=== PATIENT | female | born 1960 | race Caucasian/White ===

== ENCOUNTER 2022-09-03 21:00 | Outpatient (REF) | payer OTHER, SELFPAY ==
[2022-09-07 15:08] LABS: Age Gdln ACOG Testing Note (.); HPV Aptima Negative (Negative); IGP, Aptima HPV, rfx 16/18,45 Note (.)
== END 2022-09-03 21:01 | disposition home or self-care (01) ==
LOC: LAB 21:00
PROVIDERS: PCP Internal Medicine; Visit Provider Physician Assistant
DX: Z01.419 Encounter for gynecological examination (general) (routine) without abnormal findings (principal)
CPT/HCPCS: 87624; G0145

== ENCOUNTER 2022-09-25 15:15 | Outpatient (OUT) | payer OTHER, SELFPAY ==
--- NOTE | 2022-09-25 15:15 | XR_ITS ---
The [address] [address] Patient Name: SVETLANA BURNETT MRN: [id number] date: 1960 Sex: F Assigned Patient Location: [facility] Current Patient Location: [facility] Accession/Order Number: [id number] Exam Date: 09/25/2022 15:14 Report Date: 09/25/2022 18:59 At the request of: ANIRUDH HILL Procedure: XR foot LT min 3V PROCEDURE: XR foot LT min 3V COMPARISON: None. HISTORY: LEFT FOOT PAIN FINDINGS: BONES:No fracture, acute abnormality, or significant arthropathy. SOFT TISSUES:Negative. No visible soft tissue swelling. EFFUSION:None visible. OTHER: Negative. XR/XR foot LT min 3V IMPRESSION: No acute radiographic abnormality Electronically authenticated by: HAIR DIETZ Date: 09/25/2022 18:59
== END 2022-09-25 15:16 | disposition home or self-care (01) ==
LOC: RAD 15:15
PROVIDERS: PCP Internal Medicine; Visit Provider Physician Assistant
DX: M79.672 Pain in left foot (principal)
CPT/HCPCS: 73630

== ENCOUNTER 2022-10-20 06:44 | Outpatient (OUT) | payer OTHER, SELFPAY ==
[2022-10-20 07:37] LABS: Chol HDL Ratio 4.2; Cholesterol 292 mg/dL (<=200); HDL Cholesterol 70 mg/dL (40-60); Triglycerides 43 mg/dL (<=150); VLDL CHOLESTEROL 8.6 mg/dL
== END 2022-10-20 06:45 | disposition home or self-care (01) ==
LOC: LAB 06:44
PROVIDERS: PCP Internal Medicine; Visit Provider Internal Medicine Interventional Cardiology
DX: E78.2 Mixed hyperlipidemia (principal)
CPT/HCPCS: 36415; 80061

== ENCOUNTER 2022-10-23 08:45 | Outpatient (OUT) | payer OTHER, SELFPAY ==
[2022-10-23 09:02] LABS: Estimated Average Glucose 105 mg/dL; Glycohemoglobin A1C 5.3 % (4.5-6.2)
== END 2022-10-23 08:46 | disposition home or self-care (01) ==
LOC: LAB 08:45
PROVIDERS: PCP Internal Medicine; Visit Provider Internal Medicine
DX: R73.9 Hyperglycemia, unspecified (principal)
CPT/HCPCS: 36415; 83036

== ENCOUNTER 2023-05-31 06:29 | Outpatient (OUT) | payer OTHER, SELFPAY ==
[2023-05-31 07:15] LABS: Basophils Absolute Auto 0.1 10^3/uL (0.0-0.1); Basophils Percent Auto 2.1 % (0.2-2.0); Eosinophils Absolute Auto 0.3 10^3/uL (0.0-0.7); Eosinophils Percent Auto 5.2 % (0.9-7.0); Hemoglobin 14.4 g/dL (12.0-16.0); Immature Granulocytes Abs Auto 0.01 10^3/uL (0.00-0.03); Immature Granulocytes Pct Auto 0.2 % (0.0-0.5); Lymphocytes Absolute Auto 1.7 10^3/uL (1.2-3.8); Mean Corpuscular HGB Conc 32.7 g/dL (29.9-35.2); Mean Corpuscular Hemoglobin 28.8 pg (26.7-34.0); Mean Platelet Volume 10.7 fL (9.5-13.5); Monocytes Absolute Auto 0.8 10^3/uL (0.3-0.8); Monocytes Percent Auto 13.4 % (1.7-12.0); Neutrophils Absolute Auto 2.7 10^3/uL (1.4-6.5); Neutrophils Percent Auto 48.1 % (43.0-75.0); Platelet Count 305 10^3/uL (150-450); Red Cell Distribution Width 12.9 % (11.0-15.0); White Blood Count 5.6 10^3/uL (4.0-11.0)
[2023-05-31 07:59] LABS: Alanine Aminotransferase 51 U/L (14-59); Albumin Globulin Ratio 0.9; Albumin Level 3.4 g/dL (3.4-5.0); Alkaline Phosphatase 78 U/L (46-116); Anion Gap 13.7; Aspartate Amino Transferase 28 U/L (15-37); BUN Creatinine Ratio 27.6; Bilirubin Total 0.5 mg/dL (0.2-1.0); Calcium 9.1 mg/dL (8.5-10.1); Carbon Dioxide 29.1 mmol/L (21.0-32.0); Chloride 102 mmol/L (98-107); Chol HDL Ratio 4.6; Cholesterol 277 mg/dL (<=200); Estimated GFR (African America >60 (>=60); Estimated GFR (Non-African Ame >60 (>=60); Globulin 3.6 g/dL; Glucose 102 mg/dL (74-106); HDL Cholesterol 60 mg/dL (40-60); Potassium 3.8 mmol/L (3.5-5.1); Sodium 141 mmol/L (136-145); Triglycerides 66 mg/dL (<=150); VLDL CHOLESTEROL 13.2 mg/dL
== END 2023-05-31 06:30 | disposition home or self-care (01) ==
LOC: LAB 06:29
PROVIDERS: PCP Internal Medicine; Visit Provider Internal Medicine
DX: Z00.00 Encounter for general adult medical examination without abnormal findings (principal)
CPT/HCPCS: 36415; 80053; 80061; 80076; 85025

== ENCOUNTER 2023-07-08 07:50 | Outpatient (OUT) | payer OTHER, SELFPAY ==
--- NOTE | 2023-07-08 07:54 | CT_ITS ---
The [address] [address] Patient Name: SVETLANA BURNETT MRN: [id number] date: 1960 Sex: F Assigned Patient Location: CT Current Patient Location: CT Accession/Order Number: [id number] Exam Date: 07/08/2023 08:10 Report Date: 07/08/2023 13:03 At the request of: MARLENE MILTON Procedure: CT lung screening low-dose EXAM: CT lung screening low-dose HISTORY: Personal Dependence Of Nicotine Dependence Z87.891 COMPARISON: Low-dose CT lung screen for 30/04/2022. TECHNIQUE: Routine low-dose CT lung screen without intravenous contrast. Dose reduction techniques were achieved by using automated exposure control and/or adjustment of mA and/or kV according to patient size and/or use of iterative reconstruction technique. FINDINGS: Cardiovascular: Severe multivessel coronary artery calcifications. Moderately severe aortic valvular calcification. Moderately severe atheromatous calcifications thoracic aorta and moderate atheromatous calcification proximal abdominal aorta. Moderate atheromatous calcifications great vessels off the aortic arch. Lung: Mild linear atelectasis or parenchymal scar within both lower lobes. Nodules: Stable 0.6 cm noncalcified right upper lobe nodule (series 3 image 67). New 0.4 cm noncalcified right upper lobe nodule (series 3 image 58). Stable 0.3 cm noncalcified lingular nodule (series 3 image 92). Lymphadenopathy: There are no pathologically enlarged lymph nodes. Other: The trachea and esophagus are unremarkable. There is stable moderate thyromegaly. Upper abdomen: Moderate atheromatous calcification proximal abdominal aorta. Musculoskeletal: The bony structures are osteopenic. There is mild extra scoliosis of the thoracic spine. The vertebral body heights and degenerative changes along the spine are stable. CT/CT lung screening low-dose IMPRESSION: Stable 0.6 cm noncalcified right upper lobe nodule (series 3 image 67), new 0.4 cm noncalcified right upper lobe nodule (series 3 image 58) and stable 0.3 cm noncalcified lingular nodule (series 3 image 92). There are no pathologically enlarged lymph nodes. Severe multivessel coronary calcifications. Atherosclerotic disease as otherwise described in the body the report. Stable moderate thyromegaly. Lung rads score 3. A low-dose CT examination of the chest in 6 months is recommended. Electronically authenticated by: CHERRI VICK Date: 07/08/2023 13:03
== END 2023-07-08 07:51 | disposition home or self-care (01) ==
LOC: CT 07:50
PROVIDERS: PCP Internal Medicine; Visit Provider Internal Medicine
DX: R91.8 Other nonspecific abnormal finding of lung field (principal); Z87.891 Personal history of nicotine dependence
CPT/HCPCS: 71271

== ENCOUNTER 2023-09-09 20:04 | Outpatient (REF) | payer OTHER, SELFPAY ==
--- OUTSIDE RECORDS SUMMARY | 2023-09-09 20:08 | XMS_ITS | CCD ---
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 LIMITED ABDOMEN: No suspicious findings. Limited images of the upper abdomen. OTHER: Negative. IMPRESSION: LUNG SCREENING: Lung-RADS Category 2- Benign Appearance or Behavior. Nodules with a very low likelihood of becoming a clinically active cancer due to size or lack of growth. 2. Continue annual screening with LDCT in 12 months. Electronically authenticated by: HAIR DIETZ Date: 2022-06-30 14:46 Normal [facility] STRESS/REST MULTIon 06-21 MN STRESS/REST MULTI Patient: SUMMER SNOW Exam Date: 06/21/2022 : 1960 Gender:F Ordering : DR BRANDT MCNAMARA M.D. Admission #: [id number] Family : DR SON IRIZARRY D.O. Order #: [id number] CLICK HERE TO VIEW EXAM RADIOLOGY REPORT PROCEDURE: RADIONUCLIDE IMAGING STRESS/REST MULTI COMPARISON: MN STRESS/REST MULTI, 06/23/2020. MN STRESS/REST MULTI, 04/03/2017. INDICATIONS: Dyspnea TECHNIQUE: Exam Description: Stress/Rest one day protocol gated SPECT Rest Imagin.1 mCi Tc-99m Cardiolite IV on 06/21/2022 Stress Imaging 30.4 mCi Tc-99m Cardiolite IV on 06/21/2022 Exercise Protocol: Mohit Heart Rate (bpm): Rest: 73 Max: 139 PMHR: 88 Blood Pressure: Rest: 126/88 Max: 180/100 Exercise Time: Minutes: 11 Seconds: 00 Stage Reached: Stage: 4 Mets 13.4 Symptoms: Rest and peak stress ECG findings were abnormal and the exercise portion of the study was abnormal per attending physician Dr. Kendrick Irizarry . For more details please see separate cardiac stress test report. FINDINGS: QUALITY OF STUDY: Excellent. PERFUSION DEFECT: None. LOCATION: N/A SIZE: N/A. SEVERITY: N/A. TYPE: N/A. WALL MOTION: Normal. LV SIZE: Normal. 59 mL. TID / TCD: None; 0.7 LVEF: Normal. Calculated EF 75%. SUMMARY: Myocardial perfusion imaging study is NORMAL. CONCLUSION: 1. No reversible ischemia 2. Abnormal exercise test Dictated by: Hair Dietz MD on 06/25/2022 at 09:32 Approved by: Hair Dietz MD on 06/25/2022 at 09:33 Normal [facility] Lab Reportson 06-01-2022 Lab Reports [id number]:127 Normal [facility] ECHOCARDIO M/2D COMPLETEon 0 05-31-2022 ECHOCARDIO M/2D COMPLETE Patient: PAM SNOW Exam Date: 05/31/2022 : 1960 Gender:F Ordering : DR BRANDT MCNAMARA M.D. Admission #: [id number] Family : Order #: [id number] CLICK HERE TO VIEW EXAM ECHOCARDIOGRAM REPORT PROCEDURE: CARDIO PULMONARY ECHOCARDIO M/2D COMP INDICATIONS: Shortness of breath COMPARISON: None. DESCRIPTION: COMPLETE ECHOCARDIOGRAM Real-time transthoracic echocardiography with 2D, M-mode, spectral and color flow Doppler performed. QUALITY: Technical quality was good. LEFT VENTRICLE: Normal chamber size. Borderline left ventricular hypertrophy. Global left ventricular systolic function is normal. LV EF: Visual estimation of left ventricular ejection fraction is 65% DIASTOLIC: Normal diastolic function. ATRIAL SEPTUM: LEFT ATRIUM: Normal chamber size. RIGHT ATRIUM: Normal chamber size. RIGHT VENTRICLE: Normal chamber size. Normal right ventricular systolic function. TRICUSPID VALVE: Normal mobility and thickness. No stenosis with trivial regurgitation. No evidence of pulmonary hypertension. RVSP 29 mmHg MITRAL VALVE: Normal mobility and thickness. No mitral valve prolapse. No evidence of mitral valve stenosis. There is no mitral annular calcification. Trivial mitral regurgitation. AORTIC VALVE: Normal trileaflet appearance. No visible sclerosis. Normal leaflet mobility. No evidence of aortic valve stenosis. No aortic regurgitation. AORTIC ROOT: Normal diameter and appearance. PULMONIC VALVE: Normal thickness and mobility. No stenosis. No regurgitation. PERICARDIUM: No evidence of pericardial effusion. IVC: Collapses with inspirations. Normal size. PLEURA: CONCLUSION: 1. Normal ventricular function. LVEF is 65%. 2. No significant valvular dysfunction. 3. Normal right-sided pressures. 4. No pericardial effusion. Adult Echocardiography Procedure Report Left Ventricle LVEDD (3.7 - 5.6 cm): 4.45 cm LVESD (2.2 - 4.0 cm): 2.91 cm LVIVS thickness (0.6 - 1.2 cm): 0.87 cm LVPW thickness (0.5 - 1.0 cm): 1.14 cm e': 0.10 m/s E - e': 6.74 LVOT Max Gradient: 4.69 mm[Hg] Peak Velocity (LVOT): 1.08 m/s Mean Velocity (LVOT): 0.67 m/s LVOT Diameter 1.93 cm Left Ventricular Ejection Fraction: 65 % Left Atrium LA Volume Index (2D A2C): 49.22 ml, 49.22 ml Left Atrium Systolic Dimension: 3.02 cm Mitral Valve MV E to A Ratio: 0.75 Mitral Valve A-Wave Peak Velocity: 0.88 m/s Mitral Valve E-Wave Peak Velocity: 0.67 m/s Right Ventricle RV Internal Diastolic Dimension: 3.08 cm Aorta AO Root Diam: 3.04 cm Ascending Ao Diam: 2.50 cm Aortic Valve AoV Area (Peak Alphonso): 2.82 cm2, 2.82 cm2 AoV Area (VTI): 2.29 cm2, 2.29 cm2 Peak Velocity(Antegrade Flow): 1.13 m/s Peak Gradient(Antegrade Flow): 5.08 mm[Hg] Mean Velocity(Antegrade Flow): 0.79 m/s Mean Gradient(Antegrade Flow): 2.82 mm[Hg] Velocity Time Integral: 25.37 cm Tricuspid Valve Peak Velocity (Regurgitant Flow): 2.42 m/s, 1.90 m/s, 2.57 m/s Peak Velocity: 0.45 m/s Pulmonic Valve Mean Gradient: 2.01 mm[Hg], 0.85 mm[Hg] Mean Velocity: 0.66 m/s, 0.43 m/s Peak Velocity: 0.93 m/s, 0.62 m/s Peak Gradient: 3.47 mm[Hg], 1.53 mm[Hg] Right Atrium Right Atrium Systolic Pressure: 19.60 ml, 19.60 ml Dictated by: Brandt Mcnamara M.D. on 05/31/2022 at 22:09 Approved by: Brandt Mcnamara M.D. on 05/31/2022 at 22:12 Normal [facility] [place] [facility] [place] May 29, 2022 PAM HORTENCIA [address] [place] [address] SNOW, PAM S 1960 Dear Pam Snow , We have been trying to reach you with no success. It is important that you return our call upon receiving this letter. Also, at the time of your call, please provide us with your current information. Thank you for your prompt attention to this matter. Sincerely, [facility] [address] [facility] [place], [address] [facility] Provider Letter [facility] [place] May 29, 2022 PAM SNOW [address] [place] [address] SNOW, PAM S 1960 Dear Pam Snow , We have been trying to reach you with no success. It is important that you return our call regarding your _ upon receiving this letter. Also, at the time of your call, please provide us with your current information. Thank you for your prompt attention to this matter. Sincerely, [facility] [address] [facility] [place], [address] [facility] Lab Reportson 05-22-2022 Lab Reports [id number]:12 7 Normal [facility] Lab Reports [id number]:12 7 Normal [facility] PROF CHEM 8 (BAS METB)on Anion gap [Moles/Vol] 11.0 mmol/L [facility] Comment on above: Performed By: #### C KATYA, NA, CA, URIC, BUN, K, CO2, CL #### [facility] [address] [address] [address] Cesar Francis Calcium [Mass/Vol] 9.4 mg/dL Normal 8.5-10.1 [facility] Comment on above: Performed By: #### C KATYA, NA, CA, URIC, BUN, K, CO2, CL #### [facility] [address] [address] [address] Cesar Francis Chloride [Moles/Vol] 101 mmol/L Normal 98-107 [facility] Comment on above: Performed By: #### C KATYA, NA, CA, URIC, BUN, K, CO2, CL #### [facility] [address] [address] [address] Cesar Francis CO2 [Moles/Vol] 28.3 mmol/L Normal 21.0-32.0 [facility] Comment on above: Performed By: #### C KATYA, NA, CA, URIC, BUN, K, CO2, CL #### [facility] [address] [address] [address] Cesra Francis Creatinine [Mass/Vol] 0.72 mg/dL Normal 0.55-1.02 [facility] Comment on above: Performed By: #### C KATYA, NA, CA, URIC, BUN, K, CO2, CL #### [facility] [address] [address] [address] Cesar Francis EGFR-AF ERITREAN >60 Normal >=60 [facility] Comment on above: Performed By: #### C KATYA, NA, CA, URIC, BUN, K, CO2, CL #### [facility] [address] [address] [address] Cesar Francis EGFR-NON AF ERITREAN >60 Normal >=60 [facility] Comment on above: Performed By: #### C KATYA, NA, CA, URIC, BUN, K, CO2, CL #### [facility] [address] [address] [address] Cesar Francis Glucose [Mass/Vol] 92 mg/dL Normal 74-106 [facility] Comment on above: Performed By: #### C KATYA, NA, CA, URIC, BUN, K, CO2, CL #### [facility] [address] [address] [address] Cesar Francis Potassium [Moles/Vol] 3.3 mmol/L Critically low 3.5-5.1 [facility] Comment on above: Performed By: #### C KATYA, NA, CA, URIC, BUN, K, CO2, CL #### [facility] [address] [address] [address] Cesar Francis Sodium [Moles/Vol] 137 mmol/L Normal 136-145 [facility] Comment on above: Performed By: #### C KATYA, NA, CA, URIC, BUN, K, CO2, CL #### [facility] [address] [address] [address] Cesar Francis Urea nitrogen [Mass/Vol] 14.0 mg/dL Normal 7.0-18.0 [facility] Comment on above: Performed By: #### C KATYA, NA, CA, URIC, BUN, K, CO2, CL #### [facility] [address] [address] [address] Cesar Francis Urea nitrogen/Creatinine [Mass ratio] 19.4 mg/mg Normal [facility] Comment on above: Performed By: #### C KATYA, NA, CA, URIC, BUN, K, CO2, CL #### [facility] [address] [place] [address] Dr. Cesar Francis Reminderson 05-22-2022 Reminders - From: Amisha Scott To: HELIO - Recalls Nahid; Sent: 12/07/2021 15:54:24 EDT Show up: 04/20/2022 15:53:00 EST Subject: JAYDA needed May 2022 Due Date/Time: 06/07/2022 15:53:00 EDT Reminder/Recall This pt needs Renal US prior to 06/07/[address] Whitfield in [place] - pt uses [facility]-pls verify this with pt called patient to verify if she would like orders sent to [facility], left msg on voicemail for her to call office. Patient called back I will send order over to [facility]. Normal [facility] PTH INTACTon 05-19-2022 PTH, Intact 22 pg/mL Normal 15-65 [facility] Comment on above: Performed By: #### C KATYA, NA, CA, URIC, BUN, K, CO2, CL #### [facility] [address] [place] [address] Dr. Cesar Francis BUNon 05-18-2022 Urea nitrogen [Mass/Vol] 16.0 mg/dL Normal 7.0-18.0 [facility] Comment on above: Performed By: #### C KTAYA, NA, CA, URIC, BUN, K, CO2, CL #### [facility] [address] [place] [address] Dr. Cesar Francis CALCIUMon 05-18-2022 Calcium [Mass/Vol] 9.2 mg/dL Normal 8.5-10.1 [facility] Comment on above: Performed By: #### C KATYA, NA, CA, URIC, BUN, K, CO2, CL #### [facility] [address] [place] [address] Dr. Cesar Francis CHLORIDEon 05-18-2022 Chloride [Moles/Vol] 104 mmol/L Normal 98-107 [facility] Comment on above: Performed By: #### C KATYA, NA, CA, URIC, BUN, K, CO2, CL #### [facility] [address] [place] [address] Dr. Cesar Francis CO2on 05-18-2022 CO2 [Moles/Vol] 28.4 mmol/L Normal 21.0-32.0 [facility] Comment on above: Performed By: #### C KATYA, NA, CA, URIC, BUN, K, CO2, CL #### [facility] [address] [place] [address] Dr. Cesar Francis CREATININEon 05-18-2022 Creatinine [Mass/Vol] 0.63 mg/dL Normal 0.55-1.02 [facility] Comment on above: Performed By: #### C KATYA, NA, CA, URIC, BUN, K, CO2, CL #### [facility] [address] [address] [address] Cesar Francis EGFR-AF ERITREAN >60 Normal >=60 [facility] Comment on above: Performed By: #### C KATYA, NA, CA, URIC, BUN, K, CO2, CL #### [facility] [address] [address] [address] Cesar Francis EGFR-NON AF ERITREAN >60 Normal >=60 [facility] Comment on above: Performed By: #### C KATYA, NA, CA, URIC, BUN, K, CO2, CL #### [facility] [address] [address] [address] Cesar Francis MG MAMM SCREEN 3D ISAIAH CADon 05-18-2022 MG MAMM SCREEN 3D ISAIAH CAD Patient: PAM SNOW Exam Date: 05/18/2022 : 1960 Gender:F Ordering : DR DALE WILSON . Admission #: [id number] Family : RACHELLE WHITFIELD . Order #: [id number] CLICK HERE TO VIEW EXAM RADIOLOGY REPORT PROCEDURE: MAMMOGRAM SCREENING 3D BILATERAL CAD COMPARISON: MG MAMM SCREEN ISAIAH W CAD, 03/28/2020. MG MAMM DIAGNOSTIC 3D ISAIAH CAD, 05/05/2021. INDICATIONS: Screening mammography Calculator Name NCI Breast Cancer Risk Assessment Tool 5 Year Breast Cancer Risk 1.20% Lifetime Breast Cancer Risk 5.20% Personal Breast Cancer No Personal Ovarian Cancer Yes, Ovarian 1981 Treatments Hysterectomy, oophrectomy Family Cancers Father with lung cancer at age 55. LOCATION: [facility] BREAST COMPOSITION: Almost entirely fatty. FINDINGS: DIAGNOSTIC CATEGORY 1--NEGATIVE. NO CHANGE FROM COMPARISON ASSESSMENT. Scattered benign-appearing lymph nodes are present. RIGHT BREAST: No significant suspicious finding. LEFT BREAST: No significant suspicious finding. RECOMMENDATIONS: ROUTINE MAMMOGRAM AND CLINICAL EVALUATION IN 12 MONTHS. PLEASE NOTE: A NORMAL MAMMOGRAM DOES NOT EXCLUDE THE POSSIBILITY OF BREAST CANCER. A CLINICALLY SUSPICIOUS PALPABLE LUMP SHOULD BE BIOPSIED. Dictated by: Hair Dietz MD on 05/18/2022 at 09:15 Approved by: Hair Dietz MD on 05/18/2022 at 09:16 Normal [facility] NAon 05-18-2022 Sodium [Moles/Vol] 140 mmol/L Normal 136-145 [facility] Comment on above: Performed By: #### C KATYA, NA, CA, URIC, BUN, K, CO2, CL #### [facility] [address] [address] [address] Cesar Francis POTASSIUMon 05-18-2022 Potassium [Moles/Vol] 2.7 mmol/L Critically low 3.5-5.1 [facility] Comment on above: Performed By: #### C KATYA, NA, CA, URIC, BUN, K, CO2, CL #### [facility] [address] [address] [address] Cesar Francis URIC ACID SERUMon 05-18-2022 Urate [Mass/Vol] 6.0 mg/dL Normal 2.6-6.0 [facility] Comment on above: Performed By: #### C KATYA, NA, CA, URIC, BUN, K, CO2, CL #### [facility] [address] [address] [address] Cesar Francis US KIDNEYSon 05-18-2022 US KIDNEYS EXAMINATION: US [facility] HISTORY: Kidney stone COMPARISON: No relevant comparison available. TECHNIQUE: Ultrasound examination was performed of the kidneys and urinary bladder. FINDINGS: RIGHT KIDNEY: Contains multiple echogenic foci favoring stones and areas of calcium deposition; largest is 7 x 4 x 2 mm. Color Doppler demonstrates blood flow within the kidney. Kidney: 10.1 x 4.7 x 4.3 cm LEFT KIDNEY: Contains multiple echogenic foci favoring stones and areas of calcium deposition; largest is 15 x 10 x 9 mm. Color Doppler demonstrates blood flow within the kidney. Kidney: 9.4 x 5.4 x 5.7 cm BLADDER: No visible wall thickening, mass, or calculi. IMPRESSION: 1. Bilateral nonobstructing nephrolithiasis. Multiple small and prominent stones within both kidneys. Electronically authenticated by: LIZET MALCOLM Date: 2022-05-18 08:47 Normal [facility] Formson 04-17-2022 Forms [id number]:12 7 Normal [facility] Reminderson 04-17-2022 Reminders - From: Yolanda Mauro To: Cristiane Grier; Sent: 12/07/2021 15:51:13 EDT Show up: 04/08/2022 14:51:00 EST Subject: LithoLinadry Due Date/Time: 05/08/2022 14:51:00 EST Reminder Message Patient needs LithoLink mailed to her prior to 6 month appointment. Litholink order faxed 04/17/22 Normal [facility] XR CHEST 2 Von 04-17-2022 XR CHEST 2 V EXAM: XR CHEST 2 V HISTORY: Cough intermittently for the past 5 weeks. COMPARISON: 07/15/2017 TECHNIQUE: Upright PA and lateral chest x-ray FINDINGS: The heart is not enlarged and the vasculature is not distended. No acute infiltrate, effusion or pneumothorax is clearly identified. Degenerative changes are seen in the spine. IMPRESSION: No apparent acute infiltrate or evidence of cardiac decompensation. The overall appearance of the chest is essentially unchanged. Electronically authenticated by: CHERRI HAMILTON Date: 2022-04-17 17:56 Normal [facility] CBC AUTO DIFFon 02-09-2022 BASO # 0.1 103/ul Normal 0.0-0.1 [facility] Comment on above: Performed By: #### C KATYA, NA, CA, URIC, BUN, K, CO2, CL #### [facility] [address] [place] [address] Dr. Cesar Francis Basophils/100 WBC (Bld) 2.3 % Critically high 0.2-2.0 [facility] Comment on above: Performed By: #### C KATYA, NA, CA, URIC, BUN, K, CO2, CL #### [facility] [address] [place] [address] Dr. Cesar Francis EO # 0.3 103/ul Normal 0.0-0.7 [facility] Comment on above: Performed By: #### C KATYA, NA, CA, URIC, BUN, K, CO2, CL #### [facility] [address] [place] [address] Dr. Cesar Francis Eosinophils/100 WBC (Bld) 4.1 % Normal 0.9-7.0 [facility] Comment on above: Performed By: #### C KATYA, NA, CA, URIC, BUN, K, CO2, CL #### [facility] [address] [place] [address] Dr. Cesar Francis Erythrocyte distribution width (RBC) [Ratio] 12.8 % Normal 11.0-15.0 [facility] Comment on above: Performed By: #### C KATYA, NA, CA, URIC, BUN, K, CO2, CL #### [facility] [address] [place] [address] Dr. Cesar Francis Hematocrit (Bld) [Volume fraction] 45.4 % Normal 36.0-48.0 [facility] Comment on above: Performed By: #### C KATYA, NA, CA, URIC, BUN, K, CO2, CL #### [facility] [address] [place] [address] Dr. Cesar Francis Hemoglobin (Bld) [Mass/Vol] 15.6 g/dL Normal 12.0-16.0 [facility] Comment on above: Performed By: #### C KATYA, NA, CA, URIC, BUN, K, CO2, CL #### [facility] [address] [place] [address] Dr. Cesar Francis IG # 0.01 10e3/ul Normal 0.00-0.03 [facility] Comment on above: Performed By: #### C KATYA, NA, CA, URIC, BUN, K, CO2, CL #### [facility] [address] [place] [address] Dr. Cesar Francis IG % 0.2 % Normal 0.0-0.5 [facility] Comment on above: Performed By: #### C KATYA, NA, CA, URIC, BUN, K, CO2, CL #### [facility] [address] [place] [address] Dr. Cesar Francis LYMPH # 1.6 103/ul Normal 1.2-3.8 [facility] Comment on above: Performed By: #### C KATYA, NA, CA, URIC, BUN, K, CO2, CL #### [facility] [address] [place] [address] Dr. Cesar Francis Lymphocytes/100 WBC (Bld) 26.2 % Normal 20.5-60.0 [facility] Comment on above: Performed By: #### C KATYA, NA, CA, URIC, BUN, K, CO2, CL #### [facility] [address] [place] [address] Dr. Cesar Francis MANUAL DIFF REQ NO Normal [facility] Comment on above: Performed By: #### C KATYA, NA, CA, URIC, BUN, K, CO2, CL #### [facility] [address] [place] [address] Dr. Cesar Francis MCH (RBC) [Entitic mass] 28.6 pg Normal 26.7-34.0 [facility] Comment on above: Performed By: #### C KATYA, NA, CA, URIC, BUN, K, CO2, CL #### [facility] [address] [place] [address] Dr. Cesar Francis MCHC (RBC) [Mass/Vol] 34.4 g/dL Normal 29.9-35.2 [facility] Comment on above: Performed By: #### C KATYA, NA, CA, URIC, BUN, K, CO2, CL #### [facility] [address] [place] [address] Dr. Cesar Francis MCV (RBC) [Entitic vol] 83.3 fL Normal 81.0-99.0 [facility] Comment on above: Performed By: #### C KATYA, NA, CA, URIC, BUN, K, CO2, CL #### [facility] [address] [place] [address] Dr. Cesar Francis MONO # 0.8 103/ul Normal 0.3-0.8 [facility] Comment on above: Performed By: #### C KATYA, NA, CA, URIC, BUN, K, CO2, CL #### [facility] [address] [place] [address] Dr. Cesar Francis Monocytes/100 WBC (Bld) 12.5 % Critically high 1.7-12.0 [facility] Comment on above: Performed By: #### C KATYA, NA, CA, URIC, BUN, K, CO2, CL #### [facility] [address] [place] [address] Dr. Cesar Francis NEUT # 3.3 103/ul Normal 1.4-6.5 [facility] Comment on above: Performed By: #### C KATYA, NA, CA, URIC, BUN, K, CO2, CL #### [facility] [address] [place] [address] Dr. Cesar Francis Neutrophils/100 WBC (Bld) 54.7 % Normal 43.0-75.0 [facility] Comment on above: Performed By: #### C KATYA, NA, CA, URIC, BUN, K, CO2, CL #### [facility] [address] [place] [address] Dr. Cesar Francis Platelet mean volume (Bld) [Entitic vol] 10.6 fL Normal 9.5-13.5 [facility] Comment on above: Performed By: #### C KATYA, NA, CA, URIC, BUN, K, CO2, CL #### [facility] [address] [place] [address] Dr. Cesar Francis PLT 275 103/ul Normal 150-450 [facility] Comment on above: Performed By: #### C KATYA, NA, CA, URIC, BUN, K, CO2, CL #### [facility] [address] [place] [address] Dr. Cesar Francis RBC 5.45 106/ul Critically high 4.20-5.40 [facility] Comment on above: Performed By: #### C KATYA, NA, CA, URIC, BUN, K, CO2, CL #### [facility] [address] [place] [address] Dr. Cesar Francis WBC 6.1 103/ul Normal 4.0-11.0 [facility] Comment on above: Performed By: #### C KATYA, NA, CA, URIC, BUN, K, CO2, CL #### [facility] [address] [address] [address] Cesar Francis LIPID PROFILEon 02-09-2022 CHOL-HDL RATIO NORM SEE BELOW Normal [facility] Comment on above: Result Comment: 3.3 - 4.4 LOW RISK 4.4 - 7.1 AVERAGE RISK 7.1 - 11.0 MODERATE RISK >11.0 HIGH RISK Performed By: #### C KATYA, NA, CA, URIC, BUN, K, CO2, CL #### [facility] [address] [address] [address] Cesar Francis Cholesterol [Mass/Vol] 241 mg/dL Critically high <=200 [facility] Comment on above: Performed By: #### C KATYA, NA, CA, URIC, BUN, K, CO2, CL #### [facility] [address] [place] [address] Dr. Cesar Francis Cholesterol in HDL [Mass/Vol] 66 mg/dL Critically high 40-60 [facility] Comment on above: Performed By: #### C KATYA, NA, CA, URIC, BUN, K, CO2, CL #### [facility] [address] [place] [address] Dr. Cesar Francis Cholesterol in LDL [Mass/Vol] 156.0 mg/dL Normal [facility] Comment on above: Performed By: #### C KATYA, NA, CA, URIC, BUN, K, CO2, CL #### [facility] [address] [place] [address] Dr. Cesar Francis Cholesterol.total/Ch olesterol in HDL [Mass ratio] 3.7 {ratio} Normal [facility] Comment on above: Performed By: #### C KATYA, NA, CA, URIC, BUN, K, CO2, CL #### [facility] [address] [place] [address] Dr. Cesar Francis HDL NORMAL > or = 60 mg/dl - LO W CARDIOVASCULAR RISK <40 mg/dl - HIGH CARDIOVASCULAR RISK Normal [facility] Comment on above: Performed By: #### C KATYA, NA, CA, URIC, BUN, K, CO2, CL #### [facility] [address] [address] [address] Cesar Francis LDL CALC NORMAL SEE BELOW Normal [facility] Comment on above: Result Comment: <100 mg/dl OPTIMAL 100 - 129 mg/dl NEAR OR ABOVE OPTIMAL 130 - 159 mg/dl BORDERLINE HIGH 160 - 189 mg/dl HIGH >190 mg/dl VERY HIGH Performed By: #### C KATYA, NA, CA, URIC, BUN, K, CO2, CL #### [facility] [address] [address] [address] Cesar Francis Triglyceride [Mass/Vol] 95 mg/dL Normal <=150 [facility] Comment on above: Performed By: #### C KATYA, NA, CA, URIC, BUN, K, CO2, CL #### [facility] [address] [address] [address] Cesar Francis VLDL CALC 19.0 mg/dL Normal [facility] Comment on above: Performed By: #### C KATYA, NA, CA, URIC, BUN, K, CO2, CL #### [facility] [address] [address] [address] Cesar Francis PROF 14(COMP METB)on 022 Albumin [Mass/Vol] 3.6 g/dL Normal 3.4-5.0 [facility] Comment on above: Performed By: #### C KATYA, NA, CA, URIC, BUN, K, CO2, CL #### [facility] [address] [address] [address] Cesar Francis Albumin/Globulin [Mass ratio] 1.0 {ratio} Normal [facility] Comment on above: Performed By: #### C KATYA, NA, CA, URIC, BUN, K, CO2, CL #### [facility] [address] [place] [address] Dr. Cesar Francis ALP [Catalytic activity/Vol] 65 U/L Normal 46-116 [facility] Comment on above: Performed By: #### C KATYA, NA, CA, URIC, BUN, K, CO2, CL #### [facility] [address] [address] [address] Cesar Francis ALT [Catalytic activity/Vol] 31 U/L Normal 14-59 [facility] Comment on above: Performed By: #### C KATYA, NA, CA, URIC, BUN, K, CO2, CL #### [facility] [address] [place] [address] Dr. Cesar Francis Anion gap [Moles/Vol] 13.2 mmol/L Normal [facility] Comment on above: Performed By: #### C KATYA, NA, CA, URIC, BUN, K, CO2, CL #### [facility] [address] [place] [address] Dr. Cesar Francis AST [Catalytic activity/Vol] 21 U/L Normal 15-37 [facility] Comment on above: Performed By: #### C KATYA, NA, CA, URIC, BUN, K, CO2, CL #### [facility] [address] [place] [address] Dr. Cesar Francis Bilirubin [Mass/Vol] 0.5 mg/dL Normal 0.2-1.0 [facility] Comment on above: Performed By: #### C KATYA, NA, CA, URIC, BUN, K, CO2, CL #### [facility] [address] [place] [address] Dr. Cesar Francis Calcium [Mass/Vol] 9.0 mg/dL Normal 8.5-10.1 [facility] Comment on above: Performed By: #### C KATYA, NA, CA, URIC, BUN, K, CO2, CL #### [facility] [address] [place] [address] Dr. Cesar Francis Chloride [Moles/Vol] 101 mmol/L Normal 98-107 [facility] Comment on above: Performed By: #### C KATYA, NA, CA, URIC, BUN, K, CO2, CL #### [facility] [address] [place] [address] Dr. Cesar Francis CO2 [Moles/Vol] 29.5 mmol/L Normal 21.0-32.0 [facility] Comment on above: Performed By: #### C KATYA, NA, CA, URIC, BUN, K, CO2, CL #### [facility] [address] [place] [address] Dr. Cesar Francsi Creatinine [Mass/Vol] 0.71 mg/dL Normal 0.55-1.02 [facility] Comment on above: Performed By: #### C KATYA, NA, CA, URIC, BUN, K, CO2, CL #### [facility] [address] [place] [address] Dr. Cesar Francis EGFR-AF ERITREAN >60 Normal >=60 [facility] Comment on above: Performed By: #### C KATYA, NA, CA, URIC, BUN, K, CO2, CL #### [facility] [address] [place] [address] Dr. Cesar Francis EGFR-NON AF ERITREAN >60 Normal >=60 [facility] Comment on above: Performed By: #### C KATYA, NA, CA, URIC, BUN, K, CO2, CL #### [facility] [address] [place] [address] Dr. Cesar Francis Globulin (S) [Mass/Vol] 3.5 g/dL Normal [facility] Comment on above: Performed By: #### C KATYA, NA, CA, URIC, BUN, K, CO2, CL #### [facility] [address] [place] [address] Dr. Cesar Francis Glucose [Mass/Vol] 102 mg/dL Normal 74-106 [facility] Comment on above: Performed By: #### C KATYA, NA, CA, URIC, BUN, K, CO2, CL #### [facility] [address] [place] [address] Dr. Cesar Francis Potassium [Moles/Vol] 3.7 mmol/L Normal 3.5-5.1 [facility] Comment on above: Performed By: #### C KATYA, NA, CA, URIC, BUN, K, CO2, CL #### [facility] [address] [place] [address] Dr. Cesar Francis Protein [Mass/Vol] 7.1 g/dL Normal 6.4-8.2 [facility] Comment on above: Performed By: #### C KATYA, NA, CA, URIC, BUN, K, CO2, CL #### [facility] [address] [address] [address] Cesar Francis Sodium [Moles/Vol] 140 mmol/L Normal 136-145 [facility] Comment on above: Performed By: #### C KATYA, NA, CA, URIC, BUN, K, CO2, CL #### [facility] [address] [address] [address] Cesar Francis Urea nitrogen [Mass/Vol] 28.0 mg/dL Critically high 7.0-18.0 [facility] Comment on above: Performed By: #### C KATYA, NA, CA, URIC, BUN, K, CO2, CL #### [facility] [address] [address] [address] Cesar Francis Urea nitrogen/Creatinine [Mass ratio] 39.4 mg/mg Normal [facility] Comment on above: Performed By: #### C KATYA, NA, CA, URIC, BUN, K, CO2, CL #### [facility] [address] [address] [address] Cesar Francis Screenson 12-08-2021 Screens [id number]:12 7 Normal [facility] Ambulatory Visit Summaryon 0 12-07-2021 Ambulatory Visit Summary QUE SNOWA oJlly :1960 Visit Date:12/07/2021 Ambulatory Visit Instructions Your Diagnosis Kidney stone Tests Performed Urnls Dip Stick Auto w/o Microscopy POC [id number] XR Abdomen 1 View -- Results Pending -- Please visit your patient portal for your results or contact your primary care physician. Your Care Team Attending Physician - Nahid KELLY, Rachelle Monroe Primary Care Physician - SON IRIZARRY DO This Is Your Medications List Contact prescribing physician if questions or concerns Misc Prescription (fosamax) Misc Prescription (sennasides 8.6 mg) Non-Formulary Medication (neocell super collagen 5000mcg) alirocumab (Praluent Syringe 75 mg/mL subcutaneous solution) aspirin buPROPion (buPROPion 300 mg XL /24 hrs) cefdinir (cefdinir 300 mg Cap) cholecalciferol (Vitamin D3) cyanocobalamin (Vitamin B-12 1000 mcg/mL injectable solution) hydrochlorothiazide (hydrochlorothiazide 25 mg Tab) potassium citrate (potassium CITRATE 10 mEq ER Tab) Procedures Performed Cystoscopy (05/27/2018), Cystoscopy (12/03/2017), Cystoscopy (09/27/2016), ESWL - Extracorporeal shockwave lithotripsy for renal calculus (08/16/2016), ESWL - Extracorporeal shockwave lithotripsy for renal calculus (07/26/2016), Cystoscopy (06/27/2015), Cystoscopy (08/10/2014), ESWL - Extracorporeal shockwave lithotripsy for renal calculus (06/12/2012), ESWL - Extracorporeal shockwave lithotripsy for renal calculus (05/15/2012), Cystoscopy (03/13/2012), Sling procedure of bladder neck (09/13/2011), Sling procedure of bladder neck (08/23/2011), Cystoscopy (07/16/2011), Cystoscopy (06/27/2009), Urodynamics (06/27/2009), ESWL - Extracorporeal shockwave lithotripsy for renal calculus (02/17/2009), ESWL - Extracorporeal shockwave lithotripsy for renal calculus (01/20/2009), Hysterectomy, hysterectomy, kidney surgery, Placement of stent in cardiac conduit, stents. Discharge Vitals Height 162 cm Height 64 in Weight 74.5 kg Weight 163.9 lb BMI 28.39 What to do next Scheduled Follow-Up Appointments 2022 3:15 PM EDT With: Rachelle Whitfield MD Where: [facility] Patient Educationon 12-08-19 22 Patient Education Urology Kidney Stones Kidney stones are rock-like masses that form inside of the kidneys. Kidneys are organs that make pee (urine). A kidney stone may move into other parts of the urinary tract, including: ? The tubes that connect the kidneys to the bladder (ureters). ? The bladder. ? The tube that carries urine out of the body (urethra). Kidney stones can cause very bad pain and can block the flow of pee. The stone usually leaves your body (passes) through your pee. You may need to have a doctor take out the stone. What are the causes? Kidney stones may be caused by: ? A condition in which certain glands make too much parathyroid hormone (primary hyperparathyroidism). ? A buildup of a type of crystals in the bladder made of a chemical called uric acid. The body makes uric acid when you eat certain foods. ? Narrowing (stricture) of one or both of the ureters. ? A kidney blockage that you were born with. ? Past surgery on the kidney or the ureters, such as gastric bypass surgery. What increases the risk? You are more likely to develop this condition if: ? You have had a kidney stone in the past. ? You have a family history of kidney stones. ? You do not drink enough water. ? You eat a diet that is high in protein, salt (sodium), or sugar. ? You are overweight or very overweight (obese). What are the signs or symptoms? Symptoms of a kidney stone may include: ? Pain in the side of the belly, right below the ribs (flank pain). Pain usually spreads (radiates) to the groin. ? Needing to pee often or right away (urgently). ? Pain when going pee (urinating). ? Blood in your pee (hematuria). ? Feeling like you may vomit (nauseous). ? Vomiting. ? Fever and chills. How is this treated? Treatment depends on the size, location, and makeup of the kidney stones. The stones will often pass out of the body through peeing. You may need to: ? Drink more fluid to help pass the stone. In some cases, you may be given fluids through an IV tube put into one of your veins at the hospital. ? Take medicine for pain. ? Make changes in your diet to help keep kidney stones from coming back. Sometimes, medical procedures are needed to remove a kidney stone. This may involve: ? A procedure to break up kidney stones using a beam of light (laser) or shock waves. ? Surgery to remove the kidney stones. Follow these instructions at home: Medicines ? Take [id number] and prescription medicines only as told by your doctor. ? Ask your doctor if the medicine prescribed to you requires you to avoid driving or using heavy machinery. Eating and drinking ? Drink enough fluid to keep your pee pale yellow. You may be told to drink at least 8?10 glasses of water each day. This will help you pass the stone. ? If told by your doctor, change your diet. This may include: ? Limiting how much salt you eat. ? Eating more fruits and vegetables. ? Limiting how much meat, poultry, fish, and eggs you eat. ? Follow instructions from your doctor about eating or drinking restrictions. General instructions ? Collect pee samples as told by your doctor. You may need to collect a pee sample: ? 24 hours after a stone comes out. ? 8?12 weeks after a stone comes out, and every 6?12 months after that. ? Strain your pee every time you pee (urinate), for as long as told. Use the strainer that your doctor recommends. ? Do not throw out the stone. Keep it so that it can be tested by your doctor. ? Keep all follow-up visits as told by your doctor. This is important. You may need follow-up tests. How is this prevented? To prevent another kidney stone: ? Drink enough fluid to keep your pee pale yellow. This is the best way to prevent kidney stones. ? Eat healthy foods. ? Avoid certain foods as told by your doctor. You may be told to eat less protein. ? Stay at a healthy weight. Where to find more information ? National Kidney Foundation (NKF): www.kidney.org ? [employer] (UCF): www.urologyhealth.org Contact a doctor if: ? You have pain that gets worse or does not get better with medicine. Get help right away if: ? You have a fever or chills. ? You get very bad pain. ? You get new pain in your belly (abdomen). ? You pass out (faint). ? You cannot pee. Summary ? Kidney stones are rock-like masses that form inside of the kidneys. ? Kidney stones can cause very bad pain and can block the flow of pee. ? The stones will often pass out of the body through peeing. ? Drink enough fluid to keep your pee pale yellow. This information is not intended to replace advice given to you by your health care provider. Make sure you discuss any questions you have with your health care provider. Document Released: 08/13/2008 Document Revised: 07/14/2019 Document Reviewed: 07/14/2019 [employer] Patient Education ? 2019 [employer]. [facility] Urology Office/Clinic Noteon 12-07-2021 Urology Office/Clinic Note Chief Complaint 2 month with 24 hour urine HPI Staff This is a 61 year old female here for 2 month with 24 hour urine. Previous DX: kidney stone. Pt. taking potassium citrate 20mg BID. Dysuria: no Incomplete bladder emptying: no Hematuria: UA shows trace today Frequency: no Urgency: no Nocturia: maybe 1x Stream: good stream Leaking: no Post void dripping: no Wearing pads/ Depends: no Urge incontinence: no Stress incontinence: no Incontinence without Sensory Awareness: no Abdominal pain: no Flank pain: no History of Present Illness Tests reviewed: reviewed UA & metabolic w/up I have reviewed the previous health record information and history for this patient from Dr. Whitfield. I have reviewed and verified the staff HPI to be accurate for this encounter. There have been no associated fever, chills, flank pain, or blood in the urine. Denies any urinary infections since last encounter. Review of Systems ROS - Provider Constitutional: denies weight loss, denies hot flashes. Eyes: denies eye problems. Gastrointestinal: denies nausea, denies vomiting. Cardiovascular: denies chest pain or angina. Integumentary: no dryness Musculoskeletal: denies musculoskeletal symptoms. ENMT: denies otolaryngeal symptoms. Respiratory: no shortness of breath. Heme/Lymph: denies easy bleeding tendency, denies easy bruising tendency. Psychiatric: no confusion, no anxiety. Genitourinary: See HPI. Physical Exam Vitals & Measurements HT: 64 in HT: 162 cm WT: 74.5 kg WT: 163.9 lb BMI: 28.39 General Appearance: alert , no acute distress, well nourished, well developed female. Genitourinary: bladder nonpalpable, no flank pain. Assessment/Plan 1. Kidney stone (N20.0: Calculus of kidney) Previous patient of Dr. Guardado's with history of kidney stones S/P ESWL done 2017 s/p BL PCNL in the past including open nephrolithotomy for partial staghorn many years ago 24 HR urine done 02/15/20 showed levels within normal limits. CT AP 12/2019 -small BL punctate nephrolithiasis and stone within left upper calyceal diverticulum, no obvious renal atrophy noted KUB 03/12/20 stable 10mm left nephrolithiasis KUB 05/05/2021 punctate B/L nephrolithiasis, stable 10mm LUP calcification within calyceal diverticulumOn Hydrochlorothiazide 25mg BID for the past year. 05/2021 metabolic work-up: 24hr urine - high calcium level, mildly high Sodium and low citrate. -Planned to start a low dose sodium diet and increase her citrus food/beverages into her diet and limiting animal proteins. -Serum with mild hypokalemia. Normal calcium. Elevated uric acid of 7 (05/29/21). Uric acid normal in urine. - Instructed to stop HCTZ for one month and then restart for drug holiday (was off of the medication when met w/up was done) 10/2021 Repeat metabolic stone work-up w/up: positive changes - pt's calcium decreased, excellent citrate, oxalate minimally high but within normal limits, excellent volume. Still mildly elevated sodium. No potassium labs were done even though potassium was on the lab order, otherwise serum within normal limits, uric acid back down to normal with diet. Pt. states she switched to a Mediterranean diet. Plan: -Potassium citrate 20mg, decrease to once daily -Cont HCTZ 25 mg -Decrease sodium intake-Found out she was using a lot of ranch powder seasoning which has high amt of sodium/MSG. 4 -Continue other healthy dietary modifications -repeat met w/up in 6 months, KUB & JAYDA Follow-up With When Contact Information Nahid KELLY, Rachelle Monroe, URL, URO Additional Instructions: 6 mos KUB, JAYDA Patient Education Kidney Stones, [id number] IYolanda, personally scribed for Dr. Whitfield on 12/07/2021 15:45:45. . Documentation recorded by the scribe, Iveth Mauro, accurately reflects the services(s) I performed and decisions made by me. Authenticated by Dr. Whitfield on 12/07/2021 16:42:20. Problem List/Past Medical History Ongoing Anticoagulated Calyceal diverticulum Chronic cystitis Flank pain Frequent urination Hesitancy History of uterine cancer htn Hyperlipidemia Kidney stone Microscopic hematuria Nocturia Subdural hematoma UTI (urinary tract infection) Historical cardiac High cholesterol Hyperlipidemia low potassium Renal atrophy, left Procedure/Surgical History Cystoscopy (05/27/2018), Cystoscopy (12/03/2017), Cystoscopy (09/27/2016), ESWL - Extracorporeal shockwave lithotripsy for renal calculus (08/16/2016), ESWL - Extracorporeal shockwave lithotripsy for renal calculus (07/26/2016), Cystoscopy (06/27/2015), Cystoscopy (08/10/2014), ESWL - Extracorporeal shockwave lithotripsy for renal calculus (06/12/2012), ESWL - Extracorporeal shockwave lithotripsy for renal calculus (05/15/2012), Cystoscopy (03/13/2012), Sling procedure of bladder neck (09/13/2011), Sling procedure of bladder neck (08/23/2011), Cystoscopy (07/16/2011), Cysto (more content not included)... [facility] Comment on above: Result Comment: Elec tronically Signed By: Nahid KELLY, Rachelle Monroe\.br\Date and Time Signed: 12/07/21 16:44 EDT\.br\Electronically Co-Signed By: Yolanda Mauro\.br\Date and Time Co-Signed: 12/07/21 15:46 EDT Lab Reportson 10-18-2021 Lab Reports [id number]:12 7 [facility] Lab Reportson 10-11-2021 Lab Reports [id number]#1.00CD:12 7 [facility] Lab Reports [id number]:12 7 [facility] PTH INTACTon 10-10-2021 PTH, Intact 13 pg/mL Critically low 15-65 [facility] Comment on above: Performed By: #### C KTAYA, NA, CA, URIC, BUN, K, CO2, CL #### [facility] [address] [address] [address] Cesar Francis BUNon 10-09-2021 Urea nitrogen [Mass/Vol] 11.0 mg/dL Normal 7.0-18.0 [facility] Comment on above: Performed By: #### C KATYA, NA, CA, URIC, BUN, K, CO2, CL #### [facility] [address] [address] [address] Cesar Francis CALCIUMon 10-09-2021 Calcium [Mass/Vol] 9.2 mg/dL Normal 8.5-10.1 [facility] Comment on above: Performed By: #### C KATYA, NA, CA, URIC, BUN, K, CO2, CL #### [facility] [address] [place] [address] Dr. Cesar Francis CHLORIDEon 10-09-2021 Chloride [Moles/Vol] 104 mmol/L Normal 98-107 [facility] Comment on above: Performed By: #### C KATYA, NA, CA, URIC, BUN, K, CO2, CL #### [facility] [address] [place] [address] Dr. Cesar Francis CO2on 10-09-2021 CO2 [Moles/Vol] 28.5 mmol/L Normal 21.0-32.0 [facility] Comment on above: Performed By: #### C KATYA, NA, CA, URIC, BUN, K, CO2, CL #### [facility] [address] [place] [address] Dr. Cesar Francis CREATININEon 10-09-2021 Creatinine [Mass/Vol] 0.83 mg/dL Normal 0.55-1.02 [facility] Comment on above: Performed By: #### C KATYA, NA, CA, URIC, BUN, K, CO2, CL #### [facility] [address] [address] [address] Cesar Francis EGFR-AF ERITREAN >60 Normal >=60 [facility] Comment on above: Performed By: #### C KATYA, NA, CA, URIC, BUN, K, CO2, CL #### [facility] [address] [place] [address] Dr. Cesar Francis EGFR-NON AF ERITREAN >60 Normal >=60 [facility] Comment on above: Performed By: #### C KATYA, NA, CA, URIC, BUN, K, CO2, CL #### [facility] [address] [address] [address] Cesar Francis NAon 10-09-2021 Sodium [Moles/Vol] 143 mmol/L Normal 136-145 [facility] Comment on above: Performed By: #### C KATYA, NA, CA, URIC, BUN, K, CO2, CL #### [facility] [address] [place] [address] Dr. Cesar Francis PHOSPHORUSon 10-09-2021 Phosphate [Mass/Vol] 2.7 mg/dL Normal 2.6-4.7 [facility] Comment on above: Performed By: #### C KATYA, NA, CA, URIC, BUN, K, CO2, CL #### [facility] [address] [place] [address] Dr. Cesar Francis URIC ACID SERUMon 10-09-2021 Urate [Mass/Vol] 5.8 mg/dL Normal 2.6-6.0 [facility] Comment on above: Performed By: #### C KATYA, NA, CA, URIC, BUN, K, CO2, CL #### [facility] [address] [place] [address] Dr. Cesar Francis PROTIMEon 05-04-2017 INR Coag RelTime (PPP) 1.04 {INR} Normal 0.00-1.[address] [facility] Comment on above: Order Comment: CONSE RVATIONList patient's anticoagulants for PT: NONE SPECIFIED Result Comment: Troy mmended therapeutic range is an INR of 2.0-3.0 exceptfor prevention of recurrent acute RI and mechanicalprosthetic heart valve where an INR of 2.5-3.5 isrecommended. Performed By: #### L 300.89196 ####Test performed at: [address] [address] PT SEC 11.0 seconds Normal 9.7-11.[address] [facility] Comment on above: Order Comment: CONSE RVATIONList patient's anticoagulants for PT: NONE SPECIFIED Performed By: #### L 300.75520 ####Test performed at: [address] [address] CARDIAC CATHETERIZATIONon CARDIAC CATHETERIZATION PATIENT NAME: ANNELISE SNOW#: [id number]: ANNELISE SNOW#: [id number] OF PROCEDURE: 05/03/2017CARDIAC CATHHISTORY OF PRESENT ILLNESS: Mrs. Snow is a 57-year-old lady well known tome. She has documented coronary artery disease with previous left anteriordescending stent. She also has significant hyperlipidemia and is intolerantof statins. She presents with a history of increasing fatigue and weakness.It was felt that this was probably an anginal equivalent and cardiaccatheterization was recommended.PROCEDURE: The right groin was prepped and draped in the usual manner. A 2%lidocaine was used as local anesthesia. The right femoral artery was accessedwith a multipurpose needle and a 6-Singaporean sheath inserted. Selective coronaryarteriography was performed using 6-Singaporean JL4 and 6-Singaporean JR4 catheters.Left ventriculography was performed using a 6-Singaporean angled pigtail catheter.At the end of the procedure, we proceeded to an iFr evaluation of the blockagein the circumflex artery.HEMODYNAMICS:1. Aortic pressure 120/70.2. LVEDP 10.3. No gradient on pullback from the LV to the aorta.CORONARY ARTERIOGRAM: The coronary circulation is balanced.LEFT CORONARY ARTERY:1. Left main trunk. The left main trunk appears to contain minor luminalirregularity, but no significant disease.2. Left anterior descending. The left anterior descending contains a patentstent shortly after the origin. The rest of the left anterior descendingand its diagonal branch do not contain any significant disease.3. Circumflex. The circumflex artery is a moderate size artery which givesoff a moderate size lateral/obtuse marginal branch early in its course.The lateral branch contained scattered luminal irregularities. There isan area of 60-70% narrowing at the midpoint of the posterior descendingbranch.RIGHT CORONARY ARTERY: The right coronary artery contains an area of 40-50%narrowing as the artery turns into the AV groove. The [facility] NAME: BEKA SNOW [facility] REC: [id number] [facility] ACCOUNT NUM: [id number]/BED: [place] [address] : [id number] [address] ATTENDING PHY: Candice Torres MDCARDIAC CATHETERIZATIONPATIENT NAME: ELDON SNOWR#: [id number] contain any significant disease.LEFT VENTRICULOGRAM: The left ventricular injection reveals a normal size leftventricle with normal contractility and normal ejection fraction. There is noangiographic mitral regurgitation.FINAL DIAGNOSIS:1. CAD-luminal irregularities, left main trunk-patent stent in proximal LAD-60-70% mid point. Posterior descending iqfojlsubq-73-64% mid rightcoronary artery.RECOMMENDATION: The circumflex stent will be evaluated with IFR for possibleintervention.IFR: The iFr procedure was done by the usual technique. The iFr result was0.95, which indicated that the lesion did not need intervention. At thispoint, the catheters were removed and she was transferred to the floor instable condition. Since she got IV heparin, the sheath will be removed at anappropriate time on the floor. MICHAEL MOREIRA/SEAN/[id number] 25D: 05/03/2017 13:24:11 E/S: Candice Torres MD05/07/17 0850Signature on FileSt. [facility] NAME: BEKA SNOW [facility] REC: [id number] [facility] ACCOUNT NUM: [id number]/BED: [place] [address] : [id number] [address] [address] ATTENDING PHY: Candice Torres MDCARDIAC CATHETERIZATION Normal [facility] CBC W/DIFFon 05-03-2017 BASO ABS 0.1 K/uL Normal 0.0-0.[address] [facility] Comment on above: Order Comment: CONSE RVATION Performed By: #### L 200.86267 ####Test performed at: [address] [address] Basophils/100 WBC Auto (Bld) 1.8 % Normal [facility] Comment on above: Order Comment: CONSE RVATION Performed By: #### L 200.90773 ####Test performed at: [address] [address] EOS ABS 0.2 K/uL Normal 0.0-0.[address] [facility] Comment on above: Order Comment: CONSE RVATION Performed By: #### L 200.28172 ####Test performed at: [address] [address] Eosinophils/100 leukocytes 2.6 % Normal [facility] Comment on above: Order Comment: CONSE RVATION Performed By: #### L 200.94525 ####Test performed at: [address] [address] Erythrocyte distribution width Auto Ratio (RBC) 13.7 % Normal 11.5-14.[address] [facility] Comment on above: Order Comment: CONSE RVATION Performed By: #### L 200.00598 ####Test performed at: [address] [address] Erythrocytes (RBC) 5.06 10*6/uL Normal 3.5-5.[address] [facility] Comment on above: Order Comment: CONSE RVATION Performed By: #### L 200.98726 ####Test performed at: [address] [address] Erythrocytes (RBC) 0.000 10*6/uL Normal 0-0.[address] [facility] Comment on above: Order Comment: CONSE RVATION Performed By: #### L 200.11272 ####Test performed at: [address] [address] Hematocrit (HCT) 42.6 % Normal 36.0-48.0 [facility] Comment on above: Order Comment: CONSE RVATION Performed By: #### L 200.36627 ####Test performed at: [address] [address] Hemoglobin mass conc (Bld) 14.1 g/dL Normal 12.0-15.[address] [facility] Comment on above: Order Comment: CONSE RVATION Performed By: #### L 200.23038 ####Test performed at: [address] [address] IG % 0.3 % Normal [facility] Comment on above: Order Comment: CONSE RVATION Performed By: #### L 200.40262 ####Test performed at: [address] [address] IG ABS 0.02 K/uL Normal 0-0.[address] [facility] Comment on above: Order Comment: CONSE RVATION Performed By: #### L 200.20156 ####Test performed at: [address] [address] Lymphocytes 1.5 10*3/uL Normal 1.2-3.[address] [facility] Comment on above: Order Comment: CONSE RVATION Performed By: #### L 200.04197 ####Test performed at: [address] [address] Lymphocytes/100 leukocytes 20.2 % Normal [facility] Comment on above: Order Comment: CONSE RVATION Performed By: #### L 200.47508 ####Test performed at: [address] [address] MCH 27.9 pg Normal 25.4-34.[address] [facility] Comment on above: Order Comment: CONSE RVATION Performed By: #### L 200.34594 ####Test performed at: [address] [address] MCHC mass conc (RBC) 33.1 g/dL Normal 31.5-36.[address] [facility] Comment on above: Order Comment: CONSE RVATION Performed By: #### L 200.92409 ####Test performed at: [address] [address] MCV 84.2 fL Normal 79.0-98.[address] [facility] Comment on above: Order Comment: CONSE RVATION Performed By: #### L 200.65356 ####Test performed at: [address] [address] MONO ABS 0.7 K/uL Normal 0.0-1.[address] [facility] Comment on above: Order Comment: CONSE RVATION Performed By: #### L 200.10609 ####Test performed at: [address] [address] Monocytes/100 leukocytes 9.4 % Normal [facility] Comment on above: Order Comment: CONSE RVATION Performed By: #### L 200.26405 ####Test performed at: [address] [address] Neutrophils 4.8 10*3/uL Normal 1.4-6.[address] [facility] Comment on above: Order Comment: CONSE RVATION Performed By: #### L 200.84706 ####Test performed at: [address] [address] Neutrophils/100 WBC Auto (Bld) 65.7 % Normal [facility] Comment on above: Order Comment: CONSE RVATION Performed By: #### L 200.01747 ####Test performed at: [address] [address] NRBC % 0.0 /100 WBC Normal 0-0.[address] [facility] Comment on above: Order Comment: CONSE RVATION Performed By: #### L 200.93825 ####Test performed at: [place] [address] Platelet mean volume (PMV) 11.9 fL Normal 8.7-12.[address] [facility] Comment on above: Order Comment: CONSE RVATION Performed By: #### L 200.25901 ####Test performed at: [place] [id number] Platelets 207 10*3/uL Normal 140-[address] [facility] Comment on above: Order Comment: CONSE RVATION Performed By: #### L 200.77303 ####Test performed at: [place] [id number] WBC (Leukocytes) 7.2 10*3/uL Normal 3.9-11.0 [facility] Comment on above: Order Comment: CONSE RVATION Performed By: #### L 200.38508 ####Test performed at: [place] [id number] COMP META PANELon 05-03-2017 Alanine aminotransferase (ALT) 17 U/L Normal 13-[address] [facility] Comment on above: Order Comment: CONSE RVATIONIs patient fasting? UNKNOWN Performed By: #### L 500.49441, L500.29371, L500.94632, L500.51703 ####Test performed at: [place] [id number] Albumin 3.4 g/dL Normal 3.4-5.[address] [facility] Comment on above: Order Comment: CONSE RVATIONIs patient fasting? UNKNOWN Performed By: #### L 500.48546, L500.87809, L500.56885, L500.20257 ####Test performed at: [address] [address] ALK PHOS TOTAL 96 U/L Normal 45-117 [facility] Comment on above: Order Comment: CONSE RVATIONIs patient fasting? UNKNOWN Performed By: #### L 500.46118, L500.06454, L500.15839, L500.85717 ####Test performed at: [place] [id number] Aspartate aminotransferase (AST) 15 U/L Normal 15-[address] [facility] Comment on above: Order Comment: CONSE RVATIONIs patient fasting? UNKNOWN Performed By: #### L 500.45924, L500.74933, L500.44649, L500.93148 ####Test performed at: [place] [address] BILI TOTAL 0.7 mg/dL Normal 0.2-1.[address] [facility] Comment on above: Order Comment: CONSE RVATIONIs patient fasting? UNKNOWN Performed By: #### L 500.30135, L500.98224, L500.68937, L500.88068 ####Test performed at: [place] [id number] Calcium 8.3 mg/dL Low 8.5-10.[address] [facility] Comment on above: Order Comment: CONSE RVATIONIs patient fasting? UNKNOWN Performed By: #### L 500.44545, L500.77982, L500.29475, L500.42367 ####Test performed at: [place] [id number] Chloride 108 mmol/L High 98-[address] [facility] Comment on above: Order Comment: CONSE RVATIONIs patient fasting? UNKNOWN Performed By: #### L 500.94113, L500.29988, L500.06337, L500.92938 ####Test performed at: [address] [address] CO2 30 mmol/L Normal 21-[address] [facility] Comment on above: Order Comment: CONSE RVATIONIs patient fasting? UNKNOWN Performed By: #### L 500.40205, L500.77437, L500.51813, L500.86729 ####Test performed at: [address] [address] Creatinine 0.648 mg/dL Normal 0.550-1.[address] [facility] Comment on above: Order Comment: CONSE RVATIONIs patient fasting? UNKNOWN Performed By: #### L 500.23261, L500.50490, L500.37775, L500.49772 ####Test performed at: [address] [address] Glucose mass conc 94 mg/dL Normal 74-106 [facility] Comment on above: Order Comment: CONSE RVATIONIs patient fasting? UNKNOWN Performed By: #### L 500.05093, L500.95646, L500.14185, L500.87482 ####Test performed at: [address] [address] Potassium molar conc 4.2 mmol/L Normal 3.5-5.[address] [facility] Comment on above: Order Comment: CONSE RVATIONIs patient fasting? UNKNOWN Performed By: #### L 500.59161, L500.77319, L500.85675, L500.76323 ####Test performed at: [address] [address] Protein 6.4 g/dL Normal 6.4-8.[address] [facility] Comment on above: Order Comment: CONSE RVATIONIs patient fasting? UNKNOWN Performed By: #### L 500.28900, L500.84555, L500.43694, L500.09050 ####Test performed at: [place] [address] Sodium 142 mmol/L Normal 136-[address] [facility] Comment on above: Order Comment: CONSE RVATIONIs patient fasting? UNKNOWN Performed By: #### L 500.72147, L500.30755, L500.73861, L500.48691 ####Test performed at: [place] [address] Urea nitrogen 10 mg/dL Normal 7-[address] [facility] Comment on above: Order Comment: CONSE RVATIONIs patient fasting? UNKNOWN Performed By: #### L 500.01664, L500.09704, L500.16241, L500.87795 ####Test performed at: [place] [address] Cardiology Progress Noteon 0 05-03-2017 Cardiology Progress Note [facility] Pt Name: QUE SNOWA[address] MR#: [id number], [place] [address] ACCT: [id number] NOTE - Cardiology : 59Service Date: 05/04/17 1131NAME: ANNELISE SNOW#: [id number] OF SERVICE: 05/04/2017CARDIOLOGY PROGRESS NOTESUBJECTIVE: Mrs. Snow has no complaints this morning.OBJECTIVE: VITAL SIGNS: Blood pressure 123/77, heart rate in the 70s.Head: Pupils are equal and reactive. Extraocular movements are normal.There is no facial asymmetry.NECK: Brisk carotid pulses with no bruits. Jugular venous pressure isnormal.Cardiac: Normal heart sounds with no murmurs or gallops.Lungs: Clear to auscultation.Abdomen: No tenderness, masses, organomegaly, or bruits. Bowel sounds arepresent. Catheterization site, there is a small hematoma that is nontender.No bruit.EXTREMITIES: No peripheral edema. Peripheral pulses are palpable.LABORATORY DATA: There are no new labs.IMPRESSION:1. CAD.2. Hyperlipidemia.RECOMMENDA TIONS: He can be discharged today. Will follow up with me with jason 1 month. CANDICE TORRES, MDRJS/[facility]/[id number] 35D: 05/04/2017 11:31:37 eSign Date and TimeSteele,Candice Blanca MD Signature on File 05/04/[address] [facility] EKGon 05-03-2017 EKG Acquired on 05/03/19 18 0957Vent. Rate : 055 BPM Atrial Rate : 055 BPMP-R Int : 188 ms QRS Dur : 080 msQT Int : 396 ms P-R-T Axes : 058 062 055 degreesQTc Int : 378 msSinus bradycardiaOtherwise normal ECGNo previous ECGs availableConfirmed by CANDICE TORRES MD ([id number]) on 05/04/2017 11:16:47 AMReferred By: Confirmed By:CANDICE TORRES [id number] 2017 [facility] PT NAME: ANNELISE SNOW#: [id number] [place] [address] ACCT: [id number]: 59EKG REPORT Normal [facility] EST. CREAT CLRon 05-03-2017 Creatinine 104.424 ML/MIN Normal [facility] Comment on above: Order Comment: CONSE RVATIONIs patient fasting? UNKNOWN Result Comment: This result is an ESTIMATED blood creatinine clearance valuewhich is derived from the patient age, sex, weight, andprevious blood creatinine result. Performed By: #### L 500.01543, L500.09246, L500.43041, L500.48968 ####Test performed at: [place] [address] GFR ESTIMATEon 05-03-2017 IF AMER > 60 Normal > 60 [facility] Comment on above: Order Comment: CONSE RVATIONIs patient fasting? UNKNOWN Result Comment: eGFR (Estimated GFR) Units of measure:mL/min/1.73 meters sq.*CALCULATION REVISED 12/28/2014;IDMS-traceable MDRD equationeGFR is derived from the reexpressed MDRD Study equationusing the following parameters: serum creatinine, age,gender and race. An eGFR<60 mL/min/1.73m2 for >3 monthsis consistent with chronic kidney disease. Refer to KDOQIguidelines for clinical interpretation. Performed By: #### L 500.44821, L500.39910, L500.42516, L500.35625 ####Test performed at: [place] [address] IF non-AFR AMER > 60 Normal > 60 [facility] Comment on above: Order Comment: CONSE RVATIONIs patient fasting? UNKNOWN Performed By: #### L 500.92618, L500.26969, L500.90849, L500.74925 ####Test performed at: [place] [address] LIPID PROFILEon 05-03-2017 Cholesterol 255 mg/dL High <[address] [facility] Comment on above: Order Comment: CONSE RVATIONIs patient fasting? UNKNOWN Result Comment: <200 mg/dL (Desirable) 200-240 mg/dL (Borderline) >240 mg/dL (High Risk) Performed By: #### L 500.27027, L500.24092, L500.68023, L500.86563 ####Test performed at: [place] [address] HDL Cholesterol 51 mg/dL Normal 40-60 [facility] Comment on above: Order Comment: CONSE RVATIONIs patient fasting? UNKNOWN Performed By: #### L 500.14192, L500.37976, L500.10521, L500.81638 ####Test performed at: [place] [id number] LDL Cholesterol 188 mg/dL High 60-130 [facility] Comment on above: Order Comment: CONSE RVATIONIs patient fasting? UNKNOWN Performed By: #### L 500.54497, L500.67410, L500.33782, L500.00151 ####Test performed at: [place] [address] Triglyceride 99 mg/dL Normal <[address] [facility] Comment on above: Order Comment: CONSE RVATIONIs patient fasting? UNKNOWN Result Comment: <150 mg/dL (Normal) 150-199 mg/dL (Borderline) 200-499 mg/dL (High) >500 mg/dL (Very High) Performed By: #### L 500.25563, L500.47618, L500.80197, L500.57542 ####Test performed at: [place] [address] PROTIMEon 05-03-2017 INR Coag RelTime (PPP) 1.06 {INR} Normal 0.00-1.[address] [facility] Comment on above: Order Comment: CONSE RVATIONList patient's anticoagulants for PT: HEPARIN Result Comment: Troy mmended therapeutic range is an INR of 2.0-3.0 exceptfor prevention of recurrent acute RI and mechanicalprosthetic heart valve where an INR of 2.5-3.5 isrecommended. Performed By: #### L 300.75759 ####Test performed at: [place] [id number] PT SEC 11.2 seconds Normal 9.7-11.[address] [facility] Comment on above: Order Comment: CONSE RVATIONList patient's anticoagulants for PT: HEPARIN Performed By: #### L 300.84345 ####Test performed at: [place] [address] Vital Signs Date Time Vital Sign Value Performing Clinician Arti cotton 08-15-2023 09:13-0400 Body height 165.1 cm [facility] 08-15-2023 09:13-0400 Body mass index (BMI) [Ratio] 26.6 kg/m2 [facility] 08-15-2023 09:13-0400 Body weight 72.74 kg [facility] 08-15-2023 09:13-0400 Diastolic blood pressure 69 mm[Hg] [facility] 08-15-2023 09:13-0400 Heart rate 60 /min [facility] 08-15-2023 09:13-0400 Respiratory rate 12 /min [facility] 08-15-2023 09:13-0400 Systolic blood pressure 118 mm[Hg] [facility] 06-05-2023 08:38-0400 Body height 165.1 cm [facility] 06-05-2023 08:38-0400 Body mass index (BMI) [Ratio] 26.8 kg/m2 [facility] 06-05-2023 08:38-0400 Body weight 73.02 kg [facility] 06-05-2023 08:38-0400 Diastolic blood pressure 76 mm[Hg] [facility] 06-05-2023 08:38-0400 Heart rate 73 /min [facility] 06-05-2023 08:38-0400 Respiratory rate 12 /min [facility] 06-05-2023 08:38-0400 Systolic blood pressure 124 mm[Hg] [facility] 06-19-2021 14:55-0400 Blood Pressure Location Rachelle Whitfield [facility] 06-19-2021 14:55-0400 Diastolic blood pressure 78 mm[Hg] Rachelle Whitfield [facility] 06-19-2021 14:55-0400 Heart rate 78 /min Rachelle Lue [facility] 06-19-2021 14:55-0400 Respiratory rate 16 /min Rachelle Lue [facility] 06-19-2021 14:55-0400 Systolic blood pressure 115 mm[Hg] Rachelle Lue [facility] Encounters Encounter Date Encounter Type Care Provider Facility Start: 08-28-2023 End: 08-28-2023 [facility] Start: 08-28-2023 End: 08-28-2023 Evaluation and management of inpatient [facility] Start: 08-15-2023 End: 08-15-2023 ambulatory [facility] Work Phone: Start: 08-15-2023 End: 08-15-2023 Patient encounter procedure [facility] Work Phone: Start: 08-07-2023 End: 08-07-2023 ambulatory [facility] Start: 08-07-2023 End: 08-07-2023 Encounter for preprocedural cardiovascular examination [facility] Start: 08-01-2023 Encounter for other preprocedural examination [facility] Start: 08-01-2023 End: 08-01-2023 ambulatory [facility] Start: 07-30-2023 End: 07-30-2023 ambulatory LORRAINE [facility] Not Available Start: 07-22-2023 End: 07-23-2023 ambulatory LORRAINE RAYA Not Available Start: 07-16-2023 End: 07-16-2023 ambulatory LORRAINE RAYA Not Available Start: 06-05-2023 End: 06-05-2023 ambulatory [facility] Work Phone: Start: 06-05-2023 End: 06-05-2023 Encounter for general adult medical examination without abnormal findings [facility] Start: 06-05-2023 End: 06-05-2023 Patient encounter procedure [facility] Physician [facility] Work Phone: Start: 05-31-2023 Non-patient / Non-visit [facility] Physician [facility] Work Phone: Start: 05-08-2023 Non-patient / Non-visit [facility] Physician [facility] Work Phone: Start: 05-08-2023 Non-patient / Non-visit [facility] Physician [facility] Work Phone: Start: 05-07-2023 End: 05-08-2023 ambulatory ABI GIBBS Not Available Start: 04-30-2023 End: 04-30-2023 ambulatory LORRAINE RAYA Not Available Start: 04-09-2023 End: 04-09-2023 ambulatory LORRAINE RAYA Not Available Start: 04-01-2023 End: 04-01-2023 ambulatory [facility] GIBBS Not Available Start: 03-26-2023 Patient encounter procedure [facility] Start: 03-18-2023 End: 03-19-2023 ambulatory ABI GIBBS Not Available Start: 01-30-2023 End: 01-30-2023 ambulatory [facility] Start: 11-02-2022 End: 11-02-2022 ambulatory [facility] Start: 08-20-2022 ambulatory Rachelle Whitfield Facility:[facility] Start: 06-30-2022 End: 07-01-[address] HAIR DIETZ Facility:[facility] Start: 06-21-2022 End: 06-22-[address] HAIR DIETZ Facility:[facility] Start: 06-20-2022 ambulatory BRANDT MCNAMARA Facili ty:[facility] Start: 06-09-2022 ambulatory BRANDT MCNAMARA Facili ty:[facility] Start: 05-31-2022 End: 06-01-2022 ambulatory BRANDT MCNAMARA Facility:[facility] Start: 05-22-2022 End: 05-23-2022 ambulatory RACHELLE M LUE . Facility:[facility] Start: 05-18-2022 End: 05-19-2022 ambulatory RACHELLE M LUE . Facility:[facility] Start: 04-17-2022 End: 04-18-[address] SON IRIZARRY Facility:[facility] Start: 02-15-2022 Encounter for genera l adult medical examination without abnormal findings DR SON IRIZARRY [facility] Start: 02-09-2022 End: 02-10-[address] SON IRIZARRY Facility:[facility] Start: 02-09-2022 End: 02-10-2022 Encounter for general adult medical examination without abnormal findings DR SON IRIZARRY Facility: Start: 12-07-2021 End: 12-08-2021 ambulatory Rachelle M. Lue Facility:[facility] Start: 12-07-2021 End: 12-07-2021 Patient encounter procedure Rachelle M. Lue [facility] Start: 10-09-2021 End: 10-10-2021 ambulatory RACHELLE M LUE . Facility: Start: 06-19-2021 End: 06-19-2021 Patient encounter procedure Rachelle M. Lue [facility] Start: 05-03-2017 End: 05-04-2017 Evaluation and management of inpatient Family Physician Unavailable Facility:[facility] Procedures Date Procedure Procedure Detail Performing Clinician Start: 05-27-2018 Cystoscopy Rachelle Lue Start: 12-03-2017 Cystoscopy Rachelle Lue Start: 09-27-2016 Cystoscopy Rachelle Lue Comment on above: Rt rigid/ Rt ureter/ Rt basket extraction Start: 08-16-2016 Extracorporeal shock wave lithotripsy of calculus of kidney Rachelle Lue Comment on above: Lt Start: 07-26-2016 Extracorporeal shock wave lithotripsy of calculus of kidney Rachelle Lue Comment on above: Rt Start: 06-27-2015 Cystoscopy Rachelle Lue Comment on above: Rt Rg/ Rt ureter/ ho lmium/ basket extraction Start: 08-10-2014 Cystoscopy Rachelle Lue Start: 06-12-2012 Extracorporeal shock wave lithotripsy of calculus of kidney Rachelle Lue Comment on above: Lt Start: 05-15-2012 Extracorporeal shock wave lithotripsy of calculus of kidney Rachelle Lue Comment on above: Rt Start: 03-13-2012 Cystoscopy Rachelle Lue Start: 09-13-2011 Repair of stress incontinence by suprapubic sling Rachelle Lue Start: 08-23-2011 Repair of stress incontinence by suprapubic sling Rachelle Lue Start: 07-16-2011 Cystoscopy Rachelle Lue Start: 06-27-2009 Cystoscopy Rachelle Lue Start: 06-27-2009 Urodynamic studies Yumiko y Lue Start: 02-17-2009 Extracorporeal shock wave lithotripsy of calculus of kidney Rachelle Lue Comment on above: Rt Start: 01-20-2009 Extracorporeal shock wave lithotripsy of calculus of kidney Rachelle Lue Comment on above: Lt Hysterectomy Rachelle Lue Hysterectomy Rachelle Lue kidney surgery Rachelle Whitfield Placement of stent i n cardiac conduit Rachelle Whitfield Comment on above: x2 stents Rachelle Whitfield Plan of Treatment Date Care Activity Detail Author Start: 06-05-2023 Patient referral [facility] Work Phone: Patient referral [facility] Work Phone: Immunizations Immunization Date Immunization Notes Care Provider Fa bk NEGATED: Highlighted row has not occurred!03-18-2019 influenza virus vaccine, live, attenuated, for intranasal use Rachelle Whitfield [facility] Payers Date Payer Category Payer Private Health Insurance [id number] 1960 Self-pay [id number] 1960 Unknown [id number] 1960 Unknown [id number] 2.16.84 0.1.508809.3.579.2.593 1959 Unknown [id number] 2.16.84 0.1.941855.3.579.2.593 1959 Unknown [id number] 2.16.84 0.1.810460.3.579.2.593 1959 Unknown [id number] 2.16.84 0.1.792153.3.579.2.593 1959 Unknown [id number] 2.16.84 0.1.441431.3.579.2.593 1959 Unknown [id number] 2.16.84 0.1.452950.3.579.2.593 1959 Unknown [id number] 2.16.84 0.1.894412.3.579.2.593 1959 Unknown [id number] 2.16.84 0.1.715063.3.579.2.593 1959 Unknown [id number] 2.16.84 0.1.702256.3.579.2.593 1959 Unknown [id number] 2.16.84 0.1.456914.3.579.2.593 1959 Unknown [id number] 2.16.84 0.1.011184.3.579.2.593 1959 Unknown [id number] 2.16.8 40.1.803606.3.579.2.727 1959 Unknown [id number] 2.16.8 40.1.237555.3.579.2.727 1959 Unknown [id number] 2.16.84 0.1.348112.3.579.2.1259 1959 Unknown [id number] 2.16.84 0.1.337518.3.579.2.1259 1959 Unknown [id number] 2.16.84 0.1.614992.3.579.2.1259 1959 Unknown [id number] 2.16.84 0.1.582744.3.579.2.1259 1959 Unknown [id number] 2.16.84 0.1.165832.3.579.2.1259 1959 Unknown [id number] 2.16.84 0.1.722540.3.579.2.1259 1959 Unknown [id number] 2.16.84 0.1.489044.3.579.2.1259 1959 Unknown [id number] 2.16.84 0.1.042310.3.579.2.1259 1959 Unknown [id number] 2.16.84 0.1.009672.3.579.2.1259 1959 Unknown [id number] 2.16.840 .1.878424.3.579.2.1259 1959 Unknown [id number] 2.16.8 40.1.224460.3.579.2.1286 1959 Unknown [id number] 2.16.8 40.1.482478.3.579.2.1286 1959 Unknown [id number] 2.16.8 40.1.725623.3.579.2.1286 1959 Unknown [id number] 2.16.8 40.1.650137.3.579.2.1286 1959 Unknown [id number] 2.16.8 40.1.353253.3.579.2.1286 1959 Unknown [id number] 2.16.8 40.1.352973.3.579.2.1286 Self-pay Self Pay [id number] Social History Date Type Detail Facility Start: 02-05-2017 End: 06-19-2021 Tobacco smoking status Ex-smoker (finding) [facility] Sex Assigned At Female [facility] Start: 1960 Sex Assigned At Female F [facility] Functional Status Date Assessment Result Facility 12-07-2021 Functional Status N/A [facility] [facility] Clinical Notes 06-19-2021 to 08-07-2023 Note Date & Type Note Facility 08-07-2023 Note [place] Cardiology - [facility] Malia Snow is a 63 y.o. year old female patient being seen for CAD, statin intolerance, and stable angina. She needs cleared for shoulder surgery, scheduled 08/[address] Raya. She had EKG last week at [facility]. She had routine labs with lipid panel drawn in May 2023. Denies chest pain, SOB, palpitations, and lightheadedness/syncope. Patient Active Problem List Diagnosis Chronic cystitis Diverticulum of renal calyx Flank pain History of malignant neoplasm of uterine body Hyperlipidemia Hypertension Increased frequency of urination Microscopic hematuria Nocturia Subdural hematoma (CMS/HCC) Urinary hesitancy Chronic cough Multiple pulmonary nodules Chronic rhinitis Recurrent sinus infections Coronary artery disease of [place] artery of [place] heart with stable angina pectoris (CMS/HCC) Statin intolerance Former smoker Atrophy of vagina Centrilobular emphysema (CMS/HCC) Chronic fatigue Chronic obstructive pulmonary disease (CMS/HCC) Congenital cavus deformity of left foot Dyspnea on exertion Generalized anxiety disorder History of COVID-19 Lateral epicondylitis Osteopenia of lumbar spine Stable angina (CMS/HCC) Pure hypercholesterolemia Polyp of colon Pernicious anemia Overweight (BMI 25.0-29.9) Urinary tract infection Vitamin D deficiency Age-related osteoporosis without current pathological fracture Chronic bronchitis, simple (CMS/HCC) GERD (gastroesophageal reflux disease) custodial (current) use of inhaled steroids Syncope Family History Problem Relation Name Age of Onset Other (valve replacement) Mother Coronary artery disease Sister Peripheral vascular disease Sister Coronary artery disease Brother Heart failure Brother Atrial fibrillation Brother Social History Tobacco Use Smoking status: Former Types: Cigarettes Quit date: 2008 Years since quittin.4 Smokeless tobacco: Never HPI Pam is seen in follow up. She is a 63-year-old woman with prior history of coronary artery disease status post stenting of the LAD in 2007 (cypher). She has significant hyperlipidemia and is intolerant of statins. She has tried about 5 different statins. She used to be on Praluent 75 mg every 2 weeks but that did not control her lipid profile. Increase it to 150 mg every 2 weeks. Recent LDL is 204. She did not tolerate ezetimibe. Her last cardiac catheterization in 2017 showed nonobstructive coronary disease. A treadmill stress test in 2022 showed no evidence of ischemia by myocardial nuclear perfusion imaging. Her echocardiogram in 2022 was within normal limits. she denies chest pain, shortness of breath, palpitations, dizziness, syncope and leg edema. she has good exercise tolerance. There is no claudication. She needs to have left shoulder surgery. Review of Systems Respiratory: Positive for cough. All other systems reviewed and are negative. Objective Visit Vitals BP 158/90 (BP Location: Right arm, Patient Position: Sitting) Pulse 77 Ht 1.626 m (5' 4 ) Wt 70.3 kg (155 lb) SpO2 95% BMI 26.61 kg/m??? Smoking Status Former BSA 1.78 m??? Physical Exam Constitutional: Appearance: She is well-developed. She is not ill-appearing. HENT: Head: Normocephalic and atraumatic. Nose: Nose normal. Eyes: General: No scleral icterus. Pupils: Pupils are equal, round, and reactive to light. Neck: Thyroid: No thyromegaly. Vascular: No JVD. Cardiovascular: Rate and Rhythm: Normal rate and regular rhythm. Pulses: Radial pulses are 2+ on the right side and 2+ on the left side. Heart sounds: Normal heart sounds. No murmur heard. No friction rub. No gallop. Pulmonary: Effort: Pulmonary effort is normal. No respiratory distress. Breath sounds: Normal breath sounds. No wheezing or rales. Chest: Chest wall: No tenderness. Abdominal: General: Bowel sounds are normal. There is no distension. Palpations: Abdomen is soft. Tenderness: There is no abdominal tenderness. Musculoskeletal: General: No swelling. Cervical back: Neck supple. Skin: General: Skin is warm and dry. Neurological: General: No focal deficit present. Mental Status: She is alert and oriented to person, place, and time. Psychiatric: Mood and Affect: Mood normal. Behavior: Behavior is cooperative. Judgment: Judgment normal. Allergies Allergies Allergen Reactions Kulbgxu-Jhc-Zxj Reductase Inhibitors Unknown Medications Current Outpatient Medications: aspirin 81 mg EC tablet, Take 81 mg by mouth in the morning., Disp: , Rfl: buPROPion XL (Wellbutrin XL) 300 mg 24 hr tablet, , Disp: , Rfl: cyanocobalamin (Vitamin B-12) 1,000 mcg/mL injection, , Disp: , Rfl: tvsupdhbyqu-xrtygvewv-martmcdl (Trelegy Ellipta) 100-62.5-25 mcg blister with device, 1 puff 1 (one) time each day at the same time., Disp: , Rfl: hydroCHLOROthiazide (HYDRODiuril) 25 mg ta (more content not included)... [facility] 01-30-2023 Note Currently treated wi th praluent injection [facility] 01-30-2023 Note Coronary artery dise ase is stable Continue GDMT- ASA, praluent continue risk factor modifications- heart healthy diet, regular exercise as tolerated and continue all medications. [facility] 11-22-2023 Note Hypertension is curr ently well controlled 116/76 Continue all medications- hydrochlorothiazide [facility] 01-30-2023 Note Lipid abnormalities are stable with praluent use r/t her being intolerant of statins and zetia. She is to send most recent lipid level [facility] 01-30-2023 Note Denied any angina since last vis it [facility] 01-30-2023 Note Patient here for 3 m o follow up CAD, hypertension, and hyperlipidemia. Denies chest pain, SOB, lightheadedness, and palpitations. Review of Systems Respiratory: Positive for cough. All other systems reviewed and are negative. [facility] 01-30-2023 Note [facility] CARDIOLOGY PROGR ESS NOTE HPI: Pam Snow is a 63 y.o. female here for routine F/U Coronary Artery Disease and Hyperlipidemia Patient here for 3 mo follow up CAD, hypertension, and hyperlipidemia. Denies chest pain, SOB, lightheadedness, and palpitations. She had lipid profile thru her work a couple months ago and will email results to staff- she thinks lipid levels were improved. Overall states she is feeling well, occasional fatigue but for the most part she remains active. Review of Systems Respiratory: Positive for cough. All other systems reviewed and are negative. Previous HPI- Patient here for 2 mo follow up CAD s/p 2 stents, HTN and hyperlipidemia. Had labs done this morning. C/o chronic recurring cough. She did see Dr. Nicholson and an prosthetic aides teacher recently. Hasn't smoked since 2008. She was unable to tolerate Zetia and pravastatin that Dr. Mcnamara started her on in May 2022. Previous HPI-- Currently she is very concerned about her family h/o CAD/CHF/and valvular disease. States her brother passed 2 years ago s/p [place]- but admits that he was 100pounds overweight, smoker, sedentary and ate fast food frequently. 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 Also states that she is vegetarian and tries to maintain a healthy lifestyle in light of her family history. Visit Vitals BP 116/76 (BP Location: Left arm, Patient Position: Sitting) Pulse 76 Ht 1.626 m (5' 4 ) Wt 72.1 kg (159 lb) SpO2 92% BMI 27.29 kg/m??? Smoking Status Former BSA 1.8 m??? Allergies Allergen Reactions Uybghtg-Vjs-Jlm Reductase Inhibitors Unknown Medications: Current Outpatient Medications on File Prior to Visit Medication Sig Dispense Refill aspirin 81 mg EC tablet Take 81 mg by mouth in the morning. buPROPion XL (Wellbutrin XL) 300 mg 24 hr tablet cyanocobalamin (Vitamin B-12) 1,000 mcg/mL injection zbtivxfffzb-guwyldbqr-pigwfzyu (Trelegy Ellipta) 100-62.5-25 mcg blister with device 1 puff 1 (one) time each day at the same time. hydroCHLOROthiazide (HYDRODiuril) 25 mg tablet Take 25 mg by mouth in the morning. potassium citrate CR (Urocit-K-10) 10 mEq ER tablet Take 10 mEq by mouth with breakfast and with evening meal. Praluent Pen 150 mg/mL pen injector INJECT 150MG SUBCUTANEOUSLY EVERY 2 WEEKS 6 mL 3 No current facility-administered medications on file prior to visit. Physical Exam: Constitutional: Appearance: Normal appearance. Without apparent distress HENT: Head: Normocephalic and atraumatic. Nose: Nose normal. Mouth/Throat: Mouth: Mucous membranes are moist. Eyes: Extraocular Movements: Extraocular movements intact. Conjunctiva/sclera: Conjunctivae normal. Neck: Vascular: No JVD. Cardiovascular: Rate and Rhythm: Normal rate and regular rhythm. Pulses: Dorsalis pedis pulses are 3 on the right side and 3on the left side. Posterior tibial pulses are 3 on the right side and 3 on the left side. Heart sounds: Normal heart sounds, S1 normal and S2 normal. Pulmonary: Effort: Pulmonary effort is normal. Breath sounds: Normal breath sounds. Abdominal: General: Bowel sounds are normal. Palpations: Abdomen is soft. Musculoskeletal: General: Normal range of motion. Cervical back: Normal range of motion. Right lower leg: No edema. Left lower leg: No edema. Skin: General: Skin is warm and dry. Capillary Refill: Capillary refill takes less than 2 seconds. Neurological: General: No focal deficit present. Mental Status: She is alert and oriented to person, place, and time. Psychiatric: Mood and Affect: Mood normal. Behavior: Behavior normal. Thought Content: Thought content normal. Judgment: Judgment normal. Labs: awaiting most recent lipid profile from her recent employer [employer] Addendum- 16:00 pm 11/22/22- Chol 238, Trig, 91, HDL 70, LDL 158- lipids are improved from October/2022 Labs- 07/2022- Chol 242, LDL- 176, Trig 70, HDL 52 LFT normal Last lab values have been reviewed CV Testing: Stress test 06/25/22- Normal myocardial perfusion- no reversible ischemia 05/31/22 Echo 06/30/22 CT chest- CA screening Cardiac- heavy coronary atherosclerosis Benign appearance/behavior - nodules with a low likelihood of becoming CA Assessment/Plan: Stable angina ([facility]) Denied any angina since last visit Pure hypercholesterolemia Lipid abnormalities are stable with praluent use r/t her being intolerant of statins and zetia. She is to send most recent lipid level Hypertension Hypertension is currently well controlled 116/76 Continue all medications- hydrochlorothiazide Coronary artery disease of [place] artery of [place] heart with stable angina pectoris ([facility]/HCC) Coronary artery disease is stable Continue GDMT- ASA, praluent continue risk factor modifications- heart healthy diet, regular ex (more content not included)... [facility] 11-02-2022 Note Telephone visit for 3 mo follow up lipid panel. Praluent was doubled at last visit in July 2022. Review of Systems Cardiovascular: Positive for dyspnea on exertion. Respiratory: Positive for cough. All other systems reviewed and are negative. [facility] 11-02-2022 Note Date of phone call: 11/02/2022 Total time spent in Medical Discussion: 30 minutes. Total 30 minutes The visit was initiated by the patient and conducted hfj-zrts-uc-face with use of audio-only real time telephone communication between patient and provider for a virtual visit. Verbal consent to provide and bill for this service was obtained on 11/02/2022. [facility] CARDIOLOGY PROGRESS NOTE Pam Snow is a 62 y.o. female here for routine f/U HPI F/U for HPL s/p increased dose of pralulent and f/U labs At her last visit her total cholesterol and LDL were still elevated therefore I had increased her Praluent dose for better lipid management. Review of her repeat labs her cholesterol and LDL are actually higher than what they were at her last visit, liver function remained stable. She states that she has taken a new job and may be a little more stress and she had taken a vacation for a week or 2 this summer but otherwise her lifestyle has not changed except that for months she had stopped exercising and she is just returning to regular exercise. She admits that she has been compliant with Praluent injections, she is not taking any statins or Zetia related to intolerance and side effects. Review of Systems Constitutional: Negative. Respiratory: Negative. Cardiovascular: Negative. Neurological: Negative. All other systems reviewed and are negative. Visit Vitals Smoking Status Former Allergies Allergen Reactions Qvjevpk-Pxc-Gfi Reductase Inhibitors Unknown Medications: Current Outpatient Medications on File Prior to Visit Medication Sig Dispense Refill aspirin 81 mg EC tablet Take 81 mg by mouth in the morning. buPROPion XL (Wellbutrin XL) 300 mg 24 hr tablet cyanocobalamin (Vitamin B-12) 1,000 mcg/mL injection msgyouypqfg-gqwbljbiv-hyigdcsm (Trelegy Ellipta) 100-62.5-25 mcg blister with device 1 puff 1 (one) time each day at the same time. hydroCHLOROthiazide (HYDRODiuril) 25 mg tablet Take 25 mg by mouth in the morning. potassium citrate CR (Urocit-K-10) 10 mEq ER tablet Praluent Pen 150 mg/mL pen injector INJECT 150MG SUBCUTANEOUSLY EVERY 2 WEEKS 6 mL 3 [DISCONTINUED] ezetimibe (Zetia) 10 mg tablet Take 1 tablet (10 mg) by mouth in the morning. (Patient not taking: Reported on 11/02/2022) 30 tablet 11 [DISCONTINUED] pravastatin (Pravachol) 10 mg tablet Take 1 tablet (10 mg) by mouth in the morning. (Patient not taking: Reported on 11/02/2022) 90 tablet 3 No current facility-administered medications on file prior to visit. Physical Exam: Constitutional: resp non labored and Without apparent distress- Labs: Labs 08/01/22- Chol 242, LDL- 176, Trig 70, HDL 52 LFT normal Last lab values have been reviewed CV Testing: Stress test 06/25/22- Normal myocardialperfusion- no reversible ischemia 05/31/22 Echo 06/30/22 CT chest- CA screening Cardiac- heavy coronary atherosclerosis Benign appearance/behavior - nodules with a low likelihood of becoming CA Last lab values have been reviewed Assessment/Plan: Coronary artery disease of [place] artery of [place] heart with stable angina pectoris (CMS/HCC) Coronary artery disease is stable without any concerning or limiting symptoms. Continue ASA, praluent Continue GDMT continue risk factor modifications- heart healthy diet, regular exercise as tolerated and continue all medications. Pure hypercholesterolemia Lipid abnormalities remain elevated with increased dose of praulent 150 mg subcutaneous States that she is returning to regular exercise and vegan diet. Will D/W Dr Mcnamara-interventionalist about how to proceed By using the attestations below, the signing clinician agrees that I have read and verify that the documentation has been personally reviewed by me and ensure that the documentation accurately reflects the encounter. ?GE: I discussed the patient with the resident while the patient was interacting with the resident via audio only/telephone encounter or immediately after the patient was seen. We reviewed the crenshaw portions of the service and discussed the plan with the resident. A physical examination was not performed and may limit some portions of the clinical encounter. I confirm the resident???s documentation. Please note there may be additional personal documentation from me. RTC 3months [facility] 11-02-2022 Note Lipid abnormalities remain elevated with increased dose of praulent 150 mg subcutaneous States that she is returning to regular exercise and vegan diet. Will D/W Dr Mcnamara-interventionalist about how to proceed [facility] 11-02-2022 Note Coronary artery dise ase is stable without any concerning or limiting symptoms. Continue ASA, praluent Continue GDMT continue risk factor modifications- heart healthy diet, regular exercise as tolerated and continue all medications. [facility] 12-07-2021 Hospital Discharge instructions Patient Education 12/07/2021 15:35:55 Kidney Stones, Ceeh-tv-Jsov Kidney Stones Kidney stones are rock-like masses that form inside of the kidneys. Kidneys are organs that make pee (urine). A kidney stone may move into other parts of the urinary tract, including: The tubes that connect the kidneys to the bladder (ureters). The bladder. The tube that carries urine out of the body (urethra). Kidney stones can cause very bad pain and can block the flow of pee. The stone usually leaves your body (passes) through your pee. You may need to have a doctor take out the stone. What are the causes? Kidney stones may be caused by: A condition in which certain glands make too much parathyroid hormone (primary hyperparathyroidism). A buildup of a type of crystals in the bladder made of a chemical called uric acid. The body makes uric acid when you eat certain foods. Narrowing (stricture) of one or both of the ureters. A kidney blockage that you were born with. Past surgery on the kidney or the ureters, such as gastric bypass surgery. What increases the risk? You are more likely to develop this condition if: You have had a kidney stone in the past. You have a family history of kidney stones. You do not drink enough water. You eat a diet that is high in protein, salt (sodium), or sugar. You are overweight or very overweight (obese). What are the signs or symptoms? Symptoms of a kidney stone may include: Pain in the side of the belly, right below the ribs (flank pain). Pain usually spreads (radiates) to the groin. Needing to pee often or right away (urgently). Pain when going pee (urinating). Blood in your pee (hematuria). Feeling like you may vomit (nauseous). Vomiting. Fever and chills. How is this treated? Treatment depends on the size, location, and makeup of the kidney stones. The stones will often pass out of the body through peeing. You may need to: Drink more fluid to help pass the stone. In some cases, you may be given fluids through an IV tube put into one of your veins at the hospital. Take medicine for pain. Make changes in your diet to help keep kidney stones from coming back. Sometimes, medical procedures are needed to remove a kidney stone. This may involve: A procedure to break up kidney stones using a beam of light (laser) or shock waves. Surgery to remove the kidney stones. Follow these instructions at home: Medicines Take rcdc-phf-igddbvb and prescription medicines only as told by your doctor. Ask your doctor if the medicine prescribed to you requires you to avoid driving or using heavy machinery. Eating and drinking Drink enough fluid to keep your pee pale yellow. You may be told to drink at least 8 10 glasses of water each day. This will help you pass the stone. If told by your doctor, change your diet. This may include: ?Limiting how much salt you eat. ?Eating more fruits and vegetables. ?Limiting how much meat, poultry, fish, and eggs you eat. Follow instructions from your doctor about eating or drinking restrictions. General instructions Collect pee samples as told by your doctor. You may need to collect a pee sample: ?24 hours after a stone comes out. ?8 12 weeks after a stone comes out, and every 6 12 months after that. Strain your pee every time you pee (urinate), for as long as told. Use the strainer that your doctor recommends. Do not throw out the stone. Keep it so that it can be tested by your doctor. Keep all follow-up visits as told by your doctor. This is important. You may need follow-up tests. How is this prevented? To prevent another kidney stone: Drink enough fluid to keep your pee pale yellow. This is the best way to prevent kidney stones. Eat healthy foods. Avoid certain foods as told by your doctor. You may be told to eat less protein. Stay at a healthy weight. Where to find more information National Kidney Foundation (NKF): www.kidney.org [facility] (UCF): www.urologyhealth.org Contact a doctor if: You have pain that gets worse or does not get better with medicine. Get help right away if: You have a fever or chills. You get very bad pain. You get new pain in your belly (abdomen). You pass out (faint). You cannot pee. Summary Kidney stones are rock-like masses that form inside of the kidneys. Kidney stones can cause very bad pain and can block the flow of pee. The stones will often pass out of the body through peeing. Drink enough fluid to keep your pee pale yellow. This information is not intended to replace advice given to you by your health care provider. Make sure you discuss any questions you have with your health care provider. Document Released: 08/13/2008 Document Revised: 07/14/2019 Document Reviewed: 07/14/2019 [employer] Patient Education 2020 [employer]. Follow Up Care 06/19/2021 15:23:52 With:Nahid KELLY, WILLOW Little, [facility] Address: When: Unknown [facility] 06-19-2021 Hospital Discharge instructions Patient Education 06/19/2021 15:19:44 Dietary Guidelines to Help Prevent Kidney Stones Dietary Guidelines to Help Prevent Kidney Stones Kidney stones are deposits of minerals and salts that form inside your kidneys. Your risk of developing kidney stones may be greater depending on your diet, your lifestyle, the medicines you take, and whether you have certain medical conditions. Most people can reduce their chances of developing kidney stones by following the instructions below. Depending on your overall health and the type of kidney stones you tend to develop, your dietitian may give you more specific instructions. What are tips for following this plan? Reading food labels Choose foods with no salt added or low-salt labels. Limit your sodium intake to less than 1500 mg per day. Choose foods with calcium for each meal and snack. Try to eat about 300 mg of calcium at each meal. Foods that contain 200 500 mg of calcium per serving include: ?8 oz (237 ml) of milk, fortified nondairy milk, and fortified fruit juice. ?8 oz (237 ml) of kefir, yogurt, and soy yogurt. ?4 oz (118 ml) of tofu. ?1 oz of cheese. ?1 cup (300 g) of dried figs. ?1 cup (91 g) of cooked broccoli. ?1 3 oz can of sardines or mackerel. Most people need 1000 to 1500 mg of calcium each day. Talk to your dietitian about how much calcium is recommended for you. Shopping Buy plenty of fresh fruits and vegetables. Most people do not need to avoid fruits and vegetables, even if they contain nutrients that may contribute to kidney stones. When shopping for convenience foods, choose: ?Whole pieces of fruit. ?Premade salads with dressing on the side. ?Low-fat fruit and yogurt smoothies. Avoid buying frozen meals or prepared deli foods. Look for foods with live cultures, such as yogurt and kefir. Cooking Do not add salt to food when cooking. Place a salt shaker on the table and allow each person to add his or her own salt to taste. Use vegetable protein, such as beans, textured vegetable protein (TVP), or tofu instead of meat in pasta, casseroles, and soups. Meal planning Eat less salt, if told by your dietitian. To do this: ?Avoid eating processed or premade food. ?Avoid eating fast food. Eat less animal protein, including cheese, meat, poultry, or fish, if told by your dietitian. To do this: ?Limit the number of times you have meat, poultry, fish, or cheese each week. Eat a diet free of meat at least 2 days a week. ?Eat only one serving each day of meat, poultry, fish, or seafood. ?When you prepare animal protein, cut pieces into small portion sizes. For most meat and fish, one serving is about the size of one deck of cards. Eat at least 5 servings of fresh fruits and vegetables each day. To do this: ?Keep fruits and vegetables on hand for snacks. ?Eat 1 piece of fruit or a handful of berries with breakfast. ?Have a salad and fruit at lunch. ?Have two kinds of vegetables at dinner. Limit foods that are high in a substance called oxalate. These include: ?Spinach. ?Rhubarb. ?Beets. ?Potato chips and wolof fries. ?Nuts. If you regularly take a diuretic medicine, make sure to eat at least 1 2 fruits or vegetables high in potassium each day. These include: ?Avocado. ?Banana. ?[place], prune, carrot, or tomato juice. ?Baked potato. ?Cabbage. ?Beans and split peas. General instructions Drink enough fluid to keep your urine clear or pale yellow. This is the most important thing you can do. Talk to your health care provider and dietitian about taking daily supplements. Depending on your health and the cause of your kidney stones, you may be advised: ?Not to take supplements with vitamin C. ?To take a calcium supplement. ?To take a daily probiotic supplement. ?To take other supplements such as magnesium, fish oil, or vitamin B6. Take all medicines and supplements as told by your health care provider. Limit alcohol intake to no more than 1 drink a day for non women and 2 drinks a day for men. One drink equals 12 oz of beer, 5 oz of wine, or 1 oz of hard liquor. Lose weight if told by your health care provider. Work with your dietitian to find strategies and an eating plan that works best for you. What foods are not recommended? Limit your intake of the following foods, or as told by your dietitian. Talk to your dietitian about specific foods you should avoid based on the type of kidney stones and your overall health. Grains Breads. Bagels. Rolls. Baked goods. Salted crackers. Cereal. Pasta. Vegetables Spinach. Rhubarb. Beets. Canned vegetables. Pickles. Olives. Meats and other protein foods Nuts. Nut butters. Large portions of meat, poultry, or fish. Salted or cured meats. Deli meats. Hot dogs. Sausages. Dairy Cheese. Beverages Regular soft drinks. Regular vegetable juice. Seasonings and other foods Seasoning blends with salt. Salad dressings. Canned soups. Soy sauce. Ketchup. Barbecue sauce. Canned pasta sauce. Casseroles. Pizza. Lasagna. Frozen meals. Potato chips. Singaporean fries. Summary You can reduce your risk of kidney stones by making changes to your diet. The most important thing you can do is drink enough fluid. You should drink enough fluid to keep your urine clear or pale yellow. Ask your health care provider or dietitian how much protein from animal sources you should eat each day, and also how much salt and calcium you should have each day. This information is not intended to replace advice given to you by your health care provider. Make sure you discuss any questions you have with your health care provider. Document Released: 06/22/2011 Document Revised: 06/17/2019 Document Reviewed: 02/05/2017 [employer] Education 2020 [employer]. Follow Up Care 05/15/2021 15:10:22 With:Nahid KELLY, Rachelle Monroe, URL, URO Address: [facility] [employer] [address] [address]- When:09/18/2021 Comments:w/24hr urine [facility] Evaluation + Plan note Future Appointments Appointment Date:10/02/2021 03:15:00 PM Scheduled Provider:Rachelle Whitfield MD Location:[facility] Appointment Type:URO Office Visit [facility] Evaluation + Plan note Future Appointments Appointment Date:06/07/2022 03:15:00 PM Scheduled Provider:Rachelle Whitfield MD Location:[facility] Appointment Type:URO Office Visit [facility] Evaluation note Diagnosis Onset Date ASHD (arteriosclerotic heart disease) acute Chronic bronchitis, simple a cute Elevated cholesterol acute GERD (gastroesophageal reflux disease) acute Hypertension acute Screening for colon cancer n oneactive Screening mammogram for breast cancer noneactive Wellness examination noneact yudelka [facility] Work Phone: Evaluation note* Diagnosis Onset Date Resolution Status ASHD (arteriosclerotic heart disease) acute Chronic bronchitis, simple a cute Elevated cholesterol acute GERD (gastroesophageal reflux disease) acute Hypertension acute Screening for colon cancer n oneactive Screening mammogram for breast cancer noneactive Wellness examination noneact yudelka ASHD (arteriosclerotic heart disease) acute Chronic bronchitis, simple a cute Elevated cholesterol acute Hypertension acute Preop exam for internal medicine noneactive [facility] Work Phone: Hospital course Narrative No data available for this section [facility] Progress note No data available for this section [facility] Summary Purpose Family History No Family History Records Found Relationship Condition Age at Onset Recorded Date/T rudy father Unknown Advance Directives No Advanced Directives Records Found Advance Directive Response Recorded Date/ Time Advance Directives No January 9:20pm Chief Complaint and Reason for Visit Chief Complaint Amb Documentation Amb Documentation Wellness Reason for Visit ASHD (arteriosclerot ic heart disease) Chronic bronchitis, simple Elevated cholesterol GERD (gastroesophageal reflux disease) Hypertension Screening for colon cancer Screening mammogram for breast cancer Wellness examination Chief Complaint Wellness pre op [facility] [place] Reason for Visit ASHD (arteriosclerot ic heart disease) Chronic bronchitis, simple Elevated cholesterol GERD (gastroesophageal reflux disease) Hypertension Screening for colon cancer Screening mammogram for breast cancer Wellness examination ASHD (arteriosclerotic heart disease) Chronic bronchitis, simple Elevated cholesterol Hypertension Preop exam for internal medicine Additional Source Comments INFORMATION SOURCE (unrecogn ized section and content) DATE CREATED AUTHOR 08/30/2017 [facility] DATE CREATED AUTHOR AUTHOR'S ORGANIZ ATION 07/07/2022 [facility] DATE CREATED AUTHOR AUTHOR'S ORGANIZ ATION 09/26/2022 [facility] DATE CREATED AUTHOR AUTHOR'S ORGANIZ ATION 08/02/2023 [facility] DATE CREATED AUTHOR AUTHOR'S ORGANIZ ATION 08/08/2023 [facility] DATE CREATED AUTHOR AUTHOR'S ORGANIZ ATION 08/29/2023 [facility] Care Team (unrecognized sect ion and content) Team Status: Active Member Role Status Dates Son Irizarry , Primary Care Provider Active Team Status: Active Member Role Status Dates Provider Conversion Attending Provider Active St art: March 26, 2023 Team Status: Active Member Role Status Dates Son Irizarry , Primary Care Provider Active Start: May 08, 2023 MARISSA Paul Attending Provider Active Start : May 08, 2023 Team Status: Active Member Role Status Dates Son Irizarry DO Primary Care Provider Active Start: May 08, 2023 MARISSA Irizarry Attending Provider Active St art: May 08, 2023 Team Status: Active Member Role Status Dates Son Irizarry DO Primary Care Provide r, Attending Provider Active Start: May 31, 2023 Team Status: Inactive Member Role Status Dates Son Irizarry , DO Primary Care Provide r, Attending Provider Active Start: June 05, 2023 End: June 05, 2023 Team Status: Inactive Member Role Status Dates Son Irizarry , DO Primary Care Provide r, Attending Provider Active Start: August 15, 2023 End: August 15, 2023 Goals (unrecognized section and content) Goals may be documented in a n alternate section FOR RECORDS PERTAINING TO PATIENTS WHO ARE OR HAVE BEEN ENROLLED IN A CHEMICAL DEPENDENCY/SUBSTANCEABUSE PROGRAM, SOME INFORMATION MAY BE OMITTED. This clinical summary was aggregated from multiple sources. Caution should be exercised in using it in the provision of clinical care. This summary normalizes information from multiple sources, and as a consequence, information in this document may materially change the coding, format and clinical context of patient data. In addition, data may be omitted in some cases. CLINICAL DECISIONS SHOULD BE BASED ON THE PRIMARY CLINICAL RECORDS. [employer] provides no warranty or guarantee of the accuracy or completeness of information in this document.
[2023-09-13 17:07] LABS: Age Gdln ACOG Testing Note (.); HPV Aptima Negative (Negative); IGP, Aptima HPV, rfx 16/18,45 Note (.)
== END 2023-09-09 20:05 | disposition home or self-care (01) ==
LOC: LAB 20:04
PROVIDERS: PCP Internal Medicine; Visit Provider Obstetrics & Gynecology
DX: Z01.419 Encounter for gynecological examination (general) (routine) without abnormal findings (principal)
CPT/HCPCS: 88175

== ENCOUNTER 2023-10-14 09:14 | Outpatient (OUT) | payer OTHER, SELFPAY ==
--- OUTSIDE RECORDS SUMMARY | 2023-10-13 16:51 | XMS_ITS | CCD ---
Author Organization [facility] Care Team Providers Care Online Health And Fitness Coach Name Role Phone Unavailable, Family Physician Unavailable Un available Unavailable, Family Physician Unavailable Un available Candice Torres Unavailable Unavailable Candice Torres Unavailable Unavailable SON IRIZARRY Primary Care Physician LUE .RACHELLE Consulting Unavailable LUE ., RACHELLE Reyes Attending Unavailable LUE ., RACHELLE Reyes Admitting Unavailable RODRIGO, DR FONG Primary Care Unavailable BRANDT MCNAMARA Consulting Unavailable BRANDT MCNAMARA Attending Unavailable BRANDT MCNAMARA Admitting Unavailable RODRIGO, DR FONG Primary Care Unavailable MIRELA, DR HAIR Hale Consulting Unavailable BRANDT MCNAMARA Attending Unavailable BRANDT MCNAMARA Admitting Unavailable RODRIGO, DR FONG Primary Care Unavailable BRANDT MCNAMARA Consulting Unavailable MIRELA, DR HAIR Hale Consulting Unavailable SAM .MARLENE Attending Unavailable SAMSA .MARLENE Admitting Unavailable RODRIGO, DR FONG Primary Care Unavailable SAM .MARLENE Consulting Unavailable BRANDT MCNAMARA Admitting Unavailable BRANDT MCNAMARA Attending Unavailable RODRIGO, DR FONG Primary Care Unavailable LUE ., RACHELLE Reyes Consulting Unavailable LUE ., RACHELLE Reyes Attending Unavailable LUE ., RACHELLE M Admitting Unavailable RODRIGO, DR FONG Primary Care Unavailable RODRIGO, DR FONG Primary Care Unavailable RODRIGO, DR FONG Consulting Unavailable RODRIGO, DR FONG Attending Unavailable RODRIGO, DR FONG Admitting Unavailable RODRIGO, DR FONG Primary Care Unavailable RODRIGO, DR FONG Consulting Unavailable RODRIGO, DR FONG Attending Unavailable RODRIGO, DR FONG Admitting Unavailable CHERRI HAMILTON Consulting Unavailable LUE ., RACHELLE Reyes Attending Unavailable LUE ., RACHELLE M Admitting Unavailable RODRIGO, DR FONG Primary Care Unavailable GOLD, DR LIZET Powell Consulting Unavailable LUE ., RACHELLE Reyes Consulting Unavailable KATIE ., DR HUNTER Attending Unavailable KATIE ., DR HUNTER Admitting Unavailable WEST, DR HAIR Hale Consulting Unavailable KATIE ., DR HUNTER Consulting Unavailable MOUKADALIA, BRANDT Attending Unavailable MOUKARBEL, BRANDT Admitting Unavailable BALL, DR FONG Primary Care Unavailable Rachelle Whitfield Attending Unavailable Rachelle Whitfield Attending Unavailable WILIAM, KELLIE Attending Unavailable WILIAM, KELLIE Attending Unavailable MOUKARBEL, BRANDT Attending Unavailable JOSEPHINE, LORRAINE Pratt Referring Unavailable BALL, SON Draper Primary Care Unavailable JOSEPHINE, LORRAINE Pratt Attending Unavailable JOSEPHINE, LORRAINE Pratt Referring Unavailable BALL, SON Draper Primary Care Unavailable JOSEPHINE, LORRAINE Pratt Attending Unavailable JOSEPHINE, LORRAINE Pratt Referring Unavailable BALL, SON Draper Primary Care Unavailable JOSEPHINE, LORRAINE Pratt Admitting Unavailable JOSEPHINE, LORRAINE Pratt Attending Unavailable JOSEPHINE, LORRAINE Pratt Referring Unavailable YIN, BACILIO Pratt Attending Unavailable BALL, SON Draper Primary Care Unavailable GIBBS, ABI Barbour Attending Unavailable GIBBS, ABI Barbour Referring Unavailable GIBBS, ABI Barbour Attending Unavailable JOSEPHINE, LORRAINE Pratt Attending Unavailable JOSEPHINE, LORRAINE Pratt Attending Unavailable JOSEPHINE, LORRAINE Pratt Attending Unavailable GIBBS, ABI Barbour Referring Unavailable JOSEPHINE, LORRAINE Pratt Attending Unavailable JOSEPHINE, LORRAINE Pratt Referring Unavailable JOSEPHINE, LORRAINE Pratt Attending Unavailable RUFINO MALDONADO Attending Unavailable KATIE, DALE Attending Unavailable APLING, RUFINO Corrales Attending Unavailable Allergies Allergy Classification Reported Allergen(s) Allergy Type Date of Onset Reaction(s) Facility (3 sources) Hmg-Coa Reductase Inhibitors (Statins); Translations: [statins] Drug allergy Unknown (qualifier value) [facility] (4 sources) black walnut pollen extract; Translations: [UNKSIUI-NTY-PZU REDUCTASE INHIBITORS] Drug Allergy 4 [facility] Repository Medications Current Medications Medication Drug Class(es) Dates Sig (Normalized) Sig (Original) [id number] 200 actuat albuterol 0.09 mg/actuat metered dose [...] Hcl Disconti nued 300 MG PO Daily May 08, 2023 6:25pm May 23, 2023 [...] PO Twice daily June 04, 2023 12:00am Gnlxavnubde-Uxeawnbjr-Ms lanter (2 sources) Anticholinergi c, Corticosteroid , beta2-Adrenerg ic Agonist Start: 06-04-2023 Vhgmmrepadp-Dxkgbinzh-M ilanter (Trelegy Ellipta) 100-62.5-25 mcg blister with [...] BID, # 180 tab(s), Refills(s) 3, Pharmacy: [facility], 162, cm, 03/16/20 8:23:00 EST, [...] disease (15 sources) Atherosclerotic heart disease of [place] coronary artery without angina pectoris; Translations: [Coronary [...] Range Facility Office Visiton 08-07-2023 Follow-up visit [id number] Kell Snow 1960 F Date Provider Department Center 08/07/2023 [facility] Family History Problem Relation Age of Onset Other Mother Coronary artery disease Sister Peripheral vascular disease Sister Coronary artery disease Brother Heart failure Brother Atrial fibrillation Brother Family Status - Relation Status Age at Mother Sister Brother Level of Service:06220 NC OFFICE/OUTPATIENT ESTABLISHED MOD MDM 30 MIN Normal [facility] MR SHOULDER LEFT WO IV CONTR Darío [...] Basophils (Bld) [#/Vol] 0.1 10 3/uL 0.0-0.1 [facility] Basophils/100 WBC Auto (Bld) on 05-31-2023 Basophils/100 WBC (Bld) 2.1 % 0.2-2.0 [facility] Cholesterol in LDL Calc [Mas s/Vol]on 05-31-2023 Cholesterol in LDL [Mass/Vol] 204.0 mg/dL [facility] Comment on above: <100 mg/dl [id number] 0-129 mg/dl NEAR OR ABOVE [id number] mg/dl BORDERLINE GICP184-088 mg/dl HIGH>190 mg/dl VERY HIGH Cholesterol in VLDL Calc [Ma ss/Vol]on 05-31-2023 Cholesterol in VLDL [Mass/Vol] 13.2 mg/dL [facility] Eosinophils/100 WBC Auto (Bl d)on 05-31-2023 Eosinophils/100 WBC (Bld) 5.2 % 0.9-7.0 [facility] Erythrocyte distribution wid th Auto (RBC) [Ratio]on 05-31-2023 Erythrocyte distribution width (RBC) [Ratio] 12.9 % 11.0-15.0 [facility] Estimated glomerular filtrat ion rate (GFR) non- Americanon 05-31-2023 GFR/1.73 sq M.predicted among non-blacks MDRD (S/P/Bld) [Vol rate/Area] mL/min/{1.73_m2} >=60 [facility] Globulin Calc (S) [Mass/Vol] on 05-31-2023 Globulin (S) [Mass/Vol] 3.6 g/dL [facility] Hematocrit Auto (Bld) [Volum e fraction]on 05-31-2023 Hematocrit (Bld) [Volume fraction] 44.0 % 36.0-48.0 [facility] Hemoglobin [Mass/volume] in Bloodon 05-31-2023 Hemoglobin (Bld) [Mass/Vol] 14.4 g/dL 12.0-16.0 [facility] Laboratory - Chemistry and C hemistry - challengeon 05-31-2023 Albumin [Mass/Vol] 3.4 g/dL 3.4-5.0 [facility] ALP [Catalytic activity/Vol] 78 U/L 46-116 [facility] ALT [Catalytic activity/Vol] 51 U/L 14-59 [facility] AST [Catalytic activity/Vol] 28 U/L 15-37 [facility] Bilirubin [Mass/Vol] 0.5 mg/dL 0.2-1.0 [facility] Calcium [Mass/Vol] 9.1 mg/dL 8.5-10.1 [facility] Chloride [Moles/Vol] 102 mmol/L 98-107 [facility] Cholesterol [Mass/Vol] 277 mg/dL <=200 [facility] Cholesterol in HDL [Mass/Vol] 60 mg/dL 40-60 [facility] Comment on above: > or =60 mg/dl - LOW CARDIOVASCULAR RISK<40 mg/dl - HIGH CARDIOVASCULAR RISK CO2 [Moles/Vol] 29.1 mmol/L 21.0-32.0 [facility] Creatinine [Mass/Vol] 0.76 mg/dL 0.55-1.02 [facility] GFR/1.73 sq M.predicted MDRD (S/P/Bld) [Vol rate/Area] mL/min/{1.73_m2} >=60 [facility] Glucose [Mass/Vol] 102 mg/dL 74-106 [facility] Potassium [Moles/Vol] 3.8 mmol/L 3.5-5.1 [facility] Protein [Mass/Vol] 7.0 g/dL 6.4-8.2 [facility] Sodium [Moles/Vol] 141 mmol/L 136-145 [facility] Triglyceride [Mass/Vol] 66 mg/dL <=150 [facility] Urea nitrogen [Mass/Vol] 21.0 mg/dL 7.0-18.0 [facility] Urea nitrogen/Creatinine [Mass ratio] 27.6 mg/mg [facility] Laboratory - Hematology and Cell countson 05-31-2023 Immature granulocytes/100 WBC (Bld) 0.2 % 0.0-0.5 [facility] Leukocytes [#/volume] correc johanna for nucleated erythrocytes in Blood by Automated counon 05-31-2023 WBC corrected for nucl RBC Auto (Bld) [#/Vol] 5.6 10 3/uL 4.0-11.0 [facility] Lymphocytes Auto (Bld) [#/Vo l]on 05-31-2023 Lymphocytes (Bld) [#/Vol] 1.7 10 3/uL 1.2-3.8 [facility] Lymphocytes/100 WBC Auto (Bl d)on 05-31-2023 Lymphocytes/100 WBC (Bld) 31.0 % 20.5-60.0 [facility] MCH Auto (RBC) [Entitic mass ]on 05-31-2023 MCH (RBC) [Entitic mass] 28.8 pg 26.7-34.0 [facility] MCHC Auto (RBC) [Mass/Vol]on 05-31-2023 MCHC (RBC) [Mass/Vol] 32.7 g/dL 29.9-35.2 [facility] MCV Auto (RBC) [Entitic vol] on 05-31-2023 MCV (RBC) [Entitic vol] 88.0 fL 81.0-99.0 [facility] Monocytes Auto (Bld) [#/Vol] on 05-31-2023 Monocytes (Bld) [#/Vol] 0.8 10 3/uL 0.3-0.8 [facility] Monocytes/100 WBC Auto (Bld) on 05-31-2023 Monocytes/100 WBC (Bld) 13.4 % 1.7-12.0 [facility] Neutrophils Auto (Bld) [#/Vo l]on 05-31-2023 Neutrophils (Bld) [#/Vol] 2.7 10 3/uL 1.4-6.5 [facility] Neutrophils/100 WBC Auto (Bl d)on 05-31-2023 Neutrophils/100 WBC (Bld) 48.1 % 43.0-75.0 [facility] No Panel Informationon 05-30 Eosinophils # (Auto) 0.3 10 3/uL 0.0-0.7 [facility] Immature Granulocyte # (Auto) 0.01 10 3/uL 0.00-0.03 [facility] Platelet mean volume Auto (B ld) [Entitic vol]on 05-31-2023 Platelet mean volume (Bld) [Entitic vol] 10.7 fL 9.5-13.5 [facility] Platelets Auto (Bld) [#/Vol] on 05-31-2023 Platelets (Bld) [#/Vol] 305 10 3/uL 150-450 [facility] RBC Auto (Bld) [#/Vol]on RBC (Bld) [#/Vol] 5.00 10 6/uL 4.20-5.40 [facility] Serum or plasma albumin/glob ulin mass ratioon 05-31-2023 Albumin/Globulin [Mass ratio] 0.9 {ratio} [facility] Serum or plasma anion gap de terminationon 05-31-2023 Anion gap [Moles/Vol] 13.7 mmol/L [facility] Serum or plasma total choles terol/high density lipoprotein (HDL) cholesterol mass robyn 05-31-2023 Cholesterol.total/Ch olesterol in HDL [Mass ratio] 4.6 {ratio} [facility] Comment on above: 3.3 - 4.4 LOW RISK4. 4 - 7.1 AVERAGE RISK7.1 - 11.0 MODERATE RISK>11.0 HIGH RISK Office Visiton 01-30-2023 Follow-up visit [id number] Kell Snow enrrique Azevedo 1960 Date Provider Department Center 01/30/2023 KELLIE RIVERA [facility] Family History Problem Relation Age of Onset Other Mother Coronary artery disease Sister Peripheral vascular disease Sister Coronary artery disease Brother Heart failure Brother Atrial fibrillation Brother Family Status - Relation Status Age at Mother Sister Brother Level of Service:28847 NC OFFICE/OUTPATIENT ESTABLISHED LOW MDM 20-29 MIN Normal [facility] Telemedicineon 11-02-2022 Telemedicine [id number] Kell Snow enrrique Azevedo 1960 Provider Department Center 11/02/2022 KELLIE RIVERA [facility] Family History Problem Relation Age of Onset Other Mother Coronary artery disease Sister Peripheral vascular disease Sister Coronary artery disease Brother Heart failure Brother Atrial fibrillation Brother Family Status - Relation Status Age at Mother Sister Brother Level of Service:64559 NC PHYS/QHP TELEPHONE EVALUATION 21-30 MIN Normal [facility] Reminderson 09-25-2022 Reminders - From: Yolanda Mauro To: HELIO Whitfield; Sent: 12/07/2021 15:46:40 EDT Show up: 04/08/2022 14:46:00 EST Subject: JAYDA prior to 6 mos Due Date/Time: 05/08/2022 14:46:00 EST Reminder Message Patient needs JAYDA prior to 6 month appointment. wants JAYDA done at [facility]. orders faxed to [facility] patients appt was rescheduled to 08/20/22. pt aware to have testing done prior. Patient cancelled august appointment and has not rescheduled. diagnosis is not trackable Normal [facility] CT LUNG CANCER SCREENINGon 0 06-30-2022 CT [...] by: HAIR DIETZ Date: 2022-06-30 14:46 Normal [facility] STRESS/REST MULTIon 06-21 CO STRESS/REST MULTI Patient: SUMMER SNOW Exam Date: 06/21/2022 : 1960 Gender:F Ordering : DR BRANDT MCNAMARA M.D. Admission #: [id number] Family : DR SON IRIZARRY D.O. Order #: [id number] CLICK HERE TO VIEW EXAM RADIOLOGY REPORT PROCEDURE: RADIONUCLIDE IMAGING STRESS/REST MULTI COMPARISON: NM STRESS/REST MULTI, 06/23/2020. NM STRESS/REST MULTI, 04/03/2017. INDICATIONS: Dyspnea TECHNIQUE: Exam [...] Dietz MD on 06/25/2022 at 09:33 Normal [facility] Lab Reportson 06-01-2022 Lab Reports [id number]:127 Normal [facility] ECHOCARDIO M/2D COMPLETEon 0 05-31-2022 ECHOCARDIO M/2D COMPLETE Patient: PAM SNOW Exam Date: 05/31/2022 : 1960 Gender:F Ordering : DR BRANDT MCNAMARA M.D. Admission #: [id number] Family : Order #: [id number] CLICK HERE TO VIEW EXAM ECHOCARDIOGRAM REPORT [...] Mcnamara M.D. on 05/31/2022 at 22:12 Normal [facility] May 29, 2022 PAM SNOW [address] [place] [address] SNOWEMELIA THOMPSONNDA S 1960 Dear Pam Snow , We have been trying to reach you with no success. It is important that you return our call upon receiving this letter. Also, at the time of your call, please provide us with your current information. Thank you for your prompt attention to this matter. Sincerely, [facility] [address] [facility] [place], [address] [facility] Provider Letter [facility] May 29, 2022 PAM SNOW [address] [place] [address] PAM SNOW S 1960 Dear Pam Snow , We have been trying to reach you with no success. It is important that you return our call regarding your _ upon receiving this letter. Also, at the time of your call, please provide us with your current information. Thank you for your prompt attention to this matter. Sincerely, [facility] [address] [facility] [place] [address] [facility] Lab Reportson 05-22-2022 Lab Reports [id number]:12 7 [facility] Lab Reports [id number]:12 7 [facility] PROF CHEM 8 (BAS METB)on Anion gap [Moles/Vol] 11.0 mmol/L Normal [facility] Comment on above: Performed By: #### C KATYA, NA, CA, URIC, BUN, K, CO2, CL #### [facility] [address] [place] [address] Dr. Cesar Francis Calcium [Mass/Vol] 9.4 mg/dL Normal 8.5-10.1 [facility] Comment on above: Performed By: #### C KATYA, NA, CA, URIC, BUN, K, CO2, CL #### [facility] [address] [address] [address] Cesar Francis Chloride [Moles/Vol] 101 mmol/L Normal 98-107 [facility] Comment on above: Performed By: #### C KATYA, NA, CA, URIC, BUN, K, CO2, CL #### [facility] [address] [place] [address] Dr. Cesar Francis CO2 [Moles/Vol] 28.3 mmol/L Normal 21.0-32.0 [facility] Comment on above: Performed By: #### C KATAY, NA, CA, URIC, BUN, K, CO2, CL #### [facility] [address] [place] [address] Dr. Cesar Francis Creatinine [Mass/Vol] 0.72 mg/dL Normal 0.55-1.02 [facility] Comment on above: Performed By: #### C KATYA, NA, CA, URIC, BUN, K, CO2, CL #### [facility] [address] [place] [address] Dr. Cesar Francis EGFR-AF COSTA RICAN >60 Normal >=60 [facility] Comment on above: Performed By: #### C KATYA, NA, CA, URIC, BUN, K, CO2, CL #### [facility] [address] [place] [address] Dr. Cesar Francis EGFR-NON AF COSTA RICAN >60 Normal >=60 [facility] Comment on above: Performed By: #### C KATYA, NA, CA, URIC, BUN, K, CO2, CL #### [facility] [address] [address] [address] Cesar Francis Glucose [Mass/Vol] 92 mg/dL Normal 74-106 [facility] Comment on above: Performed By: #### C KATYA, NA, CA, URIC, BUN, K, CO2, CL #### [facility] [address] [address] [address] Cesar Francis Potassium [Moles/Vol] 3.3 mmol/L Critically low 3.5-5.1 [facility] Comment on above: Performed By: #### C KATYA, NA, CA, URIC, BUN, K, CO2, CL #### [facility] [address] [address] [address] Cesar Francis Sodium [Moles/Vol] 137 mmol/L Normal 136-145 [facility] Comment on above: Performed By: #### C KATYA, NA, CA, URIC, BUN, K, CO2, CL #### [facility] [address] [address] [address] Cesar Francis Urea nitrogen [Mass/Vol] 14.0 mg/dL Normal 7.0-18.0 [facility] Comment on above: Performed By: #### C KATYA, NA, CA, URIC, BUN, K, CO2, CL #### [facility] [address] [place] [address] Dr. Cesar Francis Urea nitrogen/Creatinine [Mass ratio] 19.4 mg/mg Normal [facility] Comment on above: Performed By: #### C KATYA, NA, CA, URIC, BUN, K, CO2, CL #### [facility] [address] [address] [address] Cesar Francis Reminderson 05-22-2022 Reminders - From: Amisha Scott To: EU - Recalls Nahid; Sent: 12/07/2021 15:54:24 EDT Show up: 04/20/2022 15:53:00 EST Subject: JAYDA needed May 2022 Due Date/Time: 06/07/2022 15:53:00 EDT Reminder/Recall This pt needs Renal US prior to 06/07/[address] Whitfield in [place] - pt uses [facility]-pls verify this with pt called patient to verify if she would like orders sent to [facility], left msg on voicemail for her to call office. Patient called back I will send order over to [facility]. Normal [facility] PTH INTACTon 05-19-2022 PTH, Intact 22 pg/mL Normal 15-65 [facility] Comment on above: Performed By: #### C KATYA, NA, CA, URIC, BUN, K, CO2, CL #### [facility] [address] [place] [address] Dr. Cesar Francis BUNon 05-18-2022 Urea nitrogen [Mass/Vol] 16.0 mg/dL Normal 7.0-18.0 [facility] Comment on above: Performed By: #### C KATYA, NA, CA, URIC, BUN, K, CO2, CL #### [facility] [address] [place] [address] Dr. Cesar Francis CALCIUMon 05-18-2022 Calcium [Mass/Vol] 9.2 mg/dL Normal 8.5-10.1 [facility] Comment on above: Performed By: #### C KATYA, NA, CA, URIC, BUN, K, CO2, CL #### [facility] [address] [place] [address] Dr. Cesar Francis CHLORIDEon 05-18-2022 Chloride [Moles/Vol] 104 mmol/L Normal 98-107 [facility] Comment on above: Performed By: #### C KATYA, NA, CA, URIC, BUN, K, CO2, CL #### [facility] [address] [place] [address] Dr. Cesar Francis CO2on 05-18-2022 CO2 [Moles/Vol] 28.4 mmol/L Normal 21.0-32.0 [facility] Comment on above: Performed By: #### C KATYA, NA, CA, URIC, BUN, K, CO2, CL #### [facility] [address] [place] [address] Dr. Cesar Francis CREATININEon 05-18-2022 Creatinine [Mass/Vol] 0.63 mg/dL Normal 0.55-1.02 [facility] Comment on above: Performed By: #### C KATYA, NA, CA, URIC, BUN, K, CO2, CL #### [facility] [address] [address] [address] Cesar Francis EGFR-AF COSTA RICAN >60 Normal >=60 [facility] Comment on above: Performed By: #### C KATYA, NA, CA, URIC, BUN, K, CO2, CL #### [facility] [address] [address] [address] Cesar Francis EGFR-NON AF COSTA RICAN >60 Normal >=60 [facility] Comment on above: Performed By: #### C KATYA, NA, CA, URIC, BUN, K, CO2, CL #### [facility] [address] [address] [address] Cesar Francis MG MAMM SCREEN 3D ISAIAH CADon 05-18-2022 MG MAMM SCREEN 3D ISAIAH CAD Patient: PAM SNOW Exam Date: 05/18/2022 : 1960 Gender:F Ordering : DR DALE WILSON . Admission #: [id number] Family : RACHELLE WHITFIELD . Order #: [id number] CLICK HERE TO VIEW EXAM RADIOLOGY REPORT [...] lung cancer at age 54. LOCATION: [facility] BREAST COMPOSITION: Almost entirely fatty. FINDINGS: [...] Dietz MD on 05/18/2022 at 09:16 Normal [facility] NAon 05-18-2022 Sodium [Moles/Vol] 140 mmol/L Normal 136-145 [facility] Comment on above: Performed By: #### C KATYA, NA, CA, URIC, BUN, K, CO2, CL #### [facility] [address] [address] [address] Cesar Francis POTASSIUMon 05-18-2022 Potassium [Moles/Vol] 2.7 mmol/L Critically low 3.5-5.1 [facility] Comment on above: Performed By: #### C KATYA, NA, CA, URIC, BUN, K, CO2, CL #### [facility] [address] [place] [address] Dr. Cesar Francis URIC ACID SERUMon 05-18-2022 Urate [Mass/Vol] 6.0 mg/dL Normal 2.6-6.0 [facility] Comment on above: Performed By: #### C KATYA, NA, CA, URIC, BUN, K, CO2, CL #### [facility] [address] [place] [address] Dr. Cesar Francis US KIDNEYSon 05-18-2022 US KIDNEYS EXAMINATION: US [facility] HISTORY: Kidney stone COMPARISON: No relevant [...] by: LIZET MALCOLM Date: 2022-05-18 08:47 Normal [facility] Formson 04-17-2022 Forms [id number]:12 7 Normal [facility] Reminderson 04-17-2022 Reminders - From: Yolanda Mauro To: Cristiane Grier; Sent: 12/07/2021 15:51:13 EDT Show up: 04/08/2022 14:51:00 EST Subject: LithoLink Due Date/Time: 05/08/2022 14:51:00 EST Reminder Message Patient needs LithoLink mailed to her prior to 6 month appointment. Litholink order faxed 04/17/22 Normal [facility] XR CHEST 2 Von 04-17-2022 XR CHEST [...] CHERRI HAMILTON Date: 2022-04-17 17:56 Normal [facility] CBC AUTO DIFFon 02-09-2022 BASO # 0.1 103/ul Normal 0.0-0.1 [facility] Comment on above: Performed By: #### C KATYA, NA, CA, URIC, BUN, K, CO2, CL #### [facility] [address] [address] [address] Cesar Francis Basophils/100 WBC (Bld) 2.3 % Critically high 0.2-2.0 [facility] Comment on above: Performed By: #### C KATYA, NA, CA, URIC, BUN, K, CO2, CL #### [facility] [address] [address] [address] Cesar Francis EO # 0.3 103/ul Normal 0.0-0.7 [facility] Comment on above: Performed By: #### C KATYA, NA, CA, URIC, BUN, K, CO2, CL #### [facility] [address] [place] [address] Dr. Cesar Francis Eosinophils/100 WBC (Bld) 4.1 % Normal 0.9-7.0 [facility] Comment on above: Performed By: #### C KATYA, NA, CA, URIC, BUN, K, CO2, CL #### [facility] [address] [place] [address] Dr. Cesar Francis Erythrocyte distribution width (RBC) [Ratio] 12.8 % Normal 11.0-15.0 [facility] Comment on above: Performed By: #### C KATYA, NA, CA, URIC, BUN, K, CO2, CL #### [facility] [address] [place] [address] Dr. Cesar Francis Hematocrit (Bld) [Volume fraction] 45.4 % Normal 36.0-48.0 [facility] Comment on above: Performed By: #### C KATYA, NA, CA, URIC, BUN, K, CO2, CL #### [facility] [address] [place] [address] Dr. Cesar Francis Hemoglobin (Bld) [Mass/Vol] 15.6 g/dL Normal 12.0-16.0 [facility] Comment on above: Performed By: #### C KATYA, NA, CA, URIC, BUN, K, CO2, CL #### [facility] [address] [place] [address] Dr. Cesar Francis IG # 0.01 10e3/ul Normal 0.00-0.03 [facility] Comment on above: Performed By: #### C KATYA, NA, CA, URIC, BUN, K, CO2, CL #### [facility] [address] [place] [address] Dr. Cesar Francis IG % 0.2 % Normal 0.0-0.5 [facility] Comment on above: Performed By: #### C KATYA, NA, CA, URIC, BUN, K, CO2, CL #### [facility] [address] [place] [address] Dr. Cesar Francis LYMPH # 1.6 103/ul Normal 1.2-3.8 [facility] Comment on above: Performed By: #### C KATYA, NA, CA, URIC, BUN, K, CO2, CL #### [facility] [address] [place] [address] Dr. Cesar Francis Lymphocytes/100 WBC (Bld) 26.2 % Normal 20.5-60.0 [facility] Comment on above: Performed By: #### C KATYA, NA, CA, URIC, BUN, K, CO2, CL #### [facility] [address] [place] [address] Dr. Cesar Francis MANUAL DIFF REQ NO Normal [facility] Comment on above: Performed By: #### C KATYA, NA, CA, URIC, BUN, K, CO2, CL #### [facility] [address] [place] [address] Dr. Cesar Francis MCH (RBC) [Entitic mass] 28.6 pg Normal 26.7-34.0 [facility] Comment on above: Performed By: #### C KATYA, NA, CA, URIC, BUN, K, CO2, CL #### [facility] [address] [place] [address] Dr. Cesar Francis MCHC (RBC) [Mass/Vol] 34.4 g/dL Normal 29.9-35.2 [facility] Comment on above: Performed By: #### C KATYA, NA, CA, URIC, BUN, K, CO2, CL #### [facility] [address] [place] [address] Dr. Cesar Francis MCV (RBC) [Entitic vol] 83.3 fL Normal 81.0-99.0 [facility] Comment on above: Performed By: #### C KATYA, NA, CA, URIC, BUN, K, CO2, CL #### [facility] [address] [place] [address] Dr. Cesar Francis MONO # 0.8 103/ul Normal 0.3-0.8 [facility] Comment on above: Performed By: #### C KATYA, NA, CA, URIC, BUN, K, CO2, CL #### [facility] [address] [place] [address] Dr. Cesar Francis Monocytes/100 WBC (Bld) 12.5 % Critically high 1.7-12.0 [facility] Comment on above: Performed By: #### C KATYA, NA, CA, URIC, BUN, K, CO2, CL #### [facility] [address] [place] [address] Dr. Cesar Francis NEUT # 3.3 103/ul Normal 1.4-6.5 [facility] Comment on above: Performed By: #### C KATYA, NA, CA, URIC, BUN, K, CO2, CL #### [facility] [address] [place] [address] Dr. Cesar Francis Neutrophils/100 WBC (Bld) 54.7 % Normal 43.0-75.0 [facility] Comment on above: Performed By: #### C KATYA, NA, CA, URIC, BUN, K, CO2, CL #### [facility] [address] [place] [address] Dr. Cesar Francis Platelet mean volume (Bld) [Entitic vol] 10.6 fL Normal 9.5-13.5 [facility] Comment on above: Performed By: #### C KATYA, NA, CA, URIC, BUN, K, CO2, CL #### [facility] [address] [place] [address] Dr. Cesar Francis PLT 275 103/ul Normal 150-450 [facility] Comment on above: Performed By: #### C KATYA, NA, CA, URIC, BUN, K, CO2, CL #### [facility] [address] [place] [address] Dr. Cesar Francis RBC 5.45 106/ul Critically high 4.20-5.40 [facility] Comment on above: Performed By: #### C KATYA, NA, CA, URIC, BUN, K, CO2, CL #### [facility] [address] [place] [address] Dr. Cesar Francis WBC 6.1 103/ul Normal 4.0-11.0 [facility] Comment on above: Performed By: #### C KATYA, NA, CA, URIC, BUN, K, CO2, CL #### [facility] [address] [address] [address] Cesar Francis LIPID PROFILEon 02-09-2022 CHOL-HDL RATIO NORM SEE BELOW Normal [facility] Comment on above: Result Comment: 3.3 - 4.4 LOW RISK 4.4 - 7.1 AVERAGE RISK 7.1 - 11.0 MODERATE RISK >11.0 HIGH RISK Performed By: #### C KATYA, NA, CA, URIC, BUN, K, CO2, CL #### [facility] [address] [address] [address] Cesar Francis Cholesterol [Mass/Vol] 241 mg/dL Critically high <=200 [facility] Comment on above: Performed By: #### C KATYA, NA, CA, URIC, BUN, K, CO2, CL #### [facility] [address] [address] [address] Cesar Francis Cholesterol in HDL [Mass/Vol] 66 mg/dL Critically high 40-60 [facility] Comment on above: Performed By: #### C KATYA, NA, CA, URIC, BUN, K, CO2, CL #### [facility] [address] [place] [address] Dr. Cesar Francis Cholesterol in LDL [Mass/Vol] 156.0 mg/dL Normal [facility] Comment on above: Performed By: #### C KATYA, NA, CA, URIC, BUN, K, CO2, CL #### [facility] [address] [address] [address] Cesar Francis Cholesterol.total/Ch olesterol in HDL [Mass ratio] 3.7 {ratio} Normal [facility] Comment on above: Performed By: #### C KATYA, NA, CA, URIC, BUN, K, CO2, CL #### [facility] [address] [address] [address] Cesar Francis HDL NORMAL > or = 60 mg/dl - LO W CARDIOVASCULAR RISK <40 mg/dl - HIGH CARDIOVASCULAR RISK Normal [facility] Comment on above: Performed By: #### C KATYA, NA, CA, URIC, BUN, K, CO2, CL #### [facility] [address] [address] [address] Cesar Francis LDL CALC NORMAL SEE BELOW Normal [facility] Comment on above: Result Comment: <100 mg/dl OPTIMAL 100 - 129 mg/dl NEAR OR ABOVE OPTIMAL 130 - 159 mg/dl BORDERLINE HIGH 160 - 189 mg/dl HIGH >190 mg/dl VERY HIGH Performed By: #### C KATYA, NA, CA, URIC, BUN, K, CO2, CL #### [facility] [address] [address] [address] Cesar Francis Triglyceride [Mass/Vol] 95 mg/dL Normal <=150 [facility] Comment on above: Performed By: #### C KATYA, NA, CA, URIC, BUN, K, CO2, CL #### [facility] [address] [address] [address] Cesar Francis VLDL CALC 19.0 mg/dL Normal [facility] Comment on above: Performed By: #### C KATYA, NA, CA, URIC, BUN, K, CO2, CL #### [facility] [address] [address] [address] Cesar Francis PROF 14(COMP METB)on 022 Albumin [Mass/Vol] 3.6 g/dL Normal 3.4-5.0 [facility] Comment on above: Performed By: #### C KATYA, NA, CA, URIC, BUN, K, CO2, CL #### [facility] [address] [address] [address] Cesar Francis Albumin/Globulin [Mass ratio] 1.0 {ratio} Normal [facility] Comment on above: Performed By: #### C KATYA, NA, CA, URIC, BUN, K, CO2, CL #### [facility] [address] [address] [address] Cesar Francis ALP [Catalytic activity/Vol] 65 U/L Normal 46-116 [facility] Comment on above: Performed By: #### C KATYA, NA, CA, URIC, BUN, K, CO2, CL #### [facility] [address] [place] [address] Dr. Cesar Francis ALT [Catalytic activity/Vol] 31 U/L Normal 14-59 [facility] Comment on above: Performed By: #### C KATYA, NA, CA, URIC, BUN, K, CO2, CL #### [facility] [address] [place] [address] Dr. Cesar Francis Anion gap [Moles/Vol] 13.2 mmol/L Normal [facility] Comment on above: Performed By: #### C KATYA, NA, CA, URIC, BUN, K, CO2, CL #### [facility] [address] [place] [address] Dr. Cesar Francis AST [Catalytic activity/Vol] 21 U/L Normal 15-37 [facility] Comment on above: Performed By: #### C KATYA, NA, CA, URIC, BUN, K, CO2, CL #### [facility] [address] [place] [address] Dr. Cesar Francis Bilirubin [Mass/Vol] 0.5 mg/dL Normal 0.2-1.0 [facility] Comment on above: Performed By: #### C KATYA, NA, CA, URIC, BUN, K, CO2, CL #### [facility] [address] [place] [address] Dr. Cesar Francis Calcium [Mass/Vol] 9.0 mg/dL Normal 8.5-10.1 [facility] Comment on above: Performed By: #### C KATYA, NA, CA, URIC, BUN, K, CO2, CL #### [facility] [address] [place] [address] Dr. Cesar Francis Chloride [Moles/Vol] 101 mmol/L Normal 98-107 [facility] Comment on above: Performed By: #### C KATYA, NA, CA, URIC, BUN, K, CO2, CL #### [facility] [address] [place] [address] Dr. Cesar Francis CO2 [Moles/Vol] 29.5 mmol/L Normal 21.0-32.0 [facility] Comment on above: Performed By: #### C KATYA, NA, CA, URIC, BUN, K, CO2, CL #### [facility] [address] [address] [address] Cesar Francis Creatinine [Mass/Vol] 0.71 mg/dL Normal 0.55-1.02 [facility] Comment on above: Performed By: #### C KATYA, NA, CA, URIC, BUN, K, CO2, CL #### [facility] [address] [address] [address] Cesar Francis EGFR-AF COSTA RICAN >60 Normal >=60 [facility] Comment on above: Performed By: #### C KATYA, NA, CA, URIC, BUN, K, CO2, CL #### [facility] [address] [place] [address] Dr. Cesar Francis EGFR-NON AF COSTA RICAN >60 Normal >=60 [facility] Comment on above: Performed By: #### C KATYA, NA, CA, URIC, BUN, K, CO2, CL #### [facility] [address] [place] [address] Dr. Cesar Francis Globulin (S) [Mass/Vol] 3.5 g/dL Normal [facility] Comment on above: Performed By: #### C KATYA, NA, CA, URIC, BUN, K, CO2, CL #### [facility] [address] [address] [address] Cesar Francis Glucose [Mass/Vol] 102 mg/dL Normal 74-106 [facility] Comment on above: Performed By: #### C KATYA, NA, CA, URIC, BUN, K, CO2, CL #### [facility] [address] [place] [address] Dr. Cesar Francis Potassium [Moles/Vol] 3.7 mmol/L Normal 3.5-5.1 [facility] Comment on above: Performed By: #### C KATYA, NA, CA, URIC, BUN, K, CO2, CL #### [facility] [address] [address] [address] Cesar Francis Protein [Mass/Vol] 7.1 g/dL Normal 6.4-8.2 [facility] Comment on above: Performed By: #### C KATYA, NA, CA, URIC, BUN, K, CO2, CL #### [facility] [address] [address] [address] Cesar Francis Sodium [Moles/Vol] 140 mmol/L Normal 136-145 [facility] Comment on above: Performed By: #### C KATYA, NA, CA, URIC, BUN, K, CO2, CL #### [facility] [address] [address] [address] Cesar Francis Urea nitrogen [Mass/Vol] 28.0 mg/dL Critically high 7.0-18.0 [facility] Comment on above: Performed By: #### C KATYA, NA, CA, URIC, BUN, K, CO2, CL #### [facility] [address] [address] [address] Cesar Francis Urea nitrogen/Creatinine [Mass ratio] 39.4 mg/mg Normal [facility] Comment on above: Performed By: #### C KATYA, NA, CA, URIC, BUN, K, CO2, CL #### [facility] [address] [address] [address] Cesar Francis Screenson 12-08-2021 Screens [id number]:12 7 Normal [facility] Ambulatory Visit Summaryon 0 12-07-2021 Ambulatory Visit Summary PAM SNOW :1960 Visit Date:12/07/2021 Ambulatory Visit Instructions Your Diagnosis Kidney stone Tests Performed Urnls Dip Stick Auto w/o Microscopy POC 35355 XR Abdomen 1 View -- Results Pending [...] Follow-Up Appointments 2022 3:15 PM EDT With: Nahid KELLY, Rachelle Monroe Where: [facility] Patient Educationon 12-08-19 Patient Education Urology Kidney Stones Kidney stones [...] these instructions at home: Medicines ? Take uxaf-[id number]-ptfyvmt and prescription medicines only as told by [...] 08/13/2008 Document Revised: 07/14/2019 Document Reviewed: 07/14/2019 [employer] Patient Education ? 2019 [employer]. [facility] Urology Office/Clinic Noteon 12-07-2021 Urology Office/Clinic Note [...] When Contact Information Nahid KELLY, Rachelle Monroe, URLatesha, URO Additional Instructions: 6 mos KUB, JAYDA Patient Education Kidney Stones, Trwl-it-Ecdy IYolanda, personally scribed for Dr. Whitfield on [...] Cystoscopy (07/16/2011), Cysto (more content not included)... [facility] Comment on above: Result Comment: Elec tronically Signed By: Rachelle Whitfield MD\.br\Date and Time Signed: 12/07/21 16:44 EDT\.br\Electronically Co-Signed By: Yolanda Mauro.br\Date and Time Co-Signed: 12/07/21 15:46 EDT Lab Reportson 10-18-2021 Lab Reports [id number]:12 7 [facility] Lab Reportson 10-11-2021 Lab Reports [id number]:12 7 [facility] Lab Reports [id number]:12 7 Normal [facility] PTH INTACTon 10-10-2021 PTH, Intact 13 pg/mL Critically low 15-65 [facility] Comment on above: Performed By: #### C KATYA, NA, CA, URIC, BUN, K, CO2, CL #### [facility] [address] [place] [address] Dr. Cesar Francis BUNon 10-09-2021 Urea nitrogen [Mass/Vol] 11.0 mg/dL Normal 7.0-18.0 [facility] Comment on above: Performed By: #### C KATYA, NA, CA, URIC, BUN, K, CO2, CL #### [facility] [address] [place] [address] Dr. Cesar Francis CALCIUMon 10-09-2021 Calcium [Mass/Vol] 9.2 mg/dL Normal 8.5-10.1 [facility] Comment on above: Performed By: #### C KATYA, NA, CA, URIC, BUN, K, CO2, CL #### [facility] [address] [address] [address] Cesar Francis CHLORIDEon 10-09-2021 Chloride [Moles/Vol] 104 mmol/L Normal 98-107 [facility] Comment on above: Performed By: #### C KATYA, NA, CA, URIC, BUN, K, CO2, CL #### [facility] [address] [place] [address] Dr. Cesar Francis CO2on 10-09-2021 CO2 [Moles/Vol] 28.5 mmol/L Normal 21.0-32.0 [facility] Comment on above: Performed By: #### C KATYA, NA, CA, URIC, BUN, K, CO2, CL #### [facility] [address] [place] [address] Dr. Cesar Francis CREATININEon 10-09-2021 Creatinine [Mass/Vol] 0.83 mg/dL Normal 0.55-1.02 [facility] Comment on above: Performed By: #### C KATYA, NA, CA, URIC, BUN, K, CO2, CL #### [facility] [address] [address] [address] Cesar Francis EGFR-AF COSTA RICAN >60 Normal >=60 [facility] Comment on above: Performed By: #### C KATYA, NA, CA, URIC, BUN, K, CO2, CL #### [facility] [address] [address] [address] Cesar Francis EGFR-NON AF COSTA RICAN >60 Normal >=60 [facility] Comment on above: Performed By: #### C KATYA, NA, CA, URIC, BUN, K, CO2, CL #### [facility] [address] [place] [address] Dr. Cesar Francis NAon 10-09-2021 Sodium [Moles/Vol] 143 mmol/L Normal 136-145 [facility] Comment on above: Performed By: #### C KATYA, NA, CA, URIC, BUN, K, CO2, CL #### [facility] [address] [address] [address] Cesar Francis PHOSPHORUSon 10-09-2021 Phosphate [Mass/Vol] 2.7 mg/dL Normal 2.6-4.7 [facility] Comment on above: Performed By: #### C KATYA, NA, CA, URIC, BUN, K, CO2, CL #### [facility] [address] [address] [address] Cesar Francis URIC ACID SERUMon 10-09-2021 Urate [Mass/Vol] 5.8 mg/dL Normal 2.6-6.0 [facility] Comment on above: Performed By: #### C KATYA, NA, CA, URIC, BUN, K, CO2, CL #### [facility] [address] [place] [address] Dr. Cesar Francis PROTIMEon 05-04-2017 INR Coag RelTime (PPP) 1.04 {INR} Normal 0.00-1.20 [facility] Comment on above: Order Comment: CONSE RVATIONList patient's anticoagulants for PT: NONE SPECIFIED Result Comment: Troy mmended therapeutic range is an INR of 2.0-3.0 exceptfor prevention of recurrent acute ND and mechanicalprosthetic heart valve where an INR of 2.5-3.5 isrecommended. Performed By: #### L 300.32604 ####Test performed at: [address] [address] PT SEC 11.0 seconds Normal 9.7-11.5 [facility] Comment on above: Order Comment: CONSE RVATIONList patient's anticoagulants for PT: NONE SPECIFIED Performed By: #### L 300.99921 ####Test performed at: [address] [place] [address] CARDIAC CATHETERIZATIONon CARDIAC CATHETERIZATION PATIENT NAME: ANNELISE SNOW#: [id number]: ANNELISE SNOW#: [id number] PROCEDURE: 05/03/2017CARDIAC CATHHISTORY OF PRESENT ILLNESS: [...] was accessedwith a multipurpose needle and a 6-Syrian sheath inserted. Selective coronaryarteriography was performed using 6-Syrian JL4 and 6-Syrian JR4 catheters.Left ventriculography was performed using a 6-Syrian angled pigtail catheter.At the end of the [...] groove. The rest of the vessel doesSt. [facility] NAME: BEKA SNOW [facility] REC: [id number] [facility] ACCOUNT NUM: [id number]/BED: [facility] : [id number] [address] ATTENDING PHY: Candice Torres MDCARDIAC CATHETERIZATIONPATIENT NAME: QUE SNOWR#: [id number] contain any significant disease.LEFT VENTRICULOGRAM: The left ventricular injection reveals a normal size leftventricle with normal contractility and normal ejection fraction. There is noangiographic mitral regurgitation.FINAL DIAGNOSIS:1. CAD-luminal irregularities, left main trunk-patent stent in proximal LAD-60-70% mid point. Posterior descending imwmvdaita-87-16% mid rightcoronary artery.RECOMMENDATION: The circumflex stent will [...] at anappropriate time on the floor. MICHAEL MOREIRA/SEAN/[id number]: 05/03/2017 13:24:11 E/S: Candice Torres MD05/07/17 0850Signature on [facility]arian [facility] PATIENT NAME: BEKA SNOW [facility] REC: [id number] [facility] ACCOUNT NUM: [id number]/BED: [address] [address] : [id number] [address] ATTENDING PHY: Candice Torres MDCARDIAC CATHETERIZATION Normal [facility] CBC W/DIFFon 05-03-2017 BASO ABS 0.1 K/uL Normal 0.0-0.2 [facility] Comment on above: Order Comment: CONSE RVATION Performed By: #### L 200.50857 ####Test performed at: [address] [address] Basophils/100 WBC Auto (Bld) 1.8 % Normal [facility] Comment on above: Order Comment: CONSE RVATION Performed By: #### L 200.54447 ####Test performed at: [address] [address] EOS ABS 0.2 K/uL Normal 0.0-0.5 [facility] Comment on above: Order Comment: CONSE RVATION Performed By: #### L 200.36028 ####Test performed at: [address] [address] Eosinophils/100 leukocytes 2.6 % Normal [facility] Comment on above: Order Comment: CONSE RVATION Performed By: #### L 200.90920 ####Test performed at: [address] [address] Erythrocyte distribution width Auto Ratio (RBC) 13.7 % Normal 11.5-14.5 [facility] Comment on above: Order Comment: CONSE RVATION Performed By: #### L 200.44733 ####Test performed at: [address] [address] Erythrocytes (RBC) 5.06 10*6/uL Normal 3.5-5.5 [facility] Comment on above: Order Comment: CONSE RVATION Performed By: #### L 200.34078 ####Test performed at: [place] [id number] Erythrocytes (RBC) 0.000 10*6/uL Normal 0-0.012 [facility] Comment on above: Order Comment: CONSE RVATION Performed By: #### L 200.62476 ####Test performed at: [place] [address] Hematocrit (HCT) 42.6 % Normal 36.0-48.0 [facility] Comment on above: Order Comment: CONSE RVATION Performed By: #### L 200.74070 ####Test performed at: [place] [address] Hemoglobin mass conc (Bld) 14.1 g/dL Normal 12.0-15.0 [facility] Comment on above: Order Comment: CONSE RVATION Performed By: #### L 200.54605 ####Test performed at: [place] [address] IG % 0.3 % Normal [facility] Comment on above: Order Comment: CONSE RVATION Performed By: #### L 200.43691 ####Test performed at: [place] [id number] IG ABS 0.02 K/uL Normal 0-0.05 [facility] Comment on above: Order Comment: CONSE RVATION Performed By: #### L 200.24835 ####Test performed at: [place] [id number] Lymphocytes 1.5 10*3/uL Normal 1.2-3.5 [facility] Comment on above: Order Comment: CONSE RVATION Performed By: #### L 200.78319 ####Test performed at: [address] [address] Lymphocytes/100 leukocytes 20.2 % Normal [facility] Comment on above: Order Comment: CONSE RVATION Performed By: #### L 200.82015 ####Test performed at: [address] [address] MCH 27.9 pg Normal 25.4-34.6 [facility] Comment on above: Order Comment: CONSE RVATION Performed By: #### L 200.95096 ####Test performed at: [address] [address] MCHC mass conc (RBC) 33.1 g/dL Normal 31.5-36.5 [facility] Comment on above: Order Comment: CONSE RVATION Performed By: #### L 200.79774 ####Test performed at: [place] [id number] MCV 84.2 fL Normal 79.0-98.0 [facility] Comment on above: Order Comment: CONSE RVATION Performed By: #### L 200.20992 ####Test performed at: [address] [address] MONO ABS 0.7 K/uL Normal 0.0-1.0 [facility] Comment on above: Order Comment: CONSE RVATION Performed By: #### L 200.33847 ####Test performed at: [address] [address] Monocytes/100 leukocytes 9.4 % Normal [facility] Comment on above: Order Comment: CONSE RVATION Performed By: #### L 200.04507 ####Test performed at: [address] [address] Neutrophils 4.8 10*3/uL Normal 1.4-6.6 [facility] Comment on above: Order Comment: CONSE RVATION Performed By: #### L 200.14916 ####Test performed at: [address] [address] Neutrophils/100 WBC Auto (Bld) 65.7 % Normal [facility] Comment on above: Order Comment: CONSE RVATION Performed By: #### L 200.25480 ####Test performed at: [address] [address] NRBC % 0.0 /100 WBC Normal 0-0.2 [facility] Comment on above: Order Comment: CONSE RVATION Performed By: #### L 200.71375 ####Test performed at: [address] [address] Platelet mean volume (PMV) 11.9 fL Normal 8.7-12.4 [facility] Comment on above: Order Comment: CONSE RVATION Performed By: #### L 200.11176 ####Test performed at: [address] [address] Platelets 207 10*3/uL Normal 140-440 [facility] Comment on above: Order Comment: CONSE RVATION Performed By: #### L 200.16365 ####Test performed at: [address] [address] WBC (Leukocytes) 7.2 10*3/uL Normal 3.9-11.0 [facility] Comment on above: Order Comment: CONSE RVATION Performed By: #### L 200.22557 ####Test performed at: [address] [address] COMP META PANELon 05-03-2017 Alanine aminotransferase (ALT) 17 U/L Normal 13-61 [facility] Comment on above: Order Comment: CONSE RVATIONIs patient fasting? UNKNOWN Performed By: #### L 500.53522, L500.97671, L500.76077, L500.26890 ####Test performed at: [place] [address] Albumin 3.4 g/dL Normal 3.4-5.0 [facility] Comment on above: Order Comment: CONSE RVATIONIs patient fasting? UNKNOWN Performed By: #### L 500.83297, L500.30443, L500.83310, L500.78113 ####Test performed at: [place] [address] ALK PHOS TOTAL 96 U/L Normal 45-117 [facility] Comment on above: Order Comment: CONSE RVATIONIs patient fasting? UNKNOWN Performed By: #### L 500.07813, L500.40289, L500.92347, L500.58288 ####Test performed at: [place] [address] Aspartate aminotransferase (AST) 15 U/L Normal 15-37 [facility] Comment on above: Order Comment: CONSE RVATIONIs patient fasting? UNKNOWN Performed By: #### L 500.71970, L500.42193, L500.90493, L500.73652 ####Test performed at: [place] [id number] BILI TOTAL 0.7 mg/dL Normal 0.2-1.0 [facility] Comment on above: Order Comment: CONSE RVATIONIs patient fasting? UNKNOWN Performed By: #### L 500.09745, L500.59134, L500.45029, L500.18542 ####Test performed at: [place] [id number] Calcium 8.3 mg/dL Low 8.5-10.1 [facility] Comment on above: Order Comment: CONSE RVATIONIs patient fasting? UNKNOWN Performed By: #### L 500.87362, L500.33095, L500.17894, L500.17636 ####Test performed at: [place] [id number] Chloride 108 mmol/L High 98-107 [facility] Comment on above: Order Comment: CONSE RVATIONIs patient fasting? UNKNOWN Performed By: #### L 500.59641, L500.08244, L500.55202, L500.86716 ####Test performed at: [place] [id number] CO2 30 mmol/L Normal 21-32 [facility] Comment on above: Order Comment: CONSE RVATIONIs patient fasting? UNKNOWN Performed By: #### L 500.96050, L500.93829, L500.00699, L500.98046 ####Test performed at: [place] [id number] Creatinine 0.648 mg/dL Normal 0.550-1.020 [facility] Comment on above: Order Comment: CONSE RVATIONIs patient fasting? UNKNOWN Performed By: #### L 500.60185, L500.72721, L500.03531, L500.89267 ####Test performed at: [place] [id number] Glucose mass conc 94 mg/dL Normal 74-106 [facility] Comment on above: Order Comment: CONSE RVATIONIs patient fasting? UNKNOWN Performed By: #### L 500.75675, L500.73177, L500.77075, L500.32035 ####Test performed at: [address] [address] Potassium molar conc 4.2 mmol/L Normal 3.5-5.1 [facility] Comment on above: Order Comment: CONSE RVATIONIs patient fasting? UNKNOWN Performed By: #### L 500.90336, L500.60369, L500.24297, L500.70518 ####Test performed at: [place] [id number] Protein 6.4 g/dL Normal 6.4-8.2 [facility] Comment on above: Order Comment: CONSE RVATIONIs patient fasting? UNKNOWN Performed By: #### L 500.89532, L500.56363, L500.00330, L500.77184 ####Test performed at: [place] [address] Sodium 142 mmol/L Normal 136-145 [facility] Comment on above: Order Comment: CONSE RVATIONIs patient fasting? UNKNOWN Performed By: #### L 500.14675, L500.60875, L500.81881, L500.61080 ####Test performed at: [place] [id number] Urea nitrogen 10 mg/dL Normal 7-18 [facility] Comment on above: Order Comment: CONSE RVATIONIs patient fasting? UNKNOWN Performed By: #### L 500.10994, L500.19319, L500.42364, L500.73898 ####Test performed at: [place] [address] Cardiology Progress Noteon 0 05-03-2017 Cardiology Progress Note [facility] Pt Name: QUE SNOWA[address] MR#: [id number], [place] [address] ACCT: [id number] NOTE - Cardiology : 59Service Date: 05/04/17 1131NAME: ANNELISE SNOW#: [id number] OF SERVICE: 05/04/2017CARDIOLOGY PROGRESS NOTESUBJECTIVE: Mrs. Snow [...] me with jason 1 month. CANDICE TORRES, LATHAJS[place] [place][id number] 35D: 05/04/2017 11:31:37 eSign Date and TimeSteele,Candice Blanca MD Signature on File 05/04/17 1156 Normal [facility] EKGon 05-03-2017 EKG Acquired on 05/03/19 18 0957Vent. Rate : 055 BPM Atrial Rate : 055 BPMP-R Int : 188 ms QRS Dur : 080 msQT Int : 396 ms P-R-T Axes : 058 062 055 degreesQTc Int : 378 msSinus bradycardiaOtherwise normal ECGNo previous ECGs availableConfirmed by CANDICE TORRES MD ([id number]) on 05/04/2017 11:16:47 AMReferred By: Confirmed By:CANDICE TORRES [id number] 2017 [facility] PT NAME: ANNELISE SNOW#: [id number] [place] [address] ACCT: [id number]: 59EKG REPORT Normal [facility] EST. CREAT CLRon 05-03-2017 Creatinine 104.424 ML/MIN Normal [facility] Comment on above: Order Comment: CONSE RVATIONIs patient fasting? UNKNOWN Result Comment: This result is an ESTIMATED blood creatinine clearance valuewhich is derived from the patient age, sex, weight, andprevious blood creatinine result. Performed By: #### L 500.18549, L500.02345, L500.55038, L500.07544 ####Test performed at: [place] [address] GFR ESTIMATEon 05-03-2017 IF AMER > 60 Normal > 60 [facility] Comment on above: Order Comment: CONSE RVATIONIs patient fasting? UNKNOWN Result Comment: eGFR (Estimated GFR) Units of measure:mL/min/1.73 meters sq.*CALCULATION REVISED 12/28/2014;IDMS-traceable MDRD equationeGFR is derived from the reexpressed MDRD Study equationusing the following parameters: serum creatinine, age,gender and race. An eGFR<60 mL/min/1.73m2 for >3 monthsis consistent with chronic kidney disease. Refer to KDOQIguidelines for clinical interpretation. Performed By: #### L 500.04089, L500.74731, L500.96925, L500.95628 ####Test performed at: [place] [address] IF non-AFR AMER > 60 Normal > 60 [facility] Comment on above: Order Comment: CONSE RVATIONIs patient fasting? UNKNOWN Performed By: #### L 500.92115, L500.63101, L500.35469, L500.34138 ####Test performed at: [place] [address] LIPID PROFILEon 05-03-2017 Cholesterol 255 mg/dL High <200 [facility] Comment on above: Order Comment: CONSE RVATIONIs patient fasting? UNKNOWN Result Comment: <200 mg/dL (Desirable) 200-240 mg/dL (Borderline) >240 mg/dL (High Risk) Performed By: #### L 500.72130, L500.73795, L500.10168, L500.16908 ####Test performed at: [place] [id number] HDL Cholesterol 51 mg/dL Normal 40-60 [facility] Comment on above: Order Comment: CONSE RVATIONIs patient fasting? UNKNOWN Performed By: #### L 500.91270, L500.06146, L500.54832, L500.83471 ####Test performed at: [place] [id number] LDL Cholesterol 188 mg/dL High 60-130 [facility] Comment on above: Order Comment: CONSE RVATIONIs patient fasting? UNKNOWN Performed By: #### L 500.62500, L500.84061, L500.46711, L500.92086 ####Test performed at: [place] [address] Triglyceride 99 mg/dL Normal <150 [facility] Comment on above: Order Comment: CONSE RVATIONIs patient fasting? UNKNOWN Result Comment: <150 mg/dL (Normal) 150-199 mg/dL (Borderline) 200-499 mg/dL (High) >500 mg/dL (Very High) Performed By: #### L 500.49127, L500.11077, L500.52615, L500.79207 ####Test performed at: [place] [address] PROTIMEon 05-03-2017 INR Coag RelTime (PPP) 1.06 {INR} Normal 0.00-1.20 [facility] Comment on above: Order Comment: CONSE RVATIONList patient's anticoagulants for PT: HEPARIN Result Comment: [place] mmended therapeutic range is an INR of 2.0-3.0 exceptfor prevention of recurrent acute ND and mechanicalprosthetic heart valve where an INR of 2.5-3.5 isrecommended. Performed By: #### L 300.50770 ####Test performed at: [place] [address] PT SEC 11.2 seconds Normal 9.7-11.5 [facility] Comment on above: Order Comment: CONSE RVATIONList patient's anticoagulants for PT: HEPARIN Performed By: #### L 300.53366 ####Test performed at: [address] [address] Vital Signs Date Time Vital Sign Value Performing Clinician Arti cotton 08-15-2023 09:13-0400 Body height 165.1 cm [facility] 08-15-2023 09:13-0400 Body mass index (BMI) [Ratio] 26.6 kg/m2 [facility] 08-15-2023 09:13-0400 Body weight 72.74 kg [facility] 08-15-2023 09:13-0400 Diastolic blood pressure 69 mm[Hg] [facility] 08-15-2023 09:13-0400 Heart rate 60 /min [facility] 08-15-2023 09:13-0400 Respiratory rate 12 /min [facility] 08-15-2023 09:13-0400 Systolic blood pressure 118 mm[Hg] [facility] 06-05-2023 08:38-0400 Body height 165.1 cm [facility] 06-05-2023 08:38-0400 Body mass index (BMI) [Ratio] 26.8 kg/m2 [facility] 06-05-2023 08:38-0400 Body weight 73.02 kg [facility] 06-05-2023 08:38-0400 Diastolic blood pressure 76 mm[Hg] [facility] 06-05-2023 08:38-0400 Heart rate 73 /min [facility] 06-05-2023 08:38-0400 Respiratory rate 12 /min [facility] 06-05-2023 08:38-0400 Systolic blood pressure 124 mm[Hg] [facility] 06-19-2021 14:55-0400 Blood Pressure Location Rachelle Whitfield [facility] 04-11-2022 14:55-0400 Diastolic blood pressure 78 mm[Hg] Rachelle Lue [facility] 06-19-2021 14:55-0400 Heart rate 78 /min Rachelle Lue [facility] 06-19-2021 14:55-0400 Respiratory rate 16 /min Rachelle Lue [facility] 06-19-2021 14:55-0400 Systolic blood pressure 115 mm[Hg] Rachelle Lue [facility] Encounters Encounter Date Encounter Type Care Provider Facility Start: 09-30-2023 End: 09-30-2023 ambulatory RUFINO B APLING Not Available Start: 09-09-2023 End: 09-09-2023 ambulatory DALE KATIE Not Available Start: 09-04-2023 End: 09-04-2023 ambulatory RUFINO B APLING Not Available Start: 08-28-2023 End: 08-28-2023 Evaluation and management of inpatient BACILIO Pratt [facility] Start: 08-28-2023 End: 08-28-2023 Evaluation and management of inpatient LORRAINE Pratt [facility] Start: 08-15-2023 End: 08-15-2023 ambulatory [facility] Work Phone: Start: 08-15-2023 End: 08-15-2023 Patient encounter procedure [facility] Physician [facility] Work Phone: Start: 08-07-2023 End: 08-07-2023 ambulatory [facility] Start: 08-07-2023 End: 08-07-2023 Encounter for preprocedural cardiovascular examination [facility] Start: 08-01-2023 Encounter for other preprocedural examination LORRAINE [facility] Start: 08-01-2023 End: 08-01-2023 ambulatory LORRAINE Pratt JOSEPHINE [facility] Start: 07-30-2023 End: 07-30-2023 ambulatory LORRAINE Pratt JOSEPHINE Not Available Start: 07-22-2023 End: 07-22-2023 ambulatory LORRAINE Pratt JOSEPHINE Not Available Start: 07-16-2023 End: 07-16-2023 ambulatory LORRAINE RAYA Not Available Start: 06-05-2023 End: 06-05-2023 ambulatory [facility] Work Phone: Start: 06-05-2023 End: 06-05-2023 Encounter for general adult medical examination without abnormal findings [facility] Start: 06-05-2023 End: 06-05-2023 Patient encounter procedure [facility] Physician [facility] Work Phone: Start: 05-31-2023 Non-patient / Non-visit [facility] Physician [facility] Work Phone: Start: 05-08-2023 Non-patient / Non-visit [facility] Physician [facility] Work Phone: Start: 05-08-2023 Non-patient / Non-visit [facility] Physician [facility] Work Phone: Start: 05-07-2023 End: 05-07-2023 ambulatory ABI GIBBS Not Available Start: 04-30-2023 End: 04-30-2023 ambulatory LORRAINE Terence JOSEPHINE Not Available Start: 04-09-2023 End: 04-09-2023 ambulatory LORRAINE Terence JOSEPHINE Not Available Start: 04-01-2023 End: 04-01-2023 ambulatory ABI GIBBS Not Available Start: 03-26-2023 Patient encounter procedure [facility]- Start: 03-18-2023 End: 03-18-2023 ambulatory ABI GIBBS Not Available Start: 01-30-2023 End: 01-30-2023 ambulatory [facility] Start: 11-02-2022 End: 11-02-2022 ambulatory KELLIE [facility] Start: 08-20-2022 ambulatory Rachellederrell Herberte Facility:[facility] Start: 06-30-2022 End: 07-01-[address] HAIR DIETZ Facility:[facility] Start: 06-21-2022 End: 06-22-[address] HAIR DIETZ Facility:[facility] Start: 06-20-2022 ambulatory BRANDT MCNAMARA Facili ty:[facility] Start: 06-09-2022 ambulatory BRANDT MCNAMARA Facili ty:[facility] Start: 05-31-2022 End: 06-01-2022 ambulatory BRANDT MCNAMARA Facility:[facility] Start: 05-22-2022 End: 05-23-2022 ambulatory RACHELLE WHITFEILD . Facility:[facility] Start: 05-18-2022 End: 05-19-2022 ambulatory RACHELLE WHITFIELD . Facility:[facility] Start: 04-17-2022 End: 04-18-[address] SON IRIZARRY Facility:[facility] Start: 02-15-2022 Encounter for genera l adult medical examination without abnormal findings DR SON IRIZARRY [facility] Start: 02-09-2022 End: 02-10-[address] SON IRIZARRY Facility:[facility] Start: 02-09-2022 End: 02-10-2022 Encounter for general adult medical examination without abnormal findings DR SON IRIZARRY Facility:[facility] Start: 12-07-2021 End: 12-08-2021 ambulatory Rachelle Reyes. Nahid Facility:[facility] Start: 12-07-2021 End: 12-07-2021 Patient encounter procedure Rachelle M. Lue [facility] Start: 10-09-2021 End: 10-10-2021 ambulatory RACHELLE M LUE . Facility:[facility] Start: 06-19-2021 End: 06-19-2021 Patient encounter procedure Rachelle M. Lue [facility] Start: 05-03-2017 End: 05-04-2017 Evaluation and management of inpatient Family Physician Unavailable Facility:[facility] Procedures Date Procedure Procedure Detail Performing Clinician [...] wave lithotripsy of calculus of kidney Rachelle Herberte Comment on above: Lt Hysterectomy Rachelle Lue Hysterectomy Rachelle Lue kidney surgery Rachelle Herberte Placement of stent i n cardiac conduit Rachelle Whitfield Comment on above: x2 stents Rachelle Whitfield Plan of Treatment Date Care Activity Detail Author Start: 06-05-2023 Patient referral [facility] Work Phone: Patient referral [facility] Work Phone: Immunizations Immunization Date Immunization Notes Care Provider Rossi bourgeois NEGATED: Highlighted row has not occurred!03-18-2019 influenza virus vaccine, live, attenuated, for intranasal use Rachelle Whitfield [facility] Payers Date Payer Category Payer Private Health Insurance [id number] Self-pay [id number] 1960 Unknown [id number] 1960 Unknown [id number] 2.16.84 0.1.380879.3.579.2.593 1959 Unknown [id number] 2.16.84 0.1.223844.3.579.2.593 1959 Unknown [id number] 2.16.84 0.1.679174.3.579.2.593 1959 Unknown [id number] 2.16.84 0.1.303811.3.579.2.593 1959 Unknown [id number] 2.16.84 0.1.431768.3.579.2.593 1959 Unknown [id number] 2.16.84 0.1.901541.3.579.2.593 1959 Unknown [id number] 2.16.84 0.1.768677.3.579.2.593 1959 Unknown [id number] 2.16.84 0.1.641534.3.579.2.593 1959 Unknown [id number] 2.16.84 0.1.868899.3.579.2.593 1959 Unknown [id number] 2.16.84 0.1.734033.3.579.2.593 1959 Unknown [id number] 2.16.84 0.1.799006.3.579.2.593 1959 Unknown [id number] 2.16.8 40.1.740471.3.579.2.727 1959 Unknown [id number] 2.16.8 40.1.805480.3.579.2.727 1959 Unknown [id number] 2.16.8 40.1.682105.3.579.2.1286 1959 Unknown [id number] 2.16.8 40.1.426862.3.579.2.1286 1959 Unknown [id number] 2.16.8 40.1.949140.3.579.2.1286 1959 Unknown [id number] 2.16.8 40.1.868242.3.579.2.1286 1959 Unknown [id number] 2.16.8 40.1.887933.3.579.2.1286 1959 Unknown [id number] 2.16.8 40.1.386765.3.579.2.1286 1959 Unknown [id number] 2.16.84 0.1.335156.3.579.2.1259 1959 Unknown [id number] 2.16.84 0.1.977674.3.579.2.1259 1959 Unknown [id number] 2.16.84 0.1.970365.3.579.2.1259 1959 Unknown [id number] 2.16.84 0.1.811643.3.579.2.9 1959 Unknown [id number] 2.16.84 0.1.488205.3.579.2.1259 1959 Unknown [id number] 2.16.84 0.1.479158.3.579.2.1259 1959 Unknown [id number] 2.16.84 0.1.318155.3.579.2.9 1959 Unknown [id number] 2.16.84 0.1.046289.3.579.2.1259 1959 Unknown [id number] 2.16.84 0.1.816573.3.579.2.1259 1959 Unknown [id number] 2.16.84 0.1.460896.3.579.2.1259 1959 Unknown [id number] 2.16.84 0.1.636921.3.579.2.1259 1959 Unknown [id number] 2.16.84 0.1.770688.3.579.2.1259 1959 Unknown [id number] 2.16.840 .1.997627.3.579.2.1259 Self-pay Self Pay [id number] Social History Date Type Detail Facility Start: 02-05-2017 End: 06-19-2021 Tobacco smoking status Ex-smoker (finding) [facility] Sex Assigned At Female [facility] Start: 1960 Sex Assigned At Female [facility] Functional Status Date Assessment Result Facility 12-07-2021 Functional Status N/A [facility] Clinical Notes 06-19-2021 to 08-07-2023 Note Date & Type Note Facility 08-07-2023 Note [facility] Subjective Pam Snow is a 63 y.o. year old female patient being seen for CAD, statin intolerance, and stable angina. She needs cleared for shoulder surgery, scheduled 08/[address] Raya. She had EKG last week at [facility]. 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 Her last cardiac catheterization in 2018 showed nonobstructive coronary disease. A treadmill stress [...] Judgment: Judgment normal. Allergies Allergies Allergen Reactions Hjsblpp-Gko-Bnc Reductase Inhibitors Unknown Medications Current Outpatient Medications: aspirin 81 mg EC tablet, Take 81 mg by mouth in the morning., Disp: , Rfl: buPROPion XL (Wellbutrin XL) 300 mg 24 hr tablet, , Disp: , Rfl: cyanocobalamin (Vitamin B-12) 1,000 mcg/mL injection, , Disp: , Rfl: ywjgsgnuflu-kftefhhcu-mqahzrtw (Trelegy Ellipta) 100-62.5-25 mcg blister with device, 1 puff 1 (one) time each day at the same time., Disp: , Rfl: hydroCHLOROthiazide (HYDRODiuril) 25 mg ta (more content not included)... [facility] 01-30-2023 Note Currently treated wi th praluent injection [facility] 01-30-2023 Note Coronary artery dise ase is stable Continue GDMT- ASA, praluent continue risk factor modifications- heart healthy diet, regular exercise as tolerated and continue all medications. [facility] 01-30-2023 Note Hypertension is curr ently well controlled 116/76 Continue all medications- hydrochlorothiazide [facility] 01-30-2023 Note Lipid abnormalities are stable with praluent use r/t her being intolerant of statins and zetia. She is to send most recent lipid level [facility] 01-30-2023 Note Denied any angina since last vis it [facility] 01-30-2023 Note Patient here for 3 m o follow up CAD, hypertension, and hyperlipidemia. Denies chest pain, SOB, lightheadedness, and palpitations. Review of Systems Respiratory: Positive for cough. All other systems reviewed and are negative. [facility] 01-30-2023 Note [facility] CARDIOLOGY PROGR ESS NOTE [...] She did see Dr. Nicholson and an customer loyalty representative recently. Hasn't smoked since 2008. She was unable to tolerate Zetia and pravastatin that Dr. Mcnamara started her on in May 2022. Previous HPI-- Currently she is very concerned about her family h/o CAD/CHF/and valvular disease. States her brother passed 2 years ago s/p ND- but admits that he was 100pounds overweight, [...] Former BSA 1.8 m??? Allergies Allergen Reactions Seyjezc-Tlt-Xsz Reductase Inhibitors Unknown Medications: Current Outpatient Medications on File Prior to Visit Medication Sig Dispense Refill aspirin 81 mg EC tablet Take 81 mg by mouth in the morning. buPROPion XL (Wellbutrin XL) 300 mg 24 hr tablet cyanocobalamin (Vitamin B-12) 1,000 mcg/mL injection isszxmpdflz-pmkyjyldm-uoqhncpe (Trelegy Ellipta) 100-62.5-25 mcg blister with device [...] recent lipid profile from her recent employer eval Addendum- 16:00 pm 11/22/22- Chol 238, Trig, [...] likelihood of becoming CA Assessment/Plan: Stable angina (CMS/HCC) Denied any angina since last visit Pure hypercholesterolemia Lipid abnormalities are stable with praluent use r/t her being intolerant of statins and zetia. 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 [facility] 11-02-2022 Note Telephone visit for 3 mo follow up lipid panel. Praluent was doubled at last visit in July 2022. Review of Systems Cardiovascular: Positive for dyspnea on exertion. Respiratory: Positive for cough. All other systems reviewed and are negative. [facility] 11-02-2022 Note Date of phone call: 11/02/2022 Total time spent in Medical Discussion: 30 minutes. Total 30 minutes The visit was initiated by the patient and conducted [id number] with use of audio-only real time telephone communication between patient and provider for a virtual visit. Verbal consent to provide and bill for this service was obtained on 11/02/2022. [facility] CARDIOLOGY PROGRESS NOTE Pam Snow is a [...] Vitals Smoking Status Former Allergies Allergen Reactions Kjgupfo-Dnj-Dru Reductase Inhibitors Unknown Medications: Current Outpatient Medications on File Prior to Visit Medication Sig Dispense Refill aspirin 81 mg EC tablet Take 81 mg by mouth in the morning. 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 [address] 11-02-2022 Note Lipid abnormalities remain elevated with increased dose of praulent 150 mg subcutaneous States that she is returning to regular exercise and vegan diet. Will D/W Dr Mcnamara-interventionalist about how to proceed [facility] 11-02-2022 Note Coronary artery dise ase is stable without any concerning or limiting symptoms. Continue ASA, praluent Continue GDMT continue risk factor modifications- heart healthy diet, regular exercise as tolerated and continue all medications. [facility] 12-07-2021 Hospital Discharge instructions Patient Education 12/07/2021 15:35:55 Kidney Stones, Yvmb-so-Lesf Kidney Stones Kidney stones are rock-like masses [...] Follow these instructions at home: Medicines Take bebh-rvy-[id number] and prescription medicines only as told by [...] 08/13/2008 Document Revised: 07/14/2019 Document Reviewed: 07/14/2019 [employer] Patient Education 2020 [employer]. Follow Up Care 06/19/2021 15:23:52 With:Nahid KELLY, WILLOW Little, URO Address: When: Unknown [facility] 06-19-2021 Hospital Discharge instructions Patient Education [...] include: ?Spinach. ?Rhubarb. ?Beets. ?Potato chips and [place] fries. ?Nuts. If you regularly take a diuretic medicine, make sure to eat at least 1 2 fruits or vegetables high in potassium each day. These include: ?Avocado. ?Banana. ?[place], prune, carrot, or tomato juice. ?Baked potato. [...] Casseroles. Pizza. Lasagna. Frozen meals. Potato chips. Syrian fries. Summary You can reduce your risk [...] 06/22/2011 Document Revised: 06/17/2019 Document Reviewed: 02/05/2017 [employer] Patient Education 2020 [employer]. Follow Up Care 05/15/2021 15:10:22 With:Nahid KELLY, Rachelle Monroe, CHRISTIANL, URO Address: Vahe Gaitan[address] [address]- When:09/18/2021 Comments:w/24hr urine [facility] Evaluation + Plan note Future Appointments Appointment Date:10/02/2021 03:15:00 PM Scheduled Provider:Rachelle Whitfield MD Location:[facility] Appointment Type:URO Office Visit [facility] Evaluation + Plan note Future Appointments Appointment Date:06/07/2022 03:15:00 PM Scheduled Provider:Rachelle Whitfield MD Location:[facility] Appointment Type:URO Office Visit [facility] Evaluation note Diagnosis Onset Date ASHD (arteriosclerotic heart disease) acute Chronic bronchitis, simple a cute Elevated cholesterol acute GERD (gastroesophageal reflux disease) acute Hypertension acute Screening for colon cancer n oneactive Screening mammogram for breast cancer noneactive Wellness examination noneact yudelka [facility] Work Phone: Evaluation note* Diagnosis Onset Date [...] acute Preop exam for internal medicine noneactive [facility] Work Phone: Hospital course Narrative No data available for this section [facility] Progress note No data available for this section [facility] Summary Purpose Family History No Family [...] Wellness examination Chief Complaint Wellness pre op [facility] Reason for Visit ASHD (arteriosclerot ic heart disease) Chronic bronchitis, simple Elevated cholesterol GERD (gastroesophageal reflux disease) Hypertension Screening for colon cancer Screening mammogram for breast cancer Wellness examination ASHD (arteriosclerotic heart disease) Chronic bronchitis, simple Elevated cholesterol Hypertension Preop exam for internal medicine Additional Source Comments INFORMATION SOURCE (unrecogn ized section and content) DATE CREATED AUTHOR 08/30/2017 [facility] DATE CREATED AUTHOR AUTHOR'S ORGANIZ ATION 07/07/2022 Johnnie Bingham [facility] DATE CREATED AUTHOR AUTHOR'S ORGANIZ ATION 09/26/2022 [facility] DATE CREATED AUTHOR AUTHOR'S ORGANIZ ATION 08/08/2023 [facility] DATE CREATED AUTHOR AUTHOR'S ORGANIZ ATION 08/29/2023 [facility] DATE CREATED AUTHOR AUTHOR'S ORGANIZ ATION 10/02/2023 [facility] EPIC Care Team (unrecognized sect ion and content) Team Status: Active Member Role Status Dates Son Irizarry DO Primary Care Provider Active Team Status: Active [...] Inactive Member Role Status Dates Son Irizarry DO [...] BE BASED ON THE PRIMARY CLINICAL RECORDS. [facility] LIA [facility]. provides no warranty or guarantee of the accuracy or completeness of information in this document.
--- NOTE | 2023-10-14 | XR_ITS ---
[address] [address] Patient Name: SVETLANA BURNETT MRN: [id number] date: 1960 Sex: F Assigned Patient Location: [facility] Current Patient Location: Accession/Order Number: [id number] Exam Date: 10/14/2023 09:30 Report Date: 10/15/2023 06:54 At the request of: DALE WILSON Procedure: XR DEXA axial skeleton EXAMINATION: XR DEXA axial skeleton HISTORY: Screening COMPARISON: DEXA bone densitometry 05/05/2021 TECHNIQUE: Dual-energy X-ray absorptiometry (DXA) was performed. FINDINGS: SPINE ANALYSIS: Average bone mineral density is 1.316 g/cm2. T-score (standard deviation relative to young adult mean): 1.1 . +21.0% change since prior study. HIP ANALYSIS: Lowest bone mineral density is within the left femoral neck, 0.769 g/cm2. T-score (standard deviation relative to young adult mean): -1.9 . +3.3% change since prior study. XR/XR DEXA axial skeleton IMPRESSION: World Health Organization Classification: Osteopenia - Moderate Fracture Risk FRAX: Cannot be calculated. Pharmacologic treatment recommendations * No uniform recommendation applies to all patients. Management plans must be individualized. * Consider initiating pharmacologic treatment in postmenopausal women and men >= 50 years of age who have the following: Primary fracture prevention: * T-score <= - 2.5 at the femoral neck, total hip, lumbar spine, 33% radius (some uncertainty with existing data) by DXA. * Low bone mass (osteopenia: T-score between - 1.0 and - 2.5) at the femoral neck or total hip by DXA with a 10-year hip fracture risk >= 3% or a 10-year major osteoporosis-related fracture risk >= 20% (i.e., clinical vertebral, hip, forearm, or proximal humerus) based on the [place]-adapted FRAXregistered model. Secondary fracture prevention: * Fracture of the hip or vertebra regardless of BMD [4, 5]. * Fracture of proximal humerus, pelvis, or distal forearm in persons with low bone mass (osteopenia: T-score between - 1.0 and - 2.5). The decision to treat should be individualized in persons with a fracture of the proximal humerus, pelvis, or distal forearm who do not have osteopenia or low BMD [12, 13]. Sang MS, Alejandro SL, Sergey KL, Parmjit EM, Sami KG, AJ, Amber ES. The clinician's guide to prevention and treatment of osteoporosis. Osteoporos Int. 2021;33(10):5766-3740. doi: 10.1007/t88238-539-17585-n. Epub 2021Jul 06. Erratum in: Osteoporos Int. 2021Oct 05;: PMID: [id number]; PMCID: [id number]. Electronically authenticated by: LIZET MALCOLM Date: 10/15/2023 06:54
--- NOTE | 2023-10-14 | MM_ITS ---
Patient Name: SVETLANA BURNETT MR#: [id number] : 1960 Exam Date: 10/14/2023 Ordering Doctor: DR Christopher Olivia . RADIOLOGY REPORT PROCEDURE: MM TOMOSYNTHESIS SCREENING BI COMPARISON: MG MAMM SCREEN 3D ISAIAH CAD, 05/18/2022. MG MAMM DIAGNOSTIC 3D ISAIAH CAD, 05/05/2021. MG MAMM ISAIAH SCRN W CAD DIG, 11/20/2012. INDICATIONS: Screening Calculator Name NCI Breast Cancer Risk Assessment Tool 5 Year Breast Cancer Risk 1.30% Lifetime Breast Cancer Risk 5.10% Personal Breast Cancer No Personal Ovarian Cancer Yes, Ovarian 1981 Treatments Hysterectomy, oophrectomy Family Cancers Father with lung cancer at age 55. LOCATION: [facility] BREAST COMPOSITION: The breasts are almost entirely fatty. FINDINGS: DIAGNOSTIC CATEGORY 1--NEGATIVE. RIGHT BREAST: No significant suspicious finding. No significant change has occurred. LEFT BREAST: No significant suspicious finding. No significant change has occurred. RECOMMENDATIONS: ROUTINE MAMMOGRAM AND CLINICAL EVALUATION IN 12 MONTHS. PLEASE NOTE: A NORMAL MAMMOGRAM DOES NOT EXCLUDE THE POSSIBILITY OF BREAST CANCER. A CLINICALLY SUSPICIOUS PALPABLE LUMP SHOULD BE BIOPSIED. Dictated by: Simon Yusuf M.D. on 10/15/2023 at 12:35 Approved by: Simon Yusuf M.D. on 10/15/2023 at 13:10
--- OUTSIDE RECORDS SUMMARY | 2023-10-14 09:34 | XMS_ITS | CCD ---
Author Organization [facility] Care Team Providers Care Fox Farmer Name Role Phone Unavailable, Family Physician Unavailable Un available Unavailable, Family Physician Unavailable Un available Candice Torres Unavailable Unavailable Candice Torres Unavailable Unavailable SON IRIZARRY Primary Care Physician [phone] LUE .RACHELLE Consulting Unavailable LUE ., RACHELLE [...] allergy Unknown (qualifier value) [facility] (4 sources) black walnut pollen extract; Translations: [[id number] REDUCTASE INHIBITORS] Drug Allergy 4 [facility] Repository Medications Current Medications Medication Drug Class(es) Dates Sig (Normalized) Sig (Original) [id number] 200 actuat albuterol 0.09 mg/actuat metered dose [...] PO Twice daily June 04, 2023 12:00am Gzfwocgbgsy-Xgvbnnbth-Zc lanter (2 sources) Anticholinergi c, Corticosteroid , beta2-Adrenerg ic Agonist Start: 06-04-2023 Dbrhkzehcyh-Talfbkrvj-A ilanter (Trelegy Ellipta) 100-62.5-25 mcg blister with [...] BID, # 180 tab(s), Refills(s) 3, Pharmacy: [facility], 162, cm, 03/16/20 [...] disease (15 sources) Atherosclerotic heart disease of citizen [place] coronary artery without angina pectoris; Translations: [Coronary [...] Range Facility Office Visiton 08-07-2023 Follow-up visit [id number] Kell Snow 1960 F Date Provider Department Center 08/07/2023 BRANDT BENJAMIN [facility] Family History Problem Relation Age of Onset Other Mother Coronary artery disease Sister Peripheral vascular disease Sister Coronary artery disease Brother Heart failure Brother Atrial fibrillation Brother Family Status - Relation Status Age at Mother Sister Brother Level of Service:46320 [place] OFFICE/OUTPATIENT ESTABLISHED MOD MDM 30 MIN Normal [facility] MR SHOULDER LEFT WO IV CONTR Darío [...] Basophils (Bld) [#/Vol] 0.1 10 3/uL 0.0-0.1 [facility] Basophils/100 WBC Auto (Bld) on 05-31-2023 Basophils/100 WBC (Bld) 2.1 % 0.2-2.0 [facility] Cholesterol in LDL Calc [Mas s/Vol]on 05-31-2023 Cholesterol in LDL [Mass/Vol] 204.0 mg/dL [facility] Comment on above: <100 mg/dl [id number] 0-129 mg/dl NEAR OR ABOVE [id number] mg/dl BORDERLINE [id number] mg/dl HIGH>190 mg/dl VERY HIGH Cholesterol in VLDL Calc [Ma ss/Vol]on 05-31-2023 Cholesterol in VLDL [Mass/Vol] 13.2 mg/dL [facility] Eosinophils/100 WBC Auto (Bl d)on 05-31-2023 Eosinophils/100 WBC (Bld) 5.2 % 0.9-7.0 [facility] Erythrocyte distribution wid th Auto (RBC) [Ratio]on 05-31-2023 Erythrocyte distribution width (RBC) [Ratio] 12.9 % 11.0-15.0 [facility] Estimated glomerular filtrat ion rate (GFR) non- Americanon 05-31-2023 GFR/1.73 sq M.predicted among non-blacks MDRD (S/P/Bld) [Vol rate/Area] mL/min/{1.73_m2} >=60 [facility] Globulin Calc (S) [Mass/Vol] on 05-31-2023 Globulin (S) [Mass/Vol] 3.6 g/dL [facility] Hematocrit Auto (Bld) [Volum e fraction]on 05-31-2023 Hematocrit (Bld) [Volume fraction] 44.0 % 36.0-48.0 [facility] Hemoglobin [Mass/volume] in Bloodon 05-31-2023 Hemoglobin (Bld) [Mass/Vol] 14.4 g/dL 12.0-16.0 [facility] Laboratory - Chemistry and C hemistry - challengeon 05-31-2023 Albumin [Mass/Vol] 3.4 g/dL 3.4-5.0 [facility] ALP [Catalytic activity/Vol] 78 U/L 46-116 [facility] ALT [Catalytic activity/Vol] 51 U/L 14-59 [facility] AST [Catalytic activity/Vol] 28 U/L 15-37 [facility] Bilirubin [Mass/Vol] 0.5 mg/dL 0.2-1.0 [facility] Calcium [Mass/Vol] 9.1 mg/dL 8.5-10.1 [facility] Chloride [Moles/Vol] 102 mmol/L 98-107 [facility] Cholesterol [Mass/Vol] 277 mg/dL <=200 [facility] Cholesterol in HDL [Mass/Vol] 60 mg/dL 40-60 [facility] Comment on above: > or =60 mg/dl - LOW CARDIOVASCULAR RISK<40 mg/dl - HIGH CARDIOVASCULAR RISK CO2 [Moles/Vol] 29.1 mmol/L 21.0-32.0 [facility] Creatinine [Mass/Vol] 0.76 mg/dL 0.55-1.02 [facility] GFR/1.73 sq M.predicted MDRD (S/P/Bld) [Vol rate/Area] mL/min/{1.73_m2} >=60 [facility] Glucose [Mass/Vol] 102 mg/dL 74-106 [facility] Potassium [Moles/Vol] 3.8 mmol/L 3.5-5.1 [facility] Protein [Mass/Vol] 7.0 g/dL 6.4-8.2 [facility] Sodium [Moles/Vol] 141 mmol/L 136-145 [facility] Triglyceride [Mass/Vol] 66 mg/dL <=150 [facility] Urea nitrogen [Mass/Vol] 21.0 mg/dL 7.0-18.0 [facility] Urea nitrogen/Creatinine [Mass ratio] 27.6 mg/mg [facility] Laboratory - Hematology and Cell countson 05-31-2023 Immature granulocytes/100 WBC (Bld) 0.2 % 0.0-0.5 [facility] Leukocytes [#/volume] correc johanna for nucleated erythrocytes in Blood by Automated counon 05-31-2023 WBC corrected for nucl RBC Auto (Bld) [#/Vol] 5.6 10 3/uL 4.0-11.0 [facility] Lymphocytes Auto (Bld) [#/Vo l]on 05-31-2023 Lymphocytes (Bld) [#/Vol] 1.7 10 3/uL 1.2-3.8 [facility] Lymphocytes/100 WBC Auto (Bl d)on 05-31-2023 Lymphocytes/100 WBC (Bld) 31.0 % 20.5-60.0 [facility] MCH Auto (RBC) [Entitic mass ]on 05-31-2023 MCH (RBC) [Entitic mass] 28.8 pg 26.7-34.0 [facility] MCHC Auto (RBC) [Mass/Vol]on 05-31-2023 MCHC (RBC) [Mass/Vol] 32.7 g/dL 29.9-35.2 [facility] MCV Auto (RBC) [Entitic vol] on 05-31-2023 MCV (RBC) [Entitic vol] 88.0 fL 81.0-99.0 [facility] Monocytes Auto (Bld) [#/Vol] on 05-31-2023 Monocytes (Bld) [#/Vol] 0.8 10 3/uL 0.3-0.8 [facility] Monocytes/100 WBC Auto (Bld) on 05-31-2023 Monocytes/100 WBC (Bld) 13.4 % 1.7-12.0 [facility] Neutrophils Auto (Bld) [#/Vo l]on 05-31-2023 Neutrophils (Bld) [#/Vol] 2.7 10 3/uL 1.4-6.5 [facility] Neutrophils/100 WBC Auto (Bl d)on 05-31-2023 Neutrophils/100 WBC (Bld) 48.1 % 43.0-75.0 [facility] No Panel Informationon 05-30 Eosinophils # (Auto) 0.3 10 3/uL 0.0-0.7 [facility] Immature Granulocyte # (Auto) 0.01 10 3/uL 0.00-0.03 [facility] Platelet mean volume Auto (B ld) [Entitic vol]on 05-31-2023 Platelet mean volume (Bld) [Entitic vol] 10.7 fL 9.5-13.5 [facility] Platelets Auto (Bld) [#/Vol] on 05-31-2023 Platelets (Bld) [#/Vol] 305 10 3/uL 150-450 [facility] RBC Auto (Bld) [#/Vol]on RBC (Bld) [#/Vol] 5.00 10 6/uL 4.20-5.40 [facility] Serum or plasma albumin/glob ulin mass ratioon 05-31-2023 Albumin/Globulin [Mass ratio] 0.9 {ratio} [facility] Serum or plasma anion gap de terminationon 05-31-2023 Anion gap [Moles/Vol] 13.7 mmol/L [facility] Serum or plasma total choles terol/high density lipoprotein (HDL) cholesterol mass robyn 05-31-2023 Cholesterol.total/Ch olesterol in HDL [Mass ratio] 4.6 {ratio} [facility] Comment on above: 3.3 - 4.4 LOW RISK4. 4 - 7.1 AVERAGE RISK7.1 - 11.0 MODERATE RISK>11.0 HIGH RISK Office Visiton 01-30-2023 Follow-up visit [id number] Kell Snow enrrique Azevedo 1960 Date Provider Department Center 01/30/2023 KELLIE RIVERA [facility] Family History Problem Relation Age of Onset Other Mother Coronary artery disease Sister Peripheral vascular disease Sister Coronary artery disease Brother Heart failure Brother Atrial fibrillation Brother Family Status - Relation Status Age at Mother Sister Brother Level of Service:81676 [place] OFFICE/OUTPATIENT ESTABLISHED LOW MDM 20-29 MIN Normal [facility] Telemedicineon 11-02-2022 Telemedicine [id number] Kell Snow enrrique Azevedo 1960 Provider Department Center 11/02/2022 KELLIE RIVERA [facility] Family History Problem Relation Age of Onset Other Mother Coronary artery disease Sister Peripheral vascular disease Sister Coronary artery disease Brother Heart failure Brother Atrial fibrillation Brother Family Status - Relation Status Age at Mother Sister Brother Level of Service:07810 [place] PHYS/QHP TELEPHONE EVALUATION 21-30 MIN Normal [facility] Reminderson 09-25-2022 Reminders - From: Yolanda Mauro To: HELIO Whitfield; Sent: 12/07/2021 15:46:40 EDT Show up: 04/08/2022 14:46:00 EST Subject: JAYDA prior to 6 mos Due Date/Time: 05/08/2022 14:46:00 EST Reminder Message Patient needs JAYDA prior to 6 month appointment. wants JAYDA done at [facility]. orders faxed to [facility] patients appt was rescheduled to 08/20/22. pt aware to have testing done prior. Patient cancelled august appointment and has not rescheduled. diagnosis is not trackable Normal [facility] CT LUNG CANCER SCREENINGon 0 06-30-2022 [...] by: HAIR DIETZ Date: 2022-06-30 14:46 Normal [facility] STRESS/REST MULTIon 06-21 [facility] STRESS/REST MULTI Patient: SUMMER SNOW Exam Date: 06/21/2022 : 1960 Gender:F Ordering : DR BRANDT MCNAMARA M.D. Admission #: [id number] Family : DR SON IRIZARRY D.O. Order #: [id number] CLICK HERE TO VIEW EXAM RADIOLOGY REPORT [...] Dietz MD on 06/25/2022 at 09:33 Normal [facility] Lab Reportson 06-01-2022 Lab Reports [id number]#[id number]:127 Normal [facility] ECHOCARDIO M/2D COMPLETEon 0 05-31-2022 ECHOCARDIO M/2D COMPLETE Patient: PAM SNOW Exam Date: 05/31/2022 : 1960 Gender:F Ordering : DR BRANDT MCNAMARA M.D. Admission #: [id number] Family : Order #: [id number] CLICK HERE TO VIEW EXAM ECHOCARDIOGRAM REPORT [...] Mcnamara M.D. on 05/31/2022 at 22:12 Normal [facility] [place] May 29, 2022 PAM SNOW [address] [place] [address] SNOWEMELIA THOMPSONNDA S 1960 Dear Pam Snow , We have been trying to reach you with no success. It is important that you return our call upon receiving this letter. Also, at the time of your call, please provide us with your current information. Thank you for your prompt attention to this matter. Sincerely, [facility] [address] [facility] [place] [address] [facility] Provider Letter [facility] [place] May 29, 2022 PAM SNOW [address] [place] [address] PAM SNOW S 1960 Dear Pam Snow , We have been trying to reach you with no success. It is important that you return our call regarding your _ upon receiving this letter. Also, at the time of your call, please provide us with your current information. Thank you for your prompt attention to this matter. Sincerely, [facility] [address] [facility] [place] [address] [facility] Lab Reportson 05-22-2022 Lab Reports [id number]#[id number]:12 7 [facility] Lab Reports [id number]#[id number]:12 7 [facility] PROF CHEM 8 (BAS METB)on Anion gap [Moles/Vol] 11.0 mmol/L Normal [facility] Comment on above: Performed By: #### C KATYA, NA, CA, URIC, BUN, K, CO2, CL #### [facility] [address] [place] [address] Dr. Cesar Francis Calcium [Mass/Vol] 9.4 mg/dL Normal 8.5-10.1 [facility] Comment on above: Performed By: #### C KATYA, NA, CA, URIC, BUN, K, CO2, CL #### [facility] [address] [address] [address] Cesar Francis Chloride [Moles/Vol] 101 mmol/L Normal 98-107 [facility] Comment on above: Performed By: #### C KATYA, NA, CA, URIC, BUN, K, CO2, CL #### [facility] [address] [place] [address] Dr. Cesar Francis CO2 [Moles/Vol] 28.3 mmol/L Normal 21.0-32.0 [facility] Comment on above: Performed By: #### C KATYA, NA, CA, URIC, BUN, K, CO2, CL #### [facility] [address] [place] [address] Dr. Cesar Francis Creatinine [Mass/Vol] 0.72 mg/dL Normal 0.55-1.02 [facility] Comment on above: Performed By: #### C KATYA, NA, CA, URIC, BUN, K, CO2, CL #### [facility] [address] [place] [address] Dr. Cesar Francis EGFR-AF ANDORRAN >60 Normal >=60 [facility] Comment on above: Performed By: #### C KATYA, NA, CA, URIC, BUN, K, CO2, CL #### [facility] [address] [place] [address] Dr. Cesar Francis EGFR-NON AF ANDORRAN >60 Normal >=60 [facility] Comment on above: Performed By: #### C KATYA, NA, CA, URIC, BUN, K, CO2, CL #### [facility] [address] [address] [address] Cesar Francis Glucose [Mass/Vol] 92 mg/dL Normal 74-106 [facility] Comment on above: Performed By: #### C KATYA, NA, CA, URIC, BUN, K, CO2, CL #### [facility] [address] [address] [address] Cesar Francis Potassium [Moles/Vol] 3.3 mmol/L Critically low 3.5-5.1 [facility] Comment on above: Performed By: #### C KATYA, NA, CA, URIC, BUN, K, CO2, CL #### [facility] [address] [address] [address] Cesar Francis Sodium [Moles/Vol] 137 mmol/L Normal 136-145 [facility] Comment on above: Performed By: #### C KATYA, NA, CA, URIC, BUN, K, CO2, CL #### [facility] [address] [address] [address] Cesar Francis Urea nitrogen [Mass/Vol] 14.0 mg/dL Normal 7.0-18.0 [facility] Comment on above: Performed By: #### C KATYA, NA, CA, URIC, BUN, K, CO2, CL #### [facility] [address] [place] [address] Dr. Cesar Francis Urea nitrogen/Creatinine [Mass ratio] 19.4 mg/mg Normal [facility] Comment on above: Performed By: #### C KATYA, NA, CA, URIC, BUN, K, CO2, CL #### [facility] [address] [address] [address] Cesar Francis Reminderson 05-22-2022 Reminders - From: Amisha Scott To: EU - Recalls Nahid; Sent: 12/07/2021 15:54:24 EDT Show up: 04/20/2022 15:53:00 EST Subject: JAYDA needed May 2022 Due Date/Time: 06/07/2022 15:53:00 EDT Reminder/Recall This pt needs Renal US prior to 06/07/[address] Whitfield in [place] - pt uses [facility]-pls verify this with pt called patient to verify if she would like orders sent to [facility], left msg on voicemail for her to call office. Patient called back I will send order over to [facility]. Normal [facility] PTH INTACTon 05-19-2022 PTH, Intact 22 pg/mL Normal 15-65 [facility] Comment on above: Performed By: #### C KATYA, NA, CA, URIC, BUN, K, CO2, CL #### [facility] [address] [place] [address] Dr. Cesar Francis BUNon 05-18-2022 Urea nitrogen [Mass/Vol] 16.0 mg/dL Normal 7.0-18.0 [facility] Comment on above: Performed By: #### C KATYA, NA, CA, URIC, BUN, K, CO2, CL #### [facility] [address] [place] [address] Dr. Cesar Francis CALCIUMon 05-18-2022 Calcium [Mass/Vol] 9.2 mg/dL Normal 8.5-10.1 [facility] Comment on above: Performed By: #### C KATYA, NA, CA, URIC, BUN, K, CO2, CL #### [facility] [address] [place] [address] Dr. Cesar Francis CHLORIDEon 05-18-2022 Chloride [Moles/Vol] 104 mmol/L Normal 98-107 [facility] Comment on above: Performed By: #### C KATYA, NA, CA, URIC, BUN, K, CO2, CL #### [facility] [address] [place] [address] Dr. Cesar Francis CO2on 05-18-2022 CO2 [Moles/Vol] 28.4 mmol/L Normal 21.0-32.0 [facility] Comment on above: Performed By: #### C KATYA, NA, CA, URIC, BUN, K, CO2, CL #### [facility] [address] [place] [address] Dr. Cesar Francis CREATININEon 05-18-2022 Creatinine [Mass/Vol] 0.63 mg/dL Normal 0.55-1.02 [facility] Comment on above: Performed By: #### C KATYA, NA, CA, URIC, BUN, K, CO2, CL #### [facility] [address] [address] [address] Cesar Francis EGFR-AF ANDORRAN >60 Normal >=[address] [facility] Comment on above: Performed By: #### C KATYA, NA, CA, URIC, BUN, K, CO2, CL #### [facility] [address] [address] [address] Cesar Francis EGFR-NON AF ANDORRAN >60 Normal >=60 [facility] Comment on above: Performed By: #### C KATYA, NA, CA, URIC, BUN, K, CO2, CL #### [facility] [address] [address] [address] Cesar Francis MG MAMM SCREEN 3D ISAIAH CADon 05-18-2022 MG MAMM SCREEN 3D ISAIAH CAD Patient: PAM SNOW Exam Date: 05/18/2022 : 1960 Gender:F Ordering : DR DALE WILSON . Admission #: [id number] Family : RACHELLE WHITFIELD . Order #: [id number] CLICK HERE TO VIEW EXAM RADIOLOGY REPORT [...] lung cancer at age 54. LOCATION: [facility] BREAST COMPOSITION: Almost entirely fatty. FINDINGS: [...] Dietz MD on 05/18/2022 at 09:16 Normal [facility] NAon 05-18-2022 Sodium [Moles/Vol] 140 mmol/L Normal 136-145 [facility] Comment on above: Performed By: #### C KATYA, NA, CA, URIC, BUN, K, CO2, CL #### [facility] [address] [address] [address] Cesar Francis POTASSIUMon 05-18-2022 Potassium [Moles/Vol] 2.7 mmol/L Critically low 3.5-5.1 [facility] Comment on above: Performed By: #### C KATYA, NA, CA, URIC, BUN, K, CO2, CL #### [facility] [address] [place] [address] Dr. Cesar Francis URIC ACID SERUMon 05-18-2022 Urate [Mass/Vol] 6.0 mg/dL Normal 2.6-6.0 [facility] Comment on above: Performed By: #### C KATYA, NA, CA, URIC, BUN, K, CO2, CL #### [facility] [address] [place] [address] Dr. Cesar Francis US KIDNEYSon 05-18-2022 US KIDNEYS EXAMINATION: US [facility] HISTORY: Kidney stone COMPARISON: No [...] by: LIZET MALCOLM Date: 2022-05-18 08:47 Normal [facility] Formson 04-17-2022 Forms [id number]:12 7 Normal [facility] Reminderson 04-17-2022 Reminders - From: Yolanda Mauro To: Cristiane Grier; Sent: 12/07/2021 15:51:13 EDT Show up: 04/08/2022 14:51:00 EST Subject: LithoLink Due Date/Time: 05/08/2022 14:51:00 EST Reminder Message Patient needs LithoLink mailed to her prior to 6 month appointment. Litholink order faxed 04/17/22 Normal [facility] XR CHEST 2 Von 04-17-2022 XR [...] CHERRI HAMILTON Date: 2022-04-17 17:56 Normal [facility] CBC AUTO DIFFon 02-09-2022 BASO # 0.1 103/ul Normal 0.0-0.1 [facility] Comment on above: Performed By: #### C KATYA, NA, CA, URIC, BUN, K, CO2, CL #### [facility] [address] [address] [address] Cesar Francis Basophils/100 WBC (Bld) 2.3 % Critically high 0.2-2.0 [facility] Comment on above: Performed By: #### C KATYA, NA, CA, URIC, BUN, K, CO2, CL #### [facility] [address] [address] [address] Cesar Francis EO # 0.3 103/ul Normal 0.0-0.7 [facility] Comment on above: Performed By: #### C KATYA, NA, CA, URIC, BUN, K, CO2, CL #### [facility] [address] [place] [address] Dr. Cesar Francis Eosinophils/100 WBC (Bld) 4.1 % Normal 0.9-7.0 [facility] Comment on above: Performed By: #### C KATYA, NA, CA, URIC, BUN, K, CO2, CL #### [facility] [address] [place] [address] Dr. Cesar Francis Erythrocyte distribution width (RBC) [Ratio] 12.8 % Normal 11.0-15.0 [facility] Comment on above: Performed By: #### C KATYA, NA, CA, URIC, BUN, K, CO2, CL #### [facility] [address] [place] [address] Dr. Cesar Francis Hematocrit (Bld) [Volume fraction] 45.4 % Normal 36.0-48.0 [facility] Comment on above: Performed By: #### C KATYA, NA, CA, URIC, BUN, K, CO2, CL #### [facility] [address] [place] [address] Dr. Cesar Francis Hemoglobin (Bld) [Mass/Vol] 15.6 g/dL Normal 12.0-16.0 [facility] Comment on above: Performed By: #### C KATYA, NA, CA, URIC, BUN, K, CO2, CL #### [facility] [address] [place] [address] Dr. Cesar Francis IG # 0.01 10e3/ul Normal 0.00-0.03 [facility] Comment on above: Performed By: #### C KATYA, NA, CA, URIC, BUN, K, CO2, CL #### [facility] [address] [place] [address] Dr. Cesar Francis IG % 0.2 % Normal 0.0-0.5 [facility] Comment on above: Performed By: #### C KATYA, NA, CA, URIC, BUN, K, CO2, CL #### [facility] [address] [place] [address] Dr. Cesar Francis LYMPH # 1.6 103/ul Normal 1.2-3.8 [facility] Comment on above: Performed By: #### C KATYA, NA, CA, URIC, BUN, K, CO2, CL #### [facility] [address] [place] [address] Dr. Cesar Francis Lymphocytes/100 WBC (Bld) 26.2 % Normal 20.5-60.0 [facility] Comment on above: Performed By: #### C KATYA, NA, CA, URIC, BUN, K, CO2, CL #### [facility] [address] [place] [address] Dr. Cesar rFancis MANUAL DIFF REQ NO Normal [facility] Comment on above: Performed By: #### C KATYA, NA, CA, URIC, BUN, K, CO2, CL #### [facility] [address] [place] [address] Dr. Cesar Francis MCH (RBC) [Entitic mass] 28.6 pg Normal 26.7-34.0 [facility] Comment on above: Performed By: #### C KATYA, NA, CA, URIC, BUN, K, CO2, CL #### [facility] [address] [place] [address] Dr. Cesar Francis MCHC (RBC) [Mass/Vol] 34.4 g/dL Normal 29.9-35.2 [facility] Comment on above: Performed By: #### C KATYA, NA, CA, URIC, BUN, K, CO2, CL #### [facility] [address] [place] [address] Dr. Cesar Francis MCV (RBC) [Entitic vol] 83.3 fL Normal 81.0-99.0 [facility] Comment on above: Performed By: #### C KATYA, NA, CA, URIC, BUN, K, CO2, CL #### [facility] [address] [place] [address] Dr. Cesar Francis MONO # 0.8 103/ul Normal 0.3-0.8 [facility] Comment on above: Performed By: #### C KATYA, NA, CA, URIC, BUN, K, CO2, CL #### [facility] [address] [place] [address] Dr. Cesar Francis Monocytes/100 WBC (Bld) 12.5 % Critically high 1.7-12.0 [facility] Comment on above: Performed By: #### C KATYA, NA, CA, URIC, BUN, K, CO2, CL #### [facility] [address] [place] [address] Dr. Cesar Francis NEUT # 3.3 103/ul Normal 1.4-6.5 [facility] Comment on above: Performed By: #### C KATYA, NA, CA, URIC, BUN, K, CO2, CL #### [facility] [address] [place] [address] Dr. Cesar Francis Neutrophils/100 WBC (Bld) 54.7 % Normal 43.0-75.0 [facility] Comment on above: Performed By: #### C KATYA, NA, CA, URIC, BUN, K, CO2, CL #### [facility] [address] [place] [address] Dr. Cesar Francis Platelet mean volume (Bld) [Entitic vol] 10.6 fL Normal 9.5-13.5 [facility] Comment on above: Performed By: #### C KATYA, NA, CA, URIC, BUN, K, CO2, CL #### [facility] [address] [place] [address] Dr. Cesar Francis PLT 275 103/ul Normal 150-450 [facility] Comment on above: Performed By: #### C KATYA, NA, CA, URIC, BUN, K, CO2, CL #### [facility] [address] [place] [address] Dr. Cesar Francis RBC 5.45 106/ul Critically high 4.20-5.[address] [facility] Comment on above: Performed By: #### C KATYA, NA, CA, URIC, BUN, K, CO2, CL #### [facility] [address] [place] [address] Dr. Cesar Francis WBC 6.1 103/ul Normal 4.0-11.0 [facility] Comment on above: Performed By: #### C KATYA, NA, CA, URIC, BUN, K, CO2, CL #### [facility] [address] [address] [address] Cesar Francis LIPID PROFILEon 02-09-2022 CHOL-HDL RATIO NORM SEE BELOW Normal [facility] Comment on above: Result Comment: 3.3 - 4.4 LOW RISK 4.4 - 7.1 AVERAGE RISK 7.1 - 11.0 MODERATE RISK >11.0 HIGH RISK Performed By: #### C KATYA, NA, CA, URIC, BUN, K, CO2, CL #### [facility] [address] [address] [address] Cesar Francis Cholesterol [Mass/Vol] 241 mg/dL Critically high <=200 [facility] Comment on above: Performed By: #### C KATYA, NA, CA, URIC, BUN, K, CO2, CL #### [facility] [address] [address] [address] Cesar Francis Cholesterol in HDL [Mass/Vol] 66 mg/dL Critically high 40-60 [facility] Comment on above: Performed By: #### C KATYA, NA, CA, URIC, BUN, K, CO2, CL #### [facility] [address] [place] [address] Dr. Cesar Francis Cholesterol in LDL [Mass/Vol] 156.0 mg/dL Normal [facility] Comment on above: Performed By: #### C KATYA, NA, CA, URIC, BUN, K, CO2, CL #### [facility] [address] [address] [address] Cesar Francis Cholesterol.total/Ch olesterol in HDL [Mass ratio] 3.7 {ratio} Normal [facility] Comment on above: Performed By: #### C KATYA, NA, CA, URIC, BUN, K, CO2, CL #### [facility] [address] [address] [address] Cesar Francis HDL NORMAL > or = 60 mg/dl - LO W CARDIOVASCULAR RISK <40 mg/dl - HIGH CARDIOVASCULAR RISK Normal [facility] Comment on above: Performed By: #### C KATYA, NA, CA, URIC, BUN, K, CO2, CL #### [facility] [address] [address] [address] Cesar Francis LDL CALC NORMAL SEE BELOW Normal [facility] Comment on above: Result Comment: <100 mg/dl OPTIMAL 100 - 129 mg/dl NEAR OR ABOVE OPTIMAL 130 - 159 mg/dl BORDERLINE HIGH 160 - 189 mg/dl HIGH >190 mg/dl VERY HIGH Performed By: #### C KATYA, NA, CA, URIC, BUN, K, CO2, CL #### [facility] [address] [address] [address] Cesar Francis Triglyceride [Mass/Vol] 95 mg/dL Normal <=150 [facility] Comment on above: Performed By: #### C KATYA, NA, CA, URIC, BUN, K, CO2, CL #### [facility] [address] [address] [address] Cesar Francis VLDL CALC 19.0 mg/dL Normal [facility] Comment on above: Performed By: #### C KATYA, NA, CA, URIC, BUN, K, CO2, CL #### [facility] [address] [address] [address] Cesar Francis PROF 14(COMP METB)on 022 Albumin [Mass/Vol] 3.6 g/dL Normal 3.4-5.0 [facility] Comment on above: Performed By: #### C KATYA, NA, CA, URIC, BUN, K, CO2, CL #### [facility] [address] [address] [address] Cesar Francis Albumin/Globulin [Mass ratio] 1.0 {ratio} Normal [facility] Comment on above: Performed By: #### C KATYA, NA, CA, URIC, BUN, K, CO2, CL #### [facility] [address] [address] [address] Cesar Francis ALP [Catalytic activity/Vol] 65 U/L Normal 46-116 [facility] Comment on above: Performed By: #### C KATYA, NA, CA, URIC, BUN, K, CO2, CL #### [facility] [address] [place] [address] Dr. Cesar Francis ALT [Catalytic activity/Vol] 31 U/L Normal 14-59 [facility] Comment on above: Performed By: #### C KATYA, NA, CA, URIC, BUN, K, CO2, CL #### [facility] [address] [place] [address] Dr. Cesar Francis Anion gap [Moles/Vol] 13.2 mmol/L Normal [facility] Comment on above: Performed By: #### C KATYA, NA, CA, URIC, BUN, K, CO2, CL #### [facility] [address] [place] [address] Dr. Cesar Francis AST [Catalytic activity/Vol] 21 U/L Normal 15-37 [facility] Comment on above: Performed By: #### C KATYA, NA, CA, URIC, BUN, K, CO2, CL #### [facility] [address] [place] [address] Dr. Cesar Francis Bilirubin [Mass/Vol] 0.5 mg/dL Normal 0.2-1.0 [facility] Comment on above: Performed By: #### C KATYA, NA, CA, URIC, BUN, K, CO2, CL #### [facility] [address] [place] [address] Dr. Cesar Francis Calcium [Mass/Vol] 9.0 mg/dL Normal 8.5-10.1 [facility] Comment on above: Performed By: #### C KATYA, NA, CA, URIC, BUN, K, CO2, CL #### [facility] [address] [place] [address] Dr. Cesar Francis Chloride [Moles/Vol] 101 mmol/L Normal 98-107 [facility] Comment on above: Performed By: #### C KATYA, NA, CA, URIC, BUN, K, CO2, CL #### [facility] [address] [place] [address] Dr. Cesar Francis CO2 [Moles/Vol] 29.5 mmol/L Normal 21.0-32.0 [facility] Comment on above: Performed By: #### C KATYA, NA, CA, URIC, BUN, K, CO2, CL #### [facility] [address] [address] [address] Cesar Francis Creatinine [Mass/Vol] 0.71 mg/dL Normal 0.55-1.02 [facility] Comment on above: Performed By: #### C KATYA, NA, CA, URIC, BUN, K, CO2, CL #### [facility] [address] [address] [address] Cesar Francis EGFR-AF ANDORRAN >60 Normal >=60 [facility] Comment on above: Performed By: #### C KATYA, NA, CA, URIC, BUN, K, CO2, CL #### [facility] [address] [place] [address] Dr. Cesar Francis EGFR-NON AF ANDORRAN >60 Normal >=60 [facility] Comment on above: Performed By: #### C KATYA, NA, CA, URIC, BUN, K, CO2, CL #### [facility] [address] [place] [address] Dr. eCsar Francis Globulin (S) [Mass/Vol] 3.5 g/dL Normal [facility] Comment on above: Performed By: #### C KATYA, NA, CA, URIC, BUN, K, CO2, CL #### [facility] [address] [address] [address] Cesar Francis Glucose [Mass/Vol] 102 mg/dL Normal 74-106 [facility] Comment on above: Performed By: #### C KATYA, NA, CA, URIC, BUN, K, CO2, CL #### [facility] [address] [place] [address] Dr. Cesar Francis Potassium [Moles/Vol] 3.7 mmol/L Normal 3.5-5.1 [facility] Comment on above: Performed By: #### C KATYA, NA, CA, URIC, BUN, K, CO2, CL #### [facility] [address] [address] [address] Cesar Francis Protein [Mass/Vol] 7.1 g/dL Normal 6.4-8.2 [facility] Comment on above: Performed By: #### C KATYA, NA, CA, URIC, BUN, K, CO2, CL #### [facility] [address] [address] [address] Cesar Francis Sodium [Moles/Vol] 140 mmol/L Normal 136-145 [facility] Comment on above: Performed By: #### C KATYA, NA, CA, URIC, BUN, K, CO2, CL #### [facility] [address] [address] [address] Cesar Francis Urea nitrogen [Mass/Vol] 28.0 mg/dL Critically high 7.0-18.0 [facility] Comment on above: Performed By: #### C KATYA, NA, CA, URIC, BUN, K, CO2, CL #### [facility] [address] [address] [address] Cesar Francis Urea nitrogen/Creatinine [Mass ratio] 39.4 mg/mg Normal [facility] Comment on above: Performed By: #### C KATYA, NA, CA, URIC, BUN, K, CO2, CL #### [facility] [address] [address] [address] Cesar Francis Screenson 12-08-2021 Screens [id number]:12 7 Normal [facility] Ambulatory Visit Summaryon 0 12-07-2021 Ambulatory Visit Summary PAM SNOW :1960 Visit Date:12/07/2021 Ambulatory Visit Instructions Your Diagnosis Kidney stone Tests Performed Urnls Dip Stick Auto w/o Microscopy POC 46763 XR Abdomen 1 View -- Results Pending [...] KELLY, Rachelle [place] Where: [facility] Patient Educationon 12-08-19 Patient Education Urology Kidney [...] these instructions at home: Medicines ? Take [id number] and prescription medicines only as told by [...] 08/13/2008 Document Revised: 07/14/2019 Document Reviewed: 07/14/2019 Global Filmdemic Patient Education ? 2019 [employer]. [facility] Urology Office/Clinic Noteon 12-07-2021 Urology Office/Clinic [...] mos KUB, JAYDA Patient Education Kidney Stones, [id number] IYolanda, personally scribed for Dr. Whitfield on [...] Cystoscopy (07/16/2011), Cysto (more content not included)... [facility] Comment on above: Result Comment: Elec tronically Signed By: Rachelle Whitfield MD\.br\Date and Time Signed: 12/07/21 16:44 EDT\.br\Electronically Co-Signed By: Yolanda Mauro.br\Date and Time Co-Signed: 12/07/21 15:46 EDT Lab Reportson 10-18-2021 Lab Reports [id number]:12 7 [facility] Lab Reportson 10-11-2021 Lab Reports [id number]:12 7 [facility] Lab Reports [id number]:12 7 Normal [facility] PTH INTACTon 10-10-2021 PTH, Intact 13 pg/mL Critically low 15-65 [facility] Comment on above: Performed By: #### C KATYA, NA, CA, URIC, BUN, K, CO2, CL #### [facility] [address] [place] [address] Dr. Cesar Francis BUNon 10-09-2021 Urea nitrogen [Mass/Vol] 11.0 mg/dL Normal 7.0-18.0 [facility] Comment on above: Performed By: #### C KATYA, NA, CA, URIC, BUN, K, CO2, CL #### [facility] [address] [place] [address] Dr. Cesar Francis CALCIUMon 10-09-2021 Calcium [Mass/Vol] 9.2 mg/dL Normal 8.5-10.1 [facility] Comment on above: Performed By: #### C KATYA, NA, CA, URIC, BUN, K, CO2, CL #### [facility] [address] [address] [address] Cesar Francis CHLORIDEon 10-09-2021 Chloride [Moles/Vol] 104 mmol/L Normal 98-107 [facility] Comment on above: Performed By: #### C KATYA, NA, CA, URIC, BUN, K, CO2, CL #### [facility] [address] [place] [address] Dr. Cesar Francis CO2on 10-09-2021 CO2 [Moles/Vol] 28.5 mmol/L Normal 21.0-32.0 [facility] Comment on above: Performed By: #### C KATYA, NA, CA, URIC, BUN, K, CO2, CL #### [facility] [address] [place] [address] Dr. Cesar Francis CREATININEon 10-09-2021 Creatinine [Mass/Vol] 0.83 mg/dL Normal 0.55-1.02 [facility] Comment on above: Performed By: #### C KATYA, NA, CA, URIC, BUN, K, CO2, CL #### [facility] [address] [address] [address] Cesar Francis EGFR-AF ANDORRAN >60 Normal >=60 [facility] Comment on above: Performed By: #### C KATYA, NA, CA, URIC, BUN, K, CO2, CL #### [facility] [address] [address] [address] Cesar Francis EGFR-NON AF ANDORRAN >60 Normal >=60 [facility] Comment on above: Performed By: #### C KATYA, NA, CA, URIC, BUN, K, CO2, CL #### [facility] [address] [place] [address] Dr. Cesar Francis NAon 10-09-2021 Sodium [Moles/Vol] 143 mmol/L Normal 136-145 [facility] Comment on above: Performed By: #### C KATYA, NA, CA, URIC, BUN, K, CO2, CL #### [facility] [address] [address] [address] Cesar Francis PHOSPHORUSon 10-09-2021 Phosphate [Mass/Vol] 2.7 mg/dL Normal 2.6-4.7 [facility] Comment on above: Performed By: #### C KATYA, NA, CA, URIC, BUN, K, CO2, CL #### [facility] [address] [address] [address] Cesar Francis URIC ACID SERUMon 10-09-2021 Urate [Mass/Vol] 5.8 mg/dL Normal 2.6-6.0 [facility] Comment on above: Performed By: #### C KATYA, NA, CA, URIC, BUN, K, CO2, CL #### [facility] [address] [place] [address] Dr. Cesar Francis PROTIMEon 05-04-2017 INR Coag RelTime (PPP) 1.04 {INR} Normal 0.00-1.20 [facility] Comment on above: Order Comment: CONSE RVATIONList patient's anticoagulants for PT: NONE SPECIFIED Result Comment: [place] mmended therapeutic range is an INR of 2.0-3.0 exceptfor prevention of recurrent acute ME and mechanicalprosthetic heart valve where an INR of 2.5-3.5 isrecommended. Performed By: #### L 300.06931 ####Test performed at: [address] [address] PT SEC 11.0 seconds Normal 9.7-11.5 [facility] Comment on above: Order Comment: CONSE RVATIONList patient's anticoagulants for PT: NONE SPECIFIED Performed By: #### L 300.65982 ####Test performed at: [address] [address] CARDIAC CATHETERIZATIONon CARDIAC CATHETERIZATION PATIENT NAME: ANNELISE SNOW#: [id number]: ANNELISE SNOW#: [id number] OF PROCEDURE: 05/03/2017CARDIAC CATHHISTORY OF PRESENT ILLNESS: [...] was accessedwith a multipurpose needle and a 6-[place] sheath inserted. Selective coronaryarteriography was performed using 6-[place] JL4 and 6-[place] JR4 catheters.Left ventriculography was performed using a 6-[place] angled pigtail catheter.At the end of the [...] groove. [facility]: [facility]OW [facility] REC: [id number] ACCOUNT NUM: [id number]/BED: [place] : [id number] [address] ATTENDING PHY: Candice Torres MDCARDIAC CATHETERIZATIONPATIENT NAME: QUE SNOWR#: [id number] contain any significant disease.LEFT VENTRICULOGRAM: The left ventricular injection reveals a normal size leftventricle with normal contractility and normal ejection fraction. There is noangiographic mitral regurgitation.FINAL DIAGNOSIS:1. CAD-luminal irregularities, left main trunk-patent stent in proximal LAD-60-70% mid point. Posterior descending jqudurzmna-51-23% mid rightcoronary artery.RECOMMENDATION: The circumflex stent will [...] at anappropriate time on the floor. MICHAEL MOREIRA/SEAN/[id number] 25D: 05/03/2017 13:24:11 E/S: Candice Torres MD05/07/17 0850[facility]IENT NAME: BEKA SNOW [facility] REC: [id number] ACCOUNT NUM: [id number]/BED: [place] [place] [address] : [id number] [address] ATTENDING PHY: Candice Torres MDCARDIAC CATHETERIZATION Normal [facility] CBC W/DIFFon 05-03-2017 BASO ABS 0.1 K/uL Normal 0.0-0.2 [facility] Comment on above: Order Comment: CONSE RVATION Performed By: #### L 200.93308 ####Test performed at: [address] [address] Basophils/100 WBC Auto (Bld) 1.8 % Normal [facility] Comment on above: Order Comment: CONSE RVATION Performed By: #### L 200.52049 ####Test performed at: [address] [address] EOS ABS 0.2 K/uL Normal 0.0-0.5 [facility] Comment on above: Order Comment: CONSE RVATION Performed By: #### L 200.23914 ####Test performed at: [address] [address] Eosinophils/100 leukocytes 2.6 % Normal [facility] Comment on above: Order Comment: CONSE RVATION Performed By: #### L 200.90745 ####Test performed at: [address] [address] Erythrocyte distribution width Auto Ratio (RBC) 13.7 % Normal 11.5-14.5 [facility] Comment on above: Order Comment: CONSE RVATION Performed By: #### L 200.14802 ####Test performed at: [address] [address] Erythrocytes (RBC) 5.06 10*6/uL Normal 3.5-5.5 [facility] Comment on above: Order Comment: CONSE RVATION Performed By: #### L 200.55869 ####Test performed at: [address] [id number] Erythrocytes (RBC) 0.000 10*6/uL Normal 0-0.012 [facility] Comment on above: Order Comment: CONSE RVATION Performed By: #### L 200.55668 ####Test performed at: [address] [address] Hematocrit (HCT) 42.6 % Normal 36.0-48.0 [facility] Comment on above: Order Comment: CONSE RVATION Performed By: #### L 200.72508 ####Test performed at: [address] [place] [address] Hemoglobin mass conc (Bld) 14.1 g/dL Normal 12.0-15.0 [facility] Comment on above: Order Comment: CONSE RVATION Performed By: #### L 200.09620 ####Test performed at: [address] [place] [address] IG % 0.3 % Normal [facility] Comment on above: Order Comment: CONSE RVATION Performed By: #### L 200.78895 ####Test performed at: [address] [address] IG ABS 0.02 K/uL Normal 0-0.05 [facility] Comment on above: Order Comment: CONSE RVATION Performed By: #### L 200.93149 ####Test performed at: [address] [address] Lymphocytes 1.5 10*3/uL Normal 1.2-3.5 [facility] Comment on above: Order Comment: CONSE RVATION Performed By: #### L 200.30118 ####Test performed at: [address] [address] Lymphocytes/100 leukocytes 20.2 % Normal [facility] Comment on above: Order Comment: CONSE RVATION Performed By: #### L 200.22890 ####Test performed at: [address] [address] MCH 27.9 pg Normal 25.4-34.6 [facility] Comment on above: Order Comment: CONSE RVATION Performed By: #### L 200.31112 ####Test performed at: [address] [address] MCHC mass conc (RBC) 33.1 g/dL Normal 31.5-36.5 [facility] Comment on above: Order Comment: CONSE RVATION Performed By: #### L 200.76487 ####Test performed at: [place] [address] MCV 84.2 fL Normal 79.0-98.0 [facility] Comment on above: Order Comment: CONSE RVATION Performed By: #### L 200.62527 ####Test performed at: [address] [address] MONO ABS 0.7 K/uL Normal 0.0-1.0 [facility] Comment on above: Order Comment: CONSE RVATION Performed By: #### L 200.79026 ####Test performed at: [address] [address] Monocytes/100 leukocytes 9.4 % Normal [facility] Comment on above: Order Comment: CONSE RVATION Performed By: #### L 200.34800 ####Test performed at: [address] [address] Neutrophils 4.8 10*3/uL Normal 1.4-6.6 [facility] Comment on above: Order Comment: CONSE RVATION Performed By: #### L 200.40461 ####Test performed at: [address] [address] Neutrophils/100 WBC Auto (Bld) 65.7 % Normal [facility] Comment on above: Order Comment: CONSE RVATION Performed By: #### L 200.91825 ####Test performed at: [address] [address] NRBC % 0.0 /100 WBC Normal 0-0.2 [facility] Comment on above: Order Comment: CONSE RVATION Performed By: #### L 200.96492 ####Test performed at: [address] [address] Platelet mean volume (PMV) 11.9 fL Normal 8.7-12.4 [facility] Comment on above: Order Comment: CONSE RVATION Performed By: #### L 200.87448 ####Test performed at: [address] [address] Platelets 207 10*3/uL Normal 140-440 [facility] Comment on above: Order Comment: CONSE RVATION Performed By: #### L 200.39282 ####Test performed at: [address] [address] WBC (Leukocytes) 7.2 10*3/uL Normal 3.9-11.0 [facility] Comment on above: Order Comment: CONSE RVATION Performed By: #### L 200.35013 ####Test performed at: [address] [address] COMP META PANELon 05-03-2017 Alanine aminotransferase (ALT) 17 U/L Normal 13-61 [facility] Comment on above: Order Comment: CONSE RVATIONIs patient fasting? UNKNOWN Performed By: #### L 500.37466, L500.11009, L500.59244, L500.04782 ####Test performed at: [place] [id number] Albumin 3.4 g/dL Normal 3.4-5.0 [facility] Comment on above: Order Comment: CONSE RVATIONIs patient fasting? UNKNOWN Performed By: #### L 500.71479, L500.20819, L500.26008, L500.31261 ####Test performed at: [place] [address] ALK PHOS TOTAL 96 U/L Normal 45-117 [facility] Comment on above: Order Comment: CONSE RVATIONIs patient fasting? UNKNOWN Performed By: #### L 500.37434, L500.58001, L500.45062, L500.68647 ####Test performed at: [place] [address] Aspartate aminotransferase (AST) 15 U/L Normal 15-37 [facility] Comment on above: Order Comment: CONSE RVATIONIs patient fasting? UNKNOWN Performed By: #### L 500.98017, L500.98986, L500.55124, L500.35721 ####Test performed at: [place] [address] BILI TOTAL 0.7 mg/dL Normal 0.2-1.0 [facility] Comment on above: Order Comment: CONSE RVATIONIs patient fasting? UNKNOWN Performed By: #### L 500.47341, L500.48168, L500.42898, L500.43171 ####Test performed at: [place] [address] Calcium 8.3 mg/dL Low 8.5-10.1 [facility] Comment on above: Order Comment: CONSE RVATIONIs patient fasting? UNKNOWN Performed By: #### L 500.93303, L500.54368, L500.26307, L500.70825 ####Test performed at: [place] [address] Chloride 108 mmol/L High 98-107 [facility] Comment on above: Order Comment: CONSE RVATIONIs patient fasting? UNKNOWN Performed By: #### L 500.57584, L500.01545, L500.25951, L500.69701 ####Test performed at: [place] [address] CO2 30 mmol/L Normal 21-32 [facility] Comment on above: Order Comment: CONSE RVATIONIs patient fasting? UNKNOWN Performed By: #### L 500.03971, L500.74942, L500.30149, L500.03333 ####Test performed at: [place] [address] Creatinine 0.648 mg/dL Normal 0.550-1.020 [facility] Comment on above: Order Comment: CONSE RVATIONIs patient fasting? UNKNOWN Performed By: #### L 500.21934, L500.26887, L500.50752, L500.39038 ####Test performed at: [place] [address] Glucose mass conc 94 mg/dL Normal 74-106 [facility] Comment on above: Order Comment: CONSE RVATIONIs patient fasting? UNKNOWN Performed By: #### L 500.14839, L500.96443, L500.32097, L500.06218 ####Test performed at: [address] [address] Potassium molar conc 4.2 mmol/L Normal 3.5-5.1 [facility] Comment on above: Order Comment: CONSE RVATIONIs patient fasting? UNKNOWN Performed By: #### L 500.43309, L500.99008, L500.22369, L500.35099 ####Test performed at: [place] [address] Protein 6.4 g/dL Normal 6.4-8.2 [facility] Comment on above: Order Comment: CONSE RVATIONIs patient fasting? UNKNOWN Performed By: #### L 500.17194, L500.20616, L500.83703, L500.18252 ####Test performed at: [place] [address] Sodium 142 mmol/L Normal 136-145 [facility] Comment on above: Order Comment: CONSE RVATIONIs patient fasting? UNKNOWN Performed By: #### L 500.28572, L500.22810, L500.26355, L500.06250 ####Test performed at: [place] [address] Urea nitrogen 10 mg/dL Normal 7-18 [facility] Comment on above: Order Comment: CONSE RVATIONIs patient fasting? UNKNOWN Performed By: #### L 500.42203, L500.42836, L500.69731, L500.37717 ####Test performed at: [place] [address] Cardiology Progress Noteon 0 05-03-2017 Cardiology Progress Note [facility] Pt Name: QUE SNOWA[address] MR#: [id number], [place] [address] ACCT: [id number] NOTE - Cardiology : 59Service Date: 05/04/17 1131NAME: ANNELISE SNOW#: [id number] OF SERVICE: 05/04/2017CARDIOLOGY PROGRESS NOTESUBJECTIVE: Mrs. Snow [...] me with jason 1 month. CANDICE TORRES, LATHAJS/[facility]/[id number]: 05/04/2017 11:31:37 eSign Date and TimeSteele,Candice Blanca MD Signature on File 05/04/17 1156 Normal [facility] EKGon 05-03-2017 EKG Acquired on 05/03/19 18 0957Vent. Rate : 055 BPM Atrial Rate : 055 BPMP-R Int : 188 ms QRS Dur : 080 msQT Int : 396 ms P-R-T Axes : 058 062 055 degreesQTc Int : 378 msSinus bradycardiaOtherwise normal ECGNo previous ECGs availableConfirmed by CANDICE TORRES MD ([id number]) on 05/04/2017 11:16:47 AMReferred By: Confirmed By:CANDICE TORRES [id number] 2017 [facility] PT NAME: ANNELISE SNOW#: [id number] [place] [address] ACCT: [id number]: [id number] REPORT Normal [facility] EST. CREAT CLRon 05-03-2017 Creatinine 104.424 ML/MIN Normal [facility] Comment on above: Order Comment: CONSE RVATIONIs patient fasting? UNKNOWN Result Comment: This result is an ESTIMATED blood creatinine clearance valuewhich is derived from the patient age, sex, weight, andprevious blood creatinine result. Performed By: #### L 500.93578, L500.51347, L500.48947, L500.30340 ####Test performed at: [place] [address] GFR ESTIMATEon 05-03-2017 IF AMER > 60 Normal > 60 [facility] Comment on above: Order Comment: CONSE RVATIONIs patient fasting? UNKNOWN Result Comment: eGFR (Estimated GFR) Units of measure:mL/min/1.73 meters sq.*CALCULATION REVISED 12/28/2014;IDMS-traceable MDRD equationeGFR is derived from the reexpressed MDRD Study equationusing the following parameters: serum creatinine, age,gender and race. An eGFR<60 mL/min/1.73m2 for >3 monthsis consistent with chronic kidney disease. Refer to KDOQIguidelines for clinical interpretation. Performed By: #### L 500.40410, L500.61323, L500.51042, L500.93014 ####Test performed at: [place] [address] IF non-AFR AMER > 60 Normal > 60 [facility] Comment on above: Order Comment: CONSE RVATIONIs patient fasting? UNKNOWN Performed By: #### L 500.81387, L500.79491, L500.83440, L500.48000 ####Test performed at: [place] [address] LIPID PROFILEon 05-03-2017 Cholesterol 255 mg/dL High <200 [facility] Comment on above: Order Comment: CONSE RVATIONIs patient fasting? UNKNOWN Result Comment: <200 mg/dL (Desirable) 200-240 mg/dL (Borderline) >240 mg/dL (High Risk) Performed By: #### L 500.44168, L500.60577, L500.79663, L500.46627 ####Test performed at: [place] [id number] HDL Cholesterol 51 mg/dL Normal 40-60 [facility] Comment on above: Order Comment: CONSE RVATIONIs patient fasting? UNKNOWN Performed By: #### L 500.08158, L500.37644, L500.03411, L500.06617 ####Test performed at: [place] [id number] LDL Cholesterol 188 mg/dL High 60-130 [facility] Comment on above: Order Comment: CONSE RVATIONIs patient fasting? UNKNOWN Performed By: #### L 500.85469, L500.31198, L500.92234, L500.69282 ####Test performed at: [place] [address] Triglyceride 99 mg/dL Normal <150 [facility] Comment on above: Order Comment: CONSE RVATIONIs patient fasting? UNKNOWN Result Comment: <150 mg/dL (Normal) 150-199 mg/dL (Borderline) 200-499 mg/dL (High) >500 mg/dL (Very High) Performed By: #### L 500.85135, L500.22288, L500.91545, L500.95433 ####Test performed at: [place] [address] PROTIMEon 05-03-2017 INR Coag RelTime (PPP) 1.06 {INR} Normal 0.00-1.20 [facility] Comment on above: Order Comment: CONSE RVATIONList patient's anticoagulants for PT: HEPARIN Result Comment: Troy mmended therapeutic range is an INR of 2.0-3.0 exceptfor prevention of recurrent acute ME and mechanicalprosthetic heart valve where an INR of 2.5-3.5 isrecommended. Performed By: #### L 300.15109 ####Test performed at: [place] [address] PT SEC 11.2 seconds Normal 9.7-11.5 [facility] Comment on above: Order Comment: CONSE RVATIONList patient's anticoagulants for PT: HEPARIN Performed By: #### L 300.55481 ####Test performed at: [address] [address] Vital Signs Date Time Vital Sign Value Performing Clinician Arti cotton 08-15-2023 09:13-0400 Body height 165.1 cm [facility] 08-15-2023 09:13-0400 Body mass index (BMI) [Ratio] 26.6 kg/m2 [facility] 08-15-2023 09:13-0400 Body weight 72.74 kg [facility] 08-15-2023 09:13-0400 Diastolic blood pressure 69 mm[Hg] [facility] 08-15-2023 09:13-0400 Heart rate 60 /min [facility] 08-15-2023 09:13-0400 Respiratory rate 12 /min [facility] 08-15-2023 09:13-0400 Systolic blood pressure 118 mm[Hg] [facility] 06-05-2023 08:38-0400 Body height 165.1 cm [facility] 06-05-2023 08:38-0400 Body mass index (BMI) [Ratio] 26.8 kg/m2 [facility] 06-05-2023 08:38-0400 Body weight 73.02 kg [facility] 06-05-2023 08:38-0400 Diastolic blood pressure 76 mm[Hg] [facility] 06-05-2023 08:38-0400 Heart rate 73 /min [facility] 06-05-2023 08:38-0400 Respiratory rate 12 /min [facility] 06-05-2023 08:38-0400 Systolic blood pressure 124 mm[Hg] [facility] 06-19-2021 14:55-0400 Blood Pressure Location Rachelle Whitfield [facility] 04-11-2022 14:55-0400 Diastolic blood pressure 78 mm[Hg] Rachelle Lue [facility] 06-19-2021 14:55-0400 Heart rate 78 /min Rachelle Lue [facility] 06-19-2021 14:55-0400 Respiratory rate 16 /min Rachelle Lue [facility] 06-19-2021 14:55-0400 Systolic blood pressure 115 mm[Hg] Rachelle Lue [facility] Encounters Encounter Date Encounter Type Care Provider Facility Start: 09-30-2023 End: 09-30-2023 ambulatory RUFINO B APLING Not Available Start: 09-09-2023 End: 09-09-2023 ambulatory DALE KATIE Not Available Start: 09-04-2023 End: 09-04-2023 ambulatory RUFINO B APLING Not Available Start: 08-28-2023 End: 08-28-2023 Evaluation and management of inpatient BACILIO [facility] Start: 08-28-2023 End: 08-28-2023 Evaluation and management of inpatient LORRAINE [facility] Start: 08-15-2023 End: 08-15-2023 ambulatory [facility] Work Phone: Start: 08-15-2023 End: 08-15-2023 Patient encounter procedure [facility] Physician [facility] Work Phone: Start: 08-07-2023 End: 08-07-2023 ambulatory [facility] Start: 08-07-2023 End: 08-07-2023 Encounter for preprocedural cardiovascular examination [facility] Start: 08-01-2023 Encounter for other preprocedural examination LORRAINE [facility] Start: 08-01-2023 End: 08-01-2023 ambulatory LORRAINE Pratt JOSEPHINE [facility] Start: 07-30-2023 End: 07-30-2023 ambulatory LORRAINE Pratt JOSEPHINE Not Available Start: 07-22-2023 End: 07-22-2023 ambulatory LORRAINE Pratt JOSEPHINE Not Available Start: 07-16-2023 End: 07-16-2023 ambulatory LORRAINE RAYA Not Available Start: 06-05-2023 End: 06-05-2023 ambulatory [facility] Work Phone: Start: 06-05-2023 End: 06-05-2023 Encounter for general adult medical examination without abnormal findings [facility] Start: 06-05-2023 End: 06-05-2023 Patient encounter procedure [facility] Physician [facility] Work Phone: Start: 05-31-2023 Non-patient / Non-visit [facility] Physician [facility] Work Phone: Start: 05-08-2023 Non-patient / Non-visit [facility] Physician [facility] Work Phone: Start: 05-08-2023 Non-patient / Non-visit [facility] Physician [facility] Work Phone: Start: 05-07-2023 End: 05-07-2023 ambulatory ABI GIBBS Not Available Start: 04-30-2023 End: 04-30-2023 ambulatory LORRAINE Terence JOSEPHINE Not Available Start: 04-09-2023 End: 04-09-2023 ambulatory LORRAINE Terence JOSEPHINE Not Available Start: 04-01-2023 End: 04-01-2023 ambulatory ABI GIBBS Not Available Start: 03-26-2023 Patient encounter procedure [facility]- Start: 03-18-2023 End: 03-18-2023 ambulatory ABI GIBBS Not Available Start: 01-30-2023 End: [facility]30[facility] Start: 11-02-2022 End: 11-02-2022 ambulatory KELLIE [facility] Start: 08-20-2022 ambulatory Rachellederrell Herberte Facility:[facility] Start: 06-30-2022 End: 07-01-[address] HAIR DIETZ Facility:[facility] Start: 06-21-2022 End: 06-22-[address] HAIR DIETZ Facility:[facility] Start: 06-20-2022 ambulatory BRANDT MCNAMARA Facili ty:[facility] Start: 06-09-2022 ambulatory BRANDT MCNAMARA Facili ty:[facility] Start: 05-31-2022 End: 06-01-2022 ambulatory BRANDT MCNAMARA Facility:[facility] Start: 05-22-2022 End: 05-23-2022 ambulatory RACHELLE WHITFIELD . Facility:[facility] Start: 05-18-2022 End: 05-19-2022 ambulatory RACHELLE WHITFIELD . Facility:[facility] Start: 04-17-2022 End: 04-18-[address] SON IRIZARRY Facility:[facility] Start: 02-15-2022 Encounter for genera l adult medical examination without abnormal findings DR SON IRIZARRY [facility] Start: 02-09-2022 End: 02-10-[address] SON IRIZARRY Facility:[facility] Start: 02-09-2022 End: 02-10-2022 Encounter for general adult medical examination without abnormal findings DR SON IRIZARRY Facility:[facility] Start: 12-07-2021 End: 12-08-2021 ambulatory Rachelle Reyes. Nahid Facility:[facility] Start: 12-07-2021 End: 12-07-2021 Patient encounter procedure Rachelle M. Lue [facility] Start: 10-09-2021 End: 10-10-2021 ambulatory RACHELLE M LUE . Facility:[facility] Start: 06-19-2021 End: 06-19-2021 Patient encounter procedure Rachelle M. Lue [facility] Start: 05-03-2017 End: 05-04-2017 Evaluation and management of inpatient Family Physician Unavailable Facility:[facility] Procedures Date Procedure Procedure Detail Performing Clinician [...] Activity Detail Author Start: 06-05-2023 Patient referral [facility] Work Phone: Patient referral [facility] Work Phone: Immunizations Immunization Date Immunization Notes Care Provider Rossi bourgeois NEGATED: Highlighted row has not occurred!03-18-2019 influenza virus vaccine, live, attenuated, for intranasal use Rachelle Whitfield [facility] Payers Date Payer Category Payer Private Health Insurance [id number] 1960 Self-pay [id number] 1960 Unknown [id number] 1959 Unknown [id number] 2.16.84 0.1.424608.3.579.2.593 1959 Unknown [id number] 2.16.84 0.1.052030.3.579.2.593 1959 Unknown [id number] 2.16.84 0.1.592551.3.579.2.593 1959 Unknown [id number] 2.16.84 0.1.730455.3.579.2.593 1959 Unknown [id number] 2.16.84 0.1.410094.3.579.2.593 1959 Unknown [id number] 2.16.84 0.1.873253.3.579.2.593 1959 Unknown [id number] 2.16.84 0.1.990366.3.579.2.593 1959 Unknown [id number] 2.16.84 0.1.961793.3.579.2.593 1959 Unknown [id number] 2.16.84 0.1.432200.3.579.2.593 1959 Unknown [id number] 2.16.84 0.1.318747.3.579.2.593 1959 Unknown [id number] 2.16.84 0.1.980515.3.579.2.593 1959 Unknown [id number] 2.16.8 40.1.794217.3.579.2.727 1959 Unknown [id number] 2.16.8 40.1.484950.3.579.2.727 1959 Unknown [id number] 2.16.8 40.1.517786.3.579.2.1286 1959 Unknown [id number] 2.16.8 40.1.523721.3.579.2.1286 1959 Unknown [id number] 2.16.8 40.1.443851.3.579.2.1286 1959 Unknown [id number] 2.16.8 40.1.299025.3.579.2.1286 1959 Unknown [id number] 2.16.8 40.1.536559.3.579.2.1286 1959 Unknown [id number] 2.16.8 40.1.034209.3.579.2.1286 1959 Unknown [id number] 2.16.84 0.1.209235.3.579.2.1259 1959 Unknown [id number] 2.16.84 0.1.434543.3.579.2.1259 1959 Unknown [id number] 2.16.84 0.1.236532.3.579.2.1259 1959 Unknown [id number] 2.16.84 0.1.528114.3.579.2.9 1959 Unknown [id number] 2.16.84 0.1.281815.3.579.2.1259 1959 Unknown [id number] 2.16.84 0.1.159676.3.579.2.1259 1959 Unknown [id number] 2.16.84 0.1.935812.3.579.2.9 1959 Unknown [id number] 2.16.84 0.1.768414.3.579.2.1259 1959 Unknown [id number] 2.16.84 0.1.331531.3.579.2.1259 1959 Unknown [id number] 2.16.84 0.1.108906.3.579.2.1259 1959 Unknown [id number] 2.16.84 0.1.816938.3.579.2.1259 1959 Unknown [id number] 2.16.84 0.1.981452.3.579.2.1259 1959 Unknown [id number] 2.16.840 .1.188975.3.579.2.1259 Self-pay Self Pay [id number] Social History Date Type Detail Facility Start: 02-05-2017 End: 06-19-2021 Tobacco smoking status Ex-smoker (finding) [facility] Sex Assigned At Female [facility] Start: 1960 Sex Assigned At Female F [facility] Functional Status Date Assessment Result Facility 12-07-2021 Functional Status N/A [facility] Clinical Notes 06-19-2021 to 08-07-2023 Note Date & Type Note Facility 08-07-2023 Note [facility] Subjective Pam Snow is a 63 y.o. year old female patient being seen for CAD, statin intolerance, and stable angina. She needs cleared for shoulder surgery, scheduled 08/[address] Raya. She had EKG last week at [facility]. 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 Allergies Allergies Allergen Reactions Glbgbpb-Mit-Pfe Reductase Inhibitors Unknown Medications Current Outpatient Medications: aspirin 81 mg EC tablet, Take 81 mg by mouth in the morning., Disp: , Rfl: buPROPion XL (Wellbutrin XL) 300 mg 24 hr tablet, , Disp: , Rfl: cyanocobalamin (Vitamin B-12) 1,000 mcg/mL injection, , Disp: , Rfl: rdtndrlrcnn-yghobfjtk-iunlefpm (Trelegy Ellipta) 100-62.5-25 mcg blister with device, 1 puff 1 (one) time each day at the same time., Disp: , Rfl: hydroCHLOROthiazide (HYDRODiuril) 25 mg ta (more content not included)... [facility] 01-30-2023 Note Currently treated wi th praluent injection [facility] 01-30-2023 Note Coronary artery dise ase is stable Continue GDMT- ASA, praluent continue risk factor modifications- heart healthy diet, regular exercise as tolerated and continue all medications. [facility] 01-30-2023 Note Hypertension is curr ently well controlled 116/76 Continue all medications- hydrochlorothiazide [facility] 01-30-2023 Note Lipid abnormalities are stable with praluent use r/t her being intolerant of statins and zetia. She is to send most recent lipid level [facility] 01-30-2023 Note Denied any angina since last vis it [facility] 01-30-2023 Note Patient here for 3 m o follow up CAD, hypertension, and hyperlipidemia. Denies chest pain, SOB, lightheadedness, and palpitations. Review of Systems Respiratory: Positive for cough. All other systems reviewed and are negative. [facility] 01-30-2023 Note [facility] CARDIOLOGY PROGR ESS NOTE [...] She did see Dr. Nicholson and an switch box installer recently. Hasn't smoked since 2008. She was unable to tolerate Zetia and pravastatin that Dr. Mcnamara started her on in May 2022. Previous HPI-- Currently she is very concerned about her family h/o CAD/CHF/and valvular disease. States her brother passed 2 years ago s/p ME- but admits that he was 100pounds overweight, [...] Former BSA 1.8 m??? Allergies Allergen Reactions Agehwnz-Noq-Cql Reductase Inhibitors Unknown Medications: Current Outpatient Medications on File Prior to Visit Medication Sig Dispense Refill aspirin 81 mg EC tablet Take 81 mg by mouth in the morning. 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 [facility] 11-02-2022 Note Telephone visit for 3 mo follow up lipid panel. Praluent was doubled at last visit in July 2022. Review of Systems Cardiovascular: Positive for dyspnea on exertion. Respiratory: Positive for cough. All other systems reviewed and are negative. [facility] 11-02-2022 Note Date of phone call: 11/02/2022 Total time spent in Medical Discussion: 30 minutes. Total 30 minutes The visit was initiated by the patient and conducted [id number] with use of audio-only real time telephone communication between patient and provider for a virtual visit. Verbal consent to provide and bill for this service was obtained on 11/02/2022. [facility] CARDIOLOGY PROGRESS NOTE Pam Snow is [...] Vitals Smoking Status Former Allergies Allergen Reactions Gcyrrpw-Vdq-Uyl Reductase Inhibitors Unknown Medications: Current Outpatient Medications on File Prior to Visit Medication Sig Dispense Refill aspirin 81 mg EC tablet Take 81 mg by mouth in the morning. 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 [address] 11-02-2022 Note Lipid abnormalities remain elevated with increased dose of praulent 150 mg subcutaneous States that she is returning to regular exercise and vegan diet. Will D/W Dr Mcnamara-interventionalist about how to proceed [facility] 11-02-2022 Note Coronary artery dise ase is stable without any concerning or limiting symptoms. Continue ASA, praluent Continue GDMT continue risk factor modifications- heart healthy diet, regular exercise as tolerated and continue all medications. [facility] 12-07-2021 Hospital Discharge instructions Patient Education 12/07/2021 15:35:55 Kidney Stones, Lxyt-rz-Dhuh Kidney Stones Kidney stones are rock-like masses [...] Follow these instructions at home: Medicines Take zlvj-tch-wxocfrk and prescription medicines only as told by [...] 08/13/2008 Document Revised: 07/14/2019 Document Reviewed: 07/14/2019 Global [employer] Patient Education 2020 [employer]. Follow Up Care 06/19/2021 15:23:52 With:Nahid KELLY, WILLOW Little, URO Address: When: Unknown [facility] 06-19-2021 Hospital Discharge instructions Patient Education 06/19/2021 [...] include: ?Spinach. ?Rhubarb. ?Beets. ?Potato chips and austrian fries. ?Nuts. If you regularly take a diuretic medicine, make sure to eat at least 1 2 fruits or vegetables high in potassium each day. These include: ?Avocado. ?Banana. ?[place], prune, carrot, or tomato juice. ?Baked potato. [...] Casseroles. Pizza. Lasagna. Frozen meals. Potato chips. [place] Islander fries. Summary You can reduce your risk [...] 06/22/2011 Document Revised: 06/17/2019 Document Reviewed: 02/05/2017 Global Filmdemic Patient Education 2020 [employer]. Follow Up Care 05/15/2021 15:10:22 With:Nahid KELLY, Rachelle Monroe, CHRISTIANL, URO Address: [place] [address] [address]- When:09/18/2021 Comments:w/24hr urine [facility] Evaluation + Plan note Future Appointments Appointment Date:10/02/2021 03:15:00 PM Scheduled Provider:Rachelle Whitfield MD Location:[facility] Appointment Type:URO Office Visit [facility] Evaluation + Plan note Future Appointments Appointment Date:06/07/2022 03:15:00 PM Scheduled Provider:Rachelle Whitfield MD Location:[facility] Appointment Type:URO Office Visit [facility] Evaluation note Diagnosis Onset Date ASHD (arteriosclerotic heart disease) acute Chronic bronchitis, simple a cute Elevated cholesterol acute GERD (gastroesophageal reflux disease) acute Hypertension acute Screening for colon cancer n oneactive Screening mammogram for breast cancer noneactive Wellness examination noneact yudelka [facility] Work Phone: Evaluation note* Diagnosis Onset [...] acute Preop exam for internal medicine noneactive [facility] Work Phone: Hospital course Narrative No data available for this section [facility] Progress note No data available for this section [facility] Summary Purpose Family History No Family History [...] Wellness examination Chief Complaint Wellness pre op [facility] [place] [facility] Reason for Visit ASHD (arteriosclerot ic heart disease) Chronic bronchitis, simple Elevated cholesterol GERD (gastroesophageal reflux disease) Hypertension Screening for colon cancer Screening mammogram for breast cancer Wellness examination ASHD (arteriosclerotic heart disease) Chronic bronchitis, simple Elevated cholesterol Hypertension Preop exam for internal medicine Additional Source Comments INFORMATION SOURCE (unrecogn ized section and content) DATE CREATED AUTHOR 08/30/2017 [facility] DATE CREATED AUTHOR AUTHOR'S ORGANIZ ATION 07/07/2022 Johnnie Bingham [facility] DATE CREATED AUTHOR AUTHOR'S ORGANIZ ATION 09/26/2022 [facility] DATE CREATED AUTHOR AUTHOR'S ORGANIZ ATION 08/08/2023 [facility] DATE CREATED AUTHOR AUTHOR'S ORGANIZ ATION 08/29/2023 [facility] DATE CREATED AUTHOR AUTHOR'S ORGANIZ ATION 10/02/2023 [facility] dical Specialists EPIC Care Team (unrecognized [...] BE BASED ON THE PRIMARY CLINICAL RECORDS. [facility] [employer] [facility]. provides no warranty or guarantee of the accuracy or completeness of information in this document.
== END 2023-10-14 09:15 | disposition home or self-care (01) ==
LOC: MAMMO 09:14
PROVIDERS: PCP Internal Medicine; Visit Provider Obstetrics & Gynecology
DX: Z12.31 Encounter for screening mammogram for malignant neoplasm of breast (principal); Z78.0 Asymptomatic menopausal state; Z80.1 Family history of malignant neoplasm of trachea, bronchus and lung; M85.80 Other specified disorders of bone density and structure, unspecified site
CPT/HCPCS: 77063; 77067; 77080

== ENCOUNTER 2023-11-19 07:18 | Outpatient (OUT) | payer OTHER, SELFPAY ==
--- OUTSIDE RECORDS SUMMARY | 2023-11-19 07:23 | XMS_ITS | CCD ---
Author Organization [facility] Care Team Providers Care Video Games Storywriter Name Role Phone Unavailable, Family Physician Unavailable Un available Unavailable, Family Physician Unavailable Un available Candice Torres Unavailable Unavailable Candice Torres Unavailable Unavailable SON IRIZARRY Primary Care Physician [phone] LUE .RACHELLE Consulting Unavailable LUE ., RACHELLE [...] Attending Unavailable Nahid, Rachelle Monroe Attending Unavailable WILIAM, KELLIE Attending Unavailable WILIAM, [...] Referring Unavailable JOSEPHINE, LORRAINE Pratt Attending Unavailable APLING, RUFINO Corrales Attending Unavailable DALE WILSON Attending Unavailable APLING, RUFINO Corrales Attending Unavailable NADIA GILL Attending Unavail able APLING, RUFINO Corrales Referring Unavailable Allergies Allergy Classification Reported Allergen(s) Allergy Type Date of Onset Reaction(s) Facility (3 sources) Hmg-Coa Reductase Inhibitors (Statins); Translations: [statins] Drug allergy Unknown (qualifier value) [facility] (4 sources) black walnut pollen extract; Translations: [TUFBEHO-NLM-OEU REDUCTASE INHIBITORS] Drug Allergy 4 [facility] Repository Medications Current Medications Medication Drug Class(es) Dates Sig (Normalized) Sig (Original) [id number] 200 actuat albuterol 0.09 mg/actuat metered dose [...] PO Twice daily June 04, 2023 12:00am Frzihcihxwk-Hfiuizabz-Qa lanter (2 sources) Anticholinergi c, Corticosteroid , beta2-Adrenerg ic Agonist Start: 06-04-2023 Gxvpeqsbkqo-Igtrzuobx-L ilanter (Trelegy Ellipta) 100-62.5-25 mcg blister with [...] BID, # 180 tab(s), Refills(s) 3, Pharmacy: [facility], 162, cm, 03/16/20 8:23:00 EST, [...] disease (15 sources) Atherosclerotic heart disease of [place] coronary artery without angina pectoris; Translations: [Coronary [...] Range Facility Office Visiton 08-07-2023 Follow-up visit [id number] Kell Snow 1960 F Date Provider Department Center 08/07/2023 BRANDT BENJAMIN SANJANA [facility] Family History Problem Relation Age of Onset Other Mother Coronary artery disease Sister Peripheral vascular disease Sister Coronary artery disease Brother Heart failure Brother Atrial fibrillation Brother Family Status - Relation Status Age at Mother Sister Brother Level of Service:54731 AR OFFICE/OUTPATIENT ESTABLISHED MOD MDM 30 MIN Normal [...] Basophils (Bld) [#/Vol] 0.1 10 3/uL 0.0-0.1 [facility] Basophils/100 WBC Auto (Bld) on 05-31-2023 Basophils/100 WBC (Bld) 2.1 % 0.2-2.0 [facility] Cholesterol in LDL Calc [Mas s/Vol]on 05-31-2023 Cholesterol in LDL [Mass/Vol] 204.0 mg/dL [facility] Comment on above: <100 mg/dl [id number] 0-129 mg/dl NEAR OR ABOVE HRVATOK172-703 mg/dl BORDERLINE SNSD831-305 mg/dl HIGH>190 mg/dl VERY HIGH Cholesterol in VLDL Calc [Ma ss/Vol]on 05-31-2023 Cholesterol in VLDL [Mass/Vol] 13.2 mg/dL [facility] Eosinophils/100 WBC Auto (Bl d)on 05-31-2023 Eosinophils/100 WBC (Bld) 5.2 % 0.9-7.0 [facility] Erythrocyte distribution wid th Auto (RBC) [Ratio]on 05-31-2023 Erythrocyte distribution width (RBC) [Ratio] 12.9 % 11.0-15.0 [facility] Estimated glomerular filtrat ion rate (GFR) non- Americanon 05-31-2023 GFR/1.73 sq M.predicted among non-blacks MDRD (S/P/Bld) [Vol rate/Area] mL/min/{1.73_m2} >=60 [facility] Globulin Calc (S) [Mass/Vol] on 05-31-2023 Globulin (S) [Mass/Vol] 3.6 g/dL [facility] Hematocrit Auto (Bld) [Volum e fraction]on 05-31-2023 Hematocrit (Bld) [Volume fraction] 44.0 % 36.0-48.0 [facility] Hemoglobin [Mass/volume] in Bloodon 05-31-2023 Hemoglobin (Bld) [Mass/Vol] 14.4 g/dL 12.0-16.0 [facility] Laboratory - Chemistry and C hemistry - challengeon 05-31-2023 Albumin [Mass/Vol] 3.4 g/dL 3.4-5.0 [facility] ALP [Catalytic activity/Vol] 78 U/L 46-116 [facility] ALT [Catalytic activity/Vol] 51 U/L 14-59 [facility] AST [Catalytic activity/Vol] 28 U/L 15-37 [facility] Bilirubin [Mass/Vol] 0.5 mg/dL 0.2-1.0 [facility] Calcium [Mass/Vol] 9.1 mg/dL 8.5-10.1 [facility] Chloride [Moles/Vol] 102 mmol/L 98-107 [facility] Cholesterol [Mass/Vol] 277 mg/dL <=200 [facility] Cholesterol in HDL [Mass/Vol] 60 mg/dL 40-60 [facility] Comment on above: > or =60 mg/dl - LOW CARDIOVASCULAR RISK<40 mg/dl - HIGH CARDIOVASCULAR RISK CO2 [Moles/Vol] 29.1 mmol/L 21.0-32.0 [facility] Creatinine [Mass/Vol] 0.76 mg/dL 0.55-1.02 [facility] GFR/1.73 sq M.predicted MDRD (S/P/Bld) [Vol rate/Area] mL/min/{1.73_m2} >=60 [facility] Glucose [Mass/Vol] 102 mg/dL 74-106 [facility] Potassium [Moles/Vol] 3.8 mmol/L 3.5-5.1 [facility] Protein [Mass/Vol] 7.0 g/dL 6.4-8.2 [facility] Sodium [Moles/Vol] 141 mmol/L 136-145 [facility] Triglyceride [Mass/Vol] 66 mg/dL <=150 [facility] Urea nitrogen [Mass/Vol] 21.0 mg/dL 7.0-18.0 [facility] Urea nitrogen/Creatinine [Mass ratio] 27.6 mg/mg [facility] Laboratory - Hematology and Cell countson 05-31-2023 Immature granulocytes/100 WBC (Bld) 0.2 % 0.0-0.5 [facility] Leukocytes [#/volume] correc johanna for nucleated erythrocytes in Blood by Automated counon 05-31-2023 WBC corrected for nucl RBC Auto (Bld) [#/Vol] 5.6 10 3/uL 4.0-11.0 [facility] Lymphocytes Auto (Bld) [#/Vo l]on 05-31-2023 Lymphocytes (Bld) [#/Vol] 1.7 10 3/uL 1.2-3.8 [facility] Lymphocytes/100 WBC Auto (Bl d)on 05-31-2023 Lymphocytes/100 WBC (Bld) 31.0 % 20.5-60.0 [facility] MCH Auto (RBC) [Entitic mass ]on 05-31-2023 MCH (RBC) [Entitic mass] 28.8 pg 26.7-34.0 [facility] MCHC Auto (RBC) [Mass/Vol]on 05-31-2023 MCHC (RBC) [Mass/Vol] 32.7 g/dL 29.9-35.2 [facility] MCV Auto (RBC) [Entitic vol] on 05-31-2023 MCV (RBC) [Entitic vol] 88.0 fL 81.0-99.0 [facility] Monocytes Auto (Bld) [#/Vol] on 05-31-2023 Monocytes (Bld) [#/Vol] 0.8 10 3/uL 0.3-0.8 [facility] Monocytes/100 WBC Auto (Bld) on 05-31-2023 Monocytes/100 WBC (Bld) 13.4 % 1.7-12.0 [facility] Neutrophils Auto (Bld) [#/Vo l]on 05-31-2023 Neutrophils (Bld) [#/Vol] 2.7 10 3/uL 1.4-6.5 [facility] Neutrophils/100 WBC Auto (Bl d)on 05-31-2023 Neutrophils/100 WBC (Bld) 48.1 % 43.0-75.0 [facility] No Panel Informationon 05-30 Eosinophils # (Auto) 0.3 10 3/uL 0.0-0.7 [facility] Immature Granulocyte # (Auto) 0.01 10 3/uL 0.00-0.03 [facility] Platelet mean volume Auto (B ld) [Entitic vol]on 05-31-2023 Platelet mean volume (Bld) [Entitic vol] 10.7 fL 9.5-13.5 [facility] Platelets Auto (Bld) [#/Vol] on 05-31-2023 Platelets (Bld) [#/Vol] 305 10 3/uL 150-450 [facility] RBC Auto (Bld) [#/Vol]on RBC (Bld) [#/Vol] 5.00 10 6/uL 4.20-5.40 [facility] Serum or plasma albumin/glob ulin mass ratioon 05-31-2023 Albumin/Globulin [Mass ratio] 0.9 {ratio} [facility] Serum or plasma anion gap de terminationon 05-31-2023 Anion gap [Moles/Vol] 13.7 mmol/L [facility] Serum or plasma total choles terol/high density lipoprotein (HDL) cholesterol mass robyn 05-31-2023 Cholesterol.total/Ch olesterol in HDL [Mass ratio] 4.6 {ratio} [facility] Comment on above: 3.3 - 4.4 LOW RISK4. 4 - 7.1 AVERAGE RISK7.1 - 11.0 MODERATE RISK>11.0 HIGH RISK Office Visiton 01-30-2023 Follow-up visit [id number] Kell Snow enrrique Azevedo 1960 Date Provider Department Center 01/30/2023 KELLIE RIVERA SANJANA [facility] Family History Problem Relation Age of Onset Other Mother Coronary artery disease Sister Peripheral vascular disease Sister Coronary artery disease Brother Heart failure Brother Atrial fibrillation Brother Family Status - Relation Status Age at Mother Sister Brother Level of Service:01324 AR OFFICE/OUTPATIENT ESTABLISHED LOW MDM 20-29 MIN Normal [facility] Telemedicineon 11-02-2022 Telemedicine [id number] Kell Snow enrrique Azevedo 1960 Date Provider Department Center 11/02/2022 KELLIE RIVERA Family History Problem Relation Age of Onset Other Mother Coronary artery disease Sister Peripheral vascular disease Sister Coronary artery disease Brother Heart failure Brother Atrial fibrillation Brother Family Status - Relation Status Age at Mother Sister Brother Level of Service:79460 AR PHYS/QHP TELEPHONE EVALUATION 21-30 MIN Normal [facility] Reminderson 09-25-2022 Reminders - From: Yolanda Mauro To: HELIO - Recalls Lue; Sent: 12/07/2021 15:46:40 EDT Show up: 04/08/2022 14:46:00 EST Subject: JAYDA prior to 6 mos Due Date/Time: 05/08/2022 14:46:00 EST Reminder Message Patient needs JAYDA prior to 6 month appointment. wants JAYDA done at [facility]. orders faxed to [facility] patients appt was rescheduled to 08/20/22. pt aware to have testing done prior. Patient cancelled august appointment and has not rescheduled. diagnosis is not trackable Normal [facility] CT LUNG CANCER SCREENINGon 0 06-30-2022 CT [...] by: HAIR DIETZ Date: 2022-06-30 14:46 Normal [facility] STRESS/REST MULTIon 06-21 NM STRESS/REST MULTI Patient: SUMMER SNOW Exam Date: 06/21/2022 : 1960 Gender:F Ordering : DR BRANDT MCNAMARA M.D. Admission #: [id number] Family : DR SON IRIZARRY D.O. Order #: [id number] CLICK HERE TO VIEW EXAM RADIOLOGY REPORT [...] Dietz MD on 06/25/2022 at 09:33 Normal [facility] Lab Reportson 06-01-2022 Lab Reports [id number]#[id number]:127 Normal [facility] ECHOCARDIO M/2D COMPLETEon 0 05-31-2022 ECHOCARDIO M/2D COMPLETE Patient: PAM SNOW Exam Date: 05/31/2022 : 1960 Gender:F Ordering : DR BRANDT MCNAMARA M.D. Admission #: [id number] Family : Order #: [id number] CLICK HERE TO VIEW EXAM ECHOCARDIOGRAM REPORT [...] Mcnamara M.D. on 05/31/2022 at 22:12 Normal [facility] Provider Letter [facility]05-29 Provider Letter [facility] May 29, 2022 PAM SNOW [address] [place] [address] QUE SNOWA S 1960 Dear Pam Snow , We have been trying to reach you with no success. It is important that you return our call upon receiving this letter. Also, at the time of your call, please provide us with your current information. Thank you for your prompt attention to this matter. Sincerely, [facility] [address] [place] [address], [address] [facility] Provider Letter [facility] May 29, 2022 PAM SNOW [address] [facility] [place] [address] QUE SNOWA S 1960 Dear Pam Snow , We have been trying to reach you with no success. It is important that you return our call regarding your _ upon receiving this letter. Also, at the time of your call, please provide us with your current information. Thank you for your prompt attention to this matter. Sincerely, [facility] [address] [place] [address], [address] [facility] Lab Reportson 05-22-2022 Lab Reports [id number]#[id number]:12 7 [facility] Lab Reports [id number]:12 7 [facility] PROF CHEM 8 (BAS METB)on Anion gap [Moles/Vol] 11.0 mmol/L Normal [facility] Comment on above: Performed By: #### C KATYA, NA, CA, URIC, BUN, K, CO2, CL #### [facility] [address] [address] [address] Cesar Francis Calcium [Mass/Vol] 9.4 mg/dL Normal 8.5-10.1 [facility] Comment on above: Performed By: #### C KATYA, NA, CA, URIC, BUN, K, CO2, CL #### [facility] [address] [address] [address] Cesar Francis Chloride [Moles/Vol] 101 mmol/L Normal 98-107 [facility] Comment on above: Performed By: #### C KATYA, NA, CA, URIC, BUN, K, CO2, CL #### [facility] [address] [address] [address] Cesar Farncis CO2 [Moles/Vol] 28.3 mmol/L Normal 21.0-32.0 [facility] Comment on above: Performed By: #### C KATYA, NA, CA, URIC, BUN, K, CO2, CL #### [facility] [address] [address] [address] Cesar Francis Creatinine [Mass/Vol] 0.72 mg/dL Normal 0.55-1.02 [facility] Comment on above: Performed By: #### C KATYA, NA, CA, URIC, BUN, K, CO2, CL #### [facility] [address] [address] [address] Cesar Francis EGFR-AF FILIPINO >60 Normal >=60 [facility] Comment on above: Performed By: #### C KATYA, NA, CA, URIC, BUN, K, CO2, CL #### [facility] [address] [address] [address] Cesar Francis EGFR-NON AF FILIPINO >60 Normal >=60 [facility] Comment on above: Performed By: #### C KATYA, NA, CA, URIC, BUN, K, CO2, CL #### [facility] [address] [address] [address] Cesar Francis Glucose [Mass/Vol] 92 mg/dL Normal 74-106 [facility] Comment on above: Performed By: #### C KATYA, NA, CA, URIC, BUN, K, CO2, CL #### [facility] [address] [address] [address] Cesar Francis Potassium [Moles/Vol] 3.3 mmol/L Critically low 3.5-5.1 [facility] Comment on above: Performed By: #### C KATYA, NA, CA, URIC, BUN, K, CO2, CL #### [facility] [address] [address] [address] Cesar Francis Sodium [Moles/Vol] 137 mmol/L Normal 136-145 [facility] Comment on above: Performed By: #### C KATYA, NA, CA, URIC, BUN, K, CO2, CL #### [facility] [address] [address] [address] Cesar Francis Urea nitrogen [Mass/Vol] 14.0 mg/dL Normal 7.0-18.0 [facility] Comment on above: Performed By: #### C KATYA, NA, CA, URIC, BUN, K, CO2, CL #### [facility] [address] [address] [address] Cesar Francis Urea nitrogen/Creatinine [Mass ratio] 19.4 mg/mg Normal [facility] Comment on above: Performed By: #### C KATYA, NA, CA, URIC, BUN, K, CO2, CL #### [facility] [address] [address] [address] Cesar Francis Reminderson 05-22-2022 Reminders - From: Amisha Scott To: HELIO - Vel Whitfield; Sent: 12/07/2021 15:54:24 EDT Show up: 04/20/2022 15:53:00 EST Subject: JAYDA needed May 2022 Due Date/Time: 06/07/2022 15:53:00 EDT Reminder/Recall This pt needs Renal US prior to 06/07/[address] Whitfield in [place] - pt uses [facility]-pls verify this with pt called patient to verify if she would like orders sent to [facility], left msg on voicemail for her to call office. Patient called back I will send order over to [facility]. Normal [facility] PTH INTACTon 05-19-2022 PTH, Intact 22 pg/mL Normal 15-65 [facility] Comment on above: Performed By: #### C KATYA, NA, CA, URIC, BUN, K, CO2, CL #### [facility] [address] [place] [address] Dr. Cesar Francis [facility] 05-18-2022 Urea nitrogen [Mass/Vol] 16.0 mg/dL Normal 7.0-18.0 [facility] Comment on above: Performed By: #### C KATYA, NA, CA, URIC, BUN, K, CO2, CL #### [facility] [address] [place] [address] Dr. Cesar Francis CALCIUMon 05-18-2022 Calcium [Mass/Vol] 9.2 mg/dL Normal 8.5-10.1 [facility] Comment on above: Performed By: #### C KATYA, NA, CA, URIC, BUN, K, CO2, CL #### [facility] [address] [address] [address] Cesar Francis CHLORIDEon 05-18-2022 Chloride [Moles/Vol] 104 mmol/L Normal 98-107 [facility] Comment on above: Performed By: #### C KATYA, NA, CA, URIC, BUN, K, CO2, CL #### [facility] [address] [place] [address] Dr. Cesar Francis CO2on 05-18-2022 CO2 [Moles/Vol] 28.4 mmol/L Normal 21.0-32.0 [facility] Comment on above: Performed By: #### C KATYA, NA, CA, URIC, BUN, K, CO2, CL #### [facility] [address] [address] [address] Cesar Francis CREATININEon 05-18-2022 Creatinine [Mass/Vol] 0.63 mg/dL Normal 0.55-1.02 [facility] Comment on above: Performed By: #### C KATYA, NA, CA, URIC, BUN, K, CO2, CL #### [facility] [address] [address] [address] Cesar Francis EGFR-AF FILIPINO >60 Normal >=60 [facility] Comment on above: Performed By: #### C KATYA, NA, CA, URIC, BUN, K, CO2, CL #### [facility] [address] [address] [address] Cesar Francis EGFR-NON AF FILIPINO >60 Normal >=60 [facility] Comment on above: Performed By: #### C KATYA, NA, CA, URIC, BUN, K, CO2, CL #### [facility] [address] [address] [address] Cesar Francis MG MAMM SCREEN 3D ISAIAH CADon 05-18-2022 MG MAMM SCREEN 3D ISAIAH CAD Patient: PAM SNOW Exam Date: 05/18/2022 : 1960 Gender:F Ordering : DR DALE WILSON . Admission #: [id number] Family : RACHELLE WHITFIELD . Order #: [id number] CLICK HERE TO VIEW EXAM RADIOLOGY REPORT [...] lung cancer at age 54. LOCATION: [facility] BREAST COMPOSITION: Almost entirely fatty. FINDINGS: [...] Dietz MD on 05/18/2022 at 09:16 Normal [facility] NAon 05-18-2022 Sodium [Moles/Vol] 140 mmol/L Normal 136-145 [facility] Comment on above: Performed By: #### C KATYA, NA, CA, URIC, BUN, K, CO2, CL #### [facility] [address] [address] [address] Cesar Francis POTASSIUMon 05-18-2022 Potassium [Moles/Vol] 2.7 mmol/L Critically low 3.5-5.1 [facility] Comment on above: Performed By: #### C KATYA, NA, CA, URIC, BUN, K, CO2, CL #### [facility] [address] [address] [address] Cesar Francis URIC ACID SERUMon 05-18-2022 Urate [Mass/Vol] 6.0 mg/dL Normal 2.6-6.0 [facility] Comment on above: Performed By: #### C KATYA, NA, CA, URIC, BUN, K, CO2, CL #### [facility] [address] [place] [address] Dr. Cesar Francis US KIDNEYSon 05-18-2022 US KIDNEYS EXAMINATION: [facility]: Kidney stone COMPARISON: No relevant comparison [...] by: LIZET MALCOLM Date: 2022-05-18 08:47 Normal [facility] Formson 04-17-2022 Forms [id number]:12 7 Normal [facility] Reminderson 04-17-2022 Reminders - From: Yolanda Mauro To: Cristiane Grier; Sent: 12/07/2021 15:51:13 EDT Show up: 04/08/2022 14:51:00 EST Subject: LithoLink Due Date/Time: 05/08/2022 14:51:00 EST Reminder Message Patient needs LithoLink mailed to her prior to 6 month appointment. Litholink order faxed 04/17/22 Normal [facility] XR CHEST 2 Von 04-17-2022 XR CHEST [...] CHERRI HAMILTON Date: 2022-04-17 17:56 Normal [facility] CBC AUTO DIFFon 02-09-2022 BASO # 0.1 103/ul Normal 0.0-0.1 [facility] Comment on above: Performed By: #### C KATYA, NA, CA, URIC, BUN, K, CO2, CL #### [facility] [address] [address] [address] Cesar Francis Basophils/100 WBC (Bld) 2.3 % Critically high 0.2-2.0 [facility] Comment on above: Performed By: #### C KATYA, NA, CA, URIC, BUN, K, CO2, CL #### [facility] [address] [address] [address] Cesar Francis EO # 0.3 103/ul Normal 0.0-0.7 [facility] Comment on above: Performed By: #### C KATYA, NA, CA, URIC, BUN, K, CO2, CL #### [facility] [address] [place] [address] Dr. Cesar Francis Eosinophils/100 WBC (Bld) 4.1 % Normal 0.9-7.0 [facility] Comment on above: Performed By: #### C KATYA, NA, CA, URIC, BUN, K, CO2, CL #### [facility] [address] [place] [address] Dr. Cesar Francis Erythrocyte distribution width (RBC) [Ratio] 12.8 % Normal 11.0-15.0 [facility] Comment on above: Performed By: #### C KATYA, NA, CA, URIC, BUN, K, CO2, CL #### [facility] [address] [place] [address] Dr. Cesar Francis Hematocrit (Bld) [Volume fraction] 45.4 % Normal 36.0-48.0 [facility] Comment on above: Performed By: #### C KATYA, NA, CA, URIC, BUN, K, CO2, CL #### [facility] [address] [place] [address] Dr. Cesar Francis Hemoglobin (Bld) [Mass/Vol] 15.6 g/dL Normal 12.0-16.0 [facility] Comment on above: Performed By: #### C KATYA, NA, CA, URIC, BUN, K, CO2, CL #### [facility] [address] [place] [address] Dr. Cesar Francis IG # 0.01 10e3/ul Normal 0.00-0.03 [facility] Comment on above: Performed By: #### C KATYA, NA, CA, URIC, BUN, K, CO2, CL #### [facility] [address] [place] [address] Dr. Cesar Francis IG % 0.2 % Normal 0.0-0.5 [facility] Comment on above: Performed By: #### C KATYA, NA, CA, URIC, BUN, K, CO2, CL #### [facility] [address] [place] [address] Dr. Cesar Francis LYMPH # 1.6 103/ul Normal 1.2-3.8 [facility] Comment on above: Performed By: #### C KATYA, NA, CA, URIC, BUN, K, CO2, CL #### [facility] [address] [place] [address] Dr. Cesar Francis Lymphocytes/100 WBC (Bld) 26.2 % Normal 20.5-60.0 [facility] Comment on above: Performed By: #### C KATYA, NA, CA, URIC, BUN, K, CO2, CL #### [facility] [address] [place] [address] Dr. Cesar Francis MANUAL DIFF REQ NO Normal [facility] Comment on above: Performed By: #### C KATYA, NA, CA, URIC, BUN, K, CO2, CL #### [facility] [address] [place] [address] Dr. Cesar Francis MCH (RBC) [Entitic mass] 28.6 pg Normal 26.7-34.0 [facility] Comment on above: Performed By: #### C KATYA, NA, CA, URIC, BUN, K, CO2, CL #### [facility] [address] [place] [address] Dr. Cesar Francis MCHC (RBC) [Mass/Vol] 34.4 g/dL Normal 29.9-35.2 [facility] Comment on above: Performed By: #### C KATYA, NA, CA, URIC, BUN, K, CO2, CL #### [facility] [address] [place] [address] Dr. Cesar Francis MCV (RBC) [Entitic vol] 83.3 fL Normal 81.0-99.0 [facility] Comment on above: Performed By: #### C KATYA, NA, CA, URIC, BUN, K, CO2, CL #### [facility] [address] [place] [address] Dr. Cesar Francis MONO # 0.8 103/ul Normal 0.3-0.8 [facility] Comment on above: Performed By: #### C KATYA, NA, CA, URIC, BUN, K, CO2, CL #### [facility] [address] [place] [address] Dr. Cesar Francis Monocytes/100 WBC (Bld) 12.5 % Critically high 1.7-12.0 [facility] Comment on above: Performed By: #### C KATYA, NA, CA, URIC, BUN, K, CO2, CL #### [facility] [address] [place] [address] Dr. Cesar Francis NEUT # 3.3 103/ul Normal 1.4-6.5 [facility] Comment on above: Performed By: #### C KATYA, NA, CA, URIC, BUN, K, CO2, CL #### [facility] [address] [place] [address] Dr. Cesar Francis Neutrophils/100 WBC (Bld) 54.7 % Normal 43.0-75.0 [facility] Comment on above: Performed By: #### C KATYA, NA, CA, URIC, BUN, K, CO2, CL #### [facility] [address] [place] [address] Dr. Cesar Francis Platelet mean volume (Bld) [Entitic vol] 10.6 fL Normal 9.5-13.5 [facility] Comment on above: Performed By: #### C KATYA, NA, CA, URIC, BUN, K, CO2, CL #### [facility] [address] [place] [address] Dr. Cesar Francis PLT 275 103/ul Normal 150-450 [facility] Comment on above: Performed By: #### C KATYA, NA, CA, URIC, BUN, K, CO2, CL #### [facility] [address] [place] [address] Dr. Cesar Francis RBC 5.45 106/ul Critically high 4.20-5.40 [facility] Comment on above: Performed By: #### C KATYA, NA, CA, URIC, BUN, K, CO2, CL #### [facility] [address] [address] [address] Cesar Francis WBC 6.1 103/ul Normal 4.0-11.0 [facility] Comment on above: Performed By: #### C KATYA, NA, CA, URIC, BUN, K, CO2, CL #### [facility] [address] [place] [address] Dr. Cesar Francis LIPID PROFILEon 02-09-2022 CHOL-HDL RATIO NORM SEE BELOW Normal [facility] Comment on above: Result Comment: 3.3 - 4.4 LOW RISK 4.4 - 7.1 AVERAGE RISK 7.1 - 11.0 MODERATE RISK >11.0 HIGH RISK Performed By: #### C KATYA, NA, CA, URIC, BUN, K, CO2, CL #### [facility] [address] [place] [address] Dr. Cesar Francis Cholesterol [Mass/Vol] 241 mg/dL Critically high <=200 [facility] Comment on above: Performed By: #### C KATYA, NA, CA, URIC, BUN, K, CO2, CL #### [facility] [address] [place] [address] Dr. Cesar Francis Cholesterol in HDL [Mass/Vol] 66 mg/dL Critically high 40-60 [facility] Comment on above: Performed By: #### C KATYA, NA, CA, URIC, BUN, K, CO2, CL #### [facility] [address] [place] [address] Dr. Cesar Francis Cholesterol in LDL [Mass/Vol] 156.0 mg/dL Normal [facility] Comment on above: Performed By: #### C KATYA, NA, CA, URIC, BUN, K, CO2, CL #### [facility] [address] [place] [address] Dr. Cesar Francis Cholesterol.total/Ch olesterol in HDL [Mass ratio] 3.7 {ratio} Normal [facility] Comment on above: Performed By: #### C KATYA, NA, CA, URIC, BUN, K, CO2, CL #### [facility] [address] [address] [address] Cesar Francis HDL NORMAL > or = 60 mg/dl - LO W CARDIOVASCULAR RISK <40 mg/dl - HIGH CARDIOVASCULAR RISK Normal [facility] Comment on above: Performed By: #### C KATYA, NA, CA, URIC, BUN, K, CO2, CL #### [facility] [address] [address] [address] Cesar Francis LDL CALC NORMAL SEE BELOW Normal [facility] Comment on above: Result Comment: <100 mg/dl OPTIMAL 100 - 129 mg/dl NEAR OR ABOVE OPTIMAL 130 - 159 mg/dl BORDERLINE HIGH 160 - 189 mg/dl HIGH >190 mg/dl VERY HIGH Performed By: #### C KATYA, NA, CA, URIC, BUN, K, CO2, CL #### [facility] [address] [place] [address] Dr. Cesar Francis Triglyceride [Mass/Vol] 95 mg/dL Normal <=150 [facility] Comment on above: Performed By: #### C KATYA, NA, CA, URIC, BUN, K, CO2, CL #### [facility] [address] [place] [address] Dr. Cesar Francis VLDL CALC 19.0 mg/dL Normal [facility] Comment on above: Performed By: #### C KATYA, NA, CA, URIC, BUN, K, CO2, CL #### [facility] [address] [place] [address] Dr. Cesar Francis PROF 14(COMP METB)on 022 Albumin [Mass/Vol] 3.6 g/dL Normal 3.4-5.0 [facility] Comment on above: Performed By: #### C KATYA, NA, CA, URIC, BUN, K, CO2, CL #### [facility] [address] [place] [address] Dr. Cesar Francis Albumin/Globulin [Mass ratio] 1.0 {ratio} Normal [facility] Comment on above: Performed By: #### C KATYA, NA, CA, URIC, BUN, K, CO2, CL #### [facility] [address] [place] [address] Dr. Cesar Francis ALP [Catalytic activity/Vol] 65 U/L Normal 46-116 [facility] Comment on above: Performed By: #### C KATYA, NA, CA, URIC, BUN, K, CO2, CL #### [facility] [address] [place] [address] Dr. Cesar Francis ALT [Catalytic activity/Vol] 31 U/L Normal 14-59 [facility] Comment on above: Performed By: #### C KATYA, NA, CA, URIC, BUN, K, CO2, CL #### [facility] [address] [place] [address] Dr. Cesar Francis Anion gap [Moles/Vol] 13.2 mmol/L Normal [facility] Comment on above: Performed By: #### C KATYA, NA, CA, URIC, BUN, K, CO2, CL #### [facility] [address] [place] [address] Dr. Cesar Francis AST [Catalytic activity/Vol] 21 U/L Normal 15-37 [facility] Comment on above: Performed By: #### C KATYA, NA, CA, URIC, BUN, K, CO2, CL #### [facility] [address] [place] [address] Dr. Cesar Francis Bilirubin [Mass/Vol] 0.5 mg/dL Normal 0.2-1.0 [facility] Comment on above: Performed By: #### C KATYA, NA, CA, URIC, BUN, K, CO2, CL #### [facility] [address] [place] [address] Dr. Cesar Francis Calcium [Mass/Vol] 9.0 mg/dL Normal 8.5-10.1 [facility] Comment on above: Performed By: #### C KATYA, NA, CA, URIC, BUN, K, CO2, CL #### [facility] [address] [place] [address] Dr. Cesar Francis Chloride [Moles/Vol] 101 mmol/L Normal 98-107 [facility] Comment on above: Performed By: #### C KATYA, NA, CA, URIC, BUN, K, CO2, CL #### [facility] [address] [address] [address] Cesar Francis CO2 [Moles/Vol] 29.5 mmol/L Normal 21.0-32.0 [facility] Comment on above: Performed By: #### C KATYA, NA, CA, URIC, BUN, K, CO2, CL #### [facility] [address] [address] [address] Cesar Francis Creatinine [Mass/Vol] 0.71 mg/dL Normal 0.55-1.02 [facility] Comment on above: Performed By: #### C KATYA, NA, CA, URIC, BUN, K, CO2, CL #### [facility] [address] [place] [address] Dr. Cesar Francis EGFR-AF FILIPINO >60 Normal >=60 [facility] Comment on above: Performed By: #### C KATYA, NA, CA, URIC, BUN, K, CO2, CL #### [facility] [address] [address] [address] Cesar Francis EGFR-NON AF FILIPINO >60 Normal >=60 [facility] Comment on above: Performed By: #### C KATYA, NA, CA, URIC, BUN, K, CO2, CL #### [facility] [address] [place] [address] Dr. Cesar Francis Globulin (S) [Mass/Vol] 3.5 g/dL Normal [facility] Comment on above: Performed By: #### C KATYA, NA, CA, URIC, BUN, K, CO2, CL #### [facility] [address] [place] [address] Dr. Cesar Francis Glucose [Mass/Vol] 102 mg/dL Normal 74-106 [facility] Comment on above: Performed By: #### C KATYA, NA, CA, URIC, BUN, K, CO2, CL #### [facility] [address] [place] [address] Dr. Cesar Francis Potassium [Moles/Vol] 3.7 mmol/L Normal 3.5-5.1 [facility] Comment on above: Performed By: #### C KATYA, NA, CA, URIC, BUN, K, CO2, CL #### [facility] [address] [address] [address] Cesar Francis Protein [Mass/Vol] 7.1 g/dL Normal 6.4-8.2 [facility] Comment on above: Performed By: #### C KATYA, NA, CA, URIC, BUN, K, CO2, CL #### [facility] [address] [address] [address] Cesar Francis Sodium [Moles/Vol] 140 mmol/L Normal 136-145 [facility] Comment on above: Performed By: #### C KATYA, NA, CA, URIC, BUN, K, CO2, CL #### [facility] [address] [address] [address] Cesar Francis Urea nitrogen [Mass/Vol] 28.0 mg/dL Critically high 7.0-18.0 [facility] Comment on above: Performed By: #### C KATYA, NA, CA, URIC, BUN, K, CO2, CL #### [facility] [address] [address] [address] Cesar Francis Urea nitrogen/Creatinine [Mass ratio] 39.4 mg/mg Normal [facility] Comment on above: Performed By: #### C KATYA, NA, CA, URIC, BUN, K, CO2, CL #### [facility] [address] [address] [address] Cesar Francis Screenson 12-08-2021 Screens [id number]:12 7 Normal [facility] Ambulatory Visit Summaryon 0 12-07-2021 Ambulatory Visit Summary PAM SNOW :1960 Visit Date:12/07/2021 Ambulatory Visit Instructions Your Diagnosis Kidney stone Tests Performed Urnls Dip Stick Auto w/o Microscopy POC [id number] XR Abdomen 1 View -- Results Pending -- Please visit your patient portal for your results or contact your primary care physician. Your Care Team Attending Physician - Rachelle Whitfield MD Primary Care Physician - RODRIGO ROSA SON This Is Your Medications List Contact prescribing [...] Rachelle Whitfield MD Where: [facility] Patient Educationon 12-08-19 22 Patient Education Urology [...] these instructions at home: Medicines ? Take kqhu-wht-kkvenvu and prescription medicines only as told by [...] 08/13/2008 Document Revised: 07/14/2019 Document Reviewed: 07/14/2019 [employer] Patient Education ? 2019 [employer] [facility] Urology Office/Clinic Noteon 12-07-2021 Urology Office/Clinic [...] mos KUB, JAYDA Patient Education Kidney Stones, Epaz-as-Bduv I, Yolanda Mauro, personally scribed for Dr. Whitfield on 12/07/2021 15:45:45. . Documentation recorded by the mabel, Iveth Mauro, accurately reflects the services(s) I [...] Cystoscopy (07/16/2011), Cysto (more content not included)... [facility] Comment on above: Result Comment: Elec tronically Signed By: Rachelle Whitfield MD\.br\Date and Time Signed: 12/07/21 16:44 EDT\.br\Electronically Co-Signed By: Yolanda Mauro.br\Date and Time Co-Signed: 12/07/21 15:46 EDT Lab Reportson 10-18-2021 Lab Reports [id number]:12 7 [facility] Lab Reportson 10-11-2021 Lab Reports [id number]:12 7 Normal [facility] Lab Reports [id number]:12 7 Normal [facility] PTH INTACTon 10-10-2021 PTH, Intact 13 pg/mL Critically low 15-65 [facility] Comment on above: Performed By: #### C KATYA, NA, CA, URIC, BUN, K, CO2, CL #### [facility] [address] [place] [address] Dr. Cesar Francis BUNon 10-09-2021 Urea nitrogen [Mass/Vol] 11.0 mg/dL Normal 7.0-18.0 [facility] Comment on above: Performed By: #### C KATYA, NA, CA, URIC, BUN, K, CO2, CL #### [facility] [address] [place] [address] Dr. Cesar Francis CALCIUMon 10-09-2021 Calcium [Mass/Vol] 9.2 mg/dL Normal 8.5-10.1 [facility] Comment on above: Performed By: #### C KATYA, NA, CA, URIC, BUN, K, CO2, CL #### [facility] [address] [place] [address] Dr. Cesar Francis CHLORIDEon 10-09-2021 Chloride [Moles/Vol] 104 mmol/L Normal 98-107 [facility] Comment on above: Performed By: #### C KATYA, NA, CA, URIC, BUN, K, CO2, CL #### [facility] [address] [place] [address] Dr. Cesar Francis CO2on 10-09-2021 CO2 [Moles/Vol] 28.5 mmol/L Normal 21.0-32.0 [facility] Comment on above: Performed By: #### C KATYA, NA, CA, URIC, BUN, K, CO2, CL #### [facility] [address] [place] [address] Dr. Cesar Francis CREATININEon 10-09-2021 Creatinine [Mass/Vol] 0.83 mg/dL Normal 0.55-1.02 [facility] Comment on above: Performed By: #### C KATYA, NA, CA, URIC, BUN, K, CO2, CL #### [facility] [address] [address] [address] Cesar Francis EGFR-AF FILIPINO >60 Normal >=60 [facility] Comment on above: Performed By: #### C KATYA, NA, CA, URIC, BUN, K, CO2, CL #### [facility] [address] [address] [address] Cesar Francis EGFR-NON AF FILIPINO >60 Normal >=60 [facility] Comment on above: Performed By: #### C KATYA, NA, CA, URIC, BUN, K, CO2, CL #### [facility] [address] [place] [address] Dr. Cesar Francis NAon 10-09-2021 Sodium [Moles/Vol] 143 mmol/L Normal 136-145 [facility] Comment on above: Performed By: #### C KATYA, NA, CA, URIC, BUN, K, CO2, CL #### [facility] [address] [address] [address] Cesar Francis PHOSPHORUSon 10-09-2021 Phosphate [Mass/Vol] 2.7 mg/dL Normal 2.6-4.7 [facility] Comment on above: Performed By: #### C KATYA, NA, CA, URIC, BUN, K, CO2, CL #### [facility] [address] [address] [address] Cesar Francis URIC ACID SERUMon 10-09-2021 Urate [Mass/Vol] 5.8 mg/dL Normal 2.6-6.0 [facility] Comment on above: Performed By: #### C KATYA, NA, CA, URIC, BUN, K, CO2, CL #### [facility] [address] [place] [address] Dr. Cesar Francis PROTIMEon 05-04-2017 INR Coag RelTime (PPP) 1.04 {INR} Normal 0.00-1.20 [facility] Comment on above: Order Comment: CONSE RVATIONList patient's anticoagulants for PT: NONE SPECIFIED Result Comment: Troy mmended therapeutic range is an INR of 2.0-3.0 exceptfor prevention of recurrent acute NM and mechanicalprosthetic heart valve where an INR of 2.5-3.5 isrecommended. Performed By: #### L 300.71280 ####Test performed at: [address] [address] PT SEC 11.0 seconds Normal 9.7-11.5 [facility] Comment on above: Order Comment: CONSE RVATIONList patient's anticoagulants for PT: NONE SPECIFIED Performed By: #### L 300.76855 ####Test performed at: [address] [address] CARDIAC CATHETERIZATIONon CARDIAC CATHETERIZATION PATIENT NAME: ANNELISE SNOW#: [id number]: ANNELISE SNOW#: [id number] OF PROCEDURE: 05/03/2017CARDIAC CATHHISTORY OF PRESENT ILLNESS: Mrs. Snwo is a 57-year-old lady well known tome. [...] was accessedwith a multipurpose needle and a 6-Tongan sheath inserted. Selective coronaryarteriography was performed using 6-Tongan JL4 and 6-Tongan JR4 catheters.Left ventriculography was performed using a 6-Tongan angled pigtail catheter.At the end of the [...] groove. [facility]: BEKA SNOW [facility] REC: [id number] ACCOUNT NUM: [id number]/BED: [facility]-01 : [id number] [address] ATTENDING PHY: Candice Torres MDCARDIAC CATHETERIZATIONPATIENT NAME: ELDON SNOWR#: [id number] contain any significant disease.LEFT VENTRICULOGRAM: The left ventricular injection reveals a normal size leftventricle with normal contractility and normal ejection fraction. There is noangiographic mitral regurgitation.FINAL DIAGNOSIS:1. CAD-luminal irregularities, left main trunk-patent stent in proximal LAD-60-70% mid point. Posterior descending rxktpnlhox-63-12% mid rightcoronary artery.RECOMMENDATION: The circumflex stent will [...] at anappropriate time on the floor. MICHAEL MOREIRA/SEAN/[id number] 25D: 05/03/2017 13:24:11 E/S: RUFUS Wharton/27/18 0850[facility] NAME: BEKA SNOW [facility] REC: [id number] ACCOUNT NUM: [id number]/BED: Pao246-01 : [id number] [address] [address] ATTENDING PHY: Candice Torres MDCARDIAC CATHETERIZATION Normal [facility] CBC W/DIFFon 05-03-2017 BASO ABS 0.1 K/uL Normal 0.0-0.2 [facility] Comment on above: Order Comment: CONSE RVATION Performed By: #### L 200.59156 ####Test performed at: [address] [address] Basophils/100 WBC Auto (Bld) 1.8 % Normal [facility] Comment on above: Order Comment: CONSE RVATION Performed By: #### L 200.02494 ####Test performed at: [address] [address] EOS ABS 0.2 K/uL Normal 0.0-0.5 [facility] Comment on above: Order Comment: CONSE RVATION Performed By: #### L 200.55078 ####Test performed at: [address] [address] Eosinophils/100 leukocytes 2.6 % Normal [facility] Comment on above: Order Comment: CONSE RVATION Performed By: #### L 200.31752 ####Test performed at: [address] [address] Erythrocyte distribution width Auto Ratio (RBC) 13.7 % Normal 11.5-14.5 [facility] Comment on above: Order Comment: CONSE RVATION Performed By: #### L 200.34151 ####Test performed at: [address] [address] Erythrocytes (RBC) 5.06 10*6/uL Normal 3.5-5.5 [facility] Comment on above: Order Comment: CONSE RVATION Performed By: #### L 200.46205 ####Test performed at: [address] [place] [address] Erythrocytes (RBC) 0.000 10*6/uL Normal 0-0.012 [facility] Comment on above: Order Comment: CONSE RVATION Performed By: #### L 200.32550 ####Test performed at: [address] [place] [address] Hematocrit (HCT) 42.6 % Normal 36.0-48.0 [facility] Comment on above: Order Comment: CONSE RVATION Performed By: #### L 200.83956 ####Test performed at: [address] [place] [address] Hemoglobin mass conc (Bld) 14.1 g/dL Normal 12.0-15.0 [facility] Comment on above: Order Comment: CONSE RVATION Performed By: #### L 200.80663 ####Test performed at: [address] [place] [address] IG % 0.3 % Normal [facility] Comment on above: Order Comment: CONSE RVATION Performed By: #### L 200.24187 ####Test performed at: [address] [id number] IG ABS 0.02 K/uL Normal 0-0.05 [facility] Comment on above: Order Comment: CONSE RVATION Performed By: #### L 200.90638 ####Test performed at: [address] [id number] Lymphocytes 1.5 10*3/uL Normal 1.2-3.5 [facility] Comment on above: Order Comment: CONSE RVATION Performed By: #### L 200.28908 ####Test performed at: [address] [address] Lymphocytes/100 leukocytes 20.2 % Normal [facility] Comment on above: Order Comment: CONSE RVATION Performed By: #### L 200.84759 ####Test performed at: [address] [address] MCH 27.9 pg Normal 25.4-34.6 [facility] Comment on above: Order Comment: CONSE RVATION Performed By: #### L 200.06016 ####Test performed at: [address] [address] MCHC mass conc (RBC) 33.1 g/dL Normal 31.5-36.5 [facility] Comment on above: Order Comment: CONSE RVATION Performed By: #### L 200.62617 ####Test performed at: [address] [address] MCV 84.2 fL Normal 79.0-98.0 [facility] Comment on above: Order Comment: CONSE RVATION Performed By: #### L 200.96217 ####Test performed at: [address] [address] MONO ABS 0.7 K/uL Normal 0.0-1.0 [facility] Comment on above: Order Comment: CONSE RVATION Performed By: #### L 200.77146 ####Test performed at: [address] [address] Monocytes/100 leukocytes 9.4 % Normal [facility] Comment on above: Order Comment: CONSE RVATION Performed By: #### L 200.11641 ####Test performed at: [address] [address] Neutrophils 4.8 10*3/uL Normal 1.4-6.6 [facility] Comment on above: Order Comment: CONSE RVATION Performed By: #### L 200.47128 ####Test performed at: [address] [address] Neutrophils/100 WBC Auto (Bld) 65.7 % Normal [facility] Comment on above: Order Comment: CONSE RVATION Performed By: #### L 200.12826 ####Test performed at: [address] [address] NRBC % 0.0 /100 WBC Normal 0-0.2 [facility] Comment on above: Order Comment: CONSE RVATION Performed By: #### L 200.40759 ####Test performed at: [address] [address] Platelet mean volume (PMV) 11.9 fL Normal 8.7-12.4 [facility] Comment on above: Order Comment: CONSE RVATION Performed By: #### L 200.87809 ####Test performed at: [address] [address] Platelets 207 10*3/uL Normal 140-440 [facility] Comment on above: Order Comment: CONSE RVATION Performed By: #### L 200.48192 ####Test performed at: [address] [address] WBC (Leukocytes) 7.2 10*3/uL Normal 3.9-11.0 [facility] Comment on above: Order Comment: CONSE RVATION Performed By: #### L 200.23966 ####Test performed at: [address] [address] COMP META PANELon 05-03-2017 Alanine aminotransferase (ALT) 17 U/L Normal 13-61 [facility] Comment on above: Order Comment: CONSE RVATIONIs patient fasting? UNKNOWN Performed By: #### L 500.67867, L500.70937, L500.78873, L500.95391 ####Test performed at: [place] [id number] Albumin 3.4 g/dL Normal 3.4-5.0 [facility] Comment on above: Order Comment: CONSE RVATIONIs patient fasting? UNKNOWN Performed By: #### L 500.14367, L500.97282, L500.16099, L500.53685 ####Test performed at: [place] [id number] ALK PHOS TOTAL 96 U/L Normal 45-117 [facility] Comment on above: Order Comment: CONSE RVATIONIs patient fasting? UNKNOWN Performed By: #### L 500.50757, L500.32354, L500.63615, L500.50262 ####Test performed at: [place] [address] Aspartate aminotransferase (AST) 15 U/L Normal 15-37 [facility] Comment on above: Order Comment: CONSE RVATIONIs patient fasting? UNKNOWN Performed By: #### L 500.28410, L500.83351, L500.99781, L500.81232 ####Test performed at: [place] [id number] BILI TOTAL 0.7 mg/dL Normal 0.2-1.0 [facility] Comment on above: Order Comment: CONSE RVATIONIs patient fasting? UNKNOWN Performed By: #### L 500.24512, L500.84486, L500.63062, L500.28390 ####Test performed at: [place] [id number] Calcium 8.3 mg/dL Low 8.5-10.1 [facility] Comment on above: Order Comment: CONSE RVATIONIs patient fasting? UNKNOWN Performed By: #### L 500.87951, L500.73665, L500.14645, L500.12777 ####Test performed at: [address] [address] Chloride 108 mmol/L High 98-107 [facility] Comment on above: Order Comment: CONSE RVATIONIs patient fasting? UNKNOWN Performed By: #### L 500.86258, L500.25488, L500.60157, L500.19304 ####Test performed at: [place] [address] CO2 30 mmol/L Normal 21-32 [facility] Comment on above: Order Comment: CONSE RVATIONIs patient fasting? UNKNOWN Performed By: #### L 500.62304, L500.12475, L500.25512, L500.97192 ####Test performed at: [place] [id number] Creatinine 0.648 mg/dL Normal 0.550-1.020 [facility] Comment on above: Order Comment: CONSE RVATIONIs patient fasting? UNKNOWN Performed By: #### L 500.86040, L500.95273, L500.13500, L500.41194 ####Test performed at: [place] [id number] Glucose mass conc 94 mg/dL Normal 74-106 [facility] Comment on above: Order Comment: CONSE RVATIONIs patient fasting? UNKNOWN Performed By: #### L 500.83925, L500.90542, L500.00572, L500.23876 ####Test performed at: [address] [address] Potassium molar conc 4.2 mmol/L Normal 3.5-5.1 [facility] Comment on above: Order Comment: CONSE RVATIONIs patient fasting? UNKNOWN Performed By: #### L 500.33276, L500.48601, L500.63421, L500.20726 ####Test performed at: [address] [address] Protein 6.4 g/dL Normal 6.4-8.2 [facility] Comment on above: Order Comment: CONSE RVATIONIs patient fasting? UNKNOWN Performed By: #### L 500.66323, L500.47642, L500.11282, L500.80893 ####Test performed at: [place] [address] Sodium 142 mmol/L Normal 136-145 [facility] Comment on above: Order Comment: CONSE RVATIONIs patient fasting? UNKNOWN Performed By: #### L 500.98685, L500.35937, L500.81986, L500.80871 ####Test performed at: [place] [address] Urea nitrogen 10 mg/dL Normal 7-18 [facility] Comment on above: Order Comment: CONSE RVATIONIs patient fasting? UNKNOWN Performed By: #### L 500.88232, L500.88317, L500.39672, L500.87422 ####Test performed at: [place] [address] Cardiology Progress Noteon 0 05-03-2017 Cardiology Progress Note [facility] Pt Name: QUE SNOWA[address] MR#: [id number], [place] [address] ACCT: [id number] NOTE - Cardiology : 59Service Date: 05/04/17 1131NAME: ANNELISE SNOW#: [id number] OF SERVICE: 05/04/2017CARDIOLOGY PROGRESS NOTESUBJECTIVE: Mrs. Snow [...] me with jason 1 month. CANDICE TORRES, [facility]/[id number] 35D: 05/04/2017 11:31:37 eSign Date and TimeSteeleCandice MD Signature on File 05/04/17 1156 Normal [facility] EKGon 05-03-2017 EKG Acquired on 05/03/19 18 0957Vent. Rate : 055 BPM Atrial Rate : 055 BPMP-R Int : 188 ms QRS Dur : 080 msQT Int : 396 ms P-R-T Axes : 058 062 055 degreesQTc Int : 378 msSinus bradycardiaOtherwise normal ECGNo previous ECGs availableConfirmed by CANDICE TORRES MD ([id number]) on 05/04/2017 11:16:47 AMReferred By: Confirmed By:CANDICE TORRES [id number] 2017 [facility] PT NAME: ANNELISE SNOW#: [id number] [place] [address] ACCT: [id number]: 59EKG REPORT Normal [facility] EST. CREAT CLRon 05-03-2017 Creatinine 104.424 ML/MIN Normal [facility] Comment on above: Order Comment: CONSE RVATIONIs patient fasting? UNKNOWN Result Comment: This result is an ESTIMATED blood creatinine clearance valuewhich is derived from the patient age, sex, weight, andprevious blood creatinine result. Performed By: #### L 500.75174, L500.74599, L500.60378, L500.72240 ####Test performed at: [place] [address] GFR ESTIMATEon 05-03-2017 IF AMER > 60 Normal > 60 [facility] Comment on above: Order Comment: CONSE RVATIONIs patient fasting? UNKNOWN Result Comment: eGFR (Estimated GFR) Units of measure:mL/min/1.73 meters sq.*CALCULATION REVISED 12/28/2014;IDMS-traceable MDRD equationeGFR is derived from the reexpressed MDRD Study equationusing the following parameters: serum creatinine, age,gender and race. An eGFR<60 mL/min/1.73m2 for >3 monthsis consistent with chronic kidney disease. Refer to KDOQIguidelines for clinical interpretation. Performed By: #### L 500.03787, L500.84294, L500.81357, L500.86886 ####Test performed at: [place] [address] IF non-AFR AMER > 60 Normal > 60 [facility] Comment on above: Order Comment: CONSE RVATIONIs patient fasting? UNKNOWN Performed By: #### L 500.30105, L500.63391, L500.73076, L500.99222 ####Test performed at: [place] [address] LIPID PROFILEon 05-03-2017 Cholesterol 255 mg/dL High <200 [facility] Comment on above: Order Comment: CONSE RVATIONIs patient fasting? UNKNOWN Result Comment: <200 mg/dL (Desirable) 200-240 mg/dL (Borderline) >240 mg/dL (High Risk) Performed By: #### L 500.66759, L500.49854, L500.83240, L500.19985 ####Test performed at: [place] [address] HDL Cholesterol 51 mg/dL Normal 40-60 [facility] Comment on above: Order Comment: CONSE RVATIONIs patient fasting? UNKNOWN Performed By: #### L 500.73023, L500.35303, L500.26157, L500.82932 ####Test performed at: [place] [address] LDL Cholesterol 188 mg/dL High 60-130 [facility] Comment on above: Order Comment: CONSE RVATIONIs patient fasting? UNKNOWN Performed By: #### L 500.38692, L500.06890, L500.82241, L500.71182 ####Test performed at: [place] [address] Triglyceride 99 mg/dL Normal <150 [facility] Comment on above: Order Comment: CONSE RVATIONIs patient fasting? UNKNOWN Result Comment: <150 mg/dL (Normal) 150-199 mg/dL (Borderline) 200-499 mg/dL (High) >500 mg/dL (Very High) Performed By: #### L 500.21625, L500.63655, L500.95352, L500.81448 ####Test performed at: [place] [address] PROTIMEon 05-03-2017 INR Coag RelTime (PPP) 1.06 {INR} Normal 0.00-1.20 [facility] Comment on above: Order Comment: CONSE RVATIONList patient's anticoagulants for PT: HEPARIN Result Comment: Troy mmended therapeutic range is an INR of 2.0-3.0 exceptfor prevention of recurrent acute NM and mechanicalprosthetic heart valve where an INR of 2.5-3.5 isrecommended. Performed By: #### L 300.60518 ####Test performed at: [place] [address] PT SEC 11.2 seconds Normal 9.7-11.5 [facility] Comment on above: Order Comment: CONSE RVATIONList patient's anticoagulants for PT: HEPARIN Performed By: #### L 300.36456 ####Test performed at: [address] [address] Vital Signs Date Time Vital Sign Value Performing Clinician Arti cotton 08-15-2023 09:13-0400 Body height 165.1 cm [facility] 08-15-2023 09:13-0400 Body mass index (BMI) [Ratio] 26.6 kg/m2 [facility] 08-15-2023 09:13-0400 Body weight 72.74 kg [facility] 08-15-2023 09:13-0400 Diastolic blood pressure 69 mm[Hg] [facility] 08-15-2023 09:13-0400 Heart rate 60 /min [facility] 08-15-2023 09:13-0400 Respiratory rate 12 /min [facility] 08-15-2023 09:13-0400 Systolic blood pressure 118 mm[Hg] [facility] 06-05-2023 08:38-0400 Body height 165.1 cm [facility] 06-05-2023 08:38-0400 Body mass index (BMI) [Ratio] 26.8 kg/m2 [facility] 06-05-2023 08:38-0400 Body weight 73.02 kg [facility] 06-05-2023 08:38-0400 Diastolic blood pressure 76 mm[Hg] [facility] 06-05-2023 08:38-0400 Heart rate 73 /min [facility] 06-05-2023 08:38-0400 Respiratory rate 12 /min [facility] 06-05-2023 08:38-0400 Systolic blood pressure 124 mm[Hg] [facility] 06-19-2021 14:55-0400 Blood Pressure Location Rachelle Whitfield [facility] 06-19-2021 14:55-0400 Diastolic blood pressure 78 mm[Hg] Rachelle Lue [facility] 06-19-2021 14:55-0400 Heart rate 78 /min Rachelle Lue [facility] 06-19-2021 14:55-0400 Respiratory rate 16 /min Rachelle Lue [facility] 06-19-2021 14:55-0400 Systolic blood pressure 115 mm[Hg] Rachelle Lue [facility] Encounters Encounter Date Encounter Type Care Provider Facility Start: 10-14-2023 End: 10-14-2023 ambulatory NADIA Charlton DAUCH-BRADEN Not Available Start: 09-30-2023 End: 09-30-2023 ambulatory RUFINO B APLING Not Available Start: 09-09-2023 End: 09-09-2023 ambulatory DALE KATIE Not Available Start: 09-04-2023 End: 09-04-2023 ambulatory RUFINO B APLING Not Available Start: 08-28-2023 End: 08-28-2023 [facility]: 08-28-2023 End: 08-28-2023 Evaluation and management of inpatient [facility]ORRAINE [facility] Start: 08-15-2023 End: 08-15-2023 ambulatory [facility] Work Phone: Start: 08-15-2023 End: 08-15-2023 Patient encounter procedure [facility] Work Phone: Start: 08-07-2023 End: 08-07-2023 ambulatory [facility] Start: 08-07-2023 End: 08-07-2023 Encounter for preprocedural cardiovascular examination [facility] Start: 08-01-2023 Encounter for other preprocedural examination [facility] Start: 08-01-2023 End: 08-01-2023 ambulatory LORRAINE BRYANDLESTON [facility] Start: 07-30-2023 End: 07-30-2023 ambulatory LORRAINE Terence JOSEPHINE Not Available Start: 07-22-2023 End: 07-22-2023 ambulatory LORRAINE Terence JOSEPHINE Not Available Start: 07-16-2023 End: 07-16-2023 ambulatory LORRAINE Terence JOSEPHINE Not Available Start: 06-05-2023 End: 06-05-2023 ambulatory [facility] Work Phone: Start: 06-05-2023 End: 06-05-2023 Encounter for general adult medical examination without abnormal findings [facility] Start: 06-05-2023 End: 06-05-2023 Patient encounter procedure [facility] Work Phone: Start: 05-31-2023 Non-patient / Non-visit [facility] Work Phone: Start: 05-08-2023 Non-patient / Non-visit [facility] Work Phone: Start: 05-08-2023 Non-patient / Non-visit [facility] Work Phone: Start: 05-07-2023 End: 05-07-2023 ambulatory ABI GIBBS Not Available Start: 04-30-2023 End: 04-30-2023 ambulatory LORRAINE RAYA Not Available Start: 04-09-2023 End: 04-09-2023 ambulatory LORRAINE RAYA Not Available Start: 04-01-2023 End: 04-01-2023 ambulatory ABI GIBBS Not Available Start: 03-26-2023 Patient encounter procedure [facility]- Start: 03-18-2023 End: 03-18-2023 ambulatory ABI GIBBS Not Available Start: 01-30-2023 End: 01-30-2023 ambulatory [facility] Start: 11-02-2022 End: 11-02-2022 ambulatory [facility] Start: 08-20-2022 ambulatory Rachelle Whitfield Facility:[facility] Start: 06-30-2022 End: 07-01-[address] HAIR DIETZ Facility:[facility] Start: 06-21-2022 End: 06-22-[address] HAIR DIETZ Facility:[facility] Start: 06-20-2022 ambulatory BRANDT Ramirez ty:[facility] Start: 06-09-2022 ambulatory BRANDT Ramirez ty:[facility] Start: 05-31-2022 End: 06-01-2022 ambulatory BRANDT MCNAMARA Facility:[facility] Start: 05-22-2022 End: 05-23-2022 ambulatory RACHELLE WHITFIELD . Facility:[facility] Start: 05-18-2022 End: 05-19-2022 ambulatory RACHELLE WHITFIELD . Facility:[facility] Start: 04-17-2022 End: 04-18-[address] SON IRIZARRY Facility:[facility] Start: 02-15-2022 Encounter for genera l adult medical examination without abnormal findings DR SON IRIZARRY [facility] Start: 02-09-2022 End: 02-10-[address] SON IRIZARRY Facility:[facility] Start: 02-09-2022 End: 02-10-2022 Encounter for general adult medical examination without abnormal findings DR SON IRIZARRY Facility:[facility] Start: 12-07-2021 End: 12-08-2021 ambulatory Rachelle Whitfield Facility:[facility] Start: 12-07-2021 End: 12-07-2021 Patient encounter procedure Rachelle Whitfield [facility] Start: 10-09-2021 End: 10-10-2021 ambulatory RACHELLE WHITFIELD . Facility:[facility] Start: 06-19-2021 End: 06-19-2021 Patient encounter procedure Rachelle Whitfield [facility] Start: 05-03-2017 End: 05-04-2017 Evaluation and management of inpatient Family Physician Unavailable Facility:[facility] Procedures Date Procedure Procedure Detail Performing [...] Lue Hysterectomy Rachelle Lue kidney surgery Rachelle Lue Placement of stent i n cardiac conduit Rachelle Lue Comment on above: x2 stents Rachelle Whitfield Plan of Treatment Date Care Activity Detail Author Start: 06-05-2023 Patient referral [facility] Work Phone: Patient referral [facility] Work Phone: Immunizations Immunization Date Immunization Notes Care Provider Rossi bourgeois NEGATED: Highlighted row has not occurred!03-18-2019 influenza virus vaccine, live, attenuated, for intranasal use Rachelle Whitfield [facility] Payers Date Payer Category Payer Private Health Insurance [id number] Self-pay [id number] 1960 Unknown [id number] 1960 Unknown [id number] 2.16.84 0.1.485603.3.579.2.593 1959 Unknown [id number] 2.16.84 0.1.799850.3.579.2.593 1959 Unknown [id number] 2.16.84 0.1.130627.3.579.2.593 1959 Unknown [id number] 2.16.84 0.1.699603.3.579.2.593 1959 Unknown [id number] 2.16.84 0.1.822737.3.579.2.593 1959 Unknown [id number] 2.16.84 0.1.944425.3.579.2.593 1959 Unknown [id number] 2.16.84 0.1.155338.3.579.2.593 1959 Unknown [id number] 2.16.84 0.1.359386.3.579.2.593 1959 Unknown [id number] 2.16.84 0.1.320292.3.579.2.593 1959 Unknown [id number] 2.16.84 0.1.847438.3.579.2.593 1959 Unknown [id number] 2.16.84 0.1.580803.3.579.2.593 1959 Unknown [id number] 2.16.8 40.1.965777.3.579.2.727 1959 Unknown [id number] 2.16.8 40.1.617940.3.579.2.727 1959 Unknown [id number] 2.16.8 40.1.020735.3.579.2.1286 1959 Unknown [id number] 2.16.8 40.1.202099.3.579.2.1286 1959 Unknown [id number] 2.16.8 40.1.029829.3.579.2.1286 1959 Unknown [id number] 2.16.8 40.1.513129.3.579.2.1286 1959 Unknown [id number] 2.16.8 40.1.881505.3.579.2.1286 1959 Unknown [id number] 2.16.8 40.1.792138.3.579.2.1286 1959 Unknown [id number] 2.16.84 0.1.111312.3.579.2.1259 1959 Unknown [id number] 2.16.84 0.1.518313.3.579.2.1259 1959 Unknown [id number] 2.16.84 0.1.191128.3.579.2.1259 1959 Unknown [id number] 2.16.84 0.1.383952.3.579.2.1259 1959 Unknown [id number] 2.16.84 0.1.527391.3.579.2.1259 1959 Unknown [id number] 2.16.84 0.1.216950.3.579.2.1259 1959 Unknown [id number] 2.16.84 0.1.619350.3.579.2.1259 1959 Unknown [id number] 2.16.84 0.1.370363.3.579.2.1259 1959 Unknown [id number] 2.16.84 0.1.281497.3.579.2.1259 1959 Unknown [id number] 2.16.84 0.1.060067.3.579.2.1259 1959 Unknown [id number] 2.16.84 0.1.189085.3.579.2.1259 1959 Unknown [id number] 2.16.84 0.1.537460.3.579.2.1259 1959 Unknown [id number] 2.16.84 0.1.770326.3.579.2.1259 1959 Unknown [id number] 2.16.840 .1.589741.3.579.2.1259 Self-pay Self Pay [id number] Social History Date Type Detail Facility Start: 02-05-2017 End: 06-19-2021 Tobacco smoking status Ex-smoker (finding) [facility] Sex Assigned At Female [facility] Start: 1960 Sex Assigned At Female F [facility] Functional Status Date Assessment Result Facility 12-07-2021 Functional Status N/A [facility] Clinical Notes 06-19-2021 to 08-07-2023 Note Date & Type Note Facility 08-07-2023 Note OR Cardiology - [facility] Subjective Pam Snow is a 63 y.o. year old female patient being seen for CAD, statin intolerance, and stable angina. She needs cleared for shoulder surgery, scheduled 08/[address] Raya. She had EKG last week at [facility]. 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 Hasn't smoked since 2008. She was unable to tolerate Zetia and pravastatin that Dr. Mcnamara started her on in May 2022. Previous HPI-- Currently she is very concerned about her family h/o CAD/CHF/and valvular disease. States her brother passed 2 years ago s/p NM- but admits that he was 100pounds overweight, [...] Former BSA 1.8 m??? Allergies Allergen Reactions Jjyimwc-Uqk-Qec Reductase Inhibitors Unknown Medications: Current Outpatient Medications on File Prior to Visit Medication Sig Dispense Refill aspirin 81 mg EC tablet Take 81 mg by mouth in the morning. buPROPion XL (Wellbutrin XL) 300 mg 24 hr tablet cyanocobalamin (Vitamin B-12) 1,000 mcg/mL injection qyftupoocsi-crfucymyb-kjixbdai (Trelegy Ellipta) 100-62.5-25 mcg blister with device [...] all medications- hydrochlorothiazide Coronary artery disease of [place] artery of [place] heart with stable angina pectoris ([facility]/HCC) Coronary artery disease is stable Continue GDMT- [...] was initiated by the patient and conducted wtc-fqgs-wx-face with use of audio-only real time telephone communication between patient and provider for a virtual visit. Verbal consent to provide and bill for this service was obtained on 11/02/2022. [facility] CARDIOLOGY PROGRESS NOTE Pam Snow [...] Vitals Smoking Status Former Allergies Allergen Reactions Nyyjbhn-Sjb-Mqk Reductase Inhibitors Unknown Medications: Current Outpatient Medications on File Prior to Visit Medication Sig Dispense Refill aspirin 81 mg EC tablet Take 81 mg by mouth in the morning. buPROPion XL (Wellbutrin XL) 300 mg 24 hr tablet cyanocobalamin (Vitamin B-12) 1,000 mcg/mL injection kycseujyxtn-notzoeysi-lrqrfzrs (Trelegy Ellipta) 100-62.5-25 mcg blister with device [...] been reviewed Assessment/Plan: Coronary artery disease of [place] artery of [place] heart with stable angina pectoris (CMS/HCC) Coronary [...] additional personal documentation from me. RTC 3months [facility] 11-02-2022 Note Lipid abnormalities remain elevated with [...] instructions Patient Education 12/07/2021 15:35:55 Kidney Stones, Tzpe-me-Cloy Kidney Stones Kidney stones are rock-like masses [...] Follow these instructions at home: Medicines Take fnkv-jlb-ybogwhf and prescription medicines only as told by [...] 08/13/2008 Document Revised: 07/14/2019 Document Reviewed: 07/14/2019 [employer] Patient Education 2020 [employer]. Follow Up Care 06/19/2021 15:23:52 With:Nahid KELLY, WILLOW Little, URO Address: When: Unknown [facility] 06-19-2021 Hospital Discharge instructions Patient [...] include: ?Spinach. ?Rhubarb. ?Beets. ?Potato chips and azeri fries. ?Nuts. If you regularly take a diuretic medicine, make sure to eat at least 1 2 fruits or vegetables high in potassium each day. These include: ?Avocado. ?Banana. ?Cherokee, prune, carrot, or tomato juice. ?Baked potato. [...] Casseroles. Pizza. Lasagna. Frozen meals. Potato chips. Tongan fries. Summary You can reduce your risk [...] 06/22/2011 Document Revised: 06/17/2019 Document Reviewed: 02/05/2017 [employer] Patient Education 2020 [employer]. Follow Up Care 05/15/2021 15:10:22 With:Nahid KELLY, Rachelle Monroe, URL, URO Address: [address] [place], [place] [address] [address]- When:09/18/2021 Comments:w/24hr urine [facility] Evaluation + Plan note Future Appointments Appointment Date:10/02/2021 03:15:00 PM Scheduled Provider:Rachelle Whitfield MD Location:[facility] Appointment Type:URO Office Visit [facility] Evaluation + Plan note Future Appointments Appointment Date:06/07/2022 03:15:00 PM Scheduled Provider:Rachelle Whitfield MD Location:[facility] Appointment Type:URO Office Visit [facility] Evaluation note Diagnosis Onset Date ASHD (arteriosclerotic heart disease) acute Chronic bronchitis, simple a cute Elevated cholesterol acute GERD (gastroesophageal reflux disease) acute Hypertension acute Screening for colon cancer n oneactive Screening mammogram for breast cancer noneactive Wellness examination noneact yudelka [facility] Work Phone: Evaluation note* Diagnosis Onset [...] acute Preop exam for internal medicine noneactive [facility] Work Phone: Hospital course Narrative No data available for this section [facility] Progress note No data available for this section [facility] Summary Purpose Family History No [...] Wellness examination Chief Complaint Wellness pre op [facility] Reason for Visit ASHD (arteriosclerot ic heart disease) Chronic bronchitis, simple Elevated cholesterol GERD (gastroesophageal reflux disease) Hypertension Screening for colon cancer Screening mammogram for breast cancer Wellness examination ASHD (arteriosclerotic heart disease) Chronic bronchitis, simple Elevated cholesterol Hypertension Preop exam for internal medicine Additional Source Comments INFORMATION SOURCE (unrecogn ized section and content) DATE CREATED AUTHOR 08/30/2017 [facility] DATE CREATED AUTHOR AUTHOR'S ORGANIZ ATION 07/07/2022 [facility] DATE CREATED AUTHOR AUTHOR'S ORGANIZ ATION 09/26/2022 [facility] DATE CREATED AUTHOR AUTHOR'S ORGANIZ ATION 08/08/2023 [facility] DATE CREATED AUTHOR AUTHOR'S ORGANIZ ATION 08/29/2023 [facility] DATE CREATED AUTHOR AUTHOR'S ORGANIZ ATION 10/16/2023 [facility] EPIC Care Team (unrecognized [...] Status: Inactive Member Role Status Dates Son Rodrigo , DO Primary Care Provide r, Attending [...] BE BASED ON THE PRIMARY CLINICAL RECORDS. [facility] [employer] [facility]. provides no warranty or guarantee of the accuracy or completeness of information in this document.
[2023-11-19 08:49] LABS: Alanine Aminotransferase 32 U/L (14-59); Albumin Globulin Ratio 1.1; Albumin Level 3.4 g/dL (3.4-5.0); Alkaline Phosphatase 52 U/L (46-116); Aspartate Amino Transferase 21 U/L (15-37); Bilirubin Direct 0.1 mg/dL (0.0-0.2); Bilirubin Total 0.6 mg/dL (0.2-1.0); Chol HDL Ratio 2.6; Cholesterol 144 mg/dL (<=200); Globulin 3.1 g/dL; HDL Cholesterol 56 mg/dL (40-60); LDL Cholesterol Calculated 75.6 mg/dL; Total Protein 6.5 g/dL (6.4-8.2); Triglycerides 62 mg/dL (<=150); VLDL CHOLESTEROL 12.4 mg/dL
== END 2023-11-19 07:19 | disposition home or self-care (01) ==
LOC: LAB 07:20
PROVIDERS: PCP Internal Medicine; Visit Provider Internal Medicine Interventional Cardiology
DX: E78.01 Familial hypercholesterolemia (principal)
CPT/HCPCS: 36415; 80061; 80076

== ENCOUNTER 2023-12-20 10:19 | Outpatient (OUT) | payer OTHER, SELFPAY ==
--- OUTSIDE RECORDS SUMMARY | 2023-12-20 10:37 | XMS_ITS | CCD ---
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 Name Role Phone Unavailable, Family Physician [...] Consulting Unavailable YOAN .MARLENE Attending Unavailable SAMSA ., MARLENE Admitting Unavailable BALL, DR FONG Primary Care Unavailable YOAN .MARLENE Consulting Unavailable BRANDT MCNAMARA Admitting Unavailable RBANDT MCNAMRAA Attending Unavailable RODRIGO, DR FONG Primary Care [...] Unavailable KATIE ., DR HUNTER Admitting Unavailable MIRELA, DR HAIR Hale Consulting Unavailable KATIE ., DR HUNTER Consulting Unavailable BRANDT MCNAMARA Attending Unavailable MOUKADALIA, BRANDT Admitting Unavailable RODRIGO, DR FONG Primary Care Unavailable Rachelle Whitfield Attending Unavailable Rachelle Whitfield Attending Unavailable JOSEPHINE, LORRAINE Pratt Referring Unavailable RODRIGO, SON Draper Primary Care Unavailable JOSEPHINE, LORRAINE Pratt Attending Unavailable JOSEPHINE, LORRAINE Pratt Referring Unavailable RODRIGO, SON Draper Primary Care Unavailable JOSEPHINE, LORRAINE Pratt Attending Unavailable JOSEPHINE, LORRAINE Pratt Referring Unavailable BALL, SON Draper Primary Care Unavailable JOSEPHINE, LORRAINE Pratt Admitting Unavailable JOSEPHINE, LORRAINE Pratt Attending Unavailable JOSEPHINE, LORRAINE Pratt Referring Unavailable BACILIO ESQUEDA Attending Unavailable RODRIGO, SON Draper Primary Care Unavailable GIBBS, ABI Barbour Attending Unavailable GIBBS, ABI Barbour Referring Unavailable GIBBS, ABI Barbour Attending Unavailable JOSEPHINE, LORRAINE Pratt Attending Unavailable JOSEPHINE, LORRAINE Pratt Attending Unavailable JOSEPHINE, LORRAINE Pratt Attending Unavailable GIBBSABI Referring Unavailable JOSEPHINE, LORRAINE Pratt Attending Unavailable JOSEPHINE, LORRAINE Pratt Referring Unavailable JOSEPHINE, LORRAINE Pratt Attending Unavailable APLING, RUFINO Corrales Attending Unavailable KATIEDALE Attending Unavailable APLING, RUFINO Corrales Attending Unavailable NADIA GILL Attending Unavail able APLING, RUFINO Corrales Referring Unavailable KELLIE SWAIN Attending Unavailable MOUKARBEL, BRANDT Attending Unavailable Allergies Allergy Classification Reported Allergen(s) Allergy Type Date of Onset Reaction(s) Facility (3 sources) Hmg-Coa Reductase Inhibitors (Statins); Translations: [statins] Drug allergy Unknown (qualifier value) [facility] (4 sources) black walnut pollen extract; Translations: [YTZHVOQ-TZS-ECF REDUCTASE INHIBITORS] Drug Allergy 4 [facility] Repository Medications Current Medications Medication Drug Class(es) Dates Sig (Normalized) Sig (Original) [id number] 200 actuat albuterol 0.09 mg/actuat metered dose [...] PO Twice daily June 04, 2023 12:00am Bghawxurgoh-Iyxeygqtl-Dm lanter (2 sources) Anticholinergi c, Corticosteroid , beta2-Adrenerg ic Agonist Start: 06-04-2023 Okbwrdlufti-Cefpvwlgz-N ilanter (Trelegy Ellipta) 100-62.5-25 mcg blister with [...] BID, # 180 tab(s), Refills(s) 3, Pharmacy: [facility], 162, cm, 03/16/20 8:23:00 EST, [...] disease (15 sources) Atherosclerotic heart disease of [place] coronary artery without angina pectoris; Translations: [Coronary arteriosclerosis] Onset: 06-27-2022 06-04-2023 Chronic Disorders of lipid metabolism (15 sources) Hypercholesterolemia; [...] Classification Problem Date Documented Da te Episodic/Chronic Coronary atherosclerosis and other heart disease (2 sources) Presence of coronary angioplasty implant and graft; Translations: [Presence of coronary angioplasty implant and graft] Onset: 08-07-2023 Episodic Residual codes; unclassified (2 sources) Other specified health status; Translations: [Other specified health status] Onset: 08-01-2022 Episodic Unclassified (2 sources) Atrophy of left kidney 05-15-2021 Unclassified (2 sources) cardiac( Confirmed ) 02-15-2010 Unclassified (2 sources) low potassium( Confirmed ) 02-15-2010 Unclassified (1 source) ACUTE COUGH; Translations: [ACUTE COUGH] Onset: 04-17-2022 Results Test Name Value Interpretation Reference Range Facility 36on 11-20-2023 36 Regarding liver and lipid panel performed on 11/19/2023: MD Marilu Robles MA Her LDL is down to 75 from 204. This is great result. I can see her in 3 months. Patient made aware. Scheduled her an apt for Jan 2024. Normal [facility] Office Visiton 08-07-2023 Follow-up visit [id number] Kell Snow 1960 F Date Provider Department Center 08/07/2023 Natasha-BRANDT MCNAMARA CARD [facility] Family History Problem Relation Age of Onset Other Mother Coronary artery disease Sister Peripheral vascular disease Sister Coronary artery disease Brother Heart failure Brother Atrial fibrillation Brother Family Status - Relation Status Age at Mother Sister Brother Level of Service:27219 MO OFFICE/OUTPATIENT ESTABLISHED MOD MDM 30 MIN Normal [facility] MR SHOULDER LEFT WO IV CONTR [...] Basophils (Bld) [#/Vol] 0.1 10 3/uL 0.0-0.[address] [facility] Basophils/100 WBC Auto (Bld) on 05-31-2023 Basophils/100 WBC (Bld) 2.1 % 0.2-2.[address] [facility] Cholesterol in LDL Calc [Mas s/Vol]on 05-31-2023 Cholesterol in LDL [Mass/Vol] 204.0 mg/dL [facility] Comment on above: <100 mg/dl [id number] 0-129 mg/dl NEAR OR ABOVE [id number] mg/dl BORDERLINE [id number] mg/dl HIGH>190 mg/dl VERY HIGH Cholesterol in VLDL Calc [Ma ss/Vol]on 05-31-2023 Cholesterol in VLDL [Mass/Vol] 13.2 mg/dL [facility] Eosinophils/100 WBC Auto (Bl d)on 05-31-2023 Eosinophils/100 WBC (Bld) 5.2 % 0.9-7.[address] [facility] Erythrocyte distribution wid th Auto (RBC) [Ratio]on 05-31-2023 Erythrocyte distribution width (RBC) [Ratio] 12.9 % 11.0-15.[address] [facility] Estimated glomerular filtrat ion rate (GFR) non- Americanon 05-31-2023 GFR/1.73 sq M.predicted among non-blacks MDRD (S/P/Bld) [Vol rate/Area] mL/min/{1.73_m2} >=[address] [facility] Globulin Calc (S) [Mass/Vol] on 05-31-2023 Globulin (S) [Mass/Vol] 3.6 g/dL [facility] Hematocrit Auto (Bld) [Volum e fraction]on 05-31-2023 Hematocrit (Bld) [Volume fraction] 44.0 % 36.0-48.[address] [facility] Hemoglobin [Mass/volume] in Bloodon 05-31-2023 Hemoglobin (Bld) [Mass/Vol] 14.4 g/dL 12.0-16.[address] [facility] Laboratory - Chemistry and C hemistry - challengeon 05-31-2023 Albumin [Mass/Vol] 3.4 g/dL 3.4-5.0 [facility] ALP [Catalytic activity/Vol] 78 U/L 46-[address] [facility] ALT [Catalytic activity/Vol] 51 U/L 14-[address] [facility] AST [Catalytic activity/Vol] 28 U/L 15-[address] [facility] Bilirubin [Mass/Vol] 0.5 mg/dL 0.2-1.0 [facility] Calcium [Mass/Vol] 9.1 mg/dL 8.5-10.1 [facility] Chloride [Moles/Vol] 102 mmol/L 98-107 [facility] Cholesterol [Mass/Vol] 277 mg/dL <=[address] [facility] Cholesterol in HDL [Mass/Vol] 60 mg/dL 40-[address] [facility] Comment on above: > or =60 mg/dl - LOW CARDIOVASCULAR RISK<40 mg/dl - HIGH CARDIOVASCULAR RISK CO2 [Moles/Vol] 29.1 mmol/L 21.0-32.0 [facility] Creatinine [Mass/Vol] 0.76 mg/dL 0.55-1.[address] [facility] GFR/1.73 sq M.predicted MDRD (S/P/Bld) [Vol rate/Area] mL/min/{1.73_m2} >=[address] [facility] Glucose [Mass/Vol] 102 mg/dL 74-106 [facility] Potassium [Moles/Vol] 3.8 mmol/L 3.5-5.[address] [facility] Protein [Mass/Vol] 7.0 g/dL 6.4-8.2 [facility] Sodium [Moles/Vol] 141 mmol/L 136-145 [facility] Triglyceride [Mass/Vol] 66 mg/dL <=[address] [facility] Urea nitrogen [Mass/Vol] 21.0 mg/dL 7.0-18.[address] [facility] Urea nitrogen/Creatinine [Mass ratio] 27.6 mg/mg [facility] Laboratory - Hematology and Cell countson 05-31-2023 Immature granulocytes/100 WBC (Bld) 0.2 % 0.0-0.[address] [facility] Leukocytes [#/volume] correc johanna for nucleated erythrocytes in Blood by Automated counon 05-31-2023 WBC corrected for nucl RBC Auto (Bld) [#/Vol] 5.6 10 3/uL 4.0-11.[address] [facility] Lymphocytes Auto (Bld) [#/Vo l]on 05-31-2023 Lymphocytes (Bld) [#/Vol] 1.7 10 3/uL 1.2-3.[address] [facility] Lymphocytes/100 WBC Auto (Bl d)on 05-31-2023 Lymphocytes/100 WBC (Bld) 31.0 % 20.5-60.[address] [facility] MCH Auto (RBC) [Entitic mass ]on 05-31-2023 MCH (RBC) [Entitic mass] 28.8 pg 26.7-34.[address] [facility] MCHC Auto (RBC) [Mass/Vol]on 05-31-2023 MCHC (RBC) [Mass/Vol] 32.7 g/dL 29.9-35.[address] [facility] MCV Auto (RBC) [Entitic vol] on 05-31-2023 MCV (RBC) [Entitic vol] 88.0 fL 81.0-99.[address] [facility] Monocytes Auto (Bld) [#/Vol] on 05-31-2023 Monocytes (Bld) [#/Vol] 0.8 10 3/uL 0.3-0.[address] [facility] Monocytes/100 WBC Auto (Bld) on 05-31-2023 Monocytes/100 WBC (Bld) 13.4 % 1.7-12.[address] [facility] Neutrophils Auto (Bld) [#/Vo l]on 05-31-2023 Neutrophils (Bld) [#/Vol] 2.7 10 3/uL 1.4-6.[address] [facility] Neutrophils/100 WBC Auto (Bl d)on 05-31-2023 Neutrophils/100 WBC (Bld) 48.1 % 43.0-75.[address] [facility] No Panel Informationon 05-30 Eosinophils # (Auto) 0.3 10 3/uL 0.0-0.7 [facility] Immature Granulocyte # (Auto) 0.01 10 3/uL 0.00-0.[address] [facility] Platelet mean volume Auto (B ld) [Entitic vol]on 05-31-2023 Platelet mean volume (Bld) [Entitic vol] 10.7 fL 9.5-13.[address] [facility] Platelets Auto (Bld) [#/Vol] on 05-31-2023 Platelets (Bld) [#/Vol] 305 10 3/uL 150-[address] [facility] RBC Auto (Bld) [#/Vol]on RBC (Bld) [#/Vol] 5.00 10 6/uL 4.20-5.40 [facility] Serum or plasma albumin/glob ulin mass ratioon 05-31-2023 Albumin/Globulin [Mass ratio] 0.9 {ratio} [facility] Serum or plasma anion gap de terminationon 05-31-2023 Anion gap [Moles/Vol] 13.7 mmol/L [facility] Serum or plasma total choles terol/high density lipoprotein (HDL) cholesterol mass robyn 05-31-2023 Cholesterol.total/Ch olesterol in HDL [Mass ratio] 4.6 {ratio} [facility] Comment on above: 3.3 - 4.4 LOW RISK4. 4 - 7.1 AVERAGE RISK7.1 - 11.0 MODERATE RISK>11.0 HIGH RISK Office Visiton 01-30-2023 Follow-up visit [id number] Kell Snow 1960 F Date Provider Department Center 01/30/2023 KELLIE RIVERA Family History Problem Relation Age of Onset Other Mother Coronary artery disease Sister Peripheral vascular disease Sister Coronary artery disease Brother Heart failure Brother Atrial fibrillation Brother Family Status - Relation Status Age at Mother Sister Brother Level of Service:96254 MO OFFICE/OUTPATIENT ESTABLISHED LOW MDM 20-29 MIN Normal [facility] Reminderson 09-25-2022 Reminders - From: Yolanda Mauro To: HELIO Whitfield; Sent: 12/07/2021 15:46:40 EDT Show up: 04/08/2022 14:46:00 EST Subject: JAYDA prior to 6 mos Due Date/Time: 05/08/2022 14:46:00 EST Reminder Message Patient needs JAYDA prior to 6 month appointment. wants JAYDA done at [facility]. orders faxed to [facility] patients appt was rescheduled to 08/20/22. pt aware to have testing done prior. Patient cancelled august appointment and has not rescheduled. diagnosis is not trackable Normal [facility] CT LUNG CANCER SCREENINGon 0 06-30-2022 [...] by: HAIR DIETZ Date: 2022-06-30 14:46 Normal [facility] NM STRESS/REST MULTIon 06-21 [place] STRESS/REST MULTI Patient: SUMMER SNOW Exam Date: 06/21/2022 : 1960 Gender:F Ordering : DR BRANDT MCNAMARA M.D. Admission #: [id number] Family : DR SON IRIZARRY D.O. Order #: [id number] CLICK HERE TO VIEW EXAM RADIOLOGY REPORT PROCEDURE: RADIONUCLIDE IMAGING STRESS/REST MULTI COMPARISON: [place] STRESS/REST MULTI, 06/23/2020. [place] STRESS/REST MULTI, 04/03/2017. INDICATIONS: Dyspnea TECHNIQUE: Exam [...] Dietz MD on 06/25/2022 at 09:33 Normal [facility] Lab Reportson 06-01-2022 Lab Reports [id number]#[id number]:127 Normal [facility] ECHOCARDIO M/2D COMPLETEon 0 05-31-2022 ECHOCARDIO M/2D COMPLETE Patient: PAM SNOW Exam Date: 05/31/2022 : 1960 Gender:F Ordering : DR BRANDT MCNAMARA M.D. Admission #: [id number] Family : Order #: [id number] CLICK HERE TO VIEW EXAM ECHOCARDIOGRAM REPORT [...] Mcnamara M.D. on 05/31/2022 at 22:12 Normal [facility] Provider Letter [facility] [place] 05-29 Provider Letter [facility] May 29, 2022 PAM HORTENCIA [address] [place] [address] SNOW, PAM S 1960 Dear Pam Snow , We have been trying to reach you with no success. It is important that you return our call upon receiving this letter. Also, at the time of your call, please provide us with your current information. Thank you for your prompt attention to this matter. Sincerely, [facility] [address] [facility] [place], [place], [address] [facility] Provider Letter [facility] May 29, 2022 PAM SNOW [address] [facility] [place] [address] SNOW, PAM S 1960 Dear Pam Snow , We have been trying to reach you with no success. It is important that you return our call regarding your _ upon receiving this letter. Also, at the time of your call, please provide us with your current information. Thank you for your prompt attention to this matter. Sincerely, [facility] [address] [facility] [place], [place], [address] [facility] Lab Reportson 05-22-2022 Lab Reports [id number]#[id number]:12 7 [facility] Lab Reports [id number]#[id number]:12 7 [facility] PROF CHEM 8 (BAS METB)on Anion gap [Moles/Vol] 11.0 mmol/L [facility] Comment on above: Performed By: #### C KATYA, NA, CA, URIC, BUN, K, CO2, CL #### [facility] [address] [address] [address] Cesar Francis Calcium [Mass/Vol] 9.4 mg/dL Normal 8.5-10.1 [facility] Comment on above: Performed By: #### C KATYA, NA, CA, URIC, BUN, K, CO2, CL #### [facility] [address] [address] [address] Cesar Francis Chloride [Moles/Vol] 101 mmol/L Normal 98-107 [facility] Comment on above: Performed By: #### C KATYA, NA, CA, URIC, BUN, K, CO2, CL #### [facility] [address] [address] [address] Cesar Francis CO2 [Moles/Vol] 28.3 mmol/L Normal 21.0-32.0 [facility] Comment on above: Performed By: #### C KATYA, NA, CA, URIC, BUN, K, CO2, CL #### [facility] [address] [address] [address] Cesar Francis Creatinine [Mass/Vol] 0.72 mg/dL Normal 0.55-1.02 [facility] Comment on above: Performed By: #### C KATYA, NA, CA, URIC, BUN, K, CO2, CL #### [facility] [address] [address] [address] Cesar Francis EGFR-AF TONGAN >60 Normal >=60 [facility] Comment on above: Performed By: #### C KATYA, NA, CA, URIC, BUN, K, CO2, CL #### [facility] [address] [address] [address] Cesar Francis EGFR-NON AF TONGAN >60 Normal >=60 [facility] Comment on above: Performed By: #### C KATYA, NA, CA, URIC, BUN, K, CO2, CL #### [facility] [address] [address] [address] Cesar Francis Glucose [Mass/Vol] 92 mg/dL Normal 74-106 [facility] Comment on above: Performed By: #### C KATYA, NA, CA, URIC, BUN, K, CO2, CL #### [facility] [address] [address] [address] Cesar Francis Potassium [Moles/Vol] 3.3 mmol/L Critically low 3.5-5.1 [facility] Comment on above: Performed By: #### C KATYA, NA, CA, URIC, BUN, K, CO2, CL #### [facility] [address] [address] [address] Cesar Francis Sodium [Moles/Vol] 137 mmol/L Normal 136-145 [facility] Comment on above: Performed By: #### C KATYA, NA, CA, URIC, BUN, K, CO2, CL #### [facility] [address] [address] [address] Cesar Francis Urea nitrogen [Mass/Vol] 14.0 mg/dL Normal 7.0-18.0 [facility] Comment on above: Performed By: #### C KATYA, NA, CA, URIC, BUN, K, CO2, CL #### [facility] [address] [address] [address] Cesar Francis Urea nitrogen/Creatinine [Mass ratio] 19.4 mg/mg Normal [facility] Comment on above: Performed By: #### C KATYA, NA, CA, URIC, BUN, K, CO2, CL #### [facility] [address] [place] [address] Dr. Cesar Francis Reminderson 05-22-2022 Reminders - From: Amisha Scott To: HELIO - Recallmonet Whitfield; Sent: 12/07/2021 15:54:24 EDT Show up: 04/20/2022 15:53:00 EST Subject: JAYDA needed May 2022 Due Date/Time: 06/07/2022 15:53:00 EDT Reminder/Recall This pt needs Renal US prior to 06/07/[address] Whitfield in [place] - pt uses [facility] verify this with pt called patient to verify if she would like orders sent to [facility], left msg on voicemail for her to call office. Patient called back I will send order over to [facility]. Normal [facility] PTH INTACTon 05-19-2022 PTH, Intact 22 pg/mL Normal 15-65 [facility] Comment on above: Performed By: #### C KATYA, NA, CA, URIC, BUN, K, CO2, CL #### [facility] [address] [place] [address] Dr. Cesar Francis BUNon 05-18-2022 Urea nitrogen [Mass/Vol] 16.0 mg/dL Normal 7.0-18.0 [facility] Comment on above: Performed By: #### C KATYA, NA, CA, URIC, BUN, K, CO2, CL #### [facility] [address] [place] [address] Dr. Cesar Francis CALCIUMon 05-18-2022 Calcium [Mass/Vol] 9.2 mg/dL Normal 8.5-10.1 [facility] Comment on above: Performed By: #### C KATYA, NA, CA, URIC, BUN, K, CO2, CL #### [facility] [address] [place] [address] Dr. Cesar Francis CHLORIDEon 05-18-2022 Chloride [Moles/Vol] 104 mmol/L Normal 98-107 [facility] Comment on above: Performed By: #### C KATYA, NA, CA, URIC, BUN, K, CO2, CL #### [facility] [address] [place] [address] Dr. Cesar Francis CO2on 05-18-2022 CO2 [Moles/Vol] 28.4 mmol/L Normal 21.0-32.0 [facility] Comment on above: Performed By: #### C KATYA, NA, CA, URIC, BUN, K, CO2, CL #### [facility] [address] [place] [address] Dr. Cesar Francis CREATININEon 05-18-2022 Creatinine [Mass/Vol] 0.63 mg/dL Normal 0.55-1.02 [facility] Comment on above: Performed By: #### C KATYA, NA, CA, URIC, BUN, K, CO2, CL #### [facility] [address] [address] [address] Cesar Francis EGFR-AF TONGAN >60 Normal >=60 [facility] Comment on above: Performed By: #### C KATYA, NA, CA, URIC, BUN, K, CO2, CL #### [facility] [address] [address] [address] Cesar Francis EGFR-NON AF TONGAN >60 Normal >=60 [facility] Comment on above: Performed By: #### C KATYA, NA, CA, URIC, BUN, K, CO2, CL #### [facility] [address] [address] [address] Cesar Francis MG MAMM SCREEN 3D ISAIAH CADon 05-18-2022 MG MAMM SCREEN 3D ISAIAH CAD Patient: PAM SNOW Exam Date: 05/18/2022 : 1960 Gender:F Ordering : DR DALE WILSON . Admission #: [id number] Family : RACHELLE WHITFIELD . Order #: [id number] CLICK HERE TO VIEW EXAM RADIOLOGY REPORT [...] lung cancer at age 54. LOCATION: [facility] BREAST COMPOSITION: Almost entirely fatty. FINDINGS: DIAGNOSTIC [...] Dietz MD on 05/18/2022 at 09:16 Normal [facility] NAon 05-18-2022 Sodium [Moles/Vol] 140 mmol/L Normal 136-145 [facility] Comment on above: Performed By: #### C KATYA, NA, CA, URIC, BUN, K, CO2, CL #### [facility] [address] [address] [address] Cesar Francis POTASSIUMon 05-18-2022 Potassium [Moles/Vol] 2.7 mmol/L Critically low 3.5-5.1 [facility] Comment on above: Performed By: #### C KATYA, NA, CA, URIC, BUN, K, CO2, CL #### [facility] [address] [address] [address] Cesar Francis URIC ACID SERUMon 05-18-2022 Urate [Mass/Vol] 6.0 mg/dL Normal 2.6-6.0 [facility] Comment on above: Performed By: #### C KATYA, NA, CA, URIC, BUN, K, CO2, CL #### [facility] [address] [address] [address] Cesar Francis US KIDNEYSon 05-18-2022 US KIDNEYS [facility]IN[facility] HISTORY: Kidney stone COMPARISON: No relevant comparison [...] by: LIZET MALCOLM Date: 2022-05-18 08:47 Normal [facility] Formson 04-17-2022 Forms [id number]#[id number]:12 7 Normal [facility] Reminderson 04-17-2022 Reminders - From: Yolanda Mauro To: Cristiane Grier; Sent: 12/07/2021 15:51:13 EDT Show up: 04/08/2022 14:51:00 EST Subject: Merline Due Date/Time: 05/08/2022 14:51:00 EST Reminder Message Patient needs LithoLink mailed to her prior to 6 month appointment. Litholink order faxed 04/17/22 Normal [facility] XR CHEST 2 Von 04-17-2022 XR [...] CHERRI HAMILTON Date: 2022-04-17 17:56 Normal [facility] CBC AUTO DIFFon 02-09-2022 BASO # 0.1 103/ul Normal 0.0-0.1 [facility] Comment on above: Performed By: #### C KATYA, NA, CA, URIC, BUN, K, CO2, CL #### [facility] [address] [place] [address] Dr. Cesar Francis Basophils/100 WBC (Bld) 2.3 % Critically high 0.2-2.0 [facility] Comment on above: Performed By: #### C KATYA, NA, CA, URIC, BUN, K, CO2, CL #### [facility] [address] [place] [address] Dr. Cesra Francis EO # 0.3 103/ul Normal 0.0-0.7 [facility] Comment on above: Performed By: #### C KATYA, NA, CA, URIC, BUN, K, CO2, CL #### [facility] [address] [place] [address] Dr. Cesar Francis Eosinophils/100 WBC (Bld) 4.1 % Normal 0.9-7.0 [facility] Comment on above: Performed By: #### C KATYA, NA, CA, URIC, BUN, K, CO2, CL #### [facility] [address] [place] [address] Dr. Cesar Francis Erythrocyte distribution width (RBC) [Ratio] 12.8 % Normal 11.0-15.0 [facility] Comment on above: Performed By: #### C KATYA, NA, CA, URIC, BUN, K, CO2, CL #### [facility] [address] [place] [address] Dr. Cesar Francis Hematocrit (Bld) [Volume fraction] 45.4 % Normal 36.0-48.0 [facility] Comment on above: Performed By: #### C KATYA, NA, CA, URIC, BUN, K, CO2, CL #### [facility] [address] [place] [address] Dr. Cesar Francis Hemoglobin (Bld) [Mass/Vol] 15.6 g/dL Normal 12.0-16.0 [facility] Comment on above: Performed By: #### C KATYA, NA, CA, URIC, BUN, K, CO2, CL #### [facility] [address] [place] [address] Dr. Cesar Francis IG # 0.01 10e3/ul Normal 0.00-0.03 [facility] Comment on above: Performed By: #### C KATYA, NA, CA, URIC, BUN, K, CO2, CL #### [facility] [address] [place] [address] Dr. Cesar Francis IG % 0.2 % Normal 0.0-0.5 [facility] Comment on above: Performed By: #### C KATYA, NA, CA, URIC, BUN, K, CO2, CL #### [facility] [address] [place] [address] Dr. Cesar Francis LYMPH # 1.6 103/ul Normal 1.2-3.8 [facility] Comment on above: Performed By: #### C KATYA, NA, CA, URIC, BUN, K, CO2, CL #### [facility] [address] [place] [address] Dr. Cesar Francis Lymphocytes/100 WBC (Bld) 26.2 % Normal 20.5-60.0 [facility] Comment on above: Performed By: #### C KATYA, NA, CA, URIC, BUN, K, CO2, CL #### [facility] [address] [place] [address] Dr. Cesar Francis MANUAL DIFF REQ NO Normal [facility] Comment on above: Performed By: #### C KATYA, NA, CA, URIC, BUN, K, CO2, CL #### [facility] [address] [place] [address] Dr. Cesar Francis MCH (RBC) [Entitic mass] 28.6 pg Normal 26.7-34.0 [facility] Comment on above: Performed By: #### C KATYA, NA, CA, URIC, BUN, K, CO2, CL #### [facility] [address] [place] [address] Dr. Cesar Francis MCHC (RBC) [Mass/Vol] 34.4 g/dL Normal 29.9-35.2 [facility] Comment on above: Performed By: #### C KATYA, NA, CA, URIC, BUN, K, CO2, CL #### [facility] [address] [place] [address] Dr. Cesar Francis MCV (RBC) [Entitic vol] 83.3 fL Normal 81.0-99.0 [facility] Comment on above: Performed By: #### C KATYA, NA, CA, URIC, BUN, K, CO2, CL #### [facility] [address] [place] [address] Dr. Cesar Francis MONO # 0.8 103/ul Normal 0.3-0.8 [facility] Comment on above: Performed By: #### C KATYA, NA, CA, URIC, BUN, K, CO2, CL #### [facility] [address] [place] [address] Dr. Cesar Francis Monocytes/100 WBC (Bld) 12.5 % Critically high 1.7-12.0 [facility] Comment on above: Performed By: #### C KATYA, NA, CA, URIC, BUN, K, CO2, CL #### [facility] [address] [place] [address] Dr. Cesar Francis NEUT # 3.3 103/ul Normal 1.4-6.5 [facility] Comment on above: Performed By: #### C KATYA, NA, CA, URIC, BUN, K, CO2, CL #### [facility] [address] [place] [address] Dr. Cesar Francis Neutrophils/100 WBC (Bld) 54.7 % Normal 43.0-75.0 [facility] Comment on above: Performed By: #### C KATYA, NA, CA, URIC, BUN, K, CO2, CL #### [facility] [address] [place] [address] Dr. Cesar Francis Platelet mean volume (Bld) [Entitic vol] 10.6 fL Normal 9.5-13.5 [facility] Comment on above: Performed By: #### C KATYA, NA, CA, URIC, BUN, K, CO2, CL #### [facility] [address] [place] [address] Dr. Cesar Francis PLT 275 103/ul Normal 150-450 [facility] Comment on above: Performed By: #### C KATYA, NA, CA, URIC, BUN, K, CO2, CL #### [facility] [address] [place] [address] Dr. Cesar Francis RBC 5.45 106/ul Critically high 4.20-5.40 [facility] Comment on above: Performed By: #### C KATYA, NA, CA, URIC, BUN, K, CO2, CL #### [facility] [address] [place] [address] Dr. Cesar Francis WBC 6.1 103/ul Normal 4.0-11.0 [facility] Comment on above: Performed By: #### C KATYA, NA, CA, URIC, BUN, K, CO2, CL #### [facility] [address] [address] [address] Cesar Francis LIPID PROFILEon 02-09-2022 CHOL-HDL RATIO NORM SEE BELOW Normal [facility] Comment on above: Result Comment: 3.3 - 4.4 LOW RISK 4.4 - 7.1 AVERAGE RISK 7.1 - 11.0 MODERATE RISK >11.0 HIGH RISK Performed By: #### C KATYA, NA, CA, URIC, BUN, K, CO2, CL #### [facility] [address] [address] [address] Cesar Francis Cholesterol [Mass/Vol] 241 mg/dL Critically high <=200 [facility] Comment on above: Performed By: #### C KATYA, NA, CA, URIC, BUN, K, CO2, CL #### [facility] [address] [place] [address] Dr. Cesar Francis Cholesterol in HDL [Mass/Vol] 66 mg/dL Critically high 40-60 [facility] Comment on above: Performed By: #### C KATYA, NA, CA, URIC, BUN, K, CO2, CL #### [facility] [address] [place] [address] Dr. Cesar Francis Cholesterol in LDL [Mass/Vol] 156.0 mg/dL Normal [facility] Comment on above: Performed By: #### C KATYA, NA, CA, URIC, BUN, K, CO2, CL #### [facility] [address] [place] [address] Dr. Cesar Francis Cholesterol.total/Ch olesterol in HDL [Mass ratio] 3.7 {ratio} Normal [facility] Comment on above: Performed By: #### C KATYA, NA, CA, URIC, BUN, K, CO2, CL #### [facility] [address] [place] [address] Dr. Cesar Francis HDL NORMAL > or = 60 mg/dl - LO W CARDIOVASCULAR RISK <40 mg/dl - HIGH CARDIOVASCULAR RISK Normal [facility] Comment on above: Performed By: #### C KATYA, NA, CA, URIC, BUN, K, CO2, CL #### [facility] [address] [address] [address] Cesar Francis LDL CALC NORMAL SEE BELOW Normal [facility] Comment on above: Result Comment: <100 mg/dl OPTIMAL 100 - 129 mg/dl NEAR OR ABOVE OPTIMAL 130 - 159 mg/dl BORDERLINE HIGH 160 - 189 mg/dl HIGH >190 mg/dl VERY HIGH Performed By: #### C KATYA, NA, CA, URIC, BUN, K, CO2, CL #### [facility] [address] [address] [address] Cesar Francis Triglyceride [Mass/Vol] 95 mg/dL Normal <=150 [facility] Comment on above: Performed By: #### C KATYA, NA, CA, URIC, BUN, K, CO2, CL #### [facility] [address] [place] [address] Dr. Cesar Francis VLDL CALC 19.0 mg/dL Normal [facility] Comment on above: Performed By: #### C KATYA, NA, CA, URIC, BUN, K, CO2, CL #### [facility] [address] [address] [address] Cesar Francis PROF 14(COMP METB)on 022 Albumin [Mass/Vol] 3.6 g/dL Normal 3.4-5.0 [facility] Comment on above: Performed By: #### C KATYA, NA, CA, URIC, BUN, K, CO2, CL #### [facility] [address] [address] [address] Cesar Francis Albumin/Globulin [Mass ratio] 1.0 {ratio} Normal [facility] Comment on above: Performed By: #### C KATYA, NA, CA, URIC, BUN, K, CO2, CL #### [facility] [address] [place] [address] Dr. Cesar Francis ALP [Catalytic activity/Vol] 65 U/L Normal 46-116 [facility] Comment on above: Performed By: #### C KATYA, NA, CA, URIC, BUN, K, CO2, CL #### [facility] [address] [place] [address] Dr. Cesar Francis ALT [Catalytic activity/Vol] 31 U/L Normal 14-59 [facility] Comment on above: Performed By: #### C KATYA, NA, CA, URIC, BUN, K, CO2, CL #### [facility] [address] [place] [address] Dr. Cesar Francis Anion gap [Moles/Vol] 13.2 mmol/L Normal [facility] Comment on above: Performed By: #### C KATYA, NA, CA, URIC, BUN, K, CO2, CL #### [facility] [address] [place] [address] Dr. Cesar Francis AST [Catalytic activity/Vol] 21 U/L Normal 15-37 [facility] Comment on above: Performed By: #### C KATYA, NA, CA, URIC, BUN, K, CO2, CL #### [facility] [address] [place] [address] Dr. Cesar Francis Bilirubin [Mass/Vol] 0.5 mg/dL Normal 0.2-1.0 [facility] Comment on above: Performed By: #### C KATYA, NA, CA, URIC, BUN, K, CO2, CL #### [facility] [address] [place] [address] Dr. Cesar Francis Calcium [Mass/Vol] 9.0 mg/dL Normal 8.5-10.1 [facility] Comment on above: Performed By: #### C KATYA, NA, CA, URIC, BUN, K, CO2, CL #### [facility] [address] [place] [address] Dr. Cesar Francis Chloride [Moles/Vol] 101 mmol/L Normal 98-107 [facility] Comment on above: Performed By: #### C KATYA, NA, CA, URIC, BUN, K, CO2, CL #### [facility] [address] [place] [address] Dr. Cesar Francis CO2 [Moles/Vol] 29.5 mmol/L Normal 21.0-32.0 [facility] Comment on above: Performed By: #### C KATYA, NA, CA, URIC, BUN, K, CO2, CL #### [facility] [address] [place] [address] Dr. Cesar Francis Creatinine [Mass/Vol] 0.71 mg/dL Normal 0.55-1.02 [facility] Comment on above: Performed By: #### C KATYA, NA, CA, URIC, BUN, K, CO2, CL #### [facility] [address] [place] [address] Dr. Cesar Francis EGFR-AF TONGAN >60 Normal >=60 [facility] Comment on above: Performed By: #### C KATYA, NA, CA, URIC, BUN, K, CO2, CL #### [facility] [address] [place] [address] Dr. Cesar Francis EGFR-NON AF TONGAN >60 Normal >=60 [facility] Comment on above: Performed By: #### C KATYA, NA, CA, URIC, BUN, K, CO2, CL #### [facility] [address] [place] [address] Dr. Cesar Francis Globulin (S) [Mass/Vol] 3.5 g/dL Normal [facility] Comment on above: Performed By: #### C KATYA, NA, CA, URIC, BUN, K, CO2, CL #### [facility] [address] [place] [address] Dr. Cesar Francis Glucose [Mass/Vol] 102 mg/dL Normal 74-106 [facility] Comment on above: Performed By: #### C KATYA, NA, CA, URIC, BUN, K, CO2, CL #### [facility] [address] [place] [address] Dr. Cesar Francis Potassium [Moles/Vol] 3.7 mmol/L Normal 3.5-5.1 [facility] Comment on above: Performed By: #### C KATYA, NA, CA, URIC, BUN, K, CO2, CL #### [facility] [address] [place] [address] Dr. Cesar Francis Protein [Mass/Vol] 7.1 g/dL Normal 6.4-8.2 [facility] Comment on above: Performed By: #### C KATYA, NA, CA, URIC, BUN, K, CO2, CL #### [facility] [address] [address] [address] Cesar Francis Sodium [Moles/Vol] 140 mmol/L Normal 136-145 [facility] Comment on above: Performed By: #### C KATYA, NA, CA, URIC, BUN, K, CO2, CL #### [facility] [address] [address] [address] Cesar Francis Urea nitrogen [Mass/Vol] 28.0 mg/dL Critically high 7.0-18.0 [facility] Comment on above: Performed By: #### C KATYA, NA, CA, URIC, BUN, K, CO2, CL #### [facility] [address] [address] [address] Cesar Francis Urea nitrogen/Creatinine [Mass ratio] 39.4 mg/mg Normal [facility] Comment on above: Performed By: #### C KATYA, NA, CA, URIC, BUN, K, CO2, CL #### [facility] [address] [address] [address] Cesar Francis Screenson 12-08-2021 Screens [id number]#[id number]:12 7 Normal [facility] Ambulatory Visit Summaryon 0 12-07-2021 Ambulatory Visit Summary SNOWEMELIA THOMPSONNDA Monet :1960 Visit Date:12/07/2021 Ambulatory Visit Instructions Your Diagnosis Kidney stone Tests Performed Urnls Dip Stick Auto w/o Microscopy POC 78146 XR Abdomen 1 View -- Results Pending [...] Rachelle Whitfield MD Where: [facility] Patient Educationon 12-08-19 22 Patient Education Urology [...] these instructions at home: Medicines ? Take nwmx-yhx-jueyrht and prescription medicines only as told by [...] 08/13/2008 Document Revised: 07/14/2019 Document Reviewed: 07/14/2019 Elsevier Patient Education ? 2019 [employer]. Brenda [facility] Urology Office/Clinic Noteon 12-07-2021 Urology Office/Clinic [...] mos KUB, JAYDA Patient Education Kidney Stones, Kycm-zl-Uimz I, Yolanda Mauro, personally scribed for Dr. [...] Cystoscopy (07/16/2011), Cysto (more content not included)... [facility] Comment on above: Result Comment: Elec tronically Signed By: Nahid KELLY, Rachelle Monroe\.br\Date and Time Signed: 12/07/21 16:44 EDT\.br\Electronically Co-Signed By: Yolanda Mauro\.br\Date and Time Co-Signed: 12/07/21 15:46 EDT Lab Reportson 10-18-2021 Lab Reports [id number]#1.00CD:12 7 [facility] Lab Reportson 10-11-2021 Lab Reports [id number]:12 7 [facility] Lab Reports [id number]:12 7 [facility] PTH INTACTon 10-10-2021 PTH, Intact 13 pg/mL Critically low 15-65 [facility] Comment on above: Performed By: #### C KATYA, NA, CA, URIC, BUN, K, CO2, CL #### [facility] [address] [address] [address] Cesar Francis BUNon 10-09-2021 Urea nitrogen [Mass/Vol] 11.0 mg/dL Normal 7.0-18.0 [facility] Comment on above: Performed By: #### C KATYA, NA, CA, URIC, BUN, K, CO2, CL #### [facility] [address] [address] [address] Cesar Francis CALCIUMon 10-09-2021 Calcium [Mass/Vol] 9.2 mg/dL Normal 8.5-10.1 [facility] Comment on above: Performed By: #### C KATYA, NA, CA, URIC, BUN, K, CO2, CL #### [facility] [address] [place] [address] Dr. Cesar Francis CHLORIDEon 10-09-2021 Chloride [Moles/Vol] 104 mmol/L Normal 98-107 [facility] Comment on above: Performed By: #### C KATYA, NA, CA, URIC, BUN, K, CO2, CL #### [facility] [address] [place] [address] Dr. Cesar Francis CO2on 10-09-2021 CO2 [Moles/Vol] 28.5 mmol/L Normal 21.0-32.0 [facility] Comment on above: Performed By: #### C KATYA, NA, CA, URIC, BUN, K, CO2, CL #### [facility] [address] [place] [address] Dr. Cesar Francis CREATININEon 10-09-2021 Creatinine [Mass/Vol] 0.83 mg/dL Normal 0.55-1.02 [facility] Comment on above: Performed By: #### C KATYA, NA, CA, URIC, BUN, K, CO2, CL #### [facility] [address] [address] [address] Cesar Francis EGFR-AF TONGAN >60 Normal >=60 [facility] Comment on above: Performed By: #### C KATYA, NA, CA, URIC, BUN, K, CO2, CL #### [facility] [address] [place] [address] Dr. Cesar Francis EGFR-NON AF TONGAN >60 Normal >=60 [facility] Comment on above: Performed By: #### C KATYA, NA, CA, URIC, BUN, K, CO2, CL #### [facility] [address] [place] [address] Dr. Cesar Francis NAon 10-09-2021 Sodium [Moles/Vol] 143 mmol/L Normal 136-145 [facility] Comment on above: Performed By: #### C KATYA, NA, CA, URIC, BUN, K, CO2, CL #### [facility] [address] [place] [address] Dr. Cesar Francis PHOSPHORUSon 10-09-2021 Phosphate [Mass/Vol] 2.7 mg/dL Normal 2.6-4.7 [facility] Comment on above: Performed By: #### C KATYA, NA, CA, URIC, BUN, K, CO2, CL #### [facility] [address] [place] [address] Dr. Cesar Francis URIC ACID SERUMon 10-09-2021 Urate [Mass/Vol] 5.8 mg/dL Normal 2.6-6.0 [facility] Comment on above: Performed By: #### C KATYA, NA, CA, URIC, BUN, K, CO2, CL #### [facility] [address] [place] [address] Dr. Cesar Francis PROTIMEon 05-04-2017 INR Coag RelTime (PPP) 1.04 {INR} Normal 0.00-1.20 [facility] Comment on above: Order Comment: CONSE RVATIONList patient's anticoagulants for PT: NONE SPECIFIED Result Comment: Troy mmended therapeutic range is an INR of 2.0-3.0 exceptfor prevention of recurrent acute OK and mechanicalprosthetic heart valve where an INR of 2.5-3.5 isrecommended. Performed By: #### L 300.34589 ####Test performed at: [address] [address] PT SEC 11.0 seconds Normal 9.7-11.5 [facility] Comment on above: Order Comment: CONSE RVATIONList patient's anticoagulants for PT: NONE SPECIFIED Performed By: #### L 300.64285 ####Test performed at: [address] [address] CARDIAC CATHETERIZATIONon CARDIAC CATHETERIZATION PATIENT NAME: ANNELISE SNOW#: [id number]: ANNELISE SNOW#: [id number] OF PROCEDURE: 05/03/2017CARDIAC CATHHISTORY OF PRESENT ILLNESS: [...] was accessedwith a multipurpose needle and a 6-Moroccan sheath inserted. Selective coronaryarteriography was performed using 6-Moroccan JL4 and 6-Moroccan JR4 catheters.Left ventriculography was performed using a 6-Moroccan angled pigtail catheter.At the end of the [...] groove. The [facility] NAME: BEKA SNOW [facility] REC: [id number] [facility] ACCOUNT NUM: [id number]/BED: [place] [id number] : [id number] [address] ATTENDING PHY: Candice Torres MDCARDIAC CATHETERIZATIONPATIENT NAME: ELDON SNOWR#: [id number] contain any significant disease.LEFT VENTRICULOGRAM: The left ventricular injection reveals a normal size leftventricle with normal contractility and normal ejection fraction. There is noangiographic mitral regurgitation.FINAL DIAGNOSIS:1. CAD-luminal irregularities, left main trunk-patent stent in proximal LAD-60-70% mid point. Posterior descending cnegmkifhj-99-48% mid rightcoronary artery.RECOMMENDATION: The circumflex stent will [...] at anappropriate time on the floor. MICHAEL MOREIRA/SEAN/[id number] 25D: 05/03/2017 13:24:11 E/S: Candice Torres MD05/07/17 0850Signature on [facility]St. [facility] PATIENT NAME: BEKA SNOW [facility] REC: [id number] [facility] ACCOUNT NUM: [id number]/BED: [place] [place] [address] : [id number] [address] ATTENDING PHY: Candice Torres MDCARDIAC CATHETERIZATION Normal [facility] CBC W/DIFFon 05-03-2017 BASO ABS 0.1 K/uL Normal 0.0-0.2 [facility] Comment on above: Order Comment: CONSE RVATION Performed By: #### L 200.35177 ####Test performed at: [address] [address] Basophils/100 WBC Auto (Bld) 1.8 % Normal [facility] Comment on above: Order Comment: CONSE RVATION Performed By: #### L 200.42270 ####Test performed at: [address] [address] EOS ABS 0.2 K/uL Normal 0.0-0.5 [facility] Comment on above: Order Comment: CONSE RVATION Performed By: #### L 200.92659 ####Test performed at: [address] [address] Eosinophils/100 leukocytes 2.6 % Normal [facility] Comment on above: Order Comment: CONSE RVATION Performed By: #### L 200.03499 ####Test performed at: [address] [address] Erythrocyte distribution width Auto Ratio (RBC) 13.7 % Normal 11.5-14.5 [facility] Comment on above: Order Comment: CONSE RVATION Performed By: #### L 200.26856 ####Test performed at: [address] [address] Erythrocytes (RBC) 5.06 10*6/uL Normal 3.5-5.5 [facility] Comment on above: Order Comment: CONSE RVATION Performed By: #### L 200.75895 ####Test performed at: [address] [address] Erythrocytes (RBC) 0.000 10*6/uL Normal 0-0.012 [facility] Comment on above: Order Comment: CONSE RVATION Performed By: #### L 200.43600 ####Test performed at: [address] [address] Hematocrit (HCT) 42.6 % Normal 36.0-48.0 [facility] Comment on above: Order Comment: CONSE RVATION Performed By: #### L 200.10426 ####Test performed at: [address] [address] Hemoglobin mass conc (Bld) 14.1 g/dL Normal 12.0-15.0 [facility] Comment on above: Order Comment: CONSE RVATION Performed By: #### L 200.44254 ####Test performed at: [address] [address] IG % 0.3 % Normal [facility] Comment on above: Order Comment: CONSE RVATION Performed By: #### L 200.65193 ####Test performed at: [address] [address] IG ABS 0.02 K/uL Normal 0-0.05 [facility] Comment on above: Order Comment: CONSE RVATION Performed By: #### L 200.46234 ####Test performed at: [address] [address] Lymphocytes 1.5 10*3/uL Normal 1.2-3.5 [facility] Comment on above: Order Comment: CONSE RVATION Performed By: #### L 200.66747 ####Test performed at: [address] [address] Lymphocytes/100 leukocytes 20.2 % Normal [facility] Comment on above: Order Comment: CONSE RVATION Performed By: #### L 200.70686 ####Test performed at: [address] [address] MCH 27.9 pg Normal 25.4-34.6 [facility] Comment on above: Order Comment: CONSE RVATION Performed By: #### L 200.25372 ####Test performed at: [address] [address] MCHC mass conc (RBC) 33.1 g/dL Normal 31.5-36.5 [facility] Comment on above: Order Comment: CONSE RVATION Performed By: #### L 200.99672 ####Test performed at: [address] [address] MCV 84.2 fL Normal 79.0-98.0 [facility] Comment on above: Order Comment: CONSE RVATION Performed By: #### L 200.98508 ####Test performed at: [address] [address] MONO ABS 0.7 K/uL Normal 0.0-1.0 [facility] Comment on above: Order Comment: CONSE RVATION Performed By: #### L 200.77880 ####Test performed at: [address] [address] Monocytes/100 leukocytes 9.4 % Normal [facility] Comment on above: Order Comment: CONSE RVATION Performed By: #### L 200.26698 ####Test performed at: [address] [address] Neutrophils 4.8 10*3/uL Normal 1.4-6.6 [facility] Comment on above: Order Comment: CONSE RVATION Performed By: #### L 200.99412 ####Test performed at: [address] [address] Neutrophils/100 WBC Auto (Bld) 65.7 % Normal [facility] Comment on above: Order Comment: CONSE RVATION Performed By: #### L 200.61230 ####Test performed at: [address] [address] NRBC % 0.0 /100 WBC Normal 0-0.2 [facility] Comment on above: Order Comment: CONSE RVATION Performed By: #### L 200.17319 ####Test performed at: [address] [address] Platelet mean volume (PMV) 11.9 fL Normal 8.7-12.4 [facility] Comment on above: Order Comment: CONSE RVATION Performed By: #### L 200.17792 ####Test performed at: [address] [address] Platelets 207 10*3/uL Normal 140-440 [facility] Comment on above: Order Comment: CONSE RVATION Performed By: #### L 200.76422 ####Test performed at: [address] [address] WBC (Leukocytes) 7.2 10*3/uL Normal 3.9-11.0 [facility] Comment on above: Order Comment: CONSE RVATION Performed By: #### L 200.55723 ####Test performed at: [address] [address] COMP META PANELon 05-03-2017 Alanine aminotransferase (ALT) 17 U/L Normal 13-61 [facility] Comment on above: Order Comment: CONSE RVATIONIs patient fasting? UNKNOWN Performed By: #### L 500.96720, L500.30743, L500.16150, L500.41512 ####Test performed at: [address] [address] Albumin 3.4 g/dL Normal 3.4-5.0 [facility] Comment on above: Order Comment: CONSE RVATIONIs patient fasting? UNKNOWN Performed By: #### L 500.38837, L500.18019, L500.78490, L500.09867 ####Test performed at: [address] [address] ALK PHOS TOTAL 96 U/L Normal 45-117 [facility] Comment on above: Order Comment: CONSE RVATIONIs patient fasting? UNKNOWN Performed By: #### L 500.92008, L500.44684, L500.84569, L500.79630 ####Test performed at: [place] [id number] Aspartate aminotransferase (AST) 15 U/L Normal 15-37 [facility] Comment on above: Order Comment: CONSE RVATIONIs patient fasting? UNKNOWN Performed By: #### L 500.41603, L500.67089, L500.13164, L500.28239 ####Test performed at: [place] [id number] BILI TOTAL 0.7 mg/dL Normal 0.2-1.0 [facility] Comment on above: Order Comment: CONSE RVATIONIs patient fasting? UNKNOWN Performed By: #### L 500.70330, L500.58685, L500.27256, L500.38739 ####Test performed at: [place] [id number] Calcium 8.3 mg/dL Low 8.5-10.1 [facility] Comment on above: Order Comment: CONSE RVATIONIs patient fasting? UNKNOWN Performed By: #### L 500.20663, L500.08310, L500.55966, L500.21188 ####Test performed at: [address] [address] Chloride 108 mmol/L High 98-107 [facility] Comment on above: Order Comment: CONSE RVATIONIs patient fasting? UNKNOWN Performed By: #### L 500.53861, L500.42826, L500.95674, L500.57818 ####Test performed at: [address] [address] CO2 30 mmol/L Normal 21-32 [facility] Comment on above: Order Comment: CONSE RVATIONIs patient fasting? UNKNOWN Performed By: #### L 500.48722, L500.78226, L500.88078, L500.19798 ####Test performed at: [address] [address] Creatinine 0.648 mg/dL Normal 0.550-1.020 [facility] Comment on above: Order Comment: CONSE RVATIONIs patient fasting? UNKNOWN Performed By: #### L 500.32051, L500.29151, L500.91054, L500.42497 ####Test performed at: [address] [address] Glucose mass conc 94 mg/dL Normal 74-106 [facility] [facility] Comment on above: Order Comment: CONSE RVATIONIs patient fasting? UNKNOWN Performed By: #### L 500.95792, L500.89476, L500.39033, L500.79758 ####Test performed at: [address] [address] Potassium molar conc 4.2 mmol/L Normal 3.5-5.1 [facility] Comment on above: Order Comment: CONSE RVATIONIs patient fasting? UNKNOWN Performed By: #### L 500.32797, L500.94994, L500.18087, L500.84203 ####Test performed at: [address] [address] Protein 6.4 g/dL Normal 6.4-8.2 [facility] Comment on above: Order Comment: CONSE RVATIONIs patient fasting? UNKNOWN Performed By: #### L 500.63235, L500.21885, L500.66168, L500.58735 ####Test performed at: [place] [address] Sodium 142 mmol/L Normal 136-145 [facility] Comment on above: Order Comment: CONSE RVATIONIs patient fasting? UNKNOWN Performed By: #### L 500.72829, L500.93542, L500.24522, L500.86142 ####Test performed at: [place] [address] Urea nitrogen 10 mg/dL Normal 7-18 [facility] Comment on above: Order Comment: CONSE RVATIONIs patient fasting? UNKNOWN Performed By: #### L 500.19616, L500.48398, L500.56513, L500.26884 ####Test performed at: [place] [address] Cardiology Progress Noteon 0 05-03-2017 Cardiology Progress Note [facility] Pt Name: QUE SNOWA[address] MR#: [id number], [place] [address] ACCT: [id number] NOTE - Cardiology : 59Service Date: 05/04/17 1131NAME: ANNELISE SNOW#: [id number] OF SERVICE: 05/04/2017CARDIOLOGY PROGRESS NOTESUBJECTIVE: Mrs. Snow [...] me with jason 1 month. CANDICE TORRES, MDRJS/[facility]/[id number]: 05/04/2017 11:31:37 eSign Date and TimeSteele,Candice Blanca MD Signature on File 05/04/17 1156 Normal [facility] EKGon 05-03-2017 EKG Acquired on 05/03/19 18 0957Vent. Rate : 055 BPM Atrial Rate : 055 BPMP-R Int : 188 ms QRS Dur : 080 msQT Int : 396 ms P-R-T Axes : 058 062 055 degreesQTc Int : 378 msSinus bradycardiaOtherwise normal ECGNo previous ECGs availableConfirmed by CANDICE TORRES MD ([id number]) on 05/04/2017 11:16:47 AMReferred By: Confirmed By:CANDICE TORRES [id number] 2017 [facility] PT NAME: ANNELISE SNOW#: [id number] [place] [address] ACCT: [id number]: 59EKG REPORT Normal [facility] EST. CREAT CLRon 05-03-2017 Creatinine 104.424 ML/MIN Normal [facility] Comment on above: Order Comment: CONSE RVATIONIs patient fasting? UNKNOWN Result Comment: This result is an ESTIMATED blood creatinine clearance valuewhich is derived from the patient age, sex, weight, andprevious blood creatinine result. Performed By: #### L 500.56565, L500.59605, L500.18764, L500.26119 ####Test performed at: [place] [address] GFR ESTIMATEon 05-03-2017 IF AMER > 60 Normal > 60 [facility] Comment on above: Order Comment: CONSE RVATIONIs patient fasting? UNKNOWN Result Comment: eGFR (Estimated GFR) Units of measure:mL/min/1.73 meters sq.*CALCULATION REVISED 12/28/2014;IDMS-traceable MDRD equationeGFR is derived from the reexpressed MDRD Study equationusing the following parameters: serum creatinine, age,gender and race. An eGFR<60 mL/min/1.73m2 for >3 monthsis consistent with chronic kidney disease. Refer to KDOQIguidelines for clinical interpretation. Performed By: #### L 500.88060, L500.31387, L500.07283, L500.21367 ####Test performed at: [place] [address] IF non-AFR AMER > 60 Normal > 60 [facility] Comment on above: Order Comment: CONSE RVATIONIs patient fasting? UNKNOWN Performed By: #### L 500.57406, L500.08684, L500.42937, L500.52181 ####Test performed at: [place] [address] LIPID PROFILEon 05-03-2017 Cholesterol 255 mg/dL High <200 [facility] Comment on above: Order Comment: CONSE RVATIONIs patient fasting? UNKNOWN Result Comment: <200 mg/dL (Desirable) 200-240 mg/dL (Borderline) >240 mg/dL (High Risk) Performed By: #### L 500.29912, L500.41254, L500.78950, L500.30616 ####Test performed at: [place] [address] HDL Cholesterol 51 mg/dL Normal 40-60 [facility] Comment on above: Order Comment: CONSE RVATIONIs patient fasting? UNKNOWN Performed By: #### L 500.51644, L500.42007, L500.29249, L500.01823 ####Test performed at: [place] [id number] LDL Cholesterol 188 mg/dL High 60-130 [facility] Comment on above: Order Comment: CONSE RVATIONIs patient fasting? UNKNOWN Performed By: #### L 500.37559, L500.31614, L500.19278, L500.11522 ####Test performed at: [place] [address] Triglyceride 99 mg/dL Normal <150 [facility] Comment on above: Order Comment: CONSE RVATIONIs patient fasting? UNKNOWN Result Comment: <150 mg/dL (Normal) 150-199 mg/dL (Borderline) 200-499 mg/dL (High) >500 mg/dL (Very High) Performed By: #### L 500.58448, L500.83930, L500.83417, L500.76110 ####Test performed at: [place] [address] PROTIMEon 05-03-2017 INR Coag RelTime (PPP) 1.06 {INR} Normal 0.00-1.20 [facility] Comment on above: Order Comment: CONSE RVATIONList patient's anticoagulants for PT: HEPARIN Result Comment: Troy mmended therapeutic range is an INR of 2.0-3.0 exceptfor prevention of recurrent acute OK and mechanicalprosthetic heart valve where an INR of 2.5-3.5 isrecommended. Performed By: #### L 300.31176 ####Test performed at: [place] [id number] PT SEC 11.2 seconds Normal 9.7-11.5 [facility] Comment on above: Order Comment: CONSE RVATIONList patient's anticoagulants for PT: HEPARIN Performed By: #### L 300.42933 ####Test performed at: [place] [address] Vital Signs Date Time Vital Sign Value Performing Clinician Arti cotton 08-15-2023 09:13-0400 Body height 165.1 cm [facility] 08-15-2023 09:13-0400 Body mass index (BMI) [Ratio] 26.6 kg/m2 [facility] 08-15-2023 09:13-0400 Body weight 72.74 kg [facility] 08-15-2023 09:13-0400 Diastolic blood pressure 69 mm[Hg] [facility] 08-15-2023 09:13-0400 Heart rate 60 /min [facility] 08-15-2023 09:13-0400 Respiratory rate 12 /min [facility] 08-15-2023 09:13-0400 Systolic blood pressure 118 mm[Hg] [facility] 06-05-2023 08:38-0400 Body height 165.1 cm [facility] 06-05-2023 08:38-0400 Body mass index (BMI) [Ratio] 26.8 kg/m2 [facility] 06-05-2023 08:38-0400 Body weight 73.02 kg [facility] 06-05-2023 08:38-0400 Diastolic blood pressure 76 mm[Hg] [facility] 06-05-2023 08:38-0400 Heart rate 73 /min [facility] 06-05-2023 08:38-0400 Respiratory rate 12 /min [facility] 06-05-2023 08:38-0400 Systolic blood pressure 124 mm[Hg] [facility] 06-19-2021 14:55-0400 Blood Pressure Location Rachelle Whitfield [facility] 06-19-2021 14:55-0400 Diastolic blood pressure 78 mm[Hg] Rachelle Whitfield [facility] 06-19-2021 14:55-0400 Heart rate 78 /min Rachelle Lue [facility] 06-19-2021 14:55-0400 Respiratory rate 16 /min Rachelle Lue [facility] 06-19-2021 14:55-0400 Systolic blood pressure 115 mm[Hg] Rachelle Lue [facility] Encounters Encounter Date Encounter Type Care Provider Facility Start: 10-14-2023 End: 10-14-2023 ambulatory NADIA REAL-SELDOVIA Not Available Start: 09-30-2023 End: 09-30-2023 ambulatory RUFINO B APLING Not Available Start: 09-09-2023 End: 09-09-2023 ambulatory DALE KATIE Not Available Start: 09-04-2023 End: 09-04-2023 ambulatory RUFINO B APLING Not Available Start: 08-28-2023 End: 08-28-2023 Evaluation and management of inpatient BACILIO Pratt [facility] Start: 08-28-2023 End: 08-28-2023 Evaluation and management of inpatient LORRAINE Pratt [facility] Start: 08-15-2023 End: 08-15-2023 ambulatory [facility] Work Phone: Start: 08-15-2023 End: 08-15-2023 Patient encounter procedure [facility] Work Phone: Start: 08-07-2023 End: 08-07-2023 ambulatory [facility] Start: 08-07-2023 End: 08-07-2023 Encounter for preprocedural cardiovascular examination [facility] Start: 08-01-2023 Encounter for other preprocedural examination LORRAINE [facility] Start: 08-01-2023 End: 08-01-2023 [facility] Start: 07-30-2023 End: 07-30-2023 ambulatory LORRAINE RAYA Not Available Start: 07-22-2023 End: 07-22-2023 ambulatory LORRAINE RAYA Not Available Start: 07-16-2023 End: 07-16-2023 ambulatory LORRAINE RAYA Not Available Start: 06-05-2023 End: 06-05-2023 ambulatory [facility] Work Phone: Start: 06-05-2023 End: 06-05-2023 Encounter for general adult medical examination without abnormal findings [facility] Start: 06-05-2023 End: 06-05-2023 Patient encounter procedure [facility] Work Phone: Start: 05-31-2023 Non-patient / Non-visit [facility] Work Phone: Start: 05-08-2023 Non-patient / Non-visit [facility] Work Phone: Start: 05-08-2023 Non-patient / Non-visit [facility] Work Phone: Start: 05-07-2023 End: 05-07-2023 ambulatory ABI GIBBS Not Available Start: 04-30-2023 End: 04-30-2023 ambulatory LORRAINE Pratt JOSEPHINE Not Available Start: 04-09-2023 End: 04-09-2023 ambulatory LORRAINE Pratt JOSEPHINE Not Available Start: 04-01-2023 End: 04-01-2023 ambulatory ABI GIBBS Not Available Start: 03-26-2023 Patient encounter procedure [facility] Start: 03-18-2023 End: 03-18-2023 ambulatory ABI GIBBS Not Available Start: 01-30-2023 End: 01-30-2023 ambulatory KELLIE [facility] Start: 08-20-2022 ambulatory Rachelle Herberte Facility:[facility] Start: 06-30-2022 End: 07-01-[address] HAIR DIETZ Facility:[facility] Start: 06-21-2022 End: 06-22-[address] HAIR DIETZ Facility:[facility] Start: 06-20-2022 ambulatory BRANDT Fryei ty:[facility] Start: 06-09-2022 ambulatory BRANDT Fryei ty:[facility] Start: 05-31-2022 End: 06-01-2022 ambulatory BRANDT MCNAMARA Facility:[facility] Start: 05-22-2022 End: 05-23-2022 ambulatory RACHELLE M LUE . Facility:[facility] Start: 05-18-2022 End: 05-19-2022 ambulatory RACHELLE M LUE . Facility:[facility] Start: 04-17-2022 End: 04-18-[address] SON IRIZARRY Facility:[facility] Start: 02-15-2022 Encounter for genera l adult medical examination without abnormal findings DR SON IRIZARRY [facility] Start: 02-09-2022 End: 02-10-[address] SON IRIZARRY Facility:[facility] Start: 02-09-2022 End: 02-10-2022 Encounter for general adult medical examination without abnormal findings DR SON IRIZARRY Facility:[facility] Start: 12-07-2021 End: 12-08-2021 ambulatory Rachelle M. Lue Facility:[facility] Start: 12-07-2021 End: 12-07-2021 Patient encounter procedure Rachelle M. Piedade [facility] Start: 10-09-2021 End: 10-10-2021 ambulatory RACHELLE M LUE . Facility:[facility] Start: 06-19-2021 End: 06-19-2021 Patient encounter procedure Rachelle M. Lue [facility] Start: 05-03-2017 End: 05-04-2017 Evaluation and management of inpatient Family Physician Unavailable Facility:[facility] Procedures Date Procedure Procedure Detail Performing [...] wave lithotripsy of calculus of kidney Rachelle Whitfield Comment on above: Lt Hysterectomy Rachelle Whitfield Hysterectomy Rachelle Whitfield kidney surgery Rachelle Whitfield Placement of stent i n cardiac conduit Rachelle Whitfield Comment on above: x2 stents Rachelle Whitfield Plan of Treatment Date Care Activity Detail Author Start: 06-05-2023 Patient referral [facility] Work Phone: Patient referral [facility] Work Phone: Immunizations Immunization Date Immunization Notes Care Provider Fa cility NEGATED: Highlighted row has not occurred!03-18-2019 influenza virus vaccine, live, attenuated, for intranasal use Rachelle Whitfield [facility] Payers Date Payer Category Payer Private Health Insurance [id number] 1960 Self-pay [id number] 1960 Unknown [id number] 1960 Unknown [id number] 2.16.84 0.1.744790.3.579.2.593 1959 Unknown [id number] 2.16.84 0.1.875767.3.579.2.593 1959 Unknown [id number] 2.16.84 0.1.486950.3.579.2.593 1959 Unknown [id number] 2.16.84 0.1.996546.3.579.2.593 1959 Unknown [id number] 2.16.84 0.1.397009.3.579.2.593 1959 Unknown [id number] 2.16.84 0.1.384965.3.579.2.593 1959 Unknown [id number] 2.16.84 0.1.222705.3.579.2.593 1959 Unknown [id number] 2.16.84 0.1.141557.3.579.2.593 1959 Unknown [id number] 2.16.84 0.1.499351.3.579.2.593 1959 Unknown [id number] 2.16.84 0.1.223269.3.579.2.593 1959 Unknown [id number] 2.16.84 0.1.404183.3.579.2.593 1959 Unknown [id number] 2.16.8 40.1.584926.3.579.2.727 1959 Unknown [id number] 2.16.8 40.1.564036.3.579.2.727 1959 Unknown [id number] 2.16.8 40.1.580908.3.579.2.1286 1959 Unknown [id number] 2.16.8 40.1.646432.3.579.2.1286 1959 Unknown [id number] 2.16.8 40.1.952347.3.579.2.1286 1959 Unknown [id number] 2.16.8 40.1.750476.3.579.2.1286 1959 Unknown [id number] 2.16.8 40.1.407912.3.579.2.1286 1959 Unknown [id number] 2.16.8 40.1.462655.3.579.2.1286 1959 Unknown [id number] 2.16.84 0.1.747396.3.579.2.1259 1959 Unknown [id number] 2.16.84 0.1.185884.3.579.2.1259 1959 Unknown [id number] 2.16.84 0.1.530834.3.579.2.1259 1959 Unknown [id number] 2.16.84 0.1.968824.3.579.2.1259 1959 Unknown [id number] 2.16.84 0.1.412143.3.579.2.1259 1959 Unknown [id number] 2.16.84 0.1.173372.3.579.2.1259 1959 Unknown [id number] 2.16.84 0.1.790854.3.579.2.1259 1959 Unknown [id number] 2.16.84 0.1.283309.3.579.2.1259 1959 Unknown [id number] 2.16.84 0.1.302948.3.579.2.1259 1959 Unknown [id number] 2.16.84 0.1.014352.3.579.2.1259 1959 Unknown [id number] 2.16.84 0.1.873988.3.579.2.1259 1959 Unknown [id number] 2.16.84 0.1.679693.3.579.2.1259 1959 Unknown [id number] 2.16.84 0.1.384735.3.579.2.1259 1959 Unknown [id number] 2.16.840 .1.273242.3.579.2.1259 Self-pay Self Pay [id number] Social History Date Type Detail Facility Start: 02-05-2017 End: 06-19-2021 Tobacco smoking status Ex-smoker (finding) [facility] Sex Assigned At Female [facility] Start: 1960 Sex Assigned At Female F [facility] Functional Status Date Assessment Result Facility 12-07-2021 Functional Status N/A [facility] Clinical Notes 06-19-2021 to 08-07-2023 Note Date & Type Note Facility 08-07-2023 Note MD Cardiology - [facility] Subjective Pam Snow is a 63 y.o. year old female patient being seen for CAD, statin intolerance, and stable angina. She needs cleared for shoulder surgery, scheduled 08/[address] Raya. She had EKG last week at [facility]. She had routine labs with lipid [...] Recurrent sinus infections Coronary artery disease of [place] artery of [place] heart with stable angina pectoris (CMS/HCC) Statin [...] bronchitis, simple (CMS/HCC) GERD (gastroesophageal reflux disease) skilled nursing (current) use of inhaled steroids Syncope Family History Problem Relation Name Age of Onset Other (valve replacement) Mother Coronary artery disease Sister Peripheral vascular disease Sister Coronary artery disease Brother Heart failure Brother Atrial fibrillation Brother Social History Tobacco Use Smoking status: Former Types: Cigarettes Quit date: 2009 Years since quittin.4 Smokeless tobacco: Never ELICIA Orozco is seen in follow up. She is [...] Judgment: Judgment normal. Allergies Allergies Allergen Reactions Hkttrsj-Weh-Fpb Reductase Inhibitors Unknown Medications Current Outpatient Medications: aspirin 81 mg EC tablet, Take 81 mg by mouth in the morning., Disp: , Rfl: buPROPion XL (Wellbutrin XL) 300 mg 24 hr tablet, , Disp: , Rfl: cyanocobalamin (Vitamin B-12) 1,000 mcg/mL injection, , Disp: , Rfl: tqvqrzkkezh-kubfmozar-oimupugw (Trelegy Ellipta) 100-62.5-25 mcg blister with device, 1 puff 1 (one) time each day at the same time., Disp: , Rfl: hydroCHLOROthiazide (HYDRODiuril) 25 mg ta (more content not included)... [facility] 01-30-2023 Note Currently treated wi th praluent injection [facility] 01-30-2023 Note Coronary artery dise ase is stable Continue GDMT- ASA, praluent continue risk factor modifications- heart healthy diet, regular exercise as tolerated and continue all medications. [facility] 01-30-2023 Note Hypertension is curr ently well controlled 116/76 Continue all medications- hydrochlorothiazide [facility] 01-30-2023 Note Lipid abnormalities are stable with praluent use r/t her being intolerant of statins and zetia. She is to send most recent lipid level [facility] 01-30-2023 Note Denied any angina since last vis it [facility] 01-30-2023 Note UTP CARDIOLOGY PROGR ESS [...] She did see Dr. 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 Hasn't smoked since 2008. She was unable to tolerate Zetia and pravastatin that Dr. Mcnamara started her on in May 2022. Previous HPI-- Currently she is very concerned about her family h/o CAD/CHF/and valvular disease. States her brother passed 2 years ago s/p OK- but admits that he was 100pounds overweight, [...] Former BSA 1.8 m??? Allergies Allergen Reactions Voipuqm-Jsb-Csr Reductase Inhibitors Unknown Medications: Current Outpatient Medications on File Prior to Visit Medication Sig Dispense Refill aspirin 81 mg EC tablet Take 81 mg by mouth in the morning. buPROPion XL (Wellbutrin XL) 300 mg 24 hr tablet cyanocobalamin (Vitamin B-12) 1,000 mcg/mL injection oxxcfcajdfh-fjjfzgoez-czgrpikm (Trelegy Ellipta) 100-62.5-25 mcg blister with device [...] all medications- hydrochlorothiazide Coronary artery disease of [place] artery of [place] heart with stable angina pectoris (CMS/HCC) Coronary artery disease is stable Continue GDMT- ASA, praluent continue risk factor modifications- heart healthy diet, regular ex (more content not included)... [facility] 01-30-2023 Note Patient here for 3 m o follow up CAD, hypertension, and hyperlipidemia. Denies chest pain, SOB, lightheadedness, and palpitations. Review of Systems Respiratory: Positive for cough. All other systems reviewed and are negative. [facility] 12-07-2021 Hospital Discharge instructions Patient Education 12/07/2021 15:35:55 Kidney Stones, Pgdk-aq-Geiv Kidney Stones Kidney stones are rock-like masses [...] Follow these instructions at home: Medicines Take frlw-sso-ejwrfkc and prescription medicines only as told by [...] 08/13/2008 Document Revised: 07/14/2019 Document Reviewed: 07/14/2019 [employer] Patient Education 2019 [employer]. Follow Up Care 06/19/2021 15:23:52 With:Nahid KELLY, WILLOW Little, BILLY Address: When: Unknown [facility] 06-19-2021 Hospital Discharge instructions Patient Education 06/19/2021 [...] include: ?Spinach. ?Rhubarb. ?Beets. ?Potato chips and swedish fries. ?Nuts. If you regularly take a diuretic medicine, make sure to eat at least 1 2 fruits or vegetables high in potassium each day. These include: ?Avocado. ?Banana. ?[place], prune, carrot, or tomato juice. ?Baked potato. [...] Casseroles. Pizza. Lasagna. Frozen meals. Potato chips. Moroccan fries. Summary You can reduce your risk [...] 06/22/2011 Document Revised: 06/17/2019 Document Reviewed: 02/05/2017 [employer] Patient Education 2020 [employer]. Follow Up Care 05/15/2021 15:10:22 With:Nahid KELLY, WILLOW Little, URO Address: [address] [place] [id number]- When:09/18/2021 Comments:w/24hr urine [facility] Evaluation + Plan note Future Appointments Appointment Date:10/02/2021 03:15:00 PM Scheduled Provider:Rachelle Whitfield MD Location:[facility] Appointment Type:URO Office Visit [facility] Evaluation + Plan note Future Appointments Appointment Date:06/07/2022 03:15:00 PM Scheduled Provider:Rachelle Whitfield MD Location:[facility] Appointment Type:URO Office Visit [facility] Evaluation note Diagnosis Onset Date ASHD (arteriosclerotic heart disease) acute Chronic bronchitis, simple a cute Elevated cholesterol acute GERD (gastroesophageal reflux disease) acute Hypertension acute Screening for colon cancer n oneactive Screening mammogram for breast cancer noneactive Wellness examination noneact [facility] Work Phone: Evaluation note* Diagnosis Onset Date [...] acute Preop exam for internal medicine noneactive [facility] Work Phone: Hospital course Narrative No data available for this section [facility] Progress note No data available for this section [facility] Summary Purpose Family History No Family History [...] Wellness examination Chief Complaint Wellness pre op clearance - [place] Reason for Visit ASHD (arteriosclerot ic heart disease) Chronic bronchitis, simple Elevated cholesterol GERD (gastroesophageal reflux disease) Hypertension Screening for colon cancer Screening mammogram for breast cancer Wellness examination ASHD (arteriosclerotic heart disease) Chronic bronchitis, simple Elevated cholesterol Hypertension Preop exam for internal medicine Additional Source Comments INFORMATION SOURCE (unrecogn ized section and content) DATE CREATED AUTHOR 08/30/2017 [facility] DATE CREATED AUTHOR AUTHOR'S ORGANIZ ATION 07/07/2022 [facility] DATE CREATED AUTHOR AUTHOR'S ORGANIZ ATION 09/26/2022 [facility] DATE CREATED AUTHOR AUTHOR'S ORGANIZ ATION 08/29/2023 [facility] DATE CREATED AUTHOR AUTHOR'S ORGANIZ ATION 10/16/2023 [facility] EPIC DATE CREATED AUTHOR AUTHOR'S ORGANIZ ATION 11/22/2023 [facility] Care Team (unrecognized sect ion and content) [...] BE BASED ON THE PRIMARY CLINICAL RECORDS. [facility] [employer] [facility]. provides no warranty or guarantee of the accuracy or completeness of information in this document.
[2023-12-20 11:06] LABS: Thyroid Stimulating Hormone 0.464 uIU/mL (0.358-3.740)
== END 2023-12-20 10:20 | disposition home or self-care (01) ==
LOC: LAB 10:20
PROVIDERS: PCP Internal Medicine; Visit Provider Internal Medicine
DX: R53.83 Other fatigue (principal)
CPT/HCPCS: 36415; 84443

== ENCOUNTER 2023-12-25 06:47 | Outpatient (OUT) | payer OTHER, SELFPAY ==
--- OUTSIDE RECORDS SUMMARY | 2023-12-25 06:51 | XMS_ITS | CCD ---
Author Organization [facility] CliniSymd Care Team Providers Care Surveyor Helper Rod Name Role Phone Unavailable, Family Physician Unavailable Un available Unavailable, Family Physician Unavailable Un available Torres, Candice J Unavailable Unavailable Torres, Candice J Unavailable Unavailable RODRIGO, SON Primary Care Physician [phone] LUE .RACHELLE Consulting Unavailable LUE ., RACHELLE Reyes Attending Unavailable LUE ., RACHELLE Reyes Admitting Unavailable BALL, DR FONG Primary Care Unavailable MOUKARBBRANDT BURK Consulting Unavailable MOUKARBBHARGAVI, RBANDT Attending Unavailable MOUKABRANDT GÓMEZ Admitting Unavailable RODRIGO, DR FONG Primary Care Unavailable MIRELA, DR HAIR Hale Consulting Unavailable MOUKARBELBRANDT Attending Unavailable MOUKARBEL, BRANDT Admitting Unavailable BALL, DR FONG Primary Care Unavailable MOUKARBBRANDT BURK Consulting Unavailable MIRELA, DR HAIR Hale Consulting Unavailable SAMSA .MARLENE Attending Unavailable SAMSA .MARLENE Admitting Unavailable BALL, DR FONG Primary Care Unavailable SAMSA .MARLENE Consulting Unavailable MOUKARBBRANDT BURK Admitting Unavailable MOUKARBELBRANDT Attending Unavailable BALL, DR FONG Primary Care Unavailable LUE .RACHELLE Consulting Unavailable LUE .RACHELLE Attending Unavailable LUE ., RACHELLE Reyes Admitting Unavailable RODRIGO, DR FONG Primary Care Unavailable RODRIGO, DR FONG Primary Care Unavailable RODRIGO, DR FONG Consulting Unavailable RODRIGO, DR FONG Attending Unavailable BALL, DR FONG Admitting Unavailable BALL, DR FONG Primary Care Unavailable BALL, DR FONG Consulting Unavailable BALL, DR FONG Attending Unavailable BALL, DR FONG Admitting Unavailable CHERRI HAMILTON Consulting Unavailable LUE .RACHELLE Attending Unavailable LUE ., RACHELLE Reyes Admitting Unavailable BALL, DR FONG Primary Care Unavailable ZIEBER, DR LIZET Powell Consulting Unavailable LUE .RACHELLE Consulting Unavailable KATIE ., DR HUNTER Attending Unavailable KATIE ., DR HUNTER Admitting Unavailable MIRELA, DR HAIR Hale Consulting Unavailable KATIE ., DR HUNTER Consulting Unavailable MOUKARBEL, BRANDT Attending Unavailable MOUKABRANDT GÓMEZ Admitting Unavailable RODRIGO, [...] Pratt Referring Unavailable BACILIO ESQUEDA Attending Unavailable SON IRIZARRY Primary Care Unavailable GIBBS, ABI Barbour Attending [...] Unavail able APLING, RUFINO Corrales Referring Unavailable WILIAM, KELLIE Attending Unavailable MOUKARBBHARGAVI, BRANDT Attending Unavailable Allergies Allergy Classification Reported Allergen(s) Allergy Type Date of Onset Reaction(s) Facility (3 sources) Hmg-Coa Reductase Inhibitors (Statins); Translations: [statins] Drug allergy Unknown (qualifier value) [facility] (4 sources) black walnut pollen extract; Translations: [[id number] REDUCTASE INHIBITORS] Drug Allergy 4 [facility] Repository Medications Current Medications Medication Drug Class(es) Dates Sig (Normalized) Sig (Original) [id number] 200 actuat albuterol 0.09 mg/actuat metered dose inhaler (3 sources) beta2-Adrenergic Agonist Start: 06-04-2023 take 1 [...] Alirocumab (Praluent Pen) 150 mg/mL pen injector (3 sources) Start: 06-04-2023 inject 150 mg by subcutaneous injection every other week Alirocumab (Praluent Pen) 150 mg/mL pen injector Active 150 MG SUBCUT EVERY 2 WEEKS June 04, 2023 12:00am Aspirin (2 sources) Platelet Aggregation Inhibitor, Nonsteroidal Anti-inflammatory Drug Start: 03-18-2019 aspirin 81 mg, Refills(s) 0 Start Date: 03/18/19 Status: Ordered bempedoic acid 180 mg oral tablet (2 sources) Start: 08-15-2023 take 1 tablet by mouth once daily Bempedoic Acid (Nexletol) 180 mg tablet Active 180 MG PO Daily August 15, 2023 12:00am 24 hr buPROPion hydrochloride 300 mg extended release oral tablet (13 sources) Aminoketone Start: 05-23-2023 End: 08-07-2023 take [...] esomeprazole 40 mg delayed release oral capsule (3 sources) Proton Pump Inhibitor Start: 06-04-2023 take 40 mg by mouth twice daily Esomeprazole Magnesium Active 40 MG PO Twice daily June 04, 2023 12:00am Bgwuehsogip-Hicjfrrrg-Pi lanter (3 sources) Anticholinergi c, Corticosteroid , beta2-Adrenerg ic Agonist Start: 06-04-2023 Ryszreylaij-Xuhphsbkw-V ilanter (Trelegy Ellipta) 100-62.5-25 mcg blister with device Active 1 INH INHALATION Daily June 04, 2023 12:00am hydroCHLOROthiazide 25 mg oral tablet (6 sources) Thiazide Diuretic Start: 08-19-2023 take 1 tablet by mouth once daily Hydrochlorothiazide Active 0 .ROUTE .COMPLEX 90 August 19, 2023 6:39am TAKE 1 TABLET BY MOUTH ONCE DAILY Start: 06-04-2023 End: 08-19-2023 take 25 mg by mouth once daily Hydrochlorothiazide Discontinued 25 MG PO Daily June 04, 2023 12:00am August 19, 2023 6:39am Start: 12-12-2020 take 1 tablet by zeina th twice daily hydrochlorothiazide 25 mg Tab 25 mg = 1 tab(s), Oral, BID, # 180 tab(s), Refills(s) 3, Pharmacy: [facility], 162, cm, 03/16/20 8:23:00 EST, Height/Length Dosing, 68.7, kg, 03/16/20 8:23:00 EST, Weight Dosing Start Date: 12/12/20 Status: Ordered lubiprostone (3 sources) Chloride Channel Activator Start: 06-04-2023 take 8 ug by mouth twice daily Lubiprostone Active 8 MCG PO Twice daily June 04, 2023 12:00am 24 hr metoprolol succinate 25 mg extended release oral tablet (2 sources) beta-Adrenergic Reanna Start: 08-15-2023 take 25 mg by mouth once daily Metoprolol Succinate Active 25 MG PO Daily August 15, 2023 12:00am Multivitamin (Daily Multi-Vitamin) tablet (3 sources) Start: 06-04-2023 take 1 tablet by mouth once daily Multivitamin (Daily Multi-Vitamin) tablet Active 1 TAB PO Daily June 04, 2023 12:00am neocell super collagen 5000mcg (2 sources) Start: 01-20-2020 neocell super collagen 5000mcg neocell super collagen 5000mcg Start Date: 01/20/20 Status: Ordered potassium citrate 10 meq extended release oral tablet (7 sources) Start: 07-08-2023 take 2 tablets by [...] Status: Ordered sucralfate 1000 mg oral tablet (3 sources) Aluminum Complex Start: 06-04-2023 take 1 tablet by mouth four times daily Sucralfate (Carafate) 1 gram tablet Active 1 GM PO Four times daily June 04, 2023 12:00am Vitamin B-12 1000 mcg/mL injectable solution (1 source) Start: 03-18-2019 Vitamin B-12 1000 mcg/mL injectable solution IntraMuscular, qMonth, Refills(s) 0 Start Date: 03/18/19 Status: Ordered vitamin b12 1 mg/ml injectable solution (4 sources) Vitamin B12 Start: 06-04-2023 inject 1000 [...] Status: Ordered cephalexin 500 mg oral capsule (3 sources) Cephalosporin Antibacterial Start: 02-05-2017 End: 06-04-2023 take 1 g by mouth twice daily Cephalexin (Keflex) 500 mg capsule Discontinued 1 GM PO Twice daily 05 10February 05, 2017 1:00am June 04, 2023 9:38am clopidogrel 75 mg oral tablet (3 sources) P2Y12 Platelet Inhibitor Start: 06-04-2023 End: [...] space of neuraxis 04-22-2019 Chronic Anxiety disorders (3 sources) Generalized anxiety disorder; Translations: [Generalized anxiety disorder] 06-04-2023 Chronic Calculus of urinary tract (8 sources) Kidney stone; Translations: [Calculus of kidney] Onset: 06-19-2021 Episodic Cancer of uterus (2 sources) History of malignant neoplasm of uterine body 04-22-2019 Episodic Chronic obstructive pulmonary disease and bronchiectasis (11 sources) Acute exacerbation of chronic obstructive airways disease; Translations: [Chronic obstructive pulmonary disease with (acute) exacerbation] Onset: 08-01-2023 06-04-2023 Chronic Coronary atherosclerosis and other heart disease (16 sources) Atherosclerotic heart disease of [place] coronary artery without angina pectoris; Translations: [Coronary arteriosclerosis] Onset: 06-27-2022 06-04-2023 Chronic Disorders of lipid metabolism (16 sources) Hypercholesterolemia; Translations: [Hyperlipidemia] Onset: 05-21-2022 03-05-2019 Chronic Esophageal disorders (5 sources) Gastroesophageal reflux disease; Translations: [Gastro-esophageal reflux disease without esophagitis] 06-03-2023 Chronic Essential hypertension (11 sources) Hypertensive disorder; Translations: [Essential (primary) hypertension] Onset: 05-21-2022 04-22-2019 Chronic Genitourinary symptoms and ill-defined conditions (8 sources) Delay when starting to pass urine; Translations: [Increased frequency of urination] 03-05-2019 Episodic Malaise and fatigue (2 sources) Fatigue; Translations: [Other fatigue] 12-20-2023 Episodic Menopausal disorders (3 sources) Atrophic vaginitis; Translations: [Postmenopausal atrophic vaginitis] 06-04-2023 Chronic Miscellaneous mental health disorders (2 sources) Primary insomnia; Translations: [Primary insomnia] 12-17-2023 Chronic Osteoporosis (3 sources) Senile osteoporosis; Translations: [Age-related osteoporosis without current pathological fracture] Onset: 04-29-2018 06-04-2023 Chronic Other diseases of kidney and ureters (2 sources) Diverticulum of renal calyx 01-20-2020 Chronic Other lower respiratory disease (4 sources) Shortness of breath; Translations: [SHORTNESS OF BREATH] Onset: 06-21-2022 Episodic Other lower respiratory disease (2 sources) Nodule of lung; Translations: [Solitary pulmonary nodule] [...] OF NICOTINE DEPEND] Onset: 06-30-2022 Episodic Syncope (3 sources) Syncope; Translations: [Syncope and collapse] 02-20-2023 Episodic Unclassified (2 sources) Drug therapy finding 09-23-2019 Unclassified (3 sources) ACUTE COUGH; Translations: [ACUTE COUGH] Onset: 04-19-2022 Unclassified (1 source) left shoulder rotator cuff tear Onset: 08-28-2023 Urinary tract infections (2 sources) Chronic cystitis 03-16-2020 Chronic Urinary tract infections (5 sources) Urinary tract infectious disease; Translations: [Urinary [...] her an apt for Jan 2024. Normal [facility] Cholesterol in LDL Calc [Mas s/Vol]on 11-19-2023 Cholesterol in LDL [Mass/Vol] 75.6 mg/dL [facility] Comment on above: <100 mg/dl [id number] 0-129 mg/dl NEAR OR ABOVE [id number] mg/dl BORDERLINE [id number] mg/dl HIGH>190 mg/dl VERY HIGH Cholesterol in VLDL Calc [Ma ss/Vol]on 11-19-2023 Cholesterol in VLDL [Mass/Vol] 12.4 mg/dL [facility] Globulin Calc (S) [Mass/Vol] on 11-19-2023 Globulin (S) [Mass/Vol] 3.1 g/dL [facility] Laboratory - Chemistry and C hemistry - challengeon 11-19-2023 Albumin [Mass/Vol] 3.4 g/dL 3.4-5.0 [facility] ALP [Catalytic activity/Vol] 52 U/L 46-116 [facility] ALT [Catalytic activity/Vol] 32 U/L 14-59 [facility] AST [Catalytic activity/Vol] 21 U/L 15-37 [facility] Bilirubin [Mass/Vol] 0.6 mg/dL 0.2-1.0 [facility] Bilirubin.direct [Mass/Vol] 0.1 mg/dL 0.0-0.2 [facility] Cholesterol [Mass/Vol] 144 mg/dL <=200 [facility] Cholesterol in HDL [Mass/Vol] 56 mg/dL 40-60 [facility] Comment on above: > or =60 mg/dl - LOW CARDIOVASCULAR RISK<40 mg/dl - HIGH CARDIOVASCULAR RISK Protein [Mass/Vol] 6.5 g/dL 6.4-8.2 [facility] Triglyceride [Mass/Vol] 62 mg/dL <=150 [facility] Serum or plasma albumin/glob ulin mass ratioon 11-19-2023 Albumin/Globulin [Mass ratio] 1.1 {ratio} [facility] Serum or plasma total choles terol/high density lipoprotein (HDL) cholesterol mass robyn 11-19-2023 Cholesterol.total/Ch olesterol in HDL [Mass ratio] 2.6 {ratio} [facility] Comment on above: 3.3 - 4.4 LOW RISK4. 4 - 7.1 AVERAGE RISK7.1 - 11.0 MODERATE RISK>11.0 HIGH RISK Office Visiton 08-07-2023 Follow-up visit [id number] SnowEmeliafreddy Galvan 1960 F Date Provider Department Center 08/07/2023 [facility] Family History Problem Relation Age of Onset Other Mother Coronary artery disease Sister Peripheral vascular disease Sister Coronary artery disease Brother Heart failure Brother Atrial fibrillation Brother Family Status - Relation Status Age at Mother Sister Brother Level of Service:18540 [place] OFFICE/OUTPATIENT ESTABLISHED MOD MDM 30 MIN Normal [facility] MR SHOULDER LEFT WO IV CONTR [...] [#/Vol] 0.1 10 3/uL 0.0-0.1 [facility] Basophils/100 WBC Auto (Bld) on 05-31-2023 Basophils/100 WBC (Bld) 2.1 % 0.2-2.0 [facility] Cholesterol in LDL Calc [Mas s/Vol]on 05-31-2023 Cholesterol in LDL [Mass/Vol] 204.0 mg/dL [facility] Comment on above: <100 mg/dl [id number] 0-129 mg/dl NEAR OR ABOVE [id number] mg/dl BORDERLINE [id number] mg/dl HIGH>190 mg/dl VERY HIGH Cholesterol in VLDL Calc [Ma ss/Vol]on 05-31-2023 Cholesterol in VLDL [Mass/Vol] 13.2 mg/dL [facility] Eosinophils/100 WBC Auto (Bl d)on 05-31-2023 Eosinophils/100 WBC (Bld) 5.2 % 0.9-7.0 [facility] Erythrocyte distribution wid th Auto (RBC) [Ratio]on 05-31-2023 Erythrocyte distribution width (RBC) [Ratio] 12.9 % 11.0-15.0 [facility] Estimated glomerular filtrat ion rate (GFR) non- Americanon 05-31-2023 GFR/1.73 sq M.predicted among non-blacks MDRD (S/P/Bld) [Vol rate/Area] mL/min/{1.73_m2} >=60 [facility] Globulin Calc (S) [Mass/Vol] on 05-31-2023 Globulin (S) [Mass/Vol] 3.6 g/dL [facility] Hematocrit Auto (Bld) [Volum e fraction]on 05-31-2023 Hematocrit (Bld) [Volume fraction] 44.0 % 36.0-48.0 [facility] Hemoglobin [Mass/volume] in Bloodon 05-31-2023 Hemoglobin (Bld) [Mass/Vol] 14.4 g/dL 12.0-16.0 [facility] Laboratory - Chemistry and C hemistry - challengeon 05-31-2023 Albumin [Mass/Vol] 3.4 g/dL 3.4-5.0 [facility] ALP [Catalytic activity/Vol] 78 U/L 46-116 [facility] ALT [Catalytic activity/Vol] 51 U/L 14-59 [facility] AST [Catalytic activity/Vol] 28 U/L 15-37 [facility] Bilirubin [Mass/Vol] 0.5 mg/dL 0.2-1.0 [facility] Calcium [Mass/Vol] 9.1 mg/dL 8.5-10.1 [facility] Chloride [Moles/Vol] 102 mmol/L 98-107 [facility] Cholesterol [Mass/Vol] 277 mg/dL <=200 [facility] Cholesterol in HDL [Mass/Vol] 60 mg/dL 40-60 [facility] Comment on above: > or =60 mg/dl - LOW CARDIOVASCULAR RISK<40 mg/dl - HIGH CARDIOVASCULAR RISK CO2 [Moles/Vol] 29.1 mmol/L 21.0-32.0 [facility] Creatinine [Mass/Vol] 0.76 mg/dL 0.55-1.02 [facility] GFR/1.73 sq M.predicted MDRD (S/P/Bld) [Vol rate/Area] mL/min/{1.73_m2} >=60 [facility] Glucose [Mass/Vol] 102 mg/dL 74-106 [facility] Potassium [Moles/Vol] 3.8 mmol/L 3.5-5.1 [facility] Protein [Mass/Vol] 7.0 g/dL 6.4-8.2 [facility] Sodium [Moles/Vol] 141 mmol/L 136-145 [facility] Triglyceride [Mass/Vol] 66 mg/dL <=150 [facility] Urea nitrogen [Mass/Vol] 21.0 mg/dL 7.0-18.0 [facility] Urea nitrogen/Creatinine [Mass ratio] 27.6 mg/mg [facility] Laboratory - Hematology and Cell countson 05-31-2023 Immature granulocytes/100 WBC (Bld) 0.2 % 0.0-0.5 [facility] Leukocytes [#/volume] correc johanna for nucleated erythrocytes in Blood by Automated counon 05-31-2023 WBC corrected for nucl RBC Auto (Bld) [#/Vol] 5.6 10 3/uL 4.0-11.0 [facility] Lymphocytes Auto (Bld) [#/Vo l]on 05-31-2023 Lymphocytes (Bld) [#/Vol] 1.7 10 3/uL 1.2-3.8 [facility] Lymphocytes/100 WBC Auto (Bl d)on 05-31-2023 Lymphocytes/100 WBC (Bld) 31.0 % 20.5-60.0 [facility] MCH Auto (RBC) [Entitic mass ]on 05-31-2023 MCH (RBC) [Entitic mass] 28.8 pg 26.7-34.0 [facility] MCHC Auto (RBC) [Mass/Vol]on 05-31-2023 MCHC (RBC) [Mass/Vol] 32.7 g/dL 29.9-35.2 [facility] MCV Auto (RBC) [Entitic vol] on 05-31-2023 MCV (RBC) [Entitic vol] 88.0 fL 81.0-99.0 [facility] Monocytes Auto (Bld) [#/Vol] on 05-31-2023 Monocytes (Bld) [#/Vol] 0.8 10 3/uL 0.3-0.8 [facility] Monocytes/100 WBC Auto (Bld) on 05-31-2023 Monocytes/100 WBC (Bld) 13.4 % 1.7-12.0 [facility] Neutrophils Auto (Bld) [#/Vo l]on 05-31-2023 Neutrophils (Bld) [#/Vol] 2.7 10 3/uL 1.4-6.5 [facility] Neutrophils/100 WBC Auto (Bl d)on 05-31-2023 Neutrophils/100 WBC (Bld) 48.1 % 43.0-75.0 [facility] No Panel Informationon 05-30 Eosinophils # (Auto) 0.3 10 3/uL 0.0-0.7 [facility] Immature Granulocyte # (Auto) 0.01 10 3/uL 0.00-0.03 [facility] Platelet mean volume Auto (B ld) [Entitic vol]on 05-31-2023 Platelet mean volume (Bld) [Entitic vol] 10.7 fL 9.5-13.5 [facility] Platelets Auto (Bld) [#/Vol] on 05-31-2023 Platelets (Bld) [#/Vol] 305 10 3/uL 150-450 [facility] RBC Auto (Bld) [#/Vol]on RBC (Bld) [#/Vol] 5.00 10 6/uL 4.20-5.40 [facility] Serum or plasma albumin/glob ulin mass ratioon 05-31-2023 Albumin/Globulin [Mass ratio] 0.9 {ratio} [facility] Serum or plasma anion gap de terminationon 05-31-2023 Anion gap [Moles/Vol] 13.7 mmol/L [facility] Serum or plasma total choles terol/high density lipoprotein (HDL) cholesterol mass robyn 05-31-2023 Cholesterol.total/Ch olesterol in HDL [Mass ratio] 4.6 {ratio} [facility] Comment on above: 3.3 - 4.4 LOW RISK4. 4 - 7.1 AVERAGE RISK7.1 - 11.0 MODERATE RISK>11.0 HIGH RISK Office Visiton 01-30-2023 Follow-up visit [id number] Kell Snow 1960 F Date Provider Department Center 01/30/2023 KELLIE RIVERA Family History Problem Relation Age of Onset Other Mother Coronary artery disease Sister Peripheral vascular disease Sister Coronary artery disease Brother Heart failure Brother Atrial fibrillation Brother Family Status - Relation Status Age at Mother Sister Brother Level of Service:28972 [place] OFFICE/OUTPATIENT ESTABLISHED LOW MDM 20-29 MIN Normal [facility] Reminderson 09-25-2022 Reminders - From: Yolanda Mauro To: HELIO - Vel Whitfield; Sent: 12/07/2021 15:46:40 EDT Show up: 04/08/2022 14:46:00 EST Subject: JAYDA prior to 6 mos Due Date/Time: 05/08/2022 14:46:00 EST Reminder Message Patient needs JAYDA prior to 6 month appointment. wants JAYDA done at [facility]. orders faxed to [facility] patients appt was rescheduled to 08/20/22. pt aware to have testing done prior. Patient cancelled elinor August appointment and has not rescheduled. diagnosis is [...] by: HAIR DIETZ Date: 2022-06-30 14:46 Normal [facility] STRESS/REST MULTIon 06-21 NM STRESS/REST MULTI Patient: SUMMER SNOW Exam Date: 06/21/2022 : 1960 Gender:F Ordering : DR BRANDT MCNAMARA M.D. Admission #: [id number] Family : DR SON IRIZARRY D.O. Order #: [id number] CLICK HERE TO VIEW EXAM RADIOLOGY REPORT [...] Dietz MD on 06/25/2022 at 09:33 Normal [facility] Lab Reportson 06-01-2022 Lab Reports [id number]:127 Normal [facility] ECHOCARDIO M/2D COMPLETEon 0 05-31-2022 ECHOCARDIO M/2D COMPLETE Patient: PAM SNOW Exam Date: 05/31/2022 : 1960 Gender:F Ordering : DR BRANDT MCNAMARA M.D. Admission #: [id number] Family : Order #: [id number] CLICK HERE TO VIEW EXAM ECHOCARDIOGRAM REPORT [...] Brandt Mcnamara M.D. on 05/31/2022 at 22:12 [facility] Provider Letter [facility] [facility]05-29 Provider Letter [facility] May 29, 2022 PAM SNOW [address] [place] [address] PAM SNOW S 1960 Dear Pam Snow , We have been trying to reach you with no success. It is important that you return our call upon receiving this letter. Also, at the time of your call, please provide us with your current information. Thank you for your prompt attention to this matter. Sincerely, [facility] [address] [facility] [place] [address] [facility] Provider Letter [facility] [facility] May 29, 2022 PAM SNOW [address] [place] [address] EMELIA SNOWNDA S 1960 Dear Pam Snow , We have been trying to reach you with no success. It is important that you return our call regarding your _ upon receiving this letter. Also, at the time of your call, please provide us with your current information. Thank you for your prompt attention to this matter. Sincerely, [facility] [address] [facility] [place] [address] [facility] Lab Reportson 05-22-2022 Lab Reports [id number]:12 7 Normal [facility] Lab Reports [id number]:12 7 Normal [facility] PROF CHEM 8 (BAS METB)on Anion gap [Moles/Vol] 11.0 mmol/L Normal [facility] Comment on above: Performed By: #### C KATYA, NA, CA, URIC, BUN, K, CO2, CL #### [facility] [address] [place] [address] Dr. Cesar Francis Calcium [Mass/Vol] 9.4 mg/dL Normal 8.5-10.1 [facility] Comment on above: Performed By: #### C KATYA, NA, CA, URIC, BUN, K, CO2, CL #### [facility] [address] [place] [address] Dr. Cesar Francis Chloride [Moles/Vol] 101 mmol/L Normal 98-107 [facility] Comment on above: Performed By: #### C KATYA, NA, CA, URIC, BUN, K, CO2, CL #### [facility] [address] [place] [address] Dr. Cesar Francis CO2 [Moles/Vol] 28.3 mmol/L Normal 21.0-32.0 [facility] Comment on above: Performed By: #### C KATYA, NA, CA, URIC, BUN, K, CO2, CL #### [facility] [address] [place] [address] Dr. Cesar Francis Creatinine [Mass/Vol] 0.72 mg/dL Normal 0.55-1.02 [facility] Comment on above: Performed By: #### C KATYA, NA, CA, URIC, BUN, K, CO2, CL #### [facility] [address] [place] [address] Dr. Cesar Francis EGFR-AF BELGIAN >60 Normal >=60 [facility] Comment on above: Performed By: #### C KATYA, NA, CA, URIC, BUN, K, CO2, CL #### [facility] [address] [address] [address] Cesar Francis EGFR-NON AF BELGIAN >60 Normal >=60 [facility] Comment on above: Performed By: #### C KATYA, NA, CA, URIC, BUN, K, CO2, CL #### [facility] [address] [address] [address] Cesar Francis Glucose [Mass/Vol] 92 mg/dL Normal 74-106 [facility] Comment on above: Performed By: #### C KATYA, NA, CA, URIC, BUN, K, CO2, CL #### [facility] [address] [place] [address] Dr. Cesar Francis Potassium [Moles/Vol] 3.3 mmol/L Critically low 3.5-5.1 [facility] Comment on above: Performed By: #### C KATYA, NA, CA, URIC, BUN, K, CO2, CL #### [facility] [address] [place] [address] Dr. Cesar Francis Sodium [Moles/Vol] 137 mmol/L Normal 136-145 [facility] Comment on above: Performed By: #### C KATYA, NA, CA, URIC, BUN, K, CO2, CL #### [facility] [address] [place] [address] Dr. Cesar Francis Urea nitrogen [Mass/Vol] 14.0 mg/dL Normal 7.0-18.0 [facility] Comment on above: Performed By: #### C KATYA, NA, CA, URIC, BUN, K, CO2, CL #### [facility] [address] [place] [address] Dr. Cesar Francis Urea nitrogen/Creatinine [Mass ratio] 19.4 mg/mg Normal [facility] Comment on above: Performed By: #### C KATYA, NA, CA, URIC, BUN, K, CO2, CL #### [facility] [address] [place] [address] Dr. Cesar Rosas 05-22-2022 Reminders - From: Amisha Scott To: HELIO - Recallmonet Whitfield; Sent: 12/07/2021 15:54:24 EDT Show up: 04/20/2022 15:53:00 EST Subject: JAYDA needed May 2022 Due Date/Time: 06/07/2022 15:53:00 EDT Reminder/Recall This pt needs Renal US prior to 06/07/[address] Whitfield in [place] - pt uses [facility]-pls verify this with pt called patient to verify if she would like orders sent to [facility], left msg on voicemail for her to call office. Patient called back I will send order over to [facility]. Normal [facility] PTH INTACTon 05-19-2022 PTH, Intact 22 pg/mL Normal 15-65 [facility] Comment on above: Performed By: #### C KATYA, NA, CA, URIC, BUN, K, CO2, CL #### [facility] [address] [place] [address] Dr. Cesar Francis BUN 05-18-2022 Urea nitrogen [Mass/Vol] 16.0 mg/dL Normal 7.0-18.0 [facility] Comment on above: Performed By: #### C KATYA, NA, CA, URIC, BUN, K, CO2, CL #### [facility] [address] [place] [address] Dr. Cesar Francis CALCIUMon 05-18-2022 Calcium [Mass/Vol] 9.2 mg/dL Normal 8.5-10.1 [facility] Comment on above: Performed By: #### C KATYA, NA, CA, URIC, BUN, K, CO2, CL #### [facility] [address] [place] [address] Dr. Cesar Francis CHLORIDEon 05-18-2022 Chloride [Moles/Vol] 104 mmol/L Normal 98-107 [facility] Comment on above: Performed By: #### C KATYA, NA, CA, URIC, BUN, K, CO2, CL #### [facility] [address] [place] [address] Dr. Cesar Francis CO2on 05-18-2022 CO2 [Moles/Vol] 28.4 mmol/L Normal 21.0-32.0 [facility] Comment on above: Performed By: #### C KATYA, NA, CA, URIC, BUN, K, CO2, CL #### [facility] [address] [address] [address] Cesar Francis CREATININEon 05-18-2022 Creatinine [Mass/Vol] 0.63 mg/dL Normal 0.55-1.02 [facility] Comment on above: Performed By: #### C KATYA, NA, CA, URIC, BUN, K, CO2, CL #### [facility] [address] [address] [address] Cesar Francis EGFR-AF BELGIAN >60 Normal >=60 [facility] Comment on above: Performed By: #### C KATYA, NA, CA, URIC, BUN, K, CO2, CL #### [facility] [address] [address] [address] Cesar Francis EGFR-NON AF BELGIAN >60 Normal >=60 [facility] Comment on above: Performed By: #### C KATYA, NA, CA, URIC, BUN, K, CO2, CL #### [facility] [address] [address] [address] Cesar Francis MG MAMM SCREEN 3D ISAIAH CADon 05-18-2022 MG MAMM SCREEN 3D ISAIAH CAD Patient: PAM SNOW Exam Date: 05/18/2022 : 1960 Gender:F Ordering : DR DALE WILSON . Admission #: [id number] Family : RACHELLE WHITFIELD . Order #: [id number] CLICK HERE TO VIEW EXAM RADIOLOGY REPORT [...] lung cancer at age 54. LOCATION: [facility] BREAST COMPOSITION: Almost entirely fatty. FINDINGS: [...] Dietz MD on 05/18/2022 at 09:16 Normal [facility] NAon 05-18-2022 Sodium [Moles/Vol] 140 mmol/L Normal 136-145 [facility] Comment on above: Performed By: #### C KATYA, NA, CA, URIC, BUN, K, CO2, CL #### [facility] [address] [place] [address] Dr. Cesar Francis POTASSIUMon 05-18-2022 Potassium [Moles/Vol] 2.7 mmol/L Critically low 3.5-5.1 [facility] Comment on above: Performed By: #### C KATYA, NA, CA, URIC, BUN, K, CO2, CL #### [facility] [address] [address] [address] Cesar Francis URIC ACID SERUMon 05-18-2022 Urate [Mass/Vol] 6.0 mg/dL Normal 2.6-6.0 [facility] Comment on above: Performed By: #### C KATYA, NA, CA, URIC, BUN, K, CO2, CL #### [facility] [address] [place] [address] Dr. Cesar Francis US KIDNEYSon 05-18-2022 US KIDNEYS EXAMINATION: US KIDFreddy EYS HISTORY: Kidney stone COMPARISON: No relevant comparison [...] by: LIZET MALCOLM Date: 2022-05-18 08:47 Normal [facility] Formson 04-17-2022 Forms [id number]:12 7 Normal [facility] Reminderson [...] CHERRI HAMILTON Date: 2022-04-17 17:56 Normal [facility] CBC AUTO DIFFon 02-09-2022 BASO # 0.1 103/ul Normal 0.0-0.1 [facility] Comment on above: Performed By: #### C KATYA, NA, CA, URIC, BUN, K, CO2, CL #### [facility] [address] [address] [address] Cesar Francis Basophils/100 WBC (Bld) 2.3 % Critically high 0.2-2.0 [facility] Comment on above: Performed By: #### C KATYA, NA, CA, URIC, BUN, K, CO2, CL #### [facility] [address] [place] [address] Dr. Cesar Francis EO # 0.3 103/ul Normal 0.0-0.7 [facility] Comment on above: Performed By: #### C KATYA, NA, CA, URIC, BUN, K, CO2, CL #### [facility] [address] [place] [address] Dr. Cesar Francis Eosinophils/100 WBC (Bld) 4.1 % Normal 0.9-7.0 [facility] Comment on above: Performed By: #### C KATYA, NA, CA, URIC, BUN, K, CO2, CL #### [facility] [address] [place] [address] Dr. Cesar Francsi Erythrocyte distribution width (RBC) [Ratio] 12.8 % Normal 11.0-15.0 [facility] Comment on above: Performed By: #### C KATYA, NA, CA, URIC, BUN, K, CO2, CL #### [facility] [address] [place] [address] Dr. Cesar Francis Hematocrit (Bld) [Volume fraction] 45.4 % Normal 36.0-48.0 [facility] Comment on above: Performed By: #### C KATYA, NA, CA, URIC, BUN, K, CO2, CL #### [facility] [address] [place] [address] Dr. Cesar Francis Hemoglobin (Bld) [Mass/Vol] 15.6 g/dL Normal 12.0-16.0 [facility] Comment on above: Performed By: #### C KATYA, NA, CA, URIC, BUN, K, CO2, CL #### [facility] [address] [place] [address] Dr. Cesar Francis IG # 0.01 10e3/ul Normal 0.00-0.03 [facility] Comment on above: Performed By: #### C KATYA, NA, CA, URIC, BUN, K, CO2, CL #### [facility] [address] [place] [address] Dr. Cesar Francis IG % 0.2 % Normal 0.0-0.5 [facility] Comment on above: Performed By: #### C KATYA, NA, CA, URIC, BUN, K, CO2, CL #### [facility] [address] [place] [address] Dr. Cesar Francis LYMPH # 1.6 103/ul Normal 1.2-3.8 [facility] Comment on above: Performed By: #### C KATYA, NA, CA, URIC, BUN, K, CO2, CL #### [facility] [address] [place] [address] Dr. Cesar Francis Lymphocytes/100 WBC (Bld) 26.2 % Normal 20.5-60.0 [facility] Comment on above: Performed By: #### C KATYA, NA, CA, URIC, BUN, K, CO2, CL #### [facility] [address] [place] [address] Dr. Cesar Francis MANUAL DIFF REQ NO Normal [facility] Comment on above: Performed By: #### C KATYA, NA, CA, URIC, BUN, K, CO2, CL #### [facility] [address] [place] [address] Dr. Cesar Francis MCH (RBC) [Entitic mass] 28.6 pg Normal 26.7-34.0 [facility] Comment on above: Performed By: #### C KATYA, NA, CA, URIC, BUN, K, CO2, CL #### [facility] [address] [place] [address] Dr. Cesar Francis MCHC (RBC) [Mass/Vol] 34.4 g/dL Normal 29.9-35.2 [facility] Comment on above: Performed By: #### C KATYA, NA, CA, URIC, BUN, K, CO2, CL #### [facility] [address] [place] [address] Dr. Cesar Francis MCV (RBC) [Entitic vol] 83.3 fL Normal 81.0-99.0 [facility] Comment on above: Performed By: #### C KATYA, NA, CA, URIC, BUN, K, CO2, CL #### [facility] [address] [place] [address] Dr. Cesar Francis MONO # 0.8 103/ul Normal 0.3-0.8 [facility] Comment on above: Performed By: #### C KATYA, NA, CA, URIC, BUN, K, CO2, CL #### [facility] [address] [place] [address] Dr. Cesar Francis Monocytes/100 WBC (Bld) 12.5 % Critically high 1.7-12.0 [facility] Comment on above: Performed By: #### C KATYA, NA, CA, URIC, BUN, K, CO2, CL #### [facility] [address] [place] [address] Dr. Cesar Francis NEUT # 3.3 103/ul Normal 1.4-6.5 [facility] Comment on above: Performed By: #### C KATYA, NA, CA, URIC, BUN, K, CO2, CL #### [facility] [address] [place] [address] Dr. Cesar Francis Neutrophils/100 WBC (Bld) 54.7 % Normal 43.0-75.0 [facility] Comment on above: Performed By: #### C KATYA, NA, CA, URIC, BUN, K, CO2, CL #### [facility] [address] [place] [address] Dr. Cesar Francis Platelet mean volume (Bld) [Entitic vol] 10.6 fL Normal 9.5-13.5 [facility] Comment on above: Performed By: #### C KATYA, NA, CA, URIC, BUN, K, CO2, CL #### [facility] [address] [place] [address] Dr. Cesar Francis PLT 275 103/ul Normal 150-450 [facility] Comment on above: Performed By: #### C KATYA, NA, CA, URIC, BUN, K, CO2, CL #### [facility] [address] [address] [address] Cesar Francis RBC 5.45 106/ul Critically high 4.20-5.40 [facility] Comment on above: Performed By: #### C KATYA, NA, CA, URIC, BUN, K, CO2, CL #### [facility] [address] [address] [address] Cesar Francis WBC 6.1 103/ul Normal 4.0-11.0 [facility] Comment on above: Performed By: #### C KATYA, NA, CA, URIC, BUN, K, CO2, CL #### [facility] [address] [address] [address] Cesar Francis LIPID PROFILEon 02-09-2022 CHOL-HDL RATIO NORM SEE BELOW Normal [facility] Comment on above: Result Comment: 3.3 - 4.4 LOW RISK 4.4 - 7.1 AVERAGE RISK 7.1 - 11.0 MODERATE RISK >11.0 HIGH RISK Performed By: #### C KATYA, NA, CA, URIC, BUN, K, CO2, CL #### [facility] [address] [place] [address] Dr. Cesar Francis Cholesterol [Mass/Vol] 241 mg/dL Critically high <=200 [facility] Comment on above: Performed By: #### C KATYA, NA, CA, URIC, BUN, K, CO2, CL #### [facility] [address] [address] [address] Cesar Francis Cholesterol in HDL [Mass/Vol] 66 mg/dL Critically high 40-60 [facility] Comment on above: Performed By: #### C KATYA, NA, CA, URIC, BUN, K, CO2, CL #### [facility] [address] [address] [address] Cesar Francis Cholesterol in LDL [Mass/Vol] 156.0 mg/dL Normal [facility] Comment on above: Performed By: #### C KATYA, NA, CA, URIC, BUN, K, CO2, CL #### [facility] [address] [address] [address] Cesar Francis Cholesterol.total/Ch olesterol in HDL [Mass ratio] 3.7 {ratio} Normal [facility] Comment on above: Performed By: #### C KATYA, NA, CA, URIC, BUN, K, CO2, CL #### [facility] [address] [address] [address] Cesar Francis HDL NORMAL > or = 60 mg/dl - LO W CARDIOVASCULAR RISK <40 mg/dl - HIGH CARDIOVASCULAR RISK Normal [facility] Comment on above: Performed By: #### C KATYA, NA, CA, URIC, BUN, K, CO2, CL #### [facility] [address] [address] [address] Cesar Francis LDL CALC NORMAL SEE BELOW Normal [facility] Comment on above: Result Comment: <100 mg/dl OPTIMAL 100 - 129 mg/dl NEAR OR ABOVE OPTIMAL 130 - 159 mg/dl BORDERLINE HIGH 160 - 189 mg/dl HIGH >190 mg/dl VERY HIGH Performed By: #### C KATYA, NA, CA, URIC, BUN, K, CO2, CL #### [facility] [address] [address] [address] Cesar Francis Triglyceride [Mass/Vol] 95 mg/dL Normal <=150 [facility] Comment on above: Performed By: #### C KATYA, NA, CA, URIC, BUN, K, CO2, CL #### [facility] [address] [address] [address] Cesar Francis VLDL CALC 19.0 mg/dL Normal [facility] Comment on above: Performed By: #### C KATYA, NA, CA, URIC, BUN, K, CO2, CL #### [facility] [address] [place] [address] Dr. Cesar Francis PROF 14(COMP METB)on 022 Albumin [Mass/Vol] 3.6 g/dL Normal 3.4-5.0 [facility] Comment on above: Performed By: #### C KATYA, NA, CA, URIC, BUN, K, CO2, CL #### [facility] [address] [place] [address] Dr. Cesar Francis Albumin/Globulin [Mass ratio] 1.0 {ratio} Normal [facility] Comment on above: Performed By: #### C KATYA, NA, CA, URIC, BUN, K, CO2, CL #### [facility] [address] [place] [address] Dr. Cesar Francis ALP [Catalytic activity/Vol] 65 U/L Normal 46-116 [facility] Comment on above: Performed By: #### C KATYA, NA, CA, URIC, BUN, K, CO2, CL #### [facility] [address] [place] [address] Dr. Cesar Francis ALT [Catalytic activity/Vol] 31 U/L Normal 14-59 [facility] Comment on above: Performed By: #### C KATYA, NA, CA, URIC, BUN, K, CO2, CL #### [facility] [address] [place] [address] Dr. Cesar Francis Anion gap [Moles/Vol] 13.2 mmol/L Normal [facility] Comment on above: Performed By: #### C KATYA, NA, CA, URIC, BUN, K, CO2, CL #### [facility] [address] [place] [address] Dr. Cesar Francis AST [Catalytic activity/Vol] 21 U/L Normal 15-37 [facility] Comment on above: Performed By: #### C KATYA, NA, CA, URIC, BUN, K, CO2, CL #### [facility] [address] [place] [address] Dr. Cesar Francis Bilirubin [Mass/Vol] 0.5 mg/dL Normal 0.2-1.0 [facility] Comment on above: Performed By: #### C KATYA, NA, CA, URIC, BUN, K, CO2, CL #### [facility] [address] [place] [address] Dr. Cesar Francis Calcium [Mass/Vol] 9.0 mg/dL Normal 8.5-10.1 [facility] Comment on above: Performed By: #### C KATYA, NA, CA, URIC, BUN, K, CO2, CL #### [facility] [address] [address] [address] Cesar Francis Chloride [Moles/Vol] 101 mmol/L Normal 98-107 [facility] Comment on above: Performed By: #### C KATYA, NA, CA, URIC, BUN, K, CO2, CL #### [facility] [address] [address] [address] Cesar Francis CO2 [Moles/Vol] 29.5 mmol/L Normal 21.0-32.0 [facility] Comment on above: Performed By: #### C KATYA, NA, CA, URIC, BUN, K, CO2, CL #### [facility] [address] [address] [address] Cesar Francis Creatinine [Mass/Vol] 0.71 mg/dL Normal 0.55-1.02 [facility] Comment on above: Performed By: #### C KATYA, NA, CA, URIC, BUN, K, CO2, CL #### [facility] [address] [place] [address] Dr. Cesar Francis EGFR-AF BELGIAN >60 Normal >=60 [facility] Comment on above: Performed By: #### C KATYA, NA, CA, URIC, BUN, K, CO2, CL #### [facility] [address] [place] [address] Dr. Cesar Francis EGFR-NON AF BELGIAN >60 Normal >=60 [facility] Comment on above: Performed By: #### C KATYA, NA, CA, URIC, BUN, K, CO2, CL #### [facility] [address] [place] [address] Dr. Cesar Francis Globulin (S) [Mass/Vol] 3.5 g/dL Normal [facility] Comment on above: Performed By: #### C KATYA, NA, CA, URIC, BUN, K, CO2, CL #### [facility] [address] [place] [address] Dr. Cesar Francis Glucose [Mass/Vol] 102 mg/dL Normal 74-106 [facility] Comment on above: Performed By: #### C KATYA, NA, CA, URIC, BUN, K, CO2, CL #### [facility] [address] [address] [address] Cesar Francis Potassium [Moles/Vol] 3.7 mmol/L Normal 3.5-5.1 [facility] Comment on above: Performed By: #### C KATYA, NA, CA, URIC, BUN, K, CO2, CL #### [facility] [address] [address] [address] Cesar Francis Protein [Mass/Vol] 7.1 g/dL Normal 6.4-8.2 [facility] Comment on above: Performed By: #### C KATYA, NA, CA, URIC, BUN, K, CO2, CL #### [facility] [address] [address] [address] Cesar Francis Sodium [Moles/Vol] 140 mmol/L Normal 136-145 [facility] Comment on above: Performed By: #### C KATYA, NA, CA, URIC, BUN, K, CO2, CL #### [facility] [address] [address] [address] Cesar Francis Urea nitrogen [Mass/Vol] 28.0 mg/dL Critically high 7.0-18.0 [facility] Comment on above: Performed By: #### C KATYA, NA, CA, URIC, BUN, K, CO2, CL #### [facility] [address] [address] [address] Cesar Francis Urea nitrogen/Creatinine [Mass ratio] 39.4 mg/mg Normal [facility] Comment on above: Performed By: #### C KATYA, NA, CA, URIC, BUN, K, CO2, CL #### [facility] [address] [address] [address] Cesar Francis Screenson 12-08-2021 Screens [id number]:12 7 Normal [facility] Ambulatory Visit Summaryon 0 12-07-2021 Ambulatory Visit Summary PAM SNOW :1960 Visit Date:12/07/2021 Ambulatory Visit Instructions Your Diagnosis Kidney stone Tests Performed Urnls Dip Stick Auto w/o Microscopy POC [id number] XR Abdomen 1 View -- Results Pending -- Please visit your patient portal for your results or contact your primary care physician. Your Care Team Attending Physician - Nahid KELLY, Rachelle Monroe Primary Care Physician - RODRIGO ROSA, SON This Is Your Medications List Contact [...] Rachelle Whitfield MD Where: [facility] [place] Normal [facility] Patient Educationon 12-08-19 Patient Education Urology [...] these instructions at home: Medicines ? Take [id number] and prescription medicines only as told by [...] 08/13/2008 Document Revised: 07/14/2019 Document Reviewed: 07/14/2019 [employer]! Patient Education ? 2019 [employer] [facility] Urology Office/Clinic Noteon 12-07-2021 Urology Office/Clinic Note [...] & JAYDA Follow-up With When Contact Information Rachelle Whitfield MD, URL, URO Additional Instructions: 6 mos KUB, JAYDA Patient Education Kidney Stones, [id number] I, Yolanda Mauro, personally scribed for Dr. [...] Cystoscopy (07/16/2011), Cysto (more content not included)... Normal [facility] Comment on above: Result Comment: Elec tronically Signed By: Rachelle Whitfield MD\.br\Date and Time Signed: 12/07/21 16:44 EDT\.br\Electronically Co-Signed By: Yolanda Mauro.br\Date and Time Co-Signed: 12/07/21 15:46 EDT Lab Reportson 10-18-2021 Lab Reports [id number]#[id number]:12 7 Normal [facility] Lab Reportson 10-11-2021 Lab Reports [id number]:12 7 Normal [facility] Lab Reports [id number]#[id number]:12 7 Normal [facility] PTH INTACTon 10-10-2021 PTH, Intact 13 pg/mL Critically low 15-65 [facility] Comment on above: Performed By: #### C KATYA, NA, CA, URIC, BUN, K, CO2, CL #### [facility] [address] [address] [address] Cesar Francis BUNon 10-09-2021 Urea nitrogen [Mass/Vol] 11.0 mg/dL Normal 7.0-18.0 [facility] Comment on above: Performed By: #### C KATYA, NA, CA, URIC, BUN, K, CO2, CL #### [facility] [address] [address] [address] Cesar Francis CALCIUMon 10-09-2021 Calcium [Mass/Vol] 9.2 mg/dL Normal 8.5-10.1 [facility] Comment on above: Performed By: #### C KATYA, NA, CA, URIC, BUN, K, CO2, CL #### [facility] [address] [address] [address] Cesar Francis CHLORIDEon 10-09-2021 Chloride [Moles/Vol] 104 mmol/L Normal 98-107 [facility] Comment on above: Performed By: #### C KATYA, NA, CA, URIC, BUN, K, CO2, CL #### [facility] [address] [place] [address] Dr. Cesar Francis CO2on 10-09-2021 CO2 [Moles/Vol] 28.5 mmol/L Normal 21.0-32.0 [facility] Comment on above: Performed By: #### C KATYA, NA, CA, URIC, BUN, K, CO2, CL #### [facility] [address] [place] [address] Dr. Cesar Francis CREATININEon 10-09-2021 Creatinine [Mass/Vol] 0.83 mg/dL Normal 0.55-1.02 [facility] Comment on above: Performed By: #### C KATYA, NA, CA, URIC, BUN, K, CO2, CL #### [facility] [address] [place] [address] Dr. Cesar Francis EGFR-AF BELGIAN >60 Normal >=60 [facility] Comment on above: Performed By: #### C KATYA, NA, CA, URIC, BUN, K, CO2, CL #### [facility] [address] [place] [address] Dr. Cesar Francis EGFR-NON AF BELGIAN >60 Normal >=60 [facility] Comment on above: Performed By: #### C KATYA, NA, CA, URIC, BUN, K, CO2, CL #### [facility] [address] [place] [address] Dr. Cesar Francis NAon 10-09-2021 Sodium [Moles/Vol] 143 mmol/L Normal 136-145 [facility] Comment on above: Performed By: #### C KATYA, NA, CA, URIC, BUN, K, CO2, CL #### [facility] [address] [place] [address] Dr. Cesar Francis PHOSPHORUSon 10-09-2021 Phosphate [Mass/Vol] 2.7 mg/dL Normal 2.6-4.7 [facility] Comment on above: Performed By: #### C KATYA, NA, CA, URIC, BUN, K, CO2, CL #### [facility] [address] [place] [address] Dr. Cesar Francis URIC ACID SERUMon 10-09-2021 Urate [Mass/Vol] 5.8 mg/dL Normal 2.6-6.0 [facility] Comment on above: Performed By: #### C KATYA, NA, CA, URIC, BUN, K, CO2, CL #### [facility] [address] [address] [address] Cesar Francis PROTIMEon 05-04-2017 INR Coag RelTime (PPP) 1.04 {INR} Normal 0.00-1.20 [facility] Comment on above: Order Comment: [facility]: NONE SPECIFIED Result Comment: Troy mmended therapeutic range is an INR of 2.0-3.0 exceptfor prevention of recurrent acute ID and mechanicalprosthetic heart valve where an INR of 2.5-3.5 isrecommended. Performed By: #### L 300.59650 ####Test performed at: [place] [address] PT SEC 11.0 seconds Normal 9.7-11.5 [facility] Comment on above: Order Comment: [facility]: NONE SPECIFIED Performed By: #### L 300.48831 ####Test performed at: [place] [address] CARDIAC CATHETERIZATIONon CARDIAC CATHETERIZATION PATIENT NAME: ANNELISE SNOW#: [id number]: ANNELISE SNOW#: [id number] OF PROCEDURE: 05/03/2017CARDIAC CATHHISTORY OF PRESENT ILLNESS: [...] was accessedwith a multipurpose needle and a 6-Bhutanese sheath inserted. Selective coronaryarteriography was performed using 6-Bhutanese JL4 and 6-Bhutanese JR4 catheters.Left ventriculography was performed using a 6-Bhutanese angled pigtail catheter.At the end of the [...] groove. The rest [facility] PATIENT NAME: BEKA SNOW [facility] REC: [id number] [facility] ACCOUNT NUM: [id number]: [place] [id number] : [id number] [place] [address] ATTENDING PHY: Candice Torres MDCARDIAC CATHETERIZATIONPATIENT NAME: ELDON SNOWR#: [id number] contain any significant disease.LEFT VENTRICULOGRAM: The left ventricular injection reveals a normal size leftventricle with normal contractility and normal ejection fraction. There is noangiographic mitral regurgitation.FINAL DIAGNOSIS:1. CAD-luminal irregularities, left main trunk-patent stent in proximal LAD-60-70% mid point. Posterior descending nggkqvpufj-43-84% mid rightcoronary artery.RECOMMENDATION: The circumflex stent will [...] at anappropriate time on the floor. MICHAEL MOREIRA/SEAN/[id number] 25D: 05/03/2017 13:24:11 E/S: Candice Torres MD05/07/17 0850Signature on [facility] PATIENT NAME: BEKA SNOW [facility] REC: [id number] [facility] ACCOUNT NUM: [id number]/BED: [place] [address] : [id number] [place] [address] ATTENDING PHY: Candice Torres MDCARDIAC CATHETERIZATION Normal [facility] CBC W/DIFFon 05-03-2017 BASO ABS 0.1 K/uL Normal 0.0-0.2 [facility] Comment on above: Order Comment: CONSE RVATION Performed By: #### L 200.55671 ####Test performed at: [address] [address] Basophils/100 WBC Auto (Bld) 1.8 % Normal [facility] Comment on above: Order Comment: CONSE RVATION Performed By: #### L 200.93437 ####Test performed at: [address] [address] EOS ABS 0.2 K/uL Normal 0.0-0.5 [facility] Comment on above: Order Comment: CONSE RVATION Performed By: #### L 200.48597 ####Test performed at: [address] [address] Eosinophils/100 leukocytes 2.6 % Normal [facility] Comment on above: Order Comment: CONSE RVATION Performed By: #### L 200.46411 ####Test performed at: [address] [address] Erythrocyte distribution width Auto Ratio (RBC) 13.7 % Normal 11.5-14.5 [facility] Comment on above: Order Comment: CONSE RVATION Performed By: #### L 200.08921 ####Test performed at: [place] [address] Erythrocytes (RBC) 5.06 10*6/uL Normal 3.5-5.5 [facility] Comment on above: Order Comment: CONSE RVATION Performed By: #### L 200.50498 ####Test performed at: [place] [address] Erythrocytes (RBC) 0.000 10*6/uL Normal 0-0.012 [facility] Comment on above: Order Comment: CONSE RVATION Performed By: #### L 200.89410 ####Test performed at: [place] [address] Hematocrit (HCT) 42.6 % Normal 36.0-48.0 [facility] Comment on above: Order Comment: CONSE RVATION Performed By: #### L 200.81538 ####Test performed at: [place] [address] Hemoglobin mass conc (Bld) 14.1 g/dL Normal 12.0-15.0 [facility] Comment on above: Order Comment: CONSE RVATION Performed By: #### L 200.74472 ####Test performed at: [place] [address] IG % 0.3 % Normal [facility] Comment on above: Order Comment: CONSE RVATION Performed By: #### L 200.66802 ####Test performed at: [place] [address] IG ABS 0.02 K/uL Normal 0-0.05 [facility] Comment on above: Order Comment: CONSE RVATION Performed By: #### L 200.67284 ####Test performed at: [address] [address] Lymphocytes 1.5 10*3/uL Normal 1.2-3.5 [facility] Comment on above: Order Comment: CONSE RVATION Performed By: #### L 200.08341 ####Test performed at: [address] [address] Lymphocytes/100 leukocytes 20.2 % Normal [facility] Comment on above: Order Comment: CONSE RVATION Performed By: #### L 200.99562 ####Test performed at: [address] [address] MCH 27.9 pg Normal 25.4-34.6 [facility] Comment on above: Order Comment: CONSE RVATION Performed By: #### L 200.76956 ####Test performed at: [address] [address] MCHC mass conc (RBC) 33.1 g/dL Normal 31.5-36.5 [facility] Comment on above: Order Comment: CONSE RVATION Performed By: #### L 200.25584 ####Test performed at: [address] [address] MCV 84.2 fL Normal 79.0-98.0 [facility] Comment on above: Order Comment: CONSE RVATION Performed By: #### L 200.35481 ####Test performed at: [address] [address] MONO ABS 0.7 K/uL Normal 0.0-1.0 [facility] Comment on above: Order Comment: CONSE RVATION Performed By: #### L 200.15401 ####Test performed at: [address] [address] Monocytes/100 leukocytes 9.4 % Normal [facility] Comment on above: Order Comment: CONSE RVATION Performed By: #### L 200.92521 ####Test performed at: [address] [address] Neutrophils 4.8 10*3/uL Normal 1.4-6.6 [facility] Comment on above: Order Comment: CONSE RVATION Performed By: #### L 200.45226 ####Test performed at: [address] [address] Neutrophils/100 WBC Auto (Bld) 65.7 % Normal [facility] Comment on above: Order Comment: CONSE RVATION Performed By: #### L 200.65966 ####Test performed at: [address] [address] NRBC % 0.0 /100 WBC Normal 0-0.2 [facility] Comment on above: Order Comment: CONSE RVATION Performed By: #### L 200.30420 ####Test performed at: [address] [address] Platelet mean volume (PMV) 11.9 fL Normal 8.7-12.4 [facility] Comment on above: Order Comment: CONSE RVATION Performed By: #### L 200.78534 ####Test performed at: [address] [address] Platelets 207 10*3/uL Normal 140-440 [facility] Comment on above: Order Comment: CONSE RVATION Performed By: #### L 200.96668 ####Test performed at: [address] [address] WBC (Leukocytes) 7.2 10*3/uL Normal 3.9-11.0 [facility] Comment on above: Order Comment: CONSE RVATION Performed By: #### L 200.40532 ####Test performed at: [address] [address] COMP META PANELon 05-03-2017 Alanine aminotransferase (ALT) 17 U/L Normal 13-61 [facility] Comment on above: Order Comment: CONSE RVATIONIs patient fasting? UNKNOWN Performed By: #### L 500.06057, L500.28571, L500.54957, L500.56777 ####Test performed at: [place] [address] Albumin 3.4 g/dL Normal 3.4-5.0 [facility] Comment on above: Order Comment: CONSE RVATIONIs patient fasting? UNKNOWN Performed By: #### L 500.07293, L500.24581, L500.72497, L500.14329 ####Test performed at: [place] [address] ALK PHOS TOTAL 96 U/L Normal 45-117 [facility] Comment on above: Order Comment: CONSE RVATIONIs patient fasting? UNKNOWN Performed By: #### L 500.08590, L500.77536, L500.31805, L500.70481 ####Test performed at: [place] [address] Aspartate aminotransferase (AST) 15 U/L Normal 15-37 [facility] Comment on above: Order Comment: CONSE RVATIONIs patient fasting? UNKNOWN Performed By: #### L 500.48290, L500.65514, L500.95180, L500.05988 ####Test performed at: [place] [address] BILI TOTAL 0.7 mg/dL Normal 0.2-1.0 [facility] Comment on above: Order Comment: CONSE RVATIONIs patient fasting? UNKNOWN Performed By: #### L 500.48795, L500.17532, L500.37863, L500.35892 ####Test performed at: [place] [address] Calcium 8.3 mg/dL Low 8.5-10.1 [facility] Comment on above: Order Comment: CONSE RVATIONIs patient fasting? UNKNOWN Performed By: #### L 500.84838, L500.50130, L500.86055, L500.70848 ####Test performed at: [place] [address] Chloride 108 mmol/L High 98-107 [facility] Comment on above: Order Comment: CONSE RVATIONIs patient fasting? UNKNOWN Performed By: #### L 500.63567, L500.49986, L500.63754, L500.17042 ####Test performed at: [place] [address] CO2 30 mmol/L Normal 21-32 [facility] Comment on above: Order Comment: CONSE RVATIONIs patient fasting? UNKNOWN Performed By: #### L 500.97289, L500.46547, L500.28735, L500.08346 ####Test performed at: [place] [address] Creatinine 0.648 mg/dL Normal 0.550-1.020 [facility] Comment on above: Order Comment: CONSE RVATIONIs patient fasting? UNKNOWN Performed By: #### L 500.24051, L500.11392, L500.64756, L500.15246 ####Test performed at: [place] [address] Glucose mass conc 94 mg/dL Normal 74-106 [facility] Comment on above: Order Comment: CONSE RVATIONIs patient fasting? UNKNOWN Performed By: #### L 500.72130, L500.26960, L500.61750, L500.86328 ####Test performed at: [address] [address] Potassium molar conc 4.2 mmol/L Normal 3.5-5.1 [facility] Comment on above: Order Comment: CONSE RVATIONIs patient fasting? UNKNOWN Performed By: #### L 500.73997, L500.97379, L500.39177, L500.40760 ####Test performed at: [place] [address] Protein 6.4 g/dL Normal 6.4-8.2 [facility] Comment on above: Order Comment: CONSE RVATIONIs patient fasting? UNKNOWN Performed By: #### L 500.34981, L500.96468, L500.35206, L500.30365 ####Test performed at: [place] [address] Sodium 142 mmol/L Normal 136-145 [facility] Comment on above: Order Comment: CONSE RVATIONIs patient fasting? UNKNOWN Performed By: #### L 500.14720, L500.35505, L500.41887, L500.44502 ####Test performed at: [place] [address] Urea nitrogen 10 mg/dL Normal 7-18 [facility] Comment on above: Order Comment: CONSE RVATIONIs patient fasting? UNKNOWN Performed By: #### L 500.65227, L500.06224, L500.55973, L500.68074 ####Test performed at: [place] [address] Cardiology Progress Noteon 0 05-03-2017 Cardiology Progress Note [facility] Pt Name: QUE SNOWA[address] MR#: [id number] [address] ACCT: [id number] NOTE - Cardiology : 59Service Date: 05/04/17 1131NAME: ANNELISE SNOW#: [id number] OF SERVICE: 05/04/2017CARDIOLOGY PROGRESS NOTESUBJECTIVE: Mrs. Snow [...] me with jason 1 month. CANDICE TORRES, MDRJS/MODL/[id number] 35D: 05/04/2017 11:31:37 eSign Date and TimeSteele,Candice Blanca MD Signature on File 05/04/17 1156 Normal [facility] EKGon 05-03-2017 EKG Acquired on [...] AMReferred By: Confirmed By:CANDICE TORRES [id number] 2017 [facility] PT NAME: ELDON SNOWSherry#: [id number] [place] [address] ACCT: [id number]: 59EKG REPORT Normal [facility] ESTWoo FRANK CLRon 05-03-2017 Creatinine 104.424 ML/MIN Normal [facility] Comment on above: Order Comment: CONSE RVATIONIs patient fasting? UNKNOWN Result Comment: This result is an ESTIMATED blood creatinine clearance valuewhich is derived from the patient age, sex, weight, andprevious blood creatinine result. Performed By: #### L 500.20552, L500.18204, L500.21452, L500.63427 ####Test performed at: [place] [address] GFR ESTIMATEon 05-03-2017 IF AMER > 60 Normal > 60 [facility] Comment on above: Order Comment: CONSE RVATIONIs patient fasting? UNKNOWN Result Comment: eGFR (Estimated GFR) Units of measure:mL/min/1.73 meters sq.*CALCULATION REVISED 12/28/2014;IDMS-traceable MDRD equationeGFR is derived from the reexpressed MDRD Study equationusing the following parameters: serum creatinine, age,gender and race. An eGFR<60 mL/min/1.73m2 for >3 monthsis consistent with chronic kidney disease. Refer to KDOQIguidelines for clinical interpretation. Performed By: #### L 500.53513, L500.93235, L500.95086, L500.11965 ####Test performed at: [place] [address] IF non-AFR AMER > 60 Normal > 60 [facility] Comment on above: Order Comment: CONSE RVATIONIs patient fasting? UNKNOWN Performed By: #### L 500.17435, L500.63499, L500.93843, L500.83818 ####Test performed at: [place] [address] LIPID PROFILEon 05-03-2017 Cholesterol 255 mg/dL High <200 [facility] Comment on above: Order Comment: CONSE RVATIONIs patient fasting? UNKNOWN Result Comment: <200 mg/dL (Desirable) 200-240 mg/dL (Borderline) >240 mg/dL (High Risk) Performed By: #### L 500.55353, L500.28932, L500.04290, L500.80541 ####Test performed at: [place] [address] HDL Cholesterol 51 mg/dL Normal 40-60 [facility] Comment on above: Order Comment: CONSE RVATIONIs patient fasting? UNKNOWN Performed By: #### L 500.76445, L500.07556, L500.52147, L500.98490 ####Test performed at: [place] [address] LDL Cholesterol 188 mg/dL High 60-130 [facility] Comment on above: Order Comment: CONSE RVATIONIs patient fasting? UNKNOWN Performed By: #### L 500.86236, L500.92113, L500.81962, L500.71815 ####Test performed at: [place] [address] Triglyceride 99 mg/dL Normal <150 [facility] Comment on above: Order Comment: CONSE RVATIONIs patient fasting? UNKNOWN Result Comment: <150 mg/dL (Normal) 150-199 mg/dL (Borderline) 200-499 mg/dL (High) >500 mg/dL (Very High) Performed By: #### L 500.18756, L500.76324, L500.29593, L500.12348 ####Test performed at: [place] [address] PROTIMEon 05-03-2017 INR Coag RelTime (PPP) 1.06 {INR} Normal 0.00-1.20 [facility] Comment on above: Order Comment: CONSE RVATIONList patient's anticoagulants for PT: HEPARIN Result Comment: [place] mmended therapeutic range is an INR of 2.0-3.0 exceptfor prevention of recurrent acute ID and mechanicalprosthetic heart valve where an INR of 2.5-3.5 isrecommended. Performed By: #### L 300.35564 ####Test performed at: [address] [address] PT SEC 11.2 seconds Normal 9.7-11.5 [facility] Comment on above: Order Comment: CONSE RVATIONList patient's anticoagulants for PT: HEPARIN Performed By: #### L 300.99565 ####Test performed at: [address] [address] Vital Signs Date Time Vital Sign Value Performing Clinician Arti cotton 12-20-2023 09:47-0400 Body height 165.[address] [facility] 12-20-2023 09:47-0400 Body mass index (BMI) [Ratio] 27.7 kg/m2 [facility] 12-20-2023 09:47-0400 Body weight 75.[address] [facility] 12-20-2023 09:47-0400 Diastolic blood pressure 77 mm[Hg] [facility] 12-20-2023 09:47-0400 Heart rate 68 /min [facility] 12-20-2023 09:47-0400 Respiratory rate 12 /min [facility] 12-20-2023 09:47-0400 Systolic blood pressure 127 mm[Hg] [facility] 08-15-2023 09:13-0400 Body height 165.[address] [facility] 08-15-2023 09:13-0400 Body mass index (BMI) [Ratio] 26.6 kg/m2 [facility] 08-15-2023 09:13-0400 Body weight 72.[address] [facility] 08-15-2023 09:13-0400 Diastolic blood pressure 69 mm[Hg] [facility] 08-15-2023 09:13-0400 Heart rate 60 /min [facility] 08-15-2023 09:13-0400 Respiratory rate 12 /min [facility] 08-15-2023 09:13-0400 Systolic blood pressure 118 mm[Hg] [facility] 06-05-2023 08:38-0400 Body height 165.[address] [facility] 06-05-2023 08:38-0400 Body mass index (BMI) [Ratio] 26.8 kg/m2 [facility] 06-05-2023 08:38-0400 Body weight 73.[address] [facility] 06-05-2023 08:38-0400 Diastolic blood pressure 76 mm[Hg] [facility] 06-05-2023 08:38-0400 Heart rate 73 /min [facility] 06-05-2023 08:38-0400 Respiratory rate 12 /min [facility] 06-05-2023 08:38-0400 Systolic blood pressure 124 mm[Hg] [facility] 06-19-2021 14:55-0400 Blood Pressure Location Rachelle Lue [facility] 06-19-2021 14:55-0400 Diastolic blood pressure 78 mm[Hg] Rachelle Lue [facility] 06-19-2021 14:55-0400 Heart rate 78 /min Rachelle Lue [facility] 06-19-2021 14:55-0400 Respiratory rate 16 /min Rachelle Lue [facility] 06-19-2021 14:55-0400 Systolic blood pressure 115 mm[Hg] Rachelle Lue [facility] Encounters Encounter Date Encounter Type Care Provider Facility Start: 12-20-2023 End: 12-20-[address] [facility] Work Phone: Start: 12-20-2023 End: 12-20-2023 Patient encounter procedure [facility] Work Phone: Start: 11-19-2023 Non-patient / Non-visit [facility] [place] Work Phone: Start: 10-14-2023 End: 10-14-2023 ambulatory NADIA PHILLIPSMAYCO[facility] Not Available Start: 09-30-2023 End: 09-30-2023 ambulatory RUFINO Corrales APLING Not Available Start: 09-09-2023 End: 09-09-2023 ambulatory DALE BROWNO Not Available Start: 09-04-2023 End: 09-04-2023 ambulatory RUFINO B APLING Not Available Start: 08-28-2023 End: 08-28-2023 Evaluation and management of inpatient BACILIO A [facility] Start: 08-28-2023 End: 08-28-2023 Evaluation and management of inpatient [facility] Start: 08-15-2023 End: 08-15-[address] [facility] Work Phone: Start: 08-15-2023 End: 08-15-2023 Patient encounter procedure [facility] Work Phone: Start: 08-07-2023 End: 08-07-2023 ambulatory [facility] Start: 08-07-2023 End: 08-07-2023 Encounter for preprocedural cardiovascular examination [facility] Start: 08-01-2023 Encounter for other preprocedural examination [facility] Start: 08-01-2023 End: 08-01-[address] [facility] Start: 07-30-2023 End: 07-30-2023 ambulatory LORRAINE AMEZCUASTON Not Available Start: 07-22-2023 End: 07-22-2023 ambulatory LORRAINE BURTON Not Available Start: 07-16-2023 End: 07-16-2023 ambulatory LORRAINE BURTON Not Available Start: 06-05-2023 End: 06-05-[address] [facility] Work Phone: Start: 06-05-2023 End: 06-05-2023 Encounter for general adult medical examination without abnormal findings [facility] Start: 06-05-2023 End: 06-05-2023 Patient encounter procedure [facility] Work Phone: Start: 05-31-2023 Non-patient / Non-visit [facility] [place] Work Phone: Start: 05-08-2023 Non-patient / Non-visit [facility] [place] Work Phone: Start: 05-08-2023 Non-patient / Non-visit [facility] [place] Work Phone: Start: 05-07-2023 End: 05-07-2023 ambulatory ABI GIBBS Not Available Start: 04-30-2023 End: 04-30-2023 ambulatory LORRAINE BURTON Not Available Start: 04-09-2023 End: 04-09-2023 ambulatory LORRAINE BURTON Not Available Start: 04-01-2023 End: 04-01-2023 ambulatory ABI GIBBS Not Available Start: 03-26-2023 Patient encounter procedure [facility] Start: 03-18-2023 End: 03-18-2023 ambulatory ABI GIBBS Not Available Start: 01-30-2023 End: 01-30-2023 ambulatory [facility] Start: 08-20-2022 ambulatory Rachelle Whitfield Facility:[facility] Start: 06-30-2022 End: 07-01-[address] HAIR DIETZ Facility:[facility] Start: 06-21-2022 End: 06-22-[address] HAIR DIETZ Facility:[facility] Start: 06-20-2022 ambulatory BRANDT Ramirez ty:[facility] Start: 06-09-2022 ambulatory BRANDT MCNAMARA Facili ty:[facility] Start: 05-31-2022 End: 06-01-2022 ambulatory BRANDT MCNAMARA Facility:[facility] Start: 05-22-2022 End: 05-23-2022 ambulatory RACHELLE M LUE . Facility:[facility] Start: 05-18-2022 End: 05-19-2022 ambulatory RACHELLE M LUE . Facility:[facility] Start: 04-17-2022 End: 04-18-[address] SON IRIZARRY Facility:[facility] Start: 02-15-2022 Encounter for genera l adult medical examination without abnormal findings DR SON IRIZARRY [facility] Start: 02-09-2022 End: 02-10-[address] SON IRIZARRY Facility:[facility] Start: 02-09-2022 End: 02-10-2022 Encounter for general adult medical examination without abnormal findings DR SON IRIZARRY Facility: Start: 12-07-2021 End: 12-08-2021 ambulatory Rachelle M. Lue Facility:[facility] Start: 12-07-2021 End: 12-07-2021 Patient encounter procedure Rachelle M. Lue [facility] Start: 10-09-2021 End: 10-10-2021 ambulatory RACHELLE M LUE . Facility: Start: 06-19-2021 End: 06-19-2021 Patient encounter procedure Rachelle M. Lue [facility] Start: 05-03-2017 End: 05-04-2017 Evaluation and management of inpatient Family Physician Unavailable Facility:[facility] Procedures Date Procedure Procedure Detail Performing Clinician [...] Activity Detail Author Start: 06-05-2023 Patient referral [facility] Work Phone: Patient referral [facility] Work Phone: [facility] Immunizations Immunization Date Immunization Notes Care Provider Rossi bourgeois NEGATED: Highlighted row has not occurred!03-18-2019 influenza virus vaccine, live, attenuated, for intranasal use Rachelle Whitfield [facility] Payers Date Payer Category Payer Private Health Insurance [id number] Self-pay [id number] 1960 Unknown [id number] 1960 Unknown [id number] 2.16.84 0.1.031940.3.579.2.593 1959 Unknown [id number] 2.16.84 0.1.017475.3.579.2.593 1959 Unknown [id number] 2.16.84 0.1.149719.3.579.2.593 1959 Unknown [id number] 2.16.84 0.1.694042.3.579.2.593 1959 Unknown [id number] 2.16.84 0.1.094441.3.579.2.593 1959 Unknown [id number] 2.16.84 0.1.700844.3.579.2.593 1959 Unknown [id number] 2.16.84 0.1.570928.3.579.2.593 1959 Unknown [id number] 2.16.84 0.1.005186.3.579.2.593 1959 Unknown [id number] 2.16.84 0.1.441848.3.579.2.593 1959 Unknown [id number] 2.16.84 0.1.183193.3.579.2.593 1959 Unknown [id number] 2.16.84 0.1.413038.3.579.2.593 1959 Unknown [id number] 2.16.8 40.1.452961.3.579.2.727 1959 Unknown [id number] 2.16.8 40.1.276670.3.579.2.727 1959 Unknown [id number] 2.16.8 40.1.125232.3.579.2.1286 1959 Unknown [id number] 2.16.8 40.1.269283.3.579.2.1286 1959 Unknown [id number] 2.16.8 40.1.479930.3.579.2.1286 1959 Unknown [id number] 2.16.8 40.1.433510.3.579.2.1286 1959 Unknown [id number] 2.16.8 40.1.873114.3.579.2.1286 1959 Unknown [id number] 2.16.8 40.1.656344.3.579.2.1286 1959 Unknown [id number] 2.16.84 0.1.436666.3.579.2.1259 1959 Unknown [id number] 2.16.84 0.1.591720.3.579.2.1259 1959 Unknown [id number] 2.16.84 0.1.995645.3.579.2.1259 1959 Unknown [id number] 2.16.84 0.1.895658.3.579.2.1259 1959 Unknown [id number] 2.16.84 0.1.623900.3.579.2.1259 1959 Unknown [id number] 2.16.84 0.1.297462.3.579.2.1259 1959 Unknown [id number] 2.16.84 0.1.631512.3.579.2.1259 1959 Unknown [id number] 2.16.84 0.1.566249.3.579.2.1259 1959 Unknown [id number] 2.16.84 0.1.513343.3.579.2.1259 1959 Unknown [id number] 2.16.84 0.1.560242.3.579.2.1259 1959 Unknown [id number] 2.16.84 0.1.356893.3.579.2.1259 1959 Unknown [id number] 2.16.84 0.1.014683.3.579.2.1259 1959 Unknown [id number] 2.16.84 0.1.187581.3.579.2.1259 1959 Unknown [id number] 2.16.840 .1.864554.3.579.2.1259 Self-pay Self Pay [id number] Social History Date Type Detail Facility Start: 02-05-2017 End: 06-19-2021 Tobacco smoking status Ex-smoker (finding) [facility] Sex Assigned At Female [facility] Start: 1960 Sex Assigned At Female [facility] Functional Status Date Assessment Result Facility 12-07-2021 Functional Status N/A [facility] Clinical Notes 06-19-2021 to 08-07-2023 Note Date & Type Note Facility 08-07-2023 Note [facility] - [facility] Subjective Pam Snow is a 63 y.o. year old female patient being seen for CAD, statin intolerance, and stable angina. She needs cleared for shoulder surgery, scheduled 08/[address] Burton. She had EKG last week at [facility]. 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 Allergies Allergies Allergen Reactions [id number] Reductase Inhibitors Unknown Medications Current Outpatient Medications: aspirin 81 mg EC tablet, Take 81 mg by mouth in the morning., Disp: , Rfl: buPROPion XL (Wellbutrin XL) 300 mg 24 hr tablet, , Disp: , Rfl: cyanocobalamin (Vitamin B-12) 1,000 mcg/mL injection, , Disp: , Rfl: fkklyioywvq-ozmqshksv-uegvgvzw (Trelegy Ellipta) 100-62.5-25 mcg blister with device, 1 puff 1 (one) time each day at the same time., Disp: , Rfl: hydroCHLOROthiazide (HYDRODiuril) 25 mg ta (more content not included)... [facility] 01-30-2023 Note Currently treated wi th praluent injection [facility] 01-30-2023 Note Coronary artery dise ase is stable Continue GDMT- ASA, praluent continue risk factor modifications- heart healthy diet, regular exercise as tolerated and continue all medications. [facility] 01-30-2023 Note Hypertension is curr ently well controlled 116/76 Continue all medications- hydrochlorothiazide [facility] 01-30-2023 Note Lipid abnormalities are stable with praluent use r/t her being intolerant of statins and zetia. She is to send most recent lipid level [facility] 01-30-2023 Note Denied any angina since last vis it [facility] 01-30-2023 Note [facility] CARDIOLOGY PROGR ESS [...] She did see Dr. 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 Hasn't smoked since 2008. She was unable to tolerate Zetia and pravastatin that Dr. Mcnamara started her on in May 2022. Previous HPI-- Currently she is very concerned about her family h/o CAD/CHF/and valvular disease. States her brother passed 2 years ago s/p ID- but admits that he was 100pounds overweight, [...] Former BSA 1.8 m??? Allergies Allergen Reactions Nnmftrq-Frw-Wss Reductase Inhibitors Unknown Medications: Current Outpatient Medications on File Prior to Visit Medication Sig Dispense Refill aspirin 81 mg EC tablet Take 81 mg by mouth in the morning. buPROPion XL (Wellbutrin XL) 300 mg 24 hr tablet cyanocobalamin (Vitamin B-12) 1,000 mcg/mL injection dbawvvcdzfp-obmcebhuh-zvnbwoqv (Trelegy Ellipta) 100-62.5-25 mcg blister with device [...] recent lipid profile from her recent employer [employer] Addendum- 16:00 pm 11/22/22- Chol 238, Trig, [...] all medications- hydrochlorothiazide Coronary artery disease of [place] artery of [place] heart with stable angina pectoris (CMS/HCC) Coronary artery disease is stable Continue GDMT- ASA, praluent continue risk factor modifications- heart healthy diet, regular ex (more content not included)... [facility] 01-30-2023 Note Patient here for 3 m o follow up CAD, hypertension, and hyperlipidemia. Denies chest pain, SOB, lightheadedness, and palpitations. Review of Systems Respiratory: Positive for cough. All other systems reviewed and are negative. [facility] 12-07-2021 Hospital Discharge instructions Patient Education 12/07/2021 15:35:55 Kidney Stones, Jxtk-kg-Ynam Kidney Stones Kidney stones are rock-like masses [...] Follow these instructions at home: Medicines Take miho-qwv-aokixnj and prescription medicines only as told by [...] 07/14/2019 Document Reviewed: 07/14/2019 Elsevier Patient Education 2020 [employer] Follow Up Care 06/19/2021 15:23:52 With:Nahid KELLY, WILLOW Little, URO Address: When: Unknown [facility] 06-19-2021 Hospital Discharge instructions Patient Education 06/19/2021 [...] include: ?Spinach. ?Rhubarb. ?Beets. ?Potato chips and barbadian fries. ?Nuts. If you regularly take a diuretic medicine, make sure to eat at least 1 2 fruits or vegetables high in potassium each day. These include: ?Avocado. ?Banana. ?Williams, prune, carrot, or tomato juice. ?Baked potato. [...] Casseroles. Pizza. Lasagna. Frozen meals. Potato chips. Bhutanese fries. Summary You can reduce your risk [...] 06/22/2011 Document Revised: 06/17/2019 Document Reviewed: 02/05/2017 [employer] Patient Education 2020 [employer]. Follow Up Care 05/15/2021 15:10:22 With:Nahid KELLY, Rachelle Monroe, URL, URO Address: [facility] [place] [address] [address]- When:09/18/2021 Comments:w/24hr urine [facility] Evaluation + Plan note Future Appointments Appointment Date:10/02/2021 03:15:00 PM Scheduled Provider:Rachelle Whitfield MD Location:[facility] Appointment Type:URO Office Visit [facility] Evaluation + Plan note Future Appointments Appointment Date:06/07/2022 03:15:00 PM Scheduled Provider:Nahid KELLY, Rachelle Monroe Location:[facility] Appointment Type:URO Office Visit [facility] Evaluation note Diagnosis Onset Date ASHD (arteriosclerotic heart disease) acute Chronic bronchitis, simple a cute Elevated cholesterol acute GERD (gastroesophageal reflux disease) acute Hypertension acute Screening for colon cancer n oneactive Screening mammogram for breast cancer noneactive Wellness examination noneact yudelka [facility] Work Phone: Evaluation note* Diagnosis Onset [...] acute Preop exam for internal medicine noneactive [facility] Work Phone: Evaluation note* Diagnosis Onset Date Resolution Status Fatigue acute Primary insomnia acute [facility] Work Phone: Hospital course Narrative No data available for this section [facility] Progress note No data available for this section [facility] Summary Purpose Family History Relationship Condition Age at Onset Recorded Date/T rudy father Unknown Advance Directives Advance Directive Response Recorded Date/ Time Advance Directives No January 9:20pm Chief Complaint and Reason for Visit Chief Complaint Amb Documentation Amb Documentation Wellness Reason for Visit ASHD (arteriosclerot ic heart disease) Chronic bronchitis, simple Elevated cholesterol GERD (gastroesophageal reflux disease) Hypertension Screening for colon cancer Screening mammogram for breast cancer Wellness examination Chief Complaint Wellness pre op [facility] Reason for Visit ASHD (arteriosclerot ic heart disease) Chronic bronchitis, simple Elevated cholesterol GERD (gastroesophageal reflux disease) Hypertension Screening for colon cancer Screening mammogram for breast cancer Wellness examination ASHD (arteriosclerotic heart disease) Chronic bronchitis, simple Elevated cholesterol Hypertension Preop exam for internal medicine Chief Complaint Insomnia Reason for Visit Fatigue Primary insomnia Additional Source Comments INFORMATION SOURCE (unrecogn ized section and content) DATE CREATED AUTHOR 08/30/2017 [facility] DATE CREATED AUTHOR AUTHOR'S ORGANIZ ATION 07/07/2022 [facility] DATE CREATED AUTHOR AUTHOR'S ORGANIZ ATION 09/26/2022 [facility] DATE CREATED AUTHOR AUTHOR'S ORGANIZ ATION 08/29/2023 [facility] DATE CREATED AUTHOR AUTHOR'S ORGANIZ ATION 10/16/2023 [facility] DATE CREATED AUTHOR AUTHOR'S ORGANIZ ATION 11/22/2023 [facility] Care Team (unrecognized sect ion and content) [...] 2023 Team Status: Active Member Role Status Janice Irizarry DO Primary Care Provide r, Attending Provider Active Start: May 31, 2023 Team Status: Inactive Member Role Status Dates Son Irizarry DO Primary Care Provide r, Attending Provider Active Start: June 05, 2023 End: June 05, 2023 Team Status: Inactive Member Role Status Dates Son Irizarry DO Primary Care Provide r, Attending Provider Active Start: August 15, 2023 End: August 15, 2023 Team Status: Active Member Role Status Dates Son Irizarry DO Primary Care Provider Active Start: November 19, 2023 Brandt Mcnamara MD Attending Provider Active Start: November 19, 2023 Team Status: Inactive Member Role Status Janice Irizarry DO Primary Care Provide r, Attending Provider Active Start: December 20, 2023 End: December 20, 2023 Goals (unrecognized section and content) Goals [...] BE BASED ON THE PRIMARY CLINICAL RECORDS. [facility], [facility]. provides no warranty or guarantee of the accuracy or completeness of information in this document.
[2023-12-26 04:11] LABS: DHEA-Sulfate 62.4 ug/dL (29.4-220.5); Sex Horm Binding Glob, Serum 32.6 nmol/L (17.3-125.0)
[2023-12-26 08:13] LABS: Estradiol <5.0 pg/mL (0.0-54.7); Progesterone <0.1 ng/mL (.)
[2023-12-27 14:12] LABS: Estrone, Serum 7 pg/mL (0-125)
[2023-12-28 20:07] LABS: Testosterone 5 ng/dL (3-67)
== END 2023-12-25 06:48 | disposition home or self-care (01) ==
LOC: LAB 06:49
PROVIDERS: PCP Internal Medicine; Visit Provider Internal Medicine
DX: E34.9 Endocrine disorder, unspecified (principal); Z78.0 Asymptomatic menopausal state
CPT/HCPCS: 36415; 82306; 82533; 82627; 82670; 82679; 84144; 84270; 84402; 84403

== ENCOUNTER 2024-03-11 09:16 | Emergency (ER) | payer OTHER, SELFPAY ==
[2024-03-11] VITALS (15 sets, daily range): BP systolic 99–147; BP diastolic 64–78; PULSE 82–92; TEMP 36.9; O2SAT 93–97; BMI 25.0
--- OUTSIDE RECORDS SUMMARY | 2024-03-11 09:41 | XMS_ITS | CCD ---
Author Organization [facility] Care Team Providers Care Character Artist Name Role Phone Unavailable, Family Physician Unavailable [...] MCNAMARA Admitting Unavailable BRANDT MCNAMARA Attending Unavailable RODRIOG, DR FONG Primary Care Unavailable LUE .RACHELLE [...] Unavailable APLING, RUFINO Corrales Attending Unavailable KATIEDALE FAY Attending Unavailable APLING, RUFINO Corrales Attending Unavailable NADIA GILL Attending Unavail able APLING, RUFINO Corrales Referring Unavailable MOUKARBEL, BRANDT Attending Unavailable MOUKARBEL, BRANDT Attending Unavailable Allergies Allergy Classification Reported Allergen(s) Allergy Type Date of Onset Reaction(s) Facility (3 sources) Hmg-Coa Reductase Inhibitors (Statins); Translations: [statins] Drug allergy Unknown (qualifier value) [facility] (4 sources) black walnut pollen extract; Translations: [YFABYUJ-LNS-EFZ REDUCTASE INHIBITORS] Drug Allergy 4 [facility] Medications Current Medications Medication Drug Class(es) Dates Sig (Normalized) Sig (Original) [id number] 200 actuat albuterol 0.09 mg/actuat metered dose [...] PO Twice daily June 04, 2023 12:00am Otcpupcfaoc-Twafagpow-Ui lanter (3 sources) Anticholinergi c, Corticosteroid , beta2-Adrenerg ic Agonist Start: 06-04-2023 Zroezmonitj-Fxouvkosh-M ilanter (Trelegy Ellipta) 100-62.5-25 mcg blister with [...] BID, # 180 tab(s), Refills(s) 3, Pharmacy: [facility], 162, cm, 03/16/20 8:23:00 EST, [...] Chronic Coronary atherosclerosis and other heart disease (12 sources) Atherosclerotic heart disease of [place] coronary artery without angina pectoris; Translations: [Coronary arteriosclerosis] Onset: 06-27-2022 06-04-2023 Chronic Coronary atherosclerosis and other heart disease (2 sources) Presence of coronary angioplasty implant and graft; Translations: [Presence of coronary angioplasty implant and graft] Onset: 01-29-2024 Episodic Disorders of lipid metabolism (14 sources) Hypercholesterolemia; Translations: [Hyperlipidemia] Onset: 05-21-2022 03-05-2019 [...] NEOPLSM TRACH BRON LNG] Onset: 06-25-2022 Episodic Residual codes; unclassified (2 sources) Other specified health status; Translations: [Other specified health status] Onset: 08-01-2022 Episodic Screening and history of mental health [...] Classification Problem Date Documented Da te Episodic/Chronic Unclassified (2 sources) Atrophy of left kidney 05-15-2021 Unclassified (2 sources) cardiac( Confirmed ) 02-15-2010 Unclassified (2 sources) low potassium( Confirmed ) 02-15-2010 Unclassified (1 source) ACUTE COUGH; Translations: [ACUTE COUGH] Onset: 04-17-2022 Results Test Name Value Interpretation Reference Range Facility Office Visiton 01-29-2024 Follow-up visit [id number] Kell Snow 1960 F Date Provider Department Center 01/29/2024 BRANDT BENJAMIN SANJANA [facility] Family History Problem Relation Age of Onset Other Mother Coronary artery disease Sister Peripheral vascular disease Sister Coronary artery disease Brother Heart failure Brother Atrial fibrillation Brother Family Status - Relation Status Age at Mother Sister Brother Level of Service:03149 CO OFFICE/OUTPATIENT ESTABLISHED LOW MDM 20 MIN Normal [facility] 36on 11-20-2023 36 Regarding liver and lipid panel performed on 11/19/2023: MD Marilu Robles MA Her LDL is down to 75 from 204. This is great result. I can see her in 3 months. Patient made aware. Scheduled her an apt for Jan 2024. Normal [facility] Cholesterol in LDL Calc [Mas s/Vol]on 11-19-2023 Cholesterol in LDL [Mass/Vol] 75.6 mg/dL [facility] Comment on above: <100 mg/dl [id number] 0-129 mg/dl NEAR OR ABOVE VPSKCMK503-339 mg/dl BORDERLINE [id number] mg/dl HIGH>190 mg/dl VERY HIGH Cholesterol in VLDL Calc [Ma ss/Vol]on 11-19-2023 Cholesterol in VLDL [Mass/Vol] 12.4 mg/dL [facility] Globulin Calc (S) [Mass/Vol] on 11-19-2023 Globulin (S) [Mass/Vol] 3.1 g/dL [facility] Laboratory - Chemistry and C hemistry - challengeon 11-19-2023 Albumin [Mass/Vol] 3.4 g/dL 3.4-5.0 [facility] ALP [Catalytic activity/Vol] 52 U/L 46-116 [facility] ALT [Catalytic activity/Vol] 32 U/L 14-59 [facility] AST [Catalytic activity/Vol] 21 U/L 15-37 [facility] Bilirubin [Mass/Vol] 0.6 mg/dL 0.2-1.0 [facility] Bilirubin.direct [Mass/Vol] 0.1 mg/dL 0.0-0.2 [facility] Cholesterol [Mass/Vol] 144 mg/dL <=200 [facility] Cholesterol in HDL [Mass/Vol] 56 mg/dL 40-60 [facility] Comment on above: > or =60 mg/dl - LOW CARDIOVASCULAR RISK<40 mg/dl - HIGH CARDIOVASCULAR RISK Protein [Mass/Vol] 6.5 g/dL 6.4-8.2 [facility] Triglyceride [Mass/Vol] 62 mg/dL <=150 [facility] Serum or plasma albumin/glob ulin mass ratioon 11-19-2023 Albumin/Globulin [Mass ratio] 1.1 {ratio} [facility] Serum or plasma total choles terol/high density lipoprotein (HDL) cholesterol mass robyn 11-19-2023 Cholesterol.total/Ch olesterol in HDL [Mass ratio] 2.6 {ratio} [facility] Comment on above: 3.3 - 4.4 LOW RISK4. 4 - 7.1 AVERAGE RISK7.1 - 11.0 MODERATE RISK>11.0 HIGH RISK Office Visiton 08-07-2023 Follow-up visit [id number] Kell Snow 1960 F Date Provider Department Center 08/07/2023 BRANDT BENJAMIN SANJANA [facility] Family History Problem Relation Age of Onset Other Mother Coronary artery disease Sister Peripheral vascular disease Sister Coronary artery disease Brother Heart failure Brother Atrial fibrillation Brother Family Status - Relation Status Age at Mother Sister Brother Level of Service:96681 CO OFFICE/OUTPATIENT ESTABLISHED MOD MDM 30 MIN Normal [facility] MR SHOULDER LEFT WO IV CONTR Darío [...] Basophils (Bld) [#/Vol] 0.1 10 3/uL 0.0-0.1 [facility] Basophils/100 WBC Auto (Bld) on 05-31-2023 Basophils/100 WBC (Bld) 2.1 % 0.2-2.0 [facility] Cholesterol in LDL Calc [Mas s/Vol]on 05-31-2023 Cholesterol in LDL [Mass/Vol] 204.0 mg/dL [facility] Comment on above: <100 mg/dl [id number] 0-129 mg/dl NEAR OR ABOVE SYUXHFL767-156 mg/dl BORDERLINE EPLE024-689 mg/dl HIGH>190 mg/dl VERY HIGH Cholesterol in VLDL Calc [Ma ss/Vol]on 05-31-2023 Cholesterol in VLDL [Mass/Vol] 13.2 mg/dL [facility] Eosinophils/100 WBC Auto (Bl d)on 05-31-2023 Eosinophils/100 WBC (Bld) 5.2 % 0.9-7.0 [facility] Erythrocyte distribution wid th Auto (RBC) [Ratio]on 05-31-2023 Erythrocyte distribution width (RBC) [Ratio] 12.9 % 11.0-15.0 [facility] Estimated glomerular filtrat ion rate (GFR) non- Americanon 05-31-2023 GFR/1.73 sq M.predicted among non-blacks MDRD (S/P/Bld) [Vol rate/Area] mL/min/{1.73_m2} >=60 [facility] Globulin Calc (S) [Mass/Vol] on 05-31-2023 Globulin (S) [Mass/Vol] 3.6 g/dL [facility] Hematocrit Auto (Bld) [Volum e fraction]on 03-22-2024 Hematocrit (Bld) [Volume fraction] 44.0 % 36.0-48.0 [facility] Hemoglobin [Mass/volume] in Bloodon 05-31-2023 Hemoglobin (Bld) [Mass/Vol] 14.4 g/dL 12.0-16.0 [facility] Laboratory - Chemistry and C hemistry - challengeon 05-31-2023 Albumin [Mass/Vol] 3.4 g/dL 3.4-5.0 [facility] ALP [Catalytic activity/Vol] 78 U/L 46-116 [facility] ALT [Catalytic activity/Vol] 51 U/L 14-59 [facility] AST [Catalytic activity/Vol] 28 U/L 15-37 [facility] Bilirubin [Mass/Vol] 0.5 mg/dL 0.2-1.0 [facility] Calcium [Mass/Vol] 9.1 mg/dL 8.5-10.1 [facility] Chloride [Moles/Vol] 102 mmol/L 98-107 [facility] Cholesterol [Mass/Vol] 277 mg/dL <=200 [facility] Cholesterol in HDL [Mass/Vol] 60 mg/dL 40-60 [facility] Comment on above: > or =60 mg/dl - LOW CARDIOVASCULAR RISK<40 mg/dl - HIGH CARDIOVASCULAR RISK CO2 [Moles/Vol] 29.1 mmol/L 21.0-32.0 [facility] Creatinine [Mass/Vol] 0.76 mg/dL 0.55-1.02 [facility] GFR/1.73 sq M.predicted MDRD (S/P/Bld) [Vol rate/Area] mL/min/{1.73_m2} >=60 [facility] Glucose [Mass/Vol] 102 mg/dL 74-106 [facility] Potassium [Moles/Vol] 3.8 mmol/L 3.5-5.1 [facility] Protein [Mass/Vol] 7.0 g/dL 6.4-8.2 [facility] Sodium [Moles/Vol] 141 mmol/L 136-145 [facility] Triglyceride [Mass/Vol] 66 mg/dL <=150 [facility] Urea nitrogen [Mass/Vol] 21.0 mg/dL 7.0-18.0 [facility] Urea nitrogen/Creatinine [Mass ratio] 27.6 mg/mg [facility] Laboratory - Hematology and Cell countson 05-31-2023 Immature granulocytes/100 WBC (Bld) 0.2 % 0.0-0.5 [facility] Leukocytes [#/volume] correc johanna for nucleated erythrocytes in Blood by Automated counon 05-31-2023 WBC corrected for nucl RBC Auto (Bld) [#/Vol] 5.6 10 3/uL 4.0-11.0 [facility] Lymphocytes Auto (Bld) [#/Vo l]on 05-31-2023 Lymphocytes (Bld) [#/Vol] 1.7 10 3/uL 1.2-3.8 [facility] Lymphocytes/100 WBC Auto (Bl d)on 05-31-2023 Lymphocytes/100 WBC (Bld) 31.0 % 20.5-60.0 [facility] MCH Auto (RBC) [Entitic mass ]on 05-31-2023 MCH (RBC) [Entitic mass] 28.8 pg 26.7-34.0 [facility] MCHC Auto (RBC) [Mass/Vol]on 05-31-2023 MCHC (RBC) [Mass/Vol] 32.7 g/dL 29.9-35.2 [facility] MCV Auto (RBC) [Entitic vol] on 05-31-2023 MCV (RBC) [Entitic vol] 88.0 fL 81.0-99.0 [facility] Monocytes Auto (Bld) [#/Vol] on 05-31-2023 Monocytes (Bld) [#/Vol] 0.8 10 3/uL 0.3-0.8 [facility] Monocytes/100 WBC Auto (Bld) on 05-31-2023 Monocytes/100 WBC (Bld) 13.4 % 1.7-12.0 [facility] Neutrophils Auto (Bld) [#/Vo l]on 05-31-2023 Neutrophils (Bld) [#/Vol] 2.7 10 3/uL 1.4-6.5 [facility] Neutrophils/100 WBC Auto (Bl d)on 05-31-2023 Neutrophils/100 WBC (Bld) 48.1 % 43.0-75.0 [facility] No Panel Informationon 05-30 Eosinophils # (Auto) 0.3 10 3/uL 0.0-0.7 [facility] Immature Granulocyte # (Auto) 0.01 10 3/uL 0.00-0.03 [facility] Platelet mean volume Auto (B ld) [Entitic vol]on 05-31-2023 Platelet mean volume (Bld) [Entitic vol] 10.7 fL 9.5-13.5 [facility] Platelets Auto (Bld) [#/Vol] on 05-31-2023 Platelets (Bld) [#/Vol] 305 10 3/uL 150-450 [facility] RBC Auto (Bld) [#/Vol]on RBC (Bld) [#/Vol] 5.00 10 6/uL 4.20-5.40 [facility] Serum or plasma albumin/glob ulin mass ratioon 05-31-2023 Albumin/Globulin [Mass ratio] 0.9 {ratio} [facility] Serum or plasma anion gap de terminationon 05-31-2023 Anion gap [Moles/Vol] 13.7 mmol/L [facility] Serum or plasma total choles terol/high density lipoprotein (HDL) cholesterol mass robyn 05-31-2023 Cholesterol.total/Ch olesterol in HDL [Mass ratio] 4.6 {ratio} [facility] Comment on above: 3.3 - 4.4 LOW RISK4. 4 - 7.1 AVERAGE RISK7.1 - 11.0 MODERATE RISK>11.0 HIGH RISK Reminderson 09-25-2022 Reminders - From: Yolanda Mauro To: HELIO Whitfield; Sent: 12/07/2021 15:46:40 EDT Show up: 04/08/2022 14:46:00 EST Subject: JAYDA prior to 6 mos Due Date/Time: 05/08/2022 14:46:00 EST Reminder Message Patient needs JAYDA prior to 6 month appointment. wants JAYDA done at [facility]. orders faxed to [facility] patients appt was rescheduled to 08/20/22. pt aware to have testing done prior. Patient cancelled august appointment and has not rescheduled. diagnosis is not trackable Normal [facility] CT LUNG CANCER SCREENINGon 0 [...] by: HAIR DIETZ Date: 2022-06-30 14:46 Normal [facility] NM STRESS/REST MULTIon 06-21 NM STRESS/REST MULTI Patient: SUMMER SNOW Exam Date: 06/21/2022 : 1960 Gender:F Ordering : DR BRANDT MCNAMARA M.D. Admission #: [id number] Family : DR SON IRIZARRY D.O. Order #: [id number] CLICK HERE TO VIEW EXAM RADIOLOGY REPORT [...] Dietz MD on 06/25/2022 at 09:33 Normal [facility] Lab Reportson 06-01-2022 Lab Reports [id number]#[id number]:127 Normal [facility] ECHOCARDIO M/2D COMPLETEon 0 05-31-2022 ECHOCARDIO M/2D COMPLETE Patient: PAM SNOW Exam Date: 05/31/2022 : 1960 Gender:F Ordering : DR BRANDT MCNAMARA M.D. Admission #: [id number] Family : Order #: [id number] CLICK HERE TO VIEW EXAM ECHOCARDIOGRAM REPORT [...] Brandt Mcnamara M.D. on 05/31/2022 at 22:12 [facility] Provider Letter [id number] Provider Letter [facility] May 29, 2022 PAM SNOW [address] [place] [address] PAM SNOW 1960 Dear Pam Snow , We have been trying to reach you with no success. It is important that you return our call upon receiving this letter. Also, at the time of your call, please provide us with your current information. Thank you for your prompt attention to this matter. Sincerely, [facility] [place], [address] [facility] Provider Letter [facility] May 29, 2022 PAM SNOW [address] [place] [address] PAM SNOW 1960 Dear Pam Snow , We have been trying to reach you with no success. It is important that you return our call regarding your _ upon receiving this letter. Also, at the time of your call, please provide us with your current information. Thank you for your prompt attention to this matter. Sincerely, [facility] [address] [facility] [place], [address] Normal [facility] Lab Reportson 05-22-2022 Lab Reports [id number]:12 7 Normal [facility] Lab Reports [id number]:12 7 Normal [facility] PROF CHEM 8 (BAS METB)on Anion gap [Moles/Vol] 11.0 mmol/L Normal [facility] Comment on above: Performed By: #### C KATYA, NA, CA, URIC, BUN, K, CO2, CL #### [facility] [address] [address] [address] Cesar Francis Calcium [Mass/Vol] 9.4 mg/dL Normal 8.5-10.1 [facility] Comment on above: Performed By: #### C KATYA, NA, CA, URIC, BUN, K, CO2, CL #### [facility] [address] [address] [address] Cesar Francis Chloride [Moles/Vol] 101 mmol/L Normal 98-107 [facility] Comment on above: Performed By: #### C KATYA, NA, CA, URIC, BUN, K, CO2, CL #### [facility] [address] [address] [address] Cesar Francis CO2 [Moles/Vol] 28.3 mmol/L Normal 21.0-32.0 [facility] Comment on above: Performed By: #### C KATYA, NA, CA, URIC, BUN, K, CO2, CL #### [facility] [address] [address] [address] Cesar Francis Creatinine [Mass/Vol] 0.72 mg/dL Normal 0.55-1.02 [facility] Comment on above: Performed By: #### C KATYA, NA, CA, URIC, BUN, K, CO2, CL #### [facility] [address] [address] [address] Cesar Francis EGFR-AF CZECH >60 Normal >=60 [facility] Comment on above: Performed By: #### C KATYA, NA, CA, URIC, BUN, K, CO2, CL #### [facility] [address] [place] [address] Dr. Cesar Francis EGFR-NON AF CZECH >60 Normal >=60 [facility] Comment on above: Performed By: #### C KATYA, NA, CA, URIC, BUN, K, CO2, CL #### [facility] [address] [place] [address] Dr. Cesar Francis Glucose [Mass/Vol] 92 mg/dL Normal 74-106 [facility] Comment on above: Performed By: #### C KATYA, NA, CA, URIC, BUN, K, CO2, CL #### [facility] [address] [place] [address] Dr. Cesar Francis Potassium [Moles/Vol] 3.3 mmol/L Critically low 3.5-5.1 [facility] Comment on above: Performed By: #### C KATYA, NA, CA, URIC, BUN, K, CO2, CL #### [facility] [address] [place] [address] Dr. Cesar Francis Sodium [Moles/Vol] 137 mmol/L Normal 136-145 [facility] Comment on above: Performed By: #### C KATYA, NA, CA, URIC, BUN, K, CO2, CL #### [facility] [address] [place] [address] Dr. Cesar Francis Urea nitrogen [Mass/Vol] 14.0 mg/dL Normal 7.0-18.0 [facility] Comment on above: Performed By: #### C KATYA, NA, CA, URIC, BUN, K, CO2, CL #### [facility] [address] [place] [address] Dr. Cesar Francis Urea nitrogen/Creatinine [Mass ratio] 19.4 mg/mg Normal [facility] Comment on above: Performed By: #### C KATYA, NA, CA, URIC, BUN, K, CO2, CL #### [facility] [address] [place] [address] Dr. Cesar Francis Reminderson 05-22-2022 Reminders - From: Amisha Scott To: HELIO - Recallmonet Whitfield; Sent: 12/07/2021 15:54:24 EDT Show up: 04/20/2022 15:53:00 EST Subject: JAYDA needed May 2022 Due Date/Time: 06/07/2022 15:53:00 EDT Reminder/Recall This pt needs Renal US prior to 06/07/[address] Whitfield in [place] - pt uses [facility]-pls verify this with pt called patient to verify if she would like orders sent to [facility], left msg on voicemail for her to call office. Patient called back I will send order over to [facility]. Normal [facility] PTH INTACTon 05-19-2022 PTH, Intact 22 pg/mL Normal 15-65 [facility] Comment on above: Performed By: #### C KATYA, NA, CA, URIC, BUN, K, CO2, CL #### [facility] [address] [place] [address] Dr. Cesar Francis BUNon 05-18-2022 Urea nitrogen [Mass/Vol] 16.0 mg/dL Normal 7.0-18.0 [facility] Comment on above: Performed By: #### C KATYA, NA, CA, URIC, BUN, K, CO2, CL #### [facility] [address] [address] [address] Cesar Francis CALCIUMon 05-18-2022 Calcium [Mass/Vol] 9.2 mg/dL Normal 8.5-10.1 [facility] Comment on above: Performed By: #### C KATYA, NA, CA, URIC, BUN, K, CO2, CL #### [facility] [address] [address] [address] Cesar Francis CHLORIDEon 05-18-2022 Chloride [Moles/Vol] 104 mmol/L Normal 98-107 [facility] Comment on above: Performed By: #### C KATYA, NA, CA, URIC, BUN, K, CO2, CL #### [facility] [address] [address] [address] Cesar Francis CO2on 05-18-2022 CO2 [Moles/Vol] 28.4 mmol/L Normal 21.0-32.0 [facility] Comment on above: Performed By: #### C KATYA, NA, CA, URIC, BUN, K, CO2, CL #### [facility] [address] [address] [address] Cesar Francis CREATININEon 05-18-2022 Creatinine [Mass/Vol] 0.63 mg/dL Normal 0.55-1.02 [facility] Comment on above: Performed By: #### C KAYTA, NA, CA, URIC, BUN, K, CO2, CL #### [facility] [address] [address] [address] Cesar Francis EGFR-AF CZECH >60 Normal >=60 [facility] Comment on above: Performed By: #### C KATYA, NA, CA, URIC, BUN, K, CO2, CL #### [facility] [address] [address] [address] Cesar Francis EGFR-NON AF CZECH >60 Normal >=60 [facility] Comment on above: Performed By: #### C KATYA, NA, CA, URIC, BUN, K, CO2, CL #### [facility] [address] [place] [address] Dr. Cesar Francis MG MAMM SCREEN 3D ISAIAH CADon 05-18-2022 MG MAMM SCREEN 3D ISAIAH CAD Patient: PAM SNOW Exam Date: 05/18/2022 : 1960 Gender:F Ordering : DR DALE WILSON . Admission #: [id number] Family : RACHELLE WHITFIELD . Order #: [id number] CLICK HERE TO VIEW EXAM RADIOLOGY REPORT [...] lung cancer at age 54. LOCATION: [facility] BREAST COMPOSITION: Almost entirely fatty. FINDINGS: [...] Dietz MD on 05/18/2022 at 09:16 Normal [facility] NAon 05-18-2022 Sodium [Moles/Vol] 140 mmol/L Normal 136-145 [facility] Comment on above: Performed By: #### C KATYA, NA, CA, URIC, BUN, K, CO2, CL #### [facility] [address] [address] [address] Cesar Francis POTASSIUMon 05-18-2022 Potassium [Moles/Vol] 2.7 mmol/L Critically low 3.5-5.1 [facility] Comment on above: Performed By: #### C KATYA, NA, CA, URIC, BUN, K, CO2, CL #### [facility] [address] [address] [address] Cesar Francis URIC ACID SERUMon 05-18-2022 Urate [Mass/Vol] 6.0 mg/dL Normal 2.6-6.0 [facility] Comment on above: Performed By: #### C KATYA, NA, CA, URIC, BUN, K, CO2, CL #### [facility] [address] [address] [address] Cesar Francis US KIDNEYSon 05-18-2022 US KIDNEYS EXAMINATION: US KIDMargaux EYS HISTORY: Kidney stone COMPARISON: No relevant [...] by: LIZET MALCOLM Date: 2022-05-18 08:47 Normal [facility] Formson 04-17-2022 Forms [id number]:12 7 Normal [facility] Reminderson 04-17-2022 Reminders - From: Yolanda Mauro To: Cristiane Grier; Sent: 12/07/2021 15:51:13 EDT Show up: 04/08/2022 14:51:00 EST Subject: LithoLink Due Date/Time: 05/08/2022 14:51:00 EST Reminder Message Patient needs LithoLink mailed to her prior to 6 month appointment. [employer]olink order faxed 04/17/22 Normal [facility] XR CHEST 2 Von 04-17-2022 [...] by: CHERRI HAMILTON Date: 2022-04-17 17:56 Normal [facility] CBC AUTO DIFFon 02-09-2022 BASO # 0.1 103/ul Normal 0.0-0.1 [facility] Comment on above: Performed By: #### C KATYA, NA, CA, URIC, BUN, K, CO2, CL #### [facility] [address] [address] [address] Cesar Francis Basophils/100 WBC (Bld) 2.3 % Critically high 0.2-2.0 [facility] Comment on above: Performed By: #### C KATYA, NA, CA, URIC, BUN, K, CO2, CL #### [facility] [address] [place] [address] Dr. Cesar Francis EO # 0.3 103/ul Normal 0.0-0.7 [facility] Comment on above: Performed By: #### C KATYA, NA, CA, URIC, BUN, K, CO2, CL #### [facility] [address] [place] [address] Dr. Cesar Francis Eosinophils/100 WBC (Bld) 4.1 % Normal 0.9-7.0 [facility] Comment on above: Performed By: #### C KATYA, NA, CA, URIC, BUN, K, CO2, CL #### [facility] [address] [place] [address] Dr. Cesar Francis Erythrocyte distribution width (RBC) [Ratio] 12.8 % Normal 11.0-15.0 [facility] Comment on above: Performed By: #### C KATYA, NA, CA, URIC, BUN, K, CO2, CL #### [facility] [address] [place] [address] Dr. Cesar Francis Hematocrit (Bld) [Volume fraction] 45.4 % Normal 36.0-48.0 [facility] Comment on above: Performed By: #### C KATYA, NA, CA, URIC, BUN, K, CO2, CL #### [facility] [address] [place] [address] Dr. Cesar Francis Hemoglobin (Bld) [Mass/Vol] 15.6 g/dL Normal 12.0-16.0 [facility] Comment on above: Performed By: #### C KATYA, NA, CA, URIC, BUN, K, CO2, CL #### [facility] [address] [place] [address] Dr. Cesar Francis IG # 0.01 10e3/ul Normal 0.00-0.03 [facility] Comment on above: Performed By: #### C KATYA, NA, CA, URIC, BUN, K, CO2, CL #### [facility] [address] [place] [address] Dr. Cesar Francis IG % 0.2 % Normal 0.0-0.5 [facility] Comment on above: Performed By: #### C KATYA, NA, CA, URIC, BUN, K, CO2, CL #### [facility] [address] [place] [address] Dr. Cesar Francis LYMPH # 1.6 103/ul Normal 1.2-3.8 [facility] Comment on above: Performed By: #### C KATYA, NA, CA, URIC, BUN, K, CO2, CL #### [facility] [address] [place] [address] Dr. Cesar Francis Lymphocytes/100 WBC (Bld) 26.2 % Normal 20.5-60.0 [facility] Comment on above: Performed By: #### C KATYA, NA, CA, URIC, BUN, K, CO2, CL #### [facility] [address] [place] [address] Dr. Cesar Francis MANUAL DIFF REQ NO Normal [facility] Comment on above: Performed By: #### C KATYA, NA, CA, URIC, BUN, K, CO2, CL #### [facility] [address] [place] [address] Dr. Cesar Francis MCH (RBC) [Entitic mass] 28.6 pg Normal 26.7-34.0 [facility] Comment on above: Performed By: #### C KATYA, NA, CA, URIC, BUN, K, CO2, CL #### [facility] [address] [place] [address] Dr. Cesar Francis MCHC (RBC) [Mass/Vol] 34.4 g/dL Normal 29.9-35.2 [facility] Comment on above: Performed By: #### C KATYA, NA, CA, URIC, BUN, K, CO2, CL #### [facility] [address] [place] [address] Dr. Cesar Francis MCV (RBC) [Entitic vol] 83.3 fL Normal 81.0-99.0 [facility] Comment on above: Performed By: #### C KATYA, NA, CA, URIC, BUN, K, CO2, CL #### [facility] [address] [place] [address] Dr. Cesar Francis MONO # 0.8 103/ul Normal 0.3-0.8 [facility] Comment on above: Performed By: #### C KATYA, NA, CA, URIC, BUN, K, CO2, CL #### [facility] [address] [place] [address] Dr. Cesar Francis Monocytes/100 WBC (Bld) 12.5 % Critically high 1.7-12.0 [facility] Comment on above: Performed By: #### C KATYA, NA, CA, URIC, BUN, K, CO2, CL #### [facility] [address] [place] [address] Dr. Cesar Francis NEUT # 3.3 103/ul Normal 1.4-6.5 [facility] Comment on above: Performed By: #### C KATYA, NA, CA, URIC, BUN, K, CO2, CL #### [facility] [address] [place] [address] Dr. Cesar Francis Neutrophils/100 WBC (Bld) 54.7 % Normal 43.0-75.0 [facility] Comment on above: Performed By: #### C KATYA, NA, CA, URIC, BUN, K, CO2, CL #### [facility] [address] [place] [address] Dr. Cesar Francis Platelet mean volume (Bld) [Entitic vol] 10.6 fL Normal 9.5-13.5 [facility] Comment on above: Performed By: #### C KATYA, NA, CA, URIC, BUN, K, CO2, CL #### [facility] [address] [place] [address] Dr. Cesar Francis PLT 275 103/ul Normal 150-450 [facility] Comment on above: Performed By: #### C KATYA, NA, CA, URIC, BUN, K, CO2, CL #### [facility] [address] [place] [address] [address] Cesar Francis RBC 5.45 106/ul Critically high 4.20-5.40 [facility] Comment on above: Performed By: #### C KATYA, NA, CA, URIC, BUN, K, CO2, CL #### [facility] [address] [place] [address] Dr. Cesar Francis WBC 6.1 103/ul Normal 4.0-11.0 [facility] Comment on above: Performed By: #### C KATYA, NA, CA, URIC, BUN, K, CO2, CL #### [facility] [address] [place] [address] Dr. Cesar Francis LIPID PROFILEon 02-09-2022 CHOL-HDL RATIO NORM SEE BELOW Normal [facility] Comment on above: Result Comment: 3.3 - 4.4 LOW RISK 4.4 - 7.1 AVERAGE RISK 7.1 - 11.0 MODERATE RISK >11.0 HIGH RISK Performed By: #### C KATYA, NA, CA, URIC, BUN, K, CO2, CL #### [facility] [address] [place] [address] Dr. Cesar Francis Cholesterol [Mass/Vol] 241 mg/dL Critically high <=200 [facility] Comment on above: Performed By: #### C KATYA, NA, CA, URIC, BUN, K, CO2, CL #### [facility] [address] [place] [address] Dr. Cesar Francis Cholesterol in HDL [Mass/Vol] 66 mg/dL Critically high 40-60 [facility] Comment on above: Performed By: #### C KATYA, NA, CA, URIC, BUN, K, CO2, CL #### [facility] [address] [place] [address] Dr. Cesar Francis Cholesterol in LDL [Mass/Vol] 156.0 mg/dL Normal [facility] Comment on above: Performed By: #### C KATYA, NA, CA, URIC, BUN, K, CO2, CL #### [facility] [address] [address] [address] Cesar Francis Cholesterol.total/Ch olesterol in HDL [Mass ratio] 3.7 {ratio} Normal [facility] Comment on above: Performed By: #### C KATYA, NA, CA, URIC, BUN, K, CO2, CL #### [facility] [address] [address] [address] Cesar Francis HDL NORMAL > or = 60 mg/dl - LO W CARDIOVASCULAR RISK <40 mg/dl - HIGH CARDIOVASCULAR RISK Normal [facility] Comment on above: Performed By: #### C KATYA, NA, CA, URIC, BUN, K, CO2, CL #### [facility] [address] [address] [address] Cesar Francis LDL CALC NORMAL SEE BELOW Normal [facility] Comment on above: Result Comment: <100 mg/dl OPTIMAL 100 - 129 mg/dl NEAR OR ABOVE OPTIMAL 130 - 159 mg/dl BORDERLINE HIGH 160 - 189 mg/dl HIGH >190 mg/dl VERY HIGH Performed By: #### C KATYA, NA, CA, URIC, BUN, K, CO2, CL #### [facility] [address] [address] [address] Cesar Francis Triglyceride [Mass/Vol] 95 mg/dL Normal <=150 [facility] Comment on above: Performed By: #### C KATYA, NA, CA, URIC, BUN, K, CO2, CL #### [facility] [address] [address] [address] Cesar Francis VLDL CALC 19.0 mg/dL Normal [facility] Comment on above: Performed By: #### C KATYA, NA, CA, URIC, BUN, K, CO2, CL #### [facility] [address] [address] [address] Cesar Francis PROF 14(COMP METB)on 022 Albumin [Mass/Vol] 3.6 g/dL Normal 3.4-5.0 [facility] Comment on above: Performed By: #### C KATYA, NA, CA, URIC, BUN, K, CO2, CL #### [facility] [address] [place] [address] Dr. Cesar Francis Albumin/Globulin [Mass ratio] 1.0 {ratio} Normal [facility] Comment on above: Performed By: #### C KATYA, NA, CA, URIC, BUN, K, CO2, CL #### [facility] [address] [place] [address] Dr. Cesar Francis ALP [Catalytic activity/Vol] 65 U/L Normal 46-116 [facility] Comment on above: Performed By: #### C KATYA, NA, CA, URIC, BUN, K, CO2, CL #### [facility] [address] [place] [address] Dr. Cesar Francis ALT [Catalytic activity/Vol] 31 U/L Normal 14-59 [facility] Comment on above: Performed By: #### C KATYA, NA, CA, URIC, BUN, K, CO2, CL #### [facility] [address] [place] [address] Dr. Cesar Francis Anion gap [Moles/Vol] 13.2 mmol/L Normal [facility] Comment on above: Performed By: #### C KATYA, NA, CA, URIC, BUN, K, CO2, CL #### [facility] [address] [place] [address] Dr. Cesar Francis AST [Catalytic activity/Vol] 21 U/L Normal 15-37 [facility] Comment on above: Performed By: #### C KATYA, NA, CA, URIC, BUN, K, CO2, CL #### [facility] [address] [place] [address] Dr. Cesar Francis Bilirubin [Mass/Vol] 0.5 mg/dL Normal 0.2-1.0 [facility] Comment on above: Performed By: #### C KATYA, NA, CA, URIC, BUN, K, CO2, CL #### [facility] [address] [place] [address] Dr. Cesar Francis Calcium [Mass/Vol] 9.0 mg/dL Normal 8.5-10.1 [facility] Comment on above: Performed By: #### C KATYA, NA, CA, URIC, BUN, K, CO2, CL #### [facility] [address] [address] [address] Cesar Francis Chloride [Moles/Vol] 101 mmol/L Normal 98-107 [facility] Comment on above: Performed By: #### C KATYA, NA, CA, URIC, BUN, K, CO2, CL #### [facility] [address] [address] [address] Cesar Francis CO2 [Moles/Vol] 29.5 mmol/L Normal 21.0-32.0 [facility] Comment on above: Performed By: #### C KATYA, NA, CA, URIC, BUN, K, CO2, CL #### [facility] [address] [place] [address] Dr. Cesar Francis Creatinine [Mass/Vol] 0.71 mg/dL Normal 0.55-1.02 [facility] Comment on above: Performed By: #### C KATYA, NA, CA, URIC, BUN, K, CO2, CL #### [facility] [address] [place] [address] Dr. Cesar Francis EGFR-AF CZECH >60 Normal >=60 [facility] Comment on above: Performed By: #### C KATYA, NA, CA, URIC, BUN, K, CO2, CL #### [facility] [address] [place] [address] Dr. Cesar Francis EGFR-NON AF CZECH >60 Normal >=60 [facility] Comment on above: Performed By: #### C KATYA, NA, CA, URIC, BUN, K, CO2, CL #### [facility] [address] [place] [address] Dr. Cesar Francis Globulin (S) [Mass/Vol] 3.5 g/dL Normal [facility] Comment on above: Performed By: #### C KATYA, NA, CA, URIC, BUN, K, CO2, CL #### [facility] [address] [address] [address] Cesar Francis Glucose [Mass/Vol] 102 mg/dL Normal 74-106 [facility] Comment on above: Performed By: #### C KATYA, NA, CA, URIC, BUN, K, CO2, CL #### [facility] [address] [address] [address] Cesar Francis Potassium [Moles/Vol] 3.7 mmol/L Normal 3.5-5.1 [facility] Comment on above: Performed By: #### C KATYA, NA, CA, URIC, BUN, K, CO2, CL #### [facility] [address] [address] [address] Cesar Francis Protein [Mass/Vol] 7.1 g/dL Normal 6.4-8.2 [facility] Comment on above: Performed By: #### C KATYA, NA, CA, URIC, BUN, K, CO2, CL #### [facility] [address] [place] [address] Dr. Cesar Francis Sodium [Moles/Vol] 140 mmol/L Normal 136-145 [facility] Comment on above: Performed By: #### C KATYA, NA, CA, URIC, BUN, K, CO2, CL #### [facility] [address] [address] [address] Cesar Francis Urea nitrogen [Mass/Vol] 28.0 mg/dL Critically high 7.0-18.0 [facility] Comment on above: Performed By: #### C KATYA, NA, CA, URIC, BUN, K, CO2, CL #### [facility] [address] [place] [address] Dr. Cesar Francis Urea nitrogen/Creatinine [Mass ratio] 39.4 mg/mg Normal [facility] Comment on above: Performed By: #### C KATYA, NA, CA, URIC, BUN, K, CO2, CL #### [facility] [address] [place] [address] Dr. Cesar Francis Screenson 12-08-2021 Screens [id number]#[id number]:12 7 Normal [facility] Ambulatory Visit Summaryon 0 12-07-2021 Ambulatory Visit Summary PAM SNOW :1960 Visit Date:12/07/2021 Ambulatory Visit Instructions Your Diagnosis Kidney stone Tests Performed Urnls Dip Stick Auto w/o Microscopy POC 10866 XR Abdomen 1 View -- Results Pending [...] Rachelle Whitfield MD Where: [facility] [place] Normal [facility] Patient Educationon 12-08-19 Patient Education Urology Kidney [...] these instructions at home: Medicines ? Take [id number] and prescription medicines only as told by [...] Foundation ([facility]): www.kidney.org ? [facility] ([facility] www.urologyhealth.org Contact a doctor if: ? You [...] 08/13/2008 Document Revised: 07/14/2019 Document Reviewed: 07/14/2019 [employer] Patient Education ? 2019 [employer]. [facility] Urology Office/Clinic Noteon 12-07-2021 Urology Office/Clinic [...] Calculus of kidney) Previous patient of Dr. Guardado'monet with history of kidney stones S/P ESWL [...] mos KUB, JAYDA Patient Education Kidney Stones, [id number] I, Yolanda Mauro, personally scribed for Dr. [...] (07/16/2011), Cysto (more content not included)... Normal [facility] Comment on above: Result Comment: Elec tronically Signed By: Rachelle Whitfield MD\.br\Date and Time Signed: 12/07/21 16:44 EDT\.br\Electronically Co-Signed By: Yolanda Mauro\.br\Date and Time Co-Signed: 12/07/21 15:46 EDT Lab Reportson 10-18-2021 Lab Reports [id number]#1.00CD:12 7 Normal [facility] Lab Reportson 10-11-2021 Lab Reports [id number]:12 7 Normal [facility] Lab Reports [id number]:12 7 [facility] PTH INTACTon 10-10-2021 PTH, Intact 13 pg/mL Critically low 15-65 [facility] Comment on above: Performed By: #### C KATYA, NA, CA, URIC, BUN, K, CO2, CL #### [facility] [address] [place] [address] Dr. Cesar Francis BUNon 10-09-2021 Urea nitrogen [Mass/Vol] 11.0 mg/dL Normal 7.0-18.0 [facility] Comment on above: Performed By: #### C KATYA, NA, CA, URIC, BUN, K, CO2, CL #### [facility] [address] [place] [address] Dr. Cesar Francis CALCIUMon 10-09-2021 Calcium [Mass/Vol] 9.2 mg/dL Normal 8.5-10.1 [facility] Comment on above: Performed By: #### C KATYA, NA, CA, URIC, BUN, K, CO2, CL #### [facility] [address] [place] [address] Dr. Cesar Francis CHLORIDEon 10-09-2021 Chloride [Moles/Vol] 104 mmol/L Normal 98-107 [facility] Comment on above: Performed By: #### C KATYA, NA, CA, URIC, BUN, K, CO2, CL #### [facility] [address] [place] [address] Dr. Cesar Francis CO2on 10-09-2021 CO2 [Moles/Vol] 28.5 mmol/L Normal 21.0-32.0 [facility] Comment on above: Performed By: #### C KATYA, NA, CA, URIC, BUN, K, CO2, CL #### [facility] [address] [place] [address] Dr. Cesar Francis CREATININEon 10-09-2021 Creatinine [Mass/Vol] 0.83 mg/dL Normal 0.55-1.02 [facility] Comment on above: Performed By: #### C KATYA, NA, CA, URIC, BUN, K, CO2, CL #### [facility] [address] [place] [address] Dr. Cesar Francis EGFR-AF CZECH >60 Normal >=60 [facility] Comment on above: Performed By: #### C KATYA, NA, CA, URIC, BUN, K, CO2, CL #### [facility] [address] [place] [address] Dr. Cesar Francis EGFR-NON AF CZECH >60 Normal >=60 [facility] Comment on above: Performed By: #### C KATYA, NA, CA, URIC, BUN, K, CO2, CL #### [facility] [address] [place] [address] Dr. Cesar Francis NAon 10-09-2021 Sodium [Moles/Vol] 143 mmol/L Normal 136-145 [facility] Comment on above: Performed By: #### C KATYA, NA, CA, URIC, BUN, K, CO2, CL #### [facility] [address] [place] [address] Dr. Cesar Francis PHOSPHORUSon 10-09-2021 Phosphate [Mass/Vol] 2.7 mg/dL Normal 2.6-4.7 [facility] Comment on above: Performed By: #### C KATYA, NA, CA, URIC, BUN, K, CO2, CL #### [facility] [address] [place] [address] Dr. Cesar Francis URIC ACID SERUMon 10-09-2021 Urate [Mass/Vol] 5.8 mg/dL Normal 2.6-6.0 [facility] Comment on above: Performed By: #### C KATYA, NA, CA, URIC, BUN, K, CO2, CL #### [facility] [address] [place], [place] [address] Dr. Cesar Francis PROTIMEon 05-04-2017 INR Coag RelTime (PPP) 1.04 {INR} Normal 0.00-1.20 [facility] Comment on above: Order Comment[facility]: NONE SPECIFIED Result Comment: Troy mmended therapeutic range is an INR of 2.0-3.0 exceptfor prevention of recurrent acute ME and mechanicalprosthetic heart valve where an INR of 2.5-3.5 isrecommended. Performed By: #### L 300.54726 ####Test performed at: [place] [address] PT SEC 11.0 seconds Normal 9.7-11.5 [facility] Comment on above: Order Comment: CONSE RVATIONList patient's anticoagulants for PT: NONE SPECIFIED Performed By: #### L 300.11002 ####Test performed at: [place] [address] CARDIAC CATHETERIZATIONon CARDIAC CATHETERIZATION PATIENT NAME: ANNELISE SNOW#: [id number]: ANNELISE SNOW#: [id number] OF PROCEDURE: 05/03/2017CARDIAC CATHHISTORY OF PRESENT ILLNESS: [...] was accessedwith a multipurpose needle and a 6-Algerian sheath inserted. Selective coronaryarteriography was performed using 6-Algerian JL4 and 6-Algerian JR4 catheters.Left ventriculography was performed using a 6-Algerian angled pigtail catheter.At the end of the [...] groove. The rest of the vessel [facility]St. [facility] NAME: BEKA SNOW [facility] REC: [id number] [facility] ACCOUNT NUM: [id number]/BED: [place] [id number] : [id number] [place] [address] ATTENDING PHY: Candice Torres MDCARDIAC CATHETERIZATIONPATIENT NAME: ELDON SNOWR#: [id number] contain any significant disease.LEFT VENTRICULOGRAM: The left ventricular injection reveals a normal size leftventricle with normal contractility and normal ejection fraction. There is noangiographic mitral regurgitation.FINAL DIAGNOSIS:1. CAD-luminal irregularities, left main trunk-patent stent in proximal LAD-60-70% mid point. Posterior descending ncivcudwzo-43-30% mid rightcoronary artery.RECOMMENDATION: The circumflex stent will [...] at anappropriate time on the floor. MICHAEL MOREIRA/SEAN/[id number] 25D: 05/03/2017 13:24:11 E/S: Candice Torres MD05/07/17 0850Signature on [facility] PATIENT NAME: BEKA SNOW [facility] REC: [id number] [facility] ACCOUNT NUM: [id number]: [place] [id number] : [id number] [place] [address] ATTENDING PHY: Candice Torres MDCARDIAC CATHETERIZATION Normal [facility] CBC W/DIFFon 05-03-2017 BASO ABS 0.1 K/uL Normal 0.0-0.2 [facility] Comment on above: Order Comment: CONSE RVATION Performed By: #### L 200.84451 ####Test performed at: [address] [address] Basophils/100 WBC Auto (Bld) 1.8 % Normal [facility] Comment on above: Order Comment: CONSE RVATION Performed By: #### L 200.14095 ####Test performed at: [address] [address] EOS ABS 0.2 K/uL Normal 0.0-0.5 [facility] Comment on above: Order Comment: CONSE RVATION Performed By: #### L 200.20924 ####Test performed at: [address] [address] Eosinophils/100 leukocytes 2.6 % Normal [facility] Comment on above: Order Comment: CONSE RVATION Performed By: #### L 200.74058 ####Test performed at: [address] [address] Erythrocyte distribution width Auto Ratio (RBC) 13.7 % Normal 11.5-14.5 [facility] Comment on above: Order Comment: CONSE RVATION Performed By: #### L 200.74610 ####Test performed at: [place] [address] Erythrocytes (RBC) 5.06 10*6/uL Normal 3.5-5.5 [facility] Comment on above: Order Comment: CONSE RVATION Performed By: #### L 200.01188 ####Test performed at: [place] [address] Erythrocytes (RBC) 0.000 10*6/uL Normal 0-0.012 [facility] Comment on above: Order Comment: CONSE RVATION Performed By: #### L 200.46930 ####Test performed at: [place] [address] Hematocrit (HCT) 42.6 % Normal 36.0-48.0 [facility] Comment on above: Order Comment: CONSE RVATION Performed By: #### L 200.11976 ####Test performed at: [place] [address] Hemoglobin mass conc (Bld) 14.1 g/dL Normal 12.0-15.0 [facility] Comment on above: Order Comment: CONSE RVATION Performed By: #### L 200.49687 ####Test performed at: [place] [address] IG % 0.3 % Normal [facility] Comment on above: Order Comment: CONSE RVATION Performed By: #### L 200.23211 ####Test performed at: [place] [address] IG ABS 0.02 K/uL Normal 0-0.05 [facility] Comment on above: Order Comment: CONSE RVATION Performed By: #### L 200.49150 ####Test performed at: [address] [address] Lymphocytes 1.5 10*3/uL Normal 1.2-3.5 [facility] Comment on above: Order Comment: CONSE RVATION Performed By: #### L 200.30359 ####Test performed at: [address] [address] Lymphocytes/100 leukocytes 20.2 % Normal [facility] Comment on above: Order Comment: CONSE RVATION Performed By: #### L 200.65781 ####Test performed at: [address] [address] MCH 27.9 pg Normal 25.4-34.6 [facility] Comment on above: Order Comment: CONSE RVATION Performed By: #### L 200.51720 ####Test performed at: [address] [address] MCHC mass conc (RBC) 33.1 g/dL Normal 31.5-36.5 [facility] Comment on above: Order Comment: CONSE RVATION Performed By: #### L 200.22335 ####Test performed at: [address] [address] MCV 84.2 fL Normal 79.0-98.0 [facility] Comment on above: Order Comment: CONSE RVATION Performed By: #### L 200.27714 ####Test performed at: [address] [address] MONO ABS 0.7 K/uL Normal 0.0-1.0 [facility] Comment on above: Order Comment: CONSE RVATION Performed By: #### L 200.47088 ####Test performed at: [address] [address] Monocytes/100 leukocytes 9.4 % Normal [facility] Comment on above: Order Comment: CONSE RVATION Performed By: #### L 200.38711 ####Test performed at: [address] [address] Neutrophils 4.8 10*3/uL Normal 1.4-6.6 [facility] Comment on above: Order Comment: CONSE RVATION Performed By: #### L 200.69206 ####Test performed at: [address] [address] Neutrophils/100 WBC Auto (Bld) 65.7 % Normal [facility] Comment on above: Order Comment: CONSE RVATION Performed By: #### L 200.32050 ####Test performed at: [address] [address] NRBC % 0.0 /100 WBC Normal 0-0.2 [facility] Comment on above: Order Comment: CONSE RVATION Performed By: #### L 200.03946 ####Test performed at: [address] [address] Platelet mean volume (PMV) 11.9 fL Normal 8.7-12.4 [facility] Comment on above: Order Comment: CONSE RVATION Performed By: #### L 200.03874 ####Test performed at: [address] [address] Platelets 207 10*3/uL Normal 140-440 [facility] Comment on above: Order Comment: CONSE RVATION Performed By: #### L 200.32120 ####Test performed at: [address] [address] WBC (Leukocytes) 7.2 10*3/uL Normal 3.9-11.0 [facility] Comment on above: Order Comment: CONSE RVATION Performed By: #### L 200.28277 ####Test performed [place]: [place] [address] COMP META PANELon 05-03-2017 Alanine aminotransferase (ALT) 17 U/L Normal 13-61 [facility] Comment on above: Order Comment: CONSE RVATIONIs patient fasting? UNKNOWN Performed By: #### L 500.28277, L500.33507, L500.25528, L500.74996 ####Test performed at: [place] [address] Albumin 3.4 g/dL Normal 3.4-5.0 [facility] Comment on above: Order Comment: CONSE RVATIONIs patient fasting? UNKNOWN Performed By: #### L 500.33215, L500.84246, L500.88779, L500.84118 ####Test performed at: [place] [address] ALK PHOS TOTAL 96 U/L Normal 45-117 [facility] Comment on above: Order Comment: CONSE RVATIONIs patient fasting? UNKNOWN Performed By: #### L 500.16136, L500.72983, L500.23946, L500.28550 ####Test performed at: [place] [address] Aspartate aminotransferase (AST) 15 U/L Normal 15-37 [facility] Comment on above: Order Comment: CONSE RVATIONIs patient fasting? UNKNOWN Performed By: #### L 500.54702, L500.53759, L500.22413, L500.88906 ####Test performed at: [place] [address] BILI TOTAL 0.7 mg/dL Normal 0.2-1.0 [facility] Comment on above: Order Comment: CONSE RVATIONIs patient fasting? UNKNOWN Performed By: #### L 500.52198, L500.62345, L500.50785, L500.14826 ####Test performed at: [place] [address] Calcium 8.3 mg/dL Low 8.5-10.1 [facility] Comment on above: Order Comment: CONSE RVATIONIs patient fasting? UNKNOWN Performed By: #### L 500.71697, L500.18176, L500.77719, L500.19685 ####Test performed at: [place] [address] Chloride 108 mmol/L High 98-107 [facility] Comment on above: Order Comment: CONSE RVATIONIs patient fasting? UNKNOWN Performed By: #### L 500.86999, L500.56177, L500.83162, L500.82365 ####Test performed at: [place] [address] CO2 30 mmol/L Normal 21-32 [facility] Comment on above: Order Comment: CONSE RVATIONIs patient fasting? UNKNOWN Performed By: #### L 500.37096, L500.13146, L500.92431, L500.16020 ####Test performed at: [place] [address] Creatinine 0.648 mg/dL Normal 0.550-1.020 [facility] Comment on above: Order Comment: CONSE RVATIONIs patient fasting? UNKNOWN Performed By: #### L 500.71583, L500.59683, L500.15590, L500.55855 ####Test performed at: [address] [address] Glucose mass conc 94 mg/dL Normal 74-106 [facility] Comment on above: Order Comment: CONSE RVATIONIs patient fasting? UNKNOWN Performed By: #### L 500.25502, L500.63897, L500.07594, L500.45113 ####Test performed at: [place] [id number] Potassium molar conc 4.2 mmol/L Normal 3.5-5.1 [facility] Comment on above: Order Comment: CONSE RVATIONIs patient fasting? UNKNOWN Performed By: #### L 500.30151, L500.37585, L500.53679, L500.74136 ####Test performed at: [place] [address] Protein 6.4 g/dL Normal 6.4-8.2 [facility] Comment on above: Order Comment: CONSE RVATIONIs patient fasting? UNKNOWN Performed By: #### L 500.20690, L500.15493, L500.73313, L500.23333 ####Test performed at: [place] [id number] Sodium 142 mmol/L Normal 136-145 [facility] Comment on above: Order Comment: CONSE RVATIONIs patient fasting? UNKNOWN Performed By: #### L 500.80551, L500.24967, L500.04458, L500.38885 ####Test performed at: [place] [id number] Urea nitrogen 10 mg/dL Normal 7-18 [facility] Comment on above: Order Comment: CONSE RVATIONIs patient fasting? UNKNOWN Performed By: #### L 500.02169, L500.23625, L500.07615, L500.00820 ####Test performed at: [place] [id number] Cardiology Progress Noteon 0 05-03-2017 Cardiology Progress Note [facility] Pt Name: QUE SNOWA[address] MR#: [id number], [place] [address] ACCT: [id number] NOTE - Cardiology : 59Service Date: 05/04/17 1131NAME: ELDON SNOWSherry#: [id number] OF SERVICE: 05/04/2017CARDIOLOGY PROGRESS NOTESUBJECTIVE: Mrs. Snow [...] me with jason 1 month. CANDICE TORRES, MDRJS/[id number]: 05/04/2017 11:31:37 eSign Date and TimeSteele,Candice Blanca MD Signature on File 05/04/17 1156 Normal [facility] EKGon 05-03-2017 EKG Acquired on 05/03/19 18 0957Vent. Rate : 055 BPM Atrial Rate : 055 BPMP-R Int : 188 ms QRS Dur : 080 msQT Int : 396 ms P-R-T Axes : 058 062 055 degreesQTc Int : 378 msSinus bradycardiaOtherwise normal ECGNo previous ECGs availableConfirmed by CANDICE TORRES MD ([id number]) on 05/04/2017 11:16:47 AMReferred By: Confirmed By:CANDICE TORRSE [id number] 2017 [facility] PT NAME: ANNELISE SNOW#: [id number] [place] [address] ACCT: [id number]: [id number] REPORT Normal [facility] ESTWoo FRANK CLRon 05-03-2017 Creatinine 104.424 ML/MIN Normal [facility] Comment on above: Order Comment: CONSE RVATIONIs patient fasting? UNKNOWN Result Comment: This result is an ESTIMATED blood creatinine clearance valuewhich is derived from the patient age, sex, weight, andprevious blood creatinine result. Performed By: #### L 500.18878, L500.83135, L500.96987, L500.46766 ####Test performed at: [place] [address] GFR ESTIMATEon 05-03-2017 IF AMER > 60 Normal > 60 [facility] Comment on above: [...] for clinical interpretation. Performed By: #### L 500.90084, L500.92737, L500.46375, L500.93633 ####Test performed at: [place] [address] IF non-AFR AMER > 60 Normal > 60 [facility] Comment on above: Order Comment: CONSE RVATIONIs patient fasting? UNKNOWN Performed By: #### L 500.43239, L500.57461, L500.17426, L500.52099 ####Test performed at: [place] [address] LIPID PROFILEon 05-03-2017 Cholesterol 255 mg/dL High <200 [facility] Comment on above: Order Comment: CONSE RVATIONIs patient fasting? UNKNOWN Result Comment: <200 mg/dL (Desirable) 200-240 mg/dL (Borderline) >240 mg/dL (High Risk) Performed By: #### L 500.53228, L500.28974, L500.09246, L500.83655 ####Test performed at: [place] [address] HDL Cholesterol 51 mg/dL Normal 40-60 [facility] Comment on above: Order Comment: CONSE RVATIONIs patient fasting? UNKNOWN Performed By: #### L 500.53164, L500.31181, L500.68704, L500.75488 ####Test performed at: [place] [address] LDL Cholesterol 188 mg/dL High 60-130 [facility] Comment on above: Order Comment: CONSE RVATIONIs patient fasting? UNKNOWN Performed By: #### L 500.49566, L500.40804, L500.37369, L500.46105 ####Test performed at: [place] [address] Triglyceride 99 mg/dL Normal <150 [facility] Comment on above: Order Comment: CONSE RVATIONIs patient fasting? UNKNOWN Result Comment: <150 mg/dL (Normal) 150-199 mg/dL (Borderline) 200-499 mg/dL (High) >500 mg/dL (Very High) Performed By: #### L 500.79340, L500.67569, L500.78160, L500.98181 ####Test performed at: [place] [address] PROTIMEon 05-03-2017 INR Coag RelTime (PPP) 1.06 {INR} Normal 0.00-1.20 [facility] Comment on above: Order Comment: CONSE RVATIONList patient's anticoagulants for PT: HEPARIN Result Comment: Troy mmended therapeutic range is an INR of 2.0-3.0 exceptfor prevention of recurrent acute ME and mechanicalprosthetic heart valve where an INR of 2.5-3.5 isrecommended. Performed By: #### L 300.36580 ####Test performed at: [address] [address] PT SEC 11.2 seconds Normal 9.7-11.5 [facility] Comment on above: Order Comment: CONSE RVATIONList patient's anticoagulants for PT: HEPARIN Performed By: #### L 300.62559 ####Test performed at: [address] [address] Vital Signs Date Time Vital Sign Value Performing Clinician Arti cotton 12-20-2023 09:47-0400 Body height 165.1 cm [facility] 12-20-2023 09:47-0400 Body mass index (BMI) [Ratio] 27.7 kg/m2 [facility] 12-20-2023 09:47-0400 Body weight 75.52 kg [facility] 12-20-2023 09:47-0400 Diastolic blood pressure 77 mm[Hg] [facility] 12-20-2023 09:47-0400 Heart rate 68 /min [facility] 12-20-2023 09:47-0400 Respiratory rate 12 /min [facility] 12-20-2023 09:47-0400 Systolic blood pressure 127 mm[Hg] [facility] 08-15-2023 09:13-0400 Body height 165.1 cm [facility] 08-15-2023 09:13-0400 Body mass index (BMI) [Ratio] 26.6 kg/m2 [facility] 08-15-2023 09:13-0400 Body weight 72.74 kg [facility] 08-15-2023 09:13-0400 Diastolic blood pressure 69 mm[Hg] [facility] 08-15-2023 09:13-0400 Heart rate 60 /min [facility] 08-15-2023 09:13-0400 Respiratory rate 12 /min [facility] 08-15-2023 09:13-0400 Systolic blood pressure 118 mm[Hg] [facility] 06-05-2023 08:38-0400 Body height 165.1 cm [facility] 06-05-2023 08:38-0400 Body mass index (BMI) [Ratio] 26.8 kg/m2 [facility] 06-05-2023 08:38-0400 Body weight 73.02 kg [facility] 06-05-2023 08:38-0400 Diastolic blood pressure 76 mm[Hg] [facility] 06-05-2023 08:38-0400 Heart rate 73 /min [facility] 06-05-2023 08:38-0400 Respiratory rate 12 /min [facility] 06-05-2023 08:38-0400 Systolic blood pressure 124 mm[Hg] [facility] 06-19-2021 14:55-0400 Blood Pressure Location Rachelle Lue [facility] 06-19-2021 14:55-0400 Diastolic blood pressure 78 mm[Hg] Rachelle Lue [facility] 06-19-2021 14:55-0400 Heart rate 78 /min Rachelle Lue [facility] 06-19-2021 14:55-0400 Respiratory rate 16 /min Rachelle Lue [facility] 06-19-2021 14:55-0400 Systolic blood pressure 115 mm[Hg] Rachelle Lue [facility] Encounters Encounter Date Encounter Type Care Provider Facility Start: 01-29-2024 End: 01-30-2024 ambulatory [facility] Start: 12-20-2023 End: 12-20-2023 ambulatory [facility] Work Phone: Start: 12-20-2023 End: 12-20-2023 Patient encounter procedure [facility] Physician [facility] Work Phone: Start: 11-19-2023 Non-patient / Non-visit [facility] Physician [facility] Work Phone: Start: 10-14-2023 End: 10-14-2023 ambulatory NADIA [facility] Not Available Start: 09-30-2023 End: 09-30-2023 ambulatory RUFINO B APLING Not Available Start: 09-09-2023 End: 09-09-2023 ambulatory DALE COLONZIO Not Available Start: 09-04-2023 End: 09-04-2023 ambulatory RUFINO B APLING Not Available Start: 08-28-2023 End: 08-28-2023 Evaluation and management of inpatient [facility] Start: 08-28-2023 End: 08-28-2023 Evaluation and management of inpatient [facility] Start: 08-15-2023 End: 08-15-2023 ambulatory [facility] Work Phone: Start: 08-15-2023 End: 08-15-2023 Patient encounter procedure [facility] Physician [facility] Work Phone: Start: 08-07-2023 End: 08-07-2023 ambulatory [facility] Start: 08-07-2023 End: 08-07-2023 Encounter for preprocedural cardiovascular examination [facility] Start: 08-01-2023 Encounter for other preprocedural examination [facility] Start: 08-01-2023 End: 08-01-[address] [facility] Start: 07-30-2023 End: 07-30-2023 ambulatory LORRAINE Terence JOSEPHINE Not Available Start: 07-22-2023 End: 07-22-2023 ambulatory LORRAINE Pratt JOSEPHINE Not Available Start: 07-16-2023 End: 07-16-2023 ambulatory LORRAINE Pratt JOSEPHINE Not Available Start: 06-05-2023 End: 06-05-2023 ambulatory [facility] Work Phone: Start: 06-05-2023 End: 06-05-2023 Encounter for general adult medical examination without abnormal findings [facility] Start: 06-05-2023 End: 06-05-2023 Patient encounter procedure [facility] Physician [facility] Work Phone: Start: 05-31-2023 Non-patient / Non-visit [facility] Work Phone: Start: 05-08-2023 Non-patient / Non-visit [facility] Physician [facility] Work Phone: Start: 05-08-2023 Non-patient / Non-visit [facility] Physician [facility] Work Phone: Start: 05-07-2023 End: 05-07-2023 ambulatory ABI GIBBS Not Available Start: 04-30-2023 End: 04-30-2023 ambulatory LORRAINE RAYA Not Available Start: 04-09-2023 End: 04-09-2023 ambulatory LORRAINE RAYA Not Available Start: 04-01-2023 End: 04-01-2023 ambulatory ABI GIBBS Not Available Start: 03-26-2023 Patient encounter procedure [facility] Physician [facility] Start: 03-18-2023 End: 03-18-2023 ambulatory ABI GIBBS Not Available Start: 08-20-2022 ambulatory Rachelle Whitfield Facility:[facility] Start: 06-30-2022 End: 07-01-[address] [...] examination without abnormal findings DR SON IRIZARRY [facility] Start: 02-09-2022 End: 02-10-[address] SON IRIZARRY Facility:[facility] Start: 02-09-2022 End: 02-10-2022 Encounter for general adult medical examination without abnormal findings DR SON IRIZARRY Facility: Start: 12-07-2021 End: 12-08-2021 ambulatory Rachelle M. Lue Facility:[facility] Start: 12-07-2021 End: 12-07-2021 Patient encounter procedure Rachelle M. Lue [facility] Start: 10-09-2021 End: 10-10-2021 ambulatory RACHELLE M LUE . Facility: Start: 06-19-2021 End: 06-19-2021 Patient encounter procedure Rachelle M. Lue [facility] Start: 05-03-2017 End: 05-04-2017 Evaluation and management of inpatient Family Physician Unavailable Facility:[facility] Procedures Date Procedure Procedure Detail Performing Clinician [...] Activity Detail Author Start: 06-05-2023 Patient referral [facility] Work Phone: Patient referral [facility] Work Phone: [facility] Immunizations Immunization Date Immunization Notes Care Provider Fa bk NEGATED: Highlighted row has not occurred!03-18-2019 influenza virus vaccine, live, attenuated, for intranasal use Rachelle Whitfield [facility] Payers Date Payer Category Payer Private Health Insurance [id number] 1960 Self-pay [id number] 1960 Unknown [id number] 1960 Unknown [id number] 2.16.84 0.1.190830.3.579.2.593 1959 Unknown [id number] 2.16.84 0.1.671436.3.579.2.593 1959 Unknown [id number] 2.16.84 0.1.508768.3.579.2.593 1959 Unknown [id number] 2.16.84 0.1.834329.3.579.2.593 1959 Unknown [id number] 2.16.84 0.1.461163.3.579.2.593 1959 Unknown [id number] 2.16.84 0.1.899277.3.579.2.593 1959 Unknown [id number] 2.16.84 0.1.151952.3.579.2.593 1959 Unknown [id number] 2.16.84 0.1.324030.3.579.2.593 1959 Unknown [id number] 2.16.84 0.1.815050.3.579.2.593 1959 Unknown [id number] 2.16.84 0.1.479205.3.579.2.593 1959 Unknown [id number] 2.16.84 0.1.902430.3.579.2.593 1959 Unknown [id number] 2.16.8 40.1.191494.3.579.2.727 1959 Unknown [id number] 2.16.8 40.1.922742.3.579.2.727 1959 Unknown [id number] 2.16.8 40.1.199683.3.579.2.1286 1959 Unknown [id number] 2.16.8 40.1.704022.3.579.2.1286 1959 Unknown [id number] 2.16.8 40.1.330204.3.579.2.1286 1959 Unknown [id number] 2.16.8 40.1.211623.3.579.2.1286 1959 Unknown [id number] 2.16.8 40.1.827086.3.579.2.1286 1959 Unknown [id number] 2.16.8 40.1.934868.3.579.2.1286 1959 Unknown [id number] 2.16.84 0.1.427498.3.579.2.1259 1959 Unknown [id number] 2.16.84 0.1.106662.3.579.2.1259 1959 Unknown [id number] 2.16.84 0.1.290390.3.579.2.1259 1959 Unknown [id number] 2.16.84 0.1.268640.3.579.2.1259 1959 Unknown [id number] 2.16.84 0.1.675159.3.579.2.1259 1959 Unknown [id number] 2.16.84 0.1.959696.3.579.2.1259 1959 Unknown [id number] 2.16.84 0.1.264508.3.579.2.1259 1959 Unknown [id number] 2.16.84 0.1.285416.3.579.2.1259 1959 Unknown [id number] 2.16.84 0.1.818853.3.579.2.1259 1959 Unknown [id number] 2.16.84 0.1.251305.3.579.2.1259 1959 Unknown [id number] 2.16.84 0.1.416004.3.579.2.1259 1959 Unknown [id number] 2.16.84 0.1.036628.3.579.2.1259 1959 Unknown [id number] 2.16.84 0.1.077061.3.579.2.1259 1959 Unknown [id number] 2.16.840 .1.145486.3.579.2.1259 Self-pay Self Pay [id number] Social History Date Type Detail Facility Start: 02-05-2017 End: 06-19-2021 Tobacco smoking status Ex-smoker (finding) [facility] Sex Assigned At Female Exec[facility] Start: 1960 Sex Assigned At Female [facility] Functional Status Date Assessment Result Facility 12-07-2021 Functional Status N/A [facility] Clinical Notes 06-19-2021 to 01-29-2024 Note Date & Type Note Facility 01-29-2024 Note [facility] Subjective Pam Snow is a 64 y.o. year old female patient being seen for 6 mo follow up CAD, statin intolerance, and stable angina. Last lipid panel was done in Nov 2023. She's been walking 5 miles in the morning. Denies chest pain, SOB, and palpitations. Doing very well. 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 She is a 64-year-old woman with prior history of coronary artery disease status post stenting of the LAD in 2007 (cypher). She has significant hyperlipidemia and is intolerant of statins. She has tried about 5 different statins. She used to be on Praluent 75 mg every 2 weeks but that did not control her lipid profile. I increase it to 150 mg every 2 weeks. Follow up LDL was 204. She did not tolerate ezetimibe. At last visit of 08/07/2023 I added bempedoic acid 180 mg once daily. Her last cardiac catheterization in 2017 showed nonobstructive coronary disease. A treadmill stress test in 2023 showed no evidence of ischemia by myocardial nuclear perfusion imaging. Her echocardiogram in 2022 was within normal limits. She had shoulder surgery in August 2023 and that went well. she denies chest pain, shortness of breath, palpitations, dizziness, syncope and leg edema. she has good exercise tolerance. There is no claudication. Review of Systems Respiratory: Positive for cough. All other systems reviewed and are negative. Objective Visit Vitals BP 120/70 (BP Location: Left arm, Patient Position: Sitting) Pulse 71 Ht 1.626 m (5' 4 ) Wt 73.9 kg (163 lb) SpO2 95% BMI 27.98 kg/m??? Smoking Status Former BSA 1.83 m??? Physical Exam Constitutional: Appearance: She is [...] Judgment: Judgment normal. Allergies Allergies Allergen Reactions Lpnmjxw-Uww-Hmm Reductase Inhibitors Unknown Medications Current Outpatient Medications: aspirin 81 mg EC tablet, Take 81 mg by mouth in the morning., Disp: , Rfl: bempedoic acid 180 mg tablet, Take 180 mg by mouth in the morning., Disp: 90 tablet, Rfl: 3 buPROPion XL (Wellbutrin XL) 300 mg 24 hr tablet, , Disp: , Rfl: cyanocobalamin (Vitamin B-12) 1,000 mcg/mL injection, , Disp: , Rfl: mlkegcfsnyy-cprqimfnk-wrvprrib (Trelegy El (more content not included)... [facility] 08-07-2023 Note [facility] Subjective Pam Snow is a 63 y.o. year old female patient being seen for CAD, statin intolerance, and stable angina. She needs cleared for shoulder surgery, scheduled 08/[address] Raya. She had EKG last week at [facility]. 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 Allergies Allergies Allergen Reactions Cawkcwy-Vhd-Tww Reductase Inhibitors Unknown Medications Current Outpatient Medications: aspirin 81 mg EC tablet, Take 81 mg by mouth in the morning., Disp: , Rfl: buPROPion XL (Wellbutrin XL) 300 mg 24 hr tablet, , Disp: , Rfl: cyanocobalamin (Vitamin B-12) 1,000 mcg/mL injection, , Disp: , Rfl: sjasdnhavrv-cscfyflfi-pcsnffav (Trelegy Ellipta) 100-62.5-25 mcg blister with device, 1 puff 1 (one) time each day at the same time., Disp: , Rfl: hydroCHLOROthiazide (HYDRODiuril) 25 mg ta (more content not included)... [facility] 12-07-2021 Hospital Discharge instructions Patient Education 12/07/2021 15:35:55 Kidney Stones, Pheh-an-Tsaa Kidney Stones Kidney stones are rock-like masses [...] Follow these instructions at home: Medicines Take iqdo-gmy-ncygvxh and prescription medicines only as told by [...] 08/13/2008 Document Revised: 07/14/2019 Document Reviewed: 07/14/2019 [employer] Patient Education 2020 [employer]. Follow Up Care 06/19/2021 15:23:52 With:Nahid KELLY, WILLOW Little, URO Address: When: Unknown [facility] 06-19-2021 Hospital Discharge instructions Patient Education 06/19/2021 [...] include: ?Spinach. ?Rhubarb. ?Beets. ?Potato chips and setswana fries. ?Nuts. If you regularly take a diuretic medicine, make sure to eat at least 1 2 fruits or vegetables high in potassium each day. These include: ?Avocado. ?Banana. ?[place], prune, carrot, or tomato juice. ?Baked potato. [...] Casseroles. Pizza. Lasagna. Frozen meals. Potato chips. Algerian fries. Summary You can reduce your risk [...] 06/22/2011 Document Revised: 06/17/2019 Document Reviewed: 02/05/2017 [employer] Patient Education 2020 [employer]. Follow Up Care 05/15/2021 15:10:22 With:Nahid KELLY, Rachelle Monroe, URL, URO Address: [facility] [address] [address]- When:09/18/2021 Comments:w/24hr urine [facility] Evaluation + Plan note Future Appointments Appointment Date:10/02/2021 03:15:00 PM Scheduled Provider:Rachelle Whitfield MD Location:[facility] Appointment Type:URO Office Visit [facility] Evaluation + Plan note Future Appointments Appointment Date:06/07/2022 03:15:00 PM Scheduled Provider:Rachelle Whitfield MD Location:[facility] Appointment Type:URO Office Visit [facility] Evaluation note Diagnosis Onset Date ASHD (arteriosclerotic heart disease) acute Chronic bronchitis, simple a cute Elevated cholesterol acute GERD (gastroesophageal reflux disease) acute Hypertension acute Screening for colon cancer n oneactive Screening mammogram for breast cancer noneactive Wellness examination noneact yudelka [facility] Work Phone: Evaluation note* Diagnosis Onset Date [...] acute Preop exam for internal medicine noneactive [facility] Work Phone: Evaluation note* Diagnosis Onset Date Resolution Status Fatigue acute Primary insomnia acute [facility] Work Phone: Hospital course Narrative No data available for this section [facility] Progress note No data available for this section [facility] Summary Purpose Family History No Family History [...] Wellness examination Chief Complaint Well[facility] Reason for Visit ASHD (arteriosclerot ic [...] section and content) DATE CREATED AUTHOR 08/30/2017 [facility] DATE CREATED AUTHOR AUTHOR'S ORGANIZ ATION 07/07/2022 [facility] DATE CREATED AUTHOR AUTHOR'S ORGANIZ ATION 09/26/2022 [facility] DATE CREATED AUTHOR AUTHOR'S ORGANIZ ATION 08/29/2023 [facility] DATE CREATED AUTHOR AUTHOR'S ORGANIZ ATION 10/16/2023 [facility] EPIC DATE CREATED AUTHOR AUTHOR'S ORGANIZ ATION 02/01/[address] [facility] Care Team (unrecognized sect ion and [...] Dates Son Irizarry , DO Primary Care Provider Active Start: May [...] Dates Son Irizarry , DO Primary Care Provider Active Start: November [...] BE BASED ON THE PRIMARY CLINICAL RECORDS. [facility] [employer] provides no warranty or guarantee of the accuracy or completeness of information in this document.
--- NOTE | 2024-03-11 09:42 | XR_ITS ---
[address] [address] Patient Name: SVETLANA BURNETT MRN: [id number] date: 1960 Sex: F Assigned Patient Location: ER Current Patient Location: ER Accession/Order Number: [id number] Exam Date: 03/11/2024 09:58 Report Date: 03/11/2024 10:16 At the request of: FERNANDO KEITH Procedure: XR chest 1V EXAM: XR chest 1V INDICATION: cough and sob. COMPARISON: Chest x-ray 04/17/2022 TECHNIQUE: Single frontal view of the chest FINDINGS: Normal cardiomediastinal contours. No acute infiltrative process. No pleural effusion or pneumothorax. No acute osseous abnormality. XR/XR chest 1V IMPRESSION: No acute cardiopulmonary process. Electronically authenticated by: BRISEYDA RIDDLE Date: 03/11/2024 10:16
--- NOTE | 2024-03-11 09:48 | ECG_ITS ---
[facility] Test Date: 2024-03-11 Pat Name: SVETLANA BURNETT Department: Room: - Gender: Female Manager Privacy: : 1960 Requested By: HETAL WALLACE Order Number: [id number] Reading MD: HETAL WALLACE Measurements Intervals [place] Rate: 82 P: 75 IN: 178 QRS: 82 QRSD: 80 T: 64 QT: 348 QTc: 386 Interpretive Statements 1100 Sinus rhythm [address] depression 0102 ARTIFACT PRESENT 9150 abnormal ECG Compared to ECG 05/04/2020 15:27:00 ST (T wave) deviation now present Electronically Signed On 03-12-2024 7:04:15 EST by HETAL WALLACE
--- NOTE | 2024-03-11 09:52 | ED.URI1 ---
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 Cough productive of phlegm and the patient have decreased p.o. intake no chest pain No exposure to anybody with similar symptoms Patient have chest tightness no chest pain Related Data Home Medications ?Medication ?Instructions ?Recorded ?Confirmed alirocumab 150 mg/mL subcutaneous 150 mg subcut Q14D 03/11/24 03/11/24 pen injector (Praluent Pen) aspirin 81 mg chewable tablet 81 mg PO DAILY 03/11/24 03/11/24 (Aspirin Childrens) bupropion HCl 300 mg 24 hr tablet, 300 mg PO DAILY 03/11/24 03/11/24 extended release cyanocobalamin (vitamin B-12) 1,000 mcg IM .monthly 03/11/24 03/11/24 1,000 mcg/mL injection solution fluticasone fur. 100 mcg-umeclid 1 inh inhalation Q24H 03/11/24 03/11/24 62.5 mcg-vilant 25 mcg inhalat.powder (Trelegy Ellipta) hydrochlorothiazide 25 mg tablet 25 mg PO DAILY 03/11/24 03/11/24 metoprolol succinate 25 mg 25 mg PO DAILY 03/11/24 03/11/24 tablet,extended release 24 hr potassium citrate 10 mEq (1,080 10 meq PO DAILY 03/11/24 03/11/24 mg) tablet,extended release Previous Rx's ?Medication ?Instructions ?Recorded albuterol sulfate 90 mcg/actuation 2 inh inhalation Q6H PRN shortness 03/11/24 aerosol inhaler of breath or wheezing #8.5 grams azithromycin 250 mg tablet See Rx Instructions PO .COMPLEX #6 03/11/24 (Zithromax Z-Kenney) tabs guaifenesin 600 mg tablet, 600 mg PO BID PRN congestion #10 03/11/24 extended release 12 hr (Mucinex) tabs prednisone 20 mg tablet 40 mg (2 x 20 mg) PO DAILY 5 days 03/11/24 #10 tabs Allergies Allergy/AdvReac Type Severity Reaction Status Date / Time Dfoffzv-AEA-FhM Reductase AdvReac Cramping Verified 03/11/24 09:39 Inhibitor of the Muscles Review of Systems ROS Status of ROS 10 or more systems reviewed and unremarkable except as noted in history and below [facility] Medical History (Updated 03/11/24 @ 11:53 by Vanna Sharpe MD) High cholesterol ?E78.00 - Pure hypercholesterolemia, unspecified (ICD-10) Hypertension ?I10 - Essential (primary) hypertension (ICD-10) Surgical History (Updated 03/11/24 @ 09:45 by Mirian Cote) History of appendectomy ?Z90.49 - Acquired absence of other specified parts of digestive tract (ICD-10) H/O: hysterectomy ?Z90.710 - Acquired absence of both cervix and uterus (ICD-10) H/O rotator cuff surgery ?Z98.890 - Other specified postprocedural states (ICD-10) Social History Little interest or pleasure in doing things: not at all Feeling down, depressed, or hopeless: not at all Exam Narrative Exam Narrative: Nurses notes and vital signs reviewed and patient is not hypoxic. General: Well-appearing and in no apparent distress. Skin: Warm, dry, no pallor noted. No rash. Head: Normocephalic, atraumatic. Neck: Supple, non-tender. Eye: Pupils are equal, round and EOMI. No scleral icterus. Ears, Nose, Mouth, and Throat: TM are clear, no nasal mucosal hypertrophy. Oral mucosa is moist, no posterior oropharynx erythema, uvula is mid-line Cardiovascular: Regular Rate and Rhythm without murmur, gallop or rub. Respiratory: Decreased air entry bilaterally Chest Wall: no tenderness Back: No midline thoracic or lumbar vertebral tenderness. No CVA tenderness Musculoskeletal: normal ROM, no calf or popliteal tenderness, no lower extremity edema/swelling GI: Abdomen is soft, non-distended. Normal bowel sounds. No masses appreciated. No tenderness to palpation. No rebound, guarding, or rigidity noted. Neurological: A&O x4. No cranial nerve dysfunction observed. No truncal ataxia. Moves all extremities. Sensation intact. Psychiatric: Cooperative and interactive. Normal mood and affect. Constitutional Vital Signs, click to edit/add: Last Vital Signs Temp 98.5 F 03/11/24 09:35 Pulse 86 03/11/24 11:20 Resp 27 H 03/11/24 11:20 BP 112/67 03/11/24 11:30 Pulse Ox 94 L 03/11/24 11:20 O2 Del Method Room Air 03/11/24 09:35 Course Vital Signs Vital signs: Vital Signs Pulse Oximetry 93 L 03/11/24 09:33 Temperature 98.5 F 03/11/24 09:35 Pulse Rate 86 03/11/24 11:20 Respiratory Rate 27 H 03/11/24 11:20 Blood Pressure 112/67 03/11/24 11:30 Pulse Oximetry 94 L 03/11/24 11:20 Oxygen Delivery Method Room Air 03/11/24 09:35 MDM - URI/Sore Throat MDM Narrative Medical decision making narrative: The patient EKG in the ER showing sinus rhythm with a heart rate of [address] elevation there is some mild ST depression with no reciprocal changes Chest x-ray showed no acute pathology CBC shows no significant pathology in addition to the patient also have a chemistry and troponin that are within normal The patient was treated in the ER with Solu-Medrol as well as breathing treatment after which she was feeling much better she have a history of asthma COPD And right now the patient was discharged home after she was treated with Z-Kenney prednisone and albuterol The patient was feeling much better after being evaluated and she was able to walk in the ER with no difficulty or shortness of breath The patient is to follow up with primary care physician in next 2-3 days or to return to the emergency department should any of the signs or symptoms worsen or new symptoms develop. The patient agrees with the following Diagnosis and Treatment plan and the patient will be discharged home. Lab Data Labs: Lab Results 03/11/24 Range/Units 09:38 WBC 11.4 H (4.0-11.0) 10^3/uL RBC 5.01 (4.20-5.40) 10^6/uL Hgb 15.0 (12.0-16.0) g/dL Hct 44.1 (36.0-48.0) % MCV 88.0 (81.0-99.0) fL MCH 29.9 (26.7-34.0) pg MCHC 34.0 (29.9-35.2) g/dL RDW 12.3 (11.0-15.0) % Plt Count 261 (150-450) 10^3/uL MPV 11.4 (9.5-13.5) fL Neut % (Auto) 78.9 H (43.0-75.0) % Lymph % (Auto) 11.2 L (20.5-60.0) % [place] % (Auto) 8.9 (1.7-12.0) % Eos % (Auto) 0.4 L (0.9-7.0) % Baso % (Auto) 0.4 (0.2-2.0) % Neut # (Auto) 9.0 H (1.4-6.5) 10^3/uL Lymph # (Auto) 1.3 (1.2-3.8) 10^3/uL [place] # (Auto) 1.0 H (0.3-0.8) 10^3/uL Eos # (Auto) 0.1 (0.0-0.7) 10^3/uL Baso # (Auto) 0.1 (0.0-0.1) 10^3/uL Abs Immat Gran (auto) 0.02 (0.00-0.03) 10^3/uL Imm/Tot Granulo (auto) 0.2 (0.0-0.5) % Sodium 139 (136-145) mmol/L Potassium 3.9 (3.5-5.1) mmol/L Chloride 103 (98-107) mmol/L Carbon Dioxide 25.1 (21.0-32.0) mmol/L Anion Gap 14.8 BUN 11.0 (7.0-18.0) mg/dL Creatinine 0.85 (0.55-1.02) mg/dL Est GFR ( Amer) >60 (>=60 mL/min/1.73m^2) Est GFR (Non-Af Amer) >60 (>=60 mL/min/1.73m^2) BUN/Creatinine Ratio 12.9 Glucose 133 H (74-106) mg/dL Calcium 9.0 (8.5-10.1) mg/dL Total Bilirubin 0.7 (0.2-1.0) mg/dL AST 71 H (15-37) U/L ALT 56 (14-59) U/L Alkaline Phosphatase 66 (46-116) U/L Troponin I High Sens 4.6 (4.0-51.3) pg/mL Total Protein 7.1 (6.4-8.2) g/dL Albumin 3.6 (3.4-5.0) g/dL Globulin 3.5 g/dL Albumin/Globulin Ratio 1.0 Influenza Type A Ag Negative Influenza Type B Ag Negative SARS-CoV-2 Ag (CV2AG) Negative (NEGATIVE) Discharge Plan Discharge Chief Complaint: Upper Respiratory Infection Clinical Impression: Asthma exacerbation in COPD Patient Disposition: Home, Self-Care Time of Disposition Decision: 11:52 Condition: Good Prescriptions / Home Meds: New prednisone 20 mg tablet 40 mg PO DAILY 5 Days Qty: 10 0RF azithromycin [Zithromax Z-Kenney] 250 mg tablet See Rx Instructions .ROUTE .COMPLEX Qty: 6 0RF Rx Instructions: For 250 mg dose pack: take 500 mg today (day 1), then 250 mg for 4 days (days 2-5) guaifenesin [Mucinex] 600 mg tablet extended release 12hr 600 mg PO BID PRN (Reason: congestion) Qty: 10 0RF albuterol sulfate 90 mcg/actuation HFA aerosol inhaler 2 inh inhalation Q6H PRN (Reason: shortness of breath or wheezing) Qty: 8.5 0RF No Action Praluent Pen 150 mg/mL pen injector 150 mg SUBCUT Q14D Rx Instructions: Last saturday bupropion HCl 300 mg tablet extended release 24 hr 300 mg PO DAILY cyanocobalamin (vitamin B-12) 1,000 mcg/mL solution 1,000 mcg IM .monthly Rx Instructions: n the Trelegy Ellipta 100-62.5-25 mcg blister with device 1 inh INHALATION Q24H hydrochlorothiazide 25 mg tablet 25 mg PO DAILY metoprolol succinate 25 mg tablet extended release 24 hr 25 mg PO DAILY potassium citrate 10 mEq (1,080 mg) tablet extended release 10 meq PO DAILY aspirin [Aspirin Childrens] 81 mg tablet,chewable 81 mg PO DAILY Print Language: Slovenian Instructions: COPD (Chronic Obstructive Pulmonary Disease) (DC) Referrals: Son Irizarry DO [Primary Care Provider] - 1 week Discharge Date/Time: 03/11/24 12:21
--- NOTE | 2024-03-11 09:53 | PC.NURSE ---
Coarse lung sounds with cough
[2024-03-11] MEDS: IPRATROPIUM/ALBUTEROL SULFATE 3 ML AMPUL.NEB IH (10:06)
[2024-03-11 10:17] LABS: Basophils Absolute Auto 0.1 10^3/uL (0.0-0.1); Basophils Percent Auto 0.4 % (0.2-2.0); Eosinophils Absolute Auto 0.1 10^3/uL (0.0-0.7); Eosinophils Percent Auto 0.4 % (0.9-7.0); Hematocrit 44.1 % (36.0-48.0); Immature Granulocytes Abs Auto 0.02 10^3/uL (0.00-0.03); Immature Granulocytes Pct Auto 0.2 % (0.0-0.5); Influenza Virus A Antigen Negative; Influenza Virus B Antigen Negative; Internal Control Within Normal Limits; Lymphocytes Absolute Auto 1.3 10^3/uL (1.2-3.8); Lymphocytes Percent Auto 11.2 % (20.5-60.0); Mean Corpuscular Hemoglobin 29.9 pg (26.7-34.0); Mean Platelet Volume 11.4 fL (9.5-13.5); Monocytes Percent Auto 8.9 % (1.7-12.0); Neutrophils Percent Auto 78.9 % (43.0-75.0); Platelet Count 261 10^3/uL (150-450); Red Blood Count 5.01 10^6/uL (4.20-5.40); Red Cell Distribution Width 12.3 % (11.0-15.0); SARS-CoV-2 Ag NEGATIVE (NEGATIVE); White Blood Count 11.4 10^3/uL (4.0-11.0)
[2024-03-11 10:27] LABS: Alanine Aminotransferase 56 U/L (14-59); Albumin Level 3.6 g/dL (3.4-5.0); Alkaline Phosphatase 66 U/L (46-116); Anion Gap 14.8; Aspartate Amino Transferase 71 U/L (15-37); BUN Creatinine Ratio 12.9; Bilirubin Total 0.7 mg/dL (0.2-1.0); Carbon Dioxide 25.1 mmol/L (21.0-32.0); Chloride 103 mmol/L (98-107); Estimated GFR (African America >60 (>=60 mL/min/1.73m^2); Estimated GFR (Non-African Ame >60 (>=60 mL/min/1.73m^2); Globulin 3.5 g/dL; Glucose 133 mg/dL (74-106); Potassium 3.9 mmol/L (3.5-5.1); Sodium 139 mmol/L (136-145); Total Protein 7.1 g/dL (6.4-8.2)
[2024-03-11 10:44] LABS: Troponin I High Sensitivity 4.6 pg/mL (4.0-51.3)
[2024-03-11] MEDS: METHYLPREDNISOLONE SOD SUCC PF 125 MG/2 ML VIAL IVP (10:45)
== END 2024-03-11 12:21 | disposition home or self-care (01) ==
PROVIDERS: Emergency Provider Emergency Medicine; PCP Internal Medicine
DX: J44.1 Chronic obstructive pulmonary disease with (acute) exacerbation (principal); Z90.710 Acquired absence of both cervix and uterus
CPT/HCPCS: 36415; 71045; 80053; 84484; 85025; 87804; 87811; 93005; 94640; 96374; 99285; J2919

== ENCOUNTER 2024-04-27 07:53 | Outpatient (OUT) | payer OTHER, SELFPAY ==
--- NOTE | 2024-04-27 07:55 | CT_ITS ---
[address] [address] Patient Name: SVETLANA BURNETT MRN: [id number] date: 1960 Sex: F Assigned Patient Location: CT Current Patient Location: CT Accession/Order Number: [id number] Exam Date: 04/27/2024 08:10 Report Date: 04/27/2024 17:27 At the request of: MARLENE MILTON Procedure: CT chest wo con EXAMINATION: CT chest wo con, 04/27/2024, 8:10 AM EST HISTORY: Multiple Pulmonary Nodules COMPARISON: CT chest 07/08/2023. TECHNIQUE: Multiple axial CT images of the chest were obtained without IV contrast. 2D coronal and sagittal MIP reformations were submitted for review. Dose reduction techniques were achieved by using automated exposure control and/or adjustment of mA and/or kV according to patient size and/or use of iterative reconstruction technique. FINDINGS: HEART AND PERICARDIUM: Cardiac size appears within normal limits. No pericardial fluid or nodularity. CORONARY ARTERIES: Coronary calcifications are moderate. THORACIC AORTA: No aortic aneurysm identified. Moderate calcified plaque. THYROID: Thyroid gland is enlarged and heterogeneous. SUPRACLAVICULAR REGION AND AXILLA: No lymphadenopathy. MEDIASTINUM AND MARCELLE: No lymphadenopathy or masses. ESOPHAGUS: The visualized esophagus appears unremarkable. LUNGS: Central airways are patent. Moderate centrilobular pulmonary emphysema. There is some streak-like bibasilar atelectasis. The 4 mm noncalcified nodule in the right upper lobe has intervally resolved. Stable 6 mm nodule in the lateral right upper lobe (image 43) and 3 mm nodule in the lingula (image 61). No new pulmonary nodules. Several nonobstructing right renal stones. PLEURA: No effusions or pleural nodularity. No pneumothorax. UPPER ABDOMEN: Visualized abdominal soft tissues appear unremarkable, as seen. OSSEOUS STRUCTURES: No aggressive appearing osseous lesions. No compression fracture is identified. Convex right curvature of the dorsal spine with moderate degenerative disc disease. CT/CT chest wo con IMPRESSION: 1. Resolution of a 4 mm nodule in the right upper lobe. Otherwise stable bilateral pulmonary nodules. 12 month follow-up CT is recommend. 2. Pulmonary emphysema with bibasilar atelectasis. 3. No lymphadenopathy. 4. Coronary artery calcific plaque. Electronically authenticated by: DAREK PACK Date: 04/27/2024 17:27
== END 2024-04-27 07:54 | disposition home or self-care (01) ==
LOC: CT 07:53
PROVIDERS: PCP Internal Medicine; Visit Provider Internal Medicine
DX: R91.8 Other nonspecific abnormal finding of lung field (principal); J43.8 Other emphysema
CPT/HCPCS: 71250

== ENCOUNTER 2024-06-13 06:39 | Outpatient (OUT) | payer OTHER, SELFPAY ==
--- OUTSIDE RECORDS SUMMARY | 2024-06-13 06:42 | XMS_ITS | CCD ---
Author Organization [facility]ini[facility] Care Team Providers Care Eeler Name Role Phone Unavailable, Family Physician Unavailable Un available Unavailable, Family Physician Unavailable Un available Torres, Candice J Unavailable Unavailable Torres, Candice J Unavailable Unavailable RODRIGO, SON Primary Care Physician LUE .RACHELLE Consulting Unavailable LUE ., RACHELLE Reyes Attending Unavailable LUE ., RACHELLE Reyes Admitting Unavailable BALL, DR FONG Primary Care Unavailable MOUKARBBRANDT BURK Consulting Unavailable MOUKARBBHARGAVI, BRANDT Attending Unavailable MOUKABRANDT GÓMEZ Admitting Unavailable RODRIGO, DR FONG Primary Care Unavailable MIRELA, DR HAIR Hale Consulting Unavailable MOUKARBBRANDT BURK Attending Unavailable MOUKARBEL, BRANDT Admitting Unavailable BALL, [...] Whitfield Attending Unavailable Rachelle Whitfield Attending Unavailable FARHANA, LORRAINE Pratt Referring Unavailable SON IRIZARRY Primary Care Unavailable FARHANA, LORRAINE Pratt Attending Unavailable FARHANA, LORRAINE Pratt Referring Unavailable SON IRIZARRY Primary Care Unavailable FARHANA, LORRAINE Pratt Attending Unavailable FARHANA, LORRAINE Pratt Referring Unavailable SON IRIZARRY Primary Care Unavailable FARHANA, LORRAINE Pratt Admitting Unavailable FARHANA, LORRAINE Pratt Attending Unavailable FARHANA, LORRAINE Pratt Referring Unavailable BACILIO ESQUEDA Attending Unavailable SON IRIZARRY Primary Care Unavailable GIBBS, ABI Barbour Attending Unavailable GIBBS, ABI Barbour Referring Unavailable GIBBS, ABI Barbour Attending Unavailable FARHANA, LORRAINE Pratt Attending Unavailable FARHANA, LORRAINE Pratt Attending Unavailable FARHANA, LORRAINE Pratt Attending Unavailable GIBBS, ABI Barbour Referring Unavailable FARHANA, LORRAINE Pratt Attending Unavailable FARHANA, LORRAINE Pratt Referring Unavailable FARHANA, LORRAINE Pratt Attending Unavailable APLING, RUFINO Corrales Attending Unavailable DALE WILSON Attending Unavailable APLING, RUFINO Corrales Attending Unavailable NADIA GILL Attending Unavail able APLING, RUFINO Corrales Referring Unavailable MOUKADALIA, BRANDT Attending Unavailable MOUKADALIA, BRANDT Attending Unavailable Son Irizarry DO Primary Care Provider [phone] Jim KELLY, Fam Nicole Attending Provider Allergies Allergy Classification Reported Allergen(s) Allergy Type Date of Onset Reaction(s) Facility (3 sources) Hmg-Coa Reductase Inhibitors (Statins); Translations: [statins] Drug allergy Unknown (qualifier value) [facility] (4 sources) black walnut pollen extract; Translations: [IFZWRAL-OJE-LC A REDUCTASE INHIBITORS] Drug Allergy 4 [facility] Repository (2 sources) Ozxphbz-TOL-LlJ Reductase Inhibitor Propensity to adverse reactions 5 Muscle Pain [facility] Medications Current Medications Medication Drug Class(es) Dates Sig (Normalized) Sig (Original) Alendronate (2 sources) Bisphosphonate Start: 03-18-2019 fosamax fosamax Start Date: 03/18/19 Status: Ordered 1 ml alirocumab 75 mg/ml prefilled syringe (1 source) PCSK9 Inhibitor Start: 03-18-2019 Praluent Syringe 75 mg/mL subcutaneous solution SubCutaneous, Refills(s) 0 Start Date: 03/18/19 Status: Ordered Alirocumab (Praluent Pen) 150 mg/mL pen injector (5 sources) Start: 06-04-2023 inject 150 mg by subcutaneous injection every other week Alirocumab (Praluent Pen) 150 mg/mL pen injector Active 150 MG SUBCUT EVERY 2 WEEKS June 04, 2023 12:00am Aspirin (2 sources) Platelet Aggregation Inhibitor, Nonsteroidal Anti-inflammatory Drug Start: 03-18-2019 aspirin 81 mg, Refills(s) 0 Start Date: 03/18/19 Status: Ordered bempedoic acid 180 mg oral tablet (4 sources) Start: 08-15-2023 take 1 tablet by mouth once daily Bempedoic Acid (Nexletol) 180 mg tablet Active 180 MG PO Daily August 15, 2023 12:00am 24 hr buPROPion hydrochloride 300 mg extended release oral tablet (20 sources) Aminoketone Start: 05-23-2023 End: 08-07-2023 take 1 tablet by mouth once daily Bupropion Hcl 300 mg tablet extended release 24 hr Active 0 .ROUTE .COMPLEX August 07, 2023 1:08pm TAKE 1 TABLET BY MOUTH DAILY Start: 05-08-2023 End: 05-23-2023 take 1 tablet by mouth once daily Bupropion Hcl 300 mg tablet extended release 24 hr Discontinued 300 MG PO Daily May 08, 2023 6:25pm May 23, 2023 12:25pm Start: 01-20-2020 take 1 tablet by zeina th every twenty-four hours buPROPion 300 mg XL /24 hrs mg tab(s), Oral, q24hr, Refills(s) 0 Start Date: 01/20/20 Status: Ordered Ynrkxfughor-Lrggeelqc-Fafycm er (5 sources) Anticholinergic, Corticosteroid, beta2-Adrenergic Agonist Start: 06-04-2023 Dzvcewnalkf-Ybuwixvhc-Mdulbs er (Trelegy Ellipta) 100-62.5-25 mcg blister with device Active 1 INH INHALATION Daily June 04, 2023 12:00am hydroCHLOROthiazide 25 mg or al tablet (10 sources) Thiazide Diuretic Start: 08-19-2023 t a k e 1 t a b l e t b y m o u t h o n c e d a i l y Hydrochlorothiazide 25 mg tablet Active 0 .ROUTE .COMPLEX 90 August 19, 2023 6:39am TAKE 1 TABLET BY MOUTH ONCE DAILY Start: 06-04-2023 End: 08-19-2023 take 1 tablet by mouth once daily Hydrochlorothiazide 25 mg tablet Discontinued 25 MG PO Daily June 04, 2023 12:00am August 19, 2023 6:39am Start: 12-12-2020 take 1 tablet by zeina th twice daily hydrochlorothiazide 25 mg Tab 25 mg = 1 tab(s), Oral, BID, # 180 tab(s), Refills(s) 3, Pharmacy: [facility], 162, cm, 03/16/20 8:23:00 EST, Height/Length Dosing, 68.7, kg, 03/16/20 8:23:00 EST, Weight Dosing Start Date: 12/12/20 Status: Ordered 24 hr metoprolol succinate 25 mg extended release oral tablet (4 sources) beta-Adrenergic Reanna Start: 08-15-2023 take 1 tablet by mouth once daily Metoprolol Succinate 25 mg tablet extended release 24 hr Active 25 MG PO Daily August 15, 2023 12:00am Multivitamin (Daily Multi-Vitamin) tablet (5 sources) Start: 06-04-2023 take 1 tablet by mouth once daily Multivitamin (Daily Multi-Vitamin) tablet Active 1 TAB PO Daily June 04, 2023 12:00am neocell super collagen 5000mcg (2 sources) Start: 01-20-2020 neocell super collagen 5000mcg neocell super collagen 5000mcg Start Date: 01/20/20 Status: Ordered potassium citrate 10 meq extended release oral tablet (11 sources) Start: 07-08-2023 take 2 tablets by mouth twice daily at mealtime Potassium Citrate 10 mEq (1,080 mg) tablet extended release Active 0 .ROUTE .COMPLEX 360 July 08, 2023 10:03pm TAKE 2 TABLETS BY MOUTH TWICE DAILY WITH MEALS Start: 06-04-2023 End: 07-08-2023 take 1 tablet by mouth once daily Potassium Citrate 10 mEq (1,080 mg) tablet extended release Discontinued 20 MEQ PO Daily June 04, 2023 [...] 8.6 mg Start Date: 01/20/20 Status: Ordered Vitamin B-12 1000 mcg/mL injectable solution (1 source) Start: 03-18-2019 Vitamin B-12 1000 mcg/mL injectable solution IntraMuscular, qMonth, Refills(s) 0 Start Date: 03/18/19 Status: Ordered vitamin b12 1 mg/ml injectable solution (8 sources) Vitamin B12 Start: 04-13-2024 inject 1 mL by intramuscular injection every month Cyanocobalamin (Vitamin B-12) 1,000 mcg/mL solution Active 0 .ROUTE .COMPLEX April 13, 2024 10:21am INJECT 1ML INTRAMUSCULARLY MONTHLY (DISCARD 28 DAYS AFTER FIRST USE) Start: 06-04-2023 End: 04-13-2024 inject 1000 ug by intramuscular injection every month Cyanocobalamin (Vitamin B-12) 1,000 mcg/mL solution Discontinued 1000 MCG IM every month June 04, 2023 12:00am April 13, 2024 10:22am Start: 06-04-2023 inject 1000 ug by in tramuscular injection every month Cyanocobalamin (Vitamin B-12) Active 1000 MCG IM every month June 04, 2023 12:00am Start: 03-18-2019 Vitamin B-12 1 000 mcg/mL injectable solution IntraMuscular, qMonth, Refills(s) 0 Start Date: 03/18/19 Status: Ordered Vitamin D3 (2 sources) Start: 03-18-2019 Vitamin D3 Heidi ly, Refills(s) 0 Start Date: 03/18/19 Status: Ordered Completed/Discontinued Medications Medication Drug Class(es) Dates Sig (Normalized) Sig (Original) [id number] 200 actuat albuterol 0.09 mg/actuat metered dose inhaler (5 sources) beta2-Adrenergic Agonist Start: 06-04-2023 End: 05-29-2024 take 1 puff(s) by inhalation every four hours as needed Albuterol Sulfate (Proventil Hfa) 90 mcg/actuation HFA aerosol inhaler Discontinued 2 PUFF INHALATION Every 4 hours as needed June 04, 2023 12:00am May 29, 2024 1:39pm cefdinir 300 mg oral capsule (1 source) [...] Status: Ordered cephalexin 500 mg oral capsule (5 sources) Cephalosporin Antibacterial Start: 02-05-2017 End: 06-04-2023 take 1 g by mouth twice daily Cephalexin (Keflex) 500 mg capsule Discontinued 1 GM PO Twice daily 05 10February 05, 2017 1:00am June 04, 2023 9:38am clopidogrel 75 mg oral tablet (5 sources) P2Y12 Platelet Inhibitor Start: 06-04-2023 End: 08-15-2023 take 1 tablet by mouth once daily Clopidogrel (Plavix) 75 mg tablet Discontinued 75 MG PO Daily June 04, 2023 12:00am August 15, 2023 9:29am esomeprazole 40 mg delayed release oral capsule (5 sources) Proton Pump Inhibitor Start: 06-04-2023 End: 05-29-2024 take 1 capsule by mouth twice daily Esomeprazole Magnesium 40 mg capsule,delayed release(DR/EC) Discontinued 40 MG PO Twice daily June 04, 2023 12:00am May 29, 2024 1:40pm lubiprostone (5 sources) Chloride Channel Activator Start: 06-04-2023 End: 05-29-2024 take 1 capsule by mouth twice daily Lubiprostone 8 mcg capsule Discontinued 8 MCG PO Twice daily June 04, 2023 12:00am May 29, 2024 1:40pm Start: 06-04-2023 take 8 ug by mouth twice daily Lubiprostone Active 8 MCG PO Twice daily June 04, 2023 12:00am sucralfate 1000 mg oral tablet (5 sources) Aluminum Complex Start: 06-04-2023 End: 05-29-2024 take 1 tablet by mouth four times daily Sucralfate (Carafate) 1 gram tablet Discontinued 1 GM PO Four times daily June 04, 2023 12:00am May 29, 2024 1:40pm Problems Active Problems Problem Classification Problem Date Documented Date Episodic/Chronic Abdominal pain (2 sources) Flank pain 03-05-2019 Episodic Acute cerebrovascular disease (2 sources) Hematoma of subdural space of neuraxis 04-22-2019 Chronic Anxiety disorders (5 sources) Generalized anxiety disorder; Translations: [Generalized anxiety disorder] 06-04-2023 Chronic Calculus of urinary tract (8 sources) Kidney stone; Translations: [Calculus of kidney] Onset: 06-19-2021 Episodic Cancer of uterus (2 sources) History of malignant neoplasm of uterine body 04-22-2019 Episodic Chronic obstructive pulmonary disease and bronchiectasis (17 sources) Acute exacerbation of chronic obstructive airways disease; Translations: [Chronic obstructive pulmonary disease with (acute) exacerbation] Onset: 08-01-2023 06-04-2023 Chronic Comment on above: LDCT: no suspicious nodules - 07/2023 Coronary atherosclerosis and other heart disease (16 sources) Atherosclerotic heart disease of [place] coronary artery without angina pectoris; Translations: [Coronary arteriosclerosis] Onset: 06-27-2022 06-04-2023 Chronic Coronary atherosclerosis and other heart disease (2 sources) Presence of coronary angioplasty implant and graft; Translations: [Presence of coronary angioplasty implant and graft] Onset: 01-29-2024 Episodic Disorders of lipid metabolism (18 sources) Hypercholesterolemia; Translations: [Hyperlipidemia] Onset: 05-21-2022 03-05-2019 Chronic Esophageal disorders (9 sources) Gastroesophageal reflux disease; Translations: [Gastro-esophageal reflux disease without esophagitis] 06-03-2023 Chronic Essential hypertension (15 sources) Hypertensive disorder; Translations: [Essential (primary) hypertension] Onset: 05-21-2022 04-22-2019 Chronic Genitourinary symptoms and ill-defined conditions (8 sources) Delay when starting to pass urine; Translations: [Increased frequency of urination] 03-05-2019 Episodic Malaise and fatigue (4 sources) Fatigue; Translations: [Other fatigue] 12-20-2023 Episodic Menopausal disorders (5 sources) Atrophic vaginitis; Translations: [Postmenopausal atrophic vaginitis] 06-04-2023 Chronic Miscellaneous mental health disorders (4 sources) Primary insomnia; Translations: [Primary insomnia] 12-17-2023 Chronic Osteoporosis (5 sources) Senile osteoporosis; Translations: [Age-related osteoporosis without current pathological fracture] Onset: 04-29-2018 06-04-2023 Chronic Other diseases of kidney and ureters (2 sources) Diverticulum of renal calyx 01-20-2020 Chronic Other endocrine disorders (2 sources) Disorder of endocrine system; Translations: [Endocrine disorder, unspecified] 12-23-2023 Episodic Other lower respiratory disease (4 sources) Shortness of breath; Translations: [SHORTNESS OF BREATH] Onset: 06-21-2022 Episodic Other lower respiratory disease (4 sources) Nodule of lung; Translations: [Solitary pulmonary nodule] 07-08-2023 Episodic Comment on above: LDCT: 6mm, 4mm RUL n odule - 06/2023LDCT: resolution of RUL nodule - 04/2024 Other lower respiratory disease (2 sources) Solitary pulmonary nodule; Translations: [Solitary pulmonary nodule] 06-11-2024 Episodic Other screening for suspected conditions (not mental disorders or infectious disease) (13 sources) Encounter for screening mammogram for malignant [...] [Other specified health status] Onset: 08-01-2022 Episodic Residual codes; unclassified (2 sources) Menopause present; Translations: [Asymptomatic menopausal state] 12-23-2023 Episodic Screening and history of mental health and substance abuse codes (4 sources) Personal history of nicotine dependence; Translations: [PERSONAL HISTORY OF NICOTINE DEPEND] Onset: 06-30-2022 Episodic Substance-related disorders (4 sources) Nicotine dependence; Translations: [Nicotine dependence, unspecified, uncomplicated] 06-08-2024 Chronic Syncope (5 sources) Syncope; Translations: [Syncope and collapse] 02-20-2023 Episodic Comment on above: Problem List clean-u p per request of Phys. EHR Cmte Unclassified (2 sources) Drug therapy finding 09-23-2019 Unclassified (3 sources) ACUTE COUGH; Translations: [ACUTE COUGH] Onset: 04-19-2022 Unclassified (1 source) left shoulder rotator cuff tear Onset: 08-28-2023 Urinary tract infections (2 sources) Chronic cystitis 03-16-2020 Chronic Urinary tract infections (7 sources) Urinary tract infectious disease; Translations: [Urinary tract infection, site not specified] 09-23-2019 Episodic Comment on above: Problem List clean-u p per request of Phys. EHR Cmte Past or Other Problems Problem Classification Problem Date Documented Da te Episodic/Chronic Unclassified (2 sources) Atrophy of left kidney 05-15-2021 Unclassified (2 sources) cardiac( Confirmed ) 02-15-2010 Unclassified (2 sources) low potassium( Confirmed ) 02-15-2010 Unclassified (1 source) ACUTE COUGH; Translations: [ACUTE COUGH] Onset: 04-17-2022 Results Test Name Value Interpretation Reference Range Facility Office Visiton 01-29-2024 Follow-up visit [id number] Kell Snow Monet 1960 F Date Provider Department Center 01/29/2024 Natasha-BRANDT MCNAMARA SANJANA Zachery Doron Family History Problem Relation Age of Onset Other Mother Coronary artery disease Sister Peripheral vascular disease Sister Coronary artery disease Brother Heart failure Brother Atrial fibrillation Brother Family Status - Relation Status Age at Mother Sister Brother Level of Service:27680 NM OFFICE/OUTPATIENT ESTABLISHED LOW MDM 20 MIN Normal [facility] 36on 11-20-2023 36 Regarding liver and lipid panel performed on 11/19/2023: MD Marilu Robles MA Her LDL is down to 75 from 204. This is great result. I can see her in 3 months. Patient made aware. Scheduled her an apt for Jan 2024. Normal [facility] Cholesterol in LDL Calc [Mas s/Vol]on 11-19-2023 Cholesterol in LDL [Mass/Vol] 75.6 mg/dL [facility] Comment on above: <100 mg/dl [id number] 0-129 mg/dl NEAR OR ABOVE [id number] mg/dl BORDERLINE [id number] mg/dl HIGH>190 mg/dl VERY HIGH Cholesterol in VLDL Calc [Ma ss/Vol]on 11-19-2023 Cholesterol in VLDL [Mass/Vol] 12.4 mg/dL [facility] Globulin Calc (S) [Mass/Vol] on 11-19-2023 Globulin (S) [Mass/Vol] 3.1 g/dL [facility] Laboratory - Chemistry and C hemistry - challengeon 11-19-2023 Albumin [Mass/Vol] 3.4 g/dL 3.4-5.0 [facility] ALP [Catalytic activity/Vol] 52 U/L 46-116 [facility] ALT [Catalytic activity/Vol] 32 U/L 14-59 [facility] AST [Catalytic activity/Vol] 21 U/L 15-37 [facility] Bilirubin [Mass/Vol] 0.6 mg/dL 0.2-1.0 [facility] Bilirubin.direct [Mass/Vol] 0.1 mg/dL 0.0-0.2 [facility] Cholesterol [Mass/Vol] 144 mg/dL <=200 [facility] Cholesterol in HDL [Mass/Vol] 56 mg/dL 40-60 [facility] Comment on above: > or =60 mg/dl - LOW CARDIOVASCULAR RISK<40 mg/dl - HIGH CARDIOVASCULAR RISK Protein [Mass/Vol] 6.5 g/dL 6.4-8.2 [facility] Triglyceride [Mass/Vol] 62 mg/dL <=150 [facility] Serum or plasma albumin/glob ulin mass ratioon 11-19-2023 Albumin/Globulin [Mass ratio] 1.1 {ratio} [facility] Serum or plasma total choles terol/high density lipoprotein (HDL) cholesterol mass robyn 11-19-2023 Cholesterol.total/Ch olesterol in HDL [Mass ratio] 2.6 {ratio} [facility] Comment on above: 3.3 - 4.4 LOW RISK4. 4 - 7.1 AVERAGE RISK7.1 - 11.0 MODERATE RISK>11.0 HIGH RISK Office Visiton 08-07-2023 Follow-up visit [id number] Kell Snow 1960 F Date Provider Department Center 08/07/2023 [facility]ANDT [facility] Zachery [facility] Family History Problem Relation Age of Onset Other Mother Coronary artery disease Sister Peripheral vascular disease Sister Coronary artery disease Brother Heart failure Brother Atrial fibrillation Brother Family Status - Relation Status Age at Mother Sister Brother Level of Service:28594 NM OFFICE/OUTPATIENT ESTABLISHED MOD MDM 30 MIN Normal [facility] MR SHOULDER LEFT WO IV CONTR [...] Basophils (Bld) [#/Vol] 0.1 10 3/uL 0.0-0.1 [facility] Basophils/100 WBC Auto (Bld) on 05-31-2023 Basophils/100 WBC (Bld) 2.1 % 0.2-2.0 [facility] Cholesterol in LDL Calc [Mas s/Vol]on 05-31-2023 Cholesterol in LDL [Mass/Vol] 204.0 mg/dL [facility] Comment on above: <100 mg/dl [id number] 0-129 mg/dl NEAR OR ABOVE [id number] mg/dl BORDERLINE [id number] mg/dl HIGH>190 mg/dl VERY HIGH Cholesterol in VLDL Calc [Ma ss/Vol]on 05-31-2023 Cholesterol in VLDL [Mass/Vol] 13.2 mg/dL [facility] Eosinophils/100 WBC Auto (Bl d)on 05-31-2023 Eosinophils/100 WBC (Bld) 5.2 % 0.9-7.0 [facility] Erythrocyte distribution wid th Auto (RBC) [Ratio]on 05-31-2023 Erythrocyte distribution width (RBC) [Ratio] 12.9 % 11.0-15.0 [facility] Estimated glomerular filtrat ion rate (GFR) non- Americanon 05-31-2023 GFR/1.73 sq M.predicted among non-blacks MDRD (S/P/Bld) [Vol rate/Area] mL/min/{1.73_m2} >=60 [facility] Globulin Calc (S) [Mass/Vol] on 05-31-2023 Globulin (S) [Mass/Vol] 3.6 g/dL [facility] Hematocrit Auto (Bld) [Volum e fraction]on 05-31-2023 Hematocrit (Bld) [Volume fraction] 44.0 % 36.0-48.0 [facility] Hemoglobin [Mass/volume] in Bloodon 05-31-2023 Hemoglobin (Bld) [Mass/Vol] 14.4 g/dL 12.0-16.0 [facility] Laboratory - Chemistry and C hemistry - challengeon 05-31-2023 Albumin [Mass/Vol] 3.4 g/dL 3.4-5.0 [facility] ALP [Catalytic activity/Vol] 78 U/L 46-116 [facility] ALT [Catalytic activity/Vol] 51 U/L 14-59 [facility] AST [Catalytic activity/Vol] 28 U/L 15-37 [facility] Bilirubin [Mass/Vol] 0.5 mg/dL 0.2-1.0 [facility] Calcium [Mass/Vol] 9.1 mg/dL 8.5-10.1 [facility] Chloride [Moles/Vol] 102 mmol/L 98-107 [facility] Cholesterol [Mass/Vol] 277 mg/dL <=200 [facility] Cholesterol in HDL [Mass/Vol] 60 mg/dL 40-60 [facility] Comment on above: > or =60 mg/dl - LOW CARDIOVASCULAR RISK<40 mg/dl - HIGH CARDIOVASCULAR RISK CO2 [Moles/Vol] 29.1 mmol/L 21.0-32.0 [facility] Creatinine [Mass/Vol] 0.76 mg/dL 0.55-1.02 [facility] GFR/1.73 sq M.predicted MDRD (S/P/Bld) [Vol rate/Area] mL/min/{1.73_m2} >=60 [facility] Glucose [Mass/Vol] 102 mg/dL 74-106 [facility] Potassium [Moles/Vol] 3.8 mmol/L 3.5-5.1 [facility] Protein [Mass/Vol] 7.0 g/dL 6.4-8.2 [facility] Sodium [Moles/Vol] 141 mmol/L 136-145 [facility] Triglyceride [Mass/Vol] 66 mg/dL <=150 [facility] Urea nitrogen [Mass/Vol] 21.0 mg/dL 7.0-18.0 [facility] Urea nitrogen/Creatinine [Mass ratio] 27.6 mg/mg [facility] Laboratory - Hematology and Cell countson 05-31-2023 Immature granulocytes/100 WBC (Bld) 0.2 % 0.0-0.5 [facility] Leukocytes [#/volume] correc johanna for nucleated erythrocytes in Blood by Automated counon 05-31-2023 WBC corrected for nucl RBC Auto (Bld) [#/Vol] 5.6 10 3/uL 4.0-11.0 [facility] Lymphocytes Auto (Bld) [#/Vo l]on 05-31-2023 Lymphocytes (Bld) [#/Vol] 1.7 10 3/uL 1.2-3.8 [facility] Lymphocytes/100 WBC Auto (Bl d)on 05-31-2023 Lymphocytes/100 WBC (Bld) 31.0 % 20.5-60.0 [facility] MCH Auto (RBC) [Entitic mass ]on 05-31-2023 MCH (RBC) [Entitic mass] 28.8 pg 26.7-34.0 [facility] MCHC Auto (RBC) [Mass/Vol]on 05-31-2023 MCHC (RBC) [Mass/Vol] 32.7 g/dL 29.9-35.2 [facility] MCV Auto (RBC) [Entitic vol] on 05-31-2023 MCV (RBC) [Entitic vol] 88.0 fL 81.0-99.0 [facility] Monocytes Auto (Bld) [#/Vol] on 05-31-2023 Monocytes (Bld) [#/Vol] 0.8 10 3/uL 0.3-0.8 [facility] Monocytes/100 WBC Auto (Bld) on 05-31-2023 Monocytes/100 WBC (Bld) 13.4 % 1.7-12.0 [facility] Neutrophils Auto (Bld) [#/Vo l]on 05-31-2023 Neutrophils (Bld) [#/Vol] 2.7 10 3/uL 1.4-6.5 [facility] Neutrophils/100 WBC Auto (Bl d)on 05-31-2023 Neutrophils/100 WBC (Bld) 48.1 % 43.0-75.0 [facility] No Panel Informationon 05-30 Eosinophils # (Auto) 0.3 10 3/uL 0.0-0.7 [facility] Immature Granulocyte # (Auto) 0.01 10 3/uL 0.00-0.03 [facility] Platelet mean volume Auto (B ld) [Entitic vol]on 05-31-2023 Platelet mean volume (Bld) [Entitic vol] 10.7 fL 9.5-13.5 [facility] Platelets Auto (Bld) [#/Vol] on 05-31-2023 Platelets (Bld) [#/Vol] 305 10 3/uL 150-450 [facility] RBC Auto (Bld) [#/Vol]on RBC (Bld) [#/Vol] 5.00 10 6/uL 4.20-5.40 [facility] Serum or plasma albumin/glob ulin mass ratioon 05-31-2023 Albumin/Globulin [Mass ratio] 0.9 {ratio} [facility] Serum or plasma anion gap de terminationon 05-31-2023 Anion gap [Moles/Vol] 13.7 mmol/L [facility] Serum or plasma total choles terol/high density lipoprotein (HDL) cholesterol mass robyn 05-31-2023 Cholesterol.total/Ch olesterol in HDL [Mass ratio] 4.6 {ratio} [facility] Comment on above: 3.3 - 4.4 [...] 6 month appointment. wants JAYDA done at [facility]. orders faxed to [facility] patients appt was rescheduled to 08/20/22. pt aware to have testing done prior. Patient cancelled august appointment and has not rescheduled. diagnosis is not trackable Normal [facility] CT LUNG CANCER SCREENINGon 0 [...] by: HAIR DIETZ Date: 2022-06-30 14:46 Normal [facility] NM STRESS/REST MULTIon 06-21 NM STRESS/REST MULTI Patient: SUMMER SNOW Exam Date: 06/21/2022 : 1960 Gender:F Ordering : DR BRANDT MCNAMARA M.D. Admission #: [id number] Family : DR SON IRIZARRY D.O. Order #: [id number] CLICK HERE TO VIEW EXAM RADIOLOGY REPORT [...] Dietz MD on 06/25/2022 at 09:33 Normal [facility] Lab Reportson 06-01-2022 Lab Reports [id number] Normal [facility] ECHOCARDIO M/2D COMPLETEon 0 05-31-2022 ECHOCARDIO M/2D COMPLETE Patient: PAM SNOW Exam Date: 05/31/2022 : 1960 Gender:F Ordering : DR BRANDT MCNAMARA M.D. Admission #: [id number] Family : Order #: [id number] CLICK HERE TO VIEW EXAM ECHOCARDIOGRAM REPORT [...] Brandt Mcnamara M.D. on 05/31/2022 at 22:12 [facility] Provider Letter [id number] Provider Letter [facility] May 29, 2022 PAM SNOW [address] [place] [address] PAM SNOW 1960 Dear Pam Snow , We have been trying to reach you with no success. It is important that you return our call upon receiving this letter. Also, at the time of your call, please provide us with your current information. Thank you for your prompt attention to this matter. Sincerely, [facility] [address] [facility] [place], [address] [facility] Provider Letter [facility] May 29, 2022 PAM SNOW [address] [facility] [place] [address] PAM SNOW S 1960 Dear Pam Snow , We have been trying to reach you with no success. It is important that you return our call regarding your _ upon receiving this letter. Also, at the time of your call, please provide us with your current information. Thank you for your prompt attention to this matter. Sincerely, [facility] [address] [place] [address] [place], [address] [facility] Lab Reportson 05-22-2022 Lab Reports [id number]:12 7 Normal [facility] Lab Reports [id number]:12 7 [facility] PROF CHEM 8 (BAS METB)on Anion gap [Moles/Vol] 11.0 mmol/L Normal [facility] Comment on above: Performed By: #### C KATYA, NA, CA, URIC, BUN, K, CO2, CL #### [facility] Laboratory [address] [place] [address] Dr. eCsar Francis Calcium [Mass/Vol] 9.4 mg/dL Normal 8.5-10.1 [facility] Comment on above: Performed By: #### C KATYA, NA, CA, URIC, BUN, K, CO2, CL #### [facility] [address] [place] [address] Dr. Cesar Francis Chloride [Moles/Vol] 101 mmol/L Normal 98-107 [facility] Comment on above: Performed By: #### C KATYA, NA, CA, URIC, BUN, K, CO2, CL #### [facility] [address] [place] [address] Dr. Cesar Francis CO2 [Moles/Vol] 28.3 mmol/L Normal 21.0-32.0 [facility] Comment on above: Performed By: #### C KATYA, NA, CA, URIC, BUN, K, CO2, CL #### [facility] [address] [place] [address] Dr. Cesar Francis Creatinine [Mass/Vol] 0.72 mg/dL Normal 0.55-1.02 [facility] Comment on above: Performed By: #### C KATYA, NA, CA, URIC, BUN, K, CO2, CL #### [facility] Laboratory [address] [address] [address] Cesar Francis EGFR-AF DJIBOUTIAN >60 Normal >=60 [facility] Comment on above: Performed By: #### C KATYA, NA, CA, URIC, BUN, K, CO2, CL #### [facility] [address] [address] [address] Cesar Francis EGFR-NON AF DJIBOUTIAN >60 Normal >=60 [facility] Comment on above: Performed By: #### C KATYA, NA, CA, URIC, BUN, K, CO2, CL #### [facility] [address] [place] [address] Dr. Cesar Francis Glucose [Mass/Vol] 92 mg/dL Normal 74-106 [facility] Comment on above: Performed By: #### C KATYA, NA, CA, URIC, BUN, K, CO2, CL #### [facility] [address] [address] [address] Cesar Francis Potassium [Moles/Vol] 3.3 mmol/L Critically low 3.5-5.1 [facility] Comment on above: Performed By: #### C KATYA, NA, CA, URIC, BUN, K, CO2, CL #### [facility] [address] [place] [address] Dr. Cesar Francis Sodium [Moles/Vol] 137 mmol/L Normal 136-145 [facility] Comment on above: Performed By: #### C KATYA, NA, CA, URIC, BUN, K, CO2, CL #### [facility] [address] [place] [address] Dr. Cesar Francis Urea nitrogen [Mass/Vol] 14.0 mg/dL Normal 7.0-18.0 [facility] Comment on above: Performed By: #### C KATYA, NA, CA, URIC, BUN, K, CO2, CL #### [facility] [address] [place] [address] Dr. Cesar Francis Urea nitrogen/Creatinine [Mass ratio] 19.4 mg/mg Normal [facility] Comment on above: Performed By: #### C KATYA, NA, CA, URIC, BUN, K, CO2, CL #### [facility] [address] [place] [address] Dr. Cesar Francis Reminderson 05-22-2022 Reminders - From: Amisha Scott To: EU - Recallmonet Whitfield; Sent: 12/07/2021 15:54:24 EDT Show up: 04/20/2022 15:53:00 EST Subject: JAYDA needed May 2022 Due Date/Time: 06/07/2022 15:53:00 EDT Reminder/Recall This pt needs Renal US prior to 06/07/[address] Whitfield in [place] - pt uses [facility]-pls verify this with pt called patient to verify if she would like orders sent to [facility], left msg on voicemail for her to call office. Patient called back I will send order over to [facility]. Normal [facility] PTH INTACTon 05-19-2022 PTH, Intact 22 pg/mL Normal 15-65 [facility] Comment on above: Performed By: #### C KATYA, NA, CA, URIC, BUN, K, CO2, CL #### [facility] [address] [place] [address] Dr. Cesar Francis BUNon 05-18-2022 Urea nitrogen [Mass/Vol] 16.0 mg/dL Normal 7.0-18.0 [facility] Comment on above: Performed By: #### C KATYA, NA, CA, URIC, BUN, K, CO2, CL #### [facility] [address] [place] [address] Dr. Cesar Francis CALCIUMon 05-18-2022 Calcium [Mass/Vol] 9.2 mg/dL Normal 8.5-10.1 [facility] Comment on above: Performed By: #### C KATAY, NA, CA, URIC, BUN, K, CO2, CL #### [facility] [address] [place] [address] Dr. Cesar Francis CHLORIDEon 05-18-2022 Chloride [Moles/Vol] 104 mmol/L Normal 98-107 [facility] Comment on above: Performed By: #### C KATYA, NA, CA, URIC, BUN, K, CO2, CL #### [facility] [address] [place] [address] Dr. Cesar Francis CO2on 05-18-2022 CO2 [Moles/Vol] 28.4 mmol/L Normal 21.0-32.0 [facility] Comment on above: Performed By: #### C KATYA, NA, CA, URIC, BUN, K, CO2, CL #### [facility] [address] [address] [address] Cesar Francis CREATININEon 05-18-2022 Creatinine [Mass/Vol] 0.63 mg/dL Normal 0.55-1.02 [facility] Comment on above: Performed By: #### C KATYA, NA, CA, URIC, BUN, K, CO2, CL #### [facility] [address] [address] [address] Cesar Francis EGFR-AF DJIBOUTIAN >60 Normal >=60 [facility] Comment on above: Performed By: #### C KATYA, NA, CA, URIC, BUN, K, CO2, CL #### [facility] [address] [place] [address] Dr. Cesar Francis EGFR-NON AF DJIBOUTIAN >60 Normal >=60 [facility] Comment on above: Performed By: #### C KATYA, NA, CA, URIC, BUN, K, CO2, CL #### [facility] [address] [place] [address] Dr. Cesar Francis MG MAMM SCREEN 3D ISAIAH CADon 05-18-2022 MG MAMM SCREEN 3D ISAIAH CAD Patient: PAM SNOW Exam Date: 05/18/2022 : 1960 Gender:F Ordering : DR DALE WILSON . Admission #: [id number] Family : RACHELLE WHITFIELD . Order #: [id number] CLICK HERE TO VIEW EXAM RADIOLOGY REPORT [...] lung cancer at age 54. LOCATION: [facility] BREAST COMPOSITION: Almost entirely fatty. [...] MD on 05/18/2022 at 09:16 Normal [facility] NAon 05-18-2022 Sodium [Moles/Vol] 140 mmol/L Normal 136-145 [facility] Comment on above: Performed By: #### C KATYA, NA, CA, URIC, BUN, K, CO2, CL #### [facility] [address] [address] [address] Cesar Francis POTASSIUMon 05-18-2022 Potassium [Moles/Vol] 2.7 mmol/L Critically low 3.5-5.1 [facility] Comment on above: Performed By: #### C KATYA, NA, CA, URIC, BUN, K, CO2, CL #### [facility] [address] [address] [address] Cesar Francis URIC ACID SERUMon 05-18-2022 Urate [Mass/Vol] 6.0 mg/dL Normal 2.6-6.0 [facility] Comment on above: Performed By: #### C KATYA, NA, CA, URIC, BUN, K, CO2, CL #### [facility] [address] [address] [address] Cesar Francis US KIDNEYSon 05-18-2022 US KIDNEYS EXAMINATION: US THALIA EYMonet HISTORY: Kidney stone COMPARISON: No relevant comparison [...] by: LIZET MALCOLM Date: 2022-05-18 08:47 Normal [facility] Formson 04-17-2022 Forms [id number]:12 7 Normal [facility] Reminderson 04-17-2022 Reminders - From: Yolanda Mauro To: Cristiane Grier; Sent: 12/07/2021 15:51:13 EDT Show up: 04/08/2022 14:51:00 EST Subject: LithoLink Due Date/Time: 05/08/2022 14:51:00 EST Reminder Message Patient needs LithoLink mailed to her prior to 6 month appointment. Litholink order faxed 04/17/22 Normal [facility] XR CHEST 2 Von 04-17-2022 [...] by: CHERRI HAMILTON Date: 2022-04-17 17:56 Normal [facility] CBC AUTO DIFFon 02-09-2022 BASO # 0.1 103/ul Normal 0.0-0.1 [facility] Comment on above: Performed By: #### C KATYA, NA, CA, URIC, BUN, K, CO2, CL #### [facility] [address] [place] [address] Dr. Cesar Francis Basophils/100 WBC (Bld) 2.3 % Critically high 0.2-2.0 [facility] Comment on above: Performed By: #### C KATYA, NA, CA, URIC, BUN, K, CO2, CL #### [facility] [address] [place] [address] Dr. Cesar Francis EO # 0.3 103/ul Normal 0.0-0.7 [facility] Comment on above: Performed By: #### C KATYA, NA, CA, URIC, BUN, K, CO2, CL #### [facility] [address] [place] [address] Dr. Cesar Francis Eosinophils/100 WBC (Bld) 4.1 % Normal 0.9-7.0 [facility] Comment on above: Performed By: #### C KATYA, NA, CA, URIC, BUN, K, CO2, CL #### [facility] [address] [place] [address] Dr. Cesar Francis Erythrocyte distribution width (RBC) [Ratio] 12.8 % Normal 11.0-15.0 [facility] Comment on above: Performed By: #### C KATYA, NA, CA, URIC, BUN, K, CO2, CL #### [facility] [address] [place] [address] Dr. Cesar Francis Hematocrit (Bld) [Volume fraction] 45.4 % Normal 36.0-48.0 [facility] Comment on above: Performed By: #### C KATYA, NA, CA, URIC, BUN, K, CO2, CL #### [facility] [address] [place] [address] Dr. Cesar Francis Hemoglobin (Bld) [Mass/Vol] 15.6 g/dL Normal 12.0-16.0 [facility] Comment on above: Performed By: #### C KATYA, NA, CA, URIC, BUN, K, CO2, CL #### [facility] [address] [place] [address] Dr. Cesar Francis IG # 0.01 10e3/ul Normal 0.00-0.03 [facility] Comment on above: Performed By: #### C KATYA, NA, CA, URIC, BUN, K, CO2, CL #### [facility] [address] [place] [address] Dr. Cesar Francis IG % 0.2 % Normal 0.0-0.5 [facility] Comment on above: Performed By: #### C KATYA, NA, CA, URIC, BUN, K, CO2, CL #### [facility] [address] [place] [address] Dr. Cesar Francis LYMPH # 1.6 103/ul Normal 1.2-3.8 [facility] Comment on above: Performed By: #### C KATYA, NA, CA, URIC, BUN, K, CO2, CL #### [facility] [address] [place] [address] Dr. Cesar Francis Lymphocytes/100 WBC (Bld) 26.2 % Normal 20.5-60.0 [facility] Comment on above: Performed By: #### C KATYA, NA, CA, URIC, BUN, K, CO2, CL #### [facility] [address] [place] [address] Dr. Cesar Francis MANUAL DIFF REQ NO Normal [facility] Comment on above: Performed By: #### C KATYA, NA, CA, URIC, BUN, K, CO2, CL #### [facility] [address] [place] [address] Dr. Cesar Francis MCH (RBC) [Entitic mass] 28.6 pg Normal 26.7-34.0 [facility] Comment on above: Performed By: #### C KATYA, NA, CA, URIC, BUN, K, CO2, CL #### [facility] [address] [place] [address] Dr. Cesar Francis MCHC (RBC) [Mass/Vol] 34.4 g/dL Normal 29.9-35.2 [facility] Comment on above: Performed By: #### C KATYA, NA, CA, URIC, BUN, K, CO2, CL #### [facility] [address] [place] [address] Dr. Cesar Francis MCV (RBC) [Entitic vol] 83.3 fL Normal 81.0-99.0 [facility] Comment on above: Performed By: #### C KATYA, NA, CA, URIC, BUN, K, CO2, CL #### [facility] [address] [place] [address] Dr. Cesar Francis MONO # 0.8 103/ul Normal 0.3-0.8 [facility] Comment on above: Performed By: #### C KATYA, NA, CA, URIC, BUN, K, CO2, CL #### [facility] [address] [place] [address] Dr. Cesar Francis Monocytes/100 WBC (Bld) 12.5 % Critically high 1.7-12.0 [facility] Comment on above: Performed By: #### C KATYA, NA, CA, URIC, BUN, K, CO2, CL #### [facility] [address] [place] [address] Dr. Cesar Francis NEUT # 3.3 103/ul Normal 1.4-6.5 [facility] Comment on above: Performed By: #### C KATYA, NA, CA, URIC, BUN, K, CO2, CL #### [facility] [address] [place] [address] Dr. Cesar Francis Neutrophils/100 WBC (Bld) 54.7 % Normal 43.0-75.0 [facility] Comment on above: Performed By: #### C KATYA, NA, CA, URIC, BUN, K, CO2, CL #### [facility] [address] [place] [address] Dr. Cesar Francis Platelet mean volume (Bld) [Entitic vol] 10.6 fL Normal 9.5-13.5 [facility] Comment on above: Performed By: #### C KATYA, NA, CA, URIC, BUN, K, CO2, CL #### [facility] [address] [address] [address] Cesar Francis PLT 275 103/ul Normal 150-450 [facility] Comment on above: Performed By: #### C KATYA, NA, CA, URIC, BUN, K, CO2, CL #### [facility] [address] [address] [address] Cesar Francis RBC 5.45 106/ul Critically high 4.20-5.40 [facility] Comment on above: Performed By: #### C KATYA, NA, CA, URIC, BUN, K, CO2, CL #### [facility] [address] [address] [address] Cesar Francis WBC 6.1 103/ul Normal 4.0-11.0 [facility] Comment on above: Performed By: #### C KATYA, NA, CA, URIC, BUN, K, CO2, CL #### [facility] [address] [place] [address] Dr. Cesar Francis LIPID PROFILEon 02-09-2022 CHOL-HDL RATIO NORM SEE BELOW Normal [facility] Comment on above: Result Comment: 3.3 - 4.4 LOW RISK 4.4 - 7.1 AVERAGE RISK 7.1 - 11.0 MODERATE RISK >11.0 HIGH RISK Performed By: #### C KATYA, NA, CA, URIC, BUN, K, CO2, CL #### [facility] [address] [address] [address] Cesar Francis Cholesterol [Mass/Vol] 241 mg/dL Critically high <=200 [facility] Comment on above: Performed By: #### C KATYA, NA, CA, URIC, BUN, K, CO2, CL #### [facility] [address] [address] [address] Cesar Francis Cholesterol in HDL [Mass/Vol] 66 mg/dL Critically high 40-60 [facility] Comment on above: Performed By: #### C KATYA, NA, CA, URIC, BUN, K, CO2, CL #### [facility] [address] [place] [address] Dr. Cesar Francis Cholesterol in LDL [Mass/Vol] 156.0 mg/dL Normal [facility] Comment on above: Performed By: #### C KATYA, NA, CA, URIC, BUN, K, CO2, CL #### [facility] [address] [address] [address] Cesar Francis Cholesterol.total/Ch olesterol in HDL [Mass ratio] 3.7 {ratio} Normal [facility] Comment on above: Performed By: #### C KATYA, NA, CA, URIC, BUN, K, CO2, CL #### [facility] [address] [address] [address] Cesar Francis HDL NORMAL > or = 60 mg/dl - LO W CARDIOVASCULAR RISK <40 mg/dl - HIGH CARDIOVASCULAR RISK Normal [facility] Comment on above: Performed By: #### C KATYA, NA, CA, URIC, BUN, K, CO2, CL #### [facility] [address] [address] [address] Cesar Francis LDL CALC NORMAL SEE BELOW Normal [facility] Comment on above: Result Comment: <100 mg/dl OPTIMAL 100 - 129 mg/dl NEAR OR ABOVE OPTIMAL 130 - 159 mg/dl BORDERLINE HIGH 160 - 189 mg/dl HIGH >190 mg/dl VERY HIGH Performed By: #### C KATYA, NA, CA, URIC, BUN, K, CO2, CL #### [facility] [address] [address] [address] Cesar Francis Triglyceride [Mass/Vol] 95 mg/dL Normal <=150 [facility] Comment on above: Performed By: #### C KATYA, NA, CA, URIC, BUN, K, CO2, CL #### [facility] [address] [address] [address] Cesar Francis VLDL CALC 19.0 mg/dL Normal [facility] Comment on above: Performed By: #### C KATYA, NA, CA, URIC, BUN, K, CO2, CL #### [facility] [address] [address] [address] Cesar Francis PROF 14(COMP METB)on 022 Albumin [Mass/Vol] 3.6 g/dL Normal 3.4-5.0 [facility] Comment on above: Performed By: #### C KATYA, NA, CA, URIC, BUN, K, CO2, CL #### [facility] [address] [place] [address] Dr. Cesar rFancis Albumin/Globulin [Mass ratio] 1.0 {ratio} Normal [facility] Comment on above: Performed By: #### C KATYA, NA, CA, URIC, BUN, K, CO2, CL #### [facility] [address] [place] [address] Dr. Cesar Francis ALP [Catalytic activity/Vol] 65 U/L Normal 46-116 [facility] Comment on above: Performed By: #### C KATYA, NA, CA, URIC, BUN, K, CO2, CL #### [facility] [address] [place] [address] Dr. Cesar Francis ALT [Catalytic activity/Vol] 31 U/L Normal 14-59 [facility] Comment on above: Performed By: #### C KATYA, NA, CA, URIC, BUN, K, CO2, CL #### [facility] [address] [place] [address] Dr. Cesar Francis Anion gap [Moles/Vol] 13.2 mmol/L Normal [facility] Comment on above: Performed By: #### C KATYA, NA, CA, URIC, BUN, K, CO2, CL #### [facility] [address] [place] [address] Dr. Cesar Francis AST [Catalytic activity/Vol] 21 U/L Normal 15-37 [facility] Comment on above: Performed By: #### C KATYA, NA, CA, URIC, BUN, K, CO2, CL #### [facility] [address] [place] [address] Dr. Cesar Francis Bilirubin [Mass/Vol] 0.5 mg/dL Normal 0.2-1.0 [facility] Comment on above: Performed By: #### C KATYA, NA, CA, URIC, BUN, K, CO2, CL #### [facility] [address] [address] [address] Cesar Francis Calcium [Mass/Vol] 9.0 mg/dL Normal 8.5-10.1 [facility] Comment on above: Performed By: #### C KATYA, NA, CA, URIC, BUN, K, CO2, CL #### [facility] [address] [address] [address] Cesar Francis Chloride [Moles/Vol] 101 mmol/L Normal 98-107 [facility] Comment on above: Performed By: #### C KATYA, NA, CA, URIC, BUN, K, CO2, CL #### [facility] [address] [address] [address] Cesar Francis CO2 [Moles/Vol] 29.5 mmol/L Normal 21.0-32.0 [facility] Comment on above: Performed By: #### C KATYA, NA, CA, URIC, BUN, K, CO2, CL #### [facility] [address] [address] [address] Cesar Francis Creatinine [Mass/Vol] 0.71 mg/dL Normal 0.55-1.02 [facility] Comment on above: Performed By: #### C KATYA, NA, CA, URIC, BUN, K, CO2, CL #### [facility] [address] [address] [address] Cesar Francis EGFR-AF DJIBOUTIAN >60 Normal >=60 [facility] Comment on above: Performed By: #### C KATYA, NA, CA, URIC, BUN, K, CO2, CL #### [facility] [address] [place] [address] Dr. Cesar Francis EGFR-NON AF DJIBOUTIAN >60 Normal >=60 [facility] Comment on above: Performed By: #### C KATYA, NA, CA, URIC, BUN, K, CO2, CL #### [facility] [address] [place] [address] Dr. Cesar Francis Globulin (S) [Mass/Vol] 3.5 g/dL Normal [facility] Comment on above: Performed By: #### C KATYA, NA, CA, URIC, BUN, K, CO2, CL #### [facility] [address] [place] [address] Dr. Cesar Francis Glucose [Mass/Vol] 102 mg/dL Normal 74-106 [facility] Comment on above: Performed By: #### C KATYA, NA, CA, URIC, BUN, K, CO2, CL #### [facility] [address] [place] [address] Dr. Cesar Francis Potassium [Moles/Vol] 3.7 mmol/L Normal 3.5-5.1 [facility] Comment on above: Performed By: #### C KATYA, NA, CA, URIC, BUN, K, CO2, CL #### [facility] [address] [place] [address] Dr. Cesar Francis Protein [Mass/Vol] 7.1 g/dL Normal 6.4-8.2 [facility] Comment on above: Performed By: #### C KATYA, NA, CA, URIC, BUN, K, CO2, CL #### [facility] [address] [place] [address] Dr. Cesar Francis Sodium [Moles/Vol] 140 mmol/L Normal 136-145 [facility] Comment on above: Performed By: #### C KATYA, NA, CA, URIC, BUN, K, CO2, CL #### [facility] [address] [place] [address] Dr. Cesar Francis Urea nitrogen [Mass/Vol] 28.0 mg/dL Critically high 7.0-18.0 [facility] Comment on above: Performed By: #### C KATYA, NA, CA, URIC, BUN, K, CO2, CL #### [facility] [address] [place] [address] Dr. Cesar Francis Urea nitrogen/Creatinine [Mass ratio] 39.4 mg/mg Normal [facility] Comment on above: Performed By: #### C KATYA, NA, CA, URIC, BUN, K, CO2, CL #### [facility] [address] [place] [address] Dr. Cesar Francis Screenson 12-08-2021 Screens [id number]:12 7 Normal [facility] Ambulatory Visit Summaryon 0 12-07-2021 Ambulatory Visit Summary PAM SNOW :1960 Visit Date:12/07/2021 Ambulatory Visit Instructions Your Diagnosis Kidney stone Tests Performed Urnls Dip Stick Auto w/o Microscopy POC 14650 XR Abdomen 1 View -- Results Pending [...] KELLY, Rachelle Monroe Where: [facility] Patient Educationon 12-08-19 Patient Education Urology [...] these instructions at home: Medicines ? Take lqkl-qvu-vsycmly and prescription medicines only as told by [...] 08/13/2008 Document Revised: 07/14/2019 Document Reviewed: 07/14/2019 BOARDZ Patient Education ? 2019 [employer] Urology Office/Clinic Noteon 12-07-2021 Urology Office/Clinic [...] mos KUB, JAYDA Patient Education Kidney Stones, Uvwu-qq-Xuqb I, Yolanda Mauro, personally scribed for Dr. [...] (07/16/2011), Cysto (more content not included)... Normal [facility] Comment on above: Result Comment: Elec tronically Signed By: Nahid KELLY, Rachelle Monroe\.br\Date and Time Signed: 12/07/21 16:44 EDT\.br\Electronically Co-Signed By: Yolanda Mauro\.br\Date and Time Co-Signed: 12/07/21 15:46 EDT Lab Reportson 10-18-2021 Lab Reports [id number]:12 7 Normal [facility] Lab Reportson 10-11-2021 Lab Reports [id number]:12 7 Normal [facility] Lab Reports [id number]#[id number]:12 7 Normal [facility] PTH INTACTon 10-10-2021 PTH, Intact 13 pg/mL Critically low 15-65 [facility] Comment on above: Performed By: #### C KATYA, NA, CA, URIC, BUN, K, CO2, CL #### [facility] [address] [place] [address] Dr. Cesar Francis BUNon 10-09-2021 Urea nitrogen [Mass/Vol] 11.0 mg/dL Normal 7.0-18.0 [facility] Comment on above: Performed By: #### C KATYA, NA, CA, URIC, BUN, K, CO2, CL #### [facility] [address] [place] [address] Dr. Cesar Francis CALCIUMon 10-09-2021 Calcium [Mass/Vol] 9.2 mg/dL Normal 8.5-10.1 [facility] Comment on above: Performed By: #### C KATYA, NA, CA, URIC, BUN, K, CO2, CL #### [facility] [address] [place] [address] Dr. Cesar Francis CHLORIDEon 10-09-2021 Chloride [Moles/Vol] 104 mmol/L Normal 98-107 [facility] Comment on above: Performed By: #### C KATYA, NA, CA, URIC, BUN, K, CO2, CL #### [facility] [address] [place] [address] Dr. Cesar Francis CO2on 10-09-2021 CO2 [Moles/Vol] 28.5 mmol/L Normal 21.0-32.0 [facility] Comment on above: Performed By: #### C KATYA, NA, CA, URIC, BUN, K, CO2, CL #### [facility] [address] [place] [address] Dr. Cesar Francis CREATININEon 10-09-2021 Creatinine [Mass/Vol] 0.83 mg/dL Normal 0.55-1.02 [facility] Comment on above: Performed By: #### C KATYA, NA, CA, URIC, BUN, K, CO2, CL #### [facility] [address] [place] [address] Dr. Cesar Francis EGFR-AF DJIBOUTIAN >60 Normal >=60 [facility] Comment on above: Performed By: #### C KATYA, NA, CA, URIC, BUN, K, CO2, CL #### [facility] [address] [place] [address] Dr. Cesar Francis EGFR-NON AF DJIBOUTIAN >60 Normal >=60 [facility] Comment on above: Performed By: #### C KATYA, NA, CA, URIC, BUN, K, CO2, CL #### [facility] [address] [place] [address] Dr. Cesar Francis NAon 10-09-2021 Sodium [Moles/Vol] 143 mmol/L Normal 136-145 [facility] Comment on above: Performed By: #### C KATYA, NA, CA, URIC, BUN, K, CO2, CL #### [facility] [address] [place] [address] Dr. Cesar Francis PHOSPHORUSon 10-09-2021 Phosphate [Mass/Vol] 2.7 mg/dL Normal 2.6-4.7 [facility] Comment on above: Performed By: #### C KATYA, NA, CA, URIC, BUN, K, CO2, CL #### [facility] [address] [address] [address] Cesar Francis URIC ACID SERUMon 10-09-2021 Urate [Mass/Vol] 5.8 mg/dL Normal 2.6-6.0 [facility] Comment on above: Performed By: #### C KATYA, NA, CA, URIC, BUN, K, CO2, CL #### [facility] [address] [place], [place] [address] Dr. Cesar Francis PROTIMEon 05-04-2017 INR Coag RelTime (PPP) 1.04 {INR} Normal 0.00-1.20 [facility] Comment on above: Order Comment[facility] for [facility]: NONE SPECIFIED Result Comment: Troy mmended therapeutic range is an INR of 2.0-3.0 exceptfor prevention of recurrent acute NM and mechanicalprosthetic heart valve where an INR of 2.5-3.5 isrecommended. Performed By: #### L 300.65140 ####Test performed at: [place] [address] PT SEC 11.0 seconds Normal 9.7-11.5 [facility] Comment on above: Order Comment: [facility] patient's anticoagulants for PT: NONE SPECIFIED Performed By: #### L 300.17372 ####Test performed at: [place] [address] CARDIAC CATHETERIZATIONon CARDIAC CATHETERIZATION PATIENT NAME: ANNELISE SNOW#: [id number]: ANNELISE SNOW#: [id number] OF PROCEDURE: 05/03/2017CARDIAC CATHHISTORY OF PRESENT ILLNESS: [...] was accessedwith a multipurpose needle and a 6-Moldovan sheath inserted. Selective coronaryarteriography was performed using 6-Moldovan JL4 and 6-Moldovan JR4 catheters.Left ventriculography was performed using a 6-Moldovan angled pigtail catheter.At the end of the [...] groove. [facility]: BEKA SNOW [facility] REC: [id number] ACCOUNT NUM: [id number]/[id number]: [place] [address] : [id number] [place] [address] ATTENDING PHY: Candice Torres MDCARDIAC CATHETERIZATIONPATIENT NAME: ELDON SNOWR#: [id number] contain any significant disease.LEFT VENTRICULOGRAM: The left ventricular injection reveals a normal size leftventricle with normal contractility and normal ejection fraction. There is noangiographic mitral regurgitation.FINAL DIAGNOSIS:1. CAD-luminal irregularities, left main trunk-patent stent in proximal LAD-60-70% mid point. Posterior descending qjfdzkibck-55-52% mid rightcoronary artery.RECOMMENDATION: The circumflex stent will [...] removed at anappropriate time on the floor. CANDICE TORRES, MICHAEL[facility]/[id number] 25D: 05/03/2017 13:24:11 E/S: Candice Torres MD05/07/17 0850Signature on [facility] PATIENT NAME: BEKA SNOW [facility] REC: [id number] ACCOUNT NUM: [id number]: [place] [address] : [id number] [place] [address] ATTENDING PHY: Candice Torres MDCARDIAC CATHETERIZATION Normal [facility] CBC W/DIFFon 05-03-2017 BASO ABS 0.1 K/uL Normal 0.0-0.2 [facility] Comment on above: Order Comment: CONSE RVATION Performed By: #### L 200.02545 ####Test performed at: [address] [address] Basophils/100 WBC Auto (Bld) 1.8 % Normal [facility] Comment on above: Order Comment: CONSE RVATION Performed By: #### L 200.05686 ####Test performed at: [address] [address] EOS ABS 0.2 K/uL Normal 0.0-0.5 [facility] Comment on above: Order Comment: CONSE RVATION Performed By: #### L 200.83316 ####Test performed at: [address] [address] Eosinophils/100 leukocytes 2.6 % Normal [facility] Comment on above: Order Comment: CONSE RVATION Performed By: #### L 200.20800 ####Test performed at: [address] [address] Erythrocyte distribution width Auto Ratio (RBC) 13.7 % Normal 11.5-14.5 [facility] Comment on above: Order Comment: CONSE RVATION Performed By: #### L 200.04421 ####Test performed at: [place] [address] Erythrocytes (RBC) 5.06 10*6/uL Normal 3.5-5.5 [facility] Comment on above: Order Comment: CONSE RVATION Performed By: #### L 200.66290 ####Test performed at: [place] [address] Erythrocytes (RBC) 0.000 10*6/uL Normal 0-0.012 [facility] Comment on above: Order Comment: CONSE RVATION Performed By: #### L 200.50989 ####Test performed at: [place] [address] Hematocrit (HCT) 42.6 % Normal 36.0-48.0 [facility] Comment on above: Order Comment: CONSE RVATION Performed By: #### L 200.97771 ####Test performed at: [place] [address] Hemoglobin mass conc (Bld) 14.1 g/dL Normal 12.0-15.0 [facility] Comment on above: Order Comment: CONSE RVATION Performed By: #### L 200.00067 ####Test performed at: [address] [address] IG % 0.3 % Normal [facility] Comment on above: Order Comment: CONSE RVATION Performed By: #### L 200.84049 ####Test performed at: [address] [address] IG ABS 0.02 K/uL Normal 0-0.05 [facility] Comment on above: Order Comment: CONSE RVATION Performed By: #### L 200.86957 ####Test performed at: [place] [address] Lymphocytes 1.5 10*3/uL Normal 1.2-3.5 [facility] Comment on above: Order Comment: CONSE RVATION Performed By: #### L 200.14187 ####Test performed at: [place] [address] Lymphocytes/100 leukocytes 20.2 % Normal [facility] Comment on above: Order Comment: CONSE RVATION Performed By: #### L 200.95615 ####Test performed at: [place] [address] MCH 27.9 pg Normal 25.4-34.6 [facility] Comment on above: Order Comment: CONSE RVATION Performed By: #### L 200.41256 ####Test performed at: [place] [address] MCHC mass conc (RBC) 33.1 g/dL Normal 31.5-36.5 [facility] Comment on above: Order Comment: CONSE RVATION Performed By: #### L 200.68382 ####Test performed at: [place] [address] MCV 84.2 fL Normal 79.0-98.0 [facility] Comment on above: Order Comment: CONSE RVATION Performed By: #### L 200.00646 ####Test performed at: [place] [address] MONO ABS 0.7 K/uL Normal 0.0-1.0 [facility] Comment on above: Order Comment: CONSE RVATION Performed By: #### L 200.14587 ####Test performed at: [address] [address] Monocytes/100 leukocytes 9.4 % Normal [facility] Comment on above: Order Comment: CONSE RVATION Performed By: #### L 200.51683 ####Test performed at: [address] [address] Neutrophils 4.8 10*3/uL Normal 1.4-6.6 [facility] Comment on above: Order Comment: CONSE RVATION Performed By: #### L 200.99130 ####Test performed at: [address] [address] Neutrophils/100 WBC Auto (Bld) 65.7 % Normal [facility] Comment on above: Order Comment: CONSE RVATION Performed By: #### L 200.97241 ####Test performed at: [address] [address] NRBC % 0.0 /100 WBC Normal 0-0.2 [facility] Comment on above: Order Comment: CONSE RVATION Performed By: #### L 200.15219 ####Test performed at: [address] [address] Platelet mean volume (PMV) 11.9 fL Normal 8.7-12.4 [facility] Comment on above: Order Comment: CONSE RVATION Performed By: #### L 200.58996 ####Test performed at: [address] [address] Platelets 207 10*3/uL Normal 140-440 [facility] Comment on above: Order Comment: CONSE RVATION Performed By: #### L 200.49403 ####Test performed at: [address] [address] WBC (Leukocytes) 7.2 10*3/uL Normal 3.9-11.0 [facility] Comment on above: Order Comment: CONSE RVATION Performed By: #### L 200.09002 ####Test performed at: [place] [address] COMP META PANELon 05-03-2017 Alanine aminotransferase (ALT) 17 U/L Normal 13-61 [facility] Comment on above: Order Comment: CONSE RVATIONIs patient fasting? UNKNOWN Performed By: #### L 500.26601, L500.85379, L500.00409, L500.85704 ####Test performed at: [place] [address] Albumin 3.4 g/dL Normal 3.4-5.0 [facility] Comment on above: Order Comment: CONSE RVATIONIs patient fasting? UNKNOWN Performed By: #### L 500.34959, L500.80336, L500.08262, L500.35941 ####Test performed at: [address] [address] ALK PHOS TOTAL 96 U/L Normal 45-[address] [facility] Comment on above: Order Comment: CONSE RVATIONIs patient fasting? UNKNOWN Performed By: #### L 500.12054, L500.53602, L500.20041, L500.33785 ####Test performed at: [place] [address] Aspartate aminotransferase (AST) 15 U/L Normal 15-37 [facility] Comment on above: Order Comment: CONSE RVATIONIs patient fasting? UNKNOWN Performed By: #### L 500.37007, L500.08441, L500.70535, L500.81729 ####Test performed at: [place] [address] BILI TOTAL 0.7 mg/dL Normal 0.2-1.0 [facility] Comment on above: Order Comment: CONSE RVATIONIs patient fasting? UNKNOWN Performed By: #### L 500.40199, L500.85818, L500.91808, L500.95591 ####Test performed at: [place] [address] Calcium 8.3 mg/dL Low 8.5-10.1 [facility] Comment on above: Order Comment: CONSE RVATIONIs patient fasting? UNKNOWN Performed By: #### L 500.27192, L500.31629, L500.59129, L500.67485 ####Test performed at: [place] [address] Chloride 108 mmol/L High 98-107 [facility] Comment on above: Order Comment: CONSE RVATIONIs patient fasting? UNKNOWN Performed By: #### L 500.25603, L500.55007, L500.83757, L500.61614 ####Test performed at: [place] [address] CO2 30 mmol/L Normal 21-32 [facility] Comment on above: Order Comment: CONSE RVATIONIs patient fasting? UNKNOWN Performed By: #### L 500.29959, L500.80001, L500.62670, L500.56576 ####Test performed at: [place] [address] Creatinine 0.648 mg/dL Normal 0.550-1.020 [facility] Comment on above: Order Comment: CONSE RVATIONIs patient fasting? UNKNOWN Performed By: #### L 500.35935, L500.62652, L500.33988, L500.40029 ####Test performed at: [place] [address] Glucose mass conc 94 mg/dL Normal 74-106 [facility] Comment on above: Order Comment: CONSE RVATIONIs patient fasting? UNKNOWN Performed By: #### L 500.05449, L500.58381, L500.62089, L500.51036 ####Test performed at: [place] [address] Potassium molar conc 4.2 mmol/L Normal 3.5-5.1 [facility] Comment on above: Order Comment: CONSE RVATIONIs patient fasting? UNKNOWN Performed By: #### L 500.52810, L500.06505, L500.51231, L500.65572 ####Test performed at: [place] [address] Protein 6.4 g/dL Normal 6.4-8.2 [facility] Comment on above: Order Comment: CONSE RVATIONIs patient fasting? UNKNOWN Performed By: #### L 500.00094, L500.45474, L500.23784, L500.13733 ####Test performed at: [place] [address] Sodium 142 mmol/L Normal 136-145 [facility] Comment on above: Order Comment: CONSE RVATIONIs patient fasting? UNKNOWN Performed By: #### L 500.07707, L500.73658, L500.70165, L500.83958 ####Test performed at: [place] [address] Urea nitrogen 10 mg/dL Normal 7-18 [facility] Comment on above: Order Comment: CONSE RVATIONIs patient fasting? UNKNOWN Performed By: #### L 500.72330, L500.27609, L500.27221, L500.89764 ####Test performed at: [place] [id number] Cardiology Progress Noteon 0 05-03-2017 Cardiology Progress Note [facility] Pt Name: DONNA SNOW[address] MR#: [id number], [place] [address] ACCT: [id number] NOTE - Cardiology : 59Service Date: 05/04/17 1131NAME: ANNELISE SNOW#: [id number] OF SERVICE: 05/04/2017CARDIOLOGY PROGRESS NOTESUBJECTIVE: Mrs. Snow [...] me with jason 1 month. CANDICE TORRES, [facility]/[id number] 35D: 05/04/2017 11:31:37 eSign Date and TimeSteele,Candice Blanca MD Signature on File 05/04/17 1156 Normal [facility] EKGon 05-03-2017 EKG Acquired on 05/03/19 18 0957Vent. Rate : 055 BPM Atrial Rate : 055 BPMP-R Int : 188 ms QRS Dur : 080 msQT Int : 396 ms P-R-T Axes : 058 062 055 degreesQTc Int : 378 msSinus bradycardiaOtherwise normal ECGNo previous ECGs availableConfirmed by CANDICE TORRES MD ([id number]) on 05/04/2017 11:16:47 AMReferred By: Confirmed By:CANDICE TORRES [id number] 2017 [facility] PT NAME: ANNELISE SNOW#: [id number] [place] [address] ACCT: [id number]: 59EKG REPORT Normal [facility] EST. CREAT CLRon 05-03-2017 Creatinine 104.424 ML/MIN Normal [facility] Comment on above: Order Comment: CONSE RVATIONIs patient fasting? UNKNOWN Result Comment: This result is an ESTIMATED blood creatinine clearance valuewhich is derived from the patient age, sex, weight, andprevious blood creatinine result. Performed By: #### L 500.79309, L500.84185, L500.47280, L500.88447 ####Test performed at: [place] [address] GFR ESTIMATEon 05-03-2017 IF AMER > 60 Normal > 60 [facility] Comment on above: Order Comment: CONSE RVATIONIs patient fasting? UNKNOWN Result Comment: eGFR (Estimated GFR) Units of measure:mL/min/1.73 meters sq.*CALCULATION REVISED 12/28/2014;IDMS-traceable MDRD equationeGFR is derived from the reexpressed MDRD Study equationusing the following parameters: serum creatinine, age,gender and race. An eGFR<60 mL/min/1.73m2 for >3 monthsis consistent with chronic kidney disease. Refer to KDOQIguidelines for clinical interpretation. Performed By: #### L 500.91875, L500.49741, L500.17250, L500.43828 ####Test performed at: [place] [address] IF non-AFR AMER > 60 Normal > 60 [facility] Comment on above: Order Comment: CONSE RVATIONIs patient fasting? UNKNOWN Performed By: #### L 500.49906, L500.75184, L500.29900, L500.87627 ####Test performed at: [place] [address] LIPID PROFILEon 05-03-2017 Cholesterol 255 mg/dL High <200 [facility] Comment on above: Order Comment: CONSE RVATIONIs patient fasting? UNKNOWN Result Comment: <200 mg/dL (Desirable) 200-240 mg/dL (Borderline) >240 mg/dL (High Risk) Performed By: #### L 500.02022, L500.69315, L500.57941, L500.33199 ####Test performed at: [place] [address] HDL Cholesterol 51 mg/dL Normal 40-60 [facility] Comment on above: Order Comment: CONSE RVATIONIs patient fasting? UNKNOWN Performed By: #### L 500.24377, L500.04042, L500.48271, L500.01433 ####Test performed at: [place] [address] LDL Cholesterol 188 mg/dL High 60-130 [facility] Comment on above: Order Comment: CONSE RVATIONIs patient fasting? UNKNOWN Performed By: #### L 500.91653, L500.47868, L500.31669, L500.34377 ####Test performed at: [place] [address] Triglyceride 99 mg/dL Normal <150 [facility] Comment on above: Order Comment: CONSE RVATIONIs patient fasting? UNKNOWN Result Comment: <150 mg/dL (Normal) 150-199 mg/dL (Borderline) 200-499 mg/dL (High) >500 mg/dL (Very High) Performed By: #### L 500.37061, L500.74458, L500.98022, L500.43188 ####Test performed at: [place] [id number] PROTIMEon 05-03-2017 INR Coag RelTime (PPP) 1.06 {INR} Normal 0.00-1.20 [facility] Comment on above: Order Comment: CONSE RVATIONList patient's anticoagulants for PT: HEPARIN Result Comment: [place] mmended therapeutic range is an INR of 2.0-3.0 exceptfor prevention of recurrent acute NM and mechanicalprosthetic heart valve where an INR of 2.5-3.5 isrecommended. Performed By: #### L 300.40655 ####Test performed at: [address] [address] PT SEC 11.2 seconds Normal 9.7-11.5 [facility] Comment on above: Order Comment: MIGUEL A RVATIONList patient's anticoagulants for PT: HEPARIN Performed By: #### L 300.72307 ####Test performed at: [address] [address] Vital Signs Date Time Vital Sign Value Performing Clinician Arti cotton 06-12-2024 09:55-0400 Diastolic blood pressure 69 mm[Hg] Son Ball DO Work Phone: [facility] 06-12-2024 09:55-0400 Heart rate 66 /min Son Ball DO Work Phone: [facility] 06-12-2024 09:55-0400 Respiratory rate 16 /min Son Ball DO Work Phone: [facility] 06-12-2024 09:55-0400 SaO2% (BldA) [Mass fraction] 95 % Son Ball DO Work Phone: [facility] 06-12-2024 09:55-0400 Systolic blood pressure 116 mm[Hg] Son Ball DO Work Phone: [facility] 06-12-2024 07:53-0400 Body height 165.1 cm Son Ball DO Work Phone: [facility] 06-12-2024 07:53-0400 Body weight 70.3 kg Son Ball DO Work Phone: [facility] 06-11-2024 08:37-0400 Body height 165.1 cm [facility] 06-11-2024 08:37-0400 Body mass index (BMI) [Ratio] 28.3 kg/m2 [facility] 06-11-2024 08:37-0400 Body weight 77.22 kg [facility] 06-11-2024 08:37-0400 Diastolic blood pressure 74 mm[Hg] [facility] 06-11-2024 08:37-0400 Heart rate 61 /min [facility] 06-11-2024 08:37-0400 Respiratory rate 12 /min [facility] 06-11-2024 08:37-0400 Systolic blood pressure 127 mm[Hg] [facility] 12-20-2023 09:47-0400 Body height 165.1 cm [facility] 12-20-2023 09:47-0400 Body mass index (BMI) [Ratio] 27.7 kg/m2 [facility] 12-20-2023 09:47-0400 Body weight 75.52 kg [facility] 12-20-2023 09:47-0400 Diastolic blood pressure 77 mm[Hg] [facility] 12-20-2023 09:47-0400 Heart rate 68 /min [facility] 12-20-2023 09:47-0400 Respiratory rate 12 /min [facility] 12-20-2023 09:47-0400 Systolic blood pressure 127 mm[Hg] [facility] 08-15-2023 09:13-0400 Body height 165.1 cm [facility] 08-15-2023 09:13-0400 Body mass index (BMI) [Ratio] 26.6 kg/m2 [facility] 08-15-2023 09:13-0400 Body weight 72.74 kg [facility] 08-15-2023 09:13-0400 Diastolic blood pressure 69 mm[Hg] [facility] 08-15-2023 09:13-0400 Heart rate 60 /min [facility] 08-15-2023 09:13-0400 Respiratory rate 12 /min [facility] 08-15-2023 09:13-0400 Systolic blood pressure 118 mm[Hg] [facility] 06-05-2023 08:38-0400 Body height 165.1 cm [facility] 06-05-2023 08:38-0400 Body mass index (BMI) [Ratio] 26.8 kg/m2 [facility] 06-05-2023 08:38-0400 Body weight 73.02 kg [facility] 06-05-2023 08:38-0400 Diastolic blood pressure 76 mm[Hg] [facility] 06-05-2023 08:38-0400 Heart rate 73 /min [facility] 06-05-2023 08:38-0400 Respiratory rate 12 /min [facility] 06-05-2023 08:38-0400 Systolic blood pressure 124 mm[Hg] [facility] 06-19-2021 14:55-0400 Blood Pressure Location Rachelle Lue [facility] 06-19-2021 14:55-0400 Diastolic blood pressure 78 mm[Hg] Rachelle Lue [facility] 06-19-2021 14:55-0400 Heart rate 78 /min Rachelle Lue [facility] 06-19-2021 14:55-0400 Respiratory rate 16 /min Rachelle Lue [facility] 06-19-2021 14:55-0400 Systolic blood pressure 115 mm[Hg] Rachelle Lue [facility] Encounters Encounter Date Encounter Type Care Provider Facility Start: 06-12-2024 Non-patient / Non-visit Benjam in Ball DO Work Phone: [facility] Work Phone: Start: 06-12-2024 End: 06-12-2024 Admission to same day surgery center Son Ball DO Work Phone: [facility] Work Phone: Start: 06-12-2024 End: 06-12-2024 ambulatory Son Ball DO Work Phone: [facility] Work Phone: Start: 06-11-2024 End: 06-11-2024 ambulatory [facility] Work Phone: Start: 06-11-2024 End: 06-11-2024 Encounter for general adult medical examination without abnormal findings [facility] Start: 06-11-2024 End: 06-11-2024 Patient encounter procedure [facility] Work Phone: Start: 01-29-2024 End: 01-30-2024 ambulatory [facility] Start: 12-20-2023 End: 12-20-2023 ambulatory [facility] Work Phone: Start: 12-20-2023 End: 12-20-2023 Patient encounter procedure [facility] Work Phone: Start: 11-19-2023 Non-patient / Non-visit [facility] Physician [facility] [place] Work Phone: Start: 10-14-2023 End: 10-14-2023 ambulatory NADIA REAL-BRADEN Not Available Start: 09-30-2023 End: 09-30-2023 ambulatory RUFINO Corrales APLING Not Available Start: 09-09-2023 End: 09-09-2023 ambulatory DALE WILSON Not Available Start: 09-04-2023 End: 09-04-2023 ambulatory RUFINO MALDONADO Not Available Start: 08-28-2023 End: 08-28-2023 Evaluation and management of inpatient BACILIO Pratt YIN [facility] Start: 08-28-2023 End: 08-28-2023 Evaluation and management of inpatient LORRAINE Pratt [facility] Start: 08-15-2023 End: 08-15-2023 ambulatory [facility] Work Phone: Start: 08-15-2023 End: 08-15-2023 Patient encounter procedure [facility] Physician [facility] Work Phone: Start: 08-07-2023 End: 08-07-2023 ambulatory [facility] Start: 08-07-2023 End: 08-07-2023 Encounter for preprocedural cardiovascular examination [facility] Start: 08-01-2023 Encounter for other preprocedural examination [facility] Start: 08-01-2023 End: 08-01-2023 ambulatory LORRAINE Pratt [facility] Start: 07-30-2023 End: 07-30-2023 ambulatory LORRAINE RAYA Not Available Start: 07-22-2023 End: 07-22-2023 ambulatory LORRAINE RAYA Not Available Start: 07-16-2023 End: 07-16-2023 ambulatory LORRAINE RAYA Not Available Start: 06-05-2023 End: 06-05-2023 ambulatory [facility] Work Phone: Start: 06-05-2023 End: 06-05-2023 Encounter for general adult medical examination without abnormal findings [facility] Start: 06-05-2023 End: 06-05-2023 Patient encounter procedure [facility] Physician [facility] Work Phone: Start: 05-31-2023 Non-patient / Non-visit [facility] Physician [facility] [place] Work Phone: Start: 05-08-2023 Non-patient / Non-visit [facility] Work Phone: Start: 05-08-2023 Non-patient / Non-visit [facility] Work Phone: Start: 05-07-2023 End: 05-07-2023 ambulatory ABI Angle GIBBS Not Available Start: 04-30-2023 End: 04-30-2023 ambulatory LORRAINE RAYA Not Available Start: 04-09-2023 End: 04-09-2023 ambulatory LORRAINE Terence FARHANA Not Available Start: 04-01-2023 End: 04-01-2023 ambulatory ABI Angle GIBBS Not Available Start: 03-26-2023 Patient encounter procedure [facility] Start: 03-18-2023 End: 03-18-2023 ambulatory ABI GIBBS Not Available Start: 08-20-2022 ambulatory Rachelle Whitfield Facility:[facility] Start: 06-30-2022 End: 07-01-[address] HAIR DIETZ Facility:[facility] Start: 06-21-2022 End: 06-22-[address] HAIR DIETZ Facility:[facility] Start: 06-20-2022 ambulatory BRANDT MCNAMARA Facili ty:[facility] Start: 06-09-2022 ambulatory BRANDT MCNAMARA Facili ty:[facility] Start: 05-31-2022 End: 06-01-2022 ambulatory BRANDT VICENTERBBHARGAVI Facility:[facility] Start: 05-22-2022 End: 05-23-2022 ambulatory RACHELLE WHITFIELD . Facility:[facility] Start: 05-18-2022 End: 05-19-2022 ambulatory RACHELLE WHITFIELD . Facility:[facility] Start: 04-17-2022 End: 04-18-[address] SON IRIZARRY Facility:[facility] Start: 02-15-2022 Encounter for genera l adult medical examination without abnormal findings DR SON IRIZARRY [facility] Start: 02-09-2022 End: 02-10-[address] SON IRIZARRY Facility:[facility] Start: 02-09-2022 End: 02-10-2022 Encounter for general adult medical examination without abnormal findings DR SON IRIZARRY Facility:[facility] Start: 12-07-2021 End: 12-08-2021 ambulatory Rachelle M. Lue Facility:[facility] Start: 12-07-2021 End: 12-07-2021 Patient encounter procedure Rachelle Whitfield [facility] Start: 10-09-2021 End: 10-10-2021 ambulatory RACHELLE WHITFIELD . Facility: Start: 06-19-2021 End: 06-19-2021 Patient encounter procedure Rachelle Whitfield [facility] Start: 05-03-2017 End: 05-04-2017 Evaluation and management of inpatient Family Physician Unavailable Facility:[facility] Procedures Date Procedure Procedure Detail Performing Clinician Start: 06-12-2024 Colonoscopy Son B all DO Work Phone: Start: 05-27-2018 Cystoscopy Rachelle Lue Start: 12-03-2017 [...] Lue Comment on above: x2 stents Rachelle Lue Plan of Treatment Date Care Activity Detail Author Start: 06-12-2024 [facility] Start: 06-05-[address] [facility] Work Phone: Patient Education Hemorrhoids Co nette polyps [facility] Work Phone: [facility] Immunizations Immunization Date Immunization Notes Care Provider Fa cility NEGATED: Highlighted row has not occurred!03-18-2019 influenza virus vaccine, live, attenuated, for intranasal use Rachelle Lue [facility] Payers Date Payer Category Payer Private Health Insurance [id number] 1960 Self-pay [id number] 1960 Unknown [id number] 1960 Unknown [id number] 2.16.84 0.1.329702.3.579.2.593 1959 Unknown [id number] 2.16.84 0.1.692153.3.579.2.593 1959 Unknown [id number] 2.16.84 0.1.043452.3.579.2.593 1959 Unknown [id number] 2.16.84 0.1.863007.3.579.2.593 1959 Unknown [id number] 2.16.84 0.1.368182.3.579.2.593 1959 Unknown [id number] 2.16.84 0.1.481745.3.579.2.593 1959 Unknown [id number] 2.16.84 0.1.051389.3.579.2.593 1959 Unknown [id number] 2.16.84 0.1.529288.3.579.2.593 1959 Unknown [id number] 2.16.84 0.1.356581.3.579.2.593 1959 Unknown [id number] 2.16.84 0.1.210779.3.579.2.593 1959 Unknown [id number] 2.16.84 0.1.189003.3.579.2.593 1959 Unknown [id number] 2.16.8 40.1.722856.3.579.2.727 1959 Unknown [id number] 2.16.8 40.1.729603.3.579.2.727 1959 Unknown [id number] 2.16.8 40.1.958527.3.579.2.1286 1959 Unknown [id number] 2.16.8 40.1.843777.3.579.2.128 1959 Unknown [id number] 2.16.8 40.1.400521.3.579.2.128 1959 Unknown [id number] 2.16.8 40.1.584519.3.579.2.128 1959 Unknown [id number] 2.16.8 40.1.979412.3.579.2.128 1959 Unknown [id number] 2.16.8 40.1.419691.3.579.2.128 1959 Unknown [id number] 2.16.84 0.1.140553.3.579.2.1258 1959 Unknown [id number] 2.16.84 0.1.805771.3.579.2.1258 1959 Unknown [id number] 2.16.84 0.1.822066.3.579.2.1258 1959 Unknown [id number] 2.16.84 0.1.180220.3.579.2.1258 1959 Unknown [id number] 2.16.84 0.1.399456.3.579.2.1258 1959 Unknown [id number] 2.16.84 0.1.608148.3.579.2.1258 1959 Unknown [id number] 2.16.84 0.1.707862.3.579.2.1258 1959 Unknown [id number] 2.16.84 0.1.475041.3.579.2.1258 1959 Unknown [id number] 2.16.84 0.1.176468.3.579.2.1258 1959 Unknown [id number] 2.16.84 0.1.021414.3.579.2.1259 1959 Unknown [id number] 2.16.84 0.1.354571.3.579.2.1259 1959 Unknown [id number] 2.16.84 0.1.151670.3.579.2.1259 1959 Unknown [id number] 2.16.84 0.1.852394.3.579.2.1259 1959 Unknown [id number] 2.16.840 .1.625333.3.579.2.1259 Self-pay Self Pay [id number] Social History Date Type Detail Facility Start: 06-19-2021 End: 06-12-2024 Tobacco smoking status Ex-smoker (finding) [facility] Sex Assigned At Female [facility] Start: 1960 Sex Assigned At Female F [facility] Start: 06-11-2024 End: 06-12-2024 Sex Female (finding) [facility] Goals Date Patient Goal Desired Activity /State Functional Status Date Assessment Result Facility 12-07-2021 Functional Status N/A [facility] Clinical Notes 06-19-2021 to 06-12-2024 Note Date & Type Note Facility 06-12-2024 Procedure note [facility] 06-12-2024 History and physi omi note [facility] 06-11-2024 Evaluation note Diagnosis Onset Date Resolution ASHD (arteriosclerotic heart disease) acute June 11, 2024 8:19am Chronic bronchitis, simple acute June 11, 2024 8:19am Elevated cholesterol acute Apr2024 8:19am GERD (gastroesophageal reflux disease) acute June 11, 2024 8:19am Hypertension acute June 11, 2 025 8:19am Nicotine addiction acute June 11, 2024 8:19am Pulmonary nodule acute Rosina 3r d, 2025 8:19am Screening for colon cancer noneactive June 11, 2024 8:19am Screening mammogram for breast cancer noneactive June 11, 2024 8:19am Wellness examination noneactive Apri 2024 8:19am [facility] Work Phone: [phone] 942-842411-20-2024 NoteUT Cardiology - [facility] Subjective Pam Snow is a 64 [...] Recurrent sinus infections Coronary artery disease of [place] artery of [place] heart with stable angina pectoris (CMS/HCC) Statin [...] bronchitis, simple (CMS/HCC) GERD (gastroesophageal reflux disease) 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 Allergies Allergies Allergen Reactions Jchaqvo-Bny-Dix Reductase Inhibitors Unknown Medications Current Outpatient Medications: [...] 1,000 mcg/mL injection, , Disp: , Rfl: phrmdgdorci-mdpxptjsj-rdmvjvxl (Trelegy El (more content not included)... [facility]05-29-2024 NoteUT Cardiology - [facility] Subjective Pam Snow is a 63 y.o. year old female patient being seen for CAD, statin intolerance, and stable angina. She needs cleared for shoulder surgery, scheduled 08/[address] Raya. She had EKG last week at [facility]. 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 She has significant hyperlipidemia and is [...] Judgment: Judgment normal. Allergies Allergies Allergen Reactions [place]-Atq-Mbu Reductase Inhibitors Unknown Medications Current Outpatient Medications: aspirin 81 mg EC tablet, Take 81 mg by mouth in the morning., Disp: , Rfl: buPROPion XL (Wellbutrin XL) 300 mg 24 hr tablet, , Disp: , Rfl: cyanocobalamin (Vitamin B-12) 1,000 mcg/mL injection, , Disp: , Rfl: oajkyadqlka-hjxsirpzo-ipkdlfbx (Trelegy Ellipta) 100-62.5-25 mcg blister with device, 1 puff 1 (one) time each day at the same time., Disp: , Rfl: hydroCHLOROthiazide (HYDRODiuril) 25 mg ta (more content not included)... [facility]09-29-2022 Hospital Discharge instructions Patient Education 12/07/2021 15:35:55 Kidney Stones, Jrcg-kd-Shqr Kidney Stones Kidney stones are rock-like masses [...] Follow these instructions at home: Medicines Take ageq-vrg-qprglof and prescription medicines only as told by [...] 08/13/2008 Document Revised: 07/14/2019 Document Reviewed: 07/14/2019 [employer] Patient Education 2020 [employer]. Follow Up Care 06/19/2021 15:23:52 With:Nahid KELLY, WILLOW Little, URO Address: When: Unknown [facility] 04-11-2022 Hospital Discharge instructions Patient Education 06/19/2021 15:19:44 [...] about 300 mg of calcium at each meal.Foods that contain 200 500 mg of calcium [...] Talk to your dietitian about how much calciumis recommended for you. Shopping Buy plenty of [...] the table and allow each person to addhis or her own salt to taste. Use [...] fish, if told by your dietitian. To dothis: ?Limit the number of times you have [...] include: ?Spinach. ?Rhubarb. ?Beets. ?Potato chips and lithuanian fries. ?Nuts. If you regularly take a diuretic medicine, make sure to eat at least 1 2 fruits or vegetables high in potassium each day. These include: ?Avocado. ?Banana. ?[place], prune, carrot, or tomato juice. ?Baked potato. [...] fish. Salted or cured meats. Deli meats. Hotdogs. Sausages. Dairy Cheese. Beverages Regular soft drinks. Regular vegetable juice. Seasonings and other foods Seasoning blends with salt. Salad dressings. Canned soups. Soy sauce. Ketchup. Barbecue sauce. Canned pasta sauce. Casseroles. Pizza. Lasagna. Frozen meals. Potato chips. Moldovan fries. Summary You can reduce your risk of kidney stones by making changes to your diet. The most important thing you can do is drink enough fluid. You should drink enough fluid to keep your urine clear or pale yellow. Ask your health care provider or dietitian how much protein from animal sources you should eat eachday, and also how much salt and calcium you should have each day. This information is not intended to replace advice given to you by your health care provider. Make sure you discuss any questions you have with your health care provider. Document Released: 06/22/2011 Document Revised: 06/17/2019 Document Reviewed: 02/05/2017 [employer] Patient Education 2020 [employer]. Follow Up Care 05/15/2021 15:10:22 With:Nahid KELLY, WILLOW Little, URO Address: [facility] [address] [address]- When:09/18/2021 Comments:w/24hr urine [facility] evaluation + Plan note Future Appointments Appointment Date:10/02/2021 03:15:00 PM Scheduled Provider:Rachelle Whitfield MD Location: Appointment Type:URO Office Visit [facility] evaluation + Plan note Future Appointments Appointment Date:06/07/2022 03:15:00 PM Scheduled Provider:Rachelle Whitfield MD Location: Appointment Type:URO Office Visit [facility] evaluation note* Diagnosis Onset Date Resolution Status ASHD (arteriosclerotic heart disease) acute Chronic bronchitis, simple a cute Elevated cholesterol acute GERD (gastroesophageal reflux disease) acute Hypertension acute Screening for colon cancer n oneactive Screening mammogram for breast cancer noneactive Wellness examination noneact [facility] Work Phone: evaluation note* Diagnosis Onset Date Resolution Status ASHD [...] Evaluation note* Diagnosis Onset Date Resolution Status Admit Date ASHD (arteriosclerotic heart disease) acute June 11, 2024 8:19am Chronic bronchitis, simple acute June 11, 2024 8:19am Elevated cholesterol acute Apri l 2024 8:19am GERD (gastroesophageal reflu x disease) acute June 11, 2024 8:19am Hypertension acute June 11, 2 025 8:19am Nicotine addiction acute June 11, 2024 8:19am Pulmonary nodule acute June 8:19am Screening for colon cancer noneactiv e June 11, 2024 8:19am Screening mammogram for erick st cancer noneactive June 11, 2024 8:19am Wellness examination noneactive Apr2024 8:19am [facility] Work Phone: History and physical note Author Fam Fernandez [facility] Note Date/Time June 12, 2024 9:08 am [facility] [address] [place] [address] Gastroenterology H&P Signed Patient: Pam Snow MR#: [id number] : 1960 Acct:[id number] Age/Sex: 64 / F Adm Date: 5 Loc: Room: Type: [facility] Attending Dr: Fam Fernandez MD Copies to: DO Fam Mcnamara MD~ Date of Service: 06/12/2024 HISTORY & PHYSICAL: Patient's history with special attention to the cardiovascular, pulmonary systems and the current problem was reviewed with the patient immediately prior to the procedure. Present medications and doses reviewed in the EMR. Allergies and pertinent laboratory tests were also reviewedat this time in the EMR. The physical examination, as below, was then performed. Indication, assessment and HPI: 64-year-old female with a history of colon polyps presents for surveillance colonoscopy Family history of GI malignancy? no PHYSICAL EXAMINATION Mouth and Pharynx : moist mucus membranes, normal dentition Eyes: EOM intact b/l, normal sclera Pulmonary: normal respiratory effort, able to speak in complete sentences Neurological: alert and oriented x3, moves all extremities Skin: non-jaundiced, warm and dry Abdomen: non-distended, normal to inspection Psych: Mental status and mood grossly normal REVIEW OF SYSTEMS Constitutional: Denies malaise, fevers Cardiovascular: Denies chest pain, palpitations Respiratory: Denies shortness of breath, wheezing Gastrointestinal: Per HPI Genitourinary: Denies dysuria, polyuria Musculoskeletal: Denies joint swelling, joint stiffness Neurological: Denies numbness, tingling Integumentary: Denies rashes, skin lesions Endocrine: Denies fatigue, weight loss Written informed consent obtained from the patient. Risks (including but not limited to perforation, infection, bloating, bleeding, need for emergent surgeryand loss of life), benefits and alternatives explained and questions answered. The patient verbalized understanding. Based on history patient is an appropriate candidate for the procedure. Fam Fernandez MD Documented By: Fam Fernandez MD 06/12/24 0907 Signed By: <Electronically signed by Fam Fernandez MD> 06/12/24 0908 [facility] Work Phone: Hospital course Narrative No data available for this section [facility] Hospital Discharge instructions Additional Instructions DISCHARGE INSTRUCTIONS FOR COLONOSCOPY WHAT TO EXPECT: - You may feel full, gassy or cramping after your procedure. In some cases, this may be from a few hours to a day. Walking may help relieve the discomfort. - If you have polyp(s) removed you may note some minor bloody discharge after your first bowel movements. - You should begin to recover from anesthesia within 1 hour of the procedure, however may feel groggy for the next 24 hours. DO's AND DON'Ts: - Call your doctor right away if you have a hard abdomen, severe pain, are passing lots of bright red blood or clots. - Call your doctor if you develop any rashes, hives or difficulty breathing. - Let your doctor know if you have not had a bowel movement by 3 days after your procedure. - If you take 81 mg aspirin for your heart it is safe to resume this medication. - If you take other blood thinner medications your doctor will instruct you when these can safely be resumed. - Do NOT drive for 24 hours. - Do NOT operate machinery such as power tools, lawn mowers, snow blowers, sewing machines, etc. for 24 hours. - Avoid alcoholic beverages and drugs for allergies, nerves, or sleep. - Do NOT stay alone. Do NOT leave your child unattended. - Do NOT make important personal or business decisions or sign any legal documents. - Eat solid foods and drink liquids in smaller amounts than usual until normal appetite returns. If you should experience an upset stomach, liquids high in sugar content (soda, Jose-Aid, non-acid juices) are recommended. - You can resume normal activities tomorrow. FOLLOW UP & RECOMMENDATIONS: - Dr. Fernandez's office will notify you of your results and when you need a repeat colonoscopy. -Notify the doctor if you have any problems. -Follow up with PCP. -Office number [phone].[facility] Work Phone: Progress note No data available for this section [facility] Summary Purpose Family History Relationship Condition Age at Onset Recorded Date/T rudy father Unknown Relationship Condition Age at Onset Recorded Date/T rudy father Malignant neoplasm of lung Unknown Advance Directives Advance Directive Response Recorded Date/ Time Advance Directives No January 9:20pm Chief Complaint and Reason for Visit Chief Complaint Amb Documentation Amb Documentation Wellness Reason for Visit ASHD (arteriosclerot ic heart disease) Chronic bronchitis, simple Elevated cholesterol GERD (gastroesophageal reflux disease) Hypertension Screening for colon cancer Screening mammogram for breast cancer Wellness examination Chief Complaint Wellness pre op clearance - farhana Reason for Visit ASHD (arteriosclerot ic heart disease) Chronic bronchitis, simple Elevated cholesterol GERD (gastroesophageal reflux disease) Hypertension Screening for colon cancer Screening mammogram for breast cancer Wellness examination ASHD (arteriosclerotic heart disease) Chronic bronchitis, simple Elevated cholesterol Hypertension Preop exam for internal medicine Chief Complaint Insomnia Reason for Visit Fatigue Primary insomnia Chief Complaint Admit Date wellness June 11, 2024 8:19 am Reason for Visit Admit Date ASHD (arteriosclerotic heart disease) Ap [facility] 2024 8:19am Chronic bronchitis, simple June 11 8:19am Elevated cholesterol June 11, 2024 8:1 9am GERD (gastroesophageal reflux disease) A pril 2024 8:19am Hypertension June 11, 2024 8:19 am Nicotine addiction June 11, 2024 8:19 am Pulmonary nodule June 11, 2024 8:19 am Screening for colon cancer June 11 8:19am Screening mammogram for breast cancer Ap [facility] 2024 8:19am Wellness examination June 11, 2024 8:1 9am Chief Complaint Admit Date wellness June 11, 2024 8:19 am hx of colon polyps June 12, 2024 7:34 am hx of colon polyps June 12, 2024 9:07 am Additional Source Comments INFORMATION SOURCE (unrecogn ized section and content) DATE CREATED AUTHOR 08/30/2017 [facility] DATE CREATED AUTHOR AUTHOR'S ORGANIZ ATION 07/07/2022 [facility] DATE CREATED AUTHOR AUTHOR'S ORGANIZ ATION 09/26/2022 [facility] DATE CREATED AUTHOR AUTHOR'S ORGANIZ ATION 08/29/2023 [facility] DATE CREATED AUTHOR AUTHOR'S ORGANIZ ATION 10/16/2023 [facility] EPIC DATE CREATED AUTHOR AUTHOR'S ORGANIZ ATION 02/01/2024 [facility] Care Team (unrecognized sect ion and content) Team Status: Active Member Role Status Dates Son Irizarry DO Primary Care Provider Active Team Status: Inactive Member Role Status Dates Son Irizarry DO Primary Care Provide r, Attending Provider Active Start: June 11, 2024 End: June 11, 2024 Team Status: Active Member Role Status Dates [...] December 20, 2023 End: December 20, 2023 Team Status: Inactive Member Role Status Dates Son Irizarry DO Primary Care Provider Active Start: June 12, 2024 End: June 12, 2024 Fam Fernandez MD Attending Provider Active S tart: June 12, 2024 End: June 12, 2024 Team Status: Active Member Role Status Dates Son Irizarry Primary Care Provider Active Start: June 12, 2024 Fam Fernandez MD Attending Provider, Other Provide r Active Start: June 12, 2024 Goals (unrecognized section and content) Goals may [...] BE BASED ON THE PRIMARY CLINICAL RECORDS. [facility] [employer] provides no warranty or guarantee of the accuracy or completeness of information in this document.
[2024-06-13 07:34] LABS: Estimated Average Glucose 108 mg/dL; Glycohemoglobin A1C 5.4 % (4.5-6.2)
[2024-06-13 08:25] LABS: Thyroid Stimulating Hormone 0.426 uIU/mL (0.358-3.740)
== END 2024-06-13 06:40 | disposition home or self-care (01) ==
LOC: LAB 06:39
PROVIDERS: PCP Internal Medicine; Visit Provider Internal Medicine
DX: Z00.00 Encounter for general adult medical examination without abnormal findings (principal); Z83.3 Family history of diabetes mellitus
CPT/HCPCS: 36415; 83036; 84443

== ENCOUNTER 2024-12-16 10:34 | Outpatient (OUT) | payer OTHER, SELFPAY ==
--- NOTE | 2024-12-16 | XR_ITS ---
The [address] [address] Patient Name: SVETLANA BURNETT MRN: [id number] date: 1960 Sex: F Assigned Patient Location: [facility] Current Patient Location: [facility] Accession/Order Number: [id number] Exam Date: 12/16/2024 06:40 Report Date: 12/16/2024 07:59 At the request of: LATASHA ROLLINS MD Procedure: XR abdomen 1V SINGLE VIEW ABDOMEN COMPARISON: Ultrasound 05/18/2022 and KUB 05/05/2019 CLINICAL DATA: Follow-up kidney stones Supine views of the abdomen and pelvis were obtained. There is air within the stomach. There is mild air and stool within the colon as well as nondistended small bowel. Both kidneys are partially obscured. There is still a 4 mm calcified stone at the lower pole of the right kidney. There are similar calcifications at the mid to upper pole on the left measuring up to 8 mm. No suspect ureteral stones are present. No soft tissue masses are seen. There are degenerative changes at the spine. XR/XR abdomen 1V IMPRESSION: CONTINUED BILATERAL NEPHROLITHIASIS. Impression dictated by: Laine Torres M.D. 12/16/2024 7:59 AM Dictation Location: [place] [address] Electronically authenticated by: [id number] Y Date: 12/16/2024 07:59
--- OUTSIDE RECORDS SUMMARY | 2024-12-18 11:46 | XMS_ITS | CCD ---
Author Organization [facility] Care Team Providers Care Dehydrogenation Supervisor Name Role Phone Unavailable, Family Physician Unavailable [...] Unavailable RODRIGO, DR FONG Primary Care Unavailable YOAN .MARLENE [...] CHERRI HAMILTON Consulting Unavailable LUE ., RACHELLE M Attending Unavailable LUE ., RACHELLE M Admitting Unavailable RODRIGO, DR FONG Primary Care Unavailable GOLD, DR LIZET Powell Consulting Unavailable LUE ., RACHELLE Reyes Consulting Unavailable KATIE ., DR HUNTER Attending Unavailable KATIE ., DR HUNTER Admitting Unavailable MIRELA, DR HAIR Hale Consulting Unavailable KATIE ., DR HUNTER Consulting Unavailable MOUKADALIA, BRANDT Attending Unavailable MOUKARBEL, BRANDT Admitting Unavailable RODRIGO, DR FONG Primary Care Unavailable JOSEPHINE, LORRAINE Pratt Referring Unavailable BALL, [...] Referring Unavailable YIN, BACILIO Pratt Attending Unavailable RODRIGO, SON Draper Primary Care Unavailable GIBBS, ABI Barbour Attending Unavailable GIBBS, ABI Barbour Referring Unavailable GIBBS, ABI Barbour Attending Unavailable JOSEPHINE, LORRAINE Pratt Attending Unavailable JOSEPHINE, LORRAINE Pratt Attending Unavailable JOSEPHINE, LORRAINE Pratt Attending Unavailable GIBBS, ABI Barbour Referring Unavailable JOSEPHINE, LORRAINE Pratt Attending Unavailable JOSEPHINE, LORRAINE Pratt Referring Unavailable JOSEPHINE, LORRAINE Pratt Attending Unavailable APLING, RUFINO Corrales Attending Unavailable KATIE, DALE Attending Unavailable APLING, RUFINO Corrales Attending Unavailable DAUCH-BRADENNADIA Attending Unavail able APLING, RUFINO Corrales Referring Unavailable MOUKADALIA, BRANDT Attending Unavailable MOUKARBEL, BRANDT Attending Unavailable Son Irizarry DO Primary Care Provider Fam Fernandez MD Attending Provider [phone] Fam Fernandez Attending Unavailable Fam Fernandez Admitting Unavailable Son Irizarry Primary Care Unavailable Rachelle Whitfield Attending Unavailable Allergies Allergy Classification Reported Allergen(s) Allergy Type Date of Onset Reaction(s) Facility (3 sources) Hmg-Coa Reductase Inhibitors (Statins); Translations: [statins] Drug allergy Unknown (qualifier value) [facility] (4 sources) black walnut pollen extract; Translations: [GOOJLVG-RHZ-ZD A REDUCTASE INHIBITORS] Drug Allergy 4 [facility] (3 sources) Ypcgowq-DNF-UeW Reductase Inhibitor; Translations: [Pgivpmn-BMZ-Mf A Reductase Inhibitor] Propensity to adverse reactions 5 Muscle Pain [facility] Medications Current Medications Medication Drug Class(es) Dates [...] Refills(s) 0 Start Date: 01/20/20 Status: Ordered Bddnryvxayx-Lxtlmrgsg-Qgoyht er (5 sources) Anticholinergic, Corticosteroid, beta2-Adrenergic Agonist Start: 06-04-2023 Tacudljwznu-Havjlhrwh-Fhwmbx er (Trelegy Ellipta) 100-62.5-25 mcg blister with [...] BID, # 180 tab(s), Refills(s) 3, Pharmacy: [facility], 162, cm, 03/16/20 8:23:00 EST, [...] 1,000 mcg/mL solution Active 0 .ROUTE .COMPLEX 3 April 13, 2024 10:21am INJECT 1ML INTRAMUSCULARLY [...] Drug Class(es) Dates Sig (Normalized) Sig (Original) [id number] 200 actuat albuterol 0.09 mg/actuat metered dose [...] disease (16 sources) Atherosclerotic heart disease of [place] coronary artery without angina pectoris; Translations: [Coronary [...] conditions (not mental disorders or infectious disease) (14 sources) Encounter for screening mammogram for malignant [...] Test Name Value Interpretation Reference Range Facility Jason 06-12-2024 L ----- Specimen: [id number] Received: 06/12/24 Status: LOTUS Love Num: [id number] Spec Type: Surgical Subm Dr: Fam Fernandez MD Tissues: A Colon Biopsy (DESCENDING COLON POLYPS) B Colon Biopsy (SIGMOID COLON POLYP) Procedures: KY/Ana, Gross/Micro L4/2 Age/ Patient Sex Location Account Attending Physician Pam Snow 64/F [id number] Fam Fernandez MD SPEC NUM: RECD: 06/12/24 STATUS: LOTUS LOVE NUM: [id number] MADELYN: 06/12/[address] [facility] [address]: Fam Fernandez MD ENTERED: 06/12/[address] [facility] [address]: LEONA TYPE: Surgical DEPT: S ENTERED BY: [id number] RECV BY: [id number] ORDERED: HE/4, Gross/Micro L4/2 ORDERED: HE/4, Gross/Micro L4/2 Pathological Diagnosis A. Descending colon, biopsies: Fragments of hyperplastic polyp. B. Sigmoid colon, biopsies: Fragments of tubular adenoma with no high-grade dysplasia Fragments of colonic mucosa with surface hyperplastic change. Clinical Information History of polyps Gross Description Part A is received in formalin labeled with the patients name, date of , and descending colon are mosqueda-reardon, focally erythematous, friable polypoid fragments, up 1.2 x 1 x 0.2 cm in aggregate. The specimen is filtered and entirely submitted in a single cassette. (1, ns, A) JG Part B is received in formalin labeled with the patients name, date of , and sigmoid colon are 3 mosqueda-reardon, focally erythematous, friable polypoid fragments, 0.2, 0.4 and 0.6 cm in greatest dimension The largest polyp is inked black,, the midsized polyp is inked green, and the smallest polyp is inked blue. The largest polyp is trisected and entirely submitted in a single cassette with the 2 smaller polyps intact. (1, ns, B)JG Specimen: [id number] Received: 06/12/24 Status: LOTUS Love Num: [id number] Spec Type: Surgical Subm Dr: Fam Fernandez MD Tissues: A Colon Biopsy (DESCENDING COLON POLYPS) B Colon Biopsy (SIGMOID COLON POLYP) Procedures: HE/4, Gross/Micro L4/2 Patient: Pam Snow [id number] (Continued) Signed (signature on file) Sridevi Pratt MD 06/15/2418 Normal [facility] Office Visiton 01-29-2024 Follow-up visit [id number] Kell Snow 1960 F Date Provider Department Center 01/29/2024 BRANDT BENJAMIN Family History Problem Relation Age of Onset Other Mother Coronary artery disease Sister Peripheral vascular disease Sister Coronary artery disease Brother Heart failure Brother Atrial fibrillation Brother Family Status - Relation Status Age at Mother Sister Brother Level of Service:40398 CT OFFICE/OUTPATIENT ESTABLISHED LOW MDM 20 MIN Normal [facility] 36on 11-20-2023 36 Regarding liver and lipid panel performed on 11/19/2023: MD Marilu Robles MA Her LDL is down to 75 from 204. This is great result. I can see her in 3 months. Patient made aware. Scheduled her an apt for Jan 2024. Normal [facility] Cholesterol in LDL Calc [Mas s/Vol]on 11-19-2023 Cholesterol in LDL [Mass/Vol] 75.6 mg/dL [facility] Comment on above: <100 mg/dl [id number] 0-129 mg/dl NEAR OR ABOVE [id number] mg/dl BORDERLINE [id number] mg/dl HIGH>190 mg/dl VERY HIGH Cholesterol in VLDL Calc [Ma ss/Vol]on 11-19-2023 Cholesterol in VLDL [Mass/Vol] 12.4 mg/dL [facility] Globulin Calc (S) [Mass/Vol] on 11-19-2023 Globulin (S) [Mass/Vol] 3.1 g/dL [facility] Laboratory - Chemistry and C hemistry - challengeon 11-19-2023 Albumin [Mass/Vol] 3.4 g/dL 3.4-5.0 [facility] ALP [Catalytic activity/Vol] 52 U/L 46-116 [facility] ALT [Catalytic activity/Vol] 32 U/L 14-59 [facility] AST [Catalytic activity/Vol] 21 U/L 15-37 [facility] Bilirubin [Mass/Vol] 0.6 mg/dL 0.2-1.0 [facility] Bilirubin.direct [Mass/Vol] 0.1 mg/dL 0.0-0.2 [facility] Cholesterol [Mass/Vol] 144 mg/dL <=200 [facility] Cholesterol in HDL [Mass/Vol] 56 mg/dL 40-60 [facility] Comment on above: > or =60 mg/dl - LOW CARDIOVASCULAR RISK<40 mg/dl - HIGH CARDIOVASCULAR RISK Protein [Mass/Vol] 6.5 g/dL 6.4-8.2 [facility] Triglyceride [Mass/Vol] 62 mg/dL <=150 [facility] Serum or plasma albumin/glob ulin mass ratioon 11-19-2023 Albumin/Globulin [Mass ratio] 1.1 {ratio} [facility] Serum or plasma total choles terol/high density lipoprotein (HDL) cholesterol mass robyn 11-19-2023 Cholesterol.total/Ch olesterol in HDL [Mass ratio] 2.6 {ratio} [facility] Comment on above: 3.3 - 4.4 LOW RISK4. 4 - 7.1 AVERAGE RISK7.1 - 11.0 MODERATE RISK>11.0 HIGH RISK Office Visiton 08-07-2023 Follow-up visit [id number] Kell Snow 1960 F Date Provider Department Center 08/07/2023 BRANDT BENJAMIN Family History Problem Relation Age of Onset Other Mother Coronary artery disease Sister Peripheral vascular disease Sister Coronary artery disease Brother Heart failure Brother Atrial fibrillation Brother Family Status - Relation Status Age at Mother Sister Brother Level of Service:56493 CT OFFICE/OUTPATIENT ESTABLISHED MOD MDM 30 MIN Normal [...] Basophils (Bld) [#/Vol] 0.1 10 3/uL 0.0-0.1 [facility] Basophils/100 WBC Auto (Bld) on 05-31-2023 Basophils/100 WBC (Bld) 2.1 % 0.2-2.0 [facility] Cholesterol in LDL Calc [Mas s/Vol]on 05-31-2023 Cholesterol in LDL [Mass/Vol] 204.0 mg/dL [facility] Comment on above: <100 mg/dl [id number] 0-129 mg/dl NEAR OR ABOVE [id number] mg/dl BORDERLINE [id number] mg/dl HIGH>190 mg/dl VERY HIGH Cholesterol in VLDL Calc [Ma ss/Vol]on 05-31-2023 Cholesterol in VLDL [Mass/Vol] 13.2 mg/dL [facility] Eosinophils/100 WBC Auto (Bl d)on 05-31-2023 Eosinophils/100 WBC (Bld) 5.2 % 0.9-7.0 [facility] Erythrocyte distribution wid th Auto (RBC) [Ratio]on 05-31-2023 Erythrocyte distribution width (RBC) [Ratio] 12.9 % 11.0-15.0 [facility] Estimated glomerular filtrat ion rate (GFR) non- Americanon 05-31-2023 GFR/1.73 sq M.predicted among non-blacks MDRD (S/P/Bld) [Vol rate/Area] mL/min/{1.73_m2} >=60 [facility] Globulin Calc (S) [Mass/Vol] on 05-31-2023 Globulin (S) [Mass/Vol] 3.6 g/dL [facility] Hematocrit Auto (Bld) [Volum e fraction]on 05-31-2023 Hematocrit (Bld) [Volume fraction] 44.0 % 36.0-48.0 [facility] Hemoglobin [Mass/volume] in Bloodon 05-31-2023 Hemoglobin (Bld) [Mass/Vol] 14.4 g/dL 12.0-16.0 [facility] Laboratory - Chemistry and C hemistry - challengeon 05-31-2023 Albumin [Mass/Vol] 3.4 g/dL 3.4-5.0 [facility] ALP [Catalytic activity/Vol] 78 U/L 46-116 [facility] ALT [Catalytic activity/Vol] 51 U/L 14-59 [facility] AST [Catalytic activity/Vol] 28 U/L 15-37 [facility] Bilirubin [Mass/Vol] 0.5 mg/dL 0.2-1.0 [facility] Calcium [Mass/Vol] 9.1 mg/dL 8.5-10.1 [facility] Chloride [Moles/Vol] 102 mmol/L 98-107 [facility] Cholesterol [Mass/Vol] 277 mg/dL <=200 [facility] Cholesterol in HDL [Mass/Vol] 60 mg/dL 40-60 [facility] Comment on above: > or =60 mg/dl - LOW CARDIOVASCULAR RISK<40 mg/dl - HIGH CARDIOVASCULAR RISK CO2 [Moles/Vol] 29.1 mmol/L 21.0-32.0 [facility] Creatinine [Mass/Vol] 0.76 mg/dL 0.55-1.02 [facility] GFR/1.73 sq M.predicted MDRD (S/P/Bld) [Vol rate/Area] mL/min/{1.73_m2} >=60 [facility] Glucose [Mass/Vol] 102 mg/dL 74-106 [facility] Potassium [Moles/Vol] 3.8 mmol/L 3.5-5.1 [facility] Protein [Mass/Vol] 7.0 g/dL 6.4-8.2 [facility] Sodium [Moles/Vol] 141 mmol/L 136-145 [facility] Triglyceride [Mass/Vol] 66 mg/dL <=150 [facility] Urea nitrogen [Mass/Vol] 21.0 mg/dL 7.0-18.0 [facility] Urea nitrogen/Creatinine [Mass ratio] 27.6 mg/mg [facility] Laboratory - Hematology and Cell countson 05-31-2023 Immature granulocytes/100 WBC (Bld) 0.2 % 0.0-0.5 [facility] Leukocytes [#/volume] correc johanna for nucleated erythrocytes in Blood by Automated counon 05-31-2023 WBC corrected for nucl RBC Auto (Bld) [#/Vol] 5.6 10 3/uL 4.0-11.0 [facility] Lymphocytes Auto (Bld) [#/Vo l]on 05-31-2023 Lymphocytes (Bld) [#/Vol] 1.7 10 3/uL 1.2-3.8 [facility] Lymphocytes/100 WBC Auto (Bl d)on 05-31-2023 Lymphocytes/100 WBC (Bld) 31.0 % 20.5-60.0 [facility] MCH Auto (RBC) [Entitic mass ]on 05-31-2023 MCH (RBC) [Entitic mass] 28.8 pg 26.7-34.0 [facility] MCHC Auto (RBC) [Mass/Vol]on 05-31-2023 MCHC (RBC) [Mass/Vol] 32.7 g/dL 29.9-35.2 [facility] MCV Auto (RBC) [Entitic vol] on 05-31-2023 MCV (RBC) [Entitic vol] 88.0 fL 81.0-99.0 [facility] Monocytes Auto (Bld) [#/Vol] on 05-31-2023 Monocytes (Bld) [#/Vol] 0.8 10 3/uL 0.3-0.8 [facility] Monocytes/100 WBC Auto (Bld) on 05-31-2023 Monocytes/100 WBC (Bld) 13.4 % 1.7-12.0 [facility] Neutrophils Auto (Bld) [#/Vo l]on 05-31-2023 Neutrophils (Bld) [#/Vol] 2.7 10 3/uL 1.4-6.5 [facility] Neutrophils/100 WBC Auto (Bl d)on 05-31-2023 Neutrophils/100 WBC (Bld) 48.1 % 43.0-75.0 [facility] No Panel Informationon 05-30 Eosinophils # (Auto) 0.3 10 3/uL 0.0-0.7 [facility] Immature Granulocyte # (Auto) 0.01 10 3/uL 0.00-0.03 [facility] Platelet mean volume Auto (B ld) [Entitic vol]on 05-31-2023 Platelet mean volume (Bld) [Entitic vol] 10.7 fL 9.5-13.5 [facility] Platelets Auto (Bld) [#/Vol] on 05-31-2023 Platelets (Bld) [#/Vol] 305 10 3/uL 150-450 [facility] RBC Auto (Bld) [#/Vol]on RBC (Bld) [#/Vol] 5.00 10 6/uL 4.20-5.40 [facility] Serum or plasma albumin/glob ulin mass ratioon 05-31-2023 Albumin/Globulin [Mass ratio] 0.9 {ratio} [facility] Serum or plasma anion gap de terminationon 05-31-2023 Anion gap [Moles/Vol] 13.7 mmol/L [facility] Serum or plasma total choles terol/high density lipoprotein (HDL) cholesterol mass robyn 05-31-2023 Cholesterol.total/Ch olesterol in HDL [Mass ratio] 4.6 {ratio} [facility] Comment on above: 3.3 - 4.4 LOW RISK4. 4 - 7.1 AVERAGE RISK7.1 - 11.0 MODERATE RISK>11.[address] LUNG CANCER SCREENINGon 0 06-30-2022 CT [...] by: HAIR DIETZ Date: 2022-06-30 14:46 Normal [facility] NM STRESS/REST MULTIon 06-21 NM STRESS/REST MULTI Patient: SUMMER SNOW Exam Date: 06/21/2022 : 1960 Gender:F Ordering : DR BRANDT MCNAMARA M.D. Admission #: [id number] Family : DR SON IRIZARRY D.O. Order #: [id number] CLICK HERE TO VIEW EXAM RADIOLOGY REPORT [...] Dietz MD on 06/25/2022 at 09:33 Normal [facility] ECHOCARDIO M/2D COMPLETEon 0 05-31-2022 ECHOCARDIO M/2D COMPLETE Patient: PAM SNOW Exam Date: 05/31/2022 : 1960 Gender:F Ordering : DR BRANDT MCNAMARA M.D. Admission #: [id number] Family : Order #: [id number] CLICK HERE TO VIEW EXAM ECHOCARDIOGRAM REPORT [...] Mcnamara M.D. on 05/31/2022 at 22:12 Normal [facility] PROF CHEM 8 (BAS METB)on Anion gap [Moles/Vol] 11.0 mmol/L Normal [facility] Comment on above: Performed By: #### C KATYA, NA, CA, URIC, BUN, K, CO2, CL #### [facility] [address] [place] [address] Dr. Cesar Francis Calcium [Mass/Vol] 9.4 mg/dL Normal 8.5-10.1 [facility] Comment on above: Performed By: #### C KATYA, NA, CA, URIC, BUN, K, CO2, CL #### [facility] [address] [place] [address] Dr. Cesar Francis Chloride [Moles/Vol] 101 mmol/L Normal 98-107 [facility] Comment on above: Performed By: #### C KATYA, NA, CA, URIC, BUN, K, CO2, CL #### [facility] [address] [place] [address] Dr. Cesar Francis CO2 [Moles/Vol] 28.3 mmol/L Normal 21.0-32.0 [facility] Comment on above: Performed By: #### C KATYA, NA, CA, URIC, BUN, K, CO2, CL #### [facility] [address] [place] [address] Dr. Cesar Francis Creatinine [Mass/Vol] 0.72 mg/dL Normal 0.55-1.02 [facility] Comment on above: Performed By: #### C KATYA, NA, CA, URIC, BUN, K, CO2, CL #### [facility] [address] [place] [address] Dr. Cesar Francis EGFR-AF IRANIAN >60 Normal >=60 [facility] Comment on above: Performed By: #### C KATYA, NA, CA, URIC, BUN, K, CO2, CL #### [facility] [address] [place] [address] Dr. Cesar Francis EGFR-NON AF IRANIAN >60 Normal >=60 [facility] Comment on above: Performed By: #### C KATYA, NA, CA, URIC, BUN, K, CO2, CL #### [facility] [address] [place] [address] Dr. Cesar Francis Glucose [Mass/Vol] 92 mg/dL Normal 74-106 [facility] Comment on above: Performed By: #### C KATYA, NA, CA, URIC, BUN, K, CO2, CL #### [facility] [address] [place] [address] Dr. Cesar Francis Potassium [Moles/Vol] 3.3 mmol/L Critically low 3.5-5.1 [facility] Comment on above: Performed By: #### C KATYA, NA, CA, URIC, BUN, K, CO2, CL #### [facility] [address] [address] [address] Cesar Francis Sodium [Moles/Vol] 137 mmol/L Normal 136-145 [facility] Comment on above: Performed By: #### C KATYA, NA, CA, URIC, BUN, K, CO2, CL #### [facility] [address] [place] [address] Dr. Cesar Francis Urea nitrogen [Mass/Vol] 14.0 mg/dL Normal 7.0-18.0 [facility] Comment on above: Performed By: #### C KATYA, NA, CA, URIC, BUN, K, CO2, CL #### [facility] [address] [place] [address] Dr. Cesar Francis Urea nitrogen/Creatinine [Mass ratio] 19.4 mg/mg Normal [facility] Comment on above: Performed By: #### C KATYA, NA, CA, URIC, BUN, K, CO2, CL #### [facility] [address] [place] [address] Dr. Cesar Francis PTH INTACTon 05-19-2022 PTH, Intact 22 pg/mL Normal 15-65 [facility] Comment on above: Performed By: #### C KATYA, NA, CA, URIC, BUN, K, CO2, CL #### [facility] [address] [place] [address] Dr. Ceasr Francis BUNon 05-18-2022 Urea nitrogen [Mass/Vol] 16.0 mg/dL Normal 7.0-18.0 [facility] Comment on above: Performed By: #### C KATYA, NA, CA, URIC, BUN, K, CO2, CL #### [facility] [address] [place] [address] Dr. Cesar Francis CALCIUMon 05-18-2022 Calcium [Mass/Vol] 9.2 mg/dL Normal 8.5-10.1 [facility] Comment on above: Performed By: #### C KATYA, NA, CA, URIC, BUN, K, CO2, CL #### [facility] [address] [place] [address] Dr. Cesar Francis CHLORIDEon 05-18-2022 Chloride [Moles/Vol] 104 mmol/L Normal 98-107 [facility] Comment on above: Performed By: #### C KATYA, NA, CA, URIC, BUN, K, CO2, CL #### [facility] [address] [place] [address] Dr. Cesar Francis CO2on 05-18-2022 CO2 [Moles/Vol] 28.4 mmol/L Normal 21.0-32.0 [facility] Comment on above: Performed By: #### C KATYA, NA, CA, URIC, BUN, K, CO2, CL #### [facility] [address] [place] [address] Dr. Cesar Francis CREATININEon 05-18-2022 Creatinine [Mass/Vol] 0.63 mg/dL Normal 0.55-1.02 [facility] Comment on above: Performed By: #### C KATYA, NA, CA, URIC, BUN, K, CO2, CL #### [facility] [address] [place] [address] Dr. Cesar Francis EGFR-AF IRANIAN >60 Normal >=60 [facility] Comment on above: Performed By: #### C KATYA, NA, CA, URIC, BUN, K, CO2, CL #### [facility] [address] [place] [address] Dr. Cesar Francis EGFR-NON AF IRANIAN >60 Normal >=60 [facility] Comment on above: Performed By: #### C KATYA, NA, CA, URIC, BUN, K, CO2, CL #### [facility] [address] [address] [address] Cesar Francis MG MAMM SCREEN 3D ISAIAH CADon 05-18-2022 MG MAMM SCREEN 3D ISAIAH CAD Patient: PAM SNOW Exam Date: 05/18/2022 : 1960 Gender:F Ordering : DR DALE WILSON . Admission #: [id number] Family : RACHELLE WHITFIELD . Order #: [id number] CLICK HERE TO VIEW EXAM RADIOLOGY REPORT [...] lung cancer at age 54. LOCATION: [facility] BREAST COMPOSITION: Almost entirely fatty. [...] Dietz MD on 05/18/2022 at 09:16 Normal [facility] NAon 05-18-2022 Sodium [Moles/Vol] 140 mmol/L Normal 136-145 [facility] Comment on above: Performed By: #### C KATYA, NA, CA, URIC, BUN, K, CO2, CL #### [facility] [address] [place], [place] [address] Dr. Cesar Francis POTASSIUMon 05-18-2022 Potassium [Moles/Vol] 2.7 mmol/L Critically low 3.5-5.1 [facility] Comment on above: Performed By: #### C KATYA, NA, CA, URIC, BUN, K, CO2, CL #### [facility] [address] [place], [place] [address] Dr. Cesar Francis URIC ACID SERUMon 05-18-2022 Urate [Mass/Vol] 6.0 mg/dL Normal 2.6-6.0 [facility] Comment on above: Performed By: #### C KATYA, NA, CA, URIC, BUN, K, CO2, CL #### [facility] [address] [place], [place] [address] Dr. Cesar Francis US KIDNEYSon 05-18-2022 US KIDNEYS EXAMINATION: US [facility] HISTORY: Kidney stone COMPARISON: No relevant [...] by: LIZET MALCOLM Date: 2022-05-18 08:47 Normal [facility] XR CHEST 2 Von 04-17-2022 XR [...] CHERRI HAMILTON Date: 2022-04-17 17:56 Normal [facility] CBC AUTO DIFFon 02-09-2022 BASO # 0.1 103/ul Normal 0.0-0.1 [facility] Comment on above: Performed By: #### C KATYA, NA, CA, URIC, BUN, K, CO2, CL #### [facility] [address] [place] [address] Dr. Cesar Francis Basophils/100 WBC (Bld) 2.3 % Critically high 0.2-2.0 [facility] Comment on above: Performed By: #### C KATYA, NA, CA, URIC, BUN, K, CO2, CL #### [facility] [address] [place] [address] Dr. Cesar Francis EO # 0.3 103/ul Normal 0.0-0.7 [facility] Comment on above: Performed By: #### C KATYA, NA, CA, URIC, BUN, K, CO2, CL #### [facility] [address] [place] [address] Dr. Cesar Francis Eosinophils/100 WBC (Bld) 4.1 % Normal 0.9-7.0 [facility] Comment on above: Performed By: #### C KATYA, NA, CA, URIC, BUN, K, CO2, CL #### [facility] [address] [place] [address] Dr. Cesar Francis Erythrocyte distribution width (RBC) [Ratio] 12.8 % Normal 11.0-15.0 [facility] Comment on above: Performed By: #### C KATYA, NA, CA, URIC, BUN, K, CO2, CL #### [facility] [address] [place] [address] Dr. Cesar Francis Hematocrit (Bld) [Volume fraction] 45.4 % Normal 36.0-48.0 [facility] Comment on above: Performed By: #### C KATYA, NA, CA, URIC, BUN, K, CO2, CL #### [facility] [address] [place] [address] Dr. Cesar Francis Hemoglobin (Bld) [Mass/Vol] 15.6 g/dL Normal 12.0-16.0 [facility] Comment on above: Performed By: #### C KATYA, NA, CA, URIC, BUN, K, CO2, CL #### [facility] [address] [place] [address] Dr. Cesar Francis IG # 0.01 10e3/ul Normal 0.00-0.03 [facility] Comment on above: Performed By: #### C KATYA, NA, CA, URIC, BUN, K, CO2, CL #### [facility] [address] [place] [address] Dr. Cesar Francis IG % 0.2 % Normal 0.0-0.5 [facility] Comment on above: Performed By: #### C KATYA, NA, CA, URIC, BUN, K, CO2, CL #### [facility] [address] [place] [address] Dr. Cesar Francis LYMPH # 1.6 103/ul Normal 1.2-3.8 [facility] Comment on above: Performed By: #### C KATYA, NA, CA, URIC, BUN, K, CO2, CL #### [facility] [address] [place] [address] Dr. Cesar Francis Lymphocytes/100 WBC (Bld) 26.2 % Normal 20.5-60.0 [facility] Comment on above: Performed By: #### C KATYA, NA, CA, URIC, BUN, K, CO2, CL #### [facility] [address] [place] [address] Dr. Cesar Francis MANUAL DIFF REQ NO Normal [facility] Comment on above: Performed By: #### C KATYA, NA, CA, URIC, BUN, K, CO2, CL #### [facility] [address] [place] [address] Dr. Cesar Francis MCH (RBC) [Entitic mass] 28.6 pg Normal 26.7-34.0 [facility] Comment on above: Performed By: #### C KATYA, NA, CA, URIC, BUN, K, CO2, CL #### [facility] [address] [place] [address] Dr. Cesar Francis MCHC (RBC) [Mass/Vol] 34.4 g/dL Normal 29.9-35.2 [facility] Comment on above: Performed By: #### C KATYA, NA, CA, URIC, BUN, K, CO2, CL #### [facility] [address] [place] [address] Dr. Cesar Francis MCV (RBC) [Entitic vol] 83.3 fL Normal 81.0-99.0 [facility] Comment on above: Performed By: #### C KATYA, NA, CA, URIC, BUN, K, CO2, CL #### [facility] [address] [place] [address] Dr. Cesar Francis MONO # 0.8 103/ul Normal 0.3-0.8 [facility] Comment on above: Performed By: #### C KATYA, NA, CA, URIC, BUN, K, CO2, CL #### [facility] [address] [place] [address] Dr. Cesar Francis Monocytes/100 WBC (Bld) 12.5 % Critically high 1.7-12.0 [facility] Comment on above: Performed By: #### C KATYA, NA, CA, URIC, BUN, K, CO2, CL #### [facility] [address] [place] [address] Dr. Cesar Francis NEUT # 3.3 103/ul Normal 1.4-6.5 [facility] Comment on above: Performed By: #### C KATYA, NA, CA, URIC, BUN, K, CO2, CL #### [facility] [address] [place] [address] Dr. Cesar Francis Neutrophils/100 WBC (Bld) 54.7 % Normal 43.0-75.0 [facility] Comment on above: Performed By: #### C KATYA, NA, CA, URIC, BUN, K, CO2, CL #### [facility] [address] [place] [address] Dr. Cesar Francis Platelet mean volume (Bld) [Entitic vol] 10.6 fL Normal 9.5-13.5 [facility] Comment on above: Performed By: #### C KATYA, NA, CA, URIC, BUN, K, CO2, CL #### [facility] [address] [place] [address] Dr. Cesar Francis PLT 275 103/ul Normal 150-450 [facility] Comment on above: Performed By: #### C KATYA, NA, CA, URIC, BUN, K, CO2, CL #### [facility] [address] [place] [address] Dr. Cesar Francis RBC 5.45 106/ul Critically high 4.20-5.40 [facility] Comment on above: Performed By: #### C KATYA, NA, CA, URIC, BUN, K, CO2, CL #### [facility] [address] [address] [address] Cesar Francis WBC 6.1 103/ul Normal 4.0-11.0 [facility] Comment on above: Performed By: #### C KATYA, NA, CA, URIC, BUN, K, CO2, CL #### [facility] [address] [place] [address] Dr. Cesar Francis LIPID PROFILEon 02-09-2022 CHOL-HDL RATIO NORM SEE BELOW Normal [facility] Comment on above: Result Comment: 3.3 - 4.4 LOW RISK 4.4 - 7.1 AVERAGE RISK 7.1 - 11.0 MODERATE RISK >11.0 HIGH RISK Performed By: #### C KATYA, NA, CA, URIC, BUN, K, CO2, CL #### [facility] [address] [place] [address] Dr. Cesar Francis Cholesterol [Mass/Vol] 241 mg/dL Critically high <=200 [facility] Comment on above: Performed By: #### C KATYA, NA, CA, URIC, BUN, K, CO2, CL #### [facility] [address] [place] [address] Dr. Cesar Francis Cholesterol in HDL [Mass/Vol] 66 mg/dL Critically high 40-60 [facility] Comment on above: Performed By: #### C KATYA, NA, CA, URIC, BUN, K, CO2, CL #### [facility] [address] [place] [address] Dr. Cesar Francis Cholesterol in LDL [Mass/Vol] 156.0 mg/dL Normal [facility] Comment on above: Performed By: #### C KATYA, NA, CA, URIC, BUN, K, CO2, CL #### [facility] [address] [address] [address] Cesar Francis Cholesterol.total/Ch olesterol in HDL [Mass ratio] 3.7 {ratio} Normal [facility] Comment on above: Performed By: #### C KATYA, NA, CA, URIC, BUN, K, CO2, CL #### [facility] [address] [address] [address] Cesar Francis HDL NORMAL > or = 60 mg/dl - LO W CARDIOVASCULAR RISK <40 mg/dl - HIGH CARDIOVASCULAR RISK Normal [facility] Comment on above: Performed By: #### C KATYA, NA, CA, URIC, BUN, K, CO2, CL #### [facility] [address] [place] [address] Dr. Cesar Francis LDL CALC NORMAL SEE BELOW Normal [facility] Comment on above: Result Comment: <100 mg/dl OPTIMAL 100 - 129 mg/dl NEAR OR ABOVE OPTIMAL 130 - 159 mg/dl BORDERLINE HIGH 160 - 189 mg/dl HIGH >190 mg/dl VERY HIGH Performed By: #### C KATYA, NA, CA, URIC, BUN, K, CO2, CL #### [facility] [address] [place] [address] Dr. Cesar Francis Triglyceride [Mass/Vol] 95 mg/dL Normal <=150 [facility] Comment on above: Performed By: #### C KATYA, NA, CA, URIC, BUN, K, CO2, CL #### [facility] [address] [address] [address] Cesar Francis VLDL CALC 19.0 mg/dL Normal [facility] Comment on above: Performed By: #### C KATYA, NA, CA, URIC, BUN, K, CO2, CL #### [facility] [address] [place] [address] Dr. Cesar Francis PROF 14(COMP METB)on 022 Albumin [Mass/Vol] 3.6 g/dL Normal 3.4-5.0 [facility] Comment on above: Performed By: #### C KATYA, NA, CA, URIC, BUN, K, CO2, CL #### [facility] [address] [place] [address] Dr. Cesar Francis Albumin/Globulin [Mass ratio] 1.0 {ratio} Normal [facility] Comment on above: Performed By: #### C KATYA, NA, CA, URIC, BUN, K, CO2, CL #### [facility] [address] [place] [address] Dr. Cesar Francis ALP [Catalytic activity/Vol] 65 U/L Normal 46-116 [facility] Comment on above: Performed By: #### C KATYA, NA, CA, URIC, BUN, K, CO2, CL #### [facility] [address] [place] [address] Dr. Cesar Francis ALT [Catalytic activity/Vol] 31 U/L Normal 14-59 [facility] Comment on above: Performed By: #### C KATYA, NA, CA, URIC, BUN, K, CO2, CL #### [facility] [address] [place] [address] Dr. Cesar Francis Anion gap [Moles/Vol] 13.2 mmol/L Normal [facility] Comment on above: Performed By: #### C KATYA, NA, CA, URIC, BUN, K, CO2, CL #### [facility] [address] [place] [address] Dr. Cesar Francis AST [Catalytic activity/Vol] 21 U/L Normal 15-37 [facility] Comment on above: Performed By: #### C KATYA, NA, CA, URIC, BUN, K, CO2, CL #### [facility] [address] [place] [address] Dr. Cesar Francis Bilirubin [Mass/Vol] 0.5 mg/dL Normal 0.2-1.0 [facility] Comment on above: Performed By: #### C KATYA, NA, CA, URIC, BUN, K, CO2, CL #### [facility] [address] [place] [address] Dr. Cesar Francis Calcium [Mass/Vol] 9.0 mg/dL Normal 8.5-10.1 [facility] Comment on above: Performed By: #### C KATYA, NA, CA, URIC, BUN, K, CO2, CL #### [facility] [address] [place] [address] Dr. Cesar Francis Chloride [Moles/Vol] 101 mmol/L Normal 98-107 [facility] Comment on above: Performed By: #### C KATYA, NA, CA, URIC, BUN, K, CO2, CL #### [facility] [address] [address] [address] Cesar Francis CO2 [Moles/Vol] 29.5 mmol/L Normal 21.0-32.0 [facility] Comment on above: Performed By: #### C KATYA, NA, CA, URIC, BUN, K, CO2, CL #### [facility] [address] [place] [address] Dr. Cesar Francis Creatinine [Mass/Vol] 0.71 mg/dL Normal 0.55-1.02 [facility] Comment on above: Performed By: #### C KATYA, NA, CA, URIC, BUN, K, CO2, CL #### [facility] [address] [place] [address] Dr. Cesar Francis EGFR-AF IRANIAN >60 Normal >=60 [facility] Comment on above: Performed By: #### C KAYTA, NA, CA, URIC, BUN, K, CO2, CL #### [facility] [address] [place] [address] Dr. Cesar Francis EGFR-NON AF IRANIAN >60 Normal >=60 [facility] Comment on above: Performed By: #### C KATYA, NA, CA, URIC, BUN, K, CO2, CL #### [facility] [address] [address] [address] Cesar Francis Globulin (S) [Mass/Vol] 3.5 g/dL Normal [facility] Comment on above: Performed By: #### C KATYA, NA, CA, URIC, BUN, K, CO2, CL #### [facility] [address] [place] [address] Dr. Cesar Francsi Glucose [Mass/Vol] 102 mg/dL Normal 74-106 [facility] Comment on above: Performed By: #### C KATYA, NA, CA, URIC, BUN, K, CO2, CL #### [facility] [address] [address] [address] Cesar Francis Potassium [Moles/Vol] 3.7 mmol/L Normal 3.5-5.1 [facility] Comment on above: Performed By: #### C KATYA, NA, CA, URIC, BUN, K, CO2, CL #### [facility] [address] [address] [address] Cesar Francis Protein [Mass/Vol] 7.1 g/dL Normal 6.4-8.2 [facility] Comment on above: Performed By: #### C KATYA, NA, CA, URIC, BUN, K, CO2, CL #### [facility] [address] [place] [address] Dr. Cesar Francis Sodium [Moles/Vol] 140 mmol/L Normal 136-145 [facility] Comment on above: Performed By: #### C KATYA, NA, CA, URIC, BUN, K, CO2, CL #### [facility] [address] [place] [address] Dr. Cesar Francis Urea nitrogen [Mass/Vol] 28.0 mg/dL Critically high 7.0-18.0 [facility] Comment on above: Performed By: #### C KATYA, NA, CA, URIC, BUN, K, CO2, CL #### [facility] [address] [place] [address] Dr. Cesar Francis Urea nitrogen/Creatinine [Mass ratio] 39.4 mg/mg Normal [facility] Comment on above: Performed By: #### C KATYA, NA, CA, URIC, BUN, K, CO2, CL #### [facility] [address] [place] [address] Dr. Cesar Francis PTH INTACTon 10-10-2021 PTH, Intact 13 pg/mL Critically low 15-65 [facility] Comment on above: Performed By: #### C KATYA, NA, CA, URIC, BUN, K, CO2, CL #### [facility] [address] [place] [address] Dr. Cesar Francis BUNon 10-09-2021 Urea nitrogen [Mass/Vol] 11.0 mg/dL Normal 7.0-18.0 [facility] Comment on above: Performed By: #### C KATYA, NA, CA, URIC, BUN, K, CO2, CL #### [facility] [address] [place] [address] Dr. Cesar Francis CALCIUMon 10-09-2021 Calcium [Mass/Vol] 9.2 mg/dL Normal 8.5-10.1 [facility] Comment on above: Performed By: #### C KATYA, NA, CA, URIC, BUN, K, CO2, CL #### [facility] [address] [place] [address] Dr. Cesar Francis CHLORIDEon 10-09-2021 Chloride [Moles/Vol] 104 mmol/L Normal 98-107 [facility] Comment on above: Performed By: #### C KATYA, NA, CA, URIC, BUN, K, CO2, CL #### [facility] [address] [place] [address] Dr. Cesar Francis CO2on 10-09-2021 CO2 [Moles/Vol] 28.5 mmol/L Normal 21.0-32.0 [facility] Comment on above: Performed By: #### C KATYA, NA, CA, URIC, BUN, K, CO2, CL #### [facility] [address] [place] [address] Dr. Cesar Francis CREATININEon 10-09-2021 Creatinine [Mass/Vol] 0.83 mg/dL Normal 0.55-1.02 [facility] Comment on above: Performed By: #### C KATYA, NA, CA, URIC, BUN, K, CO2, CL #### [facility] [address] [place] [address] Dr. Cesar Francis EGFR-AF IRANIAN >60 Normal >=60 [facility] Comment on above: Performed By: #### C KATYA, NA, CA, URIC, BUN, K, CO2, CL #### [facility] [address] [address] [address] Cesar Francis EGFR-NON AF IRANIAN >60 Normal >=60 [facility] Comment on above: Performed By: #### C KATYA, NA, CA, URIC, BUN, K, CO2, CL #### [facility] [address] [address] [address] Cesar Francis NAon 10-09-2021 Sodium [Moles/Vol] 143 mmol/L Normal 136-145 [facility] Comment on above: Performed By: #### C KATYA, NA, CA, URIC, BUN, K, CO2, CL #### [facility] [address] [address] [address] Cesar Francis PHOSPHORUSon 10-09-2021 Phosphate [Mass/Vol] 2.7 mg/dL Normal 2.6-4.7 [facility] Comment on above: Performed By: #### C KATYA, NA, CA, URIC, BUN, K, CO2, CL #### [facility] [address] [address] [address] Cesar Francis URIC ACID SERUMon 10-09-2021 Urate [Mass/Vol] 5.8 mg/dL Normal 2.6-6.0 [facility] Comment on above: Performed By: #### C KATYA, NA, CA, URIC, BUN, K, CO2, CL #### [facility] [address] [address] [address] Cesar Francis PROTIMEon 05-04-2017 INR Coag RelTime (PPP) 1.04 {INR} Normal 0.00-1.20 [facility] Comment on above: Order Comment: CONSE RVATIONList patient's anticoagulants for PT: NONE SPECIFIED Result Comment: Troy mmended therapeutic range is an INR of 2.0-3.0 exceptfor prevention of recurrent acute RI and mechanicalprosthetic heart valve where an INR of 2.5-3.5 isrecommended. Performed By: #### L 300.50838 ####Test performed at: [address] [place] [address] PT SEC 11.0 seconds Normal 9.7-11.5 [facility] Comment on above: Order Comment: CONSE RVATIONList patient's anticoagulants for PT: NONE SPECIFIED Performed By: #### L 300.13699 ####Test performed at: [place] [id number] CARDIAC CATHETERIZATIONon CARDIAC CATHETERIZATION PATIENT NAME: ANNELISE SNOW#: [id number]: ANNELISE SNOW#: [id number] OF PROCEDURE: 05/03/2017CARDIAC CATHHISTORY OF PRESENT ILLNESS: [...] was accessedwith a multipurpose needle and a 6-Turkmen sheath inserted. Selective coronaryarteriography was performed using 6-Turkmen JL4 and 6-Turkmen JR4 catheters.Left ventriculography was performed using a 6-Turkmen angled pigtail catheter.At the end of the [...] groove. The rest [facility]: BEKA SNOW [facility] MEDICAL REC: [id number] [facility] ACCOUNT NUM: [id number]: [facility] [place] : [address] [place] [address] ATTENDING PHY: [facility] CATHETERIZATIONPATIENT NAME: ELDON SNOWR#: [id number] contain any significant disease.LEFT VENTRICULOGRAM: The left ventricular injection reveals a normal size leftventricle with normal contractility and normal ejection fraction. There is noangiographic mitral regurgitation.FINAL DIAGNOSIS:1. CAD-luminal irregularities, left main trunk-patent stent in proximal LAD-60-70% mid point. Posterior descending vhdebyuojm-97-66% mid rightcoronary artery.RECOMMENDATION: The circumflex stent will [...] at anappropriate time on the floor. MICHAEL MOREIRA/SEAN/[id number]: 05/03/2017 13:24:11 E/S: Candice Torres MD05/07/17 0850Signature on [facility] PATIENT NAME: BEKA SNOW [facility] REC: [id number] [facility] ACCOUNT NUM: [id number]: [facility] [place] : [address] [place] [address] ATTENDING PHY: Torres,Candice J. MDCARDIAC CATHETERIZATION Normal [facility] CBC W/DIFFon 05-03-2017 BASO ABS 0.1 K/uL Normal 0.0-0.2 [facility] Comment on above: Order Comment: CONSE RVATION Performed By: #### L 200.98546 ####Test performed at: [address] [address] Basophils/100 WBC Auto (Bld) 1.8 % Normal [facility] Comment on above: Order Comment: CONSE RVATION Performed By: #### L 200.82424 ####Test performed at: [address] [address] EOS ABS 0.2 K/uL Normal 0.0-0.5 [facility] Comment on above: Order Comment: CONSE RVATION Performed By: #### L 200.00224 ####Test performed at: [address] [address] Eosinophils/100 leukocytes 2.6 % Normal [facility] Comment on above: Order Comment: CONSE RVATION Performed By: #### L 200.37569 ####Test performed at: [address] [address] Erythrocyte distribution width Auto Ratio (RBC) 13.7 % Normal 11.5-14.5 [facility] Comment on above: Order Comment: CONSE RVATION Performed By: #### L 200.01941 ####Test performed at: [address] [address] Erythrocytes (RBC) 5.06 10*6/uL Normal 3.5-5.5 [facility] Comment on above: Order Comment: CONSE RVATION Performed By: #### L 200.23931 ####Test performed at: [address] [address] Erythrocytes (RBC) 0.000 10*6/uL Normal 0-0.012 [facility] Comment on above: Order Comment: CONSE RVATION Performed By: #### L 200.51461 ####Test performed at: [place] [id number] Hematocrit (HCT) 42.6 % Normal 36.0-48.0 [facility] Comment on above: Order Comment: CONSE RVATION Performed By: #### L 200.11831 ####Test performed at: [place] [address] Hemoglobin mass conc (Bld) 14.1 g/dL Normal 12.0-15.0 [facility] Comment on above: Order Comment: CONSE RVATION Performed By: #### L 200.50039 ####Test performed at: [place] [address] IG % 0.3 % Normal [facility] Comment on above: Order Comment: CONSE RVATION Performed By: #### L 200.64826 ####Test performed at: [place] [address] IG ABS 0.02 K/uL Normal 0-0.05 [facility] Comment on above: Order Comment: CONSE RVATION Performed By: #### L 200.97634 ####Test performed at: [place] [address] Lymphocytes 1.5 10*3/uL Normal 1.2-3.5 [facility] Comment on above: Order Comment: CONSE RVATION Performed By: #### L 200.63593 ####Test performed at: [place] [id number] Lymphocytes/100 leukocytes 20.2 % Normal [facility] Comment on above: Order Comment: CONSE RVATION Performed By: #### L 200.71943 ####Test performed at: [place] [address] MCH 27.9 pg Normal 25.4-34.6 [facility] Comment on above: Order Comment: CONSE RVATION Performed By: #### L 200.08720 ####Test performed at: [address] [address] MCHC mass conc (RBC) 33.1 g/dL Normal 31.5-36.5 [facility] Comment on above: Order Comment: CONSE RVATION Performed By: #### L 200.56424 ####Test performed at: [address] [address] MCV 84.2 fL Normal 79.0-98.0 [facility] Comment on above: Order Comment: CONSE RVATION Performed By: #### L 200.08393 ####Test performed at: [address] [address] MONO ABS 0.7 K/uL Normal 0.0-1.0 [facility] Comment on above: Order Comment: CONSE RVATION Performed By: #### L 200.71567 ####Test performed at: [address] [address] Monocytes/100 leukocytes 9.4 % Normal [facility] Comment on above: Order Comment: CONSE RVATION Performed By: #### L 200.08545 ####Test performed at: [address] [address] Neutrophils 4.8 10*3/uL Normal 1.4-6.6 [facility] Comment on above: Order Comment: CONSE RVATION Performed By: #### L 200.54036 ####Test performed at: [address] [address] Neutrophils/100 WBC Auto (Bld) 65.7 % Normal [facility] Comment on above: Order Comment: CONSE RVATION Performed By: #### L 200.70597 ####Test performed at: [address] [address] NRBC % 0.0 /100 WBC Normal 0-0.2 [facility] Comment on above: Order Comment: CONSE RVATION Performed By: #### L 200.89013 ####Test performed at: [address] [address] Platelet mean volume (PMV) 11.9 fL Normal 8.7-12.4 [facility] Comment on above: Order Comment: CONSE RVATION Performed By: #### L 200.96488 ####Test performed at: [place] [address] Platelets 207 10*3/uL Normal 140-440 [facility] Comment on above: Order Comment: CONSE RVATION Performed By: #### L 200.45591 ####Test performed at: [place] [id number] WBC (Leukocytes) 7.2 10*3/uL Normal 3.9-11.0 [facility] Comment on above: Order Comment: CONSE RVATION Performed By: #### L 200.17334 ####Test performed at: [place] [id number] COMP META PANELon 05-03-2017 Alanine aminotransferase (ALT) 17 U/L Normal 13-61 [facility] Comment on above: Order Comment: CONSE RVATIONIs patient fasting? UNKNOWN Performed By: #### L 500.91613, L500.37327, L500.78668, L500.89536 ####Test performed at: [place] [id number] Albumin 3.4 g/dL Normal 3.4-5.0 [facility] Comment on above: Order Comment: CONSE RVATIONIs patient fasting? UNKNOWN Performed By: #### L 500.40634, L500.68946, L500.33970, L500.24479 ####Test performed at: [place] [id number] ALK PHOS TOTAL 96 U/L Normal 45-117 [facility] Comment on above: Order Comment: CONSE RVATIONIs patient fasting? UNKNOWN Performed By: #### L 500.33578, L500.04733, L500.58645, L500.11598 ####Test performed at: [place] [address] Aspartate aminotransferase (AST) 15 U/L Normal 15-37 [facility] Comment on above: Order Comment: CONSE RVATIONIs patient fasting? UNKNOWN Performed By: #### L 500.16463, L500.31816, L500.75181, L500.02945 ####Test performed at: [place] [address] BILI TOTAL 0.7 mg/dL Normal 0.2-1.0 [facility] Comment on above: Order Comment: CONSE RVATIONIs patient fasting? UNKNOWN Performed By: #### L 500.10480, L500.93087, L500.80436, L500.15806 ####Test performed at: [place] [address] Calcium 8.3 mg/dL Low 8.5-10.1 [facility] Comment on above: Order Comment: CONSE RVATIONIs patient fasting? UNKNOWN Performed By: #### L 500.63156, L500.25012, L500.22618, L500.98449 ####Test performed at: [place] [id number] Chloride 108 mmol/L High 98-107 [facility] Comment on above: Order Comment: CONSE RVATIONIs patient fasting? UNKNOWN Performed By: #### L 500.22385, L500.72615, L500.61634, L500.39734 ####Test performed at: [place] [id number] CO2 30 mmol/L Normal 21-32 [facility] Comment on above: Order Comment: CONSE RVATIONIs patient fasting? UNKNOWN Performed By: #### L 500.88478, L500.14854, L500.55745, L500.52448 ####Test performed at: [place] [address] Creatinine 0.648 mg/dL Normal 0.550-1.020 [facility] Comment on above: Order Comment: CONSE RVATIONIs patient fasting? UNKNOWN Performed By: #### L 500.50066, L500.97034, L500.98371, L500.96344 ####Test performed at: [place] [address] Glucose mass conc 94 mg/dL Normal 74-106 [facility] Comment on above: Order Comment: CONSE RVATIONIs patient fasting? UNKNOWN Performed By: #### L 500.35809, L500.16475, L500.22573, L500.73792 ####Test performed at: [place] [address] Potassium molar conc 4.2 mmol/L Normal 3.5-5.1 [facility] Comment on above: Order Comment: CONSE RVATIONIs patient fasting? UNKNOWN Performed By: #### L 500.33967, L500.63603, L500.80692, L500.35812 ####Test performed at: [place] [id number] Protein 6.4 g/dL Normal 6.4-8.2 [facility] Comment on above: Order Comment: CONSE RVATIONIs patient fasting? UNKNOWN Performed By: #### L 500.01241, L500.36641, L500.52007, L500.76402 ####Test performed at: [place] [address] Sodium 142 mmol/L Normal 136-145 [facility] Comment on above: Order Comment: CONSE RVATIONIs patient fasting? UNKNOWN Performed By: #### L 500.62830, L500.25141, L500.36069, L500.61159 ####Test performed at: [place] [address] Urea nitrogen 10 mg/dL Normal 7-18 [facility] Comment on above: Order Comment: CONSE RVATIONIs patient fasting? UNKNOWN Performed By: #### L 500.85431, L500.62381, L500.88747, L500.16629 ####Test performed at: [place] [address] Cardiology Progress Noteon 0 05-03-2017 Cardiology Progress Note [facility] Pt Name: QUE SNOWA[address] MR#: [id number] [address] ACCT: [id number] NOTE - Cardiology : 59Service Date: 05/04/17 1131NAME: ANNELISE SNOW#: [id number] OF SERVICE: 05/04/2017CARDIOLOGY PROGRESS NOTESUBJECTIVE: Mrs. Snow [...] me with jason 1 month. CANDICE TORRES, MDRJS/MODL/[id number] 35D: 05/04/2017 11:31:37 eSign Date and TimeSteeleCandice MD Signature on File 05/04/17 1156 Normal [facility] EKGon 05-03-2017 EKG Acquired on 05/03/19 18 0957Vent. Rate : 055 BPM Atrial Rate : 055 BPMP-R Int : 188 ms QRS Dur : 080 msQT Int : 396 ms P-R-T Axes : 058 062 055 degreesQTc Int : 378 msSinus bradycardiaOtherwise normal ECGNo previous ECGs availableConfirmed by CANDICE TORRES MD ([id number]) on 05/04/2017 11:16:47 AMReferred By: Confirmed By:CANDICE TORRES [id number] 2017 [facility] PT NAME: ANNELISE SNOW#: [id number] [place] [address] ACCT: [id number]: 59EK REPORT Normal [facility] EST. CREAT CLRon 05-03-2017 Creatinine 104.424 ML/MIN Normal [facility] Comment on above: Order Comment: CONSE RVATIONIs patient fasting? UNKNOWN Result Comment: This result is an ESTIMATED blood creatinine clearance valuewhich is derived from the patient age, sex, weight, andprevious blood creatinine result. Performed By: #### L 500.05352, L500.49204, L500.73136, L500.21719 ####Test performed at: [place] [address] GFR ESTIMATEon 05-03-2017 IF AMER > 60 Normal > 60 [facility] Comment on above: Order Comment: CONSE RVATIONIs patient fasting? UNKNOWN Result Comment: eGFR (Estimated GFR) Units of measure:mL/min/1.73 meters sq.*CALCULATION REVISED 12/28/2014;IDMS-traceable MDRD equationeGFR is derived from the reexpressed MDRD Study equationusing the following parameters: serum creatinine, age,gender and race. An eGFR<60 mL/min/1.73m2 for >3 monthsis consistent with chronic kidney disease. [facility] for [facility] interpretation. Performed By: #### L 500.92822, L500.77320, L500.36289, L500.06996 ####Test performed at: [place] [address] IF non-AFR AMER > 60 Normal > 60 [facility] Comment on above: Order Comment: CONSE RVATIONIs patient fasting? UNKNOWN Performed By: #### L 500.76288, L500.22411, L500.07170, L500.06260 ####Test performed at: [place] [address] LIPID PROFILEon 05-03-2017 Cholesterol 255 mg/dL High <200 [facility] Comment on above: Order Comment: CONSE RVATIONIs patient fasting? UNKNOWN Result Comment: <200 mg/dL (Desirable) 200-240 mg/dL (Borderline) >240 mg/dL (High Risk) Performed By: #### L 500.31718, L500.04964, L500.71907, L500.05615 ####Test performed at: [place] [address] HDL Cholesterol 51 mg/dL Normal 40-60 [facility] Comment on above: Order Comment: CONSE RVATIONIs patient fasting? UNKNOWN Performed By: #### L 500.46389, L500.68470, L500.71319, L500.08071 ####Test performed at: [address] [address] LDL Cholesterol 188 mg/dL High 60-130 [facility] Comment on above: Order Comment: CONSE RVATIONIs patient fasting? UNKNOWN Performed By: #### L 500.48155, L500.18907, L500.64578, L500.33992 ####Test performed at: [place] [address] Triglyceride 99 mg/dL Normal <150 [facility] Comment on above: Order Comment: CONSE RVATIONIs patient fasting? UNKNOWN Result Comment: <150 mg/dL (Normal) 150-199 mg/dL (Borderline) 200-499 mg/dL (High) >500 mg/dL (Very High) Performed By: #### L 500.78492, L500.48439, L500.65130, L500.10034 ####Test performed at: [place] [address] PROTIMEon 05-03-2017 INR Coag RelTime (PPP) 1.06 {INR} Normal 0.00-1.20 [facility] Comment on above: Order Comment: CONSE RVATIONList patient's anticoagulants for PT: HEPARIN Result Comment: [place] mmended therapeutic range is an INR of 2.0-3.0 exceptfor prevention of recurrent acute RI and mechanicalprosthetic heart valve where an INR of 2.5-3.5 isrecommended. Performed By: #### L 300.16008 ####Test performed at: [place] [id number] PT SEC 11.2 seconds Normal 9.7-11.5 [facility] Comment on above: Order Comment: MIGUEL A RVATIONList patient's anticoagulants for PT: HEPARIN Performed By: #### L 300.34044 ####Test performed at: [place] [address] Vital Signs Date Time Vital Sign Value Performing Clinician Arti cotton 06-12-2024 09:55-0400 Diastolic blood pressure 69 mm[Hg] Son Ball DO Work Phone: [facility] 06-12-2024 09:55-0400 Heart rate 66 /min Son Ball DO Work Phone: [facility] 06-12-2024 09:55-0400 Respiratory rate 16 /min Son Ball DO Work Phone: [facility] 06-12-2024 09:55-0400 SaO2% (BldA) [Mass fraction] 95 % Son Ball DO Work Phone: [facility] 06-12-2024 09:55-0400 Systolic blood pressure 116 mm[Hg] Son Ball DO Work Phone: [facility] 06-12-2024 07:53-0400 Body height 165.1 cm Son Ball DO Work Phone: [facility] 06-12-2024 07:53-0400 Body weight 70.3 kg Son Ball DO Work Phone: [facility] 06-11-2024 08:37-0400 Body height 165.1 cm [facility] 06-11-2024 08:37-0400 Body mass index (BMI) [Ratio] 28.3 kg/m2 [facility] 06-11-2024 08:37-0400 Body weight 77.22 kg [facility] 06-11-2024 08:37-0400 Diastolic blood pressure 74 mm[Hg] [facility] 06-11-2024 08:37-0400 Heart rate 61 /min [facility] 06-11-2024 08:37-0400 Respiratory rate 12 /min [facility] 06-11-2024 08:37-0400 Systolic blood pressure 127 mm[Hg] [facility] 12-20-2023 09:47-0400 Body height 165.1 cm [facility] 12-20-2023 09:47-0400 Body mass index (BMI) [Ratio] 27.7 kg/m2 [facility] 12-20-2023 09:47-0400 Body weight 75.52 kg [facility] 12-20-2023 09:47-0400 Diastolic blood pressure 77 mm[Hg] [facility] 12-20-2023 09:47-0400 Heart rate 68 /min [facility] 12-20-2023 09:47-0400 Respiratory rate 12 /min [facility] 12-20-2023 09:47-0400 Systolic blood pressure 127 mm[Hg] [facility] 08-15-2023 09:13-0400 Body height 165.1 cm [facility] 08-15-2023 09:13-0400 Body mass index (BMI) [Ratio] 26.6 kg/m2 [facility] 08-15-2023 09:13-0400 Body weight 72.74 kg [facility] 08-15-2023 09:13-0400 Diastolic blood pressure 69 mm[Hg] [facility] 08-15-2023 09:13-0400 Heart rate 60 /min [facility] 08-15-2023 09:13-0400 Respiratory rate 12 /min [facility] 08-15-2023 09:13-0400 Systolic blood pressure 118 mm[Hg] [facility] 06-05-2023 08:38-0400 Body height 165.1 cm [facility] 06-05-2023 08:38-0400 Body mass index (BMI) [Ratio] 26.8 kg/m2 [facility] 06-05-2023 08:38-0400 Body weight 73.02 kg [facility] 06-05-2023 08:38-0400 Diastolic blood pressure 76 mm[Hg] [facility] 06-05-2023 08:38-0400 Heart rate 73 /min [facility] 06-05-2023 08:38-0400 Respiratory rate 12 /min [facility] 06-05-2023 08:38-0400 Systolic blood pressure 124 mm[Hg] [facility] 06-19-2021 14:55-0400 Blood Pressure Location Rachelle Whitfield [facility] 06-19-2021 14:55-0400 Diastolic blood pressure 78 mm[Hg] Rachelle Lue [facility] 06-19-2021 14:55-0400 Heart rate 78 /min Rachelle Lue [facility] 06-19-2021 14:55-0400 Respiratory rate 16 /min Rachelle Lue [facility] 06-19-2021 14:55-0400 Systolic blood pressure 115 mm[Hg] Rachelle Lue [facility] Encounters Encounter Date Encounter Type Care Provider Facility Start: 12-24-2024 ambulatory Rachelle M. Lue Facility:[facility] Start: 06-12-2024 Non-patient / Non-visit Benjam in Ball DO Work Phone: [facility] Work Phone: Start: 06-12-2024 End: 06-12-2024 Admission to same day surgery center Son Ball DO Work Phone: [facility] Work Phone: Start: 06-12-2024 End: 06-12-2024 ambulatory Son Ball DO Work Phone: [facility] Work Phone: Start: 06-11-2024 End: 06-11-2024 ambulatory [facility] Work Phone: Start: 06-11-2024 End: 04-03-2025 Encounter for general adult medical examination without abnormal findings [facility] Start: 06-11-2024 End: 06-11-2024 Patient encounter procedure [facility] Work Phone: Start: 01-29-2024 End: 01-30-2024 ambulatory [facility] Start: 12-20-2023 End: 12-20-2023 ambulatory [facility] Work Phone: Start: 12-20-2023 End: 12-20-2023 Patient encounter procedure [facility] Work Phone: Start: 11-19-2023 Non-patient / Non-visit [facility] Work Phone: Start: 10-14-2023 End: 10-14-2023 ambulatory NADIA Charlton DAUCH-BRADEN Not Available Start: 09-30-2023 End: 09-30-2023 ambulatory RUFINO B APLING Not Available Start: 09-09-2023 End: 09-09-2023 ambulatory DALE KATIE Not Available Start: 09-04-2023 End: 09-04-2023 ambulatory RUFINO B APLING Not Available Start: 08-28-2023 End: 08-28-2023 Evaluation and management of inpatient BACILIO Pratt [facility] Start: 08-28-2023 End: 08-28-2023 Evaluation and management of inpatient LORRAINE Pratt [facility] Start: 08-15-2023 End: 08-15-2023 ambulatory [facility] Work Phone: Start: 08-15-2023 End: 08-15-2023 Patient encounter procedure [facility] Work Phone: Start: 08-07-2023 End: 08-07-2023 ambulatory [facility] Start: 08-07-2023 End: 08-07-2023 Encounter for preprocedural cardiovascular examination [facility] Start: 08-01-2023 Encounter for other preprocedural examination LORRAINE [facility] Start: 08-01-2023 End: 08-01-2023 ambulatory LORRAINE Pratt [facility] Start: 07-30-2023 End: 07-30-2023 ambulatory LORRAINE RAYA Not Available Start: 07-22-2023 End: 07-22-2023 ambulatory LORRAINE RAYA Not Available Start: 07-16-2023 End: 07-16-2023 ambulatory LORRAINE RYAA Not Available Start: 06-05-2023 End: 06-05-2023 ambulatory [facility] Work Phone: Start: 06-05-2023 End: 06-05-2023 Encounter for general adult medical examination without abnormal findings [facility] Start: 06-05-2023 End: 06-05-2023 Patient encounter procedure [facility] Work Phone: Start: 05-31-2023 Non-patient / Non-visit [facility] Work Phone: Start: 05-08-2023 Non-patient / Non-visit [facility] Work Phone: Start: 05-08-2023 Non-patient / Non-visit [facility] Work Phone: Start: 05-07-2023 End: 05-07-2023 ambulatory ABI GIBBS Not Available Start: 04-30-2023 End: 04-30-2023 ambulatory LORRAINE BRYANDLESTON Not Available Start: 04-09-2023 End: 04-09-2023 ambulatory LORRAINE Terence JOSEPHINE Not Available Start: 04-01-2023 End: 04-01-2023 ambulatory ABI GIBBS Not Available Start: 03-26-2023 Patient encounter procedure [facility] Start: 03-18-2023 End: 03-18-2023 ambulatory ABI GIBBS Not Available Start: 06-30-2022 End: 07-01-[address] HAIR DIETZ Facility: Start: 06-21-2022 End: 06-22-[address] HAIR DIETZ Facility:[facility] Start: 06-20-2022 ambulatory BRANDT MCNAMARA Facili ty:[facility] Start: 06-09-2022 ambulatory BRANDT VICENTEHIROBHARGAVI Facili ty:[facility] Start: 05-31-2022 End: 06-01-2022 ambulatory BRANDT VICENTEDALIA Facility:[facility] Start: 05-22-2022 End: 05-23-2022 ambulatory RACHELLE M LUE . Facility:[facility] Start: 05-18-2022 End: 05-19-2022 ambulatory RACHELLE M LUE . Facility:[facility] Start: 04-17-2022 End: 04-18-[address] SON IRIZARRY Facility:[facility] Start: 02-15-2022 Encounter for genera l adult medical examination without abnormal findings DR SON IRIZARRY [facility] Start: 02-09-2022 End: 02-10-[address] SON IRIZARRY Facility:[facility] Start: 02-09-2022 End: 02-10-2022 Encounter for general adult medical examination without abnormal findings DR SON IRIZARRY Facility:[facility] Start: 12-07-2021 End: 12-07-2021 Patient encounter procedure Rachelle M. Lue [facility] Start: 10-09-2021 End: 10-10-2021 ambulatory RACHELLE M LUE . Facility:[facility] Start: 06-19-2021 End: 06-19-2021 Patient encounter procedure Rachelle M. Lue [facility] Start: 05-03-2017 End: 05-04-2017 Evaluation and management of inpatient Family Physician Unavailable Facility:[facility] Procedures Date Procedure Procedure Detail Performing Clinician Start: 06-12-2024 Colonoscopy Sno Corrales all DO Work Phone: Start: 05-27-2018 Cystoscopy [...] Date Care Activity Detail Author Start: 06-12-2024 [facility] Start: 06-05-2023 Patient referral [facility] Work Phone: Patient Education Hemorrhoids Co jason polyps Know your Meds [facility] Work Phone: Patient referral [facility] Work Phone: [facility] Immunizations Immunization Date Immunization Notes Care Provider Rossi bourgeois NEGATED: Highlighted row has not occurred!03-18-2019 influenza virus vaccine, live, attenuated, for intranasal use Rachelle Whitfield [facility] Payers Date Payer Category Payer Self-pay [id number] 2015 Private Health Insurance [id number] 1960 Self-pay [id number] 1959 Unknown [id number] 1959 Unknown [id number] 2.16.84 0.1.671540.3.579.2.593 1959 Unknown [id number] 2.16.84 0.1.768558.3.579.2.593 1959 Unknown [id number] 2.16.84 0.1.605941.3.579.2.593 1959 Unknown [id number] 2.16.84 0.1.936202.3.579.2.593 1959 Unknown [id number] 2.16.84 0.1.263342.3.579.2.593 1959 Unknown [id number] 2.16.84 0.1.795084.3.579.2.593 1959 Unknown [id number] 2.16.84 0.1.939364.3.579.2.593 1959 Unknown [id number] 2.16.84 0.1.106367.3.579.2.593 1959 Unknown [id number] 2.16.84 0.1.159736.3.579.2.593 1959 Unknown [id number] 2.16.84 0.1.518213.3.579.2.593 1959 Unknown [id number] 2.16.84 0.1.634141.3.579.2.593 1959 Unknown [id number] 2.16.8 40.1.759639.3.579.2.1286 1959 Unknown [id number] 2.16.8 40.1.165881.3.579.2.1286 1959 Unknown [id number] 2.16.8 40.1.670687.3.579.2.1286 1959 Unknown [id number] 2.16.8 40.1.131510.3.579.2.1286 1959 Unknown [id number] 2.16.8 40.1.218020.3.579.2.1286 1959 Unknown [id number] 2.16.8 40.1.949396.3.579.2.1286 1959 Unknown [id number] 2.16.84 0.1.980434.3.579.2.1259 1959 Unknown [id number] 2.16.84 0.1.694543.3.579.2.1259 1959 Unknown [id number] 2.16.84 0.1.255194.3.579.2.1259 1959 Unknown [id number] 2.16.84 0.1.150181.3.579.2.1259 1959 Unknown [id number] 2.16.84 0.1.497059.3.579.2.1259 1959 Unknown [id number] 2.16.84 0.1.509306.3.579.2.1259 1959 Unknown [id number] 2.16.84 0.1.250199.3.579.2.1259 1959 Unknown [id number] 2.16.84 0.1.147562.3.579.2.1259 1959 Unknown [id number] 2.16.84 0.1.466115.3.579.2.1259 1959 Unknown [id number] 2.16.84 0.1.694021.3.579.2.1259 1959 Unknown [id number] 2.16.84 0.1.920356.3.579.2.1259 1959 Unknown [id number] 2.16.84 0.1.847191.3.579.2.1259 1959 Unknown [id number] 2.16.84 0.1.713751.3.579.2.1259 1959 Unknown [id number] 2.16.840 .1.363166.3.579.2.1259 Unknown [id number] 2.16.8 40.1.381859.3.579.2.531 Social History Date Type Detail Facility Start: 06-19-2021 End: 06-12-2024 Tobacco smoking status Ex-smoker (finding) [facility] Sex Assigned At Female [facility] Start: 1960 Sex Assigned At Female F [facility] Start: 06-11-2024 End: 06-12-2024 Sex Female (finding) [facility] Goals Date Patient Goal Desired Activity /State Functional Status Date Assessment Result Facility 12-07-2021 Functional Status N/A [facility] Clinical Notes 06-19-2021 to 06-12-2024 Note Date & Type Note Facility 06-12-2024 Procedure note [facility] 06-12-2024 History and physi omi note [facility] 06-11-2024 Evaluation note Diagnosis Onset Date Resolution ASHD (arteriosclerotic heart disease) acute June 11, 2024 8:19am Chronic bronchitis, simple acute June 11, 2024 8:19am Elevated cholesterol acute Apri 2024 8:19am GERD (gastroesophageal reflux disease) acute June 11, 2024 8:19am Hypertension acute June 11, 025 8:19am Nicotine addiction acute June 11, 2024 8:19am Pulmonary nodule acute June 8:19am Screening for colon cancer noneactive June 11, 2024 8:19am Screening mammogram for breast cancer noneactive June 11, 2024 8:19am Wellness examination noneactive 2024 8:19am [facility] Work Phone: [phone]) 658-687111-20-2024 [facility] Subjective Pam Snow is a [...] Recurrent sinus infections Coronary artery disease of [place] artery of [place] heart with stable angina pectoris (CMS/HCC) Statin [...] bronchitis, simple (CMS/HCC) 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 Allergies Allergies Allergen Reactions Opbdmsy-Zxi-Lhn Reductase Inhibitors Unknown Medications Current Outpatient Medications: [...] 1,000 mcg/mL injection, , Disp: , Rfl: gdvztjnmfqq-oegcfxaaw-lkokbvnj (Trelegy El (more content not included)... [facility]05-29-2024 [facility] Malia Snow is a 63 y.o. year old female patient being seen for CAD, statin intolerance, and stable angina. She needs cleared for shoulder surgery, scheduled 08/[address] Raya. She had EKG last week at [facility]. She had routine labs with lipid [...] Recurrent sinus infections Coronary artery disease of [place] artery of [place] heart with stable angina pectoris (CMS/HCC) Statin [...] bronchitis, simple (CMS/HCC) GERD (gastroesophageal reflux disease) [facility] (current) use of inhaled steroids Syncope Family [...] Judgment: Judgment normal. Allergies Allergies Allergen Reactions Aamimao-Xgj-Bjd Reductase Inhibitors Unknown Medications Current Outpatient Medications: aspirin 81 mg EC tablet, Take 81 mg by mouth in the morning., Disp: , Rfl: buPROPion XL (Wellbutrin XL) 300 mg 24 hr tablet, , Disp: , Rfl: cyanocobalamin (Vitamin B-12) 1,000 mcg/mL injection, , Disp: , Rfl: szzsthfudkg-vtqdsfbsv-xqbwizbk (Trelegy Ellipta) 100-62.5-25 mcg blister with device, 1 puff 1 (one) time each day at the same time., Disp: , Rfl: hydroCHLOROthiazide (HYDRODiuril) 25 mg ta (more content not included)... [facility]09-29-2022 Hospital Discharge instructions Patient Education 12/07/2021 15:35:55 Kidney Stones, Hvur-xe-Gumt Kidney Stones Kidney stones are rock-like masses [...] Follow these instructions at home: Medicines Take vkut-xlc-zssfpwk and prescription medicines only as told by [...] 08/13/2008 Document Revised: 07/14/2019 Document Reviewed: 07/14/2019 [employer] Patient Education 2020 [employer]. Follow Up Care 06/19/2021 15:23:52 With:Nahid KELLY, Rachelle Monroe URLatesha, URO Address: When: Unknown [facility] 04-11-2022 Hospital Discharge instructions Patient Education [...] include: ?Spinach. ?Rhubarb. ?Beets. ?Potato chips and pakistani fries. ?Nuts. If you regularly take a diuretic medicine, make sure to eat at least 1 2 fruits or vegetables high in potassium each day. These include: ?Avocado. ?Banana. ?Dodge, prune, carrot, or tomato juice. ?Baked potato. [...] Casseroles. Pizza. Lasagna. Frozen meals. Potato chips. Turkmen fries. Summary You can reduce your risk [...] 06/22/2011 Document Revised: 06/17/2019 Document Reviewed: 02/05/2017 [employer] Patient Education 2020 [employer]. Follow Up Care 05/15/2021 15:10:22 With:Nahid KELLY, Rachelle Monroe, CHRISTIANL, URO Address: [address] [place], [place] [address]dict [address] [address]- When:09/18/2021 Comments:w/24hr urine [facility] Evaluation + Plan note Future Appointments Appointment Date:10/02/2021 03:15:00 PM Scheduled Provider:Rachelle Whitfield MD Location:[facility] Appointment Type:URO Office Visit [facility] Evaluation + Plan note Future Appointments Appointment Date:06/07/2022 03:15:00 PM Scheduled Provider:Nahid KELLY, Rachelle Monroe Location:[facility] Appointment Type:URO Office Visit [facility] Evaluation note* Diagnosis Onset Date Resolution Status ASHD (arteriosclerotic heart disease) acute Chronic bronchitis, simple a cute Elevated cholesterol acute GERD (gastroesophageal reflux disease) acute Hypertension acute Screening for colon cancer n oneactive Screening mammogram for breast cancer noneactive Wellness examination noneact yudelka [facility] Work Phone: Evaluation note* Diagnosis [...] acute Preop exam for internal medicine noneactive [facility] Work Phone: Evaluation note* Diagnosis Onset Date Resolution Status Fatigue acute Primary insomnia acute [facility] Work Phone: Evaluation note* Diagnosis [...] 11, 2024 8:19am Wellness examination noneactive Apri l 2024 8:19am [facility] Work Phone: History and physical note Author Fam Fernandez [facility] Note Date/Time June 12, 2024 9:08 am [facility] [address] [place] [address] Gastroenterology H&P Signed Patient: Pam Snow MR#: [id number] : 1960 Acct:[id number] Age/Sex: 64 / F Adm Date: 5 Loc: Room: Type: [facility] Attending Dr: Fam Fernandez MD Copies to: [...] signed by Fam Fernandez MD> 06/12/24 0908 [facility] Work Phone: Hospital course Narrative No data available for this section [facility] Hospital Discharge instructions Additional Instructions DISCHARGE [...] problems. -Follow up with PCP. -Office number [phone].[facility] Work Phone: Progress note No data available for this section [facility] Summary Purpose Family History No Family History Records Found Relationship Condition Age at Onset Recorded Date/T rudy father Unknown Relationship Condition Age at Onset Recorded Date/T rudy father Malignant neoplasm of lung Unknown Advance Directives No Advanced Directives Records [...] Chief Complaint Wellness pre op clearance - dayhoit Reason for Visit ASHD (arteriosclerot ic heart [...] Admit Date ASHD (arteriosclerotic heart disease) Ap [facility] 2024 8:19am Chronic bronchitis, simple June 11 8:19am Elevated cholesterol June 11, 2024 8:1 9am GERD (gastroesophageal reflux disease) A pril 2024 8:19am Hypertension June 11, 2024 8:19 am Nicotine addiction June 11, 2024 8:19 am Pulmonary nodule June 11, 2024 8:19 am Screening for colon cancer June 11 8:19am Screening mammogram for breast cancer [facility] 2024 8:19am Wellness examination June 11, 2024 8:1 9am Chief Complaint Admit Date wellness June 11, 2024 8:19 am hx of colon polyps June 12, 2024 7:34 am hx of colon polyps June 12, 2024 9:07 am Additional Source Comments INFORMATION SOURCE (unrecogn ized section and content) DATE CREATED AUTHOR 08/30/2017 [facility] DATE CREATED AUTHOR AUTHOR'S ORGANIZ ATION 07/07/2022 [facility] DATE CREATED AUTHOR AUTHOR'S ORGANIZ ATION 08/29/2023 [facility] DATE CREATED AUTHOR AUTHOR'S ORGANIZ ATION 10/16/2023 [facility] EPIC DATE CREATED AUTHOR AUTHOR'S ORGANIZ ATION 02/01/2024 [facility] DATE CREATED AUTHOR AUTHOR'S ORGANIZ ATION 06/24/2024 [facility] DATE CREATED AUTHOR AUTHOR'S ORGANIZ ATION 12/17/2024 Maykel Nelson [facility] Care Team (unrecognized sect ion and content) [...] BE BASED ON THE PRIMARY CLINICAL RECORDS. [facility]. provides no warranty or guarantee of the accuracy or completeness of information in this document.
== END 2024-12-16 10:35 | disposition home or self-care (01) ==
PROVIDERS: PCP Internal Medicine; Visit Provider Urology
DX: N20.0 Calculus of kidney (principal)
CPT/HCPCS: 74018

== ENCOUNTER 2025-01-01 07:43 | Outpatient (OUT) | payer OTHER, SELFPAY ==
--- OUTSIDE RECORDS SUMMARY | 2024-12-21 05:51 | XMS_ITS | Continuity of Care Document ---
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 Name Role Phone Son Irizarry DO Primary Care Provider Son Irizarry DO Attending Provider [phone] Care Teams Patient Care Team Team Status: Active Member Role Status Dates Son Irizarry DO Primary Care Provider Active Patient Care Team Team Status: Inactive Member Role Status Dates Son Irizarry DO Primary Care Provider Active Start: December 21, 2024 End: December 21enjaarlet Irizarry DOAttending ProviderActiveStart: December 21, 2024 End: December 21, 2024 Chief Complaint and Reason for Visit Chief Complaint Admit Date bilateral ear pain December 21, 2024 9 :18am Allergies, Adverse Reactions, Alerts Allergen Type Severity Reaction Last Updated Verified Status Xqwiwnf-SPT-DwV Reductase Inhibitor Adverse Reaction Moderate Muscle Pain December 21, 2024 9:23am Yes Active Social History Smoking Status Status Start Date End Date Date of Observa tion Ex-smoker (finding) June 12, 2024 7:47am Observation Status Observation Response Date of Response Legal Sex Female (finding) [facility] 1959 Family History Relationship Condition Age at Onset Recorded Date/T rudy father Malignant neoplasm of lung Unknown Problems Active Problems Medical Problem Onset Date Status Comments Postmenopausal atrophic vaginitis Unknown Active Nicotine addictionUnknownActivePrimary insomniaUnknownActiveGeneralized anxiety disorderUnknownActiveAge-related osteoporosis without current pathological fractureFebruary 2018ActiveMenopauseUnknownActiveChronic bronchitis, simpleUnknownActiveLDCT: no suspicious nodules - 07/2023FatigueUnknownActive Centrilobular emphysemaUnknownActiveElevated cholesterolUnknownActivePulmonary noduleUnknownActiveLDCT: 6mm RLL, 4mm RUL nodule - 06/2023LDCT: resolution of RUL nodule - 04/2024Hormone imbalanceUnknownActiveGERD (gastroesophageal reflux disease)UnknownActiveHypertensionUnknownActiveASHD (arteriosclerotic heart disease)UnknownActiveInactive/Resolved Problems Medical Problem Onset Date Status Comments Urinary tract infection Unknown Resolved Prob chuck List clean-up per request of Phys. EHR Cmte Syncope Unknown Resolved Problem List cl silvino-up per request of Phys. EHR Cmte Medications Medication Status Dose Units Route Directions Qty Days St art Date Stop Date End Date Instructions Adherence Bupropion Hcl 300 mg tablet extended release 24 hr Dis continued 0 .ROUTE.ACFKADF43Okwhg 2023 12:24pmMay 2023 1:08pmTAKE 1 TABLET BY MOUTH DAILYPotassium Citrate 10 mEq (1,080 mg) tablet extended release Discontinued0.ROUTE.ZSGDQSM657Pyvqy 2023 10:03pmJuly 2024 8:54amTAKE 2 TABLETS BY MOUTH TWICE DAILY WITH MEALSBupropion Hcl 300 mg tablet extended release 24 hrDiscontinued0.ROUTE.IPALHIU59Vci 2023 1:08pmJuly 2024 7:33amTAKE 1 TABLET BY MOUTH DAILYHydrochlorothiazide 25 mg tabletDiscontinued0 .ROUTE.SPUPZPR54Gisz 2023 6:39amApril 2024 8:50pmTAKE 1 TABLET BY MOUTH ONCE DAILYCyanocobalamin (Vitamin B-12) 1,000 mcg/mL solutionActive0.ROUTE .CTJLTIJ3Nxhtcljh 2024 10:21amINJECT 1ML INTRAMUSCULARLY MONTHLY (DISCARD 28 DAYS AFTER FIRST USE)Complies with drug therapyHydrochlorothiazide 25 mg tabletActive0.ROUTE.BCGJLBN42Nbyef 2024 8:50pmTAKE 1 TABLET BY MOUTH ONCE DAILYComplies with drug therapyBupropion Hcl 300 mg tablet extended release 24 hrActive0.ROUTE.JGHBGER37Mhkq 2024 7:33amTAKE 1 TABLET BY MOUTH DAILY Complies with drug therapyPotassium Citrate 10 mEq (1,080 mg) tablet extended releaseActive0.ROUTE.TNEFWAJ578Ywvd 2024 8:53amTAKE 2 TABLETS BY MOUTH TWICE DAILY WITH MEALSComplies with drug therapyNystatin 100,000 unit/mL jounkrdtqrMwnujo2YNLITnty times zqqll63305Vpeopo 2024 12:00amswish for 30 seconds and swallowComplies with drug therapyCephalexin (Keflex) 500 mg capsule Uheraewwqagu8GPEVRqczz blrbe805Anvufrsf 2016 1:00amMarch 2023 9:38am Bupropion Hcl 300 mg tablet extended release 24 glIfgvgnregvyb613KNEMZlwks May 08, 2023 1:00amFebruary 2023 6:27pmMetoprolol Succinate 25 mg tablet extended release 24 ssMfkhcm79ZCIZWufjeWtxl 2023 12:00amComplies with drug therapyBempedoic Acid (Nexletol) 180 mg wvlhyoTyzkie999YRQBDxngoHfjf 2023 12:00amComplies with drug therapyBupropion Hcl 300 mg tablet extended release 24 ieTnicvdlwkzbh325BEQLWrunq9672Dxmuklzd 2023 6:25pmMarch 2023 12:25pmLubiprostone 8 mcg rnxsjdzNfwcqrvfwhji5MVUSQOmuln dailyMarch 2023 12:00amMarch 2024 1:40pmSucralfate (Carafate) 1 gram tablet Oqpkvoyatbeg5OTNQLhpd times dailyMarch 2023 12:00amMarch 2024 1:40pm Cyanocobalamin (Vitamin B-12) 1,000 mcg/mL tlpzvipyUdgwtkeuwimo7219XVRYSwjvke monthMarch 2023 12:00amFebruary 2024 10:22amEsomeprazole Magnesium 40 mg capsule,delayed release(DR/EC)Jfoafgfixosz36HCSYMqhae dailyMarch 2023 12:00amMarch 2024 1:40pmHydrochlorothiazide 25 mg pwrzbyIhiwxqpjmyll45JFTS DailyMarch 2023 12:00amJune 2023 6:39amMultivitamin (Daily Multi- Vitamin) rubwnrVaxonn8QKZDJGtyewZxyqt 2023 12:00amComplies with drug therapyClopidogrel (Plavix) 75 mg nbuvdjDbnwdavhnang11IJKJZkjynSwjdn 2023 12:00amJune 2023 9:29amAlbuterol Sulfate (Proventil Hfa) 90 mcg/actuation HFA aerosol bgsujhgInuozuqimvqi5HONIYVYMQHHFSVWbwnl 4 hours as neededThe [facility] 2023 12:00amMarch 2024 1:39pmPotassium Citrate 10 mEq (1,080 mg) tablet extended iheblgzSxvllcjlugmo74SNAQCMseyvCleja 2023 12:00amApril 2023 10:54uyIrnexccgcgy-Bgzivvjxf-Mwvhnnrl (Trelegy Ellipta) 100-62.5-25 mcg blister with egcmlxUogfxv7BMAOZSXKDRCYXGmfzfMwimg 2023 12:00amComplies with drug therapyAlirocumab (Praluent Pen) 150 mg/mL pen jkbyaagvDzxorr153WVYRJWTXUSRBT 2 WEEKSThe [facility] Of [facility] 2023 12:00amComplies with drug therapy Vital Signs Vital Reading Result Reference Range Collection Date/Time Height 65 [in_i] December 21, 2024 9:87ebUalddn01.12 [facility] 20[facility] 9:28amHeart Rate56 /vct76-164Qanqbsw 2024 9:28amRespiratory rate12 /egd94-50Jvkstey 2024 9:28amBP Bafujzar023 mm[Hg]100-140[facility] 2024 9:28amBP Mhvwcozva53 mm[Hg]60-100[facility] 2024 9:28amBMI (Body Mass Index)26.4 kg/u6Jjdaynf 2024 9:28am Advance Directives Advance Directive Response Recorded Date/ Time Advance Directives No January 9:20pm Insurance Providers Guarantor Pam Snow Address [address] [place] [address]Fzjtrer Info.Home Phone: Payer Policy Id Subscriber's Name Subscriber Id Effectiv e Date Expiration Date O [id number] Pam Snow [id number] Encounters Encounter Location(s) Arrival/Admit Date Discharge/Depart Date Provider(s) Departed Physician/Prov ider Office Visit -[facility] December 21, 2024 9:18am December 21, 2024 9:49am Son Irizarry , DO
--- OUTSIDE RECORDS SUMMARY | 2025-01-01 07:46 | XMS_ITS | CCD ---
Author Organization [facility] Care Team Providers Care Cdl Program Coordinator Name Role Phone Unavailable, Family Physician Unavailable Un available Unavailable, Family Physician Unavailable Un available Candice Torres Unavailable Unavailable Vel, Candice Nicole Unavailable Unavailable SON WALLACE Primary Care Physician LUE .RACHELLE Consulting Unavailable LUE ., RACHELLE Reyes Attending Unavailable LUE ., RACHELLE Reyes Admitting Unavailable BALL, DR FONG Primary Care Unavailable MOUKABRANDT GÓMEZ Consulting Unavailable NAIMA, BRANDT Attending Unavailable MOBRANDT MELENDEZ Admitting Unavailable RODRIGO, DR FONG Primary Care Unavailable MIRELA, DR HAIR Hale Consulting Unavailable MOUKABRANDT GÓMEZ Attending Unavailable MOUKARBELBRANDT Admitting Unavailable BALL, DR FONG Primary Care Unavailable MOUKABRANDT GÓMEZ Consulting Unavailable MIRELA, DR HAIR Hale Consulting Unavailable SAMSA .MARLENE Attending Unavailable SAMSA .MARLENE Admitting Unavailable BALL, DR FONG Primary Care Unavailable SAMSA .MARLENE Consulting Unavailable HEMAUKABRANDT GÓMEZ Admitting Unavailable MOUKARBBRANDT BURK Attending Unavailable BALL, DR FONG Primary Care Unavailable LUE .RACHELLE Consulting Unavailable LUE .RACHELLE Attending Unavailable LUE ., RACHELLE Reyes Admitting Unavailable RODRIGO, DR FONG Primary Care Unavailable RODRIGO, DR FONG Primary Care Unavailable RODRIGO, DR FONG Consulting Unavailable RODRIGO, DR FONG Attending Unavailable BALL, DR FONG Admitting Unavailable BALL, DR FONG Primary Care Unavailable BALL, DR FONG Consulting Unavailable RODRIGO, DR FONG [...] HUNTER Consulting Unavailable MOUKARBEL, BRANDT Attending Unavailable MOUKARBEL, BRANDT Admitting Unavailable RODRIGO, DR FONG Primary Care Unavailable JOSEPHINE, LORRAINE Pratt Referring Unavailable BALL, SON Draper Primary Care Unavailable JOSEPHINE, LORRAINE Pratt Attending Unavailable JOSEPHINE, LORRAINE Pratt Referring Unavailable BALL, SON E Primary Care Unavailable JOSEPHINE, LORRAINE Pratt Attending Unavailable JOSEPHINE, LORRAINE Pratt Referring Unavailable BALL, SON E Primary Care Unavailable JOSEPHINE, LORRAINE Pratt Admitting Unavailable JOSEPHINE, LORRAINE Pratt Attending Unavailable JOSEPHINE, LORRAINE Pratt Referring Unavailable YIN, BACILIO Pratt Attending Unavailable BALL, SON E Primary Care Unavailable GIBBS, ABI T Attending Unavailable GIBBS, ABI T Referring Unavailable GIBBS, ABI Barbour Attending Unavailable JOSEPHINE, LORRAINE Pratt Attending Unavailable JOSEPHINE, LORRAINE Pratt Attending Unavailable JOSEPHINE, LORRAINE Pratt Attending Unavailable GIBBS, ABI T Referring Unavailable JOSEPHINE, LORRAINE Pratt Attending Unavailable JOSEPHINE, LORRAINE Pratt Referring Unavailable JOSEPHINE, LORRAINE Pratt Attending Unavailable APLING, RUFINO Corrales Attending Unavailable DALE WILSON Attending Unavailable APLING, RUFINO Corrales Attending Unavailable NADIA GILL Attending Unavail able APLING, RUFINO Corrales Referring Unavailable MOUKARBEL, BRANDT Attending Unavailable MOUKARBEL, BRANDT Attending Unavailable Son Wallace DO Primary Care Provider Fam Fernandez MD Attending Provider Fam Fernandez Attending Unavailable Fam Fernandez Admitting Unavailable Son Wallace Primary Care Unavailable Son Wallace DO Primary Care Provider [phone] Son Wallace DO Attending Provider [phone] Rachelle Whitfield Admitting Unavailable Rachelle Whitfield Attending Unavailable Rachelle Whitfield Attending Unavailable Rachelle Whitfield Attending Unavailable Rachelle Whitfield Admitting Unavailable Allergies Allergy ClassificationReported Allergen(s)Allergy TypeDate of OnsetReaction(s) Facility (4 sources)Hmg-Coa Reductase Inhibitors (Statins); Translations: [statins]Drug allergyUnknown (qualifier value)[facility] (4 sources)black walnut pollen extract; Translations: [OTGNFYZ-EIP-VKG REDUCTASE INHIBITORS]Drug Wacqljh39-16-5120Zii [facility] (4 sources)Jlhdwxf-BGG-YrF Reductase Inhibitor; Translations: [Qqyglyb-NVN-RnV Reductase Inhibitor]Propensity to adverse vxkfpewcp64-02-5816Kwpwse Pain [facility] Medications Current Medications MedicationDrug Class(es)DatesSig (Normalized)Sig (Original)Alendronate (3 sources)BisphosphonateStart: 79-57-8576uustbpk fosamax Start Date: 03/18/19 Status: Ordered Repeat number: 1Start: 84-75-0730uvkzzth fosamax Start Date: 03/18/19 Status: Ordered1 ml alirocumab 150 mg/ml auto-injector (3 sources)PCSK9 InhibitorStart: 50-29-5380nrbpso 150 mg by subcutaneous injection every other weekAlirocumab (Praluent Pen) 150 mg/mL pen injector Active 150 MG SUBCUT EVERY 2 WEEKS June 04, 2023 12:00am Complies with drug therapyStart: 26-91-8329Ymgjquhn Syringe 75 mg/mL subcutaneous solution SubCutaneous, Refills(s) 0 Start Date: 03/18/19 Status: Ordered Repeat number: 1 Alirocumab (Praluent Pen) 150 mg/mL pen injector (5 sources)Start: 18-63-4691odbnao 150 mg by subcutaneous injection every other weekAlirocumab (Praluent Pen) 150 mg/mL pen injector Active 150 MG SUBCUT EVERY 2 WEEKS June 04, 2023 12:00amAspirin (3 sources)Platelet Aggregation Inhibitor, Nonsteroidal Anti-inflammatory Drug Start: 34-34-7680cakspkj 81 mg, Refills(s) 0 Start Date: 03/18/19 Status: Ordered Repeat number: 1Start: 60-82-5040rmknduw 81 mg, Refills(s) 0 Start Date: 03/18/19 Status: Orderedbempedoic acid 180 mg oral tablet (6 sources)Start: 74-46-6983Amqibpfm 180 mg oral tablet 180 mg = 1 tab(s) Start Date: 12/24/24 Status: Ordered Repeat number: 1Start: 78-40-2997laow 1 tablet by mouth once dailyBempedoic Acid (Nexletol) 180 mg tablet Active 180 MG PO Daily August 15, 2023 12:00am Complies withdrug therapyBiotin (1 source)Start: 34-84-1542jqknjr Daily Start Date: 12/24/24 Status: Ordered Repeat number: 124 hr buPROPion hydrochloride 300 mg extended release oral tablet (20 sources)AminoketoneStart: 05-23-2023 End: 46-85-8094ermi 1 tablet by mouth once dailyBupropion Hcl 300 mg tablet extended release 24 hr Active 0 .ROUTE .COMPLEX September 10, 2024 7:33am TAKE 1 TABLET BY MOUTH DAILY Complies with drug therapyStart: 05-08-2023 End: 08-76-8219hisu 1 tablet by mouth once dailyBupropion Hcl 300 mg tablet extended release 24 hr Discontinued 300 MG PO Daily May 08, 2023 6:25pm May 23, 2023 12:25pmStart: 71-36-8557eots 1 tablet by mouth every twenty-four hoursbuPROPion 300 mg XL /24 hrs mg tab(s), Oral, q24hr, Refills(s) 0 Start Date: 01/20/20 Status: Ordered Repeat number: 1Start: 69-33-4709huca 1 tablet by mouth every twenty-four hoursbuPROPion 300 mg XL /24 hrs mg tab(s), Oral, q24hr, Refills(s) 0 Start Date: 01/20/20 Status: Ordered Mwjybfhtvhr-Uixtefzzq-Xmzpkgaz (6 sources)Anticholinergic, Corticosteroid, beta2-Adrenergic AgonistStart: 23-13-9420Teynpbatkbq-Umeclidin-Vilanter (Trelegy Ellipta) 100-62.5-25 mcg blister with device Active 1 INH INHALATION Daily June 04, 2023 12:00am Complies with drug therapyStart: 22-20-5645Lwhcdsytnpr-Umeclidin-Vilanter (Trelegy Ellipta) 100-62.5-25 mcg blister with device Active 1 INH INHALATION Daily June 04, 2023 12:00amhydroCHLOROthiazide 25 mg oral tablet (14 sources)Thiazide DiureticStart: 08-19-2023 End: 41-71-6714uhnk 1 tablet by mouth once dailyHydrochlorothiazide 25 mg tablet Active 0 .ROUTE .COMPLEX July 05, 2024 8:50pm TAKE 1 TABLET BY MOUTH ONCE DAILY Complies with drug therapyStart: 01-18-2022 End: 47-25-8225bcuv 1 tablet by mouth once dailyHydrochlorothiazide 25 mg tablet Discontinued 25 MG PO Daily June 04, 2023 12:00am August 19, 2023 6:39am Start: 17-03-4735yubs 1 tablet by mouth twice dailyhydrochlorothiazide 25 mg Tab 25 mg = 1 tab(s), Oral, BID, # 180 tab(s), Refills(s) 3, Pharmacy: [facility], 162, cm, 03/16/20 8:23:00 EST, Height/Length Dosing, 68.7, kg, 03/16/20 8:23:00 EST, Weight Dosing Start Date: 12/12/20 Status: OrderedMetoprolol (6 sources)beta-Adrenergic BlockerStart: 77-72-5295vyirvguszh 25 mg Start Date: 12/24/24 Status: Ordered Repeat number: 1Start: 31-76-5437yfhd 1 tablet by mouth once dailyMetoprolol Succinate 25 mg tablet extended release 24 hr Active 25 MG PO Daily August 15, 2023 12:00am Complies with drug therapyMultivitamin (Daily Multi-Vitamin) tablet (6 sources)Start: 64-58-2914nryb 1 tablet by mouth once dailyMultivitamin (Daily Multi-Vitamin) tablet Active 1 TAB PO Daily June 04, 2023 12:00am Complies wi th drug therapyStart: 28-36-1757vjop 1 tablet by mouth once dailyMultivitamin (Daily Multi-Vitamin) tablet Active 1 TAB PO Daily June 04, 2023 12:00am neocell super collagen 5000mcg (3 sources)Start: 34-83-3191vrybexe super collagen 5000mcg neocell super collagen 5000mcg Start Date: 01/20/20 Status: Ordered Repeat number: 1Start: 79-38-1858nuascxk super collagen 5000mcg neocell super collagen 5000mcg Start Date: 01/20/20 Status: Orderednystatin 270330 unt/ml oral suspension (1 source)Polyene AntifungalStart: 51-69-1027lyoq 1 mL by mouth four times daily Nystatin 100,000 unit/mL suspension Active 5 ML PO Four times daily 200 November 06, 2024 12:00am swish for 30 seconds and swallow Complies with drug therapyPraluent Syringe 75 mg/mL subcutaneous solution (1 source)Start: 84-60-1998Visidvco Syringe 75 mg/mL subcutaneous solution SubCutaneous, Refills(s) 0 Start Date: 03/18/19 Status: Orderedsennasides 8.6 mg (3 sources)Start: 65-24-2915tfrzolwzke 8.6 mg sennasides 8.6 mg Start Date: 01/20/20 Status: Ordered Repeat number: 1Start: 23-58-6862vwffzwtjkm 8.6 mg sennasides 8.6 mg Start Date: 01/20/20 Status: OrderedVitamin B-12 1000 mcg/mL injectable solution (2 sources)Start: 65-29-2654Fbucydt B-12 1000 mcg/mL injectable solution IntraMuscular, qMonth, Refills(s) 0 Start Date: 03/18/19tatus: Ordered Repeat number: 1Start: 68-73-2014Pntfjlg B-12 1000 mcg/mL injectable solution IntraMuscular, qMonth, Refills(s) 0 Start Date: 03/18/19tatus: Orderedvitamin b12 1 mg/ml injectable solution (10 sources)Vitamin J61Lcpng: 67-26-8477qdabeu 1 mL by intramuscular injection every monthCyanocobalamin (Vitamin B-12) 1,000 mcg/mL solution Active 0 .ROUTE .COMPLEX 3 April 13, 2024 10:21am INJECT 1ML INTRAMUSCULARLY MONTHLY (DISCARD 28 DAYS AFTER FIRST USE) Complies with drug therapyStart: 06-04-2023 End: 12-89-3159gcisjg 1000 ug by intramuscular injection every month Cyanocobalamin (Vitamin B-12) 1,000 mcg/mL solution Discontinued 1000 MCG IM every month June 04, 2023 12:00am April 13, 2024 10:22amStart: 06-04-2023 inject 1000 ug by intramuscular injection every monthCyanocobalamin (Vitamin B- 12) Active 1000 MCG IM every month June 04, 2023 12:00amStart: 03-18-2019 Vitamin B-12 1000 mcg/mL injectable solution IntraMuscular, qMonth, Refills(s) 0 Start Date: 03/18/19tatus: OrderedVitamin D3 (3 sources)Start: 67-59-4099Ktxbfqm D3 Daily, Refills(s) 0 Start Date: 03/18/19 Status: Ordered Repeat number: 1Start: 52-20-4703Khlyscd D3 Daily, Refills(s) 0 Start Date: 03/18/19 Status: Ordered Completed/Discontinued Medications MedicationDrug Class(es)DatesSig (Normalized)Sig (Original)[id number] 200 actuat albuterol 0.09 mg/actuat metered dose inhaler (6 sources)beta2-Adrenergic AgonistStart: 06-04-2023 End: 56-89-7065gayj 1 puff(s) by inhalation every four hours as neededAlbuterol Sulfate (Proventil Hfa) 90 mcg/actuation HFA aerosol inhaler Discontinued 2 PUFF INHALATION Every 4 hours as needed June 04, 2023 12:00am May 29, 2024 1:39pmcefdinir 300 mg oral capsule (1 source)Cephalosporin AntibacterialStart: 30-03-5120amvh 1 capsule by mouth every twelve hours in the morningcefdinir 300 mg Cap 300 mg = 1 cap(s), Oral, q12hr, historical med that I am not familiar how to enter nor why staff did not have this entered, # 1 cap(s), Refills(s) 0, other reason (Rx) Start Date: 12/23/19 Status: Orderedcephalexin 500 mg oral capsule (6 sources)Cephalosporin AntibacterialStart: 02-05-2017 End: 40-21-2770vddv 1 g by mouth twice dailyCephalexin (Keflex) 500 mg capsule Discontinued 1 GM PO Twice daily 05 10February 05, 2017 [facility]:38amclopidogrel 75 mg oral tablet (6 sources)P2Y12 Platelet InhibitorStart: 06-04-2023 End: 57-24-2297khsv 1 tablet by mouth once dailyClopidogrel (Plavix) 75 mg tablet Discontinued 75 MG PO Daily June 04, 2023 12:00am August 15, 2023 9:29amesomeprazole 40 mg delayed release oral capsule (6 sources)Proton Pump InhibitorStart: 06-04-2023 End: 16-96-9656nxha 1 capsule by mouth twice dailyEsomeprazole Magnesium 40 mg capsule,delayed release(DR/EC) Discontinued 40 MG PO Twice daily 2023 12:00am May 29, 2024 1:40pmlubiprostone 0.008 mg oral capsule (6 sources)Chloride Channel ActivatorStart: 06-04-2023 End: 96-99-8465ryil 1 capsule by mouth twice dailyLubiprostone 8 mcg capsule Discontinued 8 MCG PO Twice daily June 04, 2023 12:00am May 29, 2024 1:40pmStart: 06-04-2023 End: 55-13-5944idsf 1 capsule by mouth twice dailyLubiprostone 8 mcg capsule Discontinued 8 MCG PO Twice daily June 04, 2023 12:00am May 29, 2024 1:40pmStart: 90-48-1946nsgy 8 ug by mouth twice dailyLubiprostone Active 8 MCG PO Twice daily June 04, 2023 12:00ampotassium citrate 10 meq extended release oral tablet (15 sources)Start: 64-59-2381wkihbusxa CITRATE 10 mEq ER Tab 10 mEq, 1 tab(s), BID Start Date: 12/24/24 Status: Ordered Repeat number: 1Start: 07-08-2023 End: 79-33-5137pijg 2 tablets by mouth twice daily at mealtimePotassium Citrate 10 mEq (1,080 mg) tablet extended release Active 0 .ROUTE .COMPLEX 360 September 8:53am TAKE 2 TABLETS BY MOUTH TWICE DAILY WITH MEALS Complies with drug therapyStart: 06-04-2023 End: 32-77-6001qdyu 1 tablet by mouth once dailyPotassium Citrate 10 mEq (1,080 mg) tablet extended release Discontinued 20 MEQ PO Daily June 04, 2023 12:00am July 08, 2023 10:03pmStart: 06-19-2021 End: 43-07-6341laev 2 tablets by mouth once dailypotassium CITRATE 10 mEq ER Tab 20 mEq, 2 tab(s), Oral, Daily for 90 day(s), 180 tab(s), Refill(s) 3, [facility], 162, cm, 06/19/21 14:57:00 EDT, Height/Length Dosing, 74.5, kg, 06/19/21 14:57:00 EDT, Weight Dosing Start Date: 06/19/21 Stop Date: 06/14/22 Status: OrderedStart: 06-19-2021 End: 29-00-6857jxfj 2 tablets by mouth twice dailypotassium CITRATE 10 mEq ER Tab 20 mEq, 2 tab(s), Oral, BID for 90 day(s), 360 tab(s), Refill(s) 3,[facility], 162, cm, 06/19/21 14:57:00 EDT, Height/Length Dosing, 74.5, kg, 06/19/21 14:57:00 EDT, Weight Dosing Start Date: 06/19/21 Stop Date: 06/14/22 Status: Orderedsucralfate 1000 mg oral tablet (6 sources)Aluminum ComplexStart: 06-04-2023 End: 05-26-4809dsgz 1 tablet by mouth four times dailySucralfate (Carafate) 1 gram tablet Discontinued 1 GM PO Four times daily June 04, 2023 12:00am May 29, 2024 1:40pm Problems Active Problems Problem ClassificationProblemDateDocumented DateEpisodic/ChronicAbdominal pain (3 sources)Flank vige88-02-7783BpngncanFavbd cerebrovascular disease (3 sources)Hematoma of subdural space of wzignxqh78-30-3238UwgxytwEbhpfeu disorders (6 sources)Generalized anxiety disorder; Translations: [Generalized anxiety disorder]19-76-4083ZstptoeUlxnuflx of urinary tract (10 sources)Kidney stone; Translations: [Calculus of kidney]Onset: 06-19-2021 EpisodicCancer of uterus (3 sources)History of malignant neoplasm of uterine avlj74-19-7855Hibvxdqe Chronic obstructive pulmonary disease and bronchiectasis (19 sources)Acute exacerbation of chronic obstructive airways disease; Translations: [Chronic obstructive pulmonary disease with (acute) exacerbation] Onset: 256837-44-0841IetadudRbmbyda on above:LDCT: no suspicious nodules - oronary atherosclerosis and other heart disease (17 sources)Atherosclerotic heart disease of circle coronary artery without angina pectoris; Translations: [Coronary arteriosclerosis]Onset: 06-27-2022 93-79-9194BhbasmlQayfvexr atherosclerosis and other heart disease (2 sources)Presence of coronary angioplasty implant and graft; Translations: [Presence of coronary angioplastyimplant and graft]Onset: 99-67-4559Lifslbqm Disorders of lipid metabolism (20 sources)Hypercholesterolemia; Translations: [Hyperlipidemia]Onset: 435031-82-6889TfjtfehByblgrbpzm disorders (10 sources)Gastroesophageal reflux disease; Translations: [Gastro-esophageal reflux disease without esophagitis]40-00-1348FmdhtwyRxckxtweg hypertension (17 sources)Hypertensive disorder; Translations: [Essential (primary) hypertension]Onset: 335103-21-3888YewnbluTwwwxwasyhurv symptoms and ill- defined conditions (14 sources)Delay when starting to pass urine; Translations: [Increased frequency of urination]Onset: 070280-21-1586ZfkanazlXsxxcfd and fatigue (5 sources)Fatigue; Translations: [Other fatigue]53-48-3155SpoyhnoePtqilgxtxu disorders (6 sources)Atrophic vaginitis; Translations: [Postmenopausal atrophic vaginitis] 11-14-3772XtcvvcsVyfbrevhydnjn mental health disorders (5 sources)Primary insomnia; Translations: [Primary insomnia]25-83-5925Calijle Osteoporosis (6 sources)Senile osteoporosis; Translations: [Age-related osteoporosis without current pathological fracture]Onset: 459290-99-5044ScqhpwoQapqx diseases of kidney and ureters (3 sources)Diverticulum of renal kukwa56-12-7832CrjdqtfYroxk endocrine disorders (3 sources)Disorder of endocrine system; Translations: [Endocrine disorder, unspecified]29-71-3897GhyufteuAozor lower respiratory disease (4 sources)Shortness of breath; Translations: [SHORTNESS OF BREATH]Onset: 75-52-0902JsudkiebAoxmg lower respiratory disease (5 sources)Nodule of lung; Translations: [Solitary pulmonary nodule]07-08-2023 EpisodicComment on above:LDCT: 6mm, 4mm RUL nodule - 06/2023LDCT: resolution of RUL nodule - 04/2024LDCT: 6mm RLL, 4mm RUL nodule - 06/2023LDCT: resolution of RUL nodule - 04/2024Other lower respiratory disease (2 sources)Solitary pulmonary nodule; Translations: [Solitary pulmonary nodule] 30-97-7915AzhxiudrPsuwt screening for suspected conditions (not mental disorders or infectious disease) (14 sources)Encounter for screening mammogram for malignant neoplasm of breast; Translations: [Encounter for screening for malignant neoplasm of colon]Onset: 41-65-8296JntmetdoVeepieip codes; unclassified (1 source)Family history of malignant neoplasm of trachea, bronchus and lung; Translations: [FAM HX MALIG NEOPLSM TRACH BRON LNG]Onset: 17-42-6850Vxpklxsi Residual codes; unclassified (2 sources)Other specified health status; Translations: [Other specified health status]Onset: 08-32-0303ZrtkfvjuRecqxcfy codes; unclassified (3 sources)Menopause present; Translations: [Asymptomatic menopausal state] 21-47-9748XkaumsgjWqmjskyhf and history of mental health and substance abuse codes (4 sources)Personal history of nicotine dependence; Translations: [PERSONAL HISTORY OF NICOTINE DEPEND]Onset: 32-32-8080CjfqioeqMqfvrcgrr-related disorders (5 sources)Nicotine dependence; Translations: [Nicotine dependence, unspecified, uncomplicated]59-12-7371GnufbfyAufyija (6 sources)Syncope; Translations: [Syncope and collapse]39-31-1701Ahhupajg Comment on above:Problem List clean-up per request of Phys. EHR CmteUnclassified (3 sources)Drug therapy -06-1427Cclfhtikcngf (3 sources)ACUTE COUGH; Translations: [ACUTE COUGH]Onset: 36-80-9691Dghribyeciuf (1 source)left shoulder rotator cuff tearOnset: 97-68-7445Xewysda tract infections (3 sources)Chronic lblykqsa34-63-9562GpfolgzKkvphcn tract infections (9 sources)Urinary tract infectious disease; Translations: [Urinary tract infection, site not specified]47-05-7594SeqzjlwzLiabbpg on above:Problem List clean-up per request of Phys. EHR Cmte Past or Other Problems Problem ClassificationProblemDateDocumented DateEpisodic/ChronicUnclassified (3 sources)Atrophy of left -17-4688Wdpweuharzkf (2 sources)cardiac( Confirmed )02-28-4038Jnvoopxulwup (2 sources)low potassium( Confirmed )26-13-4830Ipipdqwehghf (1 source)ACUTE COUGH; Translations: [ACUTE COUGH]Onset: 38-51-5958Ksyrhejlkste (1 source)sjldyja08-36-1129Ivpuzlehilff (1 source)low gktiazweh00-91-2603 Results Test NameValueInterpretationReference RangeFacilityAmbulatory Visit Summaryon 59-15-4036Ihfoesxayw Visit SummaryAmbulatory Visit Summary PAM SNOW :1960 Visit Date:12/24/2024 Ambulatory Visit Instructions Your Diagnosis Kidney stone Urinary hesitancy Tests Performed CT Abdomen/Pelvis w/o Contrast -- Results Pending -- Please visit your patient portal for your results or contact your primary care physician. Your Care Team Attending Physician - Nahid KELLY, Rachelle Monroe Primary Care Physician - SON WALLACE DO This Is Your Medications List bempedoic acid (Nexletol 180 mg oral tablet) biotin metoprolol Contact prescribing physician if questions or concerns Misc Prescription (fosamax) Misc Prescription (sennasides 8.6 mg) Non-Formulary Medication (neocell super collagen 5000mcg) alirocumab (Praluent Syringe 75 mg/mL subcutaneous solution) aspirin buPROPion (buPROPion 300 mg XL /24 hrs) cholecalciferol (Vitamin D3) cyanocobalamin (Vitamin B-12 1000 mcg/mL injectable solution) hydrochlorothiazide (hydrochlorothiazide 25 mg Tab) potassium citrate (potassium CITRATE 10 mEq ER Tab) Procedures Performed Cystoscopy (05/27/2018), Cystoscopy (12/03/2017), Cystoscopy (09/27/2016), [facility] - Extracorporeal shockwave lithotripsy for renal calculus (08/16/2016), [facility] - Extracorporeal shockwave lithotripsy forrenal calculus (07/26/2016), Cystoscopy (06/27/2015), Cystoscopy (08/10/2014), E[facility] - Extracorporeal shockwave lithotripsy for renal calculus (06/12/2012), [facility] - Extracorporeal shockwave lithotripsyfor renal calculus (05/15/2012), Cystoscopy (03/13/2012), Sling procedure of bladder neck (09/13/2011), Sling procedure of bladder neck (08/23/2011), Cystoscopy (07/16/2011), Cystoscopy (06/27/2009),Urodynamics (06/27/2009), [facility] - Extracorporeal shockwave lithotripsy for renal calculus (02/17/2009), [facility] - Extracorporeal shockwave lithotripsy for renal calculus (01/20/2009), Hysterectomy, hysterectomy, kidney surgery, Placement of stent in cardiac conduit, Procedure on shoulder, stents. What to do next You Need to Schedule the Following Appointments Follow Up with Nahid KELLY, Rachelle Monroe, URL, URO When: Comments: f/u pending CT scan Where: [address], [place] [address] [phone] You Need to Complete the Following Basic Metabolic Panel, Blood, Routine collect, 12/24/24, Order for future visit, Lab Collect, Kidney stone, Print Label By Order Location Uric Acid, Blood, Routine collect, 12/24/24, Order for future visit, Lab Collect, Kidney stone, Print Label By Order Location Medications What How Much When Instructions Unchanged bempedoic acid (Nexletol 180 mg oral tablet) 1 Tablets Unchanged biotin Every day Unchanged metoprolol 25 Milligram Unchanged alirocumab (Praluent Syringe 75 mg/ mL subcutaneous solution) Subcutaneous Contact prescribing physician if questions or concerns Unchanged aspirin 81 Milligram Contact prescribing physician if questions or concerns Unchanged buPROPion (buPROPion 300 mg XL / 24 hrs) By Mouth Every 24 hours Contact prescribing physician if questions or concerns Unchanged cholecalciferol (Vitamin D3) Every day Contact prescribing physician if questions or concerns Unchanged cyanocobalamin (Vitamin B-12 1000 mcg/ mL injectable solution) Intramuscular Once a monthContact prescribing physician if questions or concerns Unchanged hydrochlorothiazide (hydrochlorothiazide 25 mg Tab) 1 Tablets By Mouth 2 times a day Contact prescribing physician if questions or concerns Unchanged Misc Prescription (fosamax) 0 Contact prescribing physician if questions or concerns Unchanged Misc Prescription (sennasides 8.6 mg) 0 Contact prescribing physician if questions or concerns Unchanged Non-Formulary Medication (neocell super collagen 5000mcg) Contact prescribing physician if questions or concerns Unchanged potassium citrate (potassium CITRATE 10 mEq ER Tab) 1 Tablets Contact prescribing physician if questions or concerns Allergies statins (Unknown) Problems Ongoing - Any problem that you are currently receiving treatment for. Anticoagulated Calyceal diverticulum Chronic cystitis Flank pain Frequent urination Hesitancy History of uterine cancer htn Hyperlipidemia Kidney stone Microscopic hematuria Nocturia Subdural hematoma Urinary hesitancy UTI (urinary tract infection) Historical - Any problem that you are no longer receiving treatment for. cardiac High cholesterol Hyperlipidemia low potassium Renal atrophy, left Patient Survey You may receive a survey via text or e-mail asking about your office visit. Please share your experience with us by completing your survey. We appreciate your feedback and thank you for choosing us for your care. Education Materials Kidney Stones Kidney stones are rock-like masses that form inside of the kidneys. Kidneys are organs that make pee (urine). A kidney stone may move into other parts of the urinary tract, including: ??? The tubes that connect th (more content not included)...NormalUc Medical CenterBMPon 58-95-7550Tavqj gap [Moles/Vol]9 mmol/LNormal6-16Uc Medical CenterComment on above:Performed By: #### [id number] #### [facility] [address], [place] [address]MGM/Creat Ratio27 No PtwiiZkrd26-22MovvufUc Medical Center Comment on above:Performed By: #### [id number] #### [facility] [address], [place] [address]Fbsdecy [Mass/Vol]9.6 mg/dLNormal8.9-11.1FCleveland Clinic Medina HospitalComment on above:Performed By: #### [id number] #### [facility] [address], [place] [address]Qrjiigot [Moles/Vol]105 mmol/QHfmztw806-158VhbhpoUc Medical CenterComment on above:Performed By: #### [id number] #### [facility] [address], [place] [address]RP3 [Moles/Vol]29 mmol/ZKepwlp14-66ZdqhuwUc Medical Center Comment on above:Performed By: #### [id number] #### [facility] [address], [place] [address]Cxdekvfvdk [Mass/Vol]0.7 mg/dLNormal0.5-1.3FCleveland Clinic Medina HospitalComment on above:Performed By: #### [id number] #### [facility] [address], [place] [address]Pvpjkms [Mass/Vol]97 mg/vDNlccvf83-537FoxiguUc Medical CenterComment on above:Performed By: #### [id number] #### [facility] [address], [place] [address]Lgccgppde [Moles/Vol]4.4 mmol/LNormal3.5-5.3FCleveland Clinic Medina HospitalComment on above:Performed By: #### [id number] #### [facility] [address], [place] [address]Rhdoqy [Moles/Vol]139 mmol/RZptois604-996HjucoyUc Medical CenterComment on above:Performed By: #### [id number] #### [facility] [address], [place] [address]Krqc nitrogen [Mass/Vol]19 mg/dLNormal5-21Uc Medical CenterComment on above:Performed By: #### [id number] #### [facility] [address], [place] [address]Iowg Acidon 04-83-9817Vsplp [Mass/Vol]7.5 mg/dLHigh2.2-7.4 Uc Medical CenterComment on above:Performed By: #### [id number] #### [facility] [address], [place] [address]Nztedyv Office/Clinic Noteon 97-45-5013Cupmaue Office/Clinic NoteUrology Office/Clinic Note HPI Staff 64 year old female here for hesitation due to multiple previous stones Previous DX: kidney stones Pt. last seen 12/07/21 KUB done 12/16/24 PVR 41mL BBSQ 11 Pt. states occasionally will have some hesitation to urinate. Pt. denies having incontinence Pt. denies having pain with urination Pt. denies having gross hematuria Pt. denies having abd pain Pt. denies having flank pain History of Present Illness Tests reviewed: reviewed UA, PVR, BMPs, KUB I have reviewed the previous health record information and history for this patient from Dr. Whitfield. I have reviewed and verified the staff HPI to be accurate for this encounter. Review of Systems ROS - Provider [...] no anxiety. Genitourinary: See HPI. Physical Exam General Appearance: alert , no acute distress, well nourished, well developed female. Assessment/Plan Previous patient of Dr. Guardado's with history of kidney stones S/P ESWL done 2017. Lost to f/u, pt states she was not having issues. Was unaware of our multiple attempts to contact her. Discharge policy discussed now. Considered new pt since she was last seen 11/2021. 1. Kidney stone (N20.0: Calculus of kidney) s/p BL PCNL in the past including open nephrolithotomy for partial staghorn many years ago 24 HR urine done 02/15/20 showed levels within normal limits. CT AP 12/2019 -small BL punctate nephrolithiasis and stone within left upper calyceal diverticulum,no obvious renal atrophy noted KUB 03/12/20 stable 10mm left nephrolithiasis KUB 05/05/2021 punctate B/L nephrolithiasis, stable 10mm LUP calcification within calyceal diverticulum. On Hydrochlorothiazide 25mg BID for the past year. [...] metabolic stone work-up w/up: positive changes - Ca decreased, excellent citrate, oxalate minimally high but within normal limits, excellent volume. Still mildly elevated sodium. No potassium labs were done, otherwise serum within normal limits, uric acid back down to normal with diet. Pt. states she switched to a Mediterranean diet. Pt was called 05/21/22 due to low K. Pt was to repeat labs but was unable to contact pt. KUB 12/16/24 [facility] - Both kidneys partially obstructed. Still a 4 mm calcified stone at RLP. Similar calcifications at L mid to upper pole, up to 8 mm. No suspect ureteral stones present. Reports some lower abdominal pain and urinary hesitancy. Reviewed KUB results with pt, no evidence of stone passage/obstruction to indicate cause of pain or urinary issues. UA neg for blood. Discussed CT to further evaluate as it is a more definitive study. Taking Potassium citrate 20mg bid, HCTZ 25 mg qd (med list indicates bid however, this was changed). No longer using ranch powder seasoning, has decreased overall sodium in her diet. Still on Mediterranean diet somewhat, states she is currently doing weigh-watchers. Advised pt she is overdue for repeat labs given prior K level was low while on medical mgmt. Will make med adjustments based on new labs and CT. -Decrease sodium intake -Continue other healthy dietary modifications -Will draw BMP, uric acid IO today and call pt with results. -Schedule CT AP wo con @ [facility]. Will call pt with results. If ureteral stone present, MET and then URS if unable to pass. If growth of stones, will obtain repeat litholink 2. Urinary hesitancy (R39.11: Hesitancy of micturition) BBS 11. PVR 41 mL. UA shows trace leuks. Asx. Hesitation in starting stream. Occurs occasionally. Not bothersome enough to warrant treatment. Discussed how this is not caused by non obstructing kidney stones Follow-up With When Contact Information Nahid KELLY, Rachelle Monroe, URL, [address], [place] [address]- [phone] Additional Instructions: f/u pending CT scan Patient Education Kidney Stones, Tduu-eb-Cbcw IPam, personally scribed for Dr. Whitfield on 12/24/2024 09:36:29. . Documentation recorded by the ozzyibPam draper, accurately reflects the services(s) I performed and decisions made by me. Authenticat (more content not included)...[facility] Reserve HospitalComment on above:Result Comment: Electronically Signed By: Rachelle Whitfield MD\.br\Date and Time Signed: 12/24/24 11:40EDT\.br\Electronically Co-Signed By: Pam Villanueva\.br\Date and Time Co- Signed: 12/24/24 09:38 EDTeGFRon 47-15-9963fHZI40 mL/min/1.73 m1Izeeww>=59Uc Medical CenterComment on above:Performed By: #### [id number] #### [facility] [address] [place], [place] [address]Esk 06-12-2024L Specimen: [id number] Received: 06/12/24 Status: LOTUS Williams Num: [id number] Spec Type: Surgical Subm Dr: Fam Fernandez MD Tissues: A Colon Biopsy (DESCENDING COLON POLYPS) B Colon Biopsy (SIGMOID COLON POLYP) Procedures: HE/4, Gross/Micro L4/2 Age/ Patient Sex Location Account Attending Physician Pam Snow Jolly 64/F [id number] Fam Fernandez MD SPEC NUM: [id number] RECD: 06/12/24 STATUS: LOTUS WILLIAMS NUM: [id number] MADELYN: 06/12/24 [facility] DR: Fam Fernandez MD ENTERED: 06/12/24 [facility] DR: LEONA TYPE: Surgical DEPT: S ENTERED BY: [id number] RECV BY: [id number] ORDERED: HE/4, Gross/Micro L4/2 ORDERED: HE/4, Gross/Micro [...] submitted in a single cassette. (1, ns, [id number] A) Part B is received in formalin labeled [...] the 2 smaller polyps intact. (1, ns, B)ABEBE Specimen: Received: 06/12/24 Status: LOTUS Love Num: [id number] Spec Type: Surgical Subm Dr: Fam Fernandez MD Tissues: A Colon Biopsy (DESCENDING COLON POLYPS) B Colon Biopsy (SIGMOID COLON POLYP) Procedures: KY/Ana, Migdalia/Missy L4/2 Patient: Pam Snow [id number] (Continued) Signed (signature on file) Sridevi Pratt MD 06/15/[address] [place] [address] Physician GroupOffice Visiton 90-91-4250Fxpnan-up visit [id number] Pam Snow 1960 F Date Provider Department Center 01/29/2024 [facility] Family History Problem Relation Age of Onset Other Mother Coronary artery disease Sister Peripheral vascular disease Sister Coronary artery disease Brother Heart failure Brother Atrial fibrillation Brother Family Status - Relation Status Age at Mother Sister Brother Level of Service:23542 [place] OFFICE/OUTPATIENT ESTABLISHED LOW MDM 20 [facility]36on 90-39-277454Ctkusovpk liver and lipid panel performed on 11/19/2023: MD Marilu Robles MA Her LDL is down to 75 from 204. This is great result. I can see her in 3 months. Patient made aware. Scheduled her an apt for Jan 2024.NormalUnOhioHealth Grady Memorial HospitalCholesterol in LDL Calc [Mass/Vol]on 40-48-8606Riqxyslalwc in LDL [Mass/Vol]75.6 mg/dLSumma Health Wadsworth - Rittman Medical CenterComment on above:<100 mg/dl VWKQDTE896-365 mg/dl NEAR OR ABOVE EJTIEGM706-560 mg/dl BORDERLINE GMLV408-404 mg/dl HIGH>190 mg/dl VERY HIGHCholesterol in VLDL Calc [Mass/Vol]on 71-97-5523Vfpixohqvqk in VLDL [Mass/Vol]12.4 mg/dLSumma Health Wadsworth - Rittman Medical CenterGlobulin Calc (S) [Mass/Vol]on 73-11-5423Kqtxvitm (S) [Mass/Vol]3.1 g/dL [facility] Medical CenterLaboratory - Chemistry and Chemistry - challengeon 21-27-2633Oyibbdv [Mass/Vol]3.4 g/dL3.4-5.0[facility] Ritt[facility] Medical CenterALP [Catalytic activity/Vol]52 U/D15-086RdqsxjiemSumma Health Wadsworth - Rittman Medical CenterALT [Catalytic activity/Vol]32 U/J85-25DzxavioapSumma Health Wadsworth - Rittman Medical Center AST [Catalytic activity/Vol]21 U/Q74-20NrvktzqarSumma Health Wadsworth - Rittman Medical Center Bilirubin [Mass/Vol]0.6 mg/dL0.2-1.0[facility] Bilirubin.direct [Mass/Vol]0.1 mg/dL0.0-0.2FKettering Health Hamilton Cholesterol [Mass/Vol]144 mg/dL<=200Sum[facility] - Ritt[facility] Medical CenterCholesterol in HDL [Mass/Vol]56 mg/uL66-83LmfuxijuqSumma Health Wadsworth - Rittman Medical CenterComment on above:> or =60 mg/dl - LOW CARDIOVASCULAR RISK<40 mg/dl - HIGH CARDIOVASCULAR RISKProtein [Mass/Vol]6.5 g/dL6.4-8.2FKettering Health Hamilton Triglyceride [Mass/Vol]62 mg/dL<=150Children[facility] Hospital for Rehabilitationerum or plasma albumin/globulin mass ratioon 26-29-1070Ubvqsxh/Globulin [Mass ratio]1.1 {ratio}[facility] Hospital for Rehabilitationerum or plasma total cholesterol/high density lipoprotein (HDL) cholesterol mass robyn 11-19-2023 Cholesterol.total/Cholesterol in HDL [Mass ratio]2.6 {ratio}[facility] Ritt[facility] Medical CenterComment on above:3.3 - 4.4 LOW RISK4.4 - 7.1 AVERAGE RISK7.1 - 11.0 MODERATE RISK>11.0 HIGH RISKOffice Visiton 84-42-2719Qtxfdw-up visit [id number] Pam Snow 1960 F Date Provider Department Center 08/07/2023 BRANDT BENJAMIN [facility] Family History Problem Relation Age of Onset Other Mother Coronary artery disease Sister Peripheral vascular disease Sister Coronary artery disease Brother Heart failure Brother Atrial fibrillation Brother Family Status - Relation Status Age at Mother Sister Brother Level of Service:97021 [place] OFFICE/OUTPATIENT ESTABLISHED MOD [facility]burgMR SHOULDER LEFT WO IV CONTRASTon 07-22-2023 MR SHOULDER LEFT WO IV CONTRASTEXAMINATION: MR SHOULDER LEFT WO IV CONTRAST HISTORY: [...] with possible joint bodies. ELECTRONICALLY SIGNED BY: Essence Beebe AvailableBasophils Auto (Bld) [#/Vol]on 08-63-7560Vqbdflnhu (Bld) [#/Vol]0.1 10 3/uL0.0-0.1FKettering Health HamiltonBasophils/100 WBC Auto (Bld)on 67-90-3507Kaqhiziqb/100 WBC (Bld)2.1 %0.2-2.0[facility]itt[facility] Medical CenterCholesterol in LDL Calc [Mass/Vol]on 40-20-1217Jcgrhmhcfnd in LDL [Mass/Vol]204.0 mg/dLSumma Health Wadsworth - Rittman Medical CenterComment on above:<100 mg/dl EHATLDR784-444 mg/dl NEAR OR ABOVE IVLFWDO486-691 mg/dl BORDERLINE CZLH921-693 mg/dl HIGH>190 mg/dl VERY HIGH Cholesterol in VLDL Calc [Mass/Vol]on 62-80-7924Tbpfyjldpdu in VLDL [Mass/Vol] 13.2 mg/dLSumma Health Wadsworth - Rittman Medical CenterEosinophils/100 WBC Auto (Bld)on 64-96-8370Ujrgqhozakv/100 WBC (Bld)5.2 %0.9-7.0[facility] Erythrocyte distribution width Auto (RBC) [Ratio]on 61-34-2174Lbfyluxlifu distribution width (RBC) [Ratio]12.9 %11.0-15.0[facility] Estimated glomerular filtration rate (GFR) non- Americanon 05-31-2023 GFR/1.73 sq M.predicted among non-blacks MDRD (S/P/Bld) [Vol rate/Area] mL/min/{1.73_m2}>=60[facility] Medical CenterGlobulin Calc (S) [Mass/Vol]on 24-31-7116Yqvptmqm (S) [Mass/Vol]3.6 g/dLSumma Health Wadsworth - Rittman Medical CenterHematocrit Auto (Bld) [Volume fraction]on 92-29-5654Kldwjrxgkq (Bld) [Volume fraction]44.0 %36.0-48.0[facility]itt[facility] Medical CenterHemoglobin [Mass/volume] in Bloodon 76-95-1400Esswlogquh (Bld) [Mass/Vol]14.4 g/dL12.0-16.0 [facility] CenterLaboratory - Chemistry and Chemistry - challengeon 87-24-6157Eyszcya [Mass/Vol]3.4 g/dL3.4-5.0[facility]itt[facility] Medical CenterALP [Catalytic activity/Vol]78 U/C31-958LkbpmbycySumma Health Wadsworth - Rittman Medical CenterALT [Catalytic activity/Vol]51 U/P56-63ZyxhtqorySumma Health Wadsworth - Ritt[facility] Medical Center AST [Catalytic activity/Vol]28 U/F65-27MbcgfqieySumma Health Wadsworth - Rittman Medical Center Bilirubin [Mass/Vol]0.5 mg/dL0.2-1.0[facility]itt[facility] Medical CenterCalcium [Mass/Vol]9.1 mg/dL8.5-10.1FKettering Health HamiltonChloride [Moles/Vol] 102 mmol/D19-598SrtzefaojSumma Health Wadsworth - Rittman Medical CenterCholesterol [Mass/Vol]277 mg/dL <=200Sum[facility] Ritt[facility] Medical CenterCholesterol in HDL [Mass/Vol]60 mg/dL40-60 [facility]itt[facility] Medical CenterComment on above:> or =60 mg/dl - LOW CARDIOVASCULAR RISK<40 mg/dl - HIGH CARDIOVASCULAR RISKCO2 [Moles/Vol]29.1 mmol/L21.0-32.0[facility] Ritt[facility] Medical CenterCreatinine [Mass/Vol]0.76 mg/dL 0.55-1.02[facility] Ritt[facility] Medical CenterGFR/1.73 sq M.predicted MDRD (S/P/Bld) [Vol rate/Area]mL/min/{1.73_m2}>=60[facility] Medical CenterGlucose [Mass/Vol]102 mg/iQ62-989XnixtmmrkSumma Health Wadsworth - Rittman Medical CenterPotassium [Moles/Vol] 3.8 mmol/L3.5-5.1FKettering Health HamiltonProtein [Mass/Vol]7.0 g/dL 6.4-8.2FBarnesville Hospitalodium [Moles/Vol]141 mmol/X090-599 [facility] Medical CenterTriglyceride [Mass/Vol]66 mg/dL<=150Sum[facility] Ritt[facility] Medical CenterUrea nitrogen [Mass/Vol]21.0 mg/dL7.0-18.0[facility] Ritt[facility] Medical CenterUrea nitrogen/Creatinine [Mass ratio]27.6 mg/mgSumma Health Wadsworth - Rittman Medical CenterLaboratory - Hematology and Cell countson 05-31-2023 Immature granulocytes/100 WBC (Bld)0.2 %0.0-0.5FKettering Health Hamilton Leukocytes [#/volume] corrected for nucleated erythrocytes in Blood by Automated counon 61-27-6554QVO corrected for nucl RBC Auto (Bld) [#/Vol]5.6 10 3/uL 4.0-11.0[facility] Ritt[facility] Medical CenterLymphocytes Auto (Bld) [#/Vol]on 07-16-4839Qeesvrtwogq (Bld) [#/Vol]1.7 10 3/uL1.2-3.8Sum[facility] Ritt[facility] Medical CenterLymphocytes/100 WBC Auto (Bld)on 06-81-3741Wosbtpmfvyd/100 WBC (Bld)31.0 % 20.5-60.0[facility] HospitalH Auto (RBC) [Entitic mass]on 04-61-0292JDH (RBC) [Entitic mass]28.8 pg26.7-34.0[facility] Ritt[facility] Medical CenterMCHC Auto (RBC) [Mass/Vol]on 77-80-0426UIQI (RBC) [Mass/Vol]32.7 g/dL 29.9-35.2FKettering Health HamiltonMCV Auto (RBC) [Entitic vol]on 21-54-0721VVB (RBC) [Entitic vol]88.0 fL81.0-99.0[facility] Medical CenterMonocytes Auto (Bld) [#/Vol]on 15-77-6193Dcfnhklaq (Bld) [#/Vol]0.8 10 3/uL0.3-0.8[facility] Medical CenterMonocytes/100 WBC Auto (Bld)on 67-47-8482Ldehzxiod/100 WBC (Bld)13.4 %1.7-12.0[facility] Neutrophils Auto (Bld) [#/Vol]on 30-10-0151Gfkaycajxyf (Bld) [#/Vol]2.7 10 3/uL 1.4-6.5FKettering Health HamiltonNeutrophils/100 WBC Auto (Bld)on 94-88-2551Yeygetqwglj/100 WBC (Bld)48.1 %43.0-75.0[facility] Medical CenterNo Panel Informationon 09-02-9935Nhbhdmvzcou # (Auto)0.3 10 3/uL0.0-0.7 [facility] Medical CenterImmature Granulocyte # (Auto)0.01 10 3/uL 0.00-0.03Sum[facility] Ritt[facility] Medical CenterPlatelet mean volume Auto (Bld) [Entitic vol]on 95-89-6838Wummhwek mean volume (Bld) [Entitic vol]10.7 fL 9.5-13.5FKettering Health HamiltonPlatelets Auto (Bld) [#/Vol]on 28-22-0017Dpzylzfpy (Bld) [#/Vol]305 10 3/uQ225-630ZyggrcehcSumma Health Wadsworth - Rittman Medical CenterRBC Auto (Bld) [#/Vol]on 52-82-9273WDJ (Bld) [#/Vol]5.00 10 6/uL4.20-5.40 [facility] Hospital for Rehabilitationerum or plasma albumin/globulin mass ratioon 52-32-0378Eylfrag/Globulin [Mass ratio]0.9 {ratio}[facility] Hospital for Rehabilitationerum or plasma anion gap determinationon 66-27-0639Binfi gap [Moles/Vol] 13.7 mmol/LFBarnesville Hospitalerum or plasma total cholesterol/high density lipoprotein (HDL) cholesterol mass robyn 05-31-2023 Cholesterol.total/Cholesterol in HDL [Mass ratio]4.6 {ratio}[facility]itt[facility] Medical CenterComment on above:3.3 - 4.4 LOW RISK4.4 - 7.1 AVERAGE RISK7.1 - 11.0 MODERATE RISK>11.0 HIGH RISKCT LUNG CANCER SCREENINGon 57-02-9775TC LUNG CANCER SCREENINGEXAMINATION: CT LUNG CANCER SCREENING HISTORY: Nicotine dependence [...] in 12 months. Electronically authenticated by: HAIR MCCOY Date: 2022-06-30 14:[address] [place] [address] STRESS/REST MULTIon 85-25-8009NG STRESS/REST MULTIPatient: PAM SNOW Exam Date: 06/21/2022 : 1960 Gender:F Ordering : DR BRANDT RIVERS M.D. Admission #: [id number] Family : DR SON WALLACE D.O. Order #: [id number] CLICK HERE TO VIEW EXAM RADIOLOGY REPORT [...] was abnormal per attending physician Dr. Kendrick Wallace . For more details please see separate [...] 2. Abnormal exercise test Dictated by: Hair Mccoy MD on 06/25/2022 at 09:32 Approved by: Hair Mccoy MD on 06/25/2022 at 09:33[facility] ECHOCARDIO M/2D COMPLETEon 18-42-7868IBAOKDCTHP M/2D COMPLETEPatient: PAM SNOW Exam Date: 05/31/2022 : 1960 Gender:F Ordering : DR BRANDT RIVERS M.D. Admission #: [id number] Family : Order #: [id number] CLICK HERE TO VIEW EXAM ECHOCARDIOGRAM REPORT [...] 19.60 ml, 19.60 ml Dictated by: Brandt Rivers M.D. on 05/31/2022 at 22:09 Approved by: Brandt Rivers M.D. on 05/31/2022 at 22:12[facility] HospitalPROF CHEM 8 (BAS METB)on 14-29-4188Znlxc gap [Moles/Vol]11.0 mmol/L NormalHenry County HospitalComment on above:Performed By: #### CREA, NA, CA, URIC, BUN, K, CO2, CL #### [facility] [address] [place] [address] Dr. Cesar FrancisCalcium [Mass/Vol]9.4 mg/dLNormal8.5-10.1[facility] Comment on above:Performed By: #### CREA, NA, CA, URIC, BUN, K, CO2, CL #### [facility] [address] [place] [address] Dr. Cesar FrancisChloride [Moles/Vol]101 mmol/QBfcotd59-826ApzHenry County Hospital Comment on above:Performed By: #### CREA, NA, CA, URIC, BUN, K, CO2, CL #### [facility] [address] [place] [address] Dr. Cesar FrancisCO2 [Moles/Vol]28.3 mmol/CUmfmhz24.0-32.0[facility] Comment on above:Performed By: #### CREA, NA, CA, URIC, BUN, K, CO2, CL #### [facility] [address] [place] [address] Dr. Cesar FrancisCreatinine [Mass/Vol]0.72 mg/dLNormal0.55-1.02The [facility]'S HospitalComment on above:Performed By: #### CREA, NA, CA, URIC, BUN, K, CO2, CL #### [facility] [address] [place] [address] Dr. Cesar McgovernGFR-AF BOLIVIAN>60Normal>=60The [facility] Children'S HospitalComment on above:Performed By: #### CREA, NA, CA, URIC, BUN, K, CO2, CL #### [facility] [address] [place] [address] Dr. Cesar McgovernGFR-NON AF BOLIVIAN>60Normal>=60The [facility]'S HospitalComment on above:Performed By: #### CREA, NA, CA, URIC, BUN, K, CO2, CL #### [facility] [address] [place] [address] Dr. Cesar FrancisGlucose [Mass/Vol]92 mg/uIPadgfa02-828GkrHenry County Hospital Comment on above:Performed By: #### CREA, NA, CA, URIC, BUN, K, CO2, CL #### [facility] [address] [place] [address] Dr. Cesar FrancisPotassium [Moles/Vol]3.3 mmol/LCritically low3.5-5.1The [facility]'S HospitalComment on above:Performed By: #### CREA, NA, CA, URIC, BUN, K, CO2, CL #### [facility] [address] [place] [address] Dr. Cesar FrancisSodium [Moles/Vol]137 mmol/MIkrndc942-732Ojs [facility] Comment on above:Performed By: #### CREA, NA, CA, URIC, BUN, K, CO2, CL #### [facility] [address] [place] [address] Dr. Cesar FrancisUrea nitrogen [Mass/Vol]14.0 mg/dLNormal7.0-18.0The [facility] City Hospitalment on above:Performed By: #### CREA, NA, CA, URIC, BUN, K, CO2, CL #### [facility] [address] [place] [address] Dr. Cesar Webster nitrogen/Creatinine [Mass ratio]19.4 mg/mgNormalThe [facility]'S HospitalComment on above:Performed By: #### CREA, NA, CA, URIC, BUN, K, CO2, CL #### [facility] [address] [place] [address] Dr. Cesar FrancisPTH INTACTon 25-44-7480QND, Nqlapj61 pg/cEYymjix30-62Ssp [facility] HospitalComuniversity of mich[facility] health on above:Performed By: #### CREA, NA, CA, URIC, BUN, K, CO2, CL #### [facility] [address] [place] [address] Dr. Cesar Flores 87-99-8866Olrd nitrogen [Mass/Vol]16.0 mg/dLNormal7.0-18.0 The [facility] Hospitalment on above:Performed By: #### CREA, NA, CA, URIC, BUN, K, CO2, CL #### [facility] [address] [place] [address] Dr. Cesar FrancisCALCIUMon 87-37-2846Wfqeegb [Mass/Vol]9.2 mg/dLNormal8.5-10.1The [facility] on above:Performed By: #### CREA, NA, CA, URIC, BUN, K, CO2, CL #### [facility] [address] [place] [address] Dr. Cesar FrancisCHLORIDEon 56-20-1856Adlgmhyy [Moles/Vol]104 mmol/BZzpvut74-904 The [facility]S HospitalComment on above:Performed By: #### CREA, NA, CA, URIC, BUN, K, CO2, CL #### [facility] [address] [address] [address] Cesar FrancisCO2on 09-34-0298MZ6 [Moles/Vol]28.4 mmol/CKprgmh68.0-32.0The [facility]'S HospitalComment on above:Performed By: #### CREA, NA, CA, URIC, BUN, K, CO2, CL #### [facility] [address] [address] [address] Cesar FrancisCREATININEon 60-54-9230Ipyfhnvyln [Mass/Vol]0.63 mg/dLNormal 0.55-1.02The [facility]'S HospitalComment on above:Performed By: #### CREA, NA, CA, URIC, BUN, K, CO2, CL #### [facility] [address] [place] [address] Dr. Guerrero ChangEGFR-AF BOLIVIAN>60Normal>=60The [facility]'S HospitalComment on above:Performed By: #### CREA, NA, CA, URIC, BUN, K, CO2, CL #### [facility] [address] [place] [address] Dr. Cesar McgovernGFR-NON AF BOLIVIAN>60Normal>=60The [facility]'S HospitalComment on above:Performed By: #### CREA, NA, CA, URIC, BUN, K, CO2, CL #### [facility] [address] [place] [address] Dr. Cesar FrancisMG MAMM SCREEN 3D ISAIAH CADon 92-79-8488OI MAMM SCREEN 3D ISAIAH CAD Patient: PAM SNOW Exam Date: 05/18/2022 : 1960 Gender:F Ordering : DR DALE WILSON . Admission #: [id number] Family : RACHELLE WHITFIELD . Order #: [id number] CLICK HERE TO VIEW EXAM RADIOLOGY REPORT [...] lung cancer at age 54. LOCATION: [facility] BREAST COMPOSITION: Almost entirely fatty. FINDINGS: [...] LUMP SHOULD BE BIOPSIED. Dictated by: Hair Mccoy MD on 05/18/2022 at 09:15 Approved by: Hair Mccoy MD on 05/18/2022 at 09:16NoDayton VA Medical CenterNAon 10-55-2430Mwmlhc [Moles/Vol]140 mmol/BOsgpnf430-956Tum [facility] HospitalComment on above:Performed By: #### CREA, NA, CA, URIC, BUN, K, CO2, CL #### [facility] [address] [place] [address] Dr. Cesar FrancisPOTASSIUMon [id number] [Moles/Vol]2.7 mmol/LCritically low3.5-5.1The [facility]S HospitalComment on above:Performed By: #### CREA, NA, CA, URIC, BUN, K, CO2, CL #### [facility] [address] [address] [address] Cesar FrancisURIC ACID SERUMon 55-60-5407Fkpdm [Mass/Vol]6.0 mg/dLNormal 2.6-6.0The [facility]S HospitalComment on above:Performed By: #### CREA, NA, CA, URIC, BUN, K, CO2, CL #### [facility] [address] [address] [address] Cesar FrancisUS KIDNEYSon 13-96-7078UN KIDNEYSEXAMINATION: US KIDNEYS HISTORY: Kidney stone COMPARISON: No relevant comparison [...] Electronically authenticated by: LIZET MALCOLM Date: 2022-05-18 08:47NoDayton VA Medical CenterXR CHEST 2 Von [id number] CHEST 2 VEXAM: XR CHEST 2 V HISTORY: Cough intermittently [...] Electronically authenticated by: CHERRI HAMILTON Date: 2022-04-17 17:56[facility] AUTO DIFFon [id number] #0.1 103/ulNormal0.0-0.1Henry County HospitalComment on above:Performed By: #### CREA, NA, CA, URIC, BUN, K, CO2, CL #### [facility] [address] [place] [address] Dr. Cesar Richsophils/100 WBC (Bld)2.3 %Critically high0.2-2.0The [facility] HospitalComment on above:Performed By: #### CREA, NA, CA, URIC, BUN, K, CO2, CL #### [facility] [address] [place] [address] Dr. Cesar Painter #0.3 103/ulNormal0.0-0.7The [facility] HospitalComment on above: Performed By: #### CREA, NA, CA, URIC, BUN, K, CO2, CL #### [facility] [address] [place] [address] Dr. Cesar Mcgovernosinophils/100 WBC (Bld)4.1 %Normal0.9-7.0[facility] Comment on above:Performed By: #### CREA, NA, CA, URIC, BUN, K, CO2, CL #### [facility] [address] [place] [address] Dr. Cesar Mcgovernrythrocyte distribution width (RBC) [Ratio]12.8 %Hiogmr88.0-15.0 The [facility]S HospitalComment on above:Performed By: #### CREA, NA, CA, URIC, BUN, K, CO2, CL #### [facility] [address] [place] [address] Dr. Cesar FrancisHematocrit (Bld) [Volume fraction]45.4 %Zsirsl90.0-48.0The [facility] HospitalComment on above:Performed By: #### CREA, NA, CA, URIC, BUN, K, CO2, CL #### [facility] [address] [place] [address] Dr. Cesar FrancisHemoglobin (Bld) [Mass/Vol]15.6 g/bWQcibcz83.0-16.0The [facility]S HospitalComment on above:Performed By: #### CREA, NA, CA, URIC, BUN, K, CO2, CL #### [facility] [address] [place] [address] Dr. Cesar Estrada #0.01 10e3/ulNormal0.00-0.03The [facility] Hospitalment on above:Performed By: #### CREA, NA, CA, URIC, BUN, K, CO2, CL #### [facility] [address] [place] [address] Dr. Cesar Estrada %0.2 %Normal0.0-0.5The [facility] HospitalComment on above: Performed By: #### CREA, NA, CA, URIC, BUN, K, CO2, CL #### [facility] [address] [place] [address] Dr. Cesar Bateman #1.6 103/ulNormal1.2-3.8The [facility] HospitalComment on above:Performed By: #### CREA, NA, CA, URIC, BUN, K, CO2, CL #### [facility] [address] [place] [address] Dr. Cesar Canadahocytes/100 WBC (Bld)26.2 %Qzrusz67.5-60.0The [facility]S HospitalComment on above:Performed By: #### CREA, NA, CA, URIC, BUN, K, CO2, CL #### [facility] [address] [place] [address] Dr. Cesar Diaz DIFF REQNONormalThe [facility]'S HospitalComment on above: Performed By: #### CREA, NA, CA, URIC, BUN, K, CO2, CL #### [facility] [address] [place] [address] Dr. Cesar Randhawa (RBC) [Entitic mass]28.6 puBbihhq37.7-34.0The [facility] HospitalComment on above:Performed By: #### CREA, NA, CA, URIC, BUN, K, CO2, CL #### [facility] [address] [place] [address] Dr. Cesar Randhawa (RBC) [Mass/Vol]34.4 g/yJBjupgf79.9-35.2The [facility] HospitalComment on above:Performed By: #### CREA, NA, CA, URIC, BUN, K, CO2, CL #### [facility] [address] [place] [address] Dr. Cesar Randhawa (RBC) [Entitic vol]83.3 sALyvkuf23.0-99.0The [facility] HospitalComuniversity of [facility] health on above:Performed By: #### CREA, NA, CA, URIC, BUN, K, CO2, CL #### [facility] [address] [place] [address] Dr. Cesar Santana #0.8 103/ulNormal0.3-0.8The [facility] HospitalComment on above:Performed By: #### CREA, NA, CA, URIC, BUN, K, CO2, CL #### [facility] [address] [place] [address] Dr. Cesar Dowdocytes/100 WBC (Bld)12.5 %Critically high1.7-12.0The [facility]S HospitalComment on above:Performed By: #### CREA, NA, CA, URIC, BUN, K, CO2, CL #### [facility] [address] [place] [address] Dr. Cesar Heck #3.3 103/ulNormal1.4-6.5The [facility] HospitalComment on above:Performed By: #### CREA, NA, CA, URIC, BUN, K, CO2, CL #### [facility] [address] [place] [address] Dr. Cesar Serranoutrophils/100 WBC (Bld)54.7 %Ihtefv61.0-75.0The [facility] HospitalComment on above:Performed By: #### CREA, NA, CA, URIC, BUN, K, CO2, CL #### [facility] [address] [place] [address] Dr. Cesar FrancisPlatelet mean volume (Bld) [Entitic vol]10.6 fLNormal9.5-13.5The [facility] Hospitalment on above:Performed By: #### CREA, NA, CA, URIC, BUN, K, CO2, CL #### [facility] [address] [place] [address] Dr. Cesar FrancisPLT275 103/puVhpqht394-062Czr [facility] Hospitalment on above: Performed By: #### CREA, NA, CA, URIC, BUN, K, CO2, CL #### [facility] [address] [place] [address] Dr. Cesar FrancisRBC5.45 106/ulCritically high4.20-5.40[facility] Comment on above:Performed By: #### CREA, NA, CA, URIC, BUN, K, CO2, CL #### [facility] [address] [place] [address] Dr. Cesar FrancisWBC6.1 103/ulNormal4.0-11.0The [facility] on above: Performed By: #### CREA, NA, CA, URIC, BUN, K, CO2, CL #### [facility] [address] [place] [address] Dr. Cesar FrancisLIPID PROFILEon 83-32-6104OHDX-HDL RATIO NORMSEE [facility] on above:Result Comment: 3.3 - 4.4 LOW RISK 4.4 - 7.1 AVERAGE RISK 7.1 - 11.0 MODERATE RISK >11.0 HIGH RISKPerformed By: #### CREA, NA, CA, URIC, BUN, K, CO2, CL #### [facility] [address] [place] [address] Dr. Cesar FrancisCholesterol [Mass/Vol]241 mg/dLCritically high<=200The [facility] on above:Performed By: #### CREA, NA, CA, URIC, BUN, K, CO2, CL #### [facility] [address] [place] [address] Dr. Cesar Molinaesterol in HDL [Mass/Vol]66 mg/dLCritically xvsh06-40PjmKettering Health Springfield on above:Performed By: #### CREA, NA, CA, URIC, BUN, K, CO2, CL #### [facility] [address] [place] [address] Dr. Cesar Molinaesterol in LDL [Mass/Vol]156.0 mg/dLMemorial Health System on above:Performed By: #### CREA, NA, CA, URIC, BUN, K, CO2, CL #### [facility] [address] [place] [address] Dr. Cesar Serrano.total/Cholesterol in HDL [Mass ratio]3.7 {ratio} NormalThe [facility] on above:Performed By: #### CREA, NA, CA, URIC, BUN, K, CO2, CL #### [facility] [address] [place] [address] Dr. Cesar AlvesL NORMAL> or = 60 mg/dl - LOW CARDIOVASCULAR RISK <40 mg/dl - HIGH CARDIOVASCULAR RISKMcKitrick HospitalComment on above:Performed By: #### CREA, NA, CA, URIC, BUN, K, CO2, CL #### [facility] [address] [address] [address] Cesar FrancisLDL CALC NORMALSEE BELOWMcKitrick HospitalComment on above:Result Comment: <100 mg/dl OPTIMAL 100 - 129 mg/dl NEAR OR ABOVE OPTIMAL 130 - 159 mg/dl BORDERLINE HIGH 160 - 189 mg/dl HIGH >190 mg/dl VERY HIGH Performed By: #### CREA, NA, CA, URIC, BUN, K, CO2, CL #### [facility] [address] [place] [address] Dr. Cesar FrancisTriglyceride [Mass/Vol]95 mg/dLNormal<=150The [facility] Comment on above:Performed By: #### CREA, NA, CA, URIC, BUN, K, CO2, CL #### [facility] [address] [address] [address] Cesar FrancisVLDL CALC19.0 mg/dLNoDayton VA Medical CenterComment on above: Performed By: #### CREA, NA, CA, URIC, BUN, K, CO2, CL #### [facility] [address] [place] [address] Dr. Cesar FrancisPROF 14(COMP METB)on 43-80-2649Lisppcx [Mass/Vol]3.6 g/dLNormal 3.4-5.0The [facility] HospitalComment on above:Performed By: #### CREA, NA, CA, URIC, BUN, K, CO2, CL #### [facility] [address] [place] [address] Dr. Cesar FrancisAlbumin/Globulin [Mass ratio]1.0 {ratio}NormalThe [facility]S HospitalComment on above:Performed By: #### CREA, NA, CA, URIC, BUN, K, CO2, CL #### [facility] [address] [place] [address] Dr. Cesar Rock [Catalytic activity/Vol]65 U/HIugbjv99-847Cjl [facility] Hospitalment on above:Performed By: #### CREA, NA, CA, URIC, BUN, K, CO2, CL #### [facility] [address] [place] [address] Dr. Cesar Maddox [Catalytic activity/Vol]31 U/QTiersc97-04Egc [facility] HospitalComment on above:Performed By: #### CREA, NA, CA, URIC, BUN, K, CO2, CL #### [facility] [address] [place] [address] Dr. Cesar Frederick gap [Moles/Vol]13.2 mmol/LNormalHenry County Hospital Comment on above:Performed By: #### CREA, NA, CA, URIC, BUN, K, CO2, CL #### [facility] [address] [place] [address] Dr. Cesar Calixto [Catalytic activity/Vol]21 U/IBikhmr58-47Vuv [facility] HospitalComment on above:Performed By: #### CREA, NA, CA, URIC, BUN, K, CO2, CL #### [facility] [address] [place] [address] Dr. Cesar FrancisBilirubin [Mass/Vol]0.5 mg/dLNormal0.2-1.0[facility] Comment on above:Performed By: #### CREA, NA, CA, URIC, BUN, K, CO2, CL #### [facility] [address] [place] [address] Dr. Cesar FrancisCalcium [Mass/Vol]9.0 mg/dLNormal8.5-10.1[facility] Comment on above:Performed By: #### CREA, NA, CA, URIC, BUN, K, CO2, CL #### [facility] [address] [place] [address] Dr. Cesar FrancisChloride [Moles/Vol]101 mmol/NZtigyp65-553EdqHenry County Hospital Comment on above:Performed By: #### CREA, NA, CA, URIC, BUN, K, CO2, CL #### [facility] [address] [place] [address] Dr. Cesar FrancisCO2 [Moles/Vol]29.5 mmol/WIobcbu20.0-32.0[facility] Comment on above:Performed By: #### CREA, NA, CA, URIC, BUN, K, CO2, CL #### [facility] [address] [place] [address] Dr. Cesar FrancisCreatinine [Mass/Vol]0.71 mg/dLNormal0.55-1.02[facility] HospitalComment on above:Performed By: #### CREA, NA, CA, URIC, BUN, K, CO2, CL #### [facility] [address] [place] [address] Dr. Cesar McgovernGFR-AF BOLIVIAN>60Normal>=60The [facility] HospitalComment on above:Performed By: #### CREA, NA, CA, URIC, BUN, K, CO2, CL #### [facility] [address] [place] [address] Dr. Cesar McgovernGFR-NON AF BOLIVIAN>60Normal>=60The [facility] HospitalComment on above:Performed By: #### CREA, NA, CA, URIC, BUN, K, CO2, CL #### [facility] [address] [place] [address] Dr. Cesar FrancisGlobulin (S) [Mass/Vol]3.5 g/dLNormalThe [facility]S HospitalComment on above:Performed By: #### CREA, NA, CA, URIC, BUN, K, CO2, CL #### [facility] [address] [place] [address] Dr. Cesar FrancisGlucose [Mass/Vol]102 mg/wZNvsrse66-499Lac [facility] Comment on above:Performed By: #### CREA, NA, CA, URIC, BUN, K, CO2, CL #### [facility] [address] [place] [address] Dr. Cesar FrancisPotassium [Moles/Vol]3.7 mmol/LNormal3.5-5.1The [facility] Comment on above:Performed By: #### CREA, NA, CA, URIC, BUN, K, CO2, CL #### [facility] [address] [place] [address] Dr. Cesar FrancisProtein [Mass/Vol]7.1 g/dLNormal6.4-8.2The [facility] Comment on above:Performed By: #### CREA, NA, CA, URIC, BUN, K, CO2, CL #### [facility] [address] [place] [address] Dr. Cesar FrancisSodium [Moles/Vol]140 mmol/ZKzcjza841-071Rwk [facility] Comment on above:Performed By: #### CREA, NA, CA, URIC, BUN, K, CO2, CL #### [facility] [address] [place] [address] Dr. Cesar FrancisUrea nitrogen [Mass/Vol]28.0 mg/dLCritically high7.0-18.0The [facility] HospitalComment on above:Performed By: #### CREA, NA, CA, URIC, BUN, K, CO2, CL #### [facility] [address] [place] [address] Dr. Cesar FrancisUrea nitrogen/Creatinine [Mass ratio]39.4 mg/mgNormalThe [facility]S HospitalComment on above:Performed By: #### CREA, NA, CA, URIC, BUN, K, CO2, CL #### [facility] [address] [place] [address] Dr. Cesar Edmondson INTACTon 94-56-3463UXT, Inpfdr65 pg/mLCritically jkq14-85Wdc [facility] HospitalComment on above:Performed By: #### CREA, NA, CA, URIC, BUN, K, CO2, CL #### [facility] [address] [place] [address] Dr. Cesar Flores 12-11-1722Euqu nitrogen [Mass/Vol]11.0 mg/dLNormal7.0-18.0 The [facility] HospitalComment on above:Performed By: #### CREA, NA, CA, URIC, BUN, K, CO2, CL #### [facility] [address] [place] [address] Dr. Cesar FrancisCALCIUMon 69-59-9754Rjsuqnf [Mass/Vol]9.2 mg/dLNormal8.5-10.1The [facility] HospitalComment on above:Performed By: #### CREA, NA, CA, URIC, BUN, K, CO2, CL #### [facility] [address] [place] [address] Dr. Cesar FrancisCHLORIDEon 69-91-3335Aahmcagy [Moles/Vol]104 mmol/QBikxpo06-763 [facility] on above:Performed By: #### CREA, NA, CA, URIC, BUN, K, CO2, CL #### [facility] [address] [place] [address] Dr. Cesar FrancisCO2on 91-59-6265PM6 [Moles/Vol]28.5 mmol/SOdvohm49.0-32.0The [facility] on above:Performed By: #### CREA, NA, CA, URIC, BUN, K, CO2, CL #### [facility] [address] [place] [address] Dr. Cesar FrancisCREATININEon 59-78-6320Itifcxotwl [Mass/Vol]0.83 mg/dLNormal 0.55-1.02[facility] on above:Performed By: #### CREA, NA, CA, URIC, BUN, K, CO2, CL #### [facility] [address] [place] [address] Dr. Guerrero ChangEGFR-AF BOLIVIAN>60Normal>=60The [facility] on above:Performed By: #### CREA, NA, CA, URIC, BUN, K, CO2, CL #### [facility] [address] [place] [address] Dr. Cesar McgovernGFR-NON AF BOLIVIAN>60Normal>=60The [facility] HospitalComment on above:Performed By: #### CREA, NA, CA, URIC, BUN, K, CO2, CL #### [facility] [address] [address] [address] Cesar Tamez 73-50-7215Rprurh [Moles/Vol]143 mmol/OMzpzks571-279Gcd [facility] HospitalComment on above:Performed By: #### CREA, NA, CA, URIC, BUN, K, CO2, CL #### [facility] [address] [address] [address] Cesar FrancisPHOSPHORUSon 00-05-4439Wzdylwpzv [Mass/Vol]2.7 mg/dLNormal2.6-4.7 The [facility]S HospitalComment on above:Performed By: #### CREA, NA, CA, URIC, BUN, K, CO2, CL #### [facility] [address] [address] [address] Cesar FrancisURIC ACID SERUMon 52-18-7439Nmomm [Mass/Vol]5.8 mg/dLNormal 2.6-6.0The [facility] HospitalComment on above:Performed By: #### CREA, NA, CA, URIC, BUN, K, CO2, CL #### [facility] [address] [address] [address] Cesar FrancisPROTIMEguanakito 18-98-4930ZAD Coag RelTime (PPP)1.04 {INR}Normal 0.00-1.20St. [facility] Medical CenterComment on above:Order Comment: CONSERVATIONList patient's anticoagulants for PT: NONE SPECIFIEDResult Comment: Recommended therapeutic range is an INR of 2.0-3.0 exceptfor prevention of recurrent acute SD and mechanicalprosthetic heart valve where an INR of 2.5-3.5 isrecommended.Performed By: #### L300.81109 ####Test performed at: [address] [address]LW SEC11.0 secondsNormal9.7-11.5St. [facility] Medical CenterComment on above:Order Comment: CONSERVATIONList patient's anticoagulants for PT: NONE SPECIFIED Performed By: #### L300.86771 ####Test performed at: [address] [address]ZWIZSMC CATHETERIZATIONon 27-26-0475CVMCRLS CATHETERIZATIONPATIENT NAME: ANNELISE SNOW#: [id number]: ANNELISE SNOW#: [id number] OF PROCEDURE: 05/03/2017CARDIAC CATHHISTORY OF PRESENT ILLNESS: Mrs. Snow is a 57-year-old lady well known tome. Shehas documented coronary artery disease with previous left anteriordescending stent. She also has significant hyperlipidemia and is intolerantof statins. She presents with a history of increasing fatigue and weakness.It was felt that this was probably an anginal equivalent and cardiaccatheterizationwas recommended.PROCEDURE: The right groin was prepped and draped in the usual manner. A 2%lidocaine was used as local anesthesia. The right femoral artery was accessedwith a multipurpose needle and a 6-Mozambican sheath inserted. Selective coronaryarteriography was performed using 6-Mozambican JL4 and 6-Mozambican JR4 catheters.Left ventriculography was performed using a 6-Mozambican angled pigtail catheter.At the end of the [...] groove. The rest of the vessel doesSt. Eden Medical Center PATIENT NAME:BEKA SNOW [facility] MEDICAL REC: [id number] [facility] ACCOUNT NUM:[id number]/BED: PaoFormerly [facility] : [place] [address] ATTENDING PHY: Candice Torres MDCARDIAC CATHETERIZATIONPATIENT NAME: ELDON SNOWR#: [id number] contain anysignificant disease.LEFT VENTRICULOGRAM: The left ventricular injection reveals a normal size leftventricle with normal contractility and normal ejection fraction. There is noangiographic mitral regur gitation.FINAL DIAGNOSIS:1. CAD-luminal irregularities, left main trunk-patent stent in proximal LAD-60-70% mid point. Posterior descending mbhogozvpl-20-56% mid rightcoronary artery.RECOMMENDATION: The circumflex stent will [...] be removed at anappropriate time on the floor.___ MICHAEL MOREIRA/SEAN/[id number]: 05/03/2017 13:24:11T: 05/03/2017E/S: Candice Torres MD05/07/17 0850Signature on FileSt. Eden Medical Center PATIENT NAME: BEKA SNOW [facility] MEDICAL REC: [id number] s [facility] ACCOUNT NUM: [id number]/BED: PaoFormerly [facility] : [place] [address] ATTENDING PHY: Candice Torres [facility] CITY[place] CATHETERIZATIONNormalSt. [facility] W/DIFFon 46-14-4248EACG ABS0.1 K/uLNormal0.0-0.2St. [facility] Medical CenterComuniversity of [facility] health on above:Order Comment: CONSERVATION Performed By: #### L200.23669 ####Test performed at: [address] [address]Nxtrrreim/100 WBC Auto (Bld)1.8 %NormalSt. Eden Medical CenterComment on above:Order Comment: CONSERVATIONPerformed By: #### L200.92326 ####Test performed at: [address] [address]XKE ABS0.2 K/uL Normal0.0-0.5StNatividad Medical CenterComuniversity of mich[facility] health on above:Order Comment: CONSERVATIONPerformed By: #### L200.52147 ####Test performed at: [address] [address]Ybbygtlubzd/100 leukocytes2.6 %NormalSt. Eden Medical CenterComuniversity of mich[facility] health on above:Order Comment: CONSERVATIONPerformed By: #### L200.31854 ####Test performed at: [address] [address] Erythrocyte distribution width Auto Ratio (RBC)13.7 %Itinoa79.5-14.5St. Eden Medical CenterComuniversity of [facility] health on above:Order Comment: CONSERVATIONPerformed By: #### L200.37855 ####Test performed at: [address] [address]Ktuimrmkehuf (RBC)5.06 10*6/uLNormal3.5-5.5 [facility] RosaComun[facility] of [facility] health on above:Order Comment: CONSERVATION Performed By: #### L200.87743 ####Test performed at: [address] [address]Vmupwmnyftdw (RBC)0.000 10*6/uL Normal0-0.012St. [facility] Medical CenterComment on above:Order Comment: CONSERVATIONPerformed By: #### L200.04995 ####Test performed at: [address] [address]Zjsvdhfvhv (HCT) 42.6 %Miawwa85.0-48.0St. [facility] Medical CenterComment on above:Order Comment: CONSERVATIONPerformed By: #### L200.79246 ####Test performed at: [address] [address] Hemoglobin mass conc (Bld)14.1 g/bOMenjxs13.0-15.0St. [facility] Medical CenterComment on above:Order Comment: CONSERVATIONPerformed By: #### L200.65497 ####Test performed at: [address] [address]JR %0.3 %NormalSt. Eden Medical CenterComment on above:Order Comment: CONSERVATIONPerformed By: #### L200.00637 ####Test performed at: [address] [address]BU ABS0.02 K/uLNormal0-0.05St. [facility] Medical CenterComment on above:Order Comment: CONSERVATIONPerformed By: #### L200.83758 ####Test performed at: [address] [address]Nuxxfewgcjt7.5 10*3/uLNormal1.2-3.5[facility] Comment on above:Order Comment: CONSERVATIONPerformed By: #### L200.10067 ####Test performed at: [address] [address]Rfsxpkumyon/100 ksiumzgeeb14.2 %NormalSt. Eden Medical CenterComment on above:Order Comment: CONSERVATIONPerformed By: #### L200.32611 ####Test performed at: [address] [address]SXV13.9 uuUekhxg78.4-34.6St. [facility] Medical CenterComment on above:Order Comment: CONSERVATIONPerformed By: #### L200.84847 ####Test performed at: [address] [address]VFWH mass conc (RBC)33.1 g/hZSdfseb24.5-36.5St. [facility] Medical CenterComment on above:Order Comment: CONSERVATION Performed By: #### L200.68156 ####Test performed at: [address] [address]NYF61.[address] vQPywqkg79.0-98.0St. [facility] Medical CenterComment on above:Order Comment: CONSERVATION Performed By: #### L200.56700 ####Test performed at: [address] [address]XVNA ABS0.7 K/uLNormal0.0-1.0St. [facility] Medical CenterComment on above:Order Comment: CONSERVATION Performed By: #### L200.76813 ####Test performed at: [address] [address]Uyntljhgt/100 leukocytes9.4 % Normal. [facility] Medical CenterComment on above:Order Comment: CONSERVATIONPerformed By: #### L200.22842 ####Test performed at: [address] [address]Wrnupwxeyyd5.8 10*3/uLNormal1.4-6.6St. [facility] Medical CenterComment on above:Order Comment: CONSERVATIONPerformed By: #### L200.93575 ####Test performed at: [address] [address] Neutrophils/100 WBC Auto (Bld)65.7 %Normal. [facility] Comment on above:Order Comment: CONSERVATIONPerformed By: #### L200.02756 ####Test performed at: [place] [address] [address]GMYO %0.0 /100 WBCNormal0-[address].2St. [facility] Medical CenterComment on above:Order Comment: CONSERVATIONPerformed By: #### L200.22907 ####Test performed at: [address] [address]Atdeasdi mean volume (PMV)11.9 fLNormal8.7-12.4St. [facility] CenterComment on above:Order Comment: CONSERVATIONPerformed By: #### L200.34267 ####Test performed at: [address] [address]Ljhzpmlza515 10*3/nOOycucb360-086Lm. [facility] CenterComment on above:Order Comment: CONSERVATIONPerformed By: #### L200.63053 ####Test performed at: [address] [address]STQ (Leukocytes)7.2 10*3/uLNormal3.9-11.0St. [facility] CenterComment on above:Order Comment: CONSERVATION Performed By: #### L200.49492 ####Test performed at: [address] [address]GDKO META PANELon 05-03-2017 Alanine aminotransferase (ALT)17 U/TDniqal19-20Js. [facility] CenterComment on above:Order Comment: CONSERVATIONIs patient fasting? UNKNOWN Performed By: #### L500.66382, L500.46062, L500.74954, L500.19106 ####Test performed at: [address] [address]Phvtzjs3.4 g/dLNormal3.4-5.0St. [facility] CenterComment on above:Order Comment: CONSERVATIONIs patient fasting? UNKNOWNPerformed By: #### L500.29252, L500.25725, L500.53628, L500.53930 ####Test performed at: [address] [address]KBZ PHOS TOTAL96 U/IWnzsoh79-789Hx. [facility] CenterComment on above:Order Comment: CONSERVATIONIs patient fasting? UNKNOWNPerformed By: #### L500.69053, L500.18779, L500.18155, L500.52324 ####Test performed at: [address] [address]Xjewlqhrh aminotransferase (AST)15 U/WXmicpi75-91Tx. [facility] CenterComment on above:Order Comment: CONSERVATIONIs patient fasting? UNKNOWNPerformed By: #### L500.20741, L500.44538, L500.74980, L500.82716 ####Test performed at: [address] [address]LUCU TOTAL0.7 mg/dLNormal0.2-1.0St. [facility] CenterComment on above: Order Comment: CONSERVATIONIs patient fasting? UNKNOWNPerformed By: #### L500.25718, L500.40677, L500.34282, L500.15089 ####Test performed at: [address] [address]Bchbeqe 8.3 mg/dLLow8.5-10.1St. [facility] CenterComment on above:Order Comment: CONSERVATIONIs patient fasting? UNKNOWNPerformed By: #### L500.59502, L500.15180, L500.41911, L500.95279 ####Test performed at: [address] [address]Nqezizpi729 mmol/LHigh 98-107St. [facility] CenterComment on above:Order Comment: CONSERVATIONIs patient fasting? UNKNOWNPerformed By: #### L500.68924, L500.30934, L500.39505, L500.85855 ####Test performed at: [place] [address]QO494 mmol/SXwdyxo07-77 [facility] RosaComment on above:Order Comment: CONSERVATIONIs patient fasting? UNKNOWNPerformed By: #### L500.79406, L500.53442, L500.97838, L500.58973 ####Test performed at: [address] [address]Mdkgysatwc8.648 mg/dLNormal0.550-1.020St. [facility] CenterComment on above:Order Comment: CONSERVATIONIs patient fasting? UNKNOWNPerformed By: #### L500.33984, L500.91299, L500.66034, L500.12761 ####Test performed at: [address] [address]Jxqxmzw mass conc94 mg/cYIxqtbm67-264Xy. [facility] CenterComment on above:Order Comment: CONSERVATIONIs patient fasting? UNKNOWNPerformed By: #### L500.82205, L500.14445, L500.82434, L500.21464 ####Test performed at: [address] [address]Yimwrohuj molar conc4.2 mmol/LNormal3.5-5.1St. [facility] CenterComment on above:Order Comment: CONSERVATIONIs patient fasting? UNKNOWNPerformed By: #### L500.79366, L500.97939, L500.32783, L500.19850 ####Test performed at: [address] [address]Pzkuusy5.4 g/dLNormal6.4-8.2St. [facility] CenterComment on above:Order Comment: CONSERVATIONIs patient fasting? UNKNOWNPerformed By: #### L500.50561, L500.07239, L500.29527, L500.78850 ####Test performed at: [address] [address]Tybkfu669 mmol/CVhetqk226-036Oc. [facility] CenterComment on above:Order Comment: CONSERVATIONIs patient fasting? UNKNOWN Performed By: #### L500.54196, L500.37469, L500.93108, L500.05316 ####Test performed at: [place] [address]Urea hbrcduel02 mg/dLNormal7-18[facility] Comment on above:Order Comment: CONSERVATIONIs patient fasting? UNKNOWNPerformed By: #### L500.09055, L500.39215, L500.49697, L500.14815 ####Test performed at: [place] [address] Cardiology Progress Noteon 53-10-8913Qcivgxvtzn Progress NoteST. [facility] Pt Name: QUE SNOWA[address] MR#: [id number], [place] [address] ACCT: [id number] NOTE - Cardiology : 59Service Date: 05/04/17 1131NAME: ANNELISE SNOW#: [id number] OF SERVICE: 05/04/2017CARDIOLOGY PROGRESS NOTESUBJECTIVE: Mrs. Snow has no complaints this morning.OBJECTIVE: VITAL SIGNS: Blood pressure 123/77, heart rate inthe 70s.Head: Pupils are equal and reactive. Extraocular [...] DATA: There are no new labs.IMPRESSION:1. CAD.2. Hyperlipidemia.RECOMMENDATIONS: He can be discharged today. Will follow up with me with jason 1 month. CANDICE TORRES, MDRJS/MODL/[id number]: 05/04/2017 11:31:37 eSign Date and TimeSteeleRobertJ. KELLY Signature on File 05/04/17 1156NormalS. Eden Medical CenterEKGon 26-49-2797GITLqopplox on 05/03/2017 0[address]Vent. Rate : 055 BPM Atrial Rate : 055 BPMP-R Int : 188 ms QRS Dur : 080msQT Int : 396 ms P-R-T Axes : 058 062 055 degreesQTc Int : 378 msSinus bradycardiaOtherwise normalECGNo previous ECGs availableConfirmed by CANDICE TORRES MD ([id number]) on 05/04/2017 11:16:47 AMReferred By: Confirmed By:CANDICE TORRES [id number] 2017 [facility] PT NAME: ANNELISE SNOW#: [id number] [place] [address] ACCT: [id number]: 59EKG REPORTNormCibola General Hospital. [facility] CenterEST. CREAT CLRon 36-46-8568Lryebllezz432.424 ML/MINNoUNM [facility]'s Hospital. [facility] CenterComment on above:Order Comment: CONSERVATIONIs patient fasting? UNKNOWN Result Comment: This result is an ESTIMATED blood creatinine clearance valuewhich is derived from the patient age, sex, weight, andprevious blood creatinine result.Performed By: #### L500.76398, L500.58750, L500.00804, L500.20458 ####Test performed at: [address], [place] [address]HCY ESTIMATEon 85-87-9203LG AMER> 60Normal > 60St. [facility] Medical CenterComment on above:Order Comment: CONSERVATIONIs patient fasting? UNKNOWNResult Comment: eGFR (Estimated GFR) Units of measure:mL/min/1.73 meters sq.*CALCULATION REVISED 12/28/2014;IDMS- traceable MDRD equationeGFR is derived from the reexpressed MDRD Study equationusing the following parameters: serum creatinine, age,gender and race. An eGFR<60 mL/min/1.73m2 for >3 monthsis consistent with chronic kidney disease. [facility] for clinical interpretation.Performed By: #### L500.06966, L500.31420, L500.35455, L500.13458 ####Test performed at: [address] [address]MM non- AFR AMER> 60Normal> 60St. [facility] Medical CenterComment on above:Order Comment: CONSERVATIONIs patient fasting? UNKNOWNPerformed By: #### L500.48846, L500.02650, L500.85676, L500.11936 ####Test performed at: [address] [address]NFBIK PROFILEon 43-73-9915Nkkmevqtamn267 mg/dLHigh<200St. [facility] Medical CenterComment on above:Order Comment: CONSERVATIONIs patient fasting? UNKNOWNResult Comment: <200 mg/dL (Desirable) 200-240 mg/dL (Borderline) >240 mg/dL (High Risk) Performed By: #### L500.47058, L500.77983, L500.10436, L500.30398 ####Test performed at: [address] [address]YPF Fsoexywbwgg75 mg/gZJmreln05-09Uk. [facility] Comment on above:Order Comment: CONSERVATIONIs patient fasting? UNKNOWNPerformed By: #### L500.07780, L500.79675, L500.75484, L500.41204 ####Test performed at: [address] [address]ARH Hbppbgikrgs338 mg/nPKtdf97-533Mg. [facility] Medical CenterComment on above:Order Comment: CONSERVATIONIs patient fasting? UNKNOWNPerformed By: #### L500.24912, L500.16431, L500.11864, L500.33874 ####Test performed at: [address] [address] Lmfwxcbfypzr96 mg/dLNormal<150St. [facility] Medical CenterComment on above:Order Comment: CONSERVATIONIs patient fasting? UNKNOWNResult Comment: <150 mg/dL (Normal) 150-199 mg/dL (Borderline) 200-499 mg/dL (High) >500 mg/dL (Very High)Performed By: #### L500.25537, L500.39890, L500.51325, L500.05541 ####Test performed at: [address] [address]DJFNAYPjv 52-91-0506OGI Coag RelTime (PPP)1.06 {INR}Normal0.00-1.20St. [facility] Medical CenterComment on above:Order Comment: CONSERVATIONList patient's anticoagulants for PT: HEPARINResult Comment: Recommended therapeutic range is an INR of 2.0-3.0 exceptfor prevention of recurrent acute SD and mechanicalprosthetic heart valve where an INR of 2.5-3.5 isrecommended.Performed By: #### L300.24674 ####Test performed at: [address] [address]SQ SEC11.2 secondsNormal9.7-11.5St. [facility] Medical CenterComment on above:Order Comment: CONSERVATIONList patient's anticoagulants for PT: HEPARINPerformed By: #### L300.41085 ####Test performed at: [address] [address] Vital Signs Date TimeVital SignValuePerforming AtzegyjmsRqgdvnxf23-10-4059 09:28-0400Body bueyiz671.1 cmBenjamin Ball DO Work Phone: [phone] [place], [place] 3506810-13-2025 09:28-0400 Body mass index (BMI) [Ratio]26.4 kg/f6Kkzvyruc Ball DO Work Phone: [phone])[address] [place], [place] 3506810-13-2025 09:28-0400 Body ighmpw32.12 kgBenjamin Ball DO Work Phone: 1(419)[address] [place], [place] 3506810-13-2025 09:28-0400 Diastolic blood ukdonpea03 mm[Hg]Son Ball DO Work Phone: 1(419)[address] [place], [place] 3506810-13-2025 09:28-0400 Heart rate56 /minBenjamin Ball DO Work Phone: 1(419)[address] [place], [place] 3506810-13-2025 09:28-0400 Respiratory rate12 /minBenjamin Ball DO Work Phone: 1(419)[address] [place], [place] 3506810-13-2025 09:28-0400 Systolic blood upzubelt684 mm[Hg]Son Ball DO Work Phone: 1(419)[address] [place], [place] 3506804-04-2025 09:55-0400 Diastolic blood eqtcsmoa82 mm[Hg]Son Ball DO Work Phone: 1(419)[address] [place], [place] 3506804-04-2025 09:55-0400 Heart rate66 /minBenjamin Ball DO Work Phone: 1(419)[address] [place], [place] 3506804-04-2025 09:55-0400 Respiratory rate16 /minBenjamin Ball DO Work Phone: [phone] [place], [place] 3506804-04-2025 09:55-0400 SaO2% (BldA) [Mass fraction]95 %Son Ball DO Work Phone: [phone])[address] [place], [place] 3506804-04-2025 09:55-0400 Systolic blood vcezfwqd293 mm[Hg]Son Ball DO Work Phone: 1(419)[address] [place], [place] 3506804-04-2025 07:53-0400 Body smeosk247.1 cmBenjamin Ball DO Work Phone: [facility]04-04-2025 07:53-0400 Body brzwuz54.3 kgBenjamin Ball DO Work Phone: [facility]04-03-2025 08:37-0400 Body zjarpz800.1 cmSumma [facility]04-03-2025 08:37-0400Body mass index (BMI) [Ratio]28.3 kg/v6YgwiaoorfSumma Health Wadsworth - [facility] Center04-03-2025 08:37-0400Body fxfpao23.22 kgSumma Health W[facility] - [facility]04-03-2025 08:37-0400Diastolic blood hejndfka35 mm[Hg][facility] 06-11-2024 08:37-0400Heart rate61 /[facility] 06-11-2024 08:37-0400Respiratory rate12 /[facility] 06-11-2024 08:37-0400Systolic blood ruucakip980 mm[Hg][facility]10-11-2024 09:47-0400Body rwmywn727.1 cmSum[facility] 12-20-2023 09:47-0400Body mass index (BMI) [Ratio]27.7 kg/v5RijswuwijSumma Health Wadsworth - [facility]ittman [facility] Center10-11-2024 09:47-0400Body ohapqg43.52 kgSumma Health [facility]10-11-2024 09:47-0400Diastolic blood mm[Hg][facility]10-11-2024 09:47-0400Heart rate68 /[facility]10-11-2024 09:47-0400Respiratory rate12 /[facility]10-11-2024 09:47-0400Systolic blood awlanehu625 mm[Hg][facility]06-06-2024 09:13-0400Body alvupe327.1 cmSumma Health [facility]06-06-2024 09:13-0400Body mass index (BMI) [Ratio]26.6 kg/t5NyjlozmeuSumma Health Wadsworth - [facility]itt[facility] Center06-06-2024 09:13-0400Body xciyps62.74 kgSumma Health W[facility] - [facility]06-06-2024 09:13-0400Diastolic blood dahrgggh31 mm[Hg] [facility]06-06-2024 09:13-0400Heart rate60 /[facility]06-06-2024 09:13-0400Respiratory rate12 /[facility]06-06-2024 09:13-0400Systolic blood gudfblxr744 mm[Hg] [facility]03-27-2024 08:38-0400Body btqeyl812.1 cm [facility]03-27-2024 08:38-0400Body mass index (BMI) [Ratio]26.8 kg/q7XkkrkfvlzSumma Health [facility] - [facility] Center03-27-2024 08:38-0400Body epvozt35.02 kgSumma Health W[facility] - [facility]itt[facility]03-27-2024 08:38-0400Diastolic blood mm[Hg][facility]03-27-2024 08:38-0400 Heart rate73 /[facility]03-27-2024 08:38-0400 Respiratory rate12 /[facility]03-27-2024 08:38-0400 Systolic blood omskwigp497 mm[Hg][facility]04-11-2022 14:55-0400Blood Pressure LocationKathy Lue [facility] 04-11-2022 14:55-0400Diastolic blood mm[Hg] Rachelle Lue [facility] 04-11-2022 14:55-0400Heart rate78 /minKathy Lue [facility] 04-11-2022 14:55-0400Respiratory rate16 /minRachelle Whitfield [facility] 04-11-2022 14:55-0400Systolic blood hxdwbabo305 mm[Hg] Rachelle Whitfield [facility] Encounters Encounter DateEncounter TypeCare ProviderFacilityStart: 12-24-2024 End: 84-09-6979qghjcznbdxBxpsj M. LueFacility:FTMCStart: 12-24-2024 End: 58-75-0571ruapjhopyeRztfx M. LueFacility:EU NorwalkStart: 12-24-2024 End: 87-37-0968Qwjifam encounter procedureRachelle Whitfield [facility] Start: 12-21-2024 End: 52-26-3667xbidmcunnxFexpyvsv Ball DO Work Phone: [facility] Work Phone: Start: 12-21-2024 End: 73-94-6138Ydbofud encounter procedureBenjamin Ball DO-[facility] Work Phone: Start: 23-81-8306Afj-patient / Non-visitBenjamin Ball DO Work Phone: [facility] Work Phone: Start: 06-12-2024 End: 52-46-3909Kehjbgpro to same day surgery centerBenjamin Ball DO Work Phone: [facility] Work Phone: Start: 06-12-2024 End: 39-16-4629mxijvhtrhhXiwszfjg Ball DO Work Phone: [facility] Work Phone: Start: 06-11-2024 End: 09-24-9982xqazrnbrvsRauouolugOhioHealth O'Bleness Hospital Work Phone: Start: 06-11-2024 End: 98-63-1245Evlcpodjx for general adult medical examination without abnormal findingsChildren's Hospital for Rehabilitationtart: 06-11-2024 End: 17-14-5896Zchmhpx encounter procedureW[facility] Work Phone: Start: 01-29-2024 End: 60-30-2279evtxgujsbqLRIOQHUniversity Hospitals [facility] Start: 12-20-2023 End: 47-90-4042yfnzdxpnpwKmierddxzDayton [facility] Medical Center Work Phone: Start: 12-20-2023 End: 79-27-8492Zqgxboi encounter procedureW[facility]emed [facility] Work Phone: Start: 21-80-5844Jdb-patient / Non-visitW[facility]emed [facility] Work Phone: Start: 10-14-2023 End: 35-63-1601dhiuukzszyVGCAXRW L DAUCH-REDDINGNot AvailableStart: 09-30-2023 End: 90-52-7737hiirdeebucTRLTZ B APLINGNot AvailableStart: 09-09-2023 End: 36-62-6137pacrbwrqqxVXCWO FAZIONot AvailableStart: 09-04-2023 End: 30-61-2941advdsgqqgqKNZGY B APLINGNot AvailableStart: 08-28-2023 End: 27-51-7754Sahfmrqabg and management of inpatientANGELA A [facility] Centertart: 08-28-2023 End: 72-90-1778Tayodyonph and management of inpatientJAMES A [facility]tart: 08-15-2023 End: 48-64-6873azhssrfczxUjmuuohznOhioHealth O'Bleness Hospital Work Phone: Start: 08-15-2023 End: 32-65-4578Ardccvs encounter procedureW[facility]emed [facility] Work Phone: Start: 08-07-2023 End: 10-51-1785sedhxpoodqRKFNMIOhioHealth Mansfield Hospital Start: 08-07-2023 End: 54-78-7827Rnogzowdr for preprocedural cardiovascular examinationGEORGE [facility]ertart: 09-35-2854Mfsgocmab for other preprocedural examinationJAMES [facility] Hospitaltart: 08-01-2023 End: 11-13-3377amueykzsshOPKJB A [facility] Hospitaltart: 07-30-2023 End: 42-91-7328xpldbdpizzKCGCT A HUDDLESTONNot AvailableStart: 07-22-2023 End: 40-37-6141tthxljyavjTPNJA A HUDDLESTONNot AvailableStart: 07-16-2023 End: 98-91-5166uejuwjstxyTPEEE A HUDDLECIBOLA GENERAL HOSPITALNot AvailableStart: 06-05-2023 End: 43-65-3934ygfdyttcmhFcdpmkjtuOhioHealth O'Bleness Hospital Work Phone: Start: 06-05-2023 End: 75-64-4823Fqmkvnofh for general adult medical examination without abnormal findingsChildren's Hospital for Rehabilitationtart: 06-05-2023 End: 79-13-7346Uareoht encounter procedureW[facility]emed [facility] Work Phone: Start: 70-79-0135Pjm-patient / Non-visitFirsentara [facility] Work Phone: Start: 26-99-7167Kzx-patient / Non-visitFirlake ozarks [facility] Work Phone: Start: 62-81-2724Jmt-patient / Non-visitFirlake ozarks [facility] Work Phone: Start: 05-07-2023 End: 25-09-5212ktkqaitdzcNXUSK T OLSENNot AvailableStart: 04-30-2023 End: 78-08-3935tlzhboeufpBGFWZ A HUDDLESTONNot AvailableStart: 04-09-2023 End: 89-00-2791fsznsfnjsoLTUFY A HUDDLESTONNot AvailableStart: 04-01-2023 End: 73-22-5391vjeaitrpfxRLRRB T OLSENNot AvailableStart: 13-66-6897Swiivcs encounter procedureЮлия [facility]-Start: 03-18-2023 End: 24-73-2599pvpwuxqoygCIERV T OLSENNot AvailableStart: 06-30-2022 End: 79-88-4704tfuitcvopdQN HAIR MCCOYFacility:N1Owwbx: 06-21-2022 End: 73-37-4990mfckakdxsbEZ HAIR Hale WESTFacility:O2Sfgbr: 94-44-7993mlffrtgphz BRANDT MOUKARBELFacility:B6Imidh: 92-88-0818lainljdlmwXATSJZ MOUKARBEL Facility:M0Hoyah: 05-31-2022 End: 63-57-5011dyebljcyklZMZSUR MOUKARBELFacility:K0Zersg: 05-22-2022 End: 56-58-8517eezdywmqtxSMEZC M LUE .Facility:X6Xyxwy: 05-18-2022 End: 84-40-1827ajmutkifjrHHHTO M LUE .Facility:P4Fgtks: 04-17-2022 End: 32-25-0636kxokqojtmbWR SON Villafanacility:O4Iyrsc: 41-88-2641Glygkdwru for general adult medical examination without abnormal findingsDR SON WALLACE [facility]: 02-09-2022 End: 97-10-4000mkywwxhquzKB SON Villafanacility:U2Xdejq: 02-09-2022 End: 68-49-8399Gyqxamxny for general adult medical examination without abnormal findingsDR SON Villafanacility:J2Wnkua: 12-07-2021 End: 02-74-3597Ggbslvh encounter procedureRachelle Whitfield [facility] Start: 10-09-2021 End: 78-40-7680xbealredhuXCLBK M LUE .Facility:H5Xkcgu: 06-19-2021 End: 81-04-8501Xgtbrkp encounter procedureKatderrell Reyes. Lue [facility] [place] Start: 05-03-2017 End: 09-68-8412Tjwewmptbh and management of inpatientFamily Physician UnavailableFacility:[facility] Procedures DateProcedureProcedure DetailPerforming ClinicianStart: 09-62-8721Saixehesfgi Son Ball DO Work Phone: Start: 44-78-8184GljwecbhmlEkvvc Lue Start: 24-11-9674TfiwmcowrxTgugt Lue Start: 17-66-2511LfxrtvpzdfBbsht Lue Comment on above:Rt rigid/ Rt ureter/ Rt basket extractionStart: 12-09-9793Satzwcadhpoasr shockwave lithotripsy of calculus of kidneyKathy Lue Comment on above:LtStart: 75-71-7394Czyejzrsfajitr shockwave lithotripsy of calculus of kidneyKathy Lue Comment on above:RtStart: 85-92-0982MlptvhxkbdDbzcs Lue Comment on above:Rt Rg/ Rt ureter/ holmium/ basket extractionStart: 82-82-1075TgrcqudgheMikyi Lue Start: 60-14-0722Wdnyqcgcwqebyh shockwave lithotripsy of calculus of kidneyKathy Lue Comment on above:LtStart: 54-37-1020Fvshtdmkxirjua shockwave lithotripsy of calculus of kidneyKathy Lue Comment on above:RtStart: 64-75-1738FgrwdoxbkbZfbve Lue Start: 63-15-5854Erggmg of stress incontinence by suprapubic slingKathy Lue Start: 44-51-5722Josskk of stress incontinence by suprapubic slingKathy Lue Start: 14-94-8326JcudazgrfoRdtao Lue Start: 06-82-9145EnuzcuiolgVjgms Lue Start: 53-64-1969Pjkwpttadn studiesKathy Lue Start: 30-61-1014Dqeyextfoxrfwn shockwave lithotripsy of calculus of kidneyKathy Lue Comment on above:RtStart: 41-74-2128Asuzjvjgvfmbvk shockwave lithotripsy of calculus of kidneyKathy Lue Comment on above:LtHysterectomyKathy Lue HysterectomyKathy Lue kidney surgeryKathy Lue Placement of stent in cardiac conduitKathy Lue Comment on above:r7Osleggnxw on shoulderKathy Lue stentsKathy Lue Plan of Treatment DateCare ActivityDetailAuthorStart: 06-40-8056TcyjicxkdSumma Health [facility] Start: 97-91-9624Cnktscx [facility] Work Phone: Patient EducationHemorrhoids Colon polyps Know your [facility] Work Phone: Patient [facility] Work Phone: [facility] Immunizations Immunization DateImmunizationNotesCare ProviderFacilityNEGATED: Highlighted row has not occurred!64-75-8076ldjwpkwkb virus vaccine, live, attenuated, for intranasal useRachelle Whitfield [facility] Payers DatePayer CategoryPayerPolicy [id number] 2025Private Health [id number]-ags [id number] Health [id number] 81-08-7400Sbct-[id number] 2.840.1.845344.3.57[id number] 2..840.1.158796.3.57[id number] 2.840.1.072180.3.579.[id number] 2.16.840.1.971853.3.579.2.64214-99-3083Ybdwhhk9121430 2.16.840.1.270257.3.579.[id number] 2.16.840.1.049127.3.579.2.49063-22-8636Gzqlbky1761998 2.16.840.1.406573.3.579.2.94131-11-1575Cmlwipy7699361 2.16.840.1.145195.3.579.2.91396-93-8220Tyrpwoq5874653 2.16.840.1.461114.3.579.2.72303-86-5472Zaefwml8928837 2.16.840.1.955769.3.579.2.47942-17-5621Zihliil2792365 2.16.840.1.715660.3.579.2.20666-74-9900Tusoarh56482055 2.16.840.1.626435.3.579.2.322328-46-0401Twqfqze44011519 2.16.840.1.307595.3.579.2.979623-98-4490Jajtdlp37213192 2.16840.1.477294.3.579.2.709130-02-3651Lkrnijm25695443 2.16840.1.765883.3.579.2.639918-61-8661Fcgztuc76793307 2.16840.1.016592.3.579.2.151551-00-0235Niefixb38685030 2.16840.1.750764.3.579.2.504177-04-4339Jftcqcz6359435 2.16840.1.533951.3.579.2.644064-64-6940Ihjjmdv5837502 2.16840.1.631527.3.579.2.975693-04-3528Bprknjd5766287 2.16.840.1.665142.3.579.2.753512-23-4600Azthzus1390567 2.16840.1.904573.3.579.2.822513-85-7602Zyjwyzh8964168 2.16840.1.154423.3.579.2.443331-56-9247Fbwoenh0569697 2.16.840.1.783808.3.579.2.764535-45-6501Oginunx2231296 2.16.840.1.199162.3.579.2.683946-52-0899Dxoxawm0523338 2.16.840.1.336984.3.579.2.577059-68-0212Vyxtlxe8189081 2.16.840.1.976941.3.579.2.238798-17-2439Njznnhm7693103 2.16.840.1.444561.3.579.2.612683-66-8761Czvxmyz1673245 2.16.840.1.043690.3.579.2.944534-86-8288Acqupom8579046 2.16.840.1.701952.3.579.2.560895-36-7662Dlygvpc2284471 2.16.840.1.050260.3.579.2.868716-56-0907Qxoprdh703538 2.16.840.1.400856.3.579.2.582080-84-4804Fxzdzug11536967 2.16.840.1.726132.3.579.2.31078-73-7849Rgqpssx63221936 2.0.1.778663.3.579.2.727Medicarecab5a751-6498-4720-b12e-4a5f6cd12925Unknown [id number] 2.840.1.421803.3.579.2.531 Social History DateTypeDetailFacilityStart: 06-19-2021 End: 48-17-6615Ywlwysw smoking statusEx-smoker (finding)[facility] Sex Assigned At BirthFemale[facility] Start: 91-03-2562[facility] End: 01-99-4568UfuVhtfeb (finding)[facility]exual OrientationExec[facility] Goals DatePatient GoalDesired Activity/State Functional Status XuwwGrooskioybBnjgqsKffvprxf29-53-7820Xaiwlsmxcf StatusN/AExec[facility] Clinical Notes 06-19-2021 to 12-24-2024 Note Date & [id number] Hospital Discharge instructions Patient Education 12/24/2024 09:18:47 Kidney Stones, Faze-kq-Faux Kidney Stones Kidney stones are rock-like masses [...] pee. The stone usually leaves your body through your pee. A doctor may need to take out the stone. What are the causes? Kidney stones may be caused by: Too much calcium in the body. This may be caused by too much parathyroid hormone in the blood. Uric acid crystals in the bladder. The body makes uric acid when you eat certain foods. Narrowing of one or both of the ureters. A kidney blockage that you were born with. Past surgery on the kidney or the ureters. What increases the risk? You are more likely to develop this condition if: You have had a kidney stone in the past. Other people in your family have had kidney stones. You do not drink enough water. You eat a diet that is high in protein, salt (sodium), or sugar. You are very overweight (obese). What are the signs or symptoms? Symptoms of a kidney stone may include: Pain in the side of the belly, right below the ribs. Pain usually spreads to the groin. Needing to pee often or right away. Pain when peeing. Blood in your pee. Feeling like you may vomit (nauseous). Vomiting. Fever and chills. How is this treated? Treatment depends on the size, location, and makeup of the kidney stones. The stones will often pass out of the body when you pee. You may need to: Drink more fluid to help pass the stone. ?In some cases, you may be given fluids through an IV tube at the hospital. Take medicine for pain. Change your diet to help keep kidney stones from coming back. Sometimes, you may need: A procedure to break up kidney stones using a beam of light (laser) or shock waves. Surgery to remove the kidney stones. Follow these instructions at home: Medicines Take sfyy-ovc-gqcrulh and prescription medicines only as told by your doctor. Ask your doctor if the medicine prescribed to you requires you to avoid driving or using machinery. Eating and drinking Drink enough fluid to keep your pee pale yellow. ?You may be told to drink at least 8 10 glasses of water each day. This will help you pass the stone. If told by your doctor, change your diet. You may be told to: ?Limit how much salt you eat. ?Eat more fruits and vegetables. ?Limit how much meat, poultry, fish, and eggs you eat. Follow instructions from your doctor about what you may eat and drink. General instructions Collect pee samples as told by your doctor. You may need to collect a pee sample: ?24 hours after a stone comes out. ?8 12 weeks after a stone comes out, and every 6 12 months after that. Strain your pee every time you pee. Use the strainer that your doctor recommends. Do not throw out the stone. Keep it so that it can be tested by your doctor. Keep all follow-up visits. You may need X-rays and ultrasounds to make sure the stone has come out. How is this prevented? To prevent another kidney stone: Drink enough fluid to keep your pee pale yellow. This is the best way to prevent kidney stones. Eat healthy foods. Avoid certain foods as told by your doctor. You may be told to eat less protein. Stay at a healthy weight. Where to find more information National Kidney Foundation (NKF): kidney.org Urology Care Foundation (UCF): urologyhealth.org Contact a doctor if: You have pain that gets worse or does not get better with medicine. Get help right away if: You have a fever or chills. You get very bad pain. You get new pain in your belly. You faint. You cannot pee. This information is not intended to replace advice given to you by your health care provider. Make sure you discuss any questions you have with your health care provider. Document Revised: 10/19/2022 Document Reviewed: 10/19/2022 [employer] Patient Education 2023 [employer]. Follow Up Care 12/14/2024 13:42:38 With:Nahid KELLY, WILLOW Little, URO Address: [address] [place] [address]- [phone] When: Unknown Comments:f/u pending CT scan [facility] 10-16-2025 NotePatient Education Urology Kidney Stones Kidney stones are rock-like masses that form inside of the kidneys. Kidneys are organs that make pee (urine). A kidney stone may move into other parts of the urinary tract, including: ??? The tubes that connect the kidneys to the bladder (ureters). ??? The bladder. ??? The tube that carries urine out of the body (urethra). Kidney stones can cause very bad pain and can block the flow of pee. The stone usually leaves your body through your pee. A doctor may need to take out the stone. What are the causes? Kidney stones may be caused by: ??? Too much calcium in the body. This may be caused by too much parathyroid hormone in the blood. ??? Uric acid crystals in the bladder. The body makes uric acid when you eat certain foods. ??? Narrowing of one or both of the ureters. ??? A kidney blockage that you were born with. ??? Past surgery on the kidney or the ureters. What increases the risk? You are more likely to develop this condition if: ??? You have had a kidney stone in the past. ??? Other people in your family have had kidney stones. ??? You do not drink enough water. ??? You eat a diet that is high in protein, salt (sodium), or sugar. ??? You are very overweight (obese). What are the signs or symptoms? Symptoms of a kidney stone may include: ??? Pain in the side of the belly, right below the ribs. Pain usually spreads to the groin. ??? Needing to pee often or right away. ??? Pain when peeing. ??? Blood in your pee. ??? Feeling like you may vomit (nauseous). ??? Vomiting. ??? Fever and chills. How is this treated? Treatment depends on the size, location, and makeup of the kidney stones. The stones will often pass out of the body when you pee. You may need to: ??? Drink more fluid to help pass the stone. ? In some cases, you may be given fluids through an IV tube at the hospital. ??? Take medicine for pain. ??? Change your diet to help keep kidney stones from coming back. Sometimes, you may need: ??? A procedure to break up kidney stones using a beam of light (laser) or shock waves. ??? Surgery to remove the kidney stones. Follow these instructions at home: Medicines ??? Take zgfv-evj-rjkozqk and prescription medicines only as told by your doctor. ??? Ask your doctor if the medicine prescribed to you requires you to avoid driving or using machinery. Eating and drinking ??? Drink enough fluid to keep your pee pale yellow. ? You may be told to drink at least 8?10 glasses of water each day. This will help you pass the stone. ??? If told by your doctor, change your diet. You may be told to: ? Limit how much salt you eat. ? Eat more fruits and vegetables. ? Limit how much meat, poultry, fish, and eggs you eat. ??? Follow instructions from your doctor about what you may eat and drink. General instructions ??? Collect pee samples as told by your doctor. You may need to collect a pee sample: ? 24 hours after a stone comes out. ? 8?12 weeks after a stone comes out, and every 6?12 months after that. ??? Strain your pee every time you pee. Use the strainer that your doctor recommends. ??? Do not throw out the stone. Keep it so that it can be tested by your doctor. ??? Keep all follow-up visits. You may need X-rays and ultrasounds to make sure the stone has come out. How is this prevented? To prevent another kidney stone: ??? Drink enough fluid to keep your pee pale yellow. This is the best way to prevent kidney stones. ??? Eat healthy foods. ??? Avoid certain foods as told by your doctor. You may be told to eat less protein. ??? Stay at a healthy weight. Where to find more information ??? National Kidney Foundation (NKF): kidney.org ??? Urology Care Foundation (UCF): urologyhealth.org Contact a doctor if: ??? You have pain that gets worse or does not get better with medicine. Get help right away if: ??? You have a fever or chills. ??? You get very bad pain. ??? You get new pain in your belly. ??? You faint. ??? You cannot pee. This information is not intended to replace advice given to you by your health care provider. Make sure you discuss any questions you have with your health care provider. Document Revised: 10/19/2022 Document Reviewed: 10/19/2022 [employer] Patient Education ? 2023 [employer] 06-12-2024 [place] [address] Colonoscopy Procedure Report Signed Patient: Pam Snow MR#: [id number] : 1960 Acct:[id number] Age/Sex: 64 / F Adm Date: 5 Loc: Room: Type: [facility] Attending Dr: Fam Fernandez MD Copies to: DO Fam Mcnamara MD~ Colonoscopy Date/Provider 06/12/2024 Fam Fernandez MD Narrative Procedure: Colonoscopy with polypectomy Indication: 64-year-old female with a history of colon polyps presents for surveillance colonoscopy Pre-operative diagnosis: History of colon polyps Post-operative diagnosis: Colon polyps, hemorrhoids Sedation: propofol per anesthesia dept O2 oximetry, hemodynamic monitoring was performed pre, during, and post procedure. Patient was identified, H&P completed, patient was given full explanation of the procedure as well as associatedrisks and written consent wasobtained prior to procedure. Patient expressed complete understanding of the procedure as well as alternatives to the procedure and to anesthesia and agreed to proceed with the procedure as indicated. Patient was immediately reassessed prior to IV sedation. Under IV sedation, patient was placed in the left lateral decubitus position. Digital rectal exam was performed and normal. Colonoscope was inserted and passed proximally to the cecum, which was identified by the ileocecal valve, appendiceal orifice and cecal floor. Colonoscope was slowly withdrawnwith the findings as below. [place] bowel prep score was [good]. Findings: Melanosis coli throughout the colon Cecum: Normal. Ascending colon: Normal. Hepatic flexure: Normal. Transverse colon: Normal. Splenic flexure: Normal. Descending colon: 8 mm removed 4 mm sessile polyps removed with hot snare, bottle 1. Sigmoid colon: 5 mm sessile polyp removed with hot snare, bottle 2. Rectum: Normal. Retroflexed views: Demonstrated small hemorrhoids. Biopsy taken: no Complications: None EBL: minimal Recommendations: -Repeat colonoscopy in 3 to 5 years pending path -Follow up pathology -Follow up in the office as needed -Follow up with PCP Following a period of recovery, patient was seen and given full explanation of the procedure. Patient tolerated the procedure well and will be discharged in satisfactory, stable condition. Fam Fernandez MD Documented By: Fam Fernandez MD 06/12/24907 Signed By: 06/12/24 0922 [facility]04-04-2025 [place] [address] Gastroenterology H&P Signed Patient: Pam Snow MR#: [id number] : 1960 Acct:[id number] Age/Sex: 64 / F Adm Date: 5 Loc: Room: Type: [facility] Attending Dr: Fam Fernandez MD Copies to: DO Fam Mcnamara MD~ Date of Service: 06/12/2024 HISTORY & PHYSICAL: Patient's history with special attention to the cardiovascular, pulmonary systems and the current problem was reviewed with the patient immediately prior to the procedure. Present medications and doses reviewed in the EMR. Allergies and pertinent laboratory tests were also re viewedat this time in the EMR. The physical [...] Fernandez MD Documented By: Fam Fernandez MD 06/12/24906 Signed By: 06/12/24907 [facility]04-03-2025 Evaluation note* Diagnosis Onset Date Resolution Status Admit Date ASHD (arteriosclerotic heart disease) acuteApril 2024 8:19amChronic bronchitis, simpleacuteApril 2024 8:19am Elevated cholesterolacuteApril 2024 8:19amGERD (gastroesophageal reflux disease)acuteApril 2024 8:19amHypertensionacuteApril 2024 8:19am Nicotine addictionacuteApril 2024 8:19amPulmonary noduleacuteApril 2024 8:19amScreening for colon cancernoneactiveApril 2024 8:19amScreening mammogram for breast cancernoneactiveApril 2024 8:19amWellness examination noneactiveApr2024 8:19am [facility] Work Phone: 1(141) 196-831211-20-2024 NoteUT Cardiology - [facility] Subjective Pam Snow is a [...] Recurrent sinus infections 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 She [...] Judgment: Judgment normal. Allergies Allergies Allergen Reactions Cynaadb-Ayz-Get Reductase Inhibitors Unknown Medications Current Outpatient Medications: [...] 1,000 mcg/mL injection, , Disp: , Rfl: rnufemljktn-izlpbjibv-vqsfcjah (Trelegy El (more content not included)... [facility]05-29-2024 NoteUT Cardiology - [facility] Malia Snow is a 63 y.o. year old female patient being seen for CAD, statin intolerance, and stable angina. She needs cleared for shoulder surgery, scheduled 08/[address] Raya. She had EKG last week at [facility]. 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 Allergies Allergies Allergen Reactions Fpstapd-Fol-Zza Reductase Inhibitors Unknown Medications Current Outpatient Medications: aspirin 81 mg EC tablet, Take 81 mg by mouth in the morning., Disp: , Rfl: buPROPion XL (Wellbutrin XL) 300 mg 24 hr tablet, , Disp: , Rfl: cyanocobalamin (Vitamin B-12) 1,000 mcg/mL injection, , Disp: , Rfl: axjxchubjrv-ourujdpqz-ikgdnftj (Trelegy Ellipta) 100-62.5-25 mcg blister with device, 1 puff 1 (one) time each day at the same time., Disp: , Rfl: hydroCHLOROthiazide (HYDRODiuril) 25 mg ta (more content not included)... [facility]09-29-2022 Hospital Discharge instructions Patient Education 12/07/2021 15:35:55 Kidney Stones, Zyuv-ma-Dqqm Kidney Stones Kidney stones are rock-like masses [...] Follow these instructions at home: Medicines Take kwml-moi-qlszjes and prescription medicines only as told by [...] 08/13/2008 Document Revised: 07/14/2019 Document Reviewed: 07/14/2019 [employer] Patient Education 2020 [employer]. Follow Up Care 06/19/2021 15:23:52 With:Nahid KELLY, WILLOW Little, URO Address: When: Unknown [facility] 04-11-2022 Hospital Discharge instructions Patient Education [...] include: ?Spinach. ?Rhubarb. ?Beets. ?Potato chips and bengali fries. ?Nuts. If you regularly take a diuretic medicine, make sure to eat at least 1 2 fruits or vegetables high in potassium each day. These include: ?Avocado. ?Banana. ?Larue, prune, carrot, or tomato juice. ?Baked potato. [...] Casseroles. Pizza. Lasagna. Frozen meals. Potato chips. Mozambican fries. Summary You can reduce your risk [...] 06/22/2011 Document Revised: 06/17/2019 Document Reviewed: 02/05/2017 [employer] Patient Education 2020 [employer]. Follow Up Care 05/15/2021 15:10:22 With:Nahid KELLY, Rachelle Monroe, URL, URO Address: [facility] [address] [address]- When:09/18/2021 Comments:w/24hr urine [facility] evaluation + Plan note Future Appointments Appointment Date:10/02/2021 03:15:00 PM Scheduled Provider:Rachelle Whitfield MD Location:[facility] Appointment Type:URO Office Visit [facility] Evaluation + Plan note Future Appointments Appointment Date:06/07/2022 03:15:00 PM Scheduled Provider:Rachelle Whitfield MD Location:[facility] Appointment Type:URO Office Visit [facility] evaluation note* Diagnosis Onset Date Resolution Status ASHD (arteriosclerotic heart disease) acuteChronic bronchitis, simpleacuteElevated cholesterolacuteGERD (gastroesophageal reflux disease)acuteHypertensionacuteScreening for colon cancernoneactiveScreening mammogram for breast cancernoneactiveWellness examinationOhio [facility] Work Phone: evaluation note* Diagnosis Onset Date Resolution Status ASHD (arteriosclerotic heart disease) acuteChronic bronchitis, simpleacuteElevated cholesterolacuteGERD (gastroesophageal reflux disease)acuteHypertensionacuteScreening for colon cancernoneactiveScreening mammogram for breast cancernoneactiveVal[facility] examinationnonPe[facility] CenterD (arteriosclerotic heart disease)acuteChronic bronchitis, simpleacuteElevated cholesterolacuteHypertensionacutePreop exam for internal medicinenoneactive [facility] Work Phone: Evaluation note* Diagnosis Onset Date Resolution Status Fatigue acutePrimary insomniaacute [facility] Work Phone: Evaluation note* Diagnosis Onset Date Resolution Status Admit Date ASHD (arteriosclerotic heart disease) acuteApril 2024 8:19amChronic bronchitis, simpleacuteApril 2024 8:19am Elevated cholesterolacuteApril 2024 8:19amGERD (gastroesophageal reflux disease)acuteApril 2024 8:19amHypertensionacuteApril 2024 8:19am Nicotine addictionacuteApril 2024 8:19amPulmonary noduleacuteApril 2024 8:19amScreening for colon cancernoneactiveApril 2024 8:19amScreening mammogram for breast cancernoneactiveApril 2024 8:19amWellness examination noneactiveApril 2024 8:19am [facility] Work Phone: Evaluation noteNo assessment information available [facility] Work Phone: History and physical note Author Fam Fernandez [facility] CenterNote Date/TimeApril 2024 9:08[place] [address] Gastroenterology H&P Signed Patient: Pam Snow MR#: [id number] : 1960 Acct:[id number] Age/Sex: 64 / F Adm Date: 5 Loc: Room: Type: [facility] Attending Dr: Fam Feranndez MD Copies to: DO Fam Mcnamara MD~ Date of Service: 06/12/2024 HISTORY & PHYSICAL: Patient's history with special attention to the cardiovascular, pulmonary systems and the current problem was reviewed with the patient immediately prior to the procedure. Present medications and doses reviewed in the EMR. Allergies and pertinent laboratory tests were also re viewedat this time in the EMR. The physical [...] signed by Fam Fernandez MD> 06/12/24 0908 [facility] Work Phone: Hospital course Narrative No data available for this section [facility] Hospital Discharge instructions Additional Instructions DISCHARGE [...] problems. -Follow up with PCP. -Office number [phone].[facility] Work Phone: Progress note No data available for this section [facility] Reason for referral (narrative)No reason for referral information availableSelect [facility] Work Phone: Summary Purpose Family History No Family History Records Found Relationship Condition Age at Onset Recorded Date/T rudy father Unknown Relationship Condition Age at Onset Recorded Date/T rudy father Malignant neoplasm of lung Unknown Advance Directives No Advanced Directives Records Found Advance Directive Response Recorded Date/ Time Advance Directives No January 9:20pm Chief Complaint and Reason for Visit Chief Complaint Amb Documentation Amb Documentation WellnessReason for VisitASHD (arteriosclerotic heart disease) Chronic bronchitis, simple Elevated cholesterol GERD (gastroesophageal reflux disease) Hypertension Screening for colon cancer Screening mammogram for breast cancer Wellness examination Chief Complaint Wellness pre op [facility]Reason for VisitASHD (arteriosclerotic heart disease) Chronic bronchitis, simple Elevated [...] Admit Date ASHD (arteriosclerotic heart disease) Ap [facility] 2024 8:19am Chronic bronchitis, simple June 11 8:19am Elevated cholesterol June 11, 2024 8:1 9am GERD (gastroesophageal reflux disease) A pril 2024 8:19am Hypertension June 11, 2024 8:19 am Nicotine addiction June 11, 2024 8:19 am Pulmonary nodule June 11, 2024 8:19 am Screening for colon cancer June 11 8:19am Screening mammogram for breast cancer Ap [facility] 2024 8:19am Wellness examination June 11, 2024 8:1 9am Chief Complaint Admit Date wellness June 11, 2024 8:19 am hx of colon polyps June 12, 2024 7:34 am hx of colon polyps June 12, 2024 9:07 am Chief Complaint Admit Date bilateral ear pain December 21, 2024 9 :18am Additional Source Comments INFORMATION SOURCE (unrecogn ized section and content) DATE CREATED AUTHOR 08/30/2017 [facility] DATE CREATED AUTHOR AUTHOR'S ORGANIZ ATION 07/07/2022 [facility] DATE CREATED AUTHOR AUTHOR'S ORGANIZ ATION 08/29/2023 [facility] DATE CREATED AUTHOR AUTHOR'S ORGANIZ ATION 10/16/2023 [facility] DATE CREATED AUTHOR AUTHOR'S ORGANIZ ATION 02/01/2024 [facility] DATE CREATED AUTHOR AUTHOR'S ORGANIZ ATION 06/24/2024 [facility] DATE CREATED AUTHOR AUTHOR'S ORGANIZ ATION 12/25/2024 [facility] DATE CREATED AUTHOR AUTHOR'S ORGANIZ ATION 12/26/2024 [facility] Care Team (unrecognized sect ion and content) Team Status: Active Member Role Status Dates Son Wallace DO Primary Care Provider Active Team Status: Inactive Member Role Status Dates Son Wallace DO Primary Care Provide r, Attending Provider Active Start: June 11, 2024 End: Rosina 3rd, 2025 Team Status: Active Member Role Status Dates Provider Conversion Attending Provider Active St art: March 26, 2023 Team Status: Active Member Role Status Dates Son Wallace DO Primary Care Provider Active Start: May 08, 2023 Lissette Paulkris ProviderActiveStart: May 08, 2023 Team Status: Active Member Role Status Dates Son Wallace DO Primary Care Provider Active Start: May 08, 2023 Symone Joshi Vee ProviderActiveStart: May 08, 2023 Team Status: Active Member Role Status Dates Son Wallace DO Primary Care Provide r, Attending Provider Active Start: May 31, 2023 Team Status: Inactive Member Role Status Dates Son Wallace DO Primary Care Provide r, Attending Provider Active Start: June 05, 2023 End: June 05, 2023 Team Status: Inactive Member Role Status Dates Son Wallace DO Primary Care Provide r, Attending Provider Active Start: August 15, 2023 End: August 15, 2023 Team Status: Active Member Role Status Dates Son Wallace DO Primary Care Provider Active Start: November 19, 2023 Taj Linn ProviderActiveStart: November 19, 2023 Team Status: Inactive Member Role Status Dates Son Wallace DO Primary Care Provide r, Attending Provider Active Start: December 20, 2023 End: December 20, 2023 Team Status: Inactive Member Role Status Dates Son Wallace DO Primary Care Provider Active Start: June 12, 2024 End: June 12Taj Childs ProviderActiveStart: June 12, 2024 End: June 12, 2024 Team Status: Active Member Role Status Janice Wallace DO Primary Care Provider Active Start: June 12, 2024 Taj Rowe Provider, Other ProviderActiveStart: June 12, 2024 Team Status: Inactive Member Role Status Dates Son Wallace DO Primary Care Provider Active Start: December 21, 2024 End: December 21carrie Wallace DOAttrose ProviderActiveStart: December 21, 2024 End: December 21, 2024 Goals (unrecognized section and content) Goals [...] BE BASED ON THE PRIMARY CLINICAL RECORDS. [employer] [facility]. provides no warranty or guarantee of the accuracy or completeness of information in this document.
--- OUTSIDE RECORDS SUMMARY | 2025-01-01 07:47 | XMS_ITS | Clinical Summary ---
Author Organization [facility] Address [address] [place] [address] Care Team Providers Care Purification Supervisor Name Role Phone Son Irizarry DO Primary Care Provider [phone] Allergies Active AllergyReactionsCriticalityNoted DateCommentsCat HjqastXidvl57/25/2023 StatinsRash,OxepurtUva21/13/2023 Medications MedicationSigDispense QuantityRefillsLast FilledStart DateEnd DateStatus hydroCHLOROthiazide (HYDRODiuril) 25 MG tablet Take 25 mg by mouth in the morning.Active biotin 88934 MCG tablet 1 (one) time each day at the same time.Active aspirin 81 MG EC tablet Take 81 mg by mouth in the morning.Active cyanocobalamin (Vitamin B-12) 1000 MCG/ML injection 1 mL Azcreecmi81/24/2023ctive Trelegy Ellipta 100-62.5-25 MCG/ACT aerosol powder 1 puff 1 (one) time each day at the same time.06/25/2022ctive potassium citrate CR (Urocit-K-10) 10 mEq ER tablet 08/28/2021ctive buPROPion XL (Wellbutrin XL) 300 MG 24 hr tablet 06/19/2022ctive Praluent 150 MG/ML injection 11/22/2022ctive albuterol HFA 90 mcg/act inhaler every 4 (four) hoursActive Bempedoic Acid-Ezetimibe (NEXLIZET PO) Take by mouthActive metoprolol succinate XL (Toprol-XL) 25 MG 24 hr tablet Daily4Active metFORMIN XR (Glucophage-XR) 500 MG 24 hr tablet Indications:Insulin resistanceTake 1 tablet (500 mg) by mouth in the evening. Take with meals Do not crush, chew, or split. 30 tablet 11009/09/2023ctive Active Problems ProblemNoted DateDiagnosed DateAcute eapfylpx04/23/2023rteriosclerotic heart yggowmu0608/31/2022trophy of jrwcpt6108/31/2022entrilobular zatreyamg33/23/2023 Chest pain08/31/2022hronic btefwed1408/31/2022hronic obstructive pulmonary ofkhper1208/31/2022ongenital cavus deformity of left foot08/31/2022yspnea on zmpzixar88/23/2023eneralized anxiety hleigodp84/23/2023History of COVID-19 08/31/2022Lateral vkgudnkyegtgc93/23/2023iverticulum of renal calyx08/31/2022 Osteopenia of lumbar spine08/31/2022Overweight (BMI 25.0-29.9)08/31/2022 Pernicious xkbtpt7708/31/2022olyp of colon08/31/2022ure hypercholesterolemia 08/31/2022Stable tasmpl6908/31/2022Urinary tract frgzframv57/23/2023Vitamin D ryqdterjpr14/23/2023Recurrent sinus qtyxbuhhoj97/24/2023hronic cough08/01/2022 Chronic qbdicdhn26/24/2023Former vsibdw0308/01/2022 Overview (08/31/2022): Last Assessment & Plan: Former smoker and remains cessation Multiple pulmonary kiumsuf4508/01/2022Statin wzuogckxdnm03/24/2023 Overview (08/31/2022): mylagias- is intolerant in the past with lipitor, crestor, zocor, pravastatin and Zetia (GI upset). Last Assessment & Plan: Remains on pralulent injections for lipid management Essential ndhwqbzxnkfy72/13/2023 Overview (08/31/2022): Last Assessment & Plan: Hypertension is well controlled at home typically 115-126/70 Continue current med regime. History of malignant neoplasm of uterine body05/21/20228160Hpnskuhttwikvy56/13/2023 Overview (08/31/2022): Last Assessment & Plan: Pt has been intolerant to multiple statins in the past including lipitor, pravastatin, crestor, zocor and zetia- with horrible myalgias. Previous shop estimator started her on pralulent 75 mg q 2 weeks for hyperlipidemia and CAD. Her Lipids are improved but not at goal of Chol < 200 or LDL < 70 with CAD. Therefore will increase pralulent to 150 mg subcutaneous q 2 weeks and repeat lipids level in 3 months- pt voiced understanding and agreement. Increased frequency of ajxpvgkrs76/13/2023Microscopic lafabraaq47/13/2023 Dqqjazwc83/13/2023Subdural vxyaoorr86/13/2023Urinary norwsaapu59/13/2023 Family History Medical HistoryRelationNameCommentsHeart diseaseBrotherThyroid diseaseDaughter Heart diseaseFatherHyperlipidemiaFatherHypertensionFatherLung cancerFather ArthritisMotherHeart diseaseMotherHypertensionMotherHeart diseasePaternal GrandfatherDiabetesPaternal GrandmotherCOPDSiblingHeart diseaseSibling HyperlipidemiaSiblingHypertensionSiblingRelationNameStatusCommentsBrother2 brothersDaughterFatherDeceasedMotherDeceasedPaternal GrandfatherPaternal GrandmotherSiblingSister4 sistersSonAlive2 sons Social History Tobacco UseTypesPacks/DayYears UsedDateSmoking Tobacco: FormerCigarettesQuit: 2010Smokeless Tobacco: Never Tobacco Cessation:Counseling Given: Not Answered Alcohol UseStandard Drinks/WeekCommentsNever0 (1 standard drink = 0.6 oz pure alcohol)CommentsNoSex and Gender InformationValueDate RecordedSex Assigned at OjmctTxnuxv14/23/2023 9:37 AM EDTLegal ZbhQlrrsl50/15/2023 7:59 PM EDTGender MeolyhyiKmqxcc55/23/2023 9:37 AM EDTSexual OrientationStraight 07/31/2022 9:37 AM EDT Last Filed Vital Signs Vital SignReadingTime TakenCommentsBlood Gxkkaulh238/7007 4:20 PM EDT Uilii686508/02/2022 3:54 PM XLNYmnzonvuytt40.4 ??C (97.5 ??F)08/02/2022 3:54 PM EDTRespiratory Rate--Oxygen Ladtpteuuq96%08/02/2022 3:54 PM EDTInhaled Oxygen Concentration--Xlhdqz55.3 kg (155 lb)07/30/2023 4:05 PM EQBJoocbp784.1 cm (5' 5 )07/30/2023 4:05 PM EDTBody Mass Index25.7907/30/2023 4:05 PM EDT Plan of Treatment Not on file Insurance Care Teams Team MemberRelationshipSpecialtyStart DateEnd Date Son Irizarry DO PCP - GeneralInternal Medicine08/02/22
--- OUTSIDE RECORDS SUMMARY | 2025-01-01 07:47 | XMS_ITS | Clinical Summary ---
Author Organization [facility] Address [address] [place] [address] Care Team Providers Care Maternal Fetal Physician Name Role Phone Son Irizarry DO Primary Care Provider Allergies Active AllergyReactionsCriticalityNoted KohtXkvxygeqNniwkan-Jcw-Bed Reductase DswtznwftjWfniuzy90/13/2023 Medications MedicationSigDispense QuantityRefillsLast FilledStart DateEnd DateStatus cyanocobalamin (Vitamin B-12) 1,000 mcg/mL injection 04/03/2022ctive buPROPion XL (Wellbutrin XL) 300 mg 24 hr tablet 04/02/2022ctive hydroCHLOROthiazide (HYDRODiuril) 25 mg tablet Take 25 mg by mouth in the morning.04/02/2022ctive aspirin 81 mg EC tablet Take 81 mg by mouth in the morning.Active wgoupwosnhu-ulzlnjyjp-rjpetocz (Trelegy Ellipta) 100-62.5-25 mcg blister with device 1 puff 1 (one) time each day at the same time.06/25/2022ctive potassium citrate CR (Urocit-K-10) 10 mEq ER tablet Take 10 mEq by mouth with breakfast and with evening meal.06/19/2022ctive metoprolol succinate XL (Toprol-XL) 25 mg 24 hr tablet Indications:Coronary artery disease involving [place] coronary artery of [place] heart without angina pectoris,Primary hypertensionTAKE 1 TABLET BY MOUTH IN THE MORNING (DO NOT CRUSH OR CHEW) 90 tablet 5Active Nexletol 180 mg tablet Indications:Familial hypercholesterolemiaTAKE 1 TABLET BY MOUTH IN THE MORNING 90 tablet 5Active Praluent Pen 150 mg/mL pen injector Indications:Mixed hyperlipidemia,Statin intoleranceINJECT THE CONTENTS OF 1 PEN SUBCUTANEOUSLY EVERY 2 WEEKS 6 mL 307/18/2025Active Active Problems ProblemNoted DateDiagnosed DatePrimary xaiwkirx60/20/2024hronic bronchitis, rcoigg3808/07/2023GERD (gastroesophageal reflux disease)08/07/2023Long term (current) use of inhaled /29/5096Gcksnjk33/29/2024trophy of vagina entrilobular keoqcates04hronic fatigue hronic obstructive pulmonary Congenital cavus deformity of left footyspnea on exertion eneralized anxiety tdckhtpl53History of COVID-190Lateral gfnugrdpoqinz79Osteopenia of lumbar spineStable hfcsyu11 Assessment & Plan (01/30/2023 3:44 PM EST): Denied any angina since last visit Pure wgrhqwecqvtbsnbhzkzu03/23/202308/25/2023 Assessment & Plan (01/30/2023 3:45 PM EST): Lipid abnormalities are stable with praluent use r/t her being intolerant of statins and zetia. She is to send most recent lipid level Assessment & Plan (11/02/2022 9:05 AM EDT): Lipid abnormalities remain elevated with increased dose of praulent 150 mg subcutaneous States that she is returning to regular exercise and vegan diet. Will D/W Dr Rivers-interventionalist about how to proceed Polyp of colonernicious wigrja12 Overweight (BMI 25.0-29.9)Urinary tract mtbuphssm80/23/2023 11/02/2022Vitamin D ljlhxblvah75/23/202308/hronic cough08/01/2022 Multiple pulmonary kohxzwj1508/01/2022hronic olacxsbg86/24/2023Recurrent sinus tpkqpizxdb26/24/2023oronary artery disease of [place] artery of [place] heart with stable angina udgnzzaf91/24/2023 Assessment & Plan (01/30/2023 3:57 PM EST): Coronary artery disease is stable Continue GDMT- ASA, praluent continue risk factor modifications- heart healthy diet, regular exercise as tolerated and continue all medications. Assessment & Plan (11/02/2022 8:52 AM EDT): Coronary artery disease is stable without any concerning or limiting symptoms. Continue ASA, praluent Continue GDMT continue risk factor modifications- heart healthy diet, regular exercise as tolerated and continue all medications. Assessment & Plan (08/01/2022 4:36 PM EDT): Coronary artery disease is stable without any concerning symptoms Continue GDMT- Asa, pralulent, she was not beta erlin tolerant r/t fatigue. continue risk factor modifications- heart healthy diet, regular exercise as tolerated and continue all medications. Statin litxaoylozb18/24/2023 Overview (08/01/2022): mylagias- is intolerant in the past with lipitor, crestor, zocor, pravastatin and Zetia (GI upset). Assessment & Plan (01/30/2023 3:57 PM EST): Currently treated with praluent injection Assessment & Plan (08/01/2022 4:46 PM EDT): Remains on pralulent injections for lipid management Former iipxjg7408/01/2022 Assessment & Plan (08/01/2022 4:47 PM EDT): Former smoker and remains cessation Chronic ymxgdwye34/13/2023iverticulum of renal calyx05/21/2022Flank pain 05/21/2022History of malignant neoplasm of uterine body05/21/2022Hyperlipidemia 05/21/2022 Assessment & Plan (08/01/2022 4:35 PM EDT): Pt has been intolerant to multiple statins in the past including lipitor, pravastatin, crestor, zocor and zetia- with horrible myalgias. Previous corporate consultant started her on pralulent 75 mg q 2 weeks for hyperlipidemia and CAD. Her Lipids are improved but not at goal of Chol < 200 or LDL < 70 with CAD. Therefore will increase pralulent to 150 mg subcutaneous q 2 weeks and repeat lipids level in 3 months- pt voiced understanding and agreement. Ygwnqlvvkjpq59/13/2023 Assessment & Plan (01/30/2023 3:46 PM EST): Hypertension is currently well controlled 116/76 Continue all medications- hydrochlorothiazide Assessment & Plan (08/01/2022 4:36 PM EDT): Hypertension is well controlled at home typically 115-126/70 Continue current med regime. Increased frequency of klhyywzoz14/13/2023Microscopic /13/2023 Vuujqoei00/13/2023Subdural putepnfz05/13/2023Urinary apvlygrcm92/13/2023ge- related osteoporosis without current pathological untswycs77/19/2019 Family History Medical HistoryRelationNameCommentsAtrial fibrillationBrotherCoronary artery diseaseBrotherHeart failureBrothervalve replacementMotherCoronary artery disease SisterPeripheral vascular diseaseSisterRelationNameStatusCommentsBrotherMother Sister Social History Tobacco UseTypesPacks/DayYears UsedDateSmoking Tobacco: FormerCigarettesQuit: 2009Smokeless Tobacco: Never Tobacco Cessation:Counseling Given: Not Answered [place] Safety & EnvironmentAnswerDate RecordedFear of Current or Ex-PartnerNot on file05/02/2023Emotionally AbusedNot on file05/02/2023hysically AbusedNot on file05/02/2023Sexually AbusedNot on file05/02/2023hysically or Sexually Abused Not on file05/02/2023CommentsUnknownSex and Gender InformationValueDate RecordedSex Assigned at BirthNot on fileLegal QgeHooxfg00/29/2022 10:40 PM EDT Gender IdentityNot on fileSexual OrientationNot on file Last Filed Vital Signs Vital SignReadingTime TakenCommentsBlood Cyesiouu263/7001/29/2024 4:20 PM EST Dpvdk053501/29/2024 4:20 PM ESTTemperature--Respiratory Rate--Oxygen Sztczbqxyb31% 01/29/2024 4:20 PM ESTInhaled Oxygen Concentration--Wxinul72.9 kg (163 lb) 01/29/2024 4:20 PM HLUTvdbga004.6 cm (5' 4 )01/29/2024 4:20 PM ESTBody Mass Index27.9801/29/2024 4:20 PM EST Plan of Treatment DateTypeDepartmentCare Team (Latest Contact Info)Wqpfgvmogai62/06/2025 3:00 PM ESTOffice Visit [facility] [address] [place] [address] Adolph Ruiz, [employer] [address] [place] [address] Health MaintenanceDue DateLast DoneCommentsCT Jxbktiydujyy1959Colonoscopy 1960Colorectal Cancer Yeyunjtuf1959FIT-DNA1959FIT1960 FOBT1960 8960Uhlqcuwsdeoiq1959Depression Vtitnqart23/04/1971Pneumococcal Vaccine: 50+ Years (1 of 2 - PCV)1978Adult Iiqumll0301/12/1981HPV/Cotest 1989Zoster Vaccines (1 of 2)2009Fall Risk Kcllqyggg92/04/2024 Rutvlakxa32/10/1483533COVID-19 Vaccine (3 - season)2024 11/11/2020, 10/21/2020Influenza Vaccine (#1)2024ervical Cancer Screening 09/08/2026Pap Smear07//03/2023, 04/24/2021HIB VaccinesAged OutNo longer eligible based on patient's age to complete this topicHPV VaccinesAged OutNo longer eligible based on patient's age to complete this topicIPV VaccinesAged OutNo longer eligible based on patient's age to complete this topicMeningococcal B VaccineAged OutNo longer eligible based on patient's age to complete this topicMeningococcal VaccineAged OutNo longer eligible based on patient's age to complete this topicRotavirus VaccinesAged OutNo longer eligible based on patient's age to complete this topic Insurance Care Teams Team MemberRelationshipSpecialtyStart DateEnd Son Irizarry DO [address] [facility] [place] [id number] [facility]05/21/22
--- OUTSIDE RECORDS SUMMARY | 2025-01-01 07:47 | XMS_ITS | Clinical Summary ---
Author Organization [facility] [facility] Address [id number] [address] [place] [address] Care Team Providers Care String Cutter Name Role Phone Son Irizarry Primary Care Provider [phone] Allergies Active AllergyReactionsCriticalityNoted FzmnShefkeqgVkwlphc-Pxk-Vlx Reductase Inhibitorsmuscle zndyiu8408/01/2023 Medications MedicationSigDispense QuantityRefillsLast FilledStart DateEnd DateStatus alirocumab (PRALUENT PEN) 150 mg/mL pen injector Inject 150 mg under the skin every 14 (fourteen) days.Active buPROPion XL (WELLBUTRIN XL) 300 mg 24 hr tablet Take 1 tablet (300 mg total) by mouth in the morning.Active hydroCHLOROthiazide (HYDRODIURIL) 25 mg tablet Take 1 tablet (25 mg total) by mouth 2 (two) times a day before meals.Active potassium chloride (KLOR-CON) 20 mEq packet Take 1 packet (20 mEq total) by mouth in the morning and 1 packet (20 mEq total) before bedtime.Active aspirin 81 mg Take 1 tablet (81 mg total) by mouth in the morning.Active biotin 1 mg capsule Take by mouth daily.Active gohvjmtknuo-abztzwbuu-dkjucesu (TRELEGY ELLIPTA) 100-62.5-25 mcg blister with device Inhale 1 puff in the morning.Active metoprolol tartrate (LOPRESSOR) 50 mg tablet Take 1 tablet (50 mg total) by mouth in the morning.Active bempedoic acid 180 mg tablet Take 180 mg by mouth in the morning.Active Family History Medical HistoryRelationNameCommentsCancerFatherlungHeart diseaseMother ParkinsonismMotherRelationNameStatusCommentsFatherDeceasedMotherDeceased Social History Tobacco UseTypesPacks/DayYears UsedDateSmoking Tobacco: FormerCigarettes Smokeless Tobacco: Never Tobacco Cessation:Counseling Given: Not Answered Alcohol UseStandard Drinks/WeekCommentsNot Currently0 (1 standard drink = 0.6 oz pure alcohol)ChildcareAnswerDate AcqiqimdYexhoupcgDoeykwl63/12/2019Employment AnswerDate IishjaorZibvsowbkgIvxuxpe47/12/2019CommentsNoSex and Gender InformationValueDate RecordedSex Assigned at BirthNot on fileLegal SexFemale 10/14/2014 11:37 AM EDTGender IdentityNot on fileSexual OrientationNot on file Last Filed Vital Signs Vital SignReadingTime TakenCommentsBlood Gwsnmjpy443/78008/28/2023 11:46 AM EDT Sqcep502008/28/2023 11:46 AM CAYDoubnjlqrzm13.5 ??C (97.7 ??F)08/28/2023 11:14 AM EDTRespiratory Xnvd043908/28/2023 11:46 AM EDTOxygen Uokqlwunnm13%08/28/2023 11:46 AM EDTInhaled Oxygen Concentration--Lpcuow01.7 kg (158 lb)08/28/2023 8:04 AM EDT Rgsjpf197.6 cm (5' 4 )08/28/2023 8:04 AM EDTBody Mass Index27.12008/28/2023 8:04 AM EDT Plan of Treatment Health MaintenanceDue DateLast DoneCommentsDepression Wfqtmcmqr31/04/1971 DTaP,Tdap and Td Vaccines (1 - Tdap)1978Zoster (Shingles) Vaccine (1 of 2) 2009Fall Risk Zfhdpabri45/04/2024dult BMI Klrensmbq66/ Tobacco Ewqsxppkd34OVID-19 Vaccine (3 - 2024- season) 509/05/2020, 10/21/2020Influenza Rkstkay2211/09/2024Pap SmearDiscontinued 04/24/2021 Medical Devices ImplantedTypeAreaManufacturerDevice IdentifierShelf Expiration DateModel / Serial / LotHealicoil Knotless Regenesorb Suture [place] 5.5mm, Self Tapping Implanted:Qty: 1 on 08/28/2023 by Pierce Raya DO at [facility] ImplantLeft: ShoulderSMITH AND NEPHEW ORTHO04/24/2025 [id number] / N/A / [id number] Implant W/Arthro Del Pkg Med Implanted:Qty: 1 on 08/28/2023 by Pierce Raya DO at [facility] ImplantLeft: ShoulderSMITH AND NEPHEW ORTHO/[id number] / N/A / [id number] Sut Regeneten Tndn Rotr Cuf Repr - Sn/A - [id number] Implanted:Qty: 1 on 08/28/2023 by Pierce Raya DO at [facility] ImplantLeft: ShoulderSmith & [id number] / N/A / [id number] Sut Bn Ascp Dlv - Sn/A - [id number] Implanted:Qty: 1 on 08/28/2023 by Pierce Raya DO at [facility] ImplantLeft: ShoulderSmith & [id number] / N/A / [id number] Insurance Care Teams Team MemberRelationshipSpecialtyStart DateEnd Date Son Irizarry DO [address] [place] [address] PCP - GeneralInternal Medicine08/01/23
--- NOTE | 2025-01-01 07:49 | CT_ITS ---
The [address] [address] Patient Name: SVETLANA BURENTT MRN: [id number] date: 1960 Sex: F Assigned Patient Location: CT Current Patient Location: CT Accession/Order Number: [id number] Exam Date: 01/01/2025 07:50 Report Date: 01/01/2025 08:59 At the request of: LATASHA ROLLINS MD Procedure: CT abdomen pelvis wo con CT ABDOMEN AND PELVIS WITHOUT CONTRAST COMPARISON: 12/18/2019 CLINICAL DATA: Kidney stones with intermittent flank pain. Spiral images were obtained through the abdomen and pelvis without contrast. This CT exam was performed using one or more following dose reduction techniques: Automated exposure control, adjustment of the mA and/or kV according to patient size, or use of iterative reconstruction technique. Limited cuts through the lung bases show minor atelectasis or scarring. Evaluation of the intra-abdominal organs is slightly limited by the absence of contrast. The gallbladder is contracted. No obvious calcified gallstones are seen. No intrahepatic masses are visualized. The spleen, pancreas and adrenal glands show no acute findings. Multiple similar calcifications are seen at the renal pyramids and calyces bilaterally measuring up to 5 - 6 mm.. There is also still a hypodensity with rim calcification at the superior pole of the left kidney. No hydronephrosis is currently visualized. No ureteral dilatation or stones are seen. There is atherosclerotic plaque at the aorta, iliac and some of the visceral arteries, particularly in the proximal superior mesenteric artery where significant stenosis is again seen. There are no enlarged lymph nodes. No ascites is identified. The small bowel loops are normal caliber. Moderate food debris and fluid are seen within the stomach. There is stool along the colon. There is subtle thoracolumbar levoscoliotic curvature and multilevel degenerative changes at the spine. Images through the pelvis show a small umbilical hernia containing fat. There are normal caliber small bowel loops. There is stool at the distal colon. No diverticular disease is noted. The appendix and uterus are surgically absent. No urinary bladder abnormalities are noted. There is no ascites. CT/CT abdomen pelvis wo con IMPRESSION: SIMILAR BILATERAL NEPHROLITHIASIS AND MILDLY COMPLICATED LEFT RENAL CYST. NO BOWEL OR URINARY TRACT OBSTRUCTION. NO ACUTE FINDINGS. Impression dictated by: Laine Torres M.D. 01/01/2025 8:59 AM Dictation Location: [place] [address] Electronically authenticated by: [id number] Y Date: 01/01/2025 08:59
== END 2025-01-01 07:44 | disposition home or self-care (01) ==
LOC: CT 07:44
PROVIDERS: PCP Internal Medicine; Visit Provider Urology
DX: N20.0 Calculus of kidney (principal); N28.1 Cyst of kidney, acquired
CPT/HCPCS: 74176

== ENCOUNTER 2025-01-23 07:11 | Outpatient (OUT) | payer OTHER, SELFPAY ==
--- OUTSIDE RECORDS SUMMARY | 2025-01-23 07:14 | XMS_ITS | Encounter Summary ---
Author Organization [facility] Address [address], [address] [place] [address] Care Team Providers Care Freight Car Cleaner [employer] Name Role Phone Son Irizarry DO Primary Care Provider [phone] Reason for Visit * ReasonOnset DnolGwrwwodrKwsry29/12/2025 Encounter Details DateTypeDepartmentCare Team (Latest Contact Info)Drbiqcvwzaf37/12/2025Telephone [facility] [address] [place] [address] [facility]oa[facility] ram[facility] [address] [place] [address] Other Social History Tobacco UseTypesPacks/DayYears UsedDateSmoking Tobacco: Never Assessed CommentsUnknownSex and Gender InformationValueDate RecordedSex Assigned at Djlpnl1701/21/2025 11:54 AM ESTLegal VkdWanvcy97/10/2013 11:53 AM ESTGender UxiirmrbCmavls86/13/2025 11:54 AM ESTSexual VmacwrqbdiaYqgjmtla42/13/2025 11:54 AM ESTdocumented as of this encounter Plan of Treatment DateTypeDepartmentCare Team (Latest Contact Info)Ozodbfssyko18/03/2025 8:00 AM ESTOffice Visit [facility] [address] [place] [address] [address] [place] [address] Joaquin Nicholson, [address] [place] [address] COPD -TX FROM TBHdocumented as of this encounter Visit Diagnoses Not on filedocumented in this encounter Care Teams Team MemberRelationshipSpecialtyStart DateEnd Date Son Irizarry DO [address] [place] [id number] PCP - GeneralInternal Wuehazxn62/12/25documented as of this encounter
--- OUTSIDE RECORDS SUMMARY | 2025-01-23 07:14 | XMS_ITS | Clinical Summary ---
Author Organization [facility] tem Address [id number] [address] [place] [address] Care Team Providers Care Cream Buyer Name Role Phone Son Irizarry Primary Care Provider [phone] Allergies Active AllergyReactionsCriticalityNoted OqueUsipsuldLhwqpbg-Phu-Cgt Reductase Inhibitorsmuscle afjibs7908/01/2023 Medications MedicationSigDispense QuantityRefillsLast FilledStart DateEnd DateStatus alirocumab [...] 1 mg capsule Take by mouth daily.Active qkwkkuyfjtn-ugriawfgu-rzpxigwi (TRELEGY ELLIPTA) 100-62.5-25 mcg blister with device [...] standard drink = 0.6 oz pure alcohol)ChildcareAnswerDate TnspienyYjclobqnqSqpuidm02/12/2019Employment AnswerDate ZcfzobvjIdondmldiuStiictm55/12/2019CommentsNoSex and Gender InformationValueDate RecordedSex Assigned at BirthNot on fileLegal SexFemale 10/14/2014 11:37 AM EDTGender IdentityNot on fileSexual OrientationNot on file Last Filed Vital Signs Vital SignReadingTime TakenCommentsBlood Msphjyqm437/78008/28/2023 11:46 AM EDT Udpug216908/28/2023 11:46 AM YVXFbjwafxobsf63.5 ??C (97.7 ??F)08/28/2023 11:14 AM EDTRespiratory Mlso141508/28/2023 11:46 AM EDTOxygen Sweaasmhba49%08/28/2023 11:46 AM EDTInhaled Oxygen Concentration--Hewuzq13.7 kg (158 lb)08/28/2023 8:04 AM EDT Ebdeki773.6 cm (5' 4 )08/28/2023 8:04 AM EDTBody Mass Index27.12008/28/2023 8:04 AM EDT Plan of Treatment Health MaintenanceDue DateLast DoneCommentsDepression Wgoxfnpro60/04/1971 DTaP,Tdap and Td Vaccines (1 - Tdap)1978Zoster (Shingles) Vaccine (1 of 2) 2009Fall Risk Bawnslhvc42/04/2024dult BMI Gnqkxlduu13/ Tobacco Rvakrjtjx494COVID-19 Vaccine (3 - 2024- season) 509/05/2020, 10/21/2020Influenza Hhfxxbw2411/09/2024RSV ( or age 60+ yrs) (1 - 1-dose 75+ series)4Pap QhmcxWxjpgnqnmmes29/14/2022 Medical Devices ImplantedTypeAreaManufacturerDevice IdentifierShelf Expiration DateModel / Serial / LotHealicoil Knotless Regenesorb Suture [place] 5.5mm, Self Tapping Implanted:Qty: 1 on 08/28/2023 by Pierce Raya DO at [facility] ImplantLeft: ShoulderSMITH AND NEPHEW ORTHO04/24/2025 [id number] / N/A / [id number] Implant W/Arthro Del Pkg Med Implanted:Qty: 1 on 08/28/2023 by Pierce Raya DO at [facility] ImplantLeft: ShoulderSMITH AND NEPHEW [id number] / N/A / [id number] Sut Regeneten Tndn Rotr Cuf Repr - Sn/A - [id number] Implanted:Qty: 1 on 08/28/2023 by Pierce Raya DO at [facility] ImplantLeft: ShoulderSmith & [id number] / N/A / [id number] Sut Bn Ascp Dlv - Sn/A - [id number] Implanted:Qty: 1 on 08/28/2023 by Pierce Raya DO at [facility] ImplantLeft: ShoulderSmith & [id number] / N/A / [id number] Insurance Care Teams Team MemberRelationshipSpecialtyStart DateEnd Date Son Irizarry, [address] [place] [address] PCP - GeneralInternal Medicine08/01/23
--- OUTSIDE RECORDS SUMMARY | 2025-01-23 07:15 | XMS_ITS | Clinical Summary ---
Author Organization [facility] Address [address] [facility], [address] [place] [address] Care Team Providers Care Environmental Consultant Name Role Phone Son Irizarry DO Primary Care Provider [phone] Encounters DateTypeDepartmentCare MvjcEuwiwavlnvs53/12/2025Telephone [facility] [address] [place] [address] Joaquin Nicholson DO Otherfrom Last 3 Months Social History Tobacco UseTypesPacks/DayYears UsedDateSmoking Tobacco: Never Assessed CommentsUnknownSex and Gender InformationValueDate RecordedSex Assigned at Roitcl8101/21/2025 11:54 AM ESTLegal RtbYegmki91/10/2013 11:53 AM ESTGender GcidjfezNixfoa70/13/2025 11:54 AM ESTSexual UbovoskptinXpkvusly51/13/2025 11:54 AM EST Plan of Treatment DateTypeDepartmentCare Team (Latest Contact Info)Gracgkarkxk39/03/2025 8:00 AM ESTOffice [facility] [address] [place] [address] [address] [place] [address] Joaquin Nicholson DO [address] [place] [address] 6 [place] [address] [facility] MaintenanceDue DateLast DoneCommentsDepression Screen 1971Hepatitis C ymjkhl0701/12/1977DTaP/Tdap/Td vaccine (1 - Tdap)1978 Breast cancer cnydib7801/12/19993460Wmootv10/04/2850Fmlzidyrtjc43/04/2004Colorectal Cancer Wqgtni7001/13/2004FIT/FOBT: Average risk01/13/2004Fecal-DNA (Cologuard): Average risk01/13/2004Sigmoidoscopy/CT vozynrfkisgf07/04/2004Pneumococcal 50+ years Vaccine (1 of 1 - PCV)2009Shingles vaccine (1 of 2)2009DEXA (modify frequency per FRAX score)2014Flu vaccine (#1)10/09/2024OVID-19 Vaccine ( - season)2024Respiratory Syncytial Virus (RSV) or age 60 yrs+ (1 - 1-dose 75+ series)2034Hepatitis A vaccineAged OutNo longer eligible based on patient's age to complete this topicHepatitis B vaccine Aged OutNo longer eligible based on patient's age to complete this topicHib vaccineAged OutNo longer eligible based on patient's age to complete this topic Meningococcal (ACWY) vaccineAged OutNo longer eligible based on patient's age to complete this topicMeningococcal B vaccineAged OutNo longer eligible based on patient's age to complete this topicPolio vaccineAged OutNo longer eligible based on patient's age to complete this topic Insurance Care Teams Team MemberRelationshipSpecialtyStart DateEnd Date Son Irizarry DO [address] [place] [address] [facility]nal Nycmqqzr32/12/25
[2025-01-23 07:56] LABS: Cholesterol 173 mg/dL (<=200); HDL Cholesterol 53 mg/dL (40-60); Triglycerides 49 mg/dL (<=150); VLDL CHOLESTEROL 9.8 mg/dL
== END 2025-01-23 07:12 | disposition home or self-care (01) ==
LOC: LAB 07:11
PROVIDERS: PCP Internal Medicine
DX: E78.2 Mixed hyperlipidemia (principal); Z78.9 Other specified health status; E78.019 Familial hypercholesterolemia, unspecified
CPT/HCPCS: 36415; 80061

== ENCOUNTER 2025-03-05 06:51 | Outpatient (OUT) | payer OTHER, SELFPAY ==
--- OUTSIDE RECORDS SUMMARY | 2025-03-05 06:54 | XMS_ITS | Encounter Summary ---
Author Organization [facility] Address [address] [place] [address] Care Team Providers Care Physical Education Specialist Name Role Phone Son Irizarry DO Primary Care Provider [phone] Encounter Details DateTypeDepartmentCare Team (Latest Contact Info)Kwzrlvysvbi04/19/2025Telephone [facility] [address] [facility] [place] [address] Christopher Olivia DO [address] [facility] [address] [place], [facility] Social History Tobacco UseTypesPacks/DayYears UsedDateSmoking Tobacco: FormerCigarettesQuit: 2010Smokeless Tobacco: NeverAlcohol UseStandard Drinks/WeekCommentsNever0 (1 standard drink = 0.6 oz pure alcohol)CommentsNoSex and Gender InformationValueDate RecordedSex Assigned at MeipsRnypav88/23/2023 9:37 AM EDT Legal UjhYmpnov14/15/2023 7:59 PM EDTGender PvgeqogyAmhyut44/23/2023 9:37 AM EDT Sexual XdxbwgkhcdrSrzzkoan83/23/2023 9:37 AM EDTdocumented as of this encounter Miscellaneous Notes * Telephone Encounter - Nikki Serra LPN - 02/26/2025 10:54 AM EST Patient called asking for mammogram order be sent to hospital. Orders sent and patient was called and made aware. documented in this encounter Plan of Treatment DateTypeDepartmentCare Team (Latest Contact Info)Rdbaektsytf69/02/2026 8:30 AM EDTProcedure Visit [facility] [address] [facility] [place] [address] Christopher Olivia, [address] [facility] [place] [address] NameTypePriorityAssociated DiagnosesOrder ScheduleBilateral screening mammogram ImagingRoutine Breast cancer screening by mammogram Expected: 02/26/2025 (Approximate), Expires: 04/29/2026documented as of this encounter Visit Diagnoses Diagnosis Breast cancer screening by mammogram documented in this encounter Care Teams Team MemberRelationshipSpecialtyStart DateEnd Date Son Irizarry DO [address] [facility] [place] [address] PCP - GeneralInternal Medicine08/02/22documented as of this encounter
--- OUTSIDE RECORDS SUMMARY | 2025-03-05 06:54 | XMS_ITS | Clinical Summary ---
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 Name Role Phone Son Irizarry DO Primary Care Provider [phone] Allergies Active AllergyReactionsCriticalityNoted DateCommentsCat KghtwdXgpzz76/25/2023 StatinsRash,AwpncrsTks35/13/2023 Medications MedicationSigDispense QuantityRefillsLast FilledStart DateEnd DateStatus hydroCHLOROthiazide (HYDRODiuril) 25 MG tablet Take 25 mg by mouth in the morning.Active biotin 34075 MCG tablet 1 (one) time each day at the same time.Active aspirin 81 MG EC tablet Take 81 mg by mouth in the morning.Active cyanocobalamin (Vitamin B-12) 1000 MCG/ML injection 1 mL Hognivdux93/24/2023ctive Trelegy Ellipta 100-62.5-25 MCG/ACT aerosol powder 1 [...] tablet 11009/09/2023ctive Active Problems ProblemNoted DateDiagnosed DateAcute /23/2023rteriosclerotic heart bvckkrk1808/31/2022trophy of mrbthr4008/31/2022entrilobular uiowshpca09/23/2023 Chest pain08/31/2022hronic qucnujt7908/31/2022hronic obstructive pulmonary tajfqrn4108/31/2022ongenital cavus deformity of left foot08/31/2022yspnea on wqrmgiye17/23/2023eneralized anxiety ocfmrumk18/23/2023History of COVID-19 08/31/2022Lateral pawwicptdkkck22/23/2023iverticulum of renal calyx08/31/2022 Osteopenia of lumbar spine08/31/2022Overweight (BMI 25.0-29.9)08/31/2022 Pernicious yeukbe5408/31/2022olyp of colon08/31/2022ure hypercholesterolemia 08/31/2022Stable mvvvfk8308/31/2022Urinary tract qsmrprdiv23/23/2023Vitamin D zyddljlpqe90/23/2023Recurrent sinus caxzmwodkn90/24/2023hronic cough08/01/2022 Chronic kzmgtiio91/24/2023Former mukmfx6108/01/2022 Overview (08/31/2022): Last Assessment & Plan: Former smoker and remains cessation Multiple pulmonary tyafzeh5808/01/2022Statin ierqwyckyip87/24/2023 Overview (08/31/2022): mylagias- is intolerant in the past with lipitor, crestor, zocor, pravastatin and Zetia (GI upset). Last Assessment & Plan: Remains on pralulent injections for lipid management Essential plkotyjfhbkh60/13/2023 Overview (08/31/2022): Last Assessment & Plan: Hypertension is well controlled at home typically 115-126/70 Continue current med regime. History of malignant neoplasm of uterine body05/21/20226938Jajlukoikvtvoh89/13/2023 Overview (08/31/2022): Last Assessment & Plan: Pt has been intolerant to multiple statins in the past including lipitor, pravastatin, crestor, zocor and zetia- with horrible myalgias. Previous store lead started her on pralulent 75 mg q 2 weeks for hyperlipidemia and CAD. Her Lipids are improved but not at goal of Chol < 200 or LDL < 70 with CAD. Therefore will increase pralulent to 150 mg subcutaneous q 2 weeks and repeat lipids level in 3 months- pt voiced understanding and agreement. Increased frequency of uaaajbedq93/13/2023Microscopic gyvshmrgb68/13/2023 Yiieoyeg52/13/2023Subdural /13/2023Urinary bbaqdfxgx50/13/2023 Encounters DateTypeDepartmentCare LgawUszuyvxircf99/19/2025Telephone [facility] [address] [place] [address] [place] [phone] Christopher Olivia DO from Last 3 Months Family History Medical HistoryRelationNameCommentsHeart diseaseBrotherThyroid diseaseDaughter Heart diseaseFatherHyperlipidemiaFatherHypertensionFatherLung cancerFather ArthritisMotherHeart diseaseMotherHypertensionMotherHeart diseasePaternal GrandfatherDiabetesPaternal GrandmotherCOPDSiblingHeart diseaseSibling HyperlipidemiaSiblingHypertensionSiblingRelationNameStatusCommentsBrother2 brothersDaughterFatherDeceasedMotherDeceasedPaternal GrandfatherPaternal GrandmotherSiblingSister4 sistersSonAlive2 sons Social History Tobacco UseTypesPacks/DayYears UsedDateSmoking Tobacco: FormerCigarettesQuit: 2011Smokeless Tobacco: Never Tobacco Cessation:Counseling Given: Not Answered Alcohol UseStandard Drinks/WeekCommentsNever0 (1 standard drink = 0.6 oz pure alcohol)CommentsNoSex and Gender InformationValueDate RecordedSex Assigned at NeqckHigggy36/23/2023 9:37 AM EDTLegal FcvYjuynm91/15/2023 7:59 PM EDTGender GsrtshhhWlpqng84/23/2023 9:37 AM EDTSexual OrientationStraight 07/31/2022 9:37 AM EDT Last Filed Vital Signs Vital SignReadingTime TakenCommentsBlood Kmgmhbhh707/7007 4:20 PM EDT Cikfx002408/02/2022 3:54 PM XWRCczhdlbjocd59.4 ??C (97.5 ??F)08/02/2022 3:54 PM EDTRespiratory Rate--Oxygen Vblhwsmpme32%08/02/2022 3:54 PM EDTInhaled Oxygen Concentration--Hqwixx13.3 kg (155 lb)07/30/2023 4:05 PM JTVPyzbet577.1 cm (5' 5 )07/30/2023 4:05 PM EDTBody Mass Index25.7907/30/2023 4:05 PM EDT Plan of Treatment DateTypeDepartmentCare Team (Latest Contact Info)Vajipkxacxo85/02/2026 8:30 AM EDTProcedure Visit [facility] [address] [facility] [place] [address] Christopher Olivia, [address] [facility] [address] [place], [place] [address] Health MaintenanceDue DateLast DoneCommentsCT Osydxefhlvee1959Colonoscopy 1959Colorectal Cancer Wslvwbihb1959FIT-DNA1959FIT1959 FOBT1959 1299Jeqybmeasnyrl1959Pneumococcal Vaccine: 65+ Years (1 of 1 - PCV)01/12/20097773Goujnbmmz15, 05/18/2022Influenza Vaccine (#1) 2024HPV/AgpcwiWrckirtytpkj23/11/2023ervical Cancer ScreeningDiscontinued Pap QocilTcfdxelzrcpz56/01/2024, 04/24/2021 Procedures Procedure NamePriorityDate/TimeAssociated DiagnosisCommentsMM TOMOSYNTHESIS SCREENING BI10/15/2023 1:11 PM EDT PAP LVUNBYhqfmbq66/01/2024 12:00 AM EDTTHINPREP PAP AND HPV MRNA E6/E7 W/RFL HPV 16,18/56Uopzieg75/11/2023 10:24 AM EDT Well woman exam with routine gynecological exam from Last 3 Months or Most Recently Relevant to Health Maintenance Results * MM TOMOSYNTHESIS SCREENING BI (10/15/2023 1:11 PM EDT)Anatomical Region LateralityModalityOtherSpecimen (Source)Anatomical Location / Laterality Collection Method / VolumeCollection TimeReceived Time10/15/2023 1:11 PM EDT Narrative 10/15/2023 1:12 PM EDT [facility] ?[address] ? [place] [address] ? Mammography Report ? Signed ? Patient: PAM BURNETT ?MR#: [id number] ?? : 1960 ?Acct:[id number] ?? Age/Sex: 63 / F ?ADM Date: 10/14/23 ?? Loc: MAMMO ? Attending Dr: Christopher Olivia D.O. ? Ordering Physician: Christopher Olivia D.O. ?Results: ? Date of Service: 10/14/23 ?Follow Up: ? Procedure(s): MM tomosynthesis screening BI ?? Accession Number(s): [id number] ? cc: Son Irizarry D.O.; Christopher Olivia D.O. ? Patient Name: ? PAM ALVAREZVER ? MR#: [id number] ? : 1960 ? Exam Date: 10/14/2023 ?? Ordering Doctor: DR Christopher Olivia . ? RADIOLOGY REPORT ? PROCEDURE: ? MM TOMOSYNTHESIS SCREENING BI ? COMPARISON: ? MG MAMM SCREEN 3D ISAIAH CAD, 05/18/2022. ??MG MAMM DIAGNOSTIC 3D ?? ISAIAH CAD, 05/05/2021. ??MG MAMM ISAIAH SCRN W CAD DIG, 11/20/2012. ? INDICATIONS: ? Screening ? Calculator Name ? NCI Breast Cancer Risk Assessment Tool ?? 5 Year Breast Cancer Risk ? 1.30% ?? Lifetime Breast Cancer Risk ? 5.10% ?? Personal Breast Cancer ?No ?? Personal Ovarian Cancer ? Yes, Ovarian 1981 ?? Treatments ? Hysterectomy, oophrectomy ?? Family Cancers ? Father with lung cancer at age 55. ? LOCATION: ? [facility] ? BREAST COMPOSITION: ? The breasts are almost entirely fatty. ? FINDINGS: ? DIAGNOSTIC CATEGORY 1--NEGATIVE. ? RIGHT BREAST: ??No significant suspicious finding. ??No significant change has ?? occurred. ? LEFT BREAST: ??No significant suspicious finding. ??No significant change has ?? occurred. ? RECOMMENDATIONS: ? ROUTINE MAMMOGRAM AND CLINICAL EVALUATION IN 12 MONTHS. ? PLEASE NOTE: ??A NORMAL MAMMOGRAM DOES NOT EXCLUDE THE POSSIBILITY OF BREAST ?? CANCER. ??A CLINICALLY SUSPICIOUS PALPABLE LUMP SHOULD BE BIOPSIED. ? Dictated by: Simon Yusuf M.D. on 10/15/2023 at 12:35 ? Approved by: Simon Yusuf M.D. on 10/15/2023 at 13:10 ? Dictated By: ?Simon Yusuf M.D. ? Signed By: ?10/15/231311 ? DD/ 10 ? TD/TT: ? Soil Biology Teacher: Procedure Note Radiology, Radiologist, MD - 10/15/2023 [place] [address] Mammography Report Signed Patient: PAM BURNETT SMR#: [id number] : 1960cct:[id number] Age/Sex: 63 / FADM Date: 10/14/23 Loc: MAMMO Attending Dr: Christopher Olivia D.O. Ordering Physician: Christopher Olivia D.O.Results: Date of Service: 10/14/23Follow Up: Procedure(s): MM tomosynthesis screening BI Accession Number(s): [id number] cc: Son Irizarry D.O.; Christopher Olivia D.O. Patient Name: PAM BURNETT MR#: [id number] : 1960 Exam Date: 10/14/2023 Ordering Doctor: DR Christopher Olivia . RADIOLOGY REPORT PROCEDURE: MM TOMOSYNTHESIS SCREENING BI COMPARISON: MG MAMM SCREEN 3D ISAIAH CAD, 05/18/2022. MG MAMM NAJKRXXYDA9I ISAIAH CAD, 05/05/2021. MG MAMM ISAIAH SCRN W CAD DIG, 11/20/2012. INDICATIONS: Screening Calculator Name NCI Breast Cancer Risk Assessment Tool 5 Year Breast Cancer Risk 1.30% Lifetime Breast Cancer Risk 5.10% Personal Breast Cancer No Personal Ovarian Cancer Yes, Ovarian 1981 Treatments Hysterectomy, oophrectomy Family Cancers Father with lung cancer at age 55. LOCATION: [facility] BREAST COMPOSITION: The breasts are almost entirely fatty. FINDINGS: DIAGNOSTIC CATEGORY 1--NEGATIVE. RIGHT BREAST: No significant suspicious finding. No significant changehas occurred. LEFT BREAST: No significant suspicious finding. No significant changehas occurred. RECOMMENDATIONS: ROUTINE MAMMOGRAM AND CLINICAL EVALUATION IN 12 MONTHS. PLEASE NOTE: A NORMAL MAMMOGRAM DOES NOT EXCLUDE THE POSSIBILITY OFBREAST CANCER. A CLINICALLY SUSPICIOUS PALPABLE LUMP SHOULD BE BIOPSIED. Dictated by: Simon Yusuf M.D. on 10/15/2023 at 12:35 Approved by: Simon Yusuf M.D. on 10/15/2023 at 13:10 Dictated By: Simon Yusuf M.D. Signed By:10/15/23 1312 DD/ 1311 TD/TT: Soil Biology Teacher: Authorizing ProviderResult TypeResult StatusCorey Ne DOCLINISYNC IMAGINGFinal Result * Pap Smear (09/09/2023 12:00 AM EDT)Specimen (Source)Anatomical Location / LateralityCollection Method / VolumeCollection TimeReceived TimeSwabCervical swab / Unknown Narrative Authorizing ProviderResult TypeResult StatusCorey Ne DOLAB CYTOLOGY ORDERABLESFinal ResultPerforming OrganizationAddressCity/State/ZIP CodePhone Number EXTERNAL LAB * THINPREP PAP AND HPV MRNA E6/E7 W/RFL HPV 16,18/45 (10/19/2022 10:24 AM EDT) Narrative Authorizing ProviderResult TypeResult StatusAmy Morganza PALAB BLOOD ORDERABLES Final ResultPerforming OrganizationAddressCity/State/ZIP CodePhone Number EXTERNAL LAB from Last 3 Months or Most Recently Relevant to Health Maintenance Insurance Care Teams Team MemberRelationshipSpecialtyStart DateEnd Date Son Irizarry DO [address] [facility] [place] [address] PCP - GeneralInternal Medicine08/02/22
--- OUTSIDE RECORDS SUMMARY | 2025-03-05 06:54 | XMS_ITS | Encounter Summary ---
Author Organization [facility] Address [address] [facility] [address] [facility], [address] [place] [address] Care Team Providers Care [employer] French Teacher Name Role Phone Son Irizarry DO Primary Care Provider [phone] Encounter Details DateTypeDepartmentCare Team (Latest Contact Info)Rvvrnhxvtpp96/04/2025bstract [facility] [address] [place] [address] [address] [place] [phone] Octavio JoaquinDO [address] [facility] [address] [place] [phone] Social History Tobacco UseTypesPacks/DayYears UsedDateSmoking Tobacco: FormerCigarettes1.530 1978 - 2008Smokeless Tobacco: NeverAlcohol UseStandard Drinks/WeekCommentsNot Currently0 (1 standard drink = 0.6 oz pure alcohol)AUDIT-CAnswerDate RecordedQ1: How often do you have a drink containing alcohol?Never02/10/2025verage Number of DrinksNot on file02/10/2025Frequency of Binge DrinkingNot on file02/10/2025 CommentsUnknownSex and Gender InformationValueDate RecordedSex Assigned at JisxoIqcgbn61/13/2025 11:54 AM ESTLegal UjsGteuph32/10/2013 11:53 AM EST Gender DwwuggraWzhqza80/13/2025 11:54 AM ESTSexual PsvjjxfydwqZdsjhnef33/13/2025 11:54 AM ESTdocumented as of this encounter Plan of Treatment DateTypeDepartmentCare Team (Latest Contact Info)Bqzygfovjkg70/08/2026 8:00 AM ESTOffice Visit [facility] [address] [facility] [address] [place] [address] Joaquin Nicholson DO [address] [facility] [address] [place] [address] 1 YR F/U COPDdocumented as of this encounter Visit Diagnoses Not on filedocumented in this encounter Additional Health Concerns AssessmentNoted TimeA fall risk assessment has been completed for the patient 02/10/2025 8:06 AM ESTdocumented as of this encounter Care Teams Team MemberRelationshipSpecialtyStart DateEnd Date Son Irizarry DO [address] [place] [address] PCP - GeneralInternal Wjrnqehv32/12/25documented as of this encounter
--- OUTSIDE RECORDS SUMMARY | 2025-03-05 06:54 | XMS_ITS | Clinical Summary ---
Author Organization [facility] Address [address], [address] [place] [address] Care Team Providers Care Voyage Management System Operator Name Role Phone Son Irizarry DO Primary Care Provider [phone] Allergies Active AllergyReactionsCriticalityNoted PirhDkacolqaFkbtihbXzwcxxmKcq51/13/2025 Medications MedicationSigDispense QuantityRefillsLast FilledStart DateEnd DateStatus aspirin EC 81 MG EC tablet Take 1 tablet by mouth dailyActive PRALUENT 150 MG/ML SOAJ INJECT THE CONTENTS OF 1 PEN SUBCUTANEOUSLY EVERY 2 WEEKS5Active azithromycin (ZITHROMAX) 250 MG tablet Take by mouth03/11/2024tive NEXLETOL 180 MG TABS 180 mg5Active buPROPion (WELLBUTRIN XL) 300 MG extended release tablet Take 1 tablet by mouth every bhjpszb1409/10/2024tive cyanocobalamin 1000 MCG/ML injection 1 mL04/13/2024tive guaiFENesin (MUCINEX) 600 MG extended release tablet Take 1 tablet by mouth 2 times daily5Active hydroCHLOROthiazide (HYDRODIURIL) 25 MG tablet Take 1 tablet by mouth daily5Active magnesium oxide (MAG-OX) 400 MG tablet 1 tablet dailyActive metoprolol succinate (TOPROL XL) 25 MG extended release tablet Take 1 tablet by mouth daily5Active nystatin (MYCOSTATIN) 111081 UNIT/ML suspension Nystatin 100,000 unit/mL suspension Active 5 ML PO Four times daily 200 November 06, 2024 12:00am swish for 30 seconds and swallow Complies with drug ntrhwwy47/29/2025Active Multiple Vitamin (MULTIVITAMIN) TABS tablet Take 1 tablet by mouth dailyActive albuterol sulfate HFA (PROVENTIL;VENTOLIN;PROAIR) 108 (90 Base) MCG/ACT inhaler Indications:Centrilobular emphysema (HCC)Inhale 2 puffs into the lungs every 4 hours as needed for Shortness of Breath 54 g 5Active hvghjfzbybm-wutvdnspa-kwpwvf (TRELEGY ELLIPTA) 100-62.5-25 MCG/ACT AEPB inhaler Indications:Centrilobular emphysema (HCC)Inhale 1 puff into the lungs daily Rinse after use 180 each 5Active albuterol sulfate HFA (PROVENTIL;VENTOLIN;PROAIR) 108 (90 Base) MCG/ACT inhaler Inhale 2 puffs into the lungs every 4 hours as needed for Shortness of Breath or Ihtoseeb84/03/2025Discontinued(REORDER) TRELEGY ELLIPTA 100-62.5-25 MCG/ACT AEPB inhaler Inhale 1 puff into the lungs daily02/10/2025Discontinued(REORDER) Active Problems ProblemNoted DateDiagnosed DateCentrilobular emphysema Assessment & Plan (02/10/2025 8:54 AM EST): She continues to have an excellent response to Trelegy 100 without any reported exacerbations, and continues to have rare albuterol use. Refilled Trelegy and albuterol today. F/U 1 year or sooner if needed.Orders: albuterol sulfate HFA (PROVENTIL;VENTOLIN;PROAIR) 108 (90 Base) MCG/ACT inhaler; Inhale 2 puffs into the lungs every 4 hours as needed for Shortness of Breath bxxrshqzsie-fhjbekmys-albiwn (TRELEGY ELLIPTA) 100-62.5-25 MCG/ACT AEPB inhaler; Inhale 1 puff intothe lungs daily Rinse after use Multiple pulmonary nodules Assessment & Plan (02/10/2025 8:54 AM EST): History of LDCT 07/08/2023 with a new 4mm RUL nodule which resolved on F/U CT chest 04/27/2024; previously identified nodules remain stable in size & number as far back as 10/20/2020 (largest 6mm inRLL). She is no longer an LDCT candidate as she quit smoking >15 years ago. However, she was exposed to radon @ [employer] (which is believed to have been mitigated). Discussed LDCT is recommended d/t radon exposure, but is unfortunately not a typically covered benefit. As radon is an additional risk factor for lung cancer in addition to smoking, will continue to monitor the nodules. A 1 year F/U CT chest without contrast is due mid-April 2025. Orders: CT CHEST WO CONTRAST; Future Radon exposure, sequela Assessment & Plan (02/10/2025 8:54 AM EST): Elevated radon levels @ her job ([employer]). It is believed to have been mitigated; she moved her office out of the area and never returned. Radon exposure is an independent risk factor for lung cancer. F/U CT chest has been ordered (see above). Orders: CT CHEST WO CONTRAST; Future History of tobacco abuse Assessment & Plan (02/10/2025 8:54 AM EST): The patient was evaluated for low-dose CT (LDCT) for lung cancer screening. Current Medicare-accepted eligibility criteria were reviewed. - Age 50-77 years: Patient's age = 65 y.o. - Asymptomatic (no signs or symptoms of lung cancer): Yes - Tobacco Use Smoking status: Former Packs/day: 0.00 Years: 1.5 packs/day for 30.0 years (45.0 ttl pk-yrs) Types: Cigarettes Start date: 1978 Quit date: 2008 Years since quittin.9 Smokeless tobacco: Never Based on the above, she is not candidate for LDCT screening for the following reason(s): quit smoking >15 years ago and is being followed with diagnostic CT chest for another pulmonary condition Encounters DateTypeDepartmentCare OerlQaucpygvepq48/04/2025Abstract [facility] Pulmonology [address], [address] [place] [address] Joaquin Nicholson DO 02/10/2025 8:00 AM ESTOffice Visit [facility] [address], [address] [place] [address] Joaquin Nicholson DO Centrilobular emphysema (Primary Dx); Multiple pulmonary nodules; Radon exposure, sequela; 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 of tobacco abuse; 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 /03/2025bstract [facility] Pul[facility]ology [address], [address] [place] [address] Joaquin Nicholson DO 01/20/2025Telephone [facility] Pulmonology [address] [place] [id number] Joaquin Nicholson DO Otherfrom Last 3 Months Family History Medical HistoryRelationNameCommentsCOPDBrotherHeart DiseaseBrotherHypertension BrotherAlcohol AbuseFatherCancerFatherHeart DiseaseFatherLung CancerFather ArthritisMotherHeart DiseaseMotherRelationNameStatusCommentsBrotherFatherMother Social History Tobacco UseTypesPacks/DayYears UsedDateSmoking Tobacco: FormerCigarettes1.530 1978 - 2008Smokeless Tobacco: Never Tobacco Cessation:Counseling Given: Yes Alcohol UseStandard Drinks/WeekCommentsNot Currently0 (1 standard drink = 0.6 oz pure alcohol)AUDIT-CAnswerDate RecordedQ1: How often do you have a drink containing alcohol?Never02/10/2025verage Number of DrinksNot on file02/10/2025 Frequency of Binge DrinkingNot on file02/10/2025CommentsUnknownSex and Gender InformationValueDate RecordedSex Assigned at RzdftHqlekh15/13/2025 11:54 AM ESTLegal WgsYgzebu69/10/2013 11:53 AM ESTGender BxfpofhqTvbqel33/13/2025 11:54 AM ESTSexual LockiwgswbwRtrcwsen42/13/2025 11:54 AM EST Last Filed Vital Signs Vital SignReadingTime TakenCommentsBlood Wyhzrpqu290/7002/10/2025 8:02 AM EST Sgdvz141702/10/2025 8:02 AM SXJDsuzwbggjmb83 ??C (96.8 ??F)02/10/2025 8:02 AM EST Respiratory Lwrl361504/13/2024 8:02 AM ESTOxygen Dzrbpkffac55%02/10/2025 8:02 AM ESTon room airInhaled Oxygen Concentration--Mvmabp01.8 kg (156 lb)02/10/2025 8:02 AM ESTpatient reported diufytOiyluv920.6 cm (5' 4 )02/10/2025 8:02 AM EST Body Mass Index26.7802/10/2025 8:02 AM EST Plan of Treatment DateTypeDepartmentCare Team (Latest Contact Info)Pniyekcnuyg62/08/2026 8:00 AM ESTOffice Visit [facility] [address], [address] [place] [address] Joaquin Nicholson DO [address] [place] [address] 1 YR F/U COPDHealth MaintenanceDue DateLast DoneCommentsDepression Screen 1971Hepatitis C nyhbpa3301/12/1977DTaP/Tdap/Td vaccine (1 - Tdap)1978 Pneumococcal 50+ years Vaccine (1 of 2 - PCV)1978Diabetes bncakx5901/12/1994 Fkouvt8101/12/19990352Vfvjuoaojtb62/04/2004Colorectal Cancer Ayonxt2801/13/2004FIT/FOBT: Average risk01/13/2004Fecal-DNA (Cologuard): Average risk01/13/2004 Sigmoidoscopy/CT nbrgljxybbha97/04/2004Shingles vaccine (1 of 2)2009DEXA (modify frequency per FRAX score)2014Respiratory Syncytial Virus (RSV) or age 60 yrs+ (1 - Risk 60-74 years 1-dose series)2019Breast cancer yunmzq55503/12/2022Flu vaccine (#1)5COVID-19 Vaccine ( season)509, 10/21/2020Hepatitis A vaccineAged OutNo longer eligible based on [...] patient's age to complete this topic Insurance Advance Directives NameRelationshipHealthcare Agent RelationshipCommunicationJulie Long Primary Decision Maker* Care Teams Team MemberRelationshipSpecialtyStart DateEnd Date Son Irizarry DO [address] [place] [address] PCP - GeneralInternal Tihsxphq53/12/25
--- OUTSIDE RECORDS SUMMARY | 2025-03-05 06:54 | XMS_ITS | Clinical Summary ---
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 Role Phone Son Irizarry DO Primary Care Provider [phone] Allergies Active AllergyReactionsCriticalityNoted KpurRzyfomilDcsltxq-Kux-Mfo Reductase MzcsepdujkOqhdkei66/13/2023 Medications MedicationSigDispense QuantityRefillsLast FilledStart DateEnd DateStatus cyanocobalamin (Vitamin B-12) 1,000 mcg/mL injection 04/03/2022ctive buPROPion XL (Wellbutrin XL) 300 mg 24 hr tablet 04/02/2022ctive hydroCHLOROthiazide (HYDRODiuril) 25 mg tablet Take 25 mg by mouth in the morning.04/02/2022ctive aspirin 81 mg EC tablet Take 81 mg by mouth in the morning.Active kzbcbjmfbol-ptavvaaeq-elafyedn (Trelegy Ellipta) 100-62.5-25 mcg blister with device 1 puff 1 (one) time each day at the same time.06/25/2022ctive potassium citrate CR (Urocit-K-10) 10 mEq ER tablet Take 10 mEq by mouth with breakfast and with evening meal.06/19/2022ctive metoprolol succinate XL (Toprol-XL) 25 mg 24 hr tablet Indications:Coronary artery disease involving rampart coronary artery of rampart heart without angina pectoris,Primary hypertensionTAKE 1 TABLET BY MOUTH IN THE MORNING (DO NOT CRUSH OR CHEW) 90 tablet 5Active Nexletol 180 mg tablet Indications:Familial hypercholesterolemiaTAKE 1 TABLET BY MOUTH IN THE MORNING 90 tablet 5Active Praluent Pen 150 mg/mL pen injector Indications:Mixed hyperlipidemia,Statin intoleranceINJECT THE CONTENTS OF 1 PEN SUBCUTANEOUSLY EVERY 2 WEEKS 6 mL 307/18/2025Active magnesium oxide (Mag-Ox) 400 mg tablet 400 mg in the morning.Active Active Problems ProblemNoted DateDiagnosed XxrtIorqytvsxwmplb56/06/2025Hormone imbalance 01/14/20252222Fbwxhjfha07/06/2025Nicotine oepxidpxb31/06/2025Radon exposure 01/14/2025Primary fldnrykw77/20/2024hronic bronchitis, ivytdw8408/07/2023GERD (gastroesophageal reflux disease)08/07/2023Long term (current) use of inhaled bkrdeawg23/29/5651Mecgcpn59/29/2024trophy of bopwsg43 Centrilobular amvwiubhb73hronic emknvpl70 Chronic obstructive pulmonary nqbeqrm11ongenital cavus deformity of left footyspnea on jvzfqpaa48/23/2023 11/02/2022eneralized anxiety wdkaxvoz46History of COVID-19 Lateral mbhrcsaaeaitw38Osteopenia of lumbar spineStable ujrzco83 Assessment & Plan (01/30/2023 3:44 PM EST): Denied any angina since last visit Pure edwkxingvurovfhftzto13/23/202308/25/2023 Assessment & Plan (01/30/2023 3:45 PM EST): [...] Rivers-interventionalist about how to proceed Polyp of colon06/23/230313/ernicious Overweight (BMI 25.0-29.9)Urinary tract luthzbtdm94/23/2023 11/02/2022Vitamin D sfmfvisooc83/23/202308/hronic cough08/01/2022 Multiple pulmonary sycibbn5808/01/2022hronic yxoovaaa68/24/2023Recurrent sinus fyynqkbbjk64/24/2023oronary artery disease of rampart artery of rampart heart with stable angina chafrzlt95/24/2023 Assessment & Plan (01/30/2023 3:57 PM EST): [...] as tolerated and continue all medications. Statin roqkbtqsvsk93/24/2023 Overview (08/01/2022): mylagias- is intolerant in the past with lipitor, crestor, zocor, pravastatin and Zetia (GI upset). Assessment & Plan (01/30/2023 3:57 PM EST): Currently treated with praluent injection Assessment & Plan (08/01/2022 4:46 PM EDT): Remains on pralulent injections for lipid management Former fhismt36/ Assessment & Plan (08/01/2022 4:47 PM EDT): Former smoker and remains cessation Chronic ftezokid45/13/2023iverticulum of renal calyx05/21/2022Flank pain 05/21/2022History of malignant neoplasm of uterine body05/21/2022Hyperlipidemia 05/21/2022 Assessment & Plan (08/01/2022 4:35 PM EDT): Pt has been intolerant to multiple statins in the past including lipitor, pravastatin, crestor, zocor and zetia- with horrible myalgias. Previous channel marketing specialist started her on pralulent 75 mg q 2 weeks for hyperlipidemia and CAD. Her Lipids are improved but not at goal of Chol < 200 or LDL < 70 with CAD. Therefore will increase pralulent to 150 mg subcutaneous q 2 weeks and repeat lipids level in 3 months- pt voiced understanding and agreement. Kqwlgpdiwuhk34/13/2023 Assessment & Plan (01/30/2023 3:46 PM EST): Hypertension is currently well controlled 116/76 Continue all medications- hydrochlorothiazide Assessment & Plan (08/01/2022 4:36 PM EDT): Hypertension is well controlled at home typically 115-126/70 Continue current med regime. Increased frequency of chrbfucmh47/13/2023Microscopic jgokamusf45/13/2023 Fuujkten89/13/2023Subdural /13/2023Urinary qljgacqnz44/13/2023ge- related osteoporosis without current pathological ortkneqy21/19/2019 Encounters DateTypeDepartmentCare NinbGjiqbbgiefe64/06/2025 3:00 PM ESTOffice Visit [facility] [place] [address] [place] [address] Adolph Ruiz CNP Coronary artery disease involving rampart coronary artery of rampart heart without angina pectoris (Primary Dx); Familial hypercholesterolemia, unspecified type; Primary hypertension; Statin intolerance; Mixed hyperlipidemiafrom Last 3 Months Family History Medical HistoryRelationNameCommentsAtrial fibrillationBrotherCoronary artery diseaseBrotherHeart failureBrothervalve replacementMotherCoronary artery disease SisterPeripheral vascular diseaseSisterRelationNameStatusCommentsBrotherMother Sister Social History Tobacco UseTypesPacks/DayYears UsedDateSmoking Tobacco: FormerCigarettesQuit: 2009Smokeless Tobacco: Never Tobacco Cessation:Counseling Given: Not Answered [place] Safety & EnvironmentAnswerDate RecordedFear of Current or Ex-PartnerNot on file05/02/2023Emotionally AbusedNot on file05/02/2023hysically AbusedNot on file05/02/2023Sexually AbusedNot on file05/02/2023hysically or Sexually Abused Not on file05/02/2023CommentsUnknownSex and Gender InformationValueDate RecordedSex Assigned at SfsyvKhxupl63/06/2025 2:42 PM ESTLegal SexFemale 09/06/2021 10:40 PM EDTGender CukcstuaTafuvn90/06/2025 2:42 PM ESTSexual OrientationChoose not to gfuqwqno26/06/2025 2:42 PM EST Last Filed Vital Signs Vital SignReadingTime TakenCommentsBlood Nlxihtcr726/8201/14/2025 2:56 PM EST Suxfs129701/14/2025 2:56 PM ESTTemperature--Respiratory Rate--Oxygen Fqsmilujjs15% 01/14/2025 2:56 PM ESTInhaled Oxygen Concentration--Mvvrvz61.4 kg (164 lb) 01/14/2025 2:56 PM WAKLrglcc174.6 cm (5' 4 )01/14/2025 2:56 PM ESTBody Mass Index28.15103/16/2024 2:56 PM EST Plan of Treatment Health MaintenanceDue DateLast DoneCommentsCT Wwxfbnjgmnnv1959Colonoscopy 1959Colorectal Cancer Zfjoaqdci1959FIT-DNA1959FIT1959 FOBT1959 8859Gqslvjgozzobx1959Depression Lyjjlhrde06/04/1971Pneumococcal Vaccine: 50+ Years (1 of 2 - PCV)1978Adult Dvarcgr1401/12/1981Zoster Vaccines (1 of 2)2009Fall Risk Zkmcgfvkd67/04/8950Ecjrsimid31/10/2025 05/18/2022OVID-19 Vaccine (3 - 2024- season)509/05/2020, 10/21/2020 Influenza Vaccine (#1)2024HIB VaccinesAged OutNo longer eligible based on patient's age to complete this topicHPV VaccinesAged OutNo longer eligible based on patient's age to complete this topicIPV VaccinesAged OutNo longer eligible based on patient's age to complete this topicMeningococcal B VaccineAged OutNo longer eligible based on patient's age to complete this topicMeningococcal VaccineAged OutNo longer eligible based on patient's age to complete this topic Rotavirus VaccinesAged OutNo longer eligible based on patient's age to complete this topic Insurance Care Teams Team MemberRelationshipSpecialtyStart DateEnd Date Son Irizarry DO [address] [id number] [facility]05/21/22
--- OUTSIDE RECORDS SUMMARY | 2025-03-05 06:54 | XMS_ITS | Patient Health Record ---
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 Role Phone Son Irizarry DO Primary Care Provider Marlene Chapman Unavailable [phone] Allergies Allergen (clinical drug ingredient) Drug/Non Drug Allergy documented on EMR Reaction Allergy Type Onset Date Status Substance with 5-yzrrbif-1-m ethylglutaryl-coenzyme A reductase inhibitor mechanism of action (substance) Statins Myalgia Drug Allergy Active Results Component Value Reference Range Notes CT chest wo con Reviewed date:04/28/2024 08:02:49 AM Interpretation: Performing Lab: Notes/Report: Source Facility: [place] [address] CT Scan Report Signed Patient: PAM BURNETT MR#: [id number] : 1960 Acct:[id number] Age/Sex: 64 / F ADM Date: 04/27/24 Loc: CT Attending Dr: Marlene Milton D.O. Ordering Physician: Marlene Milton D.O. Date of Service: 04/27/24 Procedure(s): CT chest wo con Accession Number(s): [id number] cc: Son Irizarry D.O. [place] [address] Patient Name: PAM BURNETT MRN: [facility]:[id number] date: 1960 Sex: F Assigned Patient Location: CT Current Patient Location: CT Accession/Order Number: [id number] Exam Date: 04/27/2024 08:10 Report Date: 04/27/2024 17:27 At the request of: MARLENE MILTON Procedure: CT chest wo con EXAMINATION: CT chest wo con, 04/27/2024, 8:10 AM EST HISTORY: Multiple Pulmonary Nodules COMPARISON: CT chest 07/08/2023. TECHNIQUE: Multiple axial CT images of the chest were obtained without IV contrast. 2D coronal and sagittal MIP reformations were submitted for review. Dose reduction techniques were achieved by using automated exposure control and/or adjustment of mA and/or kV according to patient size and/or use of iterative reconstruction technique. FINDINGS: HEART AND PERICARDIUM: Cardiac size appears within normal limits. No pericardial fluid or nodularity. CORONARY ARTERIES: Coronary calcifications are moderate. THORACIC AORTA: No aortic aneurysm identified. Moderate calcified plaque. THYROID: Thyroid gland is enlarged and heterogeneous. SUPRACLAVICULAR REGION AND AXILLA: No lymphadenopathy. MEDIASTINUM AND MARCELLE: No lymphadenopathy or masses. ESOPHAGUS: The visualized esophagus appears unremarkable. LUNGS: Central airways are patent. Moderate centrilobular pulmonary emphysema. There is some streak-like bibasilar atelectasis. The 4 mm noncalcified nodule in the right upper lobe has intervally resolved. Stable 6 mm nodule in the lateral right upper lobe (image 43) and 3 mm nodule in the lingula (image 61). No new pulmonary nodules. Several nonobstructing right renal stones. PLEURA: No effusions or pleural nodularity. No pneumothorax. UPPER ABDOMEN: Visualized abdominal soft tissues appear unremarkable, as seen. OSSEOUS STRUCTURES: No aggressive appearing osseous lesions. No compression fracture is identified. Convex right curvature of the dorsal spine with moderate degenerative disc disease. CT/CT chest wo con IMPRESSION: 1. Resolution of a 4 mm nodule in the right upper lobe. Otherwise stable bilateral pulmonary nodules. 12 month follow-up CT is recommend. 2. Pulmonary emphysema with bibasilar atelectasis. 3. No lymphadenopathy. 4. Coronary artery calcific plaque. Electronically authenticated by: DAREK PACK Date: 04/27/2024 17:27 Dictated By: Darek Pack M.D. Signed By: 04/27/241729 DD/ 26 TD/TT: [employer] Operator: Reason For Referral No Information Medications Medication SIG (Take, Route, Frequency, Duration) Notes Start Date End Date Status Trelegy Ellipta 100-62.5-25 MCG/ACT 1 puff Inhalation Once a day; Duration: 90 days Rinse after use; Dispense 3 inhalers ActivePotassiumActivePraluent 75 MG/MLas directed SubcutaneousActive hydroCHLOROthiazide 25 MG1 tablet in the morning Orally Once a dayActiveNexletol 180 MGOral; Duration: 90 DaysActivebuPROPion HCl ER (XL) 300 MG1 tablet in the morning Orally Once a dayActiveCyanocobalamin 1000 MCG/ML1 mL InjectionActive Albuterol Sulfate HFA 108 (90 Base) MCG/ACT2 puffs as needed for SOB Inhalation every 4 hrs; Duration: 90 daysDispense 3 inhalersActiveAspirin EC 81 MG1 tablet Orally Once a dayActiveBenzonatate 200 MG1 capsule as needed for cough Orally Three times a day; Duration: 30 days07/16/2023Not-Taking Immunizations Vaccine Route Administration Date Status Comme nts SARS-COV-2 (COVID 19 Pfizer 30mcg/0.3mL) Unknown 11/11/2020 Administered Social History Tobacco Use: Social History Observation Description Date Details (start date - stop date) Former Smoker NA - NA Tobacco Control (Standard) Question Answer Notes Tobacco use: Former smoker How long has it been since you last smoked?Greater than 10 yearsAdditional Findings: Tobacco euo-ousyFm-bwwt heavy cigarette smoker (40+/day) Problems Problem Type SNOMED Code ICD Code Onset Dates Problem Status W/U Status Risk Notes Problem Centrilobular emphysema (10153617) Centri lobular emphysema (J43.2) ActiveconfirmedProblemBursal cyst (8257431)Other bursal cyst, unspecified site (M71.30)ActiveconfirmedProblemPain in left foot (038521311583593)Pain in left foot (M79.672)ActiveconfirmedProblemLong-term current use of inhaled steroid (859754204)watermaster (current) use of inhaled steroids (Z79.51)Activeconfirmed ProblemCoronary artery disease (83853951)Coronary artery disease (I25.10)Active confirmedProblemMultiple pulmonary nodules (619173894)Multiple pulmonary nodules (R91.8)ActiveconfirmedProblemEx-tobacco user (finding) (861603519)History of tobacco abuse (Z87.891)Activeconfirmed1.5ppd x 30 years, quit 2008ProblemRadon exposure (X39.01XA)ActiveconfirmedProblemHistory of COVID-19 (632893269813528704)History of COVID-19 (Z86.16)Nexggilguuceuqy58/2020 Vital Signs Heart Rate 65 /min 07/14/2024 Tqfpdgiyukz69.0 degrees Zafcqvdwpn72/06/2025Respiratory Rate18 /min07/14/2024 Oiaasruz82 %07/14/2024lood pressure bddzwwdgy18 mm Hg07/14/20242620Idwybj00 in 07/14/2024lood pressure tmlmwmep351 mm Hg07/14/20248459Cklkhm379.0 lbs07/14/2024MI 27.45 kg/m207/14/2024 Encounters Encounter Location Date Provider Diagnosis Pulmonary [facility] [address] [place] [address] 03/12/2024 [facility] Pulmonary Medicine [address] [place] [address]/18/2025 [facility] [place] [address] 10/14/2024[facility] [address] [place] [address]/06/2025[facility] J43.2 ; Multiple pulmonary nodules R91.8 ; Radon exposure X39.01XA ; History of tobacco abuse Z87.891 and alf (current) use of inhaled steroids Z79.51 Assessments Encounter Date Diagnosis (ICD Code) Assessment Notes Treatment Notes Treatment Clinical Notes Section Notes 07/14/2024 Centrilobular emphysema (ICD-10 - J43.2) Continues to do well on Trelegy 100. Relatively asymptomatic at this time. Rare albuterol use. Willcontinue with Trelegy - no changes to regimen today. F/U 1 year or sooner PRN. 07/14/2024Multiple pulmonary nodules (ICD-10 - R91.8) LDCT 07/08/2023 notes new 4mm RUL nodule. This has resolved on F/U CT chest 04/27/2024; previously identified nodules remain stable in size & number as far back as 10/20/2020 (largest 6mm in RLL). Patient remains concerned about the nodules given radon exposure within the last ~ year @ work. Radonis a risk factor for lung cancer. Will order 1 year F/U CT chest without contrast to document stability. 07/14/2024Radon exposure (ICD-10 - X39.01XA) Elevated radon levels @ work ([facility]), her office was evacuated and she has not returned to that former area. She is concerned about the radon exposure and risk of lung cancer. Will repeat CT chest without contrast in 1 year. 07/14/2024History of tobacco abuse (ICD-10 - Z87.891)1.5ppd x 30 years, quit 2008 It has been 15 years since smoking cessation now. No longer meets current LDCT criteria for lung cancer screening. 07/14/2024Long term (current) use of inhaled steroids (ICD-10 - Z79.51) 07/14/2024Other As with last visit, patient voiced she is worried about the heavy coronary calcifications noted once again on LDCT. She already follows with cardiology and at her last visit on 01/30/2023 noted shewas doing well from their standpoint. Plan Of Treatment No Information Insurance Providers Payer Name Payer Address Payer Phone Subscriber Number Group Number Insured Name Patient Relationship to Insured Coverage Start Date Coverage End Date MMO [address] [place], [place] [id number] Pam Burnett Self - patien t is the insured Medical (General) History Medical History History ICD Code Centrilobular emphysema J43.2 Multiple pulmonary nodules R91.8 Coronary artery disease I25.10 Colon polyp K63.5 Generalized anxiety disorder F41.1 Hyperlipidemia type II E78.01 Essential Hypertension I10 Osteopenia of lumbar spine M85.88 Pernicious anemia D51.0 Vaginal atrophy N95.2 Radon exposure X39.01XA History of COVID-19 Z86.16 History of tobacco abuse Z87.891 History of nephrolithiasis Z87.442 History of subdural hematoma Z86.79 Surgical History Surgery Date(Month/Year) appendectomy tonsillectomy and adenoidectomyhysterectomyFoot Surgery-BilateralCardiac Lyjztnbvsyiifxr1274Wfinsjly stentbladder suspensionrotator cuff tear repair-left
--- NOTE | 2025-03-05 07:15 | MM_ITS ---
Patient Name: SVETLANA BURNETT MR#: [id number] : 1960 Exam Date: 03/05/2025 Ordering Doctor: DR DALE WILSON . RADIOLOGY REPORT PROCEDURE: MM TOMOSYNTHESIS SCREENING BI COMPARISON: MM TOMOSYNTHESIS SCREENING BI, 10/14/2023. MG MAMM SCREEN 3D ISAIAH CAD, 05/18/2022. MG MAMM ISAIAH SCRN W CAD DIG, 11/20/2012. INDICATIONS: Screening Calculator Name NCI Breast Cancer Risk Assessment Tool 5 Year Breast Cancer Risk 1.30% Lifetime Breast Cancer Risk 4.70% Personal Breast Cancer No Personal Ovarian Cancer Yes, Ovarian 1981 Treatments Hysterectomy, oophrectomy Family Cancers Father with lung cancer at age 55. LOCATION: [facility] BREAST COMPOSITION: The breasts are almost entirely fatty. FINDINGS: DIAGNOSTIC CATEGORY 1--NEGATIVE. RIGHT BREAST: No significant suspicious finding. LEFT BREAST: No significant suspicious finding. RECOMMENDATIONS: ROUTINE MAMMOGRAM AND CLINICAL EVALUATION IN 12 MONTHS. Dictated by: Vidal Kirkpatrick MD on 03/05/2025 at 12:23 Approved by: Vidal Kirkpatrick MD on 03/05/2025 at 12:26
== END 2025-03-05 06:52 | disposition home or self-care (01) ==
LOC: MAMMO 06:51
PROVIDERS: Visit Provider Obstetrics & Gynecology
DX: Z12.31 Encounter for screening mammogram for malignant neoplasm of breast (principal); Z85.43 Personal history of malignant neoplasm of ovary; Z80.1 Family history of malignant neoplasm of trachea, bronchus and lung
CPT/HCPCS: 77063; 77067